=== PATIENT | female | born 1970 | race Caucasian/White ===

== ENCOUNTER 2023-04-30 17:25 | Emergency (ER) | payer OTHER, SELFPAY ==
--- NOTE | ~2023-04-30 | XR_ITS ---
EXAMINATION: XR CHEST CLINICAL INFORMATION: Chest pain COMPARISON: None available. TECHNIQUE: 2 views of the chest were obtained. FINDINGS: No significant abnormality is noted involving the heart, lungs, mediastinum, bony thorax or soft tissues. XR/XR chest 2V IMPRESSION: Unremarkable examination.
[2023-04-30 17:37] VITALS: BP 126/72; BP 132/85; PULSE 68; PULSE 73; RESP 17; TEMP 37; O2SAT 97; O2SAT 99; BMI 33.5
[2023-04-30 17:43] VITALS: PULSE 69
--- NOTE | 2023-04-30 18:00 | ECG_ITS ---
Test Reason : chest pain Blood Pressure : / mmHG Vent. Rate : 068 BPM Atrial Rate : 068 BPM P-R Int : 150 ms QRS Dur : 086 ms QT Int : 440 ms P-R-T Axes : 044 -20 003 degrees QTc Int : 467 ms Normal sinus rhythm Moderate voltage criteria for LVH, may be normal variant ( R in aVL , Humza product ) Possible Anterior infarct , age undetermined Abnormal ECG No previous ECGs available Referred By: Miguel Angel George Electronically Signed By:BELÉN PERRY MD
--- NOTE | 2023-04-30 18:20 | ED.CHESTPAIN ---
HPI - Chest Pain General Chief Complaint: Chest Pain Stated Complaint: chest pains, per ems Time Seen by Provider: 04/30/23 17:38 Source: patient Mode of arrival: ambulatory Limitations: no limitations History of Present Illness HPI narrative: 52-year-old female complains that is with chest pain. Chest pain started last night. Lasted 20 minutes. Described as pressure. Pressure was moderate in nature. It occurred while at rest lying in bed. She was able to fall asleep afterwards. The pain did not radiate. There is no associated shortness of breath, nausea vomiting. In the morning, patient woke up with severe fatigue and generalized weakness. She also complained of some moderate back pain. The pain in her back did not radiate. There is no numbness or tingling. It was not clearly worse with movement, heavy lifting, bending or position. All of her symptoms are generally getting better. She denies any history of cardiac problems. She does have thyroid dysfunction. She takes levothyroxine for history of papillary thyroid cancer. There have been no recent changes to the dose of her medication. Related Data Previous Rx's Medication Instructions Recorded potassium chloride 20 mEq oral 20 meq PO DAILY 7 days #7 ea 04/30/23 packet Allergies Allergy/AdvReac Type Severity Reaction Status Date / Time latex Allergy Rash Verified 04/30/23 17:43 Penicillins Allergy Palpitation Verified 04/30/23 17:43 s Review of Systems Review of Systems: CONSTITUTIONAL: Denies weight loss, fever and chills. HEENT: Denies changes in vision and hearing. RESPIRATORY: Denies SOB and cough. CV: Denies palpitations + CP. GI: Denies abdominal pain, nausea, vomiting and diarrhea. : Denies dysuria and urinary frequency. MSK: + myalgia and joint pain. SKIN: Denies rash and pruritus. NEUROLOGICAL: Denies headache and syncope. PSYCHIATRIC: Denies recent changes in mood. Denies anxiety and depression. All other ROS are negative unless in HPI [facility] Past Medical History Attestation statement: The following information was validated with the patient. (Hypothyroidism, thyroid cancer) [facility] Narrative: Thyroidectomy Social History Social History Alcohol intake: never Smoked in Last 30 Days: No Use of substances other than those prescribed or required for medical reasons: No Advance Directives: No Advance Directives Information Provided: No Physical Exam Vital Signs: Vital Signs: Last Vital Signs Temp 98.6 F 04/30/23 17:37 Pulse 68 04/30/23 17:37 Resp 17 04/30/23 17:37 BP 132/85 04/30/23 17:37 Pulse Ox 97 04/30/23 17:37 O2 Del Method Room Air 04/30/23 17:37 BMI result Body Mass Index 33.5 GEN: Well developed, no acute distress, alert, oriented HEENT: Normocephalic, atraumatic, normal external ears, nose appears normal, no oropharyngeal edema or exudates Eyes: Normal to appearance Neck: Supple, no lymphadenopathy Respiratory: Talks in complete sentences, no respiratory distress, clear to auscultation bilaterally Cardiovascular: Regular rate and rhythm, no murmurs rubs or gallops Abdomen: Soft, nontender, nondistended, no guarding, no rebound Back: No CVA tenderness Extremities: No clubbing cyanosis or edema Neurologic: No focal neurologic deficits, cranial nerves 2-12 intact, strength is 5/5 bilaterally Skin: No rash Course Reevaluation(s) Reevaluation #1: The workup is complete. This time, there is no evidence of myocardial infarction. She does have low potassium. She is being supplemented at this time prior to discharge. Will continue supplementation as an outpatient with follow-up labs in 1 week. TSH and free T4 as well. Overall she is feeling well. Pain is minimal at this time. Will recommend 1 day off of work, re-evaluation by her primary care doctor. Strict return instructions were also discussed. was present during this conversation. At this point, there is no evidence of acute coronary syndrome, perc score is 0 and minimal likelihood of acute pulmonary embolus that could be life-threatening, no evidence pneumothorax, widened mediastinum, apical cap. Generalized weakness might be partially explain by her hypokalemia. There is no significant anemia or hyponatremia. Time: 20:32 Medications Administered Discontinued Medications Generic Name Dose Route Start Last Admin Trade Name Freq PRN Reason Stop Dose Admin Potassium Chloride 40 meq 04/30/23 19:29 04/30/23 20:27 Potassium Chloride Packet 20 Meq Packet PO 04/30/23 19:30 40 meq ONCE ONE Administration Medical Decision Making Medical Decision Making MDM Narrative: 52-year-old female presents with chest pain. Symptoms started last night at rest. They have resolved. They lasted a total of 20 minutes. She has no cardiac history. She has no history of recent travel or surgeries. She has no history of PE or DVT denies any coronary history family history of sudden cardiac . Examination is benign. There is no evidence of lower extremity edema. Differential diagnosis could include atypical chest pain, anxiety, GERD, esophageal spasm, doubt pulmonary embolus, doubt dissection. Plan, chest x-ray, laboratory analysis, EKG. Patient has an atypical pain I doubt patient will need hospitalization assuming her troponin is negative especially given her chest pain having completed last night around midnight. Patient is also complaining of some thoracic back pain. Examination is benign. It is not radiating. Is not chest pain radiating to her back. She has equal pulses bilaterally. Again doubt dissection. Will order chest x-ray to make sure there is no widened mediastinum, apical cap or other concerning findings. Differential Diagnosis Differential Diagnoses: The differential diagnosis associated with the presentation includes (See above) Admission/Observation Consideration of admission/observation: Escalation of care including admission/observation considered Lab Data MDM Lab Attestation statement: I reviewed the patient's lab results. 04/30/23 18:35 04/30/23 18:35 Labs: Lab Results 04/30/23 04/30/23 04/30/23 Range/Units 18:35 18:35 18:35 WBC 8.1 (4.8-10.8) X10*3/uL RBC 4.73 (4.20-5.50) X10*6/uL Hgb 13.2 (12.0-16.0) g/dl Hct 39.9 (37.0-47.0) % MCV 84.4 (80.0-98.0) fL MCH 27.9 (27.0-33.0) pg MCHC 33.1 (31.0-35.0) g/dl RDW 15.0 (11.0-16.0) % Plt Count 407 H (160-400) X10*3/uL MPV 10.3 (9.4-12.3) fL Immature Gran % (Auto) 0.2 (0.0-0.4) % Neut % (Auto) 67.3 (45-73) % Lymph % (Auto) 23.3 (20-40) % [place] % (Auto) 7.6 (2-11) % Eos % (Auto) 1.2 (0-4) % Baso % (Auto) 0.4 (0-2) % Lymph # (Auto) 1.9 (1.2-4.9) X10*3/uL [place] # (Auto) 0.6 (0.1-1.2) X10*3/uL Eos # (Auto) 0.1 (0.0-0.4) X10*3/uL Baso # (Auto) 0.0 (0.0-0.2) X10*3/uL Abs Immat Gran (auto) 0.02 (0.00-0.03) X10*3/uL Absolute Neuts (auto) 5.5 (2.0-8.3) x10*3/uL Absolute Nucleated RBC 0.000 (0.0-0.012) X10*3/uL Nucleated RBC % (auto) 0.0 (0.0-0.2) /100WBC Sodium 139 (135-145) mmol/L Potassium 3.0 L (3.3-5.1) mmol/L Chloride 102 (96-108) mmol/L Carbon Dioxide 28 (22-29) mmol/L Anion Gap 12 (12-20) BUN 18 H (9-16) mg/dL Creatinine 0.74 (0.5-1.4) mg/dL Estim Creat Clear Calc 83.0 Estimated GFR > 60 Random Glucose 91 (60-115) mg/dL Calcium 10.3 H (8.4-10.2) mg/dL Troponin I High Sens < 2.7 (<3.5-17.0) ng/L TSH (0.32-4.0) uIU/mL Free T4 (0.71-1.85) ng/dL COVID-19 ([facility]) (Negative) COVID-19 Clin Com 04/30/23 04/30/23 Range/Units 18:35 18:35 WBC (4.8-10.8) X10*3/uL RBC (4.20-5.50) X10*6/uL Hgb (12.0-16.0) g/dl Hct (37.0-47.0) % MCV (80.0-98.0) fL MCH (27.0-33.0) pg MCHC (31.0-35.0) g/dl RDW (11.0-16.0) % Plt Count (160-400) X10*3/uL MPV (9.4-12.3) fL Immature Gran % (Auto) (0.0-0.4) % Neut % (Auto) (45-73) % Lymph % (Auto) (20-40) % [place] % (Auto) (2-11) % Eos % (Auto) (0-4) % Baso % (Auto) (0-2) % Lymph # (Auto) (1.2-4.9) X10*3/uL [place] # (Auto) (0.1-1.2) X10*3/uL Eos # (Auto) (0.0-0.4) X10*3/uL Baso # (Auto) (0.0-0.2) X10*3/uL Abs Immat Gran (auto) (0.00-0.03) X10*3/uL Absolute Neuts (auto) (2.0-8.3) x10*3/uL Absolute Nucleated RBC (0.0-0.012) X10*3/uL Nucleated RBC % (auto) (0.0-0.2) /100WBC Sodium (135-145) mmol/L Potassium (3.3-5.1) mmol/L Chloride (96-108) mmol/L Carbon Dioxide (22-29) mmol/L Anion Gap (12-20) BUN (9-16) mg/dL Creatinine (0.5-1.4) mg/dL Estim Creat Clear Calc Estimated GFR Random Glucose (60-115) mg/dL Calcium (8.4-10.2) mg/dL Troponin I High Sens (<3.5-17.0) ng/L TSH 0.18 L (0.32-4.0) uIU/mL Free T4 1.32 (0.71-1.85) ng/dL COVID-19 ([facility]) Negative (Negative) COVID-19 Clin Com See Note Independent Interpretation I performed an independent interpretation of an: EKG (Normal sinus rhythm heart rate 68, no acute ST elevations depressions, poor precordial progression likely normal variant.) and Plain X-Ray (Chest: No acute cardiopulmonary disease) Tests considered The following testing was considered but not selected: CT chest, not indicated at this time. Prescription Management I considered prescription management with: Pain Medication Discharge Plan Discharge Clinical Impression: Atypical chest pain, Generalized weakness, Back pain, thoracic, Acute hypokalemia Patient Disposition: Home, Self-Care Instructions: Chest Pain (ED), Potassium Content of Foods List (ED), Hypokalemia (ED), Weakness (ED), Thoracic Pain (ED), Back Pain (ED), Noncardiac Chest Pain (ED) Additional Instructions: I am recommending repeat potassium level check within 1 week. Also your TSH was slightly low injury free T4 was normal. Your primary care provider can discuss follow-up on these lab tests as well. Prescriptions: New potassium chloride 20 mEq packet 20 meq PO DAILY 7 Days Qty: 7 0RF Referrals: Physician,Unknown J [Primary Care Provider] - (PMD 1 week) Stand Alone Forms: Work/School Release
--- NOTE | 2023-04-30 18:47 | PC.NURSE ---
pt axox4, respirations even and unlabored, NSR on monitor 66BPM, skin wpd, reports cp has resolved. c/o upper left side back pain x today. iv established, labs drawn. call ruano within reach, denies questions/concerns at this time.
[2023-04-30 18:48] LABS: MANUAL DIFF FLAG NO
[2023-04-30 18:50] LABS: Basophils Percent Auto 0.4 % (0-2); Eosinophils Absolute Auto 0.1 X10*3/uL (0.0-0.4); Eosinophils Percent Auto 1.2 % (0-4); Hematocrit 39.9 % (37.0-47.0); Hemoglobin 13.2 g/dl (12.0-16.0); Imm Gran Abs Auto 0.02 X10*3/uL (0.00-0.03); Imm Gran Pct Auto 0.2 % (0.0-0.4); Lymphocytes Absolute Auto 1.9 X10*3/uL (1.2-4.9); Lymphocytes Percent Auto 23.3 % (20-40); Mean Corpuscular HGB Conc 33.1 g/dl (31.0-35.0); Mean Corpuscular Hemoglobin 27.9 pg (27.0-33.0); Mean Corpuscular Volume 84.4 fL (80.0-98.0); Mean Platelet Volume 10.3 fL (9.4-12.3); Monocytes Absolute Auto 0.6 X10*3/uL (0.1-1.2); Monocytes Percent Auto 7.6 % (2-11); Neutrophils Absolute Auto 5.5 x10*3/uL (2.0-8.3); Neutrophils Percent Auto 67.3 % (45-73); Platelet Count 407 X10*3/uL (160-400); Red Blood Count 4.73 X10*6/uL (4.20-5.50); White Blood Count 8.1 X10*3/uL (4.8-10.8)
[2023-04-30 19:03] LABS: COVID-19 Test Negative (Negative); IDNOW Serial# 6674DD1D
[2023-04-30 19:14] LABS: Anion Gap 12 (12-20); Blood Urea Nitrogen 18 mg/dL (9-16); Calcium 10.3 mg/dL (8.4-10.2); Carbon Dioxide 28 mmol/L (22-29); Chloride 102 mmol/L (96-108); Estimated Glomerular Filt Rate > 60; Glucose Random 91 mg/dL (60-115); Sodium 139 mmol/L (135-145)
[2023-04-30 19:24] LABS: Troponin-I High Sensitivity < 2.7 ng/L (<3.5-17.0)
[2023-04-30 19:37] LABS: TSH reflex Free T4 0.18 uIU/mL (0.32-4.0)
[2023-04-30 20:08] LABS: Free T4 (Free Thyroxine) 1.32 ng/dL (0.71-1.85)
[2023-04-30] MEDS: Potassium Chloride Packet 20 MEQ PACKET 40 MEQ PO (20:27)
--- NOTE | 2023-04-30 20:29 | PC.NURSE ---
Patient alert and oriented, MD at beside, plan for potassium supplementation po at home. Patient reports no pain.
[2023-04-30 20:32] VITALS: BP 136/63; PULSE 64; RESP 15; O2SAT 98
== END 2023-04-30 21:39 | disposition home or self-care (01) ==
PROVIDERS: Emergency Provider Emergency Medicine
DX: R07.89 Other chest pain (principal); R53.1 Weakness; M54.6 Pain in thoracic spine; E87.6 Hypokalemia; Z20.822 Contact with and (suspected) exposure to COVID-19; C73 Malignant neoplasm of thyroid gland; Z79.899 Other long term (current) drug therapy
CPT/HCPCS: 36415; 71046; 80048; 84439; 84443; 84484; 85025; 87635; 93005; 99284; 99285

== ENCOUNTER → 2023-04-30 18:00 | Outpatient (BNV) | payer OTHER, SELFPAY | PROVIDERS: Emergency Provider Emergency Medicine; Visit Provider Internal Medicine Cardiovascular Disease | DX: R94.31 Abnormal electrocardiogram [ECG] [EKG] (principal) | CPT/HCPCS: 93010 ==

== ENCOUNTER 2024-02-27 22:23 | Emergency (ER) | payer OTHER, SELFPAY ==
--- NOTE | ~2024-02-27 | XR_ITS ---
EXAMINATION: XR CHEST CLINICAL INFORMATION: Pain COMPARISON: 04/30/2023 TECHNIQUE: Frontal view of the chest was obtained. FINDINGS: Lung volumes are symmetric. No focal consolidation is seen. There is mild prominence of the central vasculature. No evidence of pneumothorax or significant pleural effusion. Cardiac silhouette appears borderline enlarged. No acute osseous findings are seen. XR/XR chest 1V IMPRESSION: No focal consolidation. Mild prominence of the central vasculature may reflect congestion.
--- NOTE | 2024-02-27 22:27 | ECG_ITS ---
Test Reason : CP Blood Pressure : / mmHG Vent. Rate : 074 BPM Atrial Rate : 074 BPM P-R Int : 142 ms QRS Dur : 082 ms QT Int : 410 ms P-R-T Axes : 033 -14 009 degrees QTc Int : 455 ms Normal sinus rhythm Minimal voltage criteria for LVH, may be normal variant ( R in aVL ) Borderline ECG When compared with ECG of 30-APR-2023 18:12, No significant change was found Referred By: Generic ED Physician Electronically Signed By:Chaitanya Arredondo
[2024-02-27 22:34] VITALS: BP 167/68; PULSE 66; RESP 20; TEMP 37; O2SAT 97; BMI 32.8
[2024-02-27 22:58] LABS: MANUAL DIFF FLAG NO
[2024-02-27 22:59] LABS: Basophils Percent Auto 0.5 % (0-2); Eosinophils Absolute Auto 0.2 X10*3/uL (0.0-0.4); Eosinophils Percent Auto 2.4 % (0-4); Hematocrit 33.4 % (37.0-47.0); Hemoglobin 11.5 g/dl (12.0-16.0); Imm Gran Abs Auto 0.02 X10*3/uL (0.00-0.03); Imm Gran Pct Auto 0.3 % (0.0-0.4); Lymphocytes Absolute Auto 1.9 X10*3/uL (1.2-4.9); Lymphocytes Percent Auto 25.5 % (20-40); Mean Corpuscular HGB Conc 34.4 g/dl (31.0-35.0); Mean Corpuscular Hemoglobin 28.3 pg (27.0-33.0); Mean Corpuscular Volume 82.3 fL (80.0-98.0); Mean Platelet Volume 10.8 fL (9.4-12.3); Monocytes Absolute Auto 0.5 X10*3/uL (0.1-1.2); Monocytes Percent Auto 7.2 % (2-11); Neutrophils Absolute Auto 4.7 x10*3/uL (2.0-8.3); Neutrophils Percent Auto 64.1 % (45-73); Platelet Count 329 X10*3/uL (160-400); Red Blood Count 4.06 X10*6/uL (4.20-5.50); Red Cell Distribution Width 15.8 % (11.0-16.0); White Blood Count 7.4 X10*3/uL (4.8-10.8)
[2024-02-27 23:11] LABS: Anion Gap 13 (12-20); Blood Urea Nitrogen 11 mg/dL (9-16); Calcium 8.7 mg/dL (8.4-10.2); Carbon Dioxide 22 mmol/L (22-29); Chloride 110 mmol/L (96-108); Creatinine Clr Calc Pharmacy 83.3; Estimated Glomerular Filt Rate > 60; Glucose Random 112 mg/dL (60-115); Potassium 3.3 mmol/L (3.3-5.1); Sodium 142 mmol/L (135-145)
--- NOTE | 2024-02-27 23:17 | ED.CHESTPAIN ---
HPI - Chest Pain General Chief Complaint: Chest Pain Stated Complaint: chest pain/sob Time Seen by Provider: 02/27/24 23:15 Source: patient Mode of arrival: ambulatory Limitations: no limitations History of Present Illness HPI narrative: 53 yo female with PMH of PVCs, thyroidectomy, HTN, thyroid cancer, HLD, GERD, on HRT here with c/o watching a movie at 6pm then noting she started to have palpitations with L sided chest pain and felt short of breath. She has had this before. No recent travel or URI. MD complaint: chest pain Onset (ago): hour(s) ( 6) Timing of current episode: constant Prior episodes: No Onset: during rest Pain location: substernal Pain radiation: none Severity: mild Quality: tightness Relieving factors: nothing Exacerbating factors: nothing Associated symptoms: dyspnea and palpitations Treatment prior to arrival: none Related Data Previous Rx's ?Medication ?Instructions ?Recorded potassium chloride 20 mEq oral 20 meq PO DAILY 7 days #7 ea 04/30/23 packet furosemide 20 mg tablet (Lasix) 20 mg PO DAILY #3 tabs 02/28/24 potassium chloride 20 mEq oral 20 meq PO DAILY 5 days #30 ea 02/28/24 packet Allergies Allergy/AdvReac Type Severity Reaction Status Date / Time latex Allergy Rash Verified 02/27/24 22:36 Penicillins Allergy Palpitation Verified 02/27/24 22:36 s [facility] Past Medical History Attestation statement: The following information was validated with the patient. Medical History PVC (premature ventricular contraction) HTN (hypertension) GERD (gastroesophageal reflux disease) Hyperlipidemia Social History Social History (Updated 02/28/24 @ 01:03 by Windy Alcaraz DO) Alcohol intake: never Patient Tobacco Use Status: Never used Tobacco Smoked in Last 30 Days: No Advance Directives: No Advance Directives Information Provided: No Physical Exam Vital Signs: Vital Signs: Last Vital Signs Temp 98.8 F 02/27/24 23:33 Pulse 69 02/27/24 23:33 Resp 18 02/27/24 23:33 BP 176/82 H 02/27/24 23:33 Pulse Ox 99 02/27/24 23:33 O2 Del Method Room Air 02/27/24 23:33 BMI result Body Mass Index 32.8 Appearance: Alert. Oriented X3. No acute distress. Eyes: Pupils equal, round and reactive to light. ENT: Pharynx normal. Neck: Normal inspection. Neck supple. CVS: Normal heart rate and rhythm. Pulses normal. Respiratory: No respiratory distress. Breath sounds normal. Abdomen: Soft and nontender. Skin: Skin warm and dry. Normal skin color. Normal skin turgor. Extremities: No lower extremity edema. No calf ttp Neuro: Oriented X 3. No motor deficit. No sensory deficit. Medications Administered Discontinued Medications Generic Name Dose Route Start Last Admin Trade Name Freq PRN Reason Stop Dose Admin Potassium Chloride 40 meq 02/27/24 23:37 02/27/24 23:42 Potassium Chloride Packet 20 Meq Packet PO 02/27/24 23:38 40 meq ONCE ONE Administration Medical Decision Making Medical Decision Making [facility] Narrative: 53 yo female with PMH of PVCs, thyroidectomy, HTN, thyroid cancer, HLD, GERD, on HRT here with c/o feeling pain and palpitations at 6pm at rest - it lasted 30 minutes. She notes her BP felt high. At this time 5 hr trop and EKG nonischemic. Given her risk factors will add on ddimer, BNP and CXR. Will recheck BP. Distal pulses are intact at this time doubt dissection. Low susp for ACS started at rest atypical in nature Differential Diagnosis Differential Diagnoses: The differential diagnosis associated with the presentation includes atypical chest pain, palpitations, low prob VTE Admission/Observation Consideration of admission/observation: Escalation of care including admission/observation considered possible congestion on CXR BNP slightly bumped will do low dose lasix and K x 3 days. work up negative stable for DC Lab Data [facility] Lab Attestation statement: I reviewed the patient's lab results. 02/27/24 22:52 02/27/24 22:52 Labs: Lab Results 02/27/24 02/27/24 02/27/24 Range/Units 22:52 22:53 23:48 WBC 7.4 (4.8-10.8) X10*3/uL RBC 4.06 L (4.20-5.50) X10*6/uL Hgb 11.5 L (12.0-16.0) g/dl Hct 33.4 L (37.0-47.0) % MCV 82.3 (80.0-98.0) fL MCH 28.3 (27.0-33.0) pg MCHC 34.4 (31.0-35.0) g/dl RDW 15.8 (11.0-16.0) % Plt Count 329 (160-400) X10*3/uL MPV 10.8 (9.4-12.3) fL Immature Gran % (Auto) 0.3 (0.0-0.4) % Neut % (Auto) 64.1 (45-73) % Lymph % (Auto) 25.5 (20-40) % [place] % (Auto) 7.2 (2-11) % Eos % (Auto) 2.4 (0-4) % Baso % (Auto) 0.5 (0-2) % Lymph # (Auto) 1.9 (1.2-4.9) X10*3/uL [place] # (Auto) 0.5 (0.1-1.2) X10*3/uL Eos # (Auto) 0.2 (0.0-0.4) X10*3/uL Baso # (Auto) 0.0 (0.0-0.2) X10*3/uL Abs Immat Gran (auto) 0.02 (0.00-0.03) X10*3/uL Absolute Neuts (auto) 4.7 (2.0-8.3) x10*3/uL Absolute Nucleated RBC 0.000 (0.0-0.012) X10*3/uL Nucleated RBC % (auto) 0.0 (0.0-0.2) /100WBC D-Dimer High Sensitivty < 150 NG/ML Sodium 142 (135-145) mmol/L Potassium 3.3 (3.3-5.1) mmol/L Chloride 110 H (96-108) mmol/L Carbon Dioxide 22 (22-29) mmol/L Anion Gap 13 (12-20) BUN 11 (9-16) mg/dL Creatinine 0.72 (0.5-1.4) mg/dL Estim Creat Clear Calc 83.3 Estimated GFR > 60 Random Glucose 112 (60-115) mg/dL Calcium 8.7 D (8.4-10.2) mg/dL Magnesium 2.0 (1.6-2.6) mg/dL Troponin I High Sens < 2.7 (<3.5-17.0) ng/L B-Natriuretic Peptide 123 H (<100) pg/mL TSH 1.69 (0.32-4.0) uIU/mL Independent Interpretation I performed an independent interpretation of an: EKG and Plain X-Ray (normal ) Interpretation: Rate: 74 Rhythm: NSR [place]: left Normal P waves. Normal MALISSA. Normal QRS complex. ST T wave : no VINNIE, inverted t wave III qTC: 455 prior studies: no acute ischemia The study has been interpreted contemporaneously by me. . Radiology Impression Discussion of test interpretation with radiology: I have reviewed the radiologist's reading. Independent Historian Clinical information obtained from an independent historian. History obtained from or confirmed by: Spouse External Record Review External record reviewed: Inpatient record Discharge Plan Discharge Clinical Impression: Atypical chest pain, Heart palpitations Patient Disposition: Home, Self-Care Instructions: Chest Pain (ED), Heart Palpitations (ED) Additional Instructions: return for worsening symptoms - increased pain, difficulty breathing, fainting or any other concerns. monitor your blood pressure and call your doctor this morning negative tests for heart attack and blood clot slight congestion and fluid in lungs minimal Prescriptions: New furosemide [Lasix] 20 mg tablet 20 mg PO DAILY Qty: 3 0RF potassium chloride 20 mEq packet 20 meq PO DAILY 5 Days Qty: 30 0RF No Action potassium chloride 20 mEq packet 20 meq PO DAILY 7 Days Qty: 7 0RF Stand Alone Forms: Work/School Release Print Language: Burmese
[2024-02-27 23:21] LABS: Troponin-I High Sensitivity < 2.7 ng/L (<3.5-17.0)
--- OUTSIDE RECORDS SUMMARY | 2024-02-27 23:29 | XMS_ITS | Continuity of Care Document ---
Author Organization [facility] Address [address] [place] [address]- Care Team Providers Care Commercial Ocean Clammer Name Role Phone Ijoema Lim MD Primary Care Physician [place] [facility] [place]/12[place]22 - 04/11/22 [facility] [address] [place], [place] [address] Allergies, Adverse Reactions, Alerts Substance Reaction Severity Status penicillin ITCHY Active Latex RASH, ÁLVAREZ AND ITCHES Activ e Immunizations Given and Recorded Vaccine Date Status Refusal Reason SARS-CoV-2 (COVID-19) mRNA-1273 vaccine 09/01/21 R ecorded SARS-CoV-2 (COVID-19) mRNA-1273 vaccine 1 11/24/20 Recorded SARS-CoV-2 (COVID-19) mRNA-1273 vaccine 10/27/20 R ecorded Influenza Virus Vaccine (oldterm) 2 07/21/20 Recor ded Influenza Virus Vaccine (oldterm) 08/27/19 Recorde d influenza virus vaccine, inactivated 09/02/19 Joshua rded influenza virus vaccine, inactivated 07/25/18 Joshua rded influenza virus vaccine, inactivated 12/27/17 Give n pneumococcal 23-valent vaccine 02/17/19 Given tetanus/diphtheria/pertussis, acel(Tdap) 12/27/17 Given 1Result Comment: Done at [employer] 2Result Comment: Done at work Medications Albuterol (Eqv-ProAir HFA) 90 mcg/inh inhalation aerosol 2 puffs, Inhalation, Every 6 hours, PRN NEEDED FOR WHEEZING/SHORTNESS OF BREATH, for 90 days, # 3 each, 1 Refills, Physician Stop 04/22/22 14:40:00 EDT, 10/24/21 14:40:00 EST, [facility], 2 puffs Inhalation Every 6 hours,x90 days... Start Date: 10/24/21 Stop Date: 04/22/22 Status: Ordered aspirin 81 mg oral delayed release tablet 81 mg, 1, tablet, By Mouth, Daily, Refills 0, Maintenance, 12/11/21 12:26:00 EST, Partial fill uponpatient request if the prescription is for a schedule II opioid drug. Start Date: 12/11/21 Status: Ordered chlorthalidone 25 mg oral tablet 25 mg, 1, tablet, By Mouth, Daily, # 90 tablet, Refills 3, Tot. Refills 3, Maintenance, 10/24/21 14:40:00 EST, Route to Pharmacy Electronically, [facility], 152.4, cm, 07/12/21 14:27:00 EDT, Height, 75.9, kg, 05/12/21 16:11:00 EDT,... Start Date: 10/24/21 Stop Date: 10/19/22 Status: Ordered Estrace 1 mg oral tablet 1 mg, 1, tablet, By Mouth, Daily, Refills 0, Maintenance, 12/11/21 12:26:00 EST, Partial fill upon patient request if the prescription is for a schedule II opioid drug. Start Date: 12/11/21 Status: Ordered famotidine 40 mg oral tablet 1 tablet = 40 mg, By Mouth, Daily at bedtime, # 90 tablet, 3 Refills, Maintenance, 01/11/22 15:35:00 EDT, Tablet, [facility]/pharmacy #[id number], Partial fill upon patient request if the prescription is for a schedule II opioid drug., 152.4, cm, 01/11/22 15:23:00... Start Date: 01/11/22 Status: Ordered levothyroxine 125 mcg (0.125 mg) oral tablet 1 tablet = 125 mcg, By Mouth, Daily, # 90 tablet, 2 Refills, Hard Stop 10/27/22 22:00:00 EST, 11/01/21 22:00:00 EST, Tablet, [facility], Partial fill upon patient request if the prescription is for a schedule II opioid drug., 152.4,... Start Date: 11/01/21 Stop Date: 10/27/22 Status: Ordered levothyroxine 125 mcg (0.125 mg) oral tablet 1 tablet = 125 mcg, By Mouth, Daily, # 90 tablet, 2 Refills, Maintenance, 10/27/22 22:00:00 EST, Tablet, [facility]/pharmacy #[id number], Partial fill upon patient request if the prescription is for a schedule IIopioid drug., 152.4, cm, 03/30/22 13:46:00 EDT, Hei... Start Date: 10/27/22 Status: Ordered losartan 50 mg oral tablet 50 mg, 1, tablet, By Mouth, Daily, # 90 tablet, Refills 3, Tot. Refills 3, Maintenance, 10/24/21 14:39:00 EST, Route to Pharmacy Electronically, [facility], 100 mg tab on backorder, 152.4, cm, 07/12/21 14:27:00 EDT, Height, 75.9, kg... Start Date: 10/24/21 Stop Date: 10/19/22 Status: Ordered Vitamin D3 1000 intl units oral capsule 1 capsule = 1,000 International_Units, By Mouth, Daily, # 90 capsule, 3 Refills, Maintenance, 07/12/21 15:00:00 EDT, Capsule, [facility]/pharmacy #[id number], 152.4, cm, 07/12/21 14:27:00 EDT, Height, 75.9, kg, 05/12/21 16:11:00 EDT, Dry Weight Start Date: 07/12/21 Stop Date: 07/07/22 Status: Ordered Problem List Condition Effective Dates Status Health Status Inform ant Asthma(Confirmed) Active Chronic back pain(Confirmed) Active GERD (gastroesophageal reflu x disease)(Confirmed) Active Hypertension(Confirmed) Active Hypothyroidism(Confirmed) Active Encounter for IUD removal(Confirmed) Active Obese class I(Confirmed) Active Papillary thyroid carcinoma - s/p total thyroidectomy 11/12/2018(Confirmed) Active PVCs (premature ventricular contractions)(Confirmed) Active Social History Social History Type Response Smoking Status Never smoker; [place] o user in household: No entered on: 10/01/17 Sex
--- OUTSIDE RECORDS SUMMARY | 2024-02-27 23:29 | XMS_ITS | Continuity of Care Document ---
Author Organization [facility] Address [address] [place] [address]- Care Team Providers Care Hot Mill Observer Name Role Phone Raphael WILDER, Ijeoma Toth Primary Care Physician Encounter [facility] Date(s): 06/01/20 - 07/01/20 [facility] [address] [place] [address]- [facility] Allergies, Adverse Reactions, Alerts Substance Reaction Severity Status penicillin ITCHY Active Latex RASH, ÁLVAREZ AND ITCHES Activ e Immunizations Given and Recorded Vaccine Date Status Refusal Reason Influenza Virus Vaccine (oldterm) 08/27/19 Recorde d pneumococcal 23-valent vaccine 02/17/19 Given influenza virus vaccine, inactivated 12/27/17 Give n tetanus/diphtheria/pertussis, acel(Tdap) 12/27/17 Given Medications albuterol CFC free 90 mcg/inh inhalation aerosol 2, puffs, Inhalation, Every 6 hours, PRN, # 8.5 Gm, Refills 0, Tot. Refills 0, Maintenance, 02/12/20 13:54:00 EDT, Inhaler, Route to Pharmacy Electronically, [id number], [facility]/pharmacy #[id number], 152, cm, 01/18/20 9:51:00 EDT, Heig... Start Date: 02/12/20 Status: Ordered aspirin 81 mg oral delayed release tablet 81 mg, 1, tablet, By Mouth, Daily, # 30 tablet, Refills 5, Tot. Refills 5, Maintenance, 02/15/20 15:17:00 EDT, Route to Pharmacy Electronically, [facility]/pharmacy #[id number], 152, cm, 01/18/20 9:51:00 EDT, Height, 67.27, kg, 01/26/19 8:44:00 EDT, Dry Weight Start Date: 02/15/20 Status: Ordered chlorthalidone 25 mg oral tablet 25 mg, 1, tablet, By Mouth, Daily, # 30 tablet, Refills 5, Tot. Refills 5, Maintenance, 02/15/20 15:17:00 EDT, Route to Pharmacy Electronically, [facility]/pharmacy #[id number], 152, cm, 01/18/20 9:51:00 EDT, Height, 67.27, kg, 01/26/19 8:44:00 EDT, Dry Weight Start Date: 02/15/20 Status: Ordered ferrous sulfate 325 mg oral tablet 1 tablet = 325 mg, By Mouth, Daily, Please take Saturday, Saturday, Saturday, # 90 tablet, 3 Refills, Maintenance, 04/06/19 11:47:50 EDT, Tablet Start Date: 04/06/19 Status: Ordered levothyroxine 0.137 mg oral tablet 1 tablet = 137 mcg, By Mouth, Daily, labs needed, # 90 tablet, 0 Refills, Maintenance, 05/25/20 9:12:00 EDT, [facility]/pharmacy #[id number], labs needed, 152, cm, 03/16/20 15:37:00 EDT, Height, 67.27, kg, 01/26/19 8:44:00 EDT, Dry Weight Start Date: 05/25/20 Status: Ordered losartan 50 mg oral tablet 100 mg, 2, tablet, By Mouth, Daily, # 180 tablet, Refills 3, Tot. Refills 3, Maintenance, 01/21/20 9:57:00 EDT, Route to Pharmacy Electronically, [facility]/pharmacy #[id number], 100 mg tab on backorder, 152, cm,01/18/20 9:51:00 EDT, Height, 67.27, kg, 01/26/19 8... Start Date: 01/21/20 Stop Date: 01/15/21 Status: Ordered NIFEdipine 90 mg oral tablet, extended release 90 mg, 1, tablet, By Mouth, Daily, # 30 tablet, Refills 5, Tot. Refills 5, Maintenance, 02/15/20 15:17:00 EDT, Route to Pharmacy Electronically, [facility]/pharmacy #[id number], 152, cm, 01/18/20 9:51:00 EDT, Height, 67.27, kg, 01/26/19 8:44:00 EDT, Dry Weight Start Date: 02/15/20 Stop Date: 08/13/20 Status: Ordered omeprazole 20 mg oral enteric coated capsule 1 capsule = 20 mg, By Mouth, Daily, # 90 capsule, 3 Refills, Maintenance, 05/26/20 15:26:00 EDT, ECCapsule, [facility]/pharmacy #[id number], 152, cm, 03/16/20 15:37:00 EDT, Height, 67.27, kg, 01/26/19 8:44:00 EDT, Dry Weight Start Date: 05/26/20 Status: Ordered pravastatin 40 mg oral tablet 1 tablet = 40 mg, By Mouth, Daily, # 30 tablet, 5 Refills, Maintenance, 02/15/20 15:18:00 EDT, Tablet, [facility]/pharmacy #[id number], 152, cm, 01/18/20 9:51:00 EDT, Height, 67.27, kg, 01/26/19 8:44:00 EDT, Dry Weight Start Date: 02/15/20 Status: Ordered Vitamin D3 1000 intl units oral capsule 1 capsule = 1,000 International_Units, By Mouth, Daily, # 90 capsule, 3 Refills, Maintenance, 05/25/20 10:43:00 EDT, Capsule, [facility]/pharmacy #[id number], 152, cm, 03/16/20 15:37:00 EDT, Height, 67.27, kg, 01/26/19 8:44:00 EDT, Dry Weight Start Date: 05/25/20 Stop Date: 05/20/21 Status: Ordered Problem List Condition Effective Dates Status Health Status Inform ant Abnormal uterine bleeding (AUB)(Confirmed) Active Asthma(Confirmed) Active Chronic back pain(Confirmed) Active GERD (gastroesophageal reflu x disease)(Confirmed) Active Hypertension(Confirmed) Active Hypothyroidism(Confirmed) Active Encounter for IUD removal(Confirmed) Active Papillary thyroid carcinoma - s/p total thyroidectomy 11/12/2018(Confirmed) Active PVCs (premature ventricular contractions)(Confirmed) Active Social History Social History Type Response Smoking Status Never smoker; Tobacc o user in household: No entered on: 10/01/17 Sex
--- OUTSIDE RECORDS SUMMARY | 2024-02-27 23:29 | XMS_ITS | Continuity of Care Document ---
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 Role Phone Ijeoma Lim MD Primary Care Physician [phone] Encounter [facility] Date(s): 06/01/22 - 07/01/22 [facility] [address] [place], [place] [address] Allergies, Adverse Reactions, Alerts Substance Reaction Severity [...] acel(Tdap) 12/27/17 Given 1Result Comment: Done at [employer] 2Result Comment: Done at work Medications aspirin 81 mg oral delayed release tablet [...] Date: 10/24/21 Stop Date: 10/19/22 Status: Ordered cyclobenzaprine 10 mg oral tablet 10 mg, 1, tablet, By Mouth, 3 times a day, # 10 tablet, Refills 1, Tot. Refills 1, Acute 07/05/22 17:07:00 EDT, 06/28/22 17:06:00 EDT, Route to Pharmacy Electronically, [facility]/pharmacy #[id number], Partial fill upon patient request if the prescription is for a... Start Date: 06/28/22 Stop Date: 07/05/22 Status: Ordered Estrace 1 mg oral tablet [...] 3 Refills, Maintenance, 01/11/22 15:35:00 EDT, Tablet, [id number], Partial fill upon patient request if the prescription is for a schedule II opioid drug., 152.4, cm, 01/11/22 15:23:00... Start Date: 01/11/22 Status: Ordered levothyroxine 0.125 mg oral tablet 0 Refills, Maintenance, 05/09/22 16:28:00 EDT, Partial fill upon patient request if the prescription is for a schedule II opioid drug. Start Date: 05/09/22 Status: Ordered losartan 50 mg oral tablet 50 mg, 1, tablet, By Mouth, Daily, # 90 tablet, Refills 3, Tot. Refills 3, Maintenance, 04/26/22 15:42:00 EDT, Route to Pharmacy Electronically, [facility]/pharmacy #[id number], 100 mg tab on backorder, 152.4, cm, 03/30/22 13:46:00 EDT, Height, 73.5, kg, 12/12/21... Start Date: 04/26/22 Stop Date: 04/21/23 Status: Ordered rosuvastatin 20 mg oral tablet 1 tablet = 20 mg, By Mouth, Daily, # 90 tablet, 0 Refills, Maintenance, 04/27/22 17:16:00 EDT, [id number], familial hyperlipidemia. pravastatin not effective., 152.4, cm, 03/30/22 13:46:00 EDT, Height, 73.5, kg, 12/12/21 9:43:00 EST, Dry Weight Start Date: 04/27/22 Stop Date: 07/26/22 Status: Ordered Vitamin D3 1000 intl units oral capsule 1 capsule = 1,000 International_Units, By Mouth, Daily, # 90 capsule, 3 Refills, Maintenance, 07/12/21 15:00:00 EDT, Capsule, [id number], 152.4, cm, 07/12/21 14:27:00 EDT, Height, [...] carcinoma - s/p total thyroidectomy 11/12/2018(Confirmed) Active Health care maintenance(Confirmed) Active PVCs (premature ventricular contractions)(Confirmed) Active Social History Social History Type Response Smoking Status Never smoker; Tobacc o user in household: No entered on: 10/01/17 Sex Care Team Personnel Name: Ijeoma Lim MD Address: [address] [place] [address] Adult & Pediatric [address]
--- OUTSIDE RECORDS SUMMARY | 2024-02-27 23:29 | XMS_ITS | Continuity of Care Document ---
Author Organization [facility] Address [address] [place] [address]- Care Team Providers Care Social Work Lecturer Name Role Phone Ijeoma Lim MD Primary Care Physician [place] [facility] 05/09/23 - 06/08/23 [facility] [address] [place] [id number] Allergies, Adverse Reactions, Alerts Substance Reaction [...] acel(Tdap) 12/27/17 Given 1Result Comment: Done at [employer] 2Result Comment: Done at work Medications chlorthalidone 25 mg oral tablet 25 mg, 1, tablet, By Mouth, Daily, # 90 tablet, Refills 3, Tot. Refills 3, Maintenance, 08/13/22 12:20:00 EDT, Route to Pharmacy Electronically, [facility]/pharmacy #[id number], 152.4, cm, 08/10/22 15:55:00 EDT, Height, 75.6, kg, 05/14/22 7:15:00 EDT, Dry Weight Start Date: 08/13/22 Stop Date: 08/08/23 Status: Ordered Estrace 1 mg oral tablet [...] 3 Refills, Maintenance, 01/11/22 15:35:00 EDT, Tablet, [facility]/pharmacy #[id number], Partial fill upon patient request if the prescription is for a schedule II opioid drug., 152.4, cm, 01/11/22 15:23:00... Start Date: 01/11/22 Status: Ordered FLUoxetine 10 mg oral capsule 10 mg, 1, capsule, By Mouth, Daily, # 90 capsule, Refills 1, Tot. Refills 1, Maintenance, 03/06/23 9:30:00 EDT, Route to Pharmacy Electronically, [facility]/pharmacy #[id number], Partial fill upon patient requestif the prescription is for a schedule II opioid eva... Start Date: 03/06/23 Stop Date: 09/02/23 Status: Ordered levothyroxine 150 mcg (0.15 mg) oral tablet See Instructions, 1 tablet By Mouth 6 days weekly . as directed with plenty of water as a single daily dose before breakfast avoid antacids, calcium, or iron for at least 4 hrs before or 4 hrs after,# 30 each, 11 Refills, Maintenance, 05/09/23 1:... Start Date: 05/09/23 Status: Ordered losartan 50 mg oral tablet 50 mg, 1, tablet, By Mouth, Daily, # 90 tablet, Refills 3, Tot. Refills 3, Maintenance, 05/06/23 10:17:00 EDT, Route to Pharmacy Electronically, [facility]/pharmacy #[id number], 100 mg tab on backorder, 152.4, cm, 05/06/23 9:42:00 EDT, Height, 75.6, kg, 05/14/22 7... Start Date: 05/06/23 Stop Date: 04/30/24 Status: Ordered montelukast 10 mg oral tablet 10 mg, 1, tablet, By Mouth, Daily, # 90 tablet, Refills 3, Tot. Refills 3, Maintenance, 05/06/23 10:17:00 EDT, Route to Pharmacy Electronically, [facility]/pharmacy #[id number], Partial fill upon patient request if the prescription is for a schedule II opioid drug... Start Date: 05/06/23 Stop Date: 04/30/24 Status: Ordered potassium chloride 20 mEq oral tablet, extended release 1 tablet = 20 mEq, By Mouth, Daily, # 30 tablet, 1 Refills, Maintenance, 05/11/23 22:39:00 EDT, ER Tablet, [facility]/pharmacy #[id number], Partial fill upon patient request if the prescription is for a schedule II opioid drug., 152.4, cm, 05/06/23 9:42:00 EDT, He... Start Date: 05/11/23 Stop Date: 07/10/23 Status: Ordered rosuvastatin 20 mg oral tablet 1 tablet, By Mouth, Daily, # 90 tablet, 3 Refills, Maintenance, 01/09/23 9:26:00 EDT, [id number], 152.4, cm, 01/09/23 8:53:00 EDT, Height, 75.6, kg, 05/14/22 7:15:00 EDT, Dry Weight Start Date: 01/09/23 Status: Ordered Vitamin D3 1000 intl units oral capsule 1 capsule = 1,000 International_Units, By Mouth, Daily, # 90 capsule, 3 Refills, Maintenance, 01/09/23 9:26:00 EDT, Capsule, [facility]/pharmacy #[id number], 152.4, cm, 01/09/23 8:53:00 EDT, Height, 75.6, kg, 05/14/22 7:15:00 EDT, Dry Weight Start Date: 01/09/23 Stop Date: 01/04/24 Status: Ordered Problem List Condition Confirmation Course Effective Dates Status H ealth Status Informant Asthma Confirmed Active Chronic back pain Confirmed Active GERD (gastroesophageal reflux disease) Confirmed Active Hypertension Confirmed Active Hypothyroidism Confirmed Active Encounter for IUD removal Confirmed Active Obese class I Confirmed Active Papillary thyroid carcinoma - s/p total thyroidectomy 11/12/2018 Confirmed Active Health care maintenance Confirmed Active PVCs (premature ventricular contractions) Confirmed Active Social History Social History Type Response Smoking Status Never smoker; Tobacc o user in household: No entered on: 10/01/17 Sex Patient Care team information Care Team Personnel Name: Raphael WILDER, Ijeoma Toth Position: S Physician - Primary Care Member Role: PCP Address: Address: [address] [place] [address] Adult [place] [address]- Care Team Related Persons Name: TAZ BATES Address: home [address] [place] [address]
--- OUTSIDE RECORDS SUMMARY | 2024-02-27 23:29 | XMS_ITS | Continuity of Care Document ---
Author Organization [facility] Address [address] [place] [address]- Care Team Providers Care Manager Cancer Name Role Phone Ijeoma Lim MD Primary Care Physician Encounter [facility] [place] Date(s): 03/05/21 - 04/04/21 [facility] [address] [place], [place] [address] Allergies, Adverse Reactions, Alerts Substance Reaction Severity Status penicillin ITCHY Active Latex RASH, ÁLVAREZ AND ITCHES Activ e Immunizations Given and Recorded Vaccine Date Status Refusal Reason SARS-CoV-2 (COVID-19) mRNA-1273 vaccine 1 11/24/20 Recorded [...] Shiners 2Result Comment: Done at work Medications albuterol CFC free 90 mcg/inh inhalation aerosol 2, puffs, Inhalation, Every 6 hours, PRN, # 8.5 Gm, Refills 0, Tot. Refills 0, Maintenance, 02/12/20 13:54:00 EDT, Inhaler, Route to Pharmacy Electronically, [id number], [id number], 152, cm, 01/18/20 9:51:00 EDT, Ruddy Start Date: 02/12/20 Status: Ordered Teodora 0.1 mg/24 hours twice weekly transdermal film, extended release See Instructions, 0.1 mg estradiol patch transdermal, reapply every 72 hours, # 2 patch, 0 Refills,Maintenance, 01/28/21 17:24:00 EDT, [facility]/pharmacy #[id number], Partial fill upon patient request if the prescription is for a schedule II opioid drug., 152.4,... Start Date: 01/28/21 Status: Ordered chlorthalidone 25 mg oral tablet 25 mg, 1, tablet, By Mouth, Daily, # 90 tablet, Refills 3, Tot. Refills 3, Maintenance, 07/07/20 14:00:00 EDT, Route to Pharmacy Electronically, [facility]/pharmacy #[id number], 152, cm, 03/16/20 15:37:00 EDT, Height, 67.27, kg, 01/26/19 8:44:00 EDT, Dry Weight Start Date: 07/07/20 Stop Date: 07/02/21 Status: Ordered ferrous sulfate 325 mg oral tablet 1 tablet = 325 mg, By Mouth, Daily, Please take Saturday, Saturday, Saturday, # 90 tablet, 3 Refills, Maintenance, 04/06/19 11:47:50 EDT, Tablet Start Date: 04/06/19 Status: Ordered levothyroxine 0.137 mg oral tablet 1 tablet = 137 mcg, By Mouth, Daily, # 90 tablet, 1 Refills, Maintenance, 12/20/20 13:28:00 EST, [facility]/pharmacy #[id number], labs needed, 152, cm, 09/14/20 10:51:00 EST, Height, 67.27, kg, 01/26/19 8:44:00 EDT, Dry Weight Start Date: 12/20/20 Status: Ordered losartan 50 mg oral tablet 50 mg, 1, tablet, By Mouth, Daily, # 90 tablet, Refills 1, Tot. Refills 1, Maintenance, 01/26/21 14:32:00 EDT, Route to Pharmacy Electronically, [facility]/pharmacy #[id number], 100 mg tab on backorder, 152.4, cm, 01/20/21 12:01:00 EDT, Height, 73.64, kg, 01/20/21... Start Date: 01/26/21 Stop Date: 07/25/21 Status: Ordered omeprazole 20 mg oral enteric coated capsule 1 capsule = 20 mg, By Mouth, Daily, # 90 capsule, 3 Refills, Maintenance, 05/26/20 15:26:00 EDT, ECCapsule, [id number], 152, cm, 03/16/20 15:37:00 EDT, Height, 67.27, kg, 01/26/19 8:44:00 EDT, Dry Weight Start Date: 05/26/20 Status: Ordered pravastatin 40 mg oral tablet 1 tablet = 40 mg, By Mouth, Daily, # 30 tablet, 5 Refills, Maintenance, 07/26/20 10:27:00 EDT, Tablet, [id number], 152, cm, 07/26/20 10:00:00 EDT, Height, 67.27, kg, 01/26/19 8:44:00 EDT, DryWeight Start Date: 07/26/20 Status: Ordered Vitamin D3 1000 intl units oral capsule 1 capsule = 1,000 International_Units, By Mouth, Daily, # 90 capsule, 3 Refills, Maintenance, 05/25/20 10:43:00 EDT, Capsule, [id number], 152, cm, 03/16/20 15:37:00 EDT, Height, [...]
--- OUTSIDE RECORDS SUMMARY | 2024-02-27 23:29 | XMS_ITS | Continuity of Care Document ---
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 Start Date: 12/11/21 Status: Ordered Carafate 1 gm oral tablet 1 Gm, 1, tablet, By Mouth, 2 times a day, # 180 tablet, Refills 0, Tot. Refills 0, Maintenance, 09/24/22 16:52:00 EST, [id number] Partial fill upon patient request if the prescription is for a schedule II opi... Start Date: 09/24/22 Status: Ordered chlorthalidone 25 mg oral tablet 25 mg, 1, tablet, By Mouth, Daily, # 90 tablet, Refills 3, Tot. Refills 3, Maintenance, 08/13/22 12:20:00 EDT, Route to Pharmacy Electronically, [facility]/pharmacy #[id number], 152.4, cm, 08/10/22 15:55:00 EDT, Height, 75.6, kg, 05/14/22 7:15:00 EDT, Dry Weight Start Date: 08/13/22 Stop Date: 08/08/23 Status: Ordered cyclobenzaprine 10 mg oral tablet 1, tablet, By Mouth, 3 times a day, # 10 tablet, Refills 1, Maintenance, 08/27/22 7:59:00 EST, Route to Pharmacy Electronically, [facility] STORE [id number], 152.4, cm, 08/10/22 15:55:00 EDT, Height, 75.6, kg, 05/14/22 7:15:00 EDT, Dry Weight Start Date: 08/27/22 Status: Ordered Estrace 1 mg oral tablet [...] 3 Refills, Maintenance, 01/11/22 15:35:00 EDT, Tablet, [facility]/pharmacy #[id number], Partial fill upon patient request if the prescription is for a schedule II opioid drug., 152.4, cm, 01/11/22 15:23:00... Start Date: 01/11/22 Status: Ordered FLUoxetine 10 mg oral capsule 10 mg, 1, capsule, By Mouth, Daily, # 30 capsule, Refills 1, Tot. Refills 1, Maintenance, 01/09/23 9:29:00 EDT, Route to Pharmacy Electronically, [facility]/pharmacy #[id number], Partial fill upon patient requestif the prescription is for a schedule II opioid eva... Start Date: 01/09/23 Stop Date: 03/10/23 Status: Ordered levothyroxine 150 mcg (0.15 mg) oral tablet See Instructions, 1 tablet By Mouth 6 days weekly and 0.5 tabs on the 7th day., # 30 each, 11 Refills, Maintenance, 11/01/22 13:39:00 EST, [id number], Partial fill upon patient request if theprescription is for a schedule II opioid drug., 152... Start Date: 11/01/22 Status: Ordered losartan 50 mg oral tablet 50 mg, 1, tablet, By Mouth, Daily, # 90 tablet, Refills 3, Tot. Refills 3, Maintenance, 04/26/22 15:42:00 EDT, Route to Pharmacy Electronically, [facility]/pharmacy #[id number], 100 mg tab on backorder, 152.4, cm, 03/30/22 13:46:00 EDT, Height, 73.5, kg, 12/12/21... Start Date: 04/26/22 Stop Date: 04/21/23 Status: Ordered rosuvastatin 20 mg oral tablet 1 tablet, By Mouth, Daily, # 90 tablet, 3 Refills, Maintenance, 01/09/23 9:26:00 EDT, [facility]/pharmacy #[id number], 152.4, cm, 01/09/23 8:53:00 EDT, Height, 75.6, kg, 05/14/22 7:15:00 EDT, Dry Weight Start Date: 01/09/23 Status: Ordered Vitamin D3 1000 intl units oral capsule 1 capsule = 1,000 International_Units, By Mouth, Daily, # 90 capsule, 3 Refills, Maintenance, 01/09/23 9:26:00 EDT, Capsule, [facility]/pharmacy #[id number], 152.4, cm, 01/09/23 8:53:00 EDT, Height, [...] Care team information Care Team Personnel Name: Michelle LIN, Bailee Position: [facility] AM[facility] Nurse Member Role: Primary Care Nurse Name: Ijeoma Lim MD Position: [facility] Primary Care Physician Member Role: PCP Address: Address: [address] [place] [address] Adult [place] [address]- Care Team Related Persons Name: TAZ BATES Address: home [address] [place] [id number]
--- OUTSIDE RECORDS SUMMARY | 2024-02-27 23:29 | XMS_ITS | Continuity of Care Document ---
Author Organization [facility] ter Address [address] [place] [address]- Care Team Providers Care Regulatory Specialist Name Role Phone Ijeoma Lim MD Primary Care Physician [place] [facility] [place] Date(s): 04/25/23 - 06/16/[address] [address] Attending Physician: Jaky Mac MD Admitting Physician: Jaky Mac MD Referring Physician: Jaky Mac MD Allergies, Adverse Reactions, Alerts Substance Reaction Severity [...] Shiners 2Result Comment: Done at work Medications chlorthalidone 25 mg oral tablet 25 mg, 1, tablet, By Mouth, Daily, # 90 tablet, Refills 3, Tot. Refills 3, Maintenance, 08/13/22 12:20:00 EDT, Route to Pharmacy Electronically, [facility]/pharmacy #[id number], 152.4, cm, 08/10/22 15:55:00 EDT, [...] 15:35:00 EDT, Tablet, [facility]/pharmacy #[id number], Partial fill upon patient request if the prescription is for a schedule II opioid drug., 152.4, cm, 01/11/22 15:23:00... Start Date: 01/11/22 Status: Ordered FLUoxetine 10 mg oral capsule 10 mg, 1, capsule, By Mouth, Daily, # 90 capsule, Refills 1, Tot. Refills 1, Maintenance, 03/06/23 9:30:00 EDT, Route to Pharmacy Electronically, [facility]/pharmacy #[id number], Partial fill upon patient requestif [...] 05/06/23 10:17:00 EDT, Route to Pharmacy Electronically, [facility]/pharmacy #[id number], 100 mg tab on backorder, 152.4, cm, 05/06/23 9:42:00 EDT, Height, 75.6, kg, 05/14/22 7... Start Date: 05/06/23 Stop Date: 04/30/24 Status: Ordered montelukast 10 mg oral tablet 10 mg, 1, tablet, By Mouth, Daily, # 90 tablet, Refills 3, Tot. Refills 3, Maintenance, 05/06/23 10:17:00 EDT, Route to Pharmacy Electronically, [facility]/pharmacy #[id number], Partial fill upon patient request if the prescription is for a schedule II opioid drug... Start Date: 05/06/23 Stop Date: 04/30/24 Status: Ordered potassium chloride 20 mEq oral tablet, extended release 1 tablet = 20 mEq, By Mouth, Daily, # 30 tablet, 1 Refills, Maintenance, 05/11/23 22:39:00 EDT, ER Tablet, [id number], Partial fill upon patient [...] 3 Refills, Maintenance, 01/09/23 9:26:00 EDT, Capsule, [id number], 152.4, cm, 01/09/23 8:53:00 EDT, [...] Primary Care Member Role: PCP Address: Address: [address] [place] [address] Adult [place] [address]- Care Team Related Persons Name: TAZ BATES Address: home [address] [place] [address]
--- OUTSIDE RECORDS SUMMARY | 2024-02-27 23:29 | XMS_ITS | Continuity of Care Document ---
Author Organization [facility] Address [address] [place] [address]- Care Team Providers Care Tutoring Clinician Name Role Phone Ijeoma Lim MD Primary Care Physician [phone] [place] [facility] [place]s): 07/12/21 - 07/19/21 [facility] [address] [place], [place] [address] Attending Physician: Ijeoma Lim MD Allergies, Adverse Reactions, Alerts Substance Reaction [...] 6 hours, PRN, # 8.5 Gm, Refills 1, Tot. Refills 1, Maintenance, 07/12/21 15:00:00 EDT, Inhaler, Route to Pharmacy Electronically, [id number], [facility]/pharmacy #[id number], 152.4, cm, 07/12/21 14:27:00 EDT, H... Start Date: 07/12/21 Status: Ordered Teodora 0.1 mg/24 hours twice weekly transdermal film, extended release See Instructions, 0.1 mg estradiol patch transdermal, reapply every 72 hours, # 2 patch, 0 Refills,Maintenance, 01/28/21 17:24:00 EDT, [facility]/pharmacy #[id number], Partial fill upon patient request if the prescription is for a schedule II opioid drug., 152.4,... Start Date: 01/28/21 Status: Ordered chlorthalidone 25 mg oral tablet 25 mg, 1, tablet, By Mouth, Daily, # 90 tablet, Refills 3, Tot. Refills 3, Maintenance, 07/12/21 15:00:00 EDT, Route to Pharmacy Electronically, [facility]/pharmacy #[id number], 152.4, cm, 07/12/21 14:27:00 EDT, Height, 75.9, kg, 05/12/21 16:11:00 EDT, Dry Weight Start Date: 07/12/21 Stop Date: 07/07/22 Status: Ordered levothyroxine 125 mcg (0.125 mg) oral tablet 1 tablet = 125 mcg, By Mouth, Daily, # 30 tablet, 11 Refills, Maintenance, 06/05/21 8:04:00 EDT, Tablet, [facility]/pharmacy #[id number], Partial fill upon patient request if the prescription is for a schedule IIopioid drug., 152.4, cm, 06/05/21 7:52:00 EDT, [place]... Start Date: 06/05/21 Stop Date: 05/31/22 Status: Ordered losartan 50 mg oral tablet 50 mg, 1, tablet, By Mouth, Daily, # 90 tablet, Refills 3, Tot. Refills 3, Maintenance, 07/12/21 15:00:00 EDT, Route to Pharmacy Electronically, [facility]/pharmacy #[id number], 100 mg tab on backorder, 152.4, cm, 07/12/21 14:27:00 EDT, Height, 75.9, kg, 05/12/21... Start Date: 07/12/21 Stop Date: 07/07/22 Status: Ordered omeprazole 20 mg oral enteric coated capsule 1 capsule = 20 mg, By Mouth, Daily, # 90 capsule, 3 Refills, Maintenance, 07/12/21 15:00:00 EDT, ECCapsule, [facility]/pharmacy #[id number], 152.4, cm, 07/12/21 14:27:00 EDT, Height, 75.9, kg, 05/12/21 16:11:00 EDT, Dry Weight Start Date: 07/12/21 Status: Ordered pravastatin 40 mg oral tablet 1 tablet = 40 mg, By Mouth, Daily, # 30 tablet, 5 Refills, Maintenance, 07/26/20 10:27:00 EDT, Tablet, [facility]/pharmacy #[id number], 152, cm, 07/26/20 10:00:00 EDT, Height, 67.27, kg, 01/26/19 8:44:00 EDT, DryWeight Start Date: 07/26/20 Status: Ordered simethicone 80 mg oral tablet, chewable 80 mg, Chew, 5 times a day, PRN, For Gaseous Distention/Discomfort, # 90 tablet, Refills 0, Tot. Refills 0, Maintenance, Other, 05/12/21 16:35:00 EDT, Route to Pharmacy Electronically, [facility]/pharmacy #[id number], Partial fill upon patient request if the presc... Start Date: 05/12/21 Status: Ordered Vitamin D3 1000 intl units oral capsule 1 capsule = 1,000 International_Units, By Mouth, Daily, # 90 capsule, 3 Refills, Maintenance, 07/12/21 15:00:00 EDT, Capsule, [facility]/pharmacy #[id number], 152.4, cm, 07/12/21 14:27:00 EDT, Height, [...] 11/12/2018(Confirmed) Active PVCs (premature ventricular contractions)(Confirmed) Active Procedures Procedure Date Related Diagnosis Body Site Status Supracervical hysterectomy w ith removal of both tubes and ovaries 01/27/21 Comple greg Colonoscopy + EGD 11/26/19 Complet ed Vital Signs Most recent to oldest [Reference Range]: 1 Height 152.40 cm (07/12/21 2:27 PM) Weight 75.6 kg (07/12/21 2:27 PM) Oxygen Saturation [94-100 %] 99 % (07/12/21 2:27 PM) Pulse Rate [55-90 bpm] 85 bpm (07/12/21 2:27 PM) Body Mass Index [18.5-24.99] 32.55 *>HHI* (07/12/21 2:27 PM) Blood Pressure [90-138/55-84 mm Hg] 148/ 82mm Hg *H* (07/12/21 2:27 PM) Temperature [96.8-100.4 DegF] 98.1 DegF (07/12/21 2:27 PM) Blood pressure sites Arm, left (07/12/21 2:27 PM) Temperature Route Temporal (07/12/21 2:27 PM) Weight Obtained Via Standing scale (07/12/21 2:27 PM) Social History Social History Type Response Smoking Status Never smoker; Tobacc o user in household: No entered on: 10/01/17 Sex
--- OUTSIDE RECORDS SUMMARY | 2024-02-27 23:29 | XMS_ITS | Continuity of Care Document ---
Author Organization [facility] Address [address] [place] [address] [address] [place] [address]- Care Team Providers Care Liability Analyst Name Role Phone Ijeoma Lim MD Primary Care Physician Encounter [facility] Date(s): 05/18/22 - 06/17/[address] [place], [place] [address] Attending Physician: Admtr, Ho8 Admitting Physician: Admtr, Ar8 Referring Physician: Admtr, Ar8 Allergies, Adverse Reactions, Alerts Substance Reaction Severity [...] Shiners 2Result Comment: Done at work Medications aspirin [...] 3 Refills, Maintenance, 01/11/22 15:35:00 EDT, Tablet, [facility]/pharmacy #[id number], Partial fill upon patient request if [...] 04/26/22 15:42:00 EDT, Route to Pharmacy Electronically, [facility]/pharmacy #[id number], 100 mg tab on backorder, 152.4, [...] on: 10/01/17 Sex Care Team Personnel Name: Raphael WILDER, Ijeoma Toth Address: [address] [place] [address] Adult & Pediatric [address]
--- OUTSIDE RECORDS SUMMARY | 2024-02-27 23:29 | XMS_ITS | Continuity of Care Document ---
Author Organization [facility] Address [address] [place] [address] [address] [place] [address]- Care Team Providers Care Warehouse Record Clerk Name Role Phone Ijeoma Lim MD Primary Care Physician [place] [facility] [place]04/[place] - 06/17/[address] [place] [address]- Attending Physician: Pritesh Montes MD Referring Physician: Ijeoma Lim MD Allergies, Adverse Reactions, [...] acel(Tdap) 12/27/17 Given 1Result Comment: Done at [employer] 2Result Comment: Done at work Medications aspirin [...] 3 Refills, Maintenance, 01/11/22 15:35:00 EDT, Tablet, [facility]/pharmacy #[id number], Partial fill upon patient request [...] 04/26/22 15:42:00 EDT, Route to Pharmacy Electronically, [facility]/pharmacy #[id number], 100 mg tab on backorder, [...] Personnel Name: Raphael WILDER, Ijeoma Toth Address: [address] [place] [address] Adult & Pediatric [address]
--- OUTSIDE RECORDS SUMMARY | 2024-02-27 23:29 | XMS_ITS | Continuity of Care Document ---
Author Organization [facility] Address [address] [place] [id number]- Care Team Providers Care Surgical Services Asst Name Role Phone Ijeoma Lim MD Primary Care Physician [phone] Encounter [facility] [place] Date(s): 10/09/23 - 11/08/23 [facility] [address] [place] [address] Allergies, Adverse Reactions, Alerts Substance Reaction Severity [...] acel(Tdap) 12/27/17 Given 1Result Comment: Done at [email or web address] 2Result Comment: Done at work Medications barium sulfate 2% oral suspension See Instructions, dispense 2 bottles 1st bottle 6 hrs before & 2nd bottle [address], # 2each, 0 Refills, Maintenance, 09/13/23 9:28:00 EST, [facility]/pharmacy #[id number], Partial fill upon patient request if the prescription is for a schedule II opioid... Start Date: 09/13/23 Status: Ordered chlorthalidone 25 mg oral tablet 1, tablet, By Mouth, Daily, # 90 tablet, Refills 1, Maintenance, 08/20/23 0:15:00 EDT, Route to Pharmacy Electronically, [id number], 152, cm, 08/01/23 10:56:00 EDT, Height, 76.8, kg, 05/16/23 10:20:00 EDT, Dry Weight Start Date: 08/20/23 Status: Ordered docusate sodium 100 mg oral capsule 100 mg, 1, capsule, By Mouth, 2 times a day, # 60 capsule, Refills 1, Tot. Refills 1, Maintenance, 09/13/23 9:07:00 EST, Route to Pharmacy Electronically, [facility]/pharmacy #[id number], Partial fill upon patient request if the prescription is for a schedule II o... Start Date: 09/13/23 Stop Date: 11/12/23 Status: Ordered Estrace 1 mg oral tablet 1 mg, 1, tablet, By Mouth, Daily, Refills 0, Maintenance, 12/11/21 12:26:00 EST, Partial fill upon patient request if the prescription is for a schedule II opioid drug. Start Date: 12/11/21 Status: Ordered FLUoxetine 10 mg oral capsule 1, capsule, By Mouth, Daily, # 90 capsule, Refills 1, Maintenance, 08/24/23 9:01:00 EDT, Route to Pharmacy Electronically, [id number], 152, cm, 08/01/23 10:56:00 EDT, Height, 76.8, kg, 05/16/23 10:20:00 EDT, Dry Weight Start Date: 08/24/23 Status: Ordered fluticasone 50 mcg/inh nasal spray 1 sprays, Nares, Both, 2 times a day, # 16 Gm, 0 Refills, Maintenance, 08/01/23 11:21:00 EDT, [place], [facility]/pharmacy #[id number], Partial fill upon patient request if the prescription is for a schedule II opioid drug., 1 sprays Nares, Both 2 times a day, 152,... Start Date: 08/01/23 Status: Ordered levothyroxine 0.137 mg oral tablet 1 tablet = 137 mcg, By Mouth, Daily, # 60 tablet, 6 Refills, Maintenance, 09/16/23 19:32:00 EST, Tablet, [facility]/pharmacy #[id number], Partial fill upon patient request if the prescription is for a schedule IIopioid drug., 152, cm, 09/13/23 8:42:00 EST, Height... Start Date: 09/16/23 Stop Date: 11/09/24 Status: Ordered losartan 50 mg oral tablet 50 mg, 1, tablet, By Mouth, Daily, # 90 tablet, Refills 3, Tot. Refills 3, Maintenance, 05/06/23 10:17:00 EDT, Route to Pharmacy Electronically, [facility]/pharmacy #[id number], 100 mg tab on backorder, 152.4, cm, 05/06/23 9:42:00 EDT, Height, 75.6, kg, 05/14/22 7... Start Date: 05/06/23 Stop Date: 04/30/24 Status: Ordered montelukast 10 mg oral tablet 10 mg, 1, tablet, By Mouth, Daily, # 90 tablet, Refills 3, Tot. Refills 3, Maintenance, 05/06/23 10:17:00 EDT, Route to Pharmacy Electronically, [facility]/pharmacy #[id number], Partial fill upon patient request if the prescription is for a schedule II opioid drug... Start Date: 05/06/23 Stop Date: 04/30/24 Status: Ordered omeprazole 40 mg oral enteric coated capsule 1 capsule = 40 mg, By Mouth, Daily, # 90 capsule, 3 Refills, Maintenance, 10/09/23 16:07:00 EST, ECCapsule, [facility]/pharmacy #[id number], Partial fill upon patient request if the prescription is for a schedule II opioid drug., 152, cm, 10/09/23 15:44:00 EST, H... Start Date: 10/09/23 Stop Date: 10/03/24 Status: Ordered rosuvastatin 20 mg oral tablet 1 tablet, By Mouth, Daily, # 90 tablet, 3 Refills, Maintenance, 01/09/23 9:26:00 EDT, [id number], 152.4, cm, 01/09/23 8:53:00 EDT, Height, 75.6, kg, 05/14/22 7:15:00 EDT, Dry Weight Start Date: 01/09/23 Status: Ordered Suprep Bowel Prep Kit oral liquid 177 mL, By Mouth, Once, Take one 6 oz bottle the evening before, and the second 6 oz bottle the morning of colonoscopy. Each 6 oz bottle should be mixed with 10 oz water, and after drinking this 16 oz, drink 32 oz more water over the next hour., # 354... Start Date: 10/09/23 Status: Ordered Vitamin D3 1000 intl units [...] Active GERD (gastroesophageal reflux disease) Confirmed Active Hyperlipidemia Confirmed Active Hypertension Confirmed Active Hypothyroidism Confirmed [...] Care team information Care Team Personnel Name: Ijeoma Lim MD Position: S Physician - Primary Care Member Role: PCP Address: Address: [address] [place] [address] Adult [place] [address]- Care Team Related Persons Name: TAZ BAETS Address: [address] [place] [address]
--- OUTSIDE RECORDS SUMMARY | 2024-02-27 23:29 | XMS_ITS | Continuity of Care Document ---
Author Organization [facility] Address [address] [place] [address]- Care Team Providers Care Campaign Associate Name Role Phone Raphael WILDER, Ijeoma Toth Primary Care Physician [phone] Encounter [facility] Date(s): 12/20/20 - 01/19/21 [facility] [address] [place], [place] [address] Allergies, Adverse Reactions, Alerts Substance Reaction Severity Status penicillin ITCHY Active Latex RASH, ÁLVAREZ AND ITCHES Activ e Immunizations Given and Recorded Vaccine Date Status Refusal Reason Influenza Virus Vaccine (oldterm) 1 07/21/20 Recor ded Influenza Virus Vaccine (oldterm) 08/27/19 Recorde d pneumococcal 23-valent vaccine 02/17/19 Given influenza virus vaccine, inactivated 12/27/17 Give n tetanus/diphtheria/pertussis, acel(Tdap) 12/27/17 Given 1Result Comment: Done at work Medications albuterol CFC free 90 mcg/inh inhalation aerosol 2, puffs, Inhalation, Every 6 hours, PRN, # 8.5 Gm, Refills 0, Tot. Refills 0, Maintenance, 02/12/20 13:54:00 EDT, Inhaler, Route to Pharmacy Electronically, [id number], [facility]/pharmacy #[id number], 152, cm, 01/18/20 9:51:00 EDT, Heig... Start Date: 02/12/20 Status: Ordered chlorthalidone 25 mg oral tablet 25 mg, 1, tablet, By Mouth, Daily, # 90 tablet, Refills 3, Tot. Refills 3, Maintenance, 07/07/20 14:00:00 EDT, Route to Pharmacy Electronically, [facility]/pharmacy #[id number], 152, cm, 03/16/20 15:37:00 [...] tablet, 1 Refills, Maintenance, 12/20/20 13:28:00 EST, [facility]/pharmacy #[id number], labs needed, 152, cm, 09/14/20 10:51:00 EST, Height, 67.27, kg, 01/26/19 8:44:00 EDT, Dry Weight Start Date: 12/20/20 Status: Ordered losartan 50 mg oral tablet 50 mg, 1, tablet, By Mouth, Daily, # 90 tablet, Refills 3, Tot. Refills 3, Maintenance, 01/21/20 9:57:00 EDT, [id number] mg tab on backorder, 152, cm, 01/18/20 9:51:00 EDT, Height, 67.27, kg, 01/26/19 8:4... Start Date: 01/21/20 Stop Date: 01/15/21 Status: Ordered omeprazole 20 mg oral enteric coated capsule 1 capsule = 20 mg, By Mouth, Daily, # 90 capsule, 3 Refills, Maintenance, 05/26/20 15:26:00 EDT, ECCapsule, [facility]/pharmacy #[id number], 152, cm, 03/16/20 15:37:00 [...]
--- OUTSIDE RECORDS SUMMARY | 2024-02-27 23:29 | XMS_ITS | Continuity of Care Document ---
Author Organization [facility] Address [address] [place] [address]- Care Team Providers Care Ebd Teacher Name Role Phone Raphael WILDER, Ijeoma Toth Primary Care Physician Encounter [facility] Date(s): 08/10/22 - 09/09/22 [facility] [address] [place], [place] [address] Allergies, Adverse Reactions, Alerts Substance [...] acel(Tdap) 12/27/17 Given 1Result Comment: Done at [employer] 2Result Comment: Done at work Medications aspirin [...] 08/13/22 12:20:00 EDT, Route to Pharmacy Electronically, [facility]/pharmacy #[id number], 152.4, cm, 08/10/22 15:55:00 EDT, Height, 75.6, kg, 05/14/22 7:15:00 EDT, Dry Weight Start Date: 08/13/22 Stop Date: 08/08/23 Status: Ordered cyclobenzaprine 10 mg oral tablet 1, tablet, By Mouth, 3 times a day, # 10 tablet, Refills 1, Maintenance, 08/27/22 7:59:00 EST, Route to Pharmacy Electronically, [id number], 152.4, cm, 08/10/22 15:55:00 EDT, Height, 75.6, [...] 3 Refills, Maintenance, 01/11/22 15:35:00 EDT, Tablet, [facility]/pharmacy #[id number], Partial fill upon patient request if the prescription is for a schedule II opioid drug., 152.4, cm, 01/11/22 15:23:00... Start Date: 01/11/22 Status: Ordered levothyroxine 0.137 mg oral tablet See Instructions, 1 tablet By Mouth 6 days per week and 1/2 pill on day 7, # 90 each, 3 Refills, Maintenance, 07/20/22 8:57:00 EDT, Tablet, [facility]/pharmacy #[id number], Partial fill upon patient request if the prescription is for a schedule II opioid drug., 15... Start Date: 07/20/22 Status: Ordered losartan 50 mg oral tablet 50 mg, 1, tablet, By Mouth, Daily, # 90 tablet, Refills 3, Tot. Refills 3, Maintenance, 04/26/22 15:42:00 EDT, Route to Pharmacy Electronically, [facility]/pharmacy #[id number], 100 mg tab on backorder, 152.4, cm, 03/30/22 13:46:00 EDT, Height, 73.5, kg, 12/12/21... Start Date: 04/26/22 Stop Date: 04/21/23 Status: Ordered rosuvastatin 20 mg oral tablet 1 tablet, By Mouth, Daily, # 90 tablet, 1 Refills, Maintenance, 07/18/22 17:23:00 EDT, [facility]/pharmacy#[id number], 152.4, cm, 06/28/22 16:41:00 EDT, Height, 75.6, kg, 05/14/22 7:15:00 EDT, Dry Weight Start Date: 07/18/22 Status: Ordered Vitamin D3 1000 intl units oral capsule 1 capsule = 1,000 International_Units, By Mouth, Daily, # 90 capsule, 1 Refills, Maintenance, 07/17/22 19:46:00 EDT, Capsule, [facility]/pharmacy #[id number], 152.4, cm, 06/28/22 16:41:00 EDT, Height, 75.6, kg, 05/14/22 7:15:00 EDT, Dry Weight Start Date: 07/17/22 Stop Date: 01/13/23 Status: Ordered Problem List Condition Confirmation Course [...] Care team information Care Team Personnel Name: Bailee Martinez RN Position: [facility] AMB Nurse Member Role: Primary Care Nurse Name: Ijeoma Lim MD Position: [facility] Primary Care Physician Member Role: PCP Address: Address: [address] [place] [address] Adult & Pediatric [address] Care Team Related Persons Name: TAZ BATES Address: [address] [place] [address]
--- OUTSIDE RECORDS SUMMARY | 2024-02-27 23:29 | XMS_ITS | Continuity of Care Document ---
Author Organization [facility] Address [address] [place] [address]- Care Team Providers Care Pharmacovigilance Scientist Name Role Phone Ijeoma Lim MD Primary Care Physician [phone] Encounter [facility] [place](s[place] 05/12/21 - 05/19/21 [facility] [address] [place], [place] [address] Attending Physician: Ijeoma Lim MD Allergies, Adverse [...] 13:54:00 EDT, Inhaler, Route to Pharmacy Electronically, [id number], [id number], 152, cm, 01/18/20 9:51:00 EDT, [place] Start Date: 02/12/20 Status: Ordered Teodora 0.1 mg/24 hours twice weekly transdermal film, extended release See Instructions, 0.1 mg estradiol patch transdermal, reapply every 72 hours, # 2 patch, 0 Refills,Maintenance, 01/28/21 17:24:00 EDT, [facility]/pharmacy #[id number], Partial fill upon patient request if the prescription is for a schedule II opioid drug., 152.4,... Start Date: 01/28/21 Status: Ordered chlorthalidone 25 mg oral tablet 25 mg, 1, tablet, By Mouth, Daily, # 90 tablet, Refills 3, Tot. Refills 3, Maintenance, 07/07/20 14:00:00 EDT, Route to Pharmacy Electronically, [facility]/pharmacy #[id number], 152, cm, 03/16/20 15:37:00 EDT, [...] tablet, 1 Refills, Maintenance, 12/20/20 13:28:00 EST, [facility]/pharmacy #[id number], labs needed, 152, cm, 09/14/20 10:51:00 EST, Height, 67.27, kg, 01/26/19 8:44:00 EDT, Dry Weight Start Date: 12/20/20 Status: Ordered losartan 50 mg oral tablet 50 mg, 1, tablet, By Mouth, Daily, # 90 tablet, Refills 1, Tot. Refills 1, Maintenance, 01/26/21 14:32:00 EDT, Route to Pharmacy Electronically, [facility]/pharmacy #[id number], 100 mg tab on backorder, 152.4, cm, 01/20/21 12:01:00 EDT, Height, 73.64, kg, 01/20/21... Start Date: 01/26/21 Stop Date: 07/25/21 Status: Ordered meclizine 12.5 mg oral tablet 1 tablet = 12.5 mg, By Mouth, 3 times a day, PRN for dizziness, # 30 tablet, 0 Refills, Acute 05/26/21 16:38:00 EDT, 05/12/21 16:37:00 EDT, Tablet, [facility]/pharmacy #[id number], Partial fill upon patient request if the prescription is for a schedule II opioid d... Start Date: 05/12/21 Stop Date: 05/26/21 Status: Ordered omeprazole 20 mg oral enteric coated capsule 1 capsule = 20 mg, By Mouth, Daily, # 90 capsule, 3 Refills, Maintenance, 05/26/20 15:26:00 EDT, ECCapsule, [facility]/pharmacy #[id number], 152, cm, 03/16/20 15:37:00 EDT, Height, 67.27, kg, 01/26/19 8:44:00 EDT, Dry Weight Start Date: 05/26/20 Status: Ordered pravastatin 40 mg oral tablet 1 tablet = 40 mg, By Mouth, Daily, # 30 tablet, 5 Refills, Maintenance, 07/26/20 10:27:00 EDT, Tablet, [facility]/pharmacy #[id number], 152, cm, 07/26/20 10:00:00 EDT, Height, 67.27, kg, 01/26/19 8:44:00 EDT, DryWeight Start Date: 07/26/20 Status: Ordered simethicone 80 mg oral tablet, chewable 80 mg, Chew, 5 times a day, PRN, For Gaseous Distention/Discomfort, # 90 tablet, Refills 0, Tot. Refills 0, Maintenance, Other, 05/12/21 16:35:00 EDT, Route to Pharmacy Electronically, [facility]/pharmacy #[id number], Partial fill upon patient request if the presc... Start Date: 05/12/21 Status: Ordered VITAMIN D3 1,000 UNIT SOFTGEL VITAMIN D3 1,000 UNIT SOFTGEL, 1, capsule, By Mouth, Daily, # 90 capsule, 1 Refills, Maintenance, 05/16/21 7:13:00 EDT, 152.4, cm, 05/12/21 16:11:00 EDT, Height, 75.9, kg, 05/12/21 16:11:00 EDT, Dry Weight Start Date: 05/16/21 Status: Ordered Vitamin D3 1000 intl units [...] 11/12/2018(Confirmed) Active PVCs (premature ventricular contractions)(Confirmed) Active Vital Signs Most recent to oldest [Reference Range]: 1 Height 152.40 cm (05/12/21 4:11 PM) Weight 75.9 kg (05/12/21 4:11 PM) Oxygen Saturation [94-100 %] 96 % (05/12/21 4:11 PM) Pulse Rate [55-90 bpm] 77 bpm (05/12/21 4:11 PM) Body Mass Index [18.5-24.99] 32.68 *>HHI* (05/12/21 4:11 PM) Blood Pressure [90-138/55-84 mm Hg] 150/ 88mm Hg *H* (05/12/21 4:11 PM) Temperature [96.8-100.4 DegF] 98.2 DegF (05/12/21 4:11 PM) Mode of Delivery (Oxygen) Room air (05/12/21 4:11 PM) Blood pressure sites Arm, left (05/12/21 4:11 PM) Temperature Route Temporal (05/12/21 4:11 PM) Dry Weight 75.9 kg (05/12/21 4:11 PM) Weight Obtained Via Standing scale (05/12/21 4:11 PM) Social History Social History Type Response Smoking Status Never smoker; Tobacc o user in household: No entered on: 10/01/17 Sex
--- OUTSIDE RECORDS SUMMARY | 2024-02-27 23:29 | XMS_ITS | Continuity of Care Document ---
Author Organization [facility] Address [address] [place] [address]- Care Team Providers Care Director Custom Name Role Phone Ijeoma Lim MD Primary Care Physician Encounter [facility] [place] Date(s): 01/06/22 - 02/05/22 [facility] [address] [place], [place] [address] Allergies, Adverse Reactions, Alerts Substance Reaction [...] 14:40:00 EST, Route to Pharmacy Electronically, [facility], 152.4, cm, 07/12/21 14:27:00 EDT, [...] Maintenance, 01/11/22 15:35:00 EDT, Tablet, [facility]/pharmacy #[id number], Partial fill upon patient request if the prescription is for a schedule II opioid drug., 152.4, cm, 01/11/22 15:23:00... Start Date: 01/11/22 Status: Ordered levothyroxine 125 mcg (0.125 mg) oral tablet 1 tablet = 125 mcg, By Mouth, Daily, # 90 tablet, 2 Refills, Maintenance, 11/01/21 22:00:00 EST, Tablet, [facility], Partial fill upon patient request if the prescription is for a schedule II opioid drug., 152.4, cm, 07/12/21 14:27:... Start Date: 11/01/21 Stop Date: 10/27/22 Status: Ordered losartan 50 mg oral tablet 50 mg, 1, tablet, By Mouth, Daily, # 90 tablet, Refills 3, Tot. Refills 3, Maintenance, 10/24/21 14:39:00 EST, Route to Pharmacy Electronically, [facility], 100 mg tab on backorder, 152.4, cm, 07/12/21 14:27:00 EDT, Height, 75.9, kg... Start Date: 10/24/21 Stop Date: 10/19/22 Status: Ordered omeprazole 20 mg oral enteric coated capsule 1 capsule = 20 mg, By Mouth, Daily, # 90 capsule, 3 Refills, Maintenance, 10/24/21 14:41:00 EST, ECCapsule, [facility], 152.4, cm, 07/12/21 14:27:00 EDT, Height, 75.9, kg, 05/12/21 16:11:00 EDT, Dry Weight Start Date: 10/24/21 Status: Ordered oxyCODONE 5 mg oral tablet 5 mg, 1, tablet, By Mouth, Every 6 hours, PRN, take with food; may cause constipation. Do not drivewhile taking this medication., Refills 0, Tot. Refills 0, Maintenance, as needed for pain, 12/12/2209:07:00 EST, Partial fill upon patient request if... Start Date: 12/12/21 Status: Ordered pravastatin 40 mg oral tablet 1 tablet = 40 mg, By Mouth, Daily, # 30 tablet, 5 Refills, Maintenance, 07/26/20 10:27:00 EDT, Tablet, [id number], 152, cm, 07/26/20 10:00:00 EDT, Height, 67.27, kg, 01/26/19 8:44:00 EDT, DryWeight Start Date: 07/26/20 Status: Ordered Splint See Instructions, # 1 each, Maintenance, Carpal tunnel splint for right hand dx- CTS duration -99 use as needed, 11/15/21 10:00:00 EST, Supply Start Date: 11/15/21 Status: Ordered Vitamin D3 1000 intl units [...]
--- OUTSIDE RECORDS SUMMARY | 2024-02-27 23:29 | XMS_ITS | Continuity of Care Document ---
Author Organization [facility] Address [address] [place] [address]- Care Team Providers Care Gambreler Helper Name Role Phone Ijeoma Lim MD Primary Care Physician [place] [facility] [place] 11/06/22 - 03/06/23 [facility] [address] [place] [address]- Attending Physician: Gerard Valdez MD Admitting Physician: Gerard Valdez MD Referring Physician: Ijeoma Lim MD Allergies, [...] acel(Tdap) 12/27/17 Given 1Result Comment: Done at [employer] 2Result Comment: Done at work Medications [...] 09/24/22 16:52:00 EST, [id number] Partial fill upon patient request if the prescription is for a schedule II opi... Start Date: 09/24/22 Status: Ordered chlorthalidone 25 mg oral tablet 25 mg, 1, tablet, By Mouth, Daily, # 90 tablet, Refills 3, Tot. Refills 3, Maintenance, 08/13/22 12:20:00 EDT, Route to Pharmacy Electronically, [facility]/pharmacy #[id number], 152.4, cm, 08/10/22 15:55:00 EDT, Height, 75.6, kg, 05/14/22 7:15:00 EDT, Dry Weight Start Date: 08/13/22 Stop Date: 08/08/23 Status: Ordered cyclobenzaprine 10 mg oral tablet 1, tablet, By Mouth, 3 times a day, # 10 tablet, Refills 1, Maintenance, 08/27/22 7:59:00 EST, Route to Pharmacy Electronically, [id number], 152.4, cm, 08/10/22 15:55:00 EDT, Height, 75.6, [...] 3 Refills, Maintenance, 01/11/22 15:35:00 EDT, Tablet, [facility]/pharmacy #[id number], Partial fill upon patient request if the prescription is for a schedule II opioid drug., 152.4, cm, 01/11/22 15:23:00... Start Date: 01/11/22 Status: Ordered FLUoxetine 10 mg oral capsule 10 mg, 1, capsule, By Mouth, Daily, # 90 capsule, Refills 1, Tot. Refills 1, Maintenance, 03/06/23 9:30:00 EDT, Route to [facility] Electronically, [id number], Partial fill upon patient requestif the [...] 04/26/22 15:42:00 EDT, Route to Pharmacy Electronically, [id number], 100 mg tab on backorder, 152.4, cm, 03/30/22 13:46:00 EDT, Height, 73.5, kg, 12/12/21... Start Date: 04/26/22 Stop Date: 04/21/23 Status: Ordered montelukast 10 mg oral tablet 10 mg, 1, tablet, By Mouth, Daily, # 30 tablet, Refills 1, Tot. Refills 1, Maintenance, 03/06/23 9:29:00 EDT, Route to Pharmacy Electronically, [facility]/pharmacy #[id number], Partial fill upon patient request if the prescription is for a schedule II opioid drug.... Start Date: 03/06/23 Stop Date: 05/05/23 Status: Ordered predniSONE 10 mg oral tablet See Instructions, 4 tab x2 days, 3 tab x 2 days, 2 tab x 2 days, 1tab x 2 days, # 20 tablet, 0 Refills, Acute 03/15/23 9:29:00 EDT, 03/06/23 9:28:00 EDT, [id number], Partial fill upon patientrequest if the prescription is for a schedule II op... Start Date: 03/06/23 Stop Date: 03/15/23 Status: Ordered rosuvastatin 20 mg oral tablet [...] Team Personnel Name: Bailee Martinez RN Position: [facility] Nurse Member Role: Primary Care Nurse Name: Ijeoma Lim MD Position: [facility] Primary Care Physician Member Role: PCP Address: Address: [address] [place] [address] Adult [place] [address]- Care Team Related Persons Name: TAZ BATES Address: home [address] [place] [address]
--- OUTSIDE RECORDS SUMMARY | 2024-02-27 23:29 | XMS_ITS | Continuity of Care Document ---
Author Organization [facility] Address [address] [place] [address]- Care Team Providers Care Plasterer Rough Name Role Phone Raphael WILDER, Ijeoma Toth Primary Care Physician Encounter [facility] Date(s): 10/03/23 - 11/02/23 [facility] [address] [place], [place] [address] Allergies, Adverse Reactions, Alerts Substance Reaction [...] acel(Tdap) 12/27/17 Given 1Result Comment: Done at [employer] 2Result Comment: Done at work Medications barium sulfate 2% oral suspension See Instructions, dispense 2 bottles 1st bottle 6 hrs before & 2nd bottle [address], # 2each, 0 Refills, Maintenance, 09/13/23 9:28:00 EST, [facility]/pharmacy #[id number], Partial fill upon patient request if the prescription is for a schedule II opioid... Start Date: 09/13/23 Status: Ordered chlorthalidone 25 mg oral tablet 1, tablet, By Mouth, Daily, # 90 tablet, Refills 1, Maintenance, 08/20/23 0:15:00 EDT, Route to [facility]acy Electronically, [facility], 152, cm, 08/01/23 10:56:00 EDT, Height, 76.8, kg, 05/16/23 10:20:00 EDT, Dry Weight Start Date: 08/20/23 Status: Ordered docusate sodium 100 mg oral capsule 100 mg, 1, capsule, By Mouth, 2 times a day, # 60 capsule, Refills 1, Tot. Refills 1, Maintenance, 09/13/23 9:07:00 EST, Route to Pharmacy Electronically, [facility]/pharmacy #[id number], Partial fill upon patient request [...] 08/24/23 9:01:00 EDT, Route to [facility]acy Electronically, [id number], 152, cm, 08/01/23 10:56:00 EDT, Height, 76.8, kg, 05/16/23 10:20:00 EDT, Dry Weight Start Date: 08/24/23 Status: Ordered fluticasone 50 mcg/inh nasal spray 1 sprays, Nares, Both, 2 times a day, # 16 Gm, 0 Refills, Maintenance, 08/01/23 11:21:00 EDT, [place], [facility]/pharmacy #[id number], Partial fill upon patient request if the prescription is for a schedule II opioid drug., 1 sprays Nares, Both 2 times a day, 152,... Start Date: 08/01/23 Status: Ordered levothyroxine 0.137 mg oral tablet 1 tablet = 137 mcg, By Mouth, Daily, # 60 tablet, 6 Refills, Maintenance, 09/16/23 19:32:00 EST, Tablet, [id number], Partial fill upon patient request if the prescription is for a schedule IIopioid drug., 152, cm, 09/13/23 8:42:00 EST, Height... Start Date: 09/16/23 Stop Date: 11/09/24 Status: Ordered losartan 50 mg oral tablet 50 mg, 1, tablet, By Mouth, Daily, # 90 tablet, Refills 3, Tot. Refills 3, Maintenance, 05/06/23 10:17:00 EDT, Route to [facility]ically, [id number], 100 mg tab on backorder, 152.4, cm, 05/06/23 9:42:00 EDT, Height, 75.6, kg, 05/14/22 7... Start Date: 05/06/23 Stop Date: 04/30/24 Status: Ordered montelukast 10 mg oral tablet 10 mg, 1, tablet, By Mouth, Daily, # 90 tablet, Refills 3, Tot. Refills 3, Maintenance, 05/06/23 10:17:00 EDT, Route to Pharmacy Electronically, [facility]/pharmacy #[id number], Partial fill upon patient request if the prescription is for a schedule II opioid drug... Start Date: 05/06/23 Stop Date: 04/30/24 Status: Ordered omeprazole 40 mg oral enteric coated capsule 1 capsule = 40 mg, By Mouth, Daily, # 90 capsule, 3 Refills, Maintenance, 10/09/23 16:07:00 EST, ECCapsule, [facility]/pharmacy #[id number], Partial fill upon patient request [...] Care Member Role: PCP Address: Address: [address] [place] [address] Adult & [place] [address]- Care Team Related Persons Name: TAZ BATES Address: home [address] [place] [address]
--- OUTSIDE RECORDS SUMMARY | 2024-02-27 23:29 | XMS_ITS | Continuity of Care Document ---
Author Organization [facility] Address [address] [place] [address]- Care Team Providers Care Desk Editor Name Role Phone Ijeoma Lim MD Primary Care Physician Encounter [facility] [place] Date(s): 07/12/22 - 08/11/22 [facility] [address] [place], [place] [address] [[email or web address]] Allergies, Adverse Reactions, Alerts Substance Reaction Severity [...] acel(Tdap) 12/27/17 Given 1Result Comment: Done at [employer] 2Result Comment: Done at work Medications aspirin [...] 3 Refills, Maintenance, 01/11/22 15:35:00 EDT, Tablet, [facility]/pharmacy #[id number], Partial fill upon patient request if the prescription is for a schedule II opioid drug., 152.4, cm, 01/11/22 15:23:00... Start Date: 01/11/22 Status: Ordered levothyroxine 0.137 mg oral tablet See Instructions, 1 tablet By Mouth 6 days per week and 1/2 pill on day 7, # 90 each, 3 Refills, Maintenance, 07/20/22 8:57:00 EDT, Tablet, [facility]/pharmacy #[id number], Partial fill upon patient request if the prescription is for a schedule II opioid drug., 15... Start Date: 07/20/22 Status: Ordered losartan 50 mg oral tablet 50 mg, 1, tablet, By Mouth, Daily, # 90 tablet, Refills 3, Tot. Refills 3, Maintenance, 04/26/22 15:42:00 EDT, Route to Pharmacy Electronically, [facility]/pharmacy #[id number], 100 mg tab on backorder, 152.4, cm, 03/30/22 13:46:00 EDT, Height, 73.5, kg, 12/12/21... Start Date: 04/26/22 Stop Date: 04/21/23 Status: Ordered predniSONE 20 mg oral tablet 2 tablet = 40 mg, By Mouth, Daily, for 5 days, to finish after current steroid coruse of 60 mg, # 10 tablet, 0 Refills, Acute 08/15/22 16:15:00 EDT, 08/10/22 16:15:00 EDT, [id number], Partialfill upon patient request if the prescription is fo... Start Date: 08/10/22 Stop Date: 08/15/22 Status: Ordered rosuvastatin 20 mg oral tablet 1 tablet, By Mouth, Daily, # 90 tablet, 1 Refills, Maintenance, 07/18/22 17:23:00 EDT, [id number], 152.4, cm, 06/28/22 16:41:00 EDT, Height, 75.6, kg, 05/14/22 7:15:00 EDT, Dry Weight Start Date: 07/18/22 Status: Ordered Vitamin D3 1000 intl units oral capsule 1 capsule = 1,000 International_Units, By Mouth, Daily, # 90 capsule, 1 Refills, Maintenance, 07/17/22 19:46:00 EDT, Capsule, [id number], 152.4, cm, 06/28/22 16:41:00 EDT, Height, [...] on: 10/01/17 Sex Patient Care team information Personnel Name: Ijeoma Lim MD Address: Address: [address] [place] [address] Adult & Pediatric [place], [place] [address] [[email or web address]]
--- OUTSIDE RECORDS SUMMARY | 2024-02-27 23:29 | XMS_ITS | Continuity of Care Document ---
Author Organization [facility] Address [address] [place] [address]- Care Team Providers Care Waiver Analyst Name Role Phone Ijeoma Lim MD Primary Care Physician [place] [facility] [place] 06/20/22 - 07/20/22 [facility] [address] [place], [place] [address] Allergies, Adverse Reactions, Alerts Substance Reaction [...] acel(Tdap) 12/27/17 Given 1Result Comment: Done at [employer] 2Result Comment: Done at work Medications aspirin [...] 3 Refills, Maintenance, 01/11/22 15:35:00 EDT, Tablet, [facility]/pharmacy #[id number], Partial fill upon patient request if the prescription is for a schedule II opioid drug., 152.4, cm, 01/11/22 15:23:00... Start Date: 01/11/22 Status: Ordered levothyroxine 0.137 mg oral tablet See Instructions, 1 tablet By Mouth 6 days per week and 1/2 pill on day 7, # 90 each, 3 Refills, Maintenance, 07/20/22 8:57:00 EDT, Tablet, [facility]/pharmacy #[id number], Partial fill upon patient request if the prescription is for a schedule II opioid drug., 15... Start Date: 07/20/22 Status: Ordered losartan 50 mg oral tablet 50 mg, 1, tablet, By Mouth, Daily, # 90 tablet, Refills 3, Tot. Refills 3, Maintenance, 04/26/22 15:42:00 EDT, Route to Pharmacy Electronically, [facility]/pharmacy #[id number], 100 mg tab on [...] Personnel Name: Ijeoma Lim MD Address: Address: [address] [place] [address] Adult & Pediatric [address]
--- OUTSIDE RECORDS SUMMARY | 2024-02-27 23:29 | XMS_ITS | Continuity of Care Document ---
Author Organization [facility] Address [address] [place] [address]- Care Team Providers Care Outside Barrel Lathe Operator Name Role Phone Ijeoma Lim MD Primary Care Physician [phone] Encounter [facility] [place] Date(s): 08/17/20 - 10/26/20 [facility] [address] [place] [address]- Attending Physician: Jose Vincent MD Referring Physician: Ijeoma Lim MD Allergies, [...] 13:54:00 EDT, Inhaler, Route to Pharmacy Electronically, [id number], [facility]/pharmacy #[id number], 152, cm, 01/18/20 9:51:00 EDT, [place]... Start Date: 02/12/20 Status: Ordered Aspirin Enteric Coated 81 mg oral delayed release tablet 1 tablet, By Mouth, Daily, # 90 tablet, 3 Refills, Maintenance, 08/19/20 9:23:00 EDT, [facility], 152, cm, 07/26/20 10:00:00 EDT, Height, 67.27, kg, 01/26/19 8:44:00 EDT, Dry Weight Start Date: 08/19/20 Status: Ordered chlorthalidone 25 mg oral tablet 25 mg, 1, tablet, By Mouth, Daily, # 90 tablet, Refills 3, Tot. Refills 3, Maintenance, 07/07/20 14:00:00 EDT, Route to Pharmacy Electronically, [facility]/pharmacy #[id number], 152, cm, 03/16/20 15:37:00 EDT, Height, [...] tablet, 0 Refills, Maintenance, 05/25/20 9:12:00 EDT, [facility]/pharmacy #[id number], labs needed, 152, cm, 03/16/20 15:37:00 EDT, Height, 67.27, kg, 01/26/19 8:44:00 EDT, Dry Weight Start Date: 05/25/20 Status: Ordered losartan 50 mg oral tablet 50 mg, 1, tablet, By Mouth, Daily, # 90 tablet, Refills 3, Tot. Refills 3, Maintenance, 01/21/20 9:57:00 EDT, Route to Pharmacy Electronically, [facility]/pharmacy #[id number], 100 mg tab on backorder, 152, [...] Date: 05/25/20 Stop Date: 05/20/21 Status: Ordered Zithromax 250 mg oral tablet 1 pack/packet, By Mouth, Once, # 6 tablet, 0 Refills, Soft Stop, 09/14/20 11:29:00 EST, Tablet, [id number], Partial fill upon patient request, 152, cm, 09/14/20 10:51:00 EST, Height, 67.27, kg, 01/26/19 8:44:00 EDT, Dry Weight Start Date: 09/14/20 Status: Ordered Problem List Condition Effective Dates [...]
--- OUTSIDE RECORDS SUMMARY | 2024-02-27 23:29 | XMS_ITS | Continuity of Care Document ---
Author Organization [facility] Address [address] [place] [address]- Care Team Providers Care Superintendent Operating Name Role Phone Raphael WILDER, Ijeoma Toth Primary Care Physician Encounter [facility] [place] Date(s): 06/05/21 - 07/05/21 [facility] [address] [place] [id number] Attending Physician: Gloria Prescott Admitting Physician: Gloria Prescott Referring Physician: Gloria Prescott Referring Physician: Monse Valentin Allergies, Adverse Reactions, Alerts Substance Reaction Severity [...] 13:54:00 EDT, Inhaler, Route to Pharmacy Electronically, [id number], [facility]/pharmacy #[id number], 152, cm, 01/18/20 9:51:00 EDT, [place]... Start Date: 02/12/20 Status: Ordered Teodora 0.1 mg/24 hours twice weekly transdermal film, extended release See Instructions, 0.1 mg estradiol patch transdermal, reapply every 72 hours, # 2 patch, 0 Refills,Maintenance, 01/28/21 17:24:00 EDT, [facility]/pharmacy #[id number], Partial fill upon patient request if the prescription is for a schedule II opioid drug., 152.4,... Start Date: 01/28/21 Status: Ordered chlorthalidone 25 mg oral tablet 25 mg, 1, tablet, By Mouth, Daily, # 90 tablet, Refills 3, Tot. Refills 3, Maintenance, 07/07/20 14:00:00 EDT, Route to Pharmacy Electronically, [facility]/pharmacy #[id number], 152, cm, 03/16/20 15:37:00 EDT, Height, 67.27, kg, 01/26/19 8:44:00 EDT, Dry Weight Start Date: 07/07/20 Stop Date: 07/02/21 Status: Ordered ferrous sulfate 325 mg oral tablet 1 tablet = 325 mg, By Mouth, Daily, Please take Saturday, Saturday, Saturday, # 90 tablet, 3 Refills, Maintenance, 04/06/19 11:47:50 EDT, Tablet Start Date: 04/06/19 Status: Ordered levothyroxine 125 mcg (0.125 mg) oral tablet 1 tablet = 125 mcg, By Mouth, Daily, # 30 tablet, 11 Refills, Maintenance, 06/05/21 8:04:00 EDT, Tablet, [facility]/pharmacy #[id number], Partial fill upon patient request if the prescription is for a schedule IIopioid drug., 152.4, cm, 06/05/21 7:52:00 EDT, [place]... Start Date: 06/05/21 Stop Date: 05/31/22 Status: Ordered losartan 50 mg oral tablet 50 mg, 1, tablet, By Mouth, Daily, # 90 tablet, Refills 1, Tot. Refills 1, Maintenance, 01/26/21 14:32:00 EDT, Route to Pharmacy Electronically, [facility]/pharmacy #[id number], 100 mg tab on backorder, 152.4, cm, 01/20/21 12:01:00 EDT, Height, 73.64, kg, 01/20/21... Start Date: 01/26/21 Stop Date: 07/25/21 Status: Ordered omeprazole 20 mg oral enteric coated capsule 1 capsule = 20 mg, By Mouth, Daily, # 90 capsule, 3 Refills, Maintenance, 05/26/20 15:26:00 EDT, ECCapsule, [facility]/pharmacy #[id number], 152, cm, 03/16/20 15:37:00 EDT, Height, 67.27, kg, 01/26/19 8:44:00 EDT, Dry Weight Start Date: 05/26/20 Status: Ordered pravastatin 40 mg oral tablet 1 tablet = 40 mg, By Mouth, Daily, # 30 tablet, 5 Refills, Maintenance, 07/26/20 10:27:00 EDT, Tablet, [facility]/pharmacy #[id number], 152, cm, 07/26/20 10:00:00 EDT, Height, 67.27, kg, 01/26/19 8:44:00 EDT, DryWeight Start Date: 07/26/20 Status: Ordered simethicone 80 mg oral tablet, chewable 80 mg, Chew, 5 times a day, PRN, For Gaseous Distention/Discomfort, # 90 tablet, Refills 0, Tot. Refills 0, Maintenance, Other, 05/12/21 16:35:00 EDT, Route to Pharmacy Electronically, [facility]/pharmacy #[id number], Partial fill upon patient request if [...]
--- OUTSIDE RECORDS SUMMARY | 2024-02-27 23:29 | XMS_ITS | Continuity of Care Document ---
Author Organization [facility] Address [address] [place] [address]- Care Team Providers Care Net Web Application Developer Name Role Phone Ijeoma Lim MD Primary Care Physician [place] [facility] [place](s): 09/16/23 - 10/16/23 [facility] [address] [place] [id number] Allergies, Adverse Reactions, Alerts Substance Reaction [...] acel(Tdap) 12/27/17 Given 1Result Comment: Done at [employer] 2Result Comment: Done at work Medications barium sulfate 2% oral suspension See Instructions, dispense 2 bottles 1st bottle 6 hrs before & 2nd bottle [address], # 2each, 0 Refills, Maintenance, 09/13/23 9:28:00 EST, [facility]/pharmacy #[id number], Partial fill upon patient request if the prescription is for a schedule II opioid... Start Date: 09/13/23 Status: Ordered chlorthalidone 25 mg oral tablet 1, tablet, By Mouth, Daily, # 90 tablet, Refills 1, Maintenance, 08/20/23 0:15:00 EDT, Route to Pharmacy Electronically, [facility], 152, cm, 08/01/23 10:56:00 EDT, Height, 76.8, kg, 05/16/23 10:20:00 EDT, Dry Weight Start Date: 08/20/23 Status: Ordered docusate sodium 100 mg oral capsule 100 mg, 1, capsule, By Mouth, 2 times a day, # 60 capsule, Refills 1, Tot. Refills 1, Maintenance, 09/13/23 9:07:00 EST, Route to Pharmacy Electronically, [facility]/pharmacy #[id number], Partial fill upon patient request if [...] EDT, Route to Pharmacy Electronically, [facility], 152, cm, 08/01/23 10:56:00 EDT, Height, 76.8, kg, 05/16/23 10:20:00 EDT, Dry Weight Start Date: 08/24/23 Status: Ordered fluticasone 50 mcg/inh nasal spray 1 sprays, Nares, Both, 2 times a day, # 16 Gm, 0 Refills, Maintenance, 08/01/23 11:21:00 EDT, [place], [facility]/pharmacy #[id number], Partial fill upon patient request if the prescription is for a schedule II opioid drug., 1 sprays Nares, Both 2 times a day, 152,... Start Date: 08/01/23 Status: Ordered levothyroxine 0.137 mg oral tablet 1 tablet = 137 mcg, By Mouth, Daily, # 60 tablet, 6 Refills, Maintenance, 09/16/23 19:32:00 EST, Tablet, [facility]/pharmacy #[id number], Partial fill upon patient request if the prescription is for a schedule IIopioid drug., 152, cm, 09/13/23 8:42:00 EST, Height... Start Date: 09/16/23 Stop Date: 11/09/24 Status: Ordered losartan 50 mg oral tablet 50 mg, 1, tablet, By Mouth, Daily, # 90 tablet, Refills 3, Tot. Refills 3, Maintenance, 05/06/23 10:17:00 EDT, Route to Pharmacy Electronically, [facility]/pharmacy #[id number], 100 mg tab on backorder, 152.4, cm, 05/06/23 9:42:00 EDT, Height, 75.6, kg, 05/14/22 7... Start Date: 05/06/23 Stop Date: 04/30/24 Status: Ordered montelukast 10 mg oral tablet 10 mg, 1, tablet, By Mouth, Daily, # 90 tablet, Refills 3, Tot. Refills 3, Maintenance, 05/06/23 10:17:00 EDT, Route to Pharmacy Electronically, [facility]/pharmacy #[id number], Partial fill upon patient request if the prescription is for a schedule II opioid drug... Start Date: 05/06/23 Stop Date: 04/30/24 Status: Ordered omeprazole 40 mg oral enteric coated capsule 1 capsule = 40 mg, By Mouth, Daily, # 90 capsule, 3 Refills, Maintenance, 10/09/23 16:07:00 EST, ECCapsule, [facility]/pharmacy #[id number], Partial fill upon patient request if the prescription is for a schedule II opioid drug., 152, cm, 10/09/23 15:44:00 EST, H... Start Date: 10/09/23 Stop Date: 10/03/24 Status: Ordered rosuvastatin 20 mg oral tablet 1 tablet, By Mouth, Daily, # 90 tablet, 3 Refills, Maintenance, 01/09/23 9:26:00 EDT, [facility]/pharmacy #[id number], 152.4, cm, 01/09/23 8:53:00 EDT, Height, [...] Primary Care Member Role: PCP Address: Address: [address] [place] [address] Adult & [place] [address]- Care Team Related Persons Name: TAZ BATES Address: home [address] [place] [address]
--- OUTSIDE RECORDS SUMMARY | 2024-02-27 23:29 | XMS_ITS | Continuity of Care Document ---
Author Organization [facility] Address [address] [place] [address]- Care Team Providers Care Grainer Machine Name Role Phone Ijeoma Lim MD Primary Care Physician [phone] Encounter [facility] Date(s): 06/05/22 - 06/12/22 [facility] [address] [place], [place] [address] Encounter Diagnosis Obesity(Discharge Diagnosis) - 06/06/22 GERD (gastroesophageal reflux disease)(Discharge Diagnosis) - 06/06/22 Hypertension(Discharge Diagnosis) - 06/06/22 Papillary thyroid carcinoma - s/p total thyroidectomy 11/12/2018(Discharge Diagnosis) - 06/06/22 Hypothyroidism(Discharge Diagnosis) - 06/06/22 Attending Physician: Ijeoma Lim MD Allergies, Adverse [...] 3 Refills, Maintenance, 01/11/22 15:35:00 EDT, Tablet, [facility]/pharmacy #[id number], Partial fill upon patient [...] 04/26/22 15:42:00 EDT, Route to Pharmacy Electronically, [facility]/pharmacy #[id number], 100 mg tab on [...] 11/12/2018(Confirmed) Active PVCs (premature ventricular contractions)(Confirmed) Active Diagnosis Diagnosis Type Effective Dates Health Status Clinical Service Informant Obesity Discharge Diagnosis 06/06/22 GERD (gastroesophageal reflux disease) Discharge Diagnosis 06/06/22 Hypertension Discharge Diagnosis 06/06/22 Papillary thyroid carcinoma - s/p total thyroidectomy 11/12/2018 Discharge Diagnosis 06/06/22 Hypothyroidism Discharge Diagnosis 06/06/22 Social History Social History Type Response Smoking Status Never smoker; Tobacc o user in household: No entered on: 10/01/17 Sex
--- OUTSIDE RECORDS SUMMARY | 2024-02-27 23:29 | XMS_ITS | Continuity of Care Document ---
Author Organization [facility] Address [address] [place] [address]- Care Team Providers Care Er Physician Name Role Phone Raphael WILDER, Ijeoma Toth Primary Care Physician [phone] Encounter [facility] Date(s): 08/08/22 - 09/07/22 [facility] [address] [place], [place] [address] Allergies, Adverse Reactions, Alerts Substance Reaction [...] Recorde d influenza virus vaccine, inactivated 09/02/19 Josuha rded influenza virus vaccine, inactivated 07/25/18 Joshua rded influenza virus vaccine, inactivated 12/27/17 Give n pneumococcal 23-valent vaccine 02/17/19 Given tetanus/diphtheria/pertussis, acel(Tdap) 12/27/17 Given 1Result Comment: Done at [facility] 2Result Comment: Done at work Medications aspirin [...] 08/13/22 12:20:00 EDT, Route to Pharmacy Electronically, [facility]/pharmacy #[id number], 152.4, cm, 08/10/22 15:55:00 EDT, Height, 75.6, kg, 05/14/22 7:15:00 EDT, Dry Weight Start Date: 08/13/22 Stop Date: 08/08/23 Status: Ordered cyclobenzaprine 10 mg oral tablet 1, tablet, By Mouth, 3 times a day, # 10 tablet, Refills 1, Maintenance, 08/27/22 7:59:00 EST, Route to Pharmacy Electronically, [facility] STORE [id number], 152.4, cm, 08/10/22 15:55:00 EDT, Height, 75.6, [...] 3 Refills, Maintenance, 01/11/22 15:35:00 EDT, Tablet, [facility]/pharmacy #[id number], Partial fill upon patient request if the prescription is for a schedule II opioid drug., 152.4, cm, 01/11/22 15:23:00... Start Date: 01/11/22 Status: Ordered levothyroxine 0.137 mg oral tablet See Instructions, 1 tablet By Mouth 6 days per week and 1/2 pill on day 7, # 90 each, 3 Refills, Maintenance, 07/20/22 8:57:00 EDT, Tablet, [facility]/pharmacy #[id number], Partial fill upon patient request if the prescription is for a schedule II opioid drug., 15... Start Date: 07/20/22 Status: Ordered losartan 50 mg oral tablet 50 mg, 1, tablet, By Mouth, Daily, # 90 tablet, Refills 3, Tot. Refills 3, Maintenance, 04/26/22 15:42:00 EDT, Route to Pharmacy Electronically, [facility]/pharmacy #[id number], 100 mg tab on backorder, 152.4, cm, 03/30/22 13:46:00 EDT, Height, 73.5, kg, 12/12/21... Start Date: 04/26/22 Stop Date: 04/21/23 Status: Ordered rosuvastatin 20 mg oral tablet 1 tablet, By Mouth, Daily, # 90 tablet, 1 Refills, Maintenance, 07/18/22 17:23:00 EDT, [facility]/pharmacy#[id number], 152.4, cm, 06/28/22 16:41:00 EDT, Height, 75.6, kg, 05/14/22 7:15:00 EDT, Dry Weight Start Date: 07/18/22 Status: Ordered Vitamin D3 1000 intl units oral capsule 1 capsule = 1,000 International_Units, By Mouth, Daily, # 90 capsule, 1 Refills, Maintenance, 07/17/22 19:46:00 EDT, Capsule, [facility]/pharmacy #[id number], 152.4, cm, 06/28/22 16:41:00 EDT, Height, [...] Team Personnel Name: Bailee Martinez RN Position: [facility] AMB Nurse Member Role: Primary Care Nurse Name: Ijeoma Lim MD Position: [facility] Primary Care Physician Member Role: PCP Address: Address: [address] [place] [address] Adult & Pediatric [address] Care Team Related Persons Name: TAZ BATES Address: home [address] [place] [address]
--- OUTSIDE RECORDS SUMMARY | 2024-02-27 23:29 | XMS_ITS | Continuity of Care Document ---
Author Organization [facility] Address [address] [place] [address]- Care Team Providers Care Research Consultant Name Role Phone Raphael WILDER, Ijeoma Toth Primary Care Physician Encounter [facility] Date(s): 11/07/21 - 12/07/21 [facility] [address] [place], [place] [address] Allergies, Adverse Reactions, Alerts Substance [...] Date: 10/24/21 Stop Date: 04/22/22 Status: Ordered Teodora 0.1 mg/24 hours twice weekly transdermal film, extended release See Instructions, 0.1 mg estradiol patch transdermal, reapply every 72 hours, # 2 patch, 0 Refills,Maintenance, 01/28/21 17:24:00 EDT, [facility]/pharmacy #[id number], Partial fill upon patient request if [...] Date: 10/24/21 Stop Date: 10/19/22 Status: Ordered levothyroxine 125 mcg (0.125 mg) [...] Dry Weight Start Date: 10/24/21 Status: Ordered pravastatin 40 mg oral tablet 1 tablet = 40 mg, By Mouth, Daily, # 30 tablet, 5 Refills, Maintenance, 07/26/20 10:27:00 EDT, Tablet, [facility]/pharmacy #[id number], 152, cm, 07/26/20 10:00:00 EDT, Height, 67.27, kg, 01/26/19 8:44:00 EDT, DryWeight Start Date: 07/26/20 Status: Ordered simethicone 80 mg oral tablet, chewable 80 mg, Chew, 5 times a day, PRN, For Gaseous Distention/Discomfort, # 90 tablet, Refills 0, Tot. Refills 0, Maintenance, Other, 05/12/21 16:35:00 EDT, Route to Pharmacy Electronically, [facility]/pharmacy #[id number], Partial fill upon patient request if the presc... Start Date: 05/12/21 Status: Ordered Splint See Instructions, # 1 [...]
--- OUTSIDE RECORDS SUMMARY | 2024-02-27 23:29 | XMS_ITS | Continuity of Care Document ---
Author Organization [facility] Address [address] [place] [address]- Care Team Providers Care Barrel Centerer Name Role Phone Raphael WILDER, Ijeoma Toth Primary Care Physician Encounter [facility] Date(s): 03/13/23 - 04/12/23 [facility] [address] [place] [id number] Allergies, Adverse Reactions, Alerts Substance Reaction Severity [...] acel(Tdap) 12/27/17 Given 1Result Comment: Done at [facility] 2Result Comment: Done at work Medications aspirin [...] 09/24/22 16:52:00 EST, Route to Pharmacy Electronically, [facility]/pharmacy #[id number], Partial fill upon patient request if the prescription is for a schedule II opi... Start Date: 09/24/22 Status: Ordered chlorthalidone 25 mg oral tablet 25 mg, 1, tablet, By Mouth, Daily, # 90 tablet, Refills 3, Tot. Refills 3, Maintenance, 08/13/22 12:20:00 EDT, Route to Pharmacy Electronically, [facility]/pharmacy #[id number], 152.4, cm, 08/10/22 15:55:00 EDT, [...] 3 Refills, Maintenance, 01/11/22 15:35:00 EDT, Tablet, [facility]/pharmacy #[id number], Partial fill upon patient request if the prescription is for a schedule II opioid drug., 152.4, cm, 01/11/22 15:23:00... Start Date: 01/11/22 Status: Ordered FLUoxetine 10 mg oral capsule 10 mg, 1, capsule, By Mouth, Daily, # 90 capsule, Refills 1, Tot. Refills 1, Maintenance, 03/06/23 9:30:00 EDT, Route to Pharmacy Electronically, [facility]/pharmacy #[id number], Partial fill upon patient requestif the prescription is for a schedule II opioid eva... Start Date: 03/06/23 Stop Date: 09/02/23 Status: Ordered levothyroxine 150 mcg (0.15 mg) oral tablet See Instructions, 1 tablet By Mouth 6 days weekly and 0.5 tabs on the 7th day., # 30 each, 11 Refills, Maintenance, 11/01/22 13:39:00 EST, [facility]/pharmacy #[id number], Partial fill upon patient request if theprescription is for a schedule II opioid drug., 152... Start Date: 11/01/22 Status: Ordered losartan 50 mg oral tablet 50 mg, 1, tablet, By Mouth, Daily, # 90 tablet, Refills 3, Tot. Refills 3, Maintenance, 04/26/22 15:42:00 EDT, Route to Pharmacy Electronically, [facility]/pharmacy #[id number], 100 mg tab on backorder, 152.4, cm, 03/30/22 13:46:00 EDT, Height, 73.5, kg, 12/12/21... Start Date: 04/26/22 Stop Date: 04/21/23 Status: Ordered montelukast 10 mg oral tablet 10 mg, 1, tablet, By Mouth, Daily, # 30 tablet, Refills 1, Tot. Refills 1, Maintenance, 03/06/23 9:29:00 EDT, Route to Pharmacy Electronically, [facility]/pharmacy #[id number], Partial fill upon patient request if the prescription is for a schedule II opioid drug.... Start Date: 03/06/23 Stop Date: 05/05/23 Status: Ordered rosuvastatin 20 mg oral tablet 1 tablet, By Mouth, Daily, # 90 tablet, 3 Refills, Maintenance, 01/09/23 9:26:00 EDT, [facility]/pharmacy #[id number], 152.4, cm, 01/09/23 8:53:00 EDT, Height, 75.6, kg, 05/14/22 7:15:00 EDT, Dry Weight Start Date: 01/09/23 Status: Ordered Vitamin D3 1000 intl units oral capsule 1 capsule = 1,000 International_Units, By Mouth, Daily, # 90 capsule, 3 Refills, Maintenance, 01/09/23 9:26:00 EDT, Capsule, [facility]/pharmacy #[id number], 152.4, cm, 01/09/23 8:53:00 EDT, [...] Team Personnel Name: Michelle LIN, Bailee Position: [facility] AMB Nurse Member Role: Primary Care Nurse Name: Raphael WILDER, Ijeoma Toth Position: [facility] Physician - Primary Care Member Role: PCP Address: Address: [address] [place] [address] Adult [place] [address]- Care Team Related Persons Name: JANA TAZ Address: [address] [place] [address]
--- OUTSIDE RECORDS SUMMARY | 2024-02-27 23:29 | XMS_ITS | Continuity of Care Document ---
Author Organization [facility] ter Address [address] [place] [id number]- Care Team Providers Care Armature Winder Repairer Name Role Phone Ijeoma Lim MD Primary Care Physician Encounter [facility] Date(s): 05/16/23 - 05/16/[address] [address] Discharge Disposition: A-D/C Home Attending Physician: Santos Zapata MD Admitting Physician: Santos Zapata MD Referring Physician: Santos Zapata MD Allergies, Adverse Reactions, Alerts Substance Reaction [...] Shiners 2Result Comment: Done at work Medications acetaminophen 325 mg oral tablet 650 mg, 2, tablet, By Mouth, Every 6 hours, PRN, # 100 tablet, Refills 0, Tot. Refills 0, Acute 05/25/23 16:48:00 EDT, as needed for pain, 05/08/23 16:48:00 EDT, Route to Pharmacy Electronically, [facility]/pharmacy #[id number], Partial fill upon patient request i... Start Date: 05/08/23 Stop Date: 05/25/23 Status: Ordered chlorthalidone 25 mg oral tablet 25 mg, 1, tablet, By Mouth, Daily, # 90 tablet, Refills 3, Tot. Refills 3, Maintenance, 08/13/22 12:20:00 EDT, Route to Pharmacy Electronically, [facility]/pharmacy #[id number], 152.4, cm, 08/10/22 15:55:00 EDT, Height, [...] 3 Refills, Maintenance, 01/11/22 15:35:00 EDT, Tablet, [facility]/pharmacy #[id number], Partial fill upon patient request if the prescription is for a schedule II opioid drug., 152.4, cm, 01/11/22 15:23:00... Start Date: 01/11/22 Status: Ordered FLUoxetine 10 mg oral capsule 10 mg, 1, capsule, By Mouth, Daily, # 90 capsule, Refills 1, Tot. Refills 1, Maintenance, 03/06/23 9:30:00 EDT, Route to Pharmacy Electronically, [facility]/pharmacy #[id number], Partial fill upon patient requestif the prescription is for a schedule II opioid eva... Start Date: 03/06/23 Stop Date: 09/02/23 Status: Ordered ibuprofen 600 mg oral tablet 600 mg, 1, tablet, By Mouth, Every 6 hours, for 14 days, alternate every 6 hrs with tylenol, # 50 tablet, Refills 0, Tot. Refills 0, Acute 05/22/23 16:48:00 EDT, 05/08/23 16:48:00 EDT, Route to Pharmacy Electronically, [facility]/pharmacy #[id number], Partial fill... Start Date: 05/08/23 Stop Date: 05/22/23 Status: Ordered levothyroxine 150 mcg (0.15 mg) [...] 05/06/23 10:17:00 EDT, Route to Pharmacy Electronically, [facility]/pharmacy #[id number], 100 mg tab on backorder, 152.4, cm, 05/06/23 9:42:00 EDT, Height, 75.6, kg, 05/14/22 7... Start Date: 05/06/23 Stop Date: 04/30/24 Status: Ordered montelukast 10 mg oral tablet 10 mg, 1, tablet, By Mouth, Daily, # 90 tablet, Refills 3, Tot. Refills 3, Maintenance, 05/06/23 10:17:00 EDT, Route to Pharmacy Electronically, [facility]/pharmacy #[id number], Partial fill upon patient request if the prescription is for a schedule II opioid drug... Start Date: 05/06/23 Stop Date: 04/30/24 Status: Ordered oxyCODONE 5 mg oral tablet 5 mg, 1, tablet, By Mouth, Every 6 hours, PRN, # 8 tablet, Refills 0, Tot. Refills 0, Acute 05/17/23 11:45:00 EDT, for pain, 05/16/23 11:45:00 EDT, Route to Pharmacy Electronically, [facility]/pharmacy #[id number], Partial fill upon patient request if the prescrip... Start Date: 05/16/23 Stop Date: 05/17/23 Status: Ordered potassium chloride 20 mEq oral [...] Active PVCs (premature ventricular contractions) Confirmed Active Vital Signs Most recent to oldest [Reference Range]: 1 2 3 Height 152 cm (05/16/23 10:20 AM) 152 cm (05/13/23 12:02 PM) Weight 76.8 kg (05/16/23 10:20 AM) 77 kg (05/13/23 12:02 PM) Oxygen Saturation [94-100 %] 96 % (05/16/23 12:30 PM) 100 % (05/16/23 12:15 PM) 99 % (05/16/23 12:00 PM) Pulse Rate [55-90 bpm] 67 bpm (05/16/23 10:20 AM) Body Mass Index [18.5-24.99 kg/m2] 33.24 kg/m2 *>HHI* (05/16/23 10:20 AM) 33.33 kg/m2 *>HHI* (05/13/23 12:02 PM) Blood Pressure [90-138/55-84 mm Hg] 122/73mm Hg (05/16/23 12:30 PM) 119/67mm Hg (05/16/23 12:15 PM) 106/68mm Hg (05/16/23 12:00 PM) Respiratory Rate [16-30 br/min] 10 br/min *L* (05/16/23 12:30 PM) 14 br/min *L* (05/16/23 12:15 PM) 17 br/min (05/16/23 12:00 PM) Temperature [96.8-100.4 DegF] 98 DegF (05/16/23 12:30 PM) 98.4 DegF (05/16/23 11:45 AM) 97.4 DegF (05/16/23 10:20 AM) Liters per Minute 5 L/min (05/16/23 12:00 PM) 5 L/min (05/16/23 11:45 AM) Mode of Delivery (Oxygen) Room air (05/16/23 12:30 PM) Room air (05/16/23 12:15 PM) Simple face mask (05/16/23 12:00 PM) Temperature Route Temporal (05/16/23 12:30 PM) Temporal (05/16/23 11:45 AM) Temporal (05/16/23 10:20 AM) Dry Weight 76.8 kg (05/16/23 10:20 AM) 77 kg (05/13/23 12:02 PM) Weight Obtained Via Standing scale (05/16/23 10:20 AM) Patient/family stated (05/13/23 12:02 PM) Dry Weight Obtained Via Standing scale (05/16/23 10:20 AM) Patient/family stated (05/13/23 12:02 PM) Social History Social History Type Response Smoking Status Never smoker; Tobacc o user in household: No entered on: 10/01/17 Sex Note * Veronica Melton RN: PERFORM Event Display: Patient Education/Instruction Authored Date: [id number] Surgery Adult Discharge Instructions [address] [id number] Name: ANTONI DRUMMOND : 1970?? Visit: 05/16/2023 09:43?? Current Date: 05/16/2023 12:15 ?? Account: [id number]?? Surgery Discharge Instructions We would like to thank you for allowing us to assist you with your healthcare needs. The following includes patient education materials and information regarding your injury/illness. Our entire staffstrives to provide an excellent experience for our patients and their families. PLEASE ENSURE YOU FOLLOW-UP PER THE INSTRUCTIONS BELOW! ?? YOUR OPINION IS IMPORTANT TO US! Please complete the survey you may receive by mail or email. Your feedback will be used to make improvements to the healthcare experiences of our patients and their families. Surveys are administered by [employer] ?? If further treatment with your primary care physician or another doctor is recommended, it is important for you to keep the appointment. Call your primary care physician or return to the Emergency Department immediately if your condition worsens, fails to improve, or new symptoms develop. If you need to find a doctor, you can call [facility] [employer] for a referral at [phone] or toll free at [phone] or log in to [email or web address].. ?? You can view and manage your care through the patient portal or by using a health care ce of your choosing. [employer] is a website that allows you to securely view your medical information including your hospital discharge summary, office visit summaries, medications and follow-up visits. You can also request appointments, renew medications, and request access to your medical information using a health care ce of your choosing, or just ask a question. You are entitled to know the individuals who participated in your treatment. This information is available within your medical record and will be provided upon your request. You can enroll at [email or web address] or register d uring your next office visit. You have been discharged from [facility], Patient Care Unit: [facility]??. If you have any questions regarding these instructions after you leave, please call us and we will be happy to assist you. [facility] Your Care Team Attending Physician Benny WILDER, Santos Miranda?? Discharging Providers Audrey REYES, Mya Zheng Reason for Admission [employer] CS DS Primary Care Provider Raphael WILDER, Ijeoma Toth? Advance Directive Health Care Proxy on File Yes - Health Care Proxy What to do next Instructions From Your Doctor ?? Orders?? Unit Discharge Criteria Met, ??05/16/23 11:47:00 EDT?? Prescriptions??, ??05/16/23 11:47:00 EDT?? Instructions from your Care Team keep your left hand elevated on?? pillows apply ??ice pack 20 min om 40 min off hourly for 2 days during your waking hours remove the dressing in 3 days, wash incision with soap and water and dry ??do not apply bandaids, leave it open to the air Scheduled Follow-Up Appointments Saturday 2:45 PM EDT ?? Where: [facility] [address] [address]- Status: Pending 2022 11:20 AM EDT ?? Where: [facility] Plastic Surgery [address] [place] [address]- Status: Pending You Need to Schedule the Following Appointments Follow Up with??Santos Zapata Where: [address] [place] [address] [place] [address]- Business (1) Follow Up with??Ijeoma Lim When:??In 0 days Discharge Medications ANTONI DRUMMOND :1970 Visit Date:05/16/2023 Medications: Please continue your medications until treatment is completed or stopped by your provider. You may resume your daily prescription medications. Discuss any questions related to medications with your provider. What How Much When Instructions Next Dose New Oxycodone (oxyCODONE 5 mg oral tablet) 1 tab(s) Oral Every 6 hours as needed for for pain Pickup at [facility]/pharmacy #[id number] Unchanged Acetaminophen (acetaminophen 325 mg oral tablet) 2 tab(s) Oral Every 6 hours as needed for as needed for pain Pickup at [facility]/pharmacy #[id number] Unchanged Chlorthalidone (chlorthalidone 25 mg oral tablet) 1 tab(s) Oral Daily Duration: 90 Days Unchanged Cholecalciferol (Vitamin D3 1000 intl units oral capsule) 1 capsule Oral Daily Duration: 90 Days Unchanged Estradiol (Estrace 1 mg oral tablet) 1 tab(s) Oral Daily Unchanged Famotidine (famotidine 40 mg oral tablet) 1 tab(s) Oral Daily at Bedtime Unchanged Fluoxetine (FLUoxetine 10 mg oral capsule) 1 capsule Oral Daily Duration: 90 Days Unchanged Ibuprofen (ibuprofen 600 mg oral tablet) 1 tab(s) Oral Every 6 hours Duration: 14 Days alternate every 6 hrs with tylenol ?? Pickup at [facility]/pharmacy #[id number] Unchanged Levothyroxine (levothyroxine 150 mcg (0.15 mg) oral tablet) See instructions 1 tablet By Mouth 6 days weekly . as directed with plenty of water as a single daily dose before breakfast avoid antacids, calcium, or iron for at least 4 hrs before or 4 hrs after ?? Unchanged Losartan (losartan 50 mg oral tablet) 1 tab(s) Oral Daily Duration: 90 Days Unchanged Montelukast (montelukast 10 mg oral tablet) 1 tab(s) Oral Daily Duration: 90 Days Unchanged Potassium Chloride (potassium chloride 20 mEq oral tablet, extended release) 1 tab(s) Oral Daily Duration: 30 Days Unchanged Rosuvastatin (rosuvastatin 20 mg oral tablet) 1 tab(s) Oral Daily Pharmacy Information [facility]/pharmacy #[id number]: [id number] [place] [phone] Allergies (NKA means No Known Allergies) Latex??(RASH, ÁLVAREZ AND ITCHES) penicillin??(ITCHY) Education Materials Below is the list of Educational Leaflet Providered with your Discharge Instructions. Surgery Medical Daystay Surgical Overnight Discharge Instructions?? Valuables and Belongings I fully understand and agree that [facility] accepts no responsibility for all my personal property including clothing, toilet articles, radios, jewelry, dentures, hearing aids, rings, money, or any other property that is in my possession or is brought to me after admission. I understand certain valuables may be placed in a hospital safe for a short period of time. I understand that the hospital is not liable for loss or damage due to accident, fire, or other natural occurrence while said property is in the safe. I accept full responsibility for any personal property that I keep with me, and will not hold the hospital responsible in case of loss or disappearance. I acknowledge that i have been encouraged to send valuables and belongings home. ?? Review of Valuable and Belonging List: With patient Date for Pt to Sign Valuables/Belongings: 05/16/23 10:20:00 ?? Valuables & Belongings ?? Clothes Electronic devices Jewelry Monetary Items Personal devices Miscellaneous Medications (Valuables) Valuables at Bedside Shoes, Undergarments Cell phone ?? Other: backpack with 18 castillo ? Valuables Sent Home ? Valuables Sent to Security ? Other Discharge Information ? Pulmonary Rehab Status?? Pulmonary Rehab Discharge Status?? Respiratory Rate: 17 br/min ? Common Emergency Awareness Tips IS IT A STROKE? Act FAST and Check for these signs: FACE Does the face look uneven? ARM Does one arm drift down? SPEECH Does their speech sound strange? TIME Call at any sign of stroke ?? Heart Attack Signs Chest discomfort: Most heart attacks involve discomfort in the center of the chest and lasts more than a few minutes, or goes away and comes back. It can feel like uncomfortable pressure, squeezing, fullness or pain. Discomfort in upper body: Symptoms can include pain or discomfort in one or both arms, back, neck, jaw or stomach. Shortness of breath: With or without discomfort. Other signs: Breaking out in a cold sweat, nausea, or lightheaded. Remember, MINUTES DO MATTER. If you experience any of these heart attack warning signs, call to get immediate medical attention! ?? Smoking can increase your chances of developing chronic health problems and can cause harmful effects to other family members in your house. If you smoke, you are strongly encouraged to quit. Please call [employer] [facility] at [phone] or [phone]) or log in to [email or web address] for referrals to smoking cessation programs. ?? The National Suicide Prevention Hotline is available 13/05 if you or someone you know needs to find a reason to keep living. By calling 4-075-693-qcgq (5716) you'll be connected to a skilled, trained counselor at a crisis center in your area. SURGERY DISCHARGE INSTRUCTIONS SIGNATURE PAGE ANTONI DRUMMOND Location:[facility] Registration Date and Time:05/16/2023 09:43 EDT Primary Care Physician: Raphael WILDER, Ijeoma Toth, Attending Physician: Benny WILDER, Santos Miranda, ANTONI DANG, have received the above patient education materials/instructions and have verbalized understanding. If ambulance or transport services are being used I further acknowledge being given a choice of service. ?? If you need to contact me, please call me at this number: . Patient/Subsorter Name: Patient/Subsorter Signature: Relationship to Patient: Witness Name/Signature: Date: * Veronica Melton RN: PERFORM, SIGN, VERIFY Event Display: Patient Education Handout Authored Date: Veronica Short RN: PERFORM Event Display: Patient Education Leaflets Authored Date: Surgery Medical Daystay Surgical Overnight Discharge Instructions ?? 295 Medical Daystay/Surgical Overnight Discharge Instructions ? Since your coordination and judgment may be altered by medication and/or anesthesia, a responsible adult must drive you home from the hospital. ? If you have received medication for pain or sedation while under our care, you should not drive, operate machinery, drink alcohol, or sign any legal documents for 24 hours.?? You should have someone with you at home tonight. ? Remain at home the day of discharge.?? You may be up and about unless otherwise instructed by your physician. ? You may resume your daily prescription medication schedule.?? Any depressant medication should be avoided for 24 hours unless otherwise instructed by your surgeon or anesthesiologist. ? Call your physician for a follow-up appointment.? If you experience unusual or severe pain not relied by your pain medication, excessive bleedingor drainage, persistent nausea and vomiting, excessive swelling or redness, foul odor from incisionsite or fever over 100.6F, you need to call your physician. ? A follow-up phone call by a nurse will be made the day after your procedure.?? If you have stayed with us over night, you will not be receiving a follow-up phone call. ? Nausea and vomiting are a common side effect of prescription pain medication.?? We recommend that pills are not taken on an empty stomach.?? While taking any prescription pain medication you should not drive or drink alcohol. ? Patient Care team information Care Team Personnel Name: Michelle LIN, Bailee Position: [facility] AMB Nurse Member Role: Primary Care Nurse Name: Raphael WILDER, Ijeoma Toth Position: [facility] Physician - Primary Care Member Role: PCP Address: Address: [facility] [place] [address]- Care Team Related Persons Name: TAZ BATES Address: [address] [place] [address]
--- OUTSIDE RECORDS SUMMARY | 2024-02-27 23:29 | XMS_ITS | Continuity of Care Document ---
Author Organization [facility] ter Address [address] [place] [address]- Care Team Providers Care Park Recreation Manager Name Role Phone Ijeoma Lim MD Primary Care Physician Encounter [facility] [place] Date(s): 09/17/23 - 10/23/[address] [address]- Attending Physician: Cait Werner NP Admitting Physician: Alphonso REYES, Cait Ramirez Referring Physician: Cait Werner NP Allergies, Adverse Reactions, Alerts Substance Reaction Severity [...] Shiners 2Result Comment: Done at work Medications barium sulfate 2% oral suspension See Instructions, dispense 2 bottles 1st bottle 6 hrs before & 2nd bottle [address], # 2each, 0 Refills, Maintenance, 09/13/23 9:28:00 EST, [id number], Partial fill upon patient request if the prescription is for a schedule II opioid... Start Date: 09/13/23 Status: Ordered chlorthalidone 25 mg oral tablet 1, tablet, By Mouth, Daily, # 90 tablet, Refills 1, Maintenance, 08/20/23 0:15:00 EDT, Route to Pharmacy Electronically, [id number], 152, cm, 08/01/23 10:56:00 EDT, Height, 76.8, kg, 05/16/23 10:20:00 EDT, Dry Weight Start Date: 08/20/23 Status: Ordered docusate sodium 100 mg oral capsule 100 mg, 1, capsule, By Mouth, 2 times a day, # 60 capsule, Refills 1, Tot. Refills 1, Maintenance, 09/13/23 9:07:00 EST, Route to Pharmacy Electronically, [facility]/pharmacy #[id number], Partial fill upon patient [...] EDT, Route to Pharmacy Electronically, [id number], 152, cm, 08/01/23 10:56:00 EDT, Height, 76.8, kg, 05/16/23 10:20:00 EDT, Dry Weight Start Date: 08/24/23 Status: Ordered fluticasone 50 mcg/inh nasal spray 1 sprays, Nares, Both, 2 times a day, # 16 Gm, 0 Refills, Maintenance, 08/01/23 11:21:00 EDT, [place], [facility]/pharmacy #[id number], Partial fill upon patient request if the prescription is for a schedule II opioid drug., 1 sprays Nares, Both 2 times a day, 152,... Start Date: 08/01/23 Status: Ordered levothyroxine 0.137 mg oral tablet 1 tablet = 137 mcg, By Mouth, Daily, # 60 tablet, 6 Refills, Maintenance, 09/16/23 19:32:00 EST, Tablet, [facility]/pharmacy #[id number], Partial fill upon patient request if the prescription is for a schedule IIopioid drug., 152, cm, 09/13/23 8:42:00 EST, Height... Start Date: 09/16/23 Stop Date: 11/09/24 Status: Ordered losartan 50 mg oral tablet 50 mg, 1, tablet, By Mouth, Daily, # 90 tablet, Refills 3, Tot. Refills 3, Maintenance, 05/06/23 10:17:00 EDT, Route to Pharmacy Electronically, [facility]/pharmacy #[id number], 100 mg tab on backorder, 152.4, cm, 05/06/23 9:42:00 EDT, Height, 75.6, kg, 05/14/22 7... Start Date: 05/06/23 Stop Date: 04/30/24 Status: Ordered montelukast 10 mg oral tablet 10 mg, 1, tablet, By Mouth, Daily, # 90 tablet, Refills 3, Tot. Refills 3, Maintenance, 05/06/23 10:17:00 EDT, Route to Pharmacy Electronically, [facility]/pharmacy #[id number], Partial fill upon patient request if the prescription is for a schedule II opioid drug... Start Date: 05/06/23 Stop Date: 04/30/24 Status: Ordered omeprazole 40 mg oral enteric coated capsule 1 capsule = 40 mg, By Mouth, Daily, # 90 capsule, 3 Refills, Maintenance, 10/09/23 16:07:00 EST, ECCapsule, [facility]/pharmacy #[id number], Partial fill upon patient [...] 3 Refills, Maintenance, 01/09/23 9:26:00 EDT, Capsule, [facility]/pharmacy #[id number], 152.4, cm, 01/09/23 8:53:00 EDT, [...] Personnel Name: Raphael WILDER, Ijeoma Toth Position: [facility] Physician - Primary Care Member Role: PCP Address: Address: [address] [place] [address] Adult & [place] [address]- Care Team Related Persons Name: TAZ BATES Address: [address] [place] [address]
--- OUTSIDE RECORDS SUMMARY | 2024-02-27 23:29 | XMS_ITS | Continuity of Care Document ---
Author Organization [facility] Address [address] [place] [address]- Care Team Providers Care Manager Of Loss Prevention Operations Name Role Phone Raphael WILDER, Ijeoma Toth Primary Care Physician [phone] Encounter [facility] Date(s): 10/25/22 - 11/24/22 [facility] [address] [place], [place] [address] Allergies, Adverse Reactions, Alerts Substance Reaction [...] acel(Tdap) 12/27/17 Given 1Result Comment: Done at [employer] 2Result Comment: Done at work Medications aspirin [...] 09/24/22 16:52:00 EST, [id number] Partial fill upon patient request if the prescription is for a schedule II opi... Start Date: 09/24/22 Status: Ordered chlorthalidone 25 mg oral tablet 25 mg, 1, tablet, By Mouth, Daily, # 90 tablet, Refills 3, Tot. Refills 3, Maintenance, 08/13/22 12:20:00 EDT, Route to Pharmacy Electronically, [facility]/pharmacy #[id number], 152.4, cm, 08/10/22 15:55:00 EDT, Height, 75.6, kg, 05/14/22 7:15:00 EDT, Dry Weight Start Date: 08/13/22 Stop Date: 08/08/23 Status: Ordered cyclobenzaprine 10 mg oral tablet 1, tablet, By Mouth, 3 times a day, # 10 tablet, Refills 1, Maintenance, 08/27/22 7:59:00 EST, Route to Pharmacy Electronically, [id number], 152.4, cm, 08/10/22 15:55:00 EDT, Height, 75.6, [...] 3 Refills, Maintenance, 01/11/22 15:35:00 EDT, Tablet, [facility]/pharmacy #[id number], Partial fill upon patient request if the prescription is for a schedule II opioid drug., 152.4, cm, 01/11/22 15:23:00... Start Date: 01/11/22 Status: Ordered levothyroxine 150 mcg (0.15 mg) oral tablet 1 tablet = 150 mcg, By Mouth, Daily, # 30 tablet, 11 Refills, Maintenance, 11/01/22 13:39:00 EST, [facility]/pharmacy #[id number], Partial fill upon patient request if the prescription is for a schedule II opioiddrug., 152.4, cm, 08/10/22 15:55:00 EDT, Height, 75... Start Date: 11/01/22 Status: Ordered losartan 50 mg oral tablet 50 mg, 1, tablet, By Mouth, Daily, # 90 tablet, Refills 3, Tot. Refills 3, Maintenance, 04/26/22 15:42:00 EDT, Route to Pharmacy Electronically, [facility]/pharmacy #[id number], 100 mg tab on [...] 1 Refills, Maintenance, 07/17/22 19:46:00 EDT, Capsule, [facility]/pharmacy #[id number], 152.4, cm, 06/28/22 16:41:00 EDT, [...] Team Personnel Name: Michelle LIN, Bailee Position: [facility] Nurse Member Role: Primary Care Nurse Name: Raphael WILDER, Ijeoma Toth Position: [facility] Primary Care Physician Member Role: PCP Address: Address: [address] [place] [address] Adult & [place] [address]- [place] Care Team Related Persons Name: TAZ BATES Address: [address] [place] [address]
--- OUTSIDE RECORDS SUMMARY | 2024-02-27 23:29 | XMS_ITS | Continuity of Care Document ---
Author Organization [facility] Address [address] [place] [address]- Care Team Providers Care Director Advertising Name Role Phone Ijeoma Lim MD Primary Care Physician [phone] Encounter [facility] Date(s): 05/11/23 - 06/10/23 [facility] [address] [place], [place] [address] Allergies, Adverse Reactions, Alerts Substance Reaction [...] acel(Tdap) 12/27/17 Given 1Result Comment: Done at [employer] 2Result Comment: Done at work Medications chlorthalidone 25 mg oral tablet 25 mg, 1, tablet, By Mouth, Daily, # 90 tablet, Refills 3, Tot. Refills 3, Maintenance, 08/13/22 12:20:00 EDT, Route to Pharmacy Electronically, [facility]/pharmacy #[id number], 152.4, cm, 08/10/22 15:55:00 EDT, [...] 05/06/23 10:17:00 EDT, Route to Pharmacy Electronically, [facility]/pharmacy #[id number], 100 mg tab on backorder, 152.4, cm, 05/06/23 9:42:00 EDT, Height, 75.6, kg, 05/14/22 7... Start Date: 05/06/23 Stop Date: 04/30/24 Status: Ordered montelukast 10 mg oral tablet 10 mg, 1, tablet, By Mouth, Daily, # 90 tablet, Refills 3, Tot. Refills 3, Maintenance, 05/06/23 10:17:00 EDT, Route to Pharmacy Electronically, [facility]/pharmacy #[id number], Partial fill upon patient request if the prescription is for a schedule II opioid drug... Start Date: 05/06/23 Stop Date: 04/30/24 Status: Ordered potassium chloride 20 mEq oral tablet, extended release 1 tablet = 20 mEq, By Mouth, Daily, # 30 tablet, 1 Refills, Maintenance, 05/11/23 22:39:00 EDT, ER Tablet, [facility]/pharmacy #[id number], Partial [...] 3 Refills, Maintenance, 01/09/23 9:26:00 EDT, Capsule, [facility]/pharmacy #[id number], 152.4, cm, 01/09/23 8:53:00 EDT, [...] Care team information Care Team Personnel Name: Rapheal WILDER, Ijeoma Toth Position: S Physician - Primary Care Member Role: PCP Address: Address: [address] [place] [address] Adult [place] [address]- Care Team Related Persons Name: TAZ BATES Address: home [address] [place] [address]
--- OUTSIDE RECORDS SUMMARY | 2024-02-27 23:29 | XMS_ITS | Continuity of Care Document ---
Author Organization [facility] Address [address] [place] [address]- Care Team Providers Care Foil Spinner Name Role Phone Raphael WILDER, Ijeoma Toth Primary Care Physician [facility]counter [facility] Date(s): 11/15/21 - 11/22/21 [facility] [address] [place], [place] [address] Attending Physician: Ijeoma Lim MD Allergies, [...] 2 patch, 0 Refills,Maintenance, 01/28/21 17:24:00 EDT, [facility]/pharmacy #[id number], Partial fill upon patient request [...] 05/12/21 16:35:00 EDT, Route to Pharmacy [facility]ically, [id number], Partial fill upon patient request if [...] oldest [Reference Range]: 1 Height 152.40 cm (11/15/21 9:29 AM) Weight 74.2 kg (11/15/21 9:29 AM) Oxygen Saturation [94-100 %] 100 % (11/15/21 9:29 AM) Pulse Rate [55-90 bpm] 67 bpm (11/15/21 9:29 AM) Body Mass Index [18.5-24.99] 31.95 *>HHI* (11/15/21 9:29 AM) Blood Pressure [90-138/55-84 mm Hg] 136/ 70mm Hg (11/15/21 9:29 AM) Temperature [96.8-100.4 DegF] 98.1 DegF (11/15/21 9:29 AM) Mode of Delivery (Oxygen) Room air (11/15/21 9:29 AM) Blood pressure sites Arm, left (11/15/21 9:29 AM) Temperature Route Temporal (11/15/21 9:29 AM) Weight Obtained Via Standing scale (11/15/21 9:29 AM) Social History Social History Type Response Smoking Status Never smoker; Tobacc o user in household: No entered on: 10/01/17 Sex
--- OUTSIDE RECORDS SUMMARY | 2024-02-27 23:29 | XMS_ITS | Continuity of Care Document ---
Author Organization [facility] Address [address] [place] [address]- Care Team Providers Care Raspberry Checker Name Role Phone Ijeoma Lim MD Primary Care Physician [phone] Encounter [facility] Date(s): 03/08/22 - 04/07/22 [facility] [address] [place], [place] [address] Allergies, Adverse Reactions, Alerts Substance Reaction Severity [...] 14:40:00 EST, Route to Pharmacy Electronically, [facility], 152.4, cm, 07/12/21 14:27:00 EDT, [...] Maintenance, 01/11/22 15:35:00 EDT, Tablet, [facility]/pharmacy #[id number], Partial fill upon patient [...]
--- OUTSIDE RECORDS SUMMARY | 2024-02-27 23:30 | XMS_ITS | Continuity of Care Document ---
Author Organization [facility] Address [address] [place] [address]- Care Team Providers Care Solaris Administrator Name Role Phone Ijeoma Lim MD Primary Care Physician Encounter [facility] Date(s): 05/07/23 - 06/06/23 [facility] [address] [place] [address] [[email or web address]] Allergies, Adverse Reactions, [...] acel(Tdap) 12/27/17 Given 1Result Comment: Done at [employer] 2Result Comment: Done at work Medications chlorthalidone 25 mg oral tablet 25 mg, 1, tablet, By Mouth, Daily, # 90 tablet, Refills 3, Tot. Refills 3, Maintenance, 08/13/22 12:20:00 EDT, Route to Pharmacy Electronically, [facility]/pharmacy #[id number], 152.4, cm, 08/10/22 [...] 3 Refills, Maintenance, 01/11/22 15:35:00 EDT, Tablet, [facility]/pharmacy #[id number], Partial fill upon patient request if the prescription is for a schedule II opioid drug., 152.4, cm, 01/11/22 15:23:00... Start Date: 01/11/22 Status: Ordered FLUoxetine 10 mg oral capsule 10 mg, 1, capsule, By Mouth, Daily, # 90 capsule, Refills 1, Tot. Refills 1, Maintenance, 03/06/23 9:30:00 EDT, Route to Pharmacy Electronically, [facility]/pharmacy #[id number], Partial fill upon [...] 05/06/23 10:17:00 EDT, Route to Pharmacy Electronically, [facility]/pharmacy #[id number], 100 mg tab on backorder, 152.4, cm, 05/06/23 9:42:00 EDT, Height, 75.6, kg, 05/14/22 7... Start Date: 05/06/23 Stop Date: 04/30/24 Status: Ordered montelukast 10 mg oral tablet 10 mg, 1, tablet, By Mouth, Daily, # 90 tablet, Refills 3, Tot. Refills 3, Maintenance, 05/06/23 10:17:00 EDT, Route to Pharmacy Electronically, [facility]/pharmacy #[id number], Partial fill upon patient request if the prescription is for a schedule II opioid drug... Start Date: 05/06/23 Stop Date: 04/30/24 Status: Ordered potassium chloride 20 mEq oral tablet, extended release 1 tablet = 20 mEq, By Mouth, Daily, # 30 tablet, 1 Refills, Maintenance, 05/11/23 22:39:00 EDT, ER Tablet, [facility]/pharmacy #[id number], Partial fill upon patient request if the prescription is for a schedule II opioid drug., 152.4, cm, 05/06/23 9:42:00 EDT, He... Start Date: 05/11/23 Stop Date: 07/10/23 Status: Ordered rosuvastatin 20 mg oral tablet 1 tablet, By Mouth, Daily, # 90 tablet, 3 Refills, Maintenance, 01/09/23 9:26:00 EDT, [facility]/pharmacy #[id number], 152.4, cm, 01/09/23 8:53:00 EDT, Height, 75.6, kg, 05/14/22 7:15:00 EDT, Dry Weight Start Date: 01/09/23 Status: Ordered Vitamin D3 1000 intl units oral capsule 1 capsule = 1,000 International_Units, By Mouth, Daily, # 90 capsule, 3 Refills, Maintenance, 01/09/23 9:26:00 EDT, Capsule, [facility]/pharmacy #[id number], 152.4, cm, 01/09/23 [...] Team Personnel Name: Michelle LIN, Bailee Position: [facility] AMB Nurse Member Role: Primary Care Nurse Name: Raphael WILDER, Ijeoma Toth Position: [facility] Physician - Primary Care Member Role: PCP Address: Address: [address] [place] [address] Adult & [place] [address]- Care Team Related Persons Name: BATES TAZ Address: [address] [place] [address]
--- OUTSIDE RECORDS SUMMARY | 2024-02-27 23:30 | XMS_ITS | Continuity of Care Document ---
Author Organization [facility] Address [address] [place] [address]- Care Team Providers Care Nurse Informaticist Name Role Phone Raphael WILDER, Ijeoma Toth Primary Care Physician [phone] Encounter [facility] Date(s): 07/26/21 - 08/25/21 [facility] [address] [place] [id number] Allergies, Adverse Reactions, Alerts Substance [...] 15:00:00 EDT, Inhaler, Route to Pharmacy Electronically, [id number], [facility]/pharmacy #[id number], 152.4, cm, 07/12/21 14:27:00 EDT, H... Start Date: 07/12/21 Status: Ordered Teodora 0.1 mg/24 hours twice weekly transdermal film, extended release See Instructions, 0.1 mg estradiol patch transdermal, reapply every 72 hours, # 2 patch, 0 Refills,Maintenance, 01/28/21 17:24:00 EDT, [facility]/pharmacy #[id number], Partial fill upon patient request if the prescription is for a schedule II opioid drug., 152.4,... Start Date: 01/28/21 Status: Ordered chlorthalidone 25 mg oral tablet 25 mg, 1, tablet, By Mouth, Daily, # 90 tablet, Refills 3, Tot. Refills 3, Maintenance, 07/12/21 15:00:00 EDT, Route to Pharmacy Electronically, [facility]/pharmacy #[id number], 152.4, cm, 07/12/21 14:27:00 EDT, Height, 75.9, kg, 05/12/21 16:11:00 EDT, Dry Weight Start Date: 07/12/21 Stop Date: 07/07/22 Status: Ordered levothyroxine 125 mcg (0.125 mg) oral tablet 1 tablet = 125 mcg, By Mouth, Daily, # 30 tablet, 11 Refills, Maintenance, 06/05/21 8:04:00 EDT, Tablet, [facility]/pharmacy #[id number], Partial fill upon patient request if the prescription is for a schedule IIopioid drug., 152.4, cm, 06/05/21 7:52:00 EDT, Heig... Start Date: 06/05/21 Stop Date: 05/31/22 Status: Ordered losartan 50 mg oral tablet 50 mg, 1, tablet, By Mouth, Daily, # 90 tablet, Refills 3, Tot. Refills 3, Maintenance, 07/12/21 15:00:00 EDT, Route to Pharmacy Electronically, [facility]/pharmacy #[id number], 100 mg tab on backorder, 152.4, cm, 07/12/21 14:27:00 EDT, Height, 75.9, kg, 05/12/21... Start Date: 07/12/21 Stop Date: 07/07/22 Status: Ordered omeprazole 20 mg oral enteric coated capsule 1 capsule = 20 mg, By Mouth, Daily, # 90 capsule, 3 Refills, Maintenance, 07/12/21 15:00:00 EDT, ECCapsule, [facility]/pharmacy #[id number], 152.4, cm, 07/12/21 14:27:00 EDT, Height, 75.9, kg, 05/12/21 16:11:00 EDT, Dry Weight Start Date: 07/12/21 Status: Ordered pravastatin 40 mg oral tablet 1 tablet = 40 mg, By Mouth, Daily, # 30 tablet, 5 Refills, Maintenance, 07/26/20 10:27:00 EDT, Tablet, [facility]/pharmacy #[id number], 152, cm, 07/26/20 10:00:00 EDT, Height, 67.27, kg, 01/26/19 8:44:00 EDT, DryWeight Start Date: 07/26/20 Status: Ordered simethicone 80 mg oral tablet, chewable 80 mg, Chew, 5 times a day, PRN, For Gaseous Distention/Discomfort, # 90 tablet, Refills 0, Tot. Refills 0, Maintenance, Other, 05/12/21 16:35:00 EDT, Route to Pharmacy Electronically, [facility]/pharmacy #[id number], Partial fill upon patient request if the presc... Start Date: 05/12/21 Status: Ordered Vitamin D3 1000 intl units oral capsule 1 capsule = 1,000 International_Units, By Mouth, Daily, # 90 capsule, 3 Refills, Maintenance, 07/12/21 15:00:00 EDT, Capsule, [facility]/pharmacy #[id number], 152.4, cm, 07/12/21 14:27:00 EDT, [...]
--- OUTSIDE RECORDS SUMMARY | 2024-02-27 23:30 | XMS_ITS | Continuity of Care Document ---
Author Organization [facility] Address [address] [place] [address]- Care Team Providers Care Religious Ritual Slaughterer Name Role Phone Ijeoma Lim MD Primary Care Physician Encounter [facility] Date(s): 05/06/23 - 05/13/23 [facility] [address] [place], [place] [address] Attending Physician: Ijeoma Lim MD Allergies, [...] 05/08/23 16:48:00 EDT, Route to [facility]acy [facility]ically, [id number], Partial fill upon patient request i... Start Date: 05/08/23 Stop Date: 05/25/23 Status: Ordered chlorthalidone 25 mg oral tablet 25 mg, 1, tablet, By Mouth, Daily, # 90 tablet, Refills 3, Tot. Refills 3, Maintenance, 08/13/22 12:20:00 EDT, Route to Pharmacy Electronically, [facility]/pharmacy #[id number], 152.4, cm, 08/10/22 15:55:00 EDT, Height, [...] 3 Refills, Maintenance, 01/11/22 15:35:00 EDT, Tablet, [facility]/pharmacy #[id number], Partial fill upon patient request if the prescription is for a schedule II opioid drug., 152.4, cm, 01/11/22 15:23:00... Start Date: 01/11/22 Status: Ordered FLUoxetine 10 mg oral capsule 10 mg, 1, capsule, By Mouth, Daily, # 90 capsule, Refills 1, Tot. Refills 1, Maintenance, 03/06/23 9:30:00 EDT, Route to Pharmacy Electronically, [facility]/pharmacy #[id number], Partial fill upon patient requestif the [...] 05/08/23 16:48:00 EDT, Route to Pharmacy Electronically, [facility]/pharmacy #[id number], Partial fill... Start Date: 05/08/23 Stop [...] 10:17:00 EDT, Route to Pharmacy Electronically, [facility]/pharmacy #[id number], 100 mg tab on backorder, 152.4, cm, 05/06/23 9:42:00 EDT, Height, 75.6, kg, 05/14/22 7... Start Date: 05/06/23 Stop Date: 04/30/24 Status: Ordered montelukast 10 mg oral tablet 10 mg, 1, tablet, By Mouth, Daily, # 90 tablet, Refills 3, Tot. Refills 3, Maintenance, 05/06/23 10:17:00 EDT, Route to Pharmacy Electronically, [facility]/pharmacy #[id number], Partial fill upon patient request if the prescription is for a schedule II opioid drug... Start Date: 05/06/23 Stop Date: 04/30/24 Status: Ordered potassium chloride 20 mEq oral tablet, extended release 1 tablet = 20 mEq, By Mouth, Daily, # 30 tablet, 1 Refills, Maintenance, 05/11/23 22:39:00 EDT, ER Tablet, [facility]/pharmacy #[id number], Partial fill upon patient request if the prescription is for a schedule II opioid drug., 152.4, cm, 05/06/23 9:42:00 EDT, He... Start Date: 05/11/23 Stop Date: 07/10/23 Status: Ordered rosuvastatin 20 mg oral tablet 1 tablet, By Mouth, Daily, # 90 tablet, 3 Refills, Maintenance, 01/09/23 9:26:00 EDT, [facility]/pharmacy #[id number], 152.4, cm, 01/09/23 8:53:00 EDT, Height, [...] recent to oldest [Reference Range]: 1 Height 152.4 cm (05/06/23 9:42 AM) Weight 77.3 kg (05/06/23 9:42 AM) Oxygen Saturation [94-100 %] 99 % (05/06/23 9:42 AM) Pulse Rate [55-90 bpm] 63 bpm (05/06/23 9:42 AM) Body Mass Index [18.5-24.99 kg/m2] 33.28 kg/m2 *>HHI* (05/06/23 9:42 AM) Blood Pressure [90-138/55-84 mm Hg] 114/ 75mm Hg (05/06/23 9:42 AM) Mode of Delivery (Oxygen) Room air (05/06/23 9:42 AM) Blood pressure sites Arm, left (05/06/23 9:42 AM) Social History Social History Type Response Smoking Status Never smoker; Tobacc o user in household: No entered on: 10/01/17 Sex Note * Amanda Duran: PERFORM, SIGN, VERIFY Event Display: Patient Education/Instruction Authored Date: [id number] [facility] *[facility] Adult [facility] Clinical Summary Name ANTONI DRUMMOND Age 52 Years 1970 PCP Ijeoma Lim MD PCP Visit Date 05/06/2023 09:30:00 Patient Instructions potassium rich diet check potassium level today and again in 3-4 wekes, to make sure it is normal. Additional Instructions: Scheduled Appointments?? Future Appointments ?[facility] ?[address],??[place],??[address] ?Phone:??[phone]?Fax:??-- ?Appt. Date:??05/16/2023?11:15 AM ?Scheduled Provider:??[facility] ?[facility] ?[address],??[place],??[address] ?Phone:??[phone]?Fax:??-- ?Appt. Date:??05/17/2023?2:45 PM ?Scheduled Provider:??[facility] US Rm 4 ?[facility] ?Phone:??--?Fax:??-- ?Appt. Date:??05/30/2023?11:20 AM ?Scheduled Provider:??[facility] Nurse Follow-Up Instructions ?? Diagnosis Hypokalemia; Essential (primary) hypertension; Reaction to severe stress, unspecified Medications: Please continue your medications until treatment is completed or stopped by your provider. Discuss any questions related to medications with your provider. Medications to Continue Taking That Have Changed [id number], [address] [place] [id number], [phone] - Montelukast (montelukast 10 mg oral tablet) 1 tab(s) Oral Daily for 90 Days. Refills: 3. Next Dose: Medications to Continue with No Changes [id number], [address] [place] [id number], [phone] Losartan (losartan 50 mg oral tablet) 1 tab(s) Oral Daily for 90 Days. Refills: 3. Next Dose: These medications were not printed or sent to your pharmacy Aspirin (aspirin 81 mg oral delayed release tablet) 1 tab(s) Oral Daily. Next Dose: Chlorthalidone (chlorthalidone 25 mg oral tablet) 1 tab(s) Oral Daily for 90 Days. Refills: 3. Next Dose: Cholecalciferol (Vitamin D3 1000 intl units oral capsule) 1 capsule Oral Daily for 90 Days. Refills: 3. Next Dose: Estradiol (Estrace 1 mg oral tablet) 1 tab(s) Oral Daily. Next Dose: Famotidine (famotidine 40 mg oral tablet) 1 tab(s) Oral Daily at Bedtime. Refills: 3. Next Dose: Fluoxetine (FLUoxetine 10 mg oral capsule) 1 capsule Oral Daily for 90 Days. Refills: 1. Next Dose: Levothyroxine (levothyroxine 150 mcg (0.15 mg) oral tablet) 1 tablet By Mouth 6 days weekly and 0.5tabs on the 7th day.. Refills: 11. Next Dose: Rosuvastatin (rosuvastatin 20 mg oral tablet) 1 tab(s) Oral Daily. Refills: 3. Next Dose: Sucralfate (Carafate 1 gm oral tablet) 1 tab(s) Oral twice a day. Refills: 0. Next Dose: Allergy Info:?? Latex; penicillin Medications Given This Visit Future Orders ?No future orders Vital Signs Height 152.4 cm Weight 77.3 kg BMI 33.28 kg/m2 Blood Pressure 114 mm Hg/75 mm Hg Temperature Pulse Rate 63 bpm Respiratory Rate 02 Sat Mode of Delivery 99 %/Room air You can now view a summary of your hospital visit from the comfort of your home through a free online portal called [employer]. [employer] is a website that allows you to securely view your medical information including discharge summary, medications and follow-up visits. ??You can alsosend a secure electronic message to your doctor???s office to request appointments, renew medications or just ask a question. You can enroll at [email or web address] or register during your next office visit. Disclaimer:?? The information provided is of a general nature and is intended to be used in conjunction with the recommendations and advice of your health care practitioner. ??Every effort has been made to ensure that the information provided is accurate and complete at the time it is provided to you however, as your needs change, or, as new ??information becomes available, different or additional instructions may be required. If you have questions, please consult with your primary care provider or pharmacist, as appropriate. ??This information is not intended to serve as substitution for assessment and evaluation by a qualified health care provider. If you do not have a primary care provider, you may find a [facility] provider by calling [facility] [employer] at [phone]. For information about the plan of care including goals and instructions for your diagnosis, please see the patient education orders section of this document. Patient Education Materials?? The content of this educational material or handout may have been modified, supplemented, or adapted from its original content and format to support your individualized medical care. Patient Care team information Care Team Personnel Name: Michelle LIN, Bailee Position: [facility] AMB Nurse Member Role: Primary Care Nurse Name: Raphael WILDER, Ijeoma Toth Position: [facility] Physician - Primary Care Member Role: PCP Address: Address: [address] [place] [address] Adult & [place] [address]- Care Team Related Persons Name: TAZ BATES Address: home [address] [place] [address]
--- OUTSIDE RECORDS SUMMARY | 2024-02-27 23:30 | XMS_ITS | Continuity of Care Document ---
Author Organization [facility] Address [address] [place] [address]- Care Team Providers Care Classer Name Role Phone Ijeoma Lim MD Primary Care Physician Encounter [facility] Date(s): 10/01/22 - 10/31/22 [facility] [address] [place], [place] [address] Allergies, Adverse Reactions, Alerts Substance Reaction [...] acel(Tdap) 12/27/17 Given 1Result Comment: Done at [employer] 2Result Comment: Done at work Medications aspirin [...] 09/24/22 16:52:00 EST, [id number] Partial fill upon patient request if the prescription is for a schedule II opi... Start Date: 09/24/22 Status: Ordered chlorthalidone 25 mg oral tablet 25 mg, 1, tablet, By Mouth, Daily, # 90 tablet, Refills 3, Tot. Refills 3, Maintenance, 08/13/22 12:20:00 EDT, Route to Pharmacy Electronically, [facility]/pharmacy #[id number], 152.4, cm, 08/10/22 15:55:00 EDT, Height, 75.6, kg, 05/14/22 7:15:00 EDT, Dry Weight Start Date: 08/13/22 Stop Date: 08/08/23 Status: Ordered cyclobenzaprine 10 mg oral tablet 1, tablet, By Mouth, 3 times a day, # 10 tablet, Refills 1, Maintenance, 08/27/22 7:59:00 EST, Route to Pharmacy Electronically, [id number], 152.4, cm, 08/10/22 15:55:00 EDT, Height, 75.6, [...] Refills, Maintenance, 01/11/22 15:35:00 EDT, Tablet, [facility]/pharmacy #[id number], Partial fill upon patient request if the prescription is for a schedule II opioid drug., 152.4, cm, 01/11/22 15:23:00... Start Date: 01/11/22 Status: Ordered levothyroxine 0.137 mg oral tablet See Instructions, 1 tablet By Mouth 6 days per week and 1/2 pill on day 7, # 90 each, 3 Refills, Maintenance, 07/20/22 8:57:00 EDT, Tablet, [facility]/pharmacy #[id number], Partial fill upon patient request if the prescription is for a schedule II opioid drug., 15... Start Date: 07/20/22 Status: Ordered losartan 50 mg oral tablet 50 mg, 1, tablet, By Mouth, Daily, # 90 tablet, Refills 3, Tot. Refills 3, Maintenance, 04/26/22 15:42:00 EDT, Route to Pharmacy Electronically, [facility]/pharmacy #[id number], 100 mg tab on backorder, 152.4, cm, 03/30/22 13:46:00 EDT, Height, 73.5, kg, 12/12/21... Start Date: 04/26/22 Stop Date: 04/21/23 Status: Ordered rosuvastatin 20 mg oral tablet 1 tablet, By Mouth, Daily, # 90 tablet, 1 Refills, Maintenance, 07/18/22 17:23:00 EDT, [facility]/pharmacy#0693, 152.4, cm, 06/28/22 16:41:00 EDT, Height, 75.6, kg, 05/14/22 7:15:00 EDT, Dry Weight Start Date: 07/18/22 Status: Ordered Vitamin D3 1000 intl units oral capsule 1 capsule = 1,000 International_Units, By Mouth, Daily, # 90 capsule, 1 Refills, Maintenance, 07/17/22 19:46:00 EDT, Capsule, [facility]/pharmacy #[id number], 152.4, cm, 06/28/22 16:41:00 EDT, Height, [...] team information Care Team Personnel Name: Michelle RN, Bailee Position: [facility] AMB Nurse Member Role: Primary Care Nurse Name: Raphael WILDER, Ijeoma Toth Position: [facility] Primary Care Physician Member Role: PCP Address: Address: [address] [place] [address] Adult & [place] [address]- Care Team Related Persons Name: TAZ BATES Address: home [address] [place] [address]
--- OUTSIDE RECORDS SUMMARY | 2024-02-27 23:30 | XMS_ITS | Continuity of Care Document ---
Author Organization [facility] Kira isidoro Address [address] [place] [address] ve [address] [place] [address]- Care Team Providers Care Substitute School Nurse Name Role Phone Ijeoma Lim MD Primary Care Physician Encounter [facility] Date(s): 01/08/22 - 02/07/22 [facility] [address] [place], [place] [address] Allergies, Adverse [...] 3 Refills, Maintenance, 01/11/22 15:35:00 EDT, Tablet, [facility]/pharmacy #[id number], Partial fill upon [...]
--- OUTSIDE RECORDS SUMMARY | 2024-02-27 23:30 | XMS_ITS | Continuity of Care Document ---
Author Organization [facility] Address [address] [place] [address]- Care Team Providers Care Systems Accountant Name Role Phone Raphael WILDER, Ijeoma Toth Primary Care Physician [facility] Date(s): 08/[facility]/22 - 09/05/22 [facility] [address] [place], [place] [address] Allergies, Adverse Reactions, Alerts Substance [...] acel(Tdap) 12/27/17 Given 1Result Comment: Done at [employer] 2Result Comment: Done at work Medications aspirin [...] EDT, Route to Pharmacy Electronically, [facility]/pharmacy #[id number], 152.4, cm, 08/10/22 15:55:00 EDT, Height, 75.6, kg, 05/14/22 7:15:00 EDT, Dry Weight Start Date: 08/13/22 Stop Date: 08/08/23 Status: Ordered cyclobenzaprine 10 mg oral tablet 1, tablet, By Mouth, 3 times a day, # 10 tablet, Refills 1, Maintenance, 08/27/22 7:59:00 EST, Route to Pharmacy Electronically, [facility] STORE [id number], 152.4, cm, 08/10/22 15:55:00 EDT, Height, 75.6, [...] 3 Refills, Maintenance, 07/20/22 8:57:00 EDT, Tablet, [facility]/pharmacy #[id number], Partial fill upon patient request if the prescription is for a schedule II opioid drug., 15... Start Date: 07/20/22 Status: Ordered losartan 50 mg oral tablet 50 mg, 1, tablet, By Mouth, Daily, # 90 tablet, Refills 3, Tot. Refills 3, Maintenance, 04/26/22 15:42:00 EDT, Route to Pharmacy Electronically, [facility]/pharmacy #[id number], 100 mg tab on backorder, 152.4, cm, 03/30/22 13:46:00 EDT, Height, 73.5, kg, 12/12/21... Start Date: 04/26/22 Stop Date: 04/21/23 Status: Ordered rosuvastatin 20 mg oral tablet 1 tablet, By Mouth, Daily, # 90 tablet, 1 Refills, Maintenance, 07/18/22 17:23:00 EDT, [facility]/pharmacy#[id number], 152.4, cm, 06/28/22 16:41:00 EDT, Height, 75.6, kg, 05/14/22 7:15:00 EDT, Dry Weight Start Date: 07/18/22 Status: Ordered Vitamin D3 1000 intl units oral capsule 1 capsule = 1,000 International_Units, By Mouth, Daily, # 90 capsule, 1 Refills, Maintenance, 07/17/22 19:46:00 EDT, Capsule, [facility]/pharmacy #[id number], 152.4, cm, 06/28/22 16:41:00 EDT, Height, [...] Team Personnel Name: Michelle LIN, Bailee Position: [facility] Nurse Member Role: Primary Care Nurse Name: Ijeoma Lim MD Position: [facility] Primary Care Physician Member Role: PCP Address: Address: [address] [place] [address] Adult & Pediatric [address] Care Team Related Persons Name: TAZ BATES Address: home [address] [place] [address]
--- OUTSIDE RECORDS SUMMARY | 2024-02-27 23:30 | XMS_ITS | Continuity of Care Document ---
Author Organization [facility] Address [address] [place] [address]- Care Team Providers Care Mail Deliverer Name Role Phone Ijeoma Lim MD Primary Care Physician [phone] Encounter [facility] [place] Date(s): 12/26/20 - 01/25/21 [facility] [address] [place], [place] [address] Allergies, Adverse Reactions, Alerts Substance [...] 13:54:00 EDT, Inhaler, Route to Pharmacy Electronically, [id number], [id number], 152, cm, 01/18/20 9:51:00 EDT, [place]... Start Date: 02/12/20 Status: Ordered chlorthalidone 25 mg oral tablet 25 mg, 1, tablet, By Mouth, Daily, # 90 tablet, Refills 3, Tot. Refills 3, Maintenance, 07/07/20 14:00:00 EDT, Route to Pharmacy Electronically, [id number], 152, cm, 03/16/20 15:37:00 EDT, [...] tablet, 1 Refills, Maintenance, 12/20/20 13:28:00 EST, [id number], labs needed, 152, cm, 09/14/20 10:51:00 EST, Height, 67.27, kg, 01/26/19 8:44:00 EDT, Dry Weight Start Date: 12/20/20 Status: Ordered losartan 50 mg oral tablet 50 mg, 1, tablet, By Mouth, Daily, # 90 tablet, Refills 3, Tot. Refills 3, Maintenance, 01/21/20 9:57:00 EDT, Route to Pharmacy Electronically, [facility]/pharmacy #[id number], 100 mg tab on backorder, 152, [...]
--- OUTSIDE RECORDS SUMMARY | 2024-02-27 23:30 | XMS_ITS | Continuity of Care Document ---
Author Organization [facility] Address [address] [place] [address]- Care Team Providers Care Rail Operator Name Role Phone Raphael WILDER, Ijeoma Toth Primary Care Physician [phone] Encounter [facility] Date(s): 03/04/23 - 04/03/23 [facility] [address] [place], [place] [address] Allergies, Adverse Reactions, Alerts Substance [...] acel(Tdap) 12/27/17 Given 1Result Comment: Done at [employer] 2Result Comment: Done at work Medications aspirin [...] 09/24/22 16:52:00 EST, Route to Pharmacy Electronically, [facility]/pharmacy #[id number], Partial fill upon patient request if the prescription is for a schedule II opi... Start Date: 09/24/22 Status: Ordered chlorthalidone 25 mg oral tablet 25 mg, 1, tablet, By Mouth, Daily, # 90 tablet, Refills 3, Tot. Refills 3, Maintenance, 08/13/22 12:20:00 EDT, Route to Pharmacy Electronically, [facility]/pharmacy #[id number], 152.4, cm, 08/10/22 15:55:00 EDT, Height, 75.6, kg, 05/14/22 7:15:00 EDT, Dry Weight Start Date: 08/13/22 Stop Date: 08/08/23 Status: Ordered doxycycline hyclate 100 mg oral capsule 1 capsule = 100 mg, By Mouth, Every 12 hours, for 10 days, may take with food to minimize abdominaldiscomfort, # 20 capsule, 0 Refills, Acute 04/04/23 15:40:00 EDT, 03/25/23 15:40:00 EDT, Capsule, [facility]/pharmacy #[id number], Partial fill upon patient request... Start Date: 03/25/23 Stop Date: 04/04/23 Status: Ordered Estrace 1 mg oral tablet [...] 3 Refills, Maintenance, 01/11/22 15:35:00 EDT, Tablet, [facility]/pharmacy #[id number], Partial fill upon patient request if the prescription is for a schedule II opioid drug., 152.4, cm, 01/11/22 15:23:00... Start Date: 01/11/22 Status: Ordered FLUoxetine 10 mg oral capsule 10 mg, 1, capsule, By Mouth, Daily, # 90 capsule, Refills 1, Tot. Refills 1, Maintenance, 03/06/23 9:30:00 EDT, Route to Pharmacy Electronically, [facility]/pharmacy #[id number], Partial fill upon patient requestif the [...] 04/26/22 15:42:00 EDT, Route to Pharmacy Electronically, [facility]/pharmacy #[id number], 100 mg tab on backorder, 152.4, cm, 03/30/22 13:46:00 EDT, Height, 73.5, kg, 12/12/21... Start Date: 04/26/22 Stop Date: 04/21/23 Status: Ordered montelukast 10 mg oral tablet 10 mg, 1, tablet, By Mouth, Daily, # 30 tablet, Refills 1, Tot. Refills 1, Maintenance, 03/06/23 9:29:00 EDT, Route to Pharmacy Electronically, [facility]/pharmacy #[id number], Partial fill upon patient request if [...] Team Personnel Name: Bailee Martinez RN Position: [facility] AM[facility] Nurse Member Role: Primary Care Nurse Name: Ijeoma Lim MD Position: [facility] Physician - Primary Care Member Role: PCP Address: Address: [address] [place] [address] Adult [place] [address]- Care Team Related Persons Name: TAZ BATES Address: home [address] [place] [address]
--- OUTSIDE RECORDS SUMMARY | 2024-02-27 23:30 | XMS_ITS | Continuity of Care Document ---
Author Organization [facility] Address [address] [place] [address]- Care Team Providers Care Site Damage Prevention Technician Name Role Phone Ijeoma Lim MD Primary Care Physician Encounter [facility] [place] Date(s): 09/16/23 - 10/16/23 [facility] [address] [place], [place] [address] Allergies, Adverse Reactions, Alerts Substance Reaction [...] acel(Tdap) 12/27/17 Given 1Result Comment: Done at [employer] 2Result Comment: Done at work Medications barium sulfate 2% oral suspension See Instructions, dispense 2 bottles 1st bottle 6 hrs before & 2nd bottle [address], # 2each, 0 Refills, Maintenance, 09/13/23 9:28:00 EST, [id number], Partial fill upon patient request if the prescription is for a schedule II opioid... Start Date: 09/13/23 Status: Ordered chlorthalidone 25 mg oral tablet 1, tablet, By Mouth, Daily, # 90 tablet, Refills 1, Maintenance, 08/20/23 0:15:00 EDT, Route to [facility]ically, [id number], 152, cm, 08/01/23 10:56:00 EDT, Height, 76.8, kg, 05/16/23 10:20:00 EDT, Dry Weight Start Date: 08/20/23 Status: Ordered docusate sodium 100 mg oral capsule 100 mg, 1, capsule, By Mouth, 2 times a day, # 60 capsule, Refills 1, Tot. Refills 1, Maintenance, 09/13/23 9:07:00 EST, Route to Pharmacy Electronically, [facility]/pharmacy #[id number], Partial fill upon patient [...] EDT, Route to [facility]acy Electronically, [facility], 152, cm, 08/01/23 10:56:00 EDT, Height, 76.8, kg, 05/16/23 10:20:00 EDT, Dry Weight Start Date: 08/24/23 Status: Ordered fluticasone 50 mcg/inh nasal spray 1 sprays, Nares, Both, 2 times a day, # 16 Gm, 0 Refills, Maintenance, 08/01/23 11:21:00 EDT, Aguirre, [facility]/pharmacy #[id number], Partial fill upon patient request if the prescription is for a schedule II opioid drug., 1 sprays Nares, Both 2 times a day, 152,... Start Date: 08/01/23 Status: Ordered levothyroxine 0.137 mg oral tablet 1 tablet = 137 mcg, By Mouth, Daily, # 60 tablet, 6 Refills, Maintenance, 09/16/23 19:32:00 EST, Tablet, [facility]/pharmacy #[id number], Partial fill upon patient request if the prescription is for a schedule IIopioid drug., 152, cm, 09/13/23 8:42:00 EST, Height... Start Date: 09/16/23 Stop Date: 11/09/24 Status: Ordered losartan 50 mg oral tablet 50 mg, 1, tablet, By Mouth, Daily, # 90 tablet, Refills 3, Tot. Refills 3, Maintenance, 05/06/23 10:17:00 EDT, Route to Pharmacy Electronically, [facility]/pharmacy #[id number], 100 mg tab on backorder, 152.4, cm, 05/06/23 9:42:00 EDT, Height, 75.6, kg, 05/14/22 7... Start Date: 05/06/23 Stop Date: 04/30/24 Status: Ordered montelukast 10 mg oral tablet 10 mg, 1, tablet, By Mouth, Daily, # 90 tablet, Refills 3, Tot. Refills 3, Maintenance, 05/06/23 10:17:00 EDT, Route to Pharmacy Electronically, [facility]/pharmacy #[id number], Partial fill upon patient request if the prescription is for a schedule II opioid drug... Start Date: 05/06/23 Stop Date: 04/30/24 Status: Ordered omeprazole 40 mg oral enteric coated capsule 1 capsule = 40 mg, By Mouth, Daily, # 90 capsule, 3 Refills, Maintenance, 10/09/23 16:07:00 EST, ECCapsule, [facility]/pharmacy #[id number], Partial fill upon patient request if the prescription is for a schedule II opioid drug., 152, cm, 10/09/23 15:44:00 EST, H... Start Date: 10/09/23 Stop Date: 10/03/24 Status: Ordered rosuvastatin 20 mg oral tablet 1 tablet, By Mouth, Daily, # 90 tablet, 3 Refills, Maintenance, 01/09/23 9:26:00 EDT, [facility]/pharmacy #[id number], 152.4, cm, 01/09/23 8:53:00 [...] Primary Care Member Role: PCP Address: Address: [address] [place] [address] Adult & [place] [address]- Care Team Related Persons Name: TAZ BATES Address: home [address] [place] [address]
--- OUTSIDE RECORDS SUMMARY | 2024-02-27 23:30 | XMS_ITS | Continuity of Care Document ---
Author Organization [facility] Address [address] [place] [address] [address] [place] [address]- Care Team Providers Care Glass Inspector Name Role Phone Ijeoma Lim MD Primary Care Physician [facility] Date(s): 05/07/22 - 06/24/22 [facility] [address] [place], [place] [address] Attending Physician: Santos Zapata MD Allergies, Adverse Reactions, [...] acel(Tdap) 12/27/17 Given 1Result Comment: Done at [employer] 2Result Comment: Done at work Medications aspirin [...] 3 Refills, Maintenance, 01/11/22 15:35:00 EDT, Tablet, [facility]/pharmacy #[id number], Partial fill upon patient [...] 04/26/22 15:42:00 EDT, Route to Pharmacy Electronically, [facility]/pharmacy #[id number], 100 mg tab on [...] Personnel Name: Raphael WILDER, Ijeoma Toth Address: [address] [place] [address] Adult & Pediatric [address]
--- OUTSIDE RECORDS SUMMARY | 2024-02-27 23:30 | XMS_ITS | Continuity of Care Document ---
Author Organization [facility] Address [address] [place] [address]- Care Team Providers Care Supervisor Slitting And Shipping Name Role Phone Ijeoma Lim MD Primary Care Physician [facility] Date(s): 08/24/23 - 09/23/23 [facility] [address] [place], [place] [address] Allergies, Adverse Reactions, Alerts Substance [...] acel(Tdap) 12/27/17 Given 1Result Comment: Done at [employer] 2Result Comment: Done at work Medications barium sulfate 2% oral suspension See Instructions, dispense 2 bottles 1st bottle 6 hrs before & 2nd bottle [address], # 2each, 0 Refills, Maintenance, 09/13/23 9:28:00 EST, [facility]/pharmacy #[id number], Partial fill upon patient request if the prescription is for a schedule II opioid... Start Date: 09/13/23 Status: Ordered chlorthalidone 25 mg oral tablet 1, tablet, By Mouth, Daily, # 90 tablet, Refills 1, Maintenance, 08/20/23 0:15:00 EDT, Route to Pharmacy Electronically, [facility] STORE [id number], 152, cm, 08/01/23 10:56:00 EDT, Height, 76.8, kg, 05/16/23 10:20:00 EDT, Dry Weight Start Date: 08/20/23 Status: Ordered docusate sodium 100 mg oral capsule 100 mg, 1, capsule, By Mouth, 2 times a day, # 60 capsule, Refills 1, Tot. Refills 1, Maintenance, 09/13/23 9:07:00 EST, Route to Pharmacy Electronically, [facility]/pharmacy #[id number], Partial fill upon patient request if [...] 3 Refills, Maintenance, 01/11/22 15:35:00 EDT, Tablet, [facility]/pharmacy #[id number], Partial fill upon patient request if the prescription is for a schedule II opioid drug., 152.4, cm, 01/11/22 15:23:00... Start Date: 01/11/22 Status: Ordered FLUoxetine 10 mg oral capsule 1, capsule, By Mouth, Daily, # 90 capsule, Refills 1, Maintenance, 08/24/23 9:01:00 EDT, Route to [facility]acy [facility]ically, [facility], 152, cm, 08/01/23 10:56:00 EDT, Height, 76.8, kg, 05/16/23 10:20:00 EDT, Dry Weight Start Date: 08/24/23 Status: Ordered fluticasone 50 mcg/inh nasal spray 1 sprays, Nares, Both, 2 times a day, # 16 Gm, 0 Refills, Maintenance, 08/01/23 11:21:00 EDT, Mccune, [facility]/pharmacy #[id number], Partial fill upon patient request if the prescription is for a schedule II opioid drug., 1 sprays Nares, Both 2 times a day, 152,... Start Date: 08/01/23 Status: Ordered levothyroxine 0.137 mg oral tablet 1 tablet = 137 mcg, By Mouth, Daily, # 60 tablet, 6 Refills, Maintenance, 09/16/23 19:32:00 EST, Tablet, [facility]/pharmacy #[id number], Partial fill upon patient request if the prescription is for a schedule IIopioid drug., 152, cm, 09/13/23 8:42:00 EST, Height... Start Date: 09/16/23 Stop Date: 11/09/24 Status: Ordered losartan 50 mg oral tablet 50 mg, 1, tablet, By Mouth, Daily, # 90 tablet, Refills 3, Tot. Refills 3, Maintenance, 05/06/23 10:17:00 EDT, Route to Pharmacy Electronically, [facility]/pharmacy #[id number], 100 mg tab on backorder, 152.4, cm, 05/06/23 9:42:00 EDT, Height, 75.6, kg, 05/14/22 7... Start Date: 05/06/23 Stop Date: 04/30/24 Status: Ordered montelukast 10 mg oral tablet 10 mg, 1, tablet, By Mouth, Daily, # 90 tablet, Refills 3, Tot. Refills 3, Maintenance, 05/06/23 10:17:00 EDT, Route to Pharmacy Electronically, [facility]/pharmacy #[id number], Partial fill upon patient request if the prescription is for a schedule II opioid drug... Start Date: 05/06/23 Stop Date: 04/30/24 Status: Ordered rosuvastatin 20 mg oral tablet [...] Personnel Name: Raphael WILDER, Ijeoma Toth [facility] Physician - Primary Care Member Role: PCP Address: Address: [address] [place] [address] Adult & [place] [address]- Care Team Related Persons Name: TAZ BATES Address: home [address] [place] [address]
--- OUTSIDE RECORDS SUMMARY | 2024-02-27 23:30 | XMS_ITS | Continuity of Care Document ---
Author Organization [facility] Address [address] [place] [address]- Care Team Providers Care Hotel Clerk Name Role Phone Ijeoma Lim MD Primary Care Physician [place] [facility] Date(s): 06/18/23 - 07/18/23 [facility] [address] [place] [address] Allergies, Adverse Reactions, Alerts Substance [...] acel(Tdap) 12/27/17 Given 1Result Comment: Done at [employer] 2Result Comment: Done at work Medications chlorthalidone 25 mg oral tablet 25 mg, 1, tablet, By Mouth, Daily, # 90 tablet, Refills 3, Tot. Refills 3, Maintenance, 08/13/22 12:20:00 EDT, Route to Pharmacy Electronically, [facility]/pharmacy #[id number], 152.4, cm, 08/10/22 15:55:00 EDT, Height, [...] tablet See Instructions, 1 tablet By Mouth 5 days weekly and half tablet 0.5 tablet on the 6th day. as directed with plenty of water as a single daily dose before breakfast avoid antacids, calcium, or iron for at least 4 hrs before or 4 hrs after, # 30... Start Date: 06/18/23 Status: Ordered losartan 50 mg oral tablet 50 mg, 1, tablet, By Mouth, Daily, # 90 tablet, Refills 3, Tot. Refills 3, Maintenance, 05/06/23 10:17:00 EDT, Route to Pharmacy Electronically, [facility]/pharmacy #[id number], 100 mg tab on backorder, 152.4, cm, 05/06/23 9:42:00 EDT, Height, 75.6, kg, 05/14/22 7... Start Date: 05/06/23 Stop Date: 04/30/24 Status: Ordered montelukast 10 mg oral tablet 10 mg, 1, tablet, By Mouth, Daily, # 90 tablet, Refills 3, Tot. Refills 3, Maintenance, 05/06/23 10:17:00 EDT, Route to Pharmacy Electronically, [facility]/pharmacy #[id number], Partial fill upon patient request if the prescription is for a schedule II opioid drug... Start Date: 05/06/23 Stop Date: 04/30/24 Status: Ordered potassium chloride 20 mEq oral tablet, extended release 1 tablet = 20 mEq, By Mouth, Daily, # 30 tablet, 1 Refills, Maintenance, 05/11/23 22:39:00 EDT, ER Tablet, [facility]/pharmacy #[id number], Partial fill upon patient request if [...] 3 Refills, Maintenance, 01/09/23 9:26:00 EDT, Capsule, [facility]/pharmacy #[id number], 152.4, cm, 01/09/23 8:53:00 EDT, Height, [...] Personnel Name: Raphael WILDER, Ijeoma Toth Position: [facility] Physician - Primary Care Member Role: PCP Address: Address: [address] [place] [address] Adult [place] [address]- Care Team Related Persons Name: TAZ BATES Address: home [address] [place] [address]
--- OUTSIDE RECORDS SUMMARY | 2024-02-27 23:30 | XMS_ITS | Continuity of Care Document ---
Author Organization [facility] Address [address] [place] [address]- Care Team Providers Care Software Installer Name Role Phone Raphael WILDER, Ijeoma Toth Primary Care Physician [facility] Date(s): 11/20/22 - 12/20/22 [facility] [address] [place], [place] [address] Allergies, Adverse Reactions, Alerts Substance [...] acel(Tdap) 12/27/17 Given 1Result Comment: Done at [employer] 2Result Comment: Done at work Medications aspirin [...] 09/24/22 16:52:00 EST, [id number] Partial fill upon patient request if the prescription is for a schedule II opi... Start Date: 09/24/22 Status: Ordered chlorthalidone 25 mg oral tablet 25 mg, 1, tablet, By Mouth, Daily, # 90 tablet, Refills 3, Tot. Refills 3, Maintenance, 08/13/22 12:20:00 EDT, Route to Pharmacy Electronically, [facility]/pharmacy #[id number], 152.4, cm, 08/10/22 15:55:00 EDT, Height, 75.6, kg, 05/14/22 7:15:00 EDT, Dry Weight Start Date: 08/13/22 Stop Date: 08/08/23 Status: Ordered cyclobenzaprine 10 mg oral tablet 1, tablet, By Mouth, 3 times a day, # 10 tablet, Refills 1, Maintenance, 08/27/22 7:59:00 EST, Route to Pharmacy Electronically, [facility] STORE 66786, 152.4, cm, 08/10/22 15:55:00 EDT, Height, 75.6, [...] 3 Refills, Maintenance, 01/11/22 15:35:00 EDT, Tablet, [facility]/pharmacy #[id number], Partial fill upon patient request if the prescription is for a schedule II opioid drug., 152.4, cm, 01/11/22 15:23:00... Start Date: 01/11/22 Status: Ordered levothyroxine 150 mcg (0.15 mg) oral tablet 1 tablet = 150 mcg, By Mouth, Daily, # 30 tablet, 11 Refills, Maintenance, 11/01/22 13:39:00 EST, [facility]/pharmacy #[id number], Partial fill upon patient request if the prescription is for a schedule II opioiddrug., 152.4, cm, 08/10/22 15:55:00 EDT, Height, 75... Start Date: 11/01/22 Status: Ordered losartan 50 mg oral tablet 50 mg, 1, tablet, By Mouth, Daily, # 90 tablet, Refills 3, Tot. Refills 3, Maintenance, 04/26/22 15:42:00 EDT, Route to Pharmacy Electronically, [facility]/pharmacy #[id number], 100 mg tab on [...] 1 Refills, Maintenance, 07/17/22 19:46:00 EDT, Capsule, [facility]/pharmacy #[id number], 152.4, cm, 06/28/22 16:41:00 EDT, [...] Team Personnel Name: Michelle LIN, Bailee Position: [facility] Nurse Member Role: Primary Care Nurse Name: Raphael WILDER, Ijeoma Toth Position: [facility] Primary Care Physician Member Role: PCP Address: Address: [address] [place] [address] Adult [place] [address]- Care Team Related Persons Name: TAZ BATES Address: [address] [place] [address]
--- OUTSIDE RECORDS SUMMARY | 2024-02-27 23:30 | XMS_ITS | Continuity of Care Document ---
Author Organization [facility] Address [address] [place] [address]- Care Team Providers Care Supervisor Propellant Charge Loading Name Role Phone Raphael WILDER, Ijeoma Toth Primary Care Physician [facility] Date[facility]s): 10/09/22 - 11/08/22 [facility] [address] [place], [place] [address] Allergies, Adverse Reactions, [...] acel(Tdap) 12/27/17 Given 1Result Comment: Done at [employer] 2Result Comment: Done at work Medications aspirin [...] 09/24/22 16:52:00 EST, [id number], [facility] fill upon patient request [...] EST, Route to Pharmacy Electronically, [facility] STORE [address], 152.4, cm, 08/10/22 15:55:00 EDT, Height, 75.6, [...] tablet, 11 Refills, Maintenance, 11/01/22 13:39:00 EST, [facility]/pharmacy #[id number], [...] Maintenance, 07/17/22 19:46:00 EDT, Capsule, [facility]/pharmacy #[id number], 152.4, cm, 06/28/22 16:41:00 EDT, Height, [...] Team Personnel Name: Michelle LIN, Bailee Position: [facility] Nurse Member Role: Primary Care Nurse Name: Raphael WILDER, Ijeoma Toth Position: [facility] Primary Care Physician Member Role: PCP Address: Address: [address] [place] [address] Adult [place] [address]- Care Team Related Persons Name: TAZ BATES Address: home [address] [place] [address]
--- OUTSIDE RECORDS SUMMARY | 2024-02-27 23:30 | XMS_ITS | Continuity of Care Document ---
Author Organization [facility] Address [address] [place] [address]- Care Team Providers Care Quartz Orientator Name Role Phone Ijeoma Lim MD Primary Care Physician [place] [facility] [place]s): 03/19/23 - 04/18/23 [facility] [address] [place] [id number] Allergies, Adverse Reactions, Alerts Substance Reaction Severity [...] acel(Tdap) 12/27/17 Given 1Result Comment: Done at [employer] 2Result Comment: Done at work Medications aspirin [...] 09/24/22 16:52:00 EST, [facility], [facility] [...] each, 11 Refills, Maintenance, 11/01/22 13:39:00 EST, [facility]/pharmacy #[id number], Partial fill upon patient request if theprescription is for a schedule II opioid drug., 152... Start Date: 11/01/22 Status: Ordered losartan 50 mg oral tablet 50 mg, 1, tablet, By Mouth, Daily, # 90 tablet, Refills 3, Tot. Refills 3, Maintenance, 04/26/22 15:42:00 EDT, Route to Pharmacy Electronically, [facility]/pharmacy #[id number], 100 mg tab on backorder, 152.4, cm, 03/30/22 13:46:00 EDT, Height, 73.5, kg, 12/12/21... Start Date: 04/26/22 Stop Date: 04/21/23 Status: Ordered montelukast 10 mg oral tablet 10 mg, 1, tablet, By Mouth, Daily, # 30 tablet, Refills 1, Tot. Refills 1, Maintenance, 03/06/23 9:29:00 EDT, Route to Pharmacy Electronically, [facility]/pharmacy #[id number], Partial fill upon patient request if the prescription is for a schedule II opioid drug.... Start Date: 03/06/23 Stop Date: 05/05/23 Status: Ordered rosuvastatin 20 mg oral tablet 1 tablet, By Mouth, Daily, # 90 tablet, 3 Refills, Maintenance, 01/09/23 9:26:00 EDT, [facility]/pharmacy #[id number], 152.4, cm, [...] Team Personnel Name: Bailee Martinez RN Position: [facility] Nurse Member Role: Primary Care Nurse Name: Raphael WILDER, Ijeoma Toth Position: [facility] Physician - Primary Care Member Role: PCP Address: Address: [address] [place] [address] Adult & [place] [address]- Care Team Related Persons Name: TAZ BATES Address: home [address] [place] [address]
--- OUTSIDE RECORDS SUMMARY | 2024-02-27 23:30 | XMS_ITS | Continuity of Care Document ---
Author Organization [facility] Diabetes Address [address] [place] [address]- Care Team Providers Care Bat Person Name Role Phone Raphael WILDER, Ijeoma Toth Primary Care Physician [phone] Encounter [facility] Date(s): 11/01/22 - 12/01/22 [facility] Diabetes [address] [place] [id number] Allergies, Adverse Reactions, Alerts Substance [...] acel(Tdap) 12/27/17 Given 1Result Comment: Done at [employer] 2Result Comment: Done at work Medications aspirin [...] 09/24/22 16:52:00 EST, [id number] Partial fill upon patient request if the prescription is for a schedule II opi... Start Date: 09/24/22 Status: Ordered chlorthalidone 25 mg oral tablet 25 mg, 1, tablet, By Mouth, Daily, # 90 tablet, Refills 3, Tot. Refills 3, Maintenance, 08/13/22 12:20:00 EDT, Route to Pharmacy Electronically, [facility]/pharmacy #[id number], 152.4, cm, 08/10/22 15:55:00 EDT, Height, 75.6, kg, 05/14/22 7:15:00 EDT, Dry Weight Start Date: 08/13/22 Stop Date: 08/08/23 Status: Ordered cyclobenzaprine 10 mg oral tablet 1, tablet, By Mouth, 3 times a day, # 10 tablet, Refills 1, Maintenance, 08/27/22 7:59:00 EST, Route to Pharmacy Electronically, [facility]ORE [id number], 152.4, cm, 08/10/22 15:55:00 EDT, Height, 75.6, [...] 3 Refills, Maintenance, 01/11/22 15:35:00 EDT, Tablet, [facility]/pharmacy #[id number], Partial fill upon patient request if the prescription is for a schedule II opioid drug., 152.4, cm, 01/11/22 15:23:00... Start Date: 01/11/22 Status: Ordered levothyroxine 150 mcg (0.15 mg) oral tablet 1 tablet = 150 mcg, By Mouth, Daily, # 30 tablet, 11 Refills, Maintenance, 11/01/22 13:39:00 EST, [facility]/pharmacy #[id number], Partial fill upon patient request if the prescription is for a schedule II opioiddrug., 152.4, cm, 08/10/22 15:55:00 EDT, Height, 75... Start Date: 11/01/22 Status: Ordered losartan 50 mg oral tablet 50 mg, 1, tablet, By Mouth, Daily, # 90 tablet, Refills 3, Tot. Refills 3, Maintenance, 04/26/22 15:42:00 EDT, Route to Pharmacy Electronically, [facility]/pharmacy #[id number], 100 mg tab on backorder, 152.4, cm, 03/30/22 13:46:00 EDT, Height, 73.5, kg, 12/12/21... Start Date: 04/26/22 Stop Date: 04/21/23 Status: Ordered rosuvastatin 20 mg oral tablet 1 tablet, By Mouth, Daily, # 90 tablet, 1 Refills, Maintenance, 07/18/22 17:23:00 EDT, [facility]/pharmacy#[id number], 152.4, cm, 06/28/22 16:41:00 EDT, Height, 75.6, kg, 05/14/22 7:15:00 EDT, Dry Weight Start Date: 07/18/22 Status: Ordered Vitamin D3 1000 intl units oral capsule 1 capsule = 1,000 International_Units, By Mouth, Daily, # 90 capsule, 1 Refills, Maintenance, 07/17/22 19:46:00 EDT, Capsule, [facility]/pharmacy #[id number], 152.4, cm, 06/28/22 16:41:00 EDT, Height, [...] Team Personnel Name: Michelle LIN, Bailee Position: [facility] Nurse Member Role: Primary Care Nurse Name: Raphael WILDER, Ijeoma Toth Position: [facility] Primary Care Physician Member Role: PCP Address: Address: [address] [place] [address] Adult & [place] [address]- Care Team Related Persons Name: TAZ BATES Address: home [address] [place] [address]
--- OUTSIDE RECORDS SUMMARY | 2024-02-27 23:30 | XMS_ITS | Continuity of Care Document ---
Author Organization [facility] Address [address] [place] [address]- Care Team Providers Care Cooling Pan Tender Name Role Phone Raphael WILDER, Ijeoma Toth Primary Care Physician [phone] Encounter [facility] [place] Date(s): 11/08/23 - 12/08/[address] [address]- Attending Physician: Gloria Prescott Admitting Physician: AdmtrGloria Referring Physician: Admtr, Ar8 Allergies, Adverse Reactions, [...] EDT, Route to Pharmacy Electronically, [id number], 152, cm, 08/01/23 10:56:00 EDT, Height, 76.8, kg, 05/16/23 10:20:00 EDT, Dry Weight Start Date: 08/20/23 Status: Ordered docusate sodium 100 mg oral capsule 100 mg, 1, capsule, By Mouth, 2 times a day, # 60 capsule, Refills 1, Tot. Refills 1, Maintenance, 09/13/23 9:07:00 EST, Route to [facility]acy Electronically, [id number], Partial [...] EDT, Route to Pharmacy Electronically, [facility], 152, cm, 08/01/23 10:56:00 EDT, Height, 76.8, kg, 05/16/23 10:20:00 EDT, Dry Weight Start Date: 08/24/23 Status: Ordered fluticasone 50 mcg/inh nasal spray 1 sprays, Nares, Both, 2 times a day, # 16 Gm, 0 Refills, Maintenance, 08/01/23 11:21:00 EDT, [place], [id number], Partial fill upon patient request if the prescription is for a schedule II opioid drug., 1 sprays Nares, Both 2 times a day, 152,... Start Date: 08/01/23 Status: Ordered levothyroxine 0.137 mg oral tablet 1 tablet = 137 mcg, By Mouth, Daily, # 60 tablet, 6 Refills, Maintenance, 09/16/23 19:32:00 EST, Tablet, [facility]/pharmacy #[id number], Partial fill upon patient request if the prescription is for a schedule IIopioid drug., 152, cm, 09/13/23 8:42:00 EST, Height... Start Date: 09/16/23 Stop Date: 11/09/24 Status: Ordered losartan 50 mg oral tablet 50 mg, 1, tablet, By Mouth, Daily, # 90 tablet, Refills 3, Tot. Refills 3, Maintenance, 05/06/23 10:17:00 EDT, Route to Pharmacy Electronically, [facility]/pharmacy #[id number], 100 mg tab on backorder, 152.4, cm, 05/06/23 9:42:00 EDT, Height, 75.6, kg, 05/14/22 7... Start Date: 05/06/23 Stop Date: 04/30/24 Status: Ordered montelukast 10 mg oral tablet 10 mg, 1, tablet, By Mouth, Daily, # 90 tablet, Refills 3, Tot. Refills 3, Maintenance, 05/06/23 10:17:00 EDT, Route to Pharmacy Electronically, [facility]/pharmacy #[id number], Partial fill upon patient request if the prescription is for a schedule II opioid drug... Start Date: 05/06/23 Stop Date: 04/30/24 Status: Ordered omeprazole 40 mg oral enteric coated capsule 1 capsule = 40 mg, By Mouth, Daily, # 90 capsule, 3 Refills, Maintenance, 10/09/23 16:07:00 EST, ECCapsule, [facility]/pharmacy #[id number], Partial fill upon patient request [...] Personnel Name: Raphael WILDER, Ijeoma Toth Position: [facility] Physician - Primary Care Member Role: PCP Address: Address: [address] [place] [address] Adult & [place] [address]- Care Team Related Persons Name: TAZ BATES Address: home [address] [place] [address]
--- OUTSIDE RECORDS SUMMARY | 2024-02-27 23:31 | XMS_ITS | Continuity of Care Document ---
Author Organization [facility] Address [address] [place] [address]- Care Team Providers Care Him Tech Name Role Phone Ijeoma Lim MD Primary Care Physician Encounter [facility] [place] Date(s): 07/31/23 - 08/07/23 [facility] [address] [place], [place] [address] Encounter Diagnosis Bilateral knee pain(Discharge Diagnosis) - 08/02/23 Attending Physician: Ijeoma Lim MD Allergies, Adverse [...] 08/13/22 12:20:00 EDT, Route to [facility]acy [facility]ically, [id number], 152.4, cm, 08/10/22 15:55:00 EDT, Height, 75.6, kg, 05/14/22 7:15:00 EDT, Dry Weight Start Date: 08/13/22 Stop Date: 08/08/23 Status: Ordered diclofenac sodium 75 mg oral delayed release tablet 1 tablet = 75 mg, By Mouth, 2 times a day, # 28 tablet, 0 Refills, Maintenance, 07/31/23 9:53:00 EDT, [facility]/pharmacy #[id number], Partial fill upon patient request if the prescription is for a schedule II opioid drug., 152, cm, 07/31/23 9:14:00 EDT, Height, 7... Start Date: 07/31/23 Stop Date: 08/14/23 Status: Ordered Estrace 1 mg oral tablet [...] Date: 03/06/23 Stop Date: 09/02/23 Status: Ordered fluticasone 50 mcg/inh nasal spray 1 sprays, Nares, Both, 2 times a day, # 16 Gm, 0 Refills, Maintenance, 08/01/23 11:21:00 EDT, [place], [facility]/pharmacy #[id number], Partial fill upon patient request if the prescription is for a schedule II opioid drug., 1 sprays Nares, Both 2 times a day, 152,... Start Date: 08/01/23 Status: Ordered levothyroxine 150 mcg (0.15 mg) [...] 05/06/23 10:17:00 EDT, Route to Pharmacy Electronically, [facility]/pharmacy #[id number], 100 mg tab on backorder, 152.4, cm, 05/06/23 9:42:00 EDT, Height, 75.6, kg, 05/14/22 7... Start Date: 05/06/23 Stop Date: 04/30/24 Status: Ordered montelukast 10 mg oral tablet 10 mg, 1, tablet, By Mouth, Daily, # 90 tablet, Refills 3, Tot. Refills 3, Maintenance, 05/06/23 10:17:00 EDT, Route to Pharmacy Electronically, [facility]/pharmacy #[id number], Partial fill [...] Dry Weight Start Date: 01/09/23 Status: Ordered Sudafed 12-Hour 120 mg oral tablet, extended release 1 tablet = 120 mg, By Mouth, Every 12 hours, PRN as needed for cold symptoms, for 7 days, # 20 tablet, 0 Refills, Acute 08/08/23 11:21:00 EDT, 08/01/23 11:21:00 EDT, ER Tablet, [id number], Partial fill upon patient request if the prescription... Start Date: 08/01/23 Stop Date: 08/08/23 Status: Ordered Vitamin D3 1000 intl units oral capsule 1 capsule = 1,000 International_Units, By Mouth, Daily, # 90 capsule, 3 Refills, Maintenance, 01/09/23 9:26:00 EDT, Capsule, [facility]/pharmacy #[id number], 152.4, cm, 01/09/23 [...] Active PVCs (premature ventricular contractions) Confirmed Active Diagnosis Diagnosis Type Effective Dates Health Status Cl inical Service Informant Bilateral knee pain Discharge Diagnosis 08/02/23 Vital Signs Most recent to oldest [Reference Range]: 1 Height 152 cm (07/31/23 9:14 AM) Weight 79 kg (07/31/23 9:14 AM) Oxygen Saturation [94-100 %] 98 % (07/31/23 9:14 AM) Pulse Rate [55-90 bpm] 67 bpm (07/31/23 9:14 AM) Body Mass Index [18.5-24.99 kg/m2] 34.19 kg/m2 *>HHI* (07/31/23 9:14 AM) Blood Pressure [90-138/55-84 mm Hg] 127/ 78mm Hg (07/31/23 9:14 AM) Blood pressure sites Arm, left (07/31/23 9:14 AM) Weight Obtained Via Standing scale (07/31/23 9:14 AM) Social History Social History Type Response Smoking Status Never smoker; Tobacc o user in household: No entered on: 10/01/17 Sex Note * Michelle Steward: PERFORM, SIGN, VERIFY Event Display: Patient Education/Instruction Authored Date: [id number] [facility] Clinical Summary Name ANTONI DRUMMOND Age 52 Years 1970 PCP Raphael WILDER, Ijeoma Toth PCP Visit Date 07/31/2023 09:06:00 Patient Instructions use diclofenac for 2 weeks- morning and evening with food do xray of both knees at [address] we will refer depending on results of xray. Additional Instructions: Scheduled Appointments?? Future Appointments ?[facility] ?[address]??[place],??[place],??[address] ?Phone:??[phone]?Fax:??-- ?Appt. Date:??08/02/2023?7:30 AM ?Scheduled Provider:??[facility] US Rm 5 ?*[facility] ?[address]??[place],??[place],??[address] ?Phone:??--?Fax:??-- ?Appt. Date:??09/09/2023?9:10 AM ?Scheduled Provider:??Raphael WILDER , Ijeoma Toth ?*[facility] ?Phone:??--?Fax:??-- ?Appt. Date:??10/09/2023?2:40 PM ?Scheduled Provider:??[facility] ?*[facility] ?[address]??[place],??[place],??[address] ?Phone:??--?Fax:??-- ?Appt. Date:??10/09/2023?3:45 PM ?Scheduled Provider:??Gerard Valdez MD Follow-Up Instructions ?? Diagnosis Medications: Please continue your medications until treatment is completed or stopped by your provider. Discuss any questions related to medications with your provider. New Medications [id number], [address] [place] [phone], [phone] Diclofenac (diclofenac sodium 75 mg oral delayed release tablet) 1 tab(s) Oral twice a day for 14 Days. Refills: 0. Next Dose: Medications to Continue with No Changes These medications were not printed or sent to your pharmacy Chlorthalidone (chlorthalidone 25 mg oral tablet) 1 [...] mg) oral tablet) 1 tablet By Mouth 5 days weekly and half tablet 0.5 tablet on the 6th day. as directed with plenty of water as a single daily dose before breakfast avoid antacids, calcium, or iron for at least 4 hrs before or 4 hrs after. Refills: 11. Next Dose: Losartan (losartan 50 mg oral tablet) 1 tab(s) Oral Daily for 90 Days. Refills: 3. Next Dose: Montelukast (montelukast 10 mg oral tablet) 1 tab(s) Oral Daily for 90 Days. Refills: 3. Next Dose: Potassium Chloride (potassium chloride 20 mEq oral tablet, extended release) 1 tab(s) Oral Daily for 30 Days. Refills: 1. Next Dose: Rosuvastatin (rosuvastatin 20 mg oral tablet) 1 tab(s) Oral Daily. Refills: 3. Next Dose: Allergy Info:?? Latex; penicillin Medications Given This Visit Future Orders ?Knee 3 Views Right? Order Date:07/31/23?- Complete on or after?07/31/23 ?Knees Bilat Standing? Order Date:07/31/23?- Complete on or after?07/31/23 Vital Signs Height 152 cm Weight 79 kg BMI 34.19 kg/m2 Blood Pressure 127 mm Hg/78 mm Hg Temperature Pulse Rate 67 bpm Respiratory Rate 02 Sat Mode of Delivery 98 %/ You can now view a summary of your hospital visit from the comfort of your home through a free online portal called [employer]. [employer] is a website that allows you to securely view your medical information including discharge summary, medications and follow-up visits. ??You can alsosend a secure electronic message to your doctor???s office to request appointments, renew medications or just ask a question. You can enroll at [email or web address] or register during your next office visit. [...] primary care provider, you may find a [facility] provider by calling [facility] [employer] at [phone]. [facility], in keeping with [facility] guidance, no longer requires face masks for staff, patientsor visitors in most situations. Similar to time spent indoors at other locations, there is the chance that you were exposed to respiratory viruses during your time with us (such as flu or COVID-19).? If you develop symptoms concerning for a viral respiratory infection, please seek testing (and treatment if indicated) from your medical provider or home test kit. For information about the plan of care [...] Personnel Name: Raphael WILDER, Ijeoma Toth Position: [facility] Physician - Primary Care Member Role: PCP Address: Address: [address] [place] [address] Adult & [place] [address]- Care Team Related Persons Name: TAZ BATES Address: [address] [address]
--- OUTSIDE RECORDS SUMMARY | 2024-02-27 23:31 | XMS_ITS | Continuity of Care Document ---
Author Organization [facility] Address [address] [place] [address]- Care Team Providers Care Business Risk Analyst Name Role Phone Ijeoma Lim MD Primary Care Physician [phone] Encounter [facility] [place] Date(s): 06/18/23 - 07/18/23 [facility] Diabetes [address] [place] [address] Allergies, Adverse Reactions, Alerts Substance [...] acel(Tdap) 12/27/17 Given 1Result Comment: Done at [employer] 2Result Comment: Done at work Medications chlorthalidone 25 mg oral tablet 25 mg, 1, tablet, By Mouth, Daily, # 90 tablet, Refills 3, Tot. Refills 3, Maintenance, 08/13/22 12:20:00 EDT, Route to Pharmacy Electronically, [facility]/pharmacy #[id number], 152.4, cm, 08/10/22 15:55:00 [...] 05/06/23 10:17:00 EDT, Route to Pharmacy Electronically, [facility]/pharmacy #[id number], 100 mg tab on backorder, 152.4, cm, 05/06/23 9:42:00 EDT, Height, 75.6, kg, 05/14/22 7... Start Date: 05/06/23 Stop Date: 04/30/24 Status: Ordered montelukast 10 mg oral tablet 10 mg, 1, tablet, By Mouth, Daily, # 90 tablet, Refills 3, Tot. Refills 3, Maintenance, 05/06/23 10:17:00 EDT, Route to Pharmacy Electronically, [facility]/pharmacy #[id number], Partial fill upon patient request if the prescription is for a schedule II opioid drug... Start Date: 05/06/23 Stop Date: 04/30/24 Status: Ordered potassium chloride 20 mEq oral tablet, extended release 1 tablet = 20 mEq, By Mouth, Daily, # 30 tablet, 1 Refills, Maintenance, 05/11/23 22:39:00 EDT, ER Tablet, [facility]/pharmacy #[id number], Partial fill upon patient [...] 3 Refills, Maintenance, 01/09/23 9:26:00 EDT, Capsule, [facility]/pharmacy #[id number], 152.4, cm, 01/09/23 8:53:00 [...] Primary Care Member Role: PCP Address: Address: [address] [place] [address] Adult & [place] [address]- Care Team Related Persons Name: TAZ BATES Address: home [address] [place] [address]
--- OUTSIDE RECORDS SUMMARY | 2024-02-27 23:31 | XMS_ITS | Continuity of Care Document ---
Author Organization [facility] Address [address] [place] [address]- Care Team Providers Care Certified Peer Specialist Name Role Phone Raphael WILDER, Ijeoma Toth Primary Care Physician [phone] Encounter [facility] Date(s): 04/26/22 - 05/26/22 [facility] [address] [place], [place] [address] Allergies, Adverse Reactions, Alerts Substance [...] acel(Tdap) 12/27/17 Given 1Result Comment: Done at [employer] 2Result Comment: Done at work Medications aspirin 81 mg oral delayed release tablet 81 mg, 1, tablet, By Mouth, Daily, Refills 0, Maintenance, 12/11/21 12:26:00 EST, Partial fill uponpatient request if the prescription is for a schedule II opioid drug. Start Date: 12/11/21 Status: Ordered Bactrim DS 800 mg-160 mg oral tablet 1 tablet, By Mouth, 2 times a day, for 7 days, # 14 tablet, 0 Refills, Acute 06/01/22 12:35:00 EDT,05/25/22 12:35:00 EDT, Tablet, [facility]/pharmacy #[id number], Partial fill upon patient request if the prescription is for a schedule II opioid drug., 1 tablet By... Start Date: 05/25/22 Stop Date: 06/01/22 Status: Ordered chlorthalidone 25 mg oral tablet [...] 3 Refills, Maintenance, 01/11/22 15:35:00 EDT, Tablet, [facility]/pharmacy #[id number], Partial fill upon patient [...] 04/26/22 15:42:00 EDT, Route to Pharmacy Electronically, [facility]/pharmacy #[id number], 100 mg tab on backorder, 152.4, cm, 03/30/22 13:46:00 EDT, Height, 73.5, kg, 12/12/21... Start Date: 04/26/22 Stop Date: 04/21/23 Status: Ordered rosuvastatin 20 mg oral tablet 1 tablet = 20 mg, By Mouth, Daily, # 90 tablet, 0 Refills, Maintenance, 04/27/22 17:16:00 EDT, [facility]/pharmacy #[id number], familial hyperlipidemia. pravastatin not effective., 152.4, cm, 03/30/22 13:46:00 EDT, Height, 73.5, kg, 12/12/21 9:43:00 EST, Dry Weight Start Date: 04/27/22 Stop Date: 07/26/22 Status: Ordered Vitamin D3 1000 intl units oral capsule 1 capsule = 1,000 International_Units, By Mouth, Daily, # 90 capsule, 3 Refills, Maintenance, 07/12/21 15:00:00 EDT, Capsule, [facility]/pharmacy #[id number], 152.4, cm, 07/12/21 14:27:00 EDT, [...]
--- OUTSIDE RECORDS SUMMARY | 2024-02-27 23:31 | XMS_ITS | Continuity of Care Document ---
Author Organization [facility] Address [address] [place] [address]- Care Team Providers Care Orthopedic Specialist Name Role Phone Ijeoma Lim MD Primary Care Physician [phone] Encounter [facility] Date(s): 12/31/23 - 01/30/24 [facility] [address] [place], [place] [address] Allergies, Adverse Reactions, Alerts [...] acel(Tdap) 12/27/17 Given 1Result Comment: Done at [employer] 2Result Comment: Done at work Medications barium sulfate 2% oral suspension See Instructions, dispense 2 bottles 1st bottle 6 hrs before & 2nd bottle [address], # 2each, 0 Refills, Maintenance, 09/13/23 9:28:00 EST, [facility]/pharmacy #[id number], Partial fill upon patient request if the prescription is for a schedule II opioid... Start Date: 09/13/23 Status: Ordered chlorthalidone 25 mg oral tablet 1, tablet, By Mouth, Daily, # 90 tablet, Refills 1, Maintenance, 08/20/23 0:15:00 EDT, Route to [facility]acy Electronically, [facility], 152, cm, 08/01/23 10:56:00 EDT, Height, 76.8, kg, 05/16/23 10:20:00 EDT, Dry Weight Start Date: 08/20/23 Status: Ordered docusate sodium 100 mg oral capsule 100 mg, 1, capsule, By Mouth, 2 times a day, # 60 capsule, Refills 1, Tot. Refills 1, Maintenance, 09/13/23 9:07:00 EST, Route to Pharmacy Electronically, [facility]/pharmacy #[id number], Partial fill upon patient [...] EDT, Route to Pharmacy Electronically, [facility], 152, cm, 08/01/23 10:56:00 EDT, Height, 76.8, kg, 05/16/23 10:20:00 EDT, Dry Weight Start Date: 08/24/23 Status: Ordered fluticasone 50 mcg/inh nasal spray 1 sprays, Nares, Both, 2 times a day, # 16 Gm, 0 Refills, Maintenance, 08/01/23 11:21:00 EDT, [place], [facility]/pharmacy #[id number], Partial fill upon patient request if the prescription is for a schedule II opioid drug., 1 sprays Nares, Both 2 times a day, 152,... Start Date: 08/01/23 Status: Ordered levothyroxine 0.137 mg oral tablet 1 tablet = 137 mcg, By Mouth, Daily, # 60 tablet, 6 Refills, Maintenance, 09/16/23 19:32:00 EST, Tablet, [facility]/pharmacy #[id number], Partial fill upon patient request if the prescription is for a schedule IIopioid drug., 152, cm, 09/13/23 8:42:00 EST, Height... Start Date: 09/16/23 Stop Date: 11/09/24 Status: Ordered losartan 50 mg oral tablet 50 mg, 1, tablet, By Mouth, Daily, # 90 tablet, Refills 3, Tot. Refills 3, Maintenance, 05/06/23 10:17:00 EDT, Route to Pharmacy Electronically, [facility]/pharmacy #[id number], 100 mg tab on backorder, 152.4, cm, 05/06/23 9:42:00 EDT, Height, 75.6, kg, 05/14/22 7... Start Date: 05/06/23 Stop Date: 04/30/24 Status: Ordered montelukast 10 mg oral tablet 10 mg, 1, tablet, By Mouth, Daily, # 90 tablet, Refills 3, Tot. Refills 3, Maintenance, 05/06/23 10:17:00 EDT, Route to Pharmacy Electronically, [facility]/pharmacy #[id number], Partial fill upon patient request if the prescription is for a schedule II opioid drug... Start Date: 05/06/23 Stop Date: 04/30/24 Status: Ordered omeprazole 40 mg oral enteric coated capsule 1 capsule = 40 mg, By Mouth, Daily, # 90 capsule, 3 Refills, Maintenance, 10/09/23 16:07:00 EST, ECCapsule, [facility]/pharmacy #[id number], Partial fill upon patient request if the prescription is for a schedule II opioid drug., 152, cm, 10/09/23 15:44:00 EST, H... Start Date: 10/09/23 Stop Date: 10/03/24 Status: Ordered rosuvastatin 20 mg oral tablet 1 tablet, By Mouth, Daily, # 90 tablet, 1 Refills, Maintenance, 01/07/24 3:02:00 EDT, [facility]/pharmacy #[id number], 152, cm, 10/09/23 15:44:00 EST, Height, 76.8, kg, 05/16/23 10:20:00 EDT, Dry Weight Start Date: 01/07/24 Status: Ordered Suprep Bowel Prep Kit oral [...] # 354... Start Date: 10/09/23 Status: Ordered VITAMIN D3 1,000 UNIT SOFTGEL VITAMIN D3 1,000 UNIT SOFTGEL, 1, capsule, By Mouth, Daily, # 90 capsule, 3 Refills, Maintenance, 01/08/24 21:31:00 EDT, 152, cm, 10/09/23 15:44:00 EST, Height, 76.8, kg, 05/16/23 10:20:00 EDT, Dry Weight Start Date: 01/08/24 Status: Ordered Vitamin D3 1000 intl units [...] Primary Care Member Role: PCP Address: Address: [address] [place] [address] Adult [place] [address]- Care Team Related Persons Name: JOEL BATESIX Address: home [address] [place] [address]
--- OUTSIDE RECORDS SUMMARY | 2024-02-27 23:31 | XMS_ITS | Continuity of Care Document ---
Author Organization [facility] Address [address] [place] [address] [address] [place] [address]- Care Team Providers Care Dragsaw Operator Name Role Phone Ijeoma Lim MD Primary Care Physician Encounter [facility] Date(s): 01/16/23 - 01/23/23 [facility] [address] [place], [place] [address] Attending Physician: Santos Zapata MD Allergies, [...] acel(Tdap) 12/27/17 Given 1Result Comment: Done at [employer] 2Result Comment: Done at work Medications aspirin [...] 09/24/22 16:52:00 EST, Route to Pharmacy Electronically, [facility]/pharmacy #[id number], Partial fill upon patient request if the prescription is for a schedule II opi... Start Date: 09/24/22 Status: Ordered chlorthalidone 25 mg oral tablet 25 mg, 1, tablet, By Mouth, Daily, # 90 tablet, Refills 3, Tot. Refills 3, Maintenance, 08/13/22 12:20:00 EDT, Route to Pharmacy Electronically, [facility]/pharmacy #[id number], 152.4, cm, 08/10/22 15:55:00 EDT, Height, 75.6, kg, 05/14/22 7:15:00 EDT, Dry Weight Start Date: 08/13/22 Stop Date: 08/08/23 Status: Ordered cyclobenzaprine 10 mg oral tablet 1, tablet, By Mouth, 3 times a day, # 10 tablet, Refills 1, Maintenance, 08/27/22 7:59:00 EST, Route to Pharmacy Electronically, [facility], 152.4, cm, 08/10/22 15:55:00 EDT, Height, 75.6, [...] Refills, Maintenance, 01/11/22 15:35:00 EDT, Tablet, [facility]/pharmacy #[id number], Partial fill upon patient request if the prescription is for a schedule II opioid drug., 152.4, cm, 01/11/22 15:23:00... Start Date: 01/11/22 Status: Ordered FLUoxetine 10 mg oral capsule 10 mg, 1, capsule, By Mouth, Daily, # 30 capsule, Refills 1, Tot. Refills 1, Maintenance, 01/09/23 9:29:00 EDT, Route to Pharmacy Electronically, [facility]/pharmacy #[id number], Partial fill upon patient requestif [...] 04/26/22 15:42:00 EDT, Route to Pharmacy Electronically, [facility]/pharmacy #[id number], 100 mg tab on backorder, [...] oldest [Reference Range]: 1 Height 152.4 cm (01/16/23 9:14 AM) Weight 75 kg (01/16/23 9:14 AM) Body Mass Index [18.5-24.99 kg/m2] 32.29 kg/m2 *>HHI* (01/16/23 9:14 AM) Social History Social History Type Response Smoking Status Never smoker; Tobacc o user in household: No entered on: 10/01/17 Sex Patient Care team information Care Team Personnel Name: Bailee Martinez RN Position: [facility] AMB Nurse Member Role: Primary Care Nurse Name: Ijeoma Lim MD Position: [facility] Primary Care Physician Member Role: PCP Address: Address: [address] [place] [address] Adult & [place] [address]- Care Team Related Persons Name: TAZ BATES Address: home [address] [place] [address]
--- OUTSIDE RECORDS SUMMARY | 2024-02-27 23:31 | XMS_ITS | Continuity of Care Document ---
Author Organization [facility] Address [address] [place] [address]- Care Team Providers Care Patient Registrar Name Role Phone Raphael WILDER, Ijeoma Toth Primary Care Physician Encounter [facility] Date(s): 07/18/21 - 11/30/21 [facility] [address] [place], [place] [address] Attending Physician: Ijeoma [...] 2 patch, 0 Refills,Maintenance, 01/28/21 17:24:00 EDT, [facility]/pharmacy #[id number], Partial fill upon patient request if [...]
--- OUTSIDE RECORDS SUMMARY | 2024-02-27 23:31 | XMS_ITS | Continuity of Care Document ---
Author Organization [facility] Address [address] [place] [address]- Care Team Providers Care Car Sander Name Role Phone Ijeoma Lim MD Primary Care Physician [phone] Encounter [facility] Date(s): 04/16/23 - 05/16/23 [facility] [address] [place] [id number] Allergies, Adverse Reactions, Alerts Substance Reaction Severity [...] 05/08/23 16:48:00 EDT, Route to Pharmacy Electronically, [facility]/pharmacy #[id number], Partial fill upon patient request i... Start Date: 05/08/23 Stop Date: 05/25/23 Status: Ordered chlorthalidone 25 mg oral tablet 25 mg, 1, tablet, By Mouth, Daily, # 90 tablet, Refills 3, Tot. Refills 3, Maintenance, 08/13/22 12:20:00 EDT, Route to Pharmacy Electronically, [facility]/pharmacy #[id number], 152.4, cm, 08/10/22 15:55:00 EDT, [...] 3 Refills, Maintenance, 01/11/22 15:35:00 EDT, Tablet, [facility]/pharmacy #[id number], Partial fill upon patient request if the prescription is for a schedule II opioid drug., 152.4, cm, 01/11/22 15:23:00... Start Date: 01/11/22 Status: Ordered FLUoxetine 10 mg oral capsule 10 mg, 1, capsule, By Mouth, Daily, # 90 capsule, Refills 1, Tot. Refills 1, Maintenance, 03/06/23 9:30:00 EDT, Route to Pharmacy Electronically, [facility]/pharmacy #[id number], Partial fill upon patient requestif [...] 05/08/23 16:48:00 EDT, Route to Pharmacy Electronically, [facility]/pharmacy #[id number], Partial fill... Start Date: 05/08/23 Stop [...] 05/06/23 10:17:00 EDT, Route to Pharmacy Electronically, [facility]/pharmacy #[id number], 100 mg tab on backorder, 152.4, cm, 05/06/23 9:42:00 EDT, Height, 75.6, kg, 05/14/22 7... Start Date: 05/06/23 Stop Date: 04/30/24 Status: Ordered montelukast 10 mg oral tablet 10 mg, 1, tablet, By Mouth, Daily, # 90 tablet, Refills 3, Tot. Refills 3, Maintenance, 05/06/23 10:17:00 EDT, Route to Pharmacy Electronically, [facility]/pharmacy #[id number], Partial fill upon patient request if the prescription is for a schedule II opioid drug... Start Date: 05/06/23 Stop Date: 04/30/24 Status: Ordered oxyCODONE 5 mg oral tablet 5 mg, 1, tablet, By Mouth, Every 6 hours, PRN, # 8 tablet, Refills 0, Tot. Refills 0, Acute 05/17/23 11:45:00 EDT, for pain, 05/16/23 11:45:00 EDT, [facility], [id number], [...] Team Personnel Name: Michelle LIN, Bailee Position: [facility] AMB Nurse Member Role: Primary Care Nurse Name: Raphael WILDER, Ijeoma Toth Position: [facility] Physician - Primary Care Member Role: PCP Address: Address: [address] [place] [address] Adult [place] [address]- Care Team Related Persons Name: TAZ BATES Address: home [address] [place] [address]
--- OUTSIDE RECORDS SUMMARY | 2024-02-27 23:31 | XMS_ITS | Continuity of Care Document ---
Author Organization [facility] Address [address] [place] [address]- Care Team Providers Care Joggle Press Operator Name Role Phone Ijeoma Lim MD Primary Care Physician [phone] Encounter [facility] Date(s): 05/02/22 - 06/01/22 [facility] [address] [place] [id number] Allergies, Adverse Reactions, Alerts Substance Reaction [...] acel(Tdap) 12/27/17 Given 1Result Comment: Done at [employer] 2Result Comment: Done at work Medications aspirin [...] 3 Refills, Maintenance, 01/11/22 15:35:00 EDT, Tablet, [facility]/pharmacy #[id number], Partial fill upon patient [...] 04/26/22 15:42:00 EDT, Route to Pharmacy Electronically, [facility]/pharmacy #[id number], 100 mg tab on backorder, 152.4, cm, 03/30/22 13:46:00 EDT, Height, 73.5, kg, 12/12/21... Start Date: 04/26/22 Stop Date: 04/21/23 Status: Ordered rosuvastatin 20 mg oral tablet 1 tablet = 20 mg, By Mouth, Daily, # 90 tablet, 0 Refills, Maintenance, 04/27/22 17:16:00 EDT, [facility]/pharmacy #[id number], familial hyperlipidemia. pravastatin not [...]
--- OUTSIDE RECORDS SUMMARY | 2024-02-27 23:31 | XMS_ITS | Continuity of Care Document ---
Author Organization [facility] Address [address] [place] [address] [address] [place] [address]- Care Team Providers Care Radial Drill Press Set Up Operator Name Role Phone Ijeoma Lim MD Primary Care Physician [phone] Encounter [facility] Date(s): 06/26/23 - 07/03/23 [facility] [address] [place], [place] [address] Attending Physician: Santos Zapata MD Allergies, Adverse [...] acel(Tdap) 12/27/17 Given 1Result Comment: Done at [employer] 2Result Comment: Done at work Medications chlorthalidone [...] 3 Refills, Maintenance, 01/11/22 15:35:00 EDT, Tablet, [facility]/pharmacy #[id number], Partial fill upon patient request if the prescription is for a schedule II opioid drug., 152.4, cm, 01/11/22 15:23:00... Start Date: 01/11/22 Status: Ordered FLUoxetine 10 mg oral capsule 10 mg, 1, capsule, By Mouth, Daily, # 90 capsule, Refills 1, Tot. Refills 1, Maintenance, 03/06/23 9:30:00 EDT, Route to Pharmacy Electronically, [facility]/pharmacy #[id number], Partial fill upon patient requestif the [...] oldest [Reference Range]: 1 Height 152 cm (06/26/23 3:10 PM) Weight 76.8 kg (06/26/23 3:10 PM) Body Mass Index [18.5-24.99 kg/m2] 33.24 kg/m2 *>HHI* (06/26/23 3:10 PM) Social History Social History Type Response Smoking Status Never smoker; Tobacc o user in household: No entered on: 10/01/17 Sex Patient Care team information Care Team Personnel Name: Raphael WILDER, Ijeoma Toth Position: S Physician - Primary Care Member Role: PCP Address: Address: [address] [place] [address] Adult & [place] [address]- Care Team Related Persons Name: TAZ BATES Address: home [address] [place] [address]
--- OUTSIDE RECORDS SUMMARY | 2024-02-27 23:31 | XMS_ITS | Continuity of Care Document ---
Author Organization [facility] Address [address] [place] [address]- Care Team Providers Care Assembler Clip On Sunglasses Name Role Phone Ijeoma Lim MD Primary Care Physician Encounter [facility] Date(s): 01/29/22 - 02/28/22 [facility] [address] [place], [place] [address] Allergies, Adverse Reactions, Alerts [...] 14:40:00 EST, Route to Pharmacy Electronically, [facility], 152.4, cm, 07/12/21 14:27:00 EDT, [...] 3 Refills, Maintenance, 01/11/22 15:35:00 EDT, Tablet, [facility]/pharmacy #[id number], Partial fill upon [...] 5 Refills, Maintenance, 07/26/20 10:27:00 EDT, Tablet, [facility]/pharmacy #[id number], 152, cm, 07/26/20 10:00:00 EDT, [...]
--- OUTSIDE RECORDS SUMMARY | 2024-02-27 23:31 | XMS_ITS | Continuity of Care Document ---
Author Organization [facility] Address [address] [place] [address]- Care Team Providers Care Rn Allergy Name Role Phone Ijeoma Lim MD Primary Care Physician [phone] Encounter [facility] Date(s): 03/03/21 - 04/02/21 [facility] [address] [place], [place] [address] Attending Physician: Admtr, Ar8 Admitting Physician: Admtr, Ar8 Referring Physician: Admtr, [...] 13:54:00 EDT, Inhaler, Route to Pharmacy Electronically, [id number], [facility]/pharmacy #[id number], 152, cm, 01/18/20 9:51:00 EDT, [place]... Start Date: 02/12/20 Status: Ordered Teodora 0.1 mg/24 hours twice weekly transdermal film, extended release See Instructions, 0.1 mg estradiol patch transdermal, reapply every 72 hours, # 2 patch, 0 Refills,Maintenance, 01/28/21 17:24:00 EDT, [id number] Partial fill upon patient request if the prescription is for a schedule II opioid drug., 152.4,... Start Date: 01/28/21 Status: Ordered chlorthalidone 25 mg oral tablet 25 mg, 1, tablet, By Mouth, Daily, # 90 tablet, Refills 3, Tot. Refills 3, Maintenance, 07/07/20 14:00:00 EDT, [facility]ically, [id number], 152, cm, 03/16/20 15:37:00 EDT, Height, [...] tablet, 1 Refills, Maintenance, 12/20/20 13:28:00 EST, [facility]/pharmacy #[id number], labs needed, 152, cm, 09/14/20 10:51:00 EST, Height, 67.27, kg, 01/26/19 8:44:00 EDT, Dry Weight Start Date: 12/20/20 Status: Ordered losartan 50 mg oral tablet 50 mg, 1, tablet, By Mouth, Daily, # 90 tablet, Refills 1, Tot. Refills 1, Maintenance, 01/26/21 14:32:00 EDT, [facility] Electronically, [id number], 100 mg tab on backorder, 152.4, cm, 01/20/21 12:01:00 EDT, Height, 73.64, kg, 01/20/21... Start Date: 01/26/21 Stop Date: 07/25/21 Status: Ordered omeprazole 20 mg oral enteric coated capsule 1 capsule = 20 mg, By Mouth, Daily, # 90 capsule, 3 Refills, Maintenance, 05/26/20 15:26:00 EDT, ECCapsule, [facility]/pharmacy #[id number], 152, cm, 03/16/20 15:37:00 EDT, Height, [...] 3 Refills, Maintenance, 05/25/20 10:43:00 EDT, Capsule, [facility]/pharmacy #[id number], 152, cm, 03/16/20 15:37:00 EDT, Height, [...]
--- OUTSIDE RECORDS SUMMARY | 2024-02-27 23:31 | XMS_ITS | Continuity of Care Document ---
Author Organization [facility] Address [address] [place] [address]- Care Team Providers Care Lamp Cleaner Street Light Name Role Phone Raphael WILDER, Ijeoma Toth Primary Care Physician Encounter [facility] Date(s): 08/30/20 - 09/29/[address] [address]- Allergies, Adverse Reactions, Alerts Substance Reaction Severity [...] 13:54:00 EDT, Inhaler, Route to Pharmacy Electronically, [id number], [facility]/pharmacy #[id number], 152, cm, 01/18/20 9:51:00 EDT, [place]... Start Date: 02/12/20 Status: Ordered Aspirin Enteric Coated 81 mg oral delayed release tablet 1 tablet, By Mouth, Daily, # 90 tablet, 3 Refills, Maintenance, 08/19/20 9:23:00 EDT, [facility], 152, cm, 07/26/20 10:00:00 EDT, Height, 67.27, kg, 01/26/19 8:44:00 EDT, Dry Weight Start Date: 08/19/20 Status: Ordered chlorthalidone 25 mg oral tablet 25 mg, 1, tablet, By Mouth, Daily, # 90 tablet, Refills 3, Tot. Refills 3, Maintenance, 07/07/20 14:00:00 EDT, Route to Pharmacy Electronically, [facility]/pharmacy #[id number], 152, cm, 03/16/20 [...] tablet, 0 Refills, Maintenance, 05/25/20 9:12:00 EDT, [facility]/pharmacy #[id number], labs needed, 152, cm, 03/16/20 15:37:00 EDT, Height, 67.27, kg, 01/26/19 8:44:00 EDT, Dry Weight Start Date: 05/25/20 Status: Ordered losartan 50 mg oral tablet 50 mg, 1, tablet, By Mouth, Daily, # 90 tablet, Refills 3, Tot. Refills 3, Maintenance, 01/21/20 9:57:00 EDT, Route to Pharmacy Electronically, [facility]/pharmacy #[id number], 100 mg tab [...]
--- OUTSIDE RECORDS SUMMARY | 2024-02-27 23:31 | XMS_ITS | Continuity of Care Document ---
Author Organization [facility] Address [address] [place] [address] ve [address] [place] [address]- Care Team Providers Care Direct Care Provider Name Role Phone Ijeoma Lim MD Primary Care Physician Encounter [facility] Date(s): 12/25/21 - 01/24/22 [facility] [address] [place], [place] [address] Attending Physician: AdmtrGloria Admitting Physician: AdmtrGloria Referring Physician: Admtr, Ar8 [...] 14:40:00 EST, Route to Pharmacy Electronically, [facility], 152.4, cm, 07/12/21 14:27:00 EDT, [...] 3 Refills, Maintenance, 01/11/22 15:35:00 EDT, Tablet, [facility]/pharmacy #[id number], Partial fill upon patient request if the [...] 5 Refills, Maintenance, 07/26/20 10:27:00 EDT, Tablet, [facility]/pharmacy #[id number], 152, cm, 07/26/20 10:00:00 EDT, [...]
--- OUTSIDE RECORDS SUMMARY | 2024-02-27 23:31 | XMS_ITS | Continuity of Care Document ---
Author Organization [facility] Address [address] [place] [address]- Care Team Providers Care Civil Process Server Name Role Phone Ijeoma Lim MD Primary Care Physician Encounter [facility] Date(s): 08/21/23 - 09/20/23 [facility] [address] [place], [place] [address] Allergies, Adverse Reactions, Alerts [...] acel(Tdap) 12/27/17 Given 1Result Comment: Done at [email or web address] 2Result Comment: Done at work Medications barium sulfate 2% oral suspension See Instructions, dispense 2 bottles 1st bottle 6 hrs before & 2nd bottle [address], # 2each, 0 Refills, Maintenance, 09/13/23 9:28:00 EST, [facility]/pharmacy #[id number], Partial fill upon patient request if the prescription is for a schedule II opioid... Start Date: 09/13/23 Status: Ordered chlorthalidone 25 mg oral tablet 1, tablet, By Mouth, Daily, # 90 tablet, Refills 1, Maintenance, 08/20/23 0:15:00 EDT, Route to Pharmacy Electronically, [facility], 152, cm, 08/01/23 10:56:00 EDT, Height, 76.8, kg, 05/16/23 10:20:00 EDT, Dry Weight Start Date: 08/20/23 Status: Ordered docusate sodium 100 mg oral capsule 100 mg, 1, capsule, By Mouth, 2 times a day, # 60 capsule, Refills 1, Tot. Refills 1, Maintenance, 09/13/23 9:07:00 EST, Route to Pharmacy Electronically, [facility]/pharmacy #[id number], Partial fill upon patient request [...] 3 Refills, Maintenance, 01/11/22 15:35:00 EDT, Tablet, [facility]/pharmacy #[id number], Partial fill upon patient request if the prescription is for a schedule II opioid drug., 152.4, cm, 01/11/22 15:23:00... Start Date: 01/11/22 Status: Ordered FLUoxetine 10 mg oral capsule 1, capsule, By Mouth, Daily, # 90 capsule, Refills 1, Maintenance, 08/24/23 9:01:00 EDT, Route to Pharmacy Electronically, [facility], 152, cm, 08/01/23 10:56:00 EDT, Height, 76.8, kg, 05/16/23 10:20:00 EDT, Dry Weight Start Date: 08/24/23 Status: Ordered fluticasone 50 mcg/inh nasal spray 1 sprays, Nares, Both, 2 times a day, # 16 Gm, 0 Refills, Maintenance, 08/01/23 11:21:00 EDT, [place], [facility]/pharmacy #[id number], Partial fill upon patient request if the prescription is for a schedule II opioid drug., 1 sprays Nares, Both 2 times a day, 152,... Start Date: 08/01/23 Status: Ordered levothyroxine 0.137 mg oral tablet 1 tablet = 137 mcg, By Mouth, Daily, # 60 tablet, 6 Refills, Maintenance, 09/16/23 19:32:00 EST, Tablet, [facility]/pharmacy #[id number], Partial fill upon patient request if the prescription is for a schedule IIopioid drug., 152, cm, 09/13/23 8:42:00 EST, Height... Start Date: 09/16/23 Stop Date: 11/09/24 Status: Ordered losartan 50 mg oral tablet 50 mg, 1, tablet, By Mouth, Daily, # 90 tablet, Refills 3, Tot. Refills 3, Maintenance, 05/06/23 10:17:00 EDT, Route to Pharmacy Electronically, [facility]/pharmacy #[id number], 100 mg tab on backorder, 152.4, cm, 05/06/23 9:42:00 EDT, Height, 75.6, kg, 05/14/22 7... Start Date: 05/06/23 Stop Date: 04/30/24 Status: Ordered montelukast 10 mg oral tablet 10 mg, 1, tablet, By Mouth, Daily, # 90 tablet, Refills 3, Tot. Refills 3, Maintenance, 05/06/23 10:17:00 EDT, Route to Pharmacy Electronically, [facility]/pharmacy #[id number], Partial fill upon patient request [...] Personnel Name: Raphael WILDER, Ijeoma Toth Position: [facility] Physician - Primary Care Member Role: PCP Address: Address: [address] [place] [address] Adult & [place] [address]- Care Team Related Persons Name: TAZ BATES Address: home [address] [place] [address]
--- OUTSIDE RECORDS SUMMARY | 2024-02-27 23:31 | XMS_ITS | Continuity of Care Document ---
Author Organization [facility] Address [address] [place] [address]- Care Team Providers Care Lead Painter Name Role Phone Ijeoma Lim MD Primary Care Physician [phone] Encounter [facility] Date(s): 12/12/20 - 01/11/21 [facility] [address] [place], [place] [address] Attending Physician: Gloria Prescott Admitting Physician: AdmtrGloria Referring Physician: Admtr, ArChristi Allergies, Adverse Reactions, Alerts Substance Reaction Severity [...] 13:54:00 EDT, Inhaler, Route to Pharmacy Electronically, [id number], [facility]/pharmacy #[id number], 152, cm, 01/18/20 9:51:00 EDT, [place]... Start Date: 02/12/20 Status: Ordered chlorthalidone 25 mg oral tablet 25 mg, 1, tablet, By Mouth, Daily, # 90 tablet, Refills 3, Tot. Refills 3, Maintenance, 07/07/20 14:00:00 EDT, Route to Pharmacy Electronically, [facility]/pharmacy #[id number], 152, cm, 03/16/20 15:37:00 EDT, Height, [...] tablet, 1 Refills, Maintenance, 12/20/20 13:28:00 EST, [facility]/pharmacy #[id number], labs needed, 152, cm, 09/14/20 10:51:00 EST, Height, 67.27, kg, 01/26/19 8:44:00 EDT, Dry Weight Start Date: 12/20/20 Status: Ordered losartan 50 mg oral tablet 50 mg, 1, tablet, By Mouth, Daily, # 90 tablet, Refills 3, Tot. Refills 3, Maintenance, 01/21/20 9:57:00 EDT, Route to Pharmacy Electronically, [facility]/pharmacy #[id number], 100 mg tab on backorder, 152, cm, 01/18/20 9:51:00 EDT, Height, 67.27, kg, 01/26/19 8:4... Start Date: 01/21/20 Stop Date: 01/15/21 Status: Ordered omeprazole 20 mg oral enteric coated capsule 1 capsule = 20 mg, By Mouth, Daily, # 90 capsule, 3 Refills, Maintenance, 05/26/20 15:26:00 EDT, ECCapsule, [facility]/pharmacy #[id number], 152, cm, 03/16/20 15:37:00 EDT, Height, [...]
--- OUTSIDE RECORDS SUMMARY | 2024-02-27 23:31 | XMS_ITS | Continuity of Care Document ---
Author Organization [facility] Address [address] [place] [address]- Care Team Providers Care Burnisher And Bumper Name Role Phone Raphael WILDER, Ijemoa Toth Primary Care Physician [facility]counter [facility] Date(s): 11/16/22 - 12/16/22 [facility] [address] [place], [place] [address] Allergies, Adverse Reactions, Alerts Substance [...] acel(Tdap) 12/27/17 Given 1Result Comment: Done at [employer] 2Result Comment: Done at work Medications aspirin [...] 09/24/22 16:52:00 EST, [id number] Partial fill upon patient request if the prescription is for a schedule II opi... Start Date: 09/24/22 Status: Ordered chlorthalidone 25 mg oral tablet 25 mg, 1, tablet, By Mouth, Daily, # 90 tablet, Refills 3, Tot. Refills 3, Maintenance, 08/13/22 12:20:00 EDT, Route to Pharmacy Electronically, [facility]/pharmacy #[id number], 152.4, cm, 08/10/22 15:55:00 EDT, Height, 75.6, kg, 05/14/22 7:15:00 EDT, Dry Weight Start Date: 08/13/22 Stop Date: 08/08/23 Status: Ordered cyclobenzaprine 10 mg oral tablet 1, tablet, By Mouth, 3 times a day, # 10 tablet, Refills 1, Maintenance, 08/27/22 7:59:00 EST, Route to Pharmacy Electronically, [facility] STORE [id number], 152.4, cm, 08/10/22 15:55:00 EDT, Height, 75.6, [...] 3 Refills, Maintenance, 01/11/22 15:35:00 EDT, Tablet, [facility]/pharmacy #[id number], Partial fill upon patient request if the prescription is for a schedule II opioid drug., 152.4, cm, 01/11/22 15:23:00... Start Date: 01/11/22 Status: Ordered levothyroxine 150 mcg (0.15 mg) oral tablet 1 tablet = 150 mcg, By Mouth, Daily, # 30 tablet, 11 Refills, Maintenance, 11/01/22 13:39:00 EST, [facility]/pharmacy #[id number], Partial fill upon patient request if the prescription is for a schedule II opioiddrug., 152.4, cm, 08/10/22 15:55:00 EDT, Height, 75... Start Date: 11/01/22 Status: Ordered losartan 50 mg oral tablet 50 mg, 1, tablet, By Mouth, Daily, # 90 tablet, Refills 3, Tot. Refills 3, Maintenance, 04/26/22 15:42:00 EDT, Route to Pharmacy Electronically, [facility]/pharmacy #[id number], 100 mg tab on [...] 1 Refills, Maintenance, 07/17/22 19:46:00 EDT, Capsule, [facility]/pharmacy #[id number], 152.4, cm, 06/28/22 16:41:00 [...] Team Personnel Name: Michelle LIN, Bailee Position: [facility] Nurse Member Role: Primary Care Nurse Name: Raphael WILDER, Ijeoma Toth Position: [facility] Primary Care Physician Member Role: PCP Address: Address: [address] [place] [address] Adult [place] [address]- [place] Care Team Related Persons Name: TAZ BATES Address: [address] [place] [address]
--- OUTSIDE RECORDS SUMMARY | 2024-02-27 23:31 | XMS_ITS | Continuity of Care Document ---
Author Organization [facility] Address [address] [place] [address]- Care Team Providers Care Sanitary Plumber Name Role Phone Ijeoma Lim MD Primary Care Physician Encounter [facility] Date(s): 06/04/22 - 07/04/22 [facility] [address] [place] [address]- [place] Allergies, Adverse Reactions, Alerts Substance Reaction [...] acel(Tdap) 12/27/17 Given 1Result Comment: Done at [employer] 2Result Comment: Done at work Medications aspirin [...] 06/28/22 17:06:00 EDT, Route to Pharmacy Electronically, [facility]/pharmacy [...] 04/26/22 15:42:00 EDT, Route to Pharmacy Electronically, [facility]/pharmacy [...] Personnel Name: Raphael WILDER, Ijeoma Toth Address: [address] [place] [address] Adult & Pediatric [address]
--- OUTSIDE RECORDS SUMMARY | 2024-02-27 23:31 | XMS_ITS | Continuity of Care Document ---
Author Organization [facility] Address [address] [place] [address]- Care Team Providers Care Child Life Assistant Name Role Phone Ijeoma Lim MD Primary Care Physician Encounter [facility] Date(s): 07/25/23 - 12/18/[address] [address]- Attending Physician: Pritesh Sierra OD Admitting Physician: Pritesh Sierra OD Referring Physician: Ijeoma Lim MD Allergies, Adverse [...] EDT, Route to Pharmacy Electronically, [facility], 152, cm, 08/01/23 10:56:00 EDT, Height, 76.8, [...] EDT, Route to Pharmacy Electronically, [facility], 152, cm, 08/01/23 10:56:00 EDT, Height, 76.8, kg, 05/16/23 10:20:00 EDT, Dry Weight Start Date: 08/24/23 Status: Ordered fluticasone 50 mcg/inh nasal spray 1 sprays, Nares, Both, 2 times a day, # 16 Gm, 0 Refills, Maintenance, 08/01/23 11:21:00 EDT, [place], [id number], Partial fill upon patient request if the prescription is for a schedule II opioid drug., 1 sprays Nares, Both 2 times a day, 152,... Start Date: 08/01/23 Status: Ordered levothyroxine 0.137 mg oral tablet 1 tablet = 137 mcg, By Mouth, Daily, # 60 tablet, 6 Refills, Maintenance, 09/16/23 19:32:00 EST, Tablet, [facility]/pharmacy #[id number], Partial fill upon patient request if [...] 05/06/23 10:17:00 EDT, Route to Pharmacy Electronically, [facility]/pharmacy #[id number], Partial fill upon patient request if the prescription is for a schedule II opioid drug... Start Date: 05/06/23 Stop Date: 04/30/24 Status: Ordered omeprazole 40 mg oral enteric coated capsule 1 capsule = 40 mg, By Mouth, Daily, # 90 capsule, 3 Refills, Maintenance, 10/09/23 16:07:00 EST, ECCapsule, [id number], Partial fill upon patient request [...] Primary Care Member Role: PCP Address: Address: [address] [place] [address] Adult & [place] [address]- Care Team Related Persons Name: TAZ BATES Address: [address] [place] [address]
--- OUTSIDE RECORDS SUMMARY | 2024-02-27 23:31 | XMS_ITS | Continuity of Care Document ---
Author Organization [facility] Address [address] [place] [address]- Care Team Providers Care Composite Assembler Name Role Phone Raphael WILDER, Ijeoma Toth Primary Care Physician [phone] Encounter [facility] Date(s): 07/26/23 - 08/25/23 [facility] [address] [place], [place] [address] Allergies, Adverse Reactions, Alerts Substance Reaction [...] acel(Tdap) 12/27/17 Given 1Result Comment: Done at [employer] 2Result Comment: Done at work Medications chlorthalidone 25 mg oral tablet 1, tablet, By Mouth, Daily, # 90 tablet, Refills 1, Maintenance, 08/20/23 0:15:00 EDT, Route to Pharmacy Electronically, [facility] ST[facility] [id number], 152, cm, 08/01/23 10:56:00 EDT, Height, 76.8, kg, 05/16/23 10:20:00 EDT, Dry Weight Start Date: 08/20/23 Status: Ordered diclofenac sodium 75 mg oral delayed release tablet 1 tablet = 75 mg, By Mouth, 2 times a day, # 28 tablet, 0 Refills, Maintenance, 07/31/23 9:53:00 EDT, [facility]/pharmacy #[id number], Partial fill upon [...] 3 Refills, Maintenance, 01/11/22 15:35:00 EDT, Tablet, [facility]/pharmacy #[id number], Partial fill upon patient request if the prescription is for a schedule II opioid drug., 152.4, cm, 01/11/22 15:23:00... Start Date: 01/11/22 Status: Ordered FLUoxetine 10 mg oral capsule 1, capsule, By Mouth, Daily, # 90 capsule, Refills 1, Maintenance, 08/24/23 9:01:00 EDT, Route to Pharmacy Electronically, [facility] ST[facility] 19024, 152, cm, 08/01/23 10:56:00 EDT, Height, 76.8, kg, 05/16/23 10:20:00 EDT, Dry Weight Start Date: 08/24/23 Status: Ordered fluticasone 50 mcg/inh nasal spray 1 sprays, Nares, Both, 2 times a day, # 16 Gm, 0 Refills, Maintenance, 08/01/23 11:21:00 EDT, [place], [facility]/pharmacy #[id number], Partial fill upon [...] 05/06/23 10:17:00 EDT, Route to Pharmacy Electronically, [facility]/pharmacy #[id number], 100 mg tab on backorder, 152.4, cm, 05/06/23 9:42:00 EDT, Height, 75.6, kg, 05/14/22 7... Start Date: 05/06/23 Stop Date: 04/30/24 Status: Ordered montelukast 10 mg oral tablet 10 mg, 1, tablet, By Mouth, Daily, # 90 tablet, Refills 3, Tot. Refills 3, Maintenance, 05/06/23 10:17:00 EDT, Route to Pharmacy Electronically, [facility]/pharmacy #[id number], Partial fill upon [...] Personnel Name: Raphael WILDER, Ijeoma Toth Position: [facility] Physician - Primary Care Member Role: PCP Address: Address: [address] [place] [address] Adult [place] [address]- Care Team Related Persons Name: TAZ BATES Address: home [address] [place] [address]
--- OUTSIDE RECORDS SUMMARY | 2024-02-27 23:31 | XMS_ITS | Continuity of Care Document ---
Author Organization [facility] Address [address] [place] [address]- Care Team Providers Care Fishing Tool Operator Name Role Phone Raphael WILDER, Ijeoma Toth Primary Care Physician Encounter [facility] Date(s): 02/13/23 - 03/16/23 [facility] [address] [place], [place] [address] Attending Physician: Manolo WILDER, Bella De Leon Allergies, Adverse Reactions, Alerts Substance Reaction Severity [...] acel(Tdap) 12/27/17 Given 1Result Comment: Done at [employer] 2Result Comment: Done at work Medications aspirin [...] 16:52:00 EST, Route to Pharmacy Electronically, [facility]/pharmacy #[id number], Partial fill upon patient request if the prescription is for a schedule II opi... Start Date: 09/24/22 Status: Ordered chlorthalidone 25 mg oral tablet 25 mg, 1, tablet, By Mouth, Daily, # 90 tablet, Refills 3, Tot. Refills 3, Maintenance, 08/13/22 12:20:00 EDT, Route to Pharmacy Electronically, [facility]/pharmacy #[id number], 152.4, cm, 08/10/22 15:55:00 EDT, Height, 75.6, kg, 05/14/22 7:15:00 EDT, Dry Weight Start Date: 08/13/22 Stop Date: 08/08/23 Status: Ordered cyclobenzaprine 10 mg oral tablet 1, tablet, By Mouth, 3 times a day, # 10 tablet, Refills 1, Maintenance, 08/27/22 7:59:00 EST, Route to Pharmacy Electronically, [facility] ST[facility] 38972, 152.4, cm, 08/10/22 15:55:00 EDT, Height, 75.6, [...] 3 Refills, Maintenance, 01/11/22 15:35:00 EDT, Tablet, [facility]/pharmacy #0693, Partial fill upon patient request if the prescription is for a schedule II opioid drug., 152.4, cm, 01/11/22 15:23:00... Start Date: 01/11/22 Status: Ordered FLUoxetine 10 mg oral capsule 10 mg, 1, capsule, By Mouth, Daily, # 90 capsule, Refills 1, Tot. Refills 1, Maintenance, 03/06/23 9:30:00 EDT, Route to Pharmacy Electronically, [facility]/pharmacy #[id number], Partial fill upon patient requestif the [...] 04/26/22 15:42:00 EDT, Route to Pharmacy Electronically, [facility]/pharmacy #0693, 100 mg tab on backorder, 152.4, cm, 03/30/22 13:46:00 EDT, Height, 73.5, kg, 12/12/21... Start Date: 04/26/22 Stop Date: 04/21/23 Status: Ordered montelukast 10 mg oral tablet 10 mg, 1, tablet, By Mouth, Daily, # 30 tablet, Refills 1, Tot. Refills 1, Maintenance, 03/06/23 9:29:00 EDT, Route to Pharmacy Electronically, [facility]/pharmacy #[id number], Partial fill upon patient request if [...] Team Personnel Name: Michelle LIN, Bailee Position: [facility] Nurse Member Role: Primary Care Nurse Name: Raphael WILDER, Ijeoma Toth Position: [facility] Physician - Primary Care Member Role: PCP Address: Address: [address] [place] [address] Adult & [place] [address]- Care Team Related Persons Name: TAZ BATES Address: [address] [place] [address]
--- OUTSIDE RECORDS SUMMARY | 2024-02-27 23:31 | XMS_ITS | Continuity of Care Document ---
Author Organization [facility] Address [address] [place] [address]- Care Team Providers Care Malt Liquors Sales Representative Name Role Phone Raphael WILDER, Ijeoma Toth Primary Care Physician [place] [facility] [place] 03/06/23 - 03/13/23 [facility] [address] [place], [place] [address] Encounter Diagnosis Asthma exacerbation(Discharge Diagnosis) - 03/06/23 Allergic rhinitis(Discharge Diagnosis) - 03/06/23 Hypertension(Discharge Diagnosis) - 03/06/23 Symptomatic menopausal or female climacteric states(Discharge Diagnosis) - 03/06/23 Obese class I(Discharge Diagnosis) - 03/06/23 Attending Physician: Ijeoma Lim MD Allergies, Adverse [...] acel(Tdap) 12/27/17 Given 1Result Comment: Done at [facility] 2Result Comment: Done at work Medications aspirin [...] 09/24/22 16:52:00 EST, Route to Pharmacy Electronically, [facility]/pharmacy #[id number], Partial fill upon patient request if the prescription is for a schedule II opi... Start Date: 09/24/22 Status: Ordered chlorthalidone 25 mg oral tablet 25 mg, 1, tablet, By Mouth, Daily, # 90 tablet, Refills 3, Tot. Refills 3, Maintenance, 08/13/22 12:20:00 EDT, Route to Pharmacy Electronically, [facility]/pharmacy #[id number], 152.4, cm, 08/10/22 15:55:00 EDT, Height, 75.6, kg, 05/14/22 7:15:00 EDT, Dry Weight Start Date: 08/13/22 Stop Date: 08/08/23 Status: Ordered cyclobenzaprine 10 mg oral tablet 1, tablet, By Mouth, 3 times a day, # 10 tablet, Refills 1, Maintenance, 08/27/22 7:59:00 EST, Route to Pharmacy Electronically, [facility] STORE 88454, 152.4, cm, 08/10/22 15:55:00 EDT, Height, 75.6, [...] 03/06/23 9:30:00 EDT, Route to Pharmacy Electronically, [facility]/pharmacy #[id number], Partial fill upon patient requestif the prescription is for a schedule II opioid eva... Start Date: 03/06/23 Stop Date: 09/02/23 Status: Ordered levothyroxine 150 mcg (0.15 mg) oral tablet See Instructions, 1 tablet By Mouth 6 days weekly and 0.5 tabs on the 7th day., # 30 each, 11 Refills, Maintenance, 11/01/22 13:39:00 EST, [facility]/pharmacy #[id number], Partial fill upon patient [...] 03/06/23 9:29:00 EDT, Route to Pharmacy Electronically, [facility]/pharmacy [...] Effective Dates Health Status Clinical Service Informant Asthma exacerbation Discharge Diagnosis 03/06/23 Allergic rhinitis Discharge Diagnosis 03/06/23 Hypertension Discharge Diagnosis 03/06/23 Symptomatic menopausal or female climacteric states Discharge Diagnosis 03/06/23 Obese class I Discharge Diagnosis 03/06/23 Vital Signs Most recent to oldest [Reference Range]: 1 Height 152.4 cm (03/06/23 8:55 AM) Weight 76.4 kg (03/06/23 8:55 AM) Oxygen Saturation [94-100 %] 97 % (03/06/23 8:55 AM) Pulse Rate [55-90 bpm] 90 bpm (03/06/23 8:55 AM) Body Mass Index [18.5-24.99 kg/m2] 32.89 kg/m2 *>HHI* (03/06/23 8:55 AM) Blood Pressure [90-138/55-84 mm Hg] 128/ 76mm Hg (03/06/23 8:55 AM) Mode of Delivery (Oxygen) Room air (03/06/23 8:55 AM) Blood pressure sites Arm, left (03/06/23 8:55 AM) Social History Social History Type Response Smoking Status Never smoker; Tobacc o user in household: No entered on: 10/01/17 Sex Note * Amanda Duran: PERFORM, SIGN, VERIFY Event Display: Patient Education/Instruction Authored Date: [id number] [facility] Clinical Summary Name ANTONI DRUMMOND Age 52 Years 1970 PCP Raphael WILDER, Ijeoma Toth PCP Visit Date 03/06/2023 08:47:00 Patient Instructions start prednisone taper for 8 days use albuterol with claritin + flonase twice daily we will?? add montelukast for asthma + allergies dsicuss with about surgery continue fluoxetine see dougie in march. we can plan for medications for weight loss Additional Instructions: Scheduled Appointments?? Future Appointments ?[facility] ?Phone:??--?Fax:??-- ?Appt. Date:??03/07/2023?3:15 PM ?Scheduled Provider:??Benny WILDER, Santos Miranda ?*[facility] ?Phone:??--?Fax:??-- ?Appt. Date:??03/21/2023?10:20 AM ?Scheduled Provider:??Plastic Surg BSA Nurse ?*[facility] ?[address] ?[place],??[place],??[address] ?Phone:??--?Fax:??-- ?Appt. Date:??03/29/2023?8:00 AM ?Scheduled Provider:??Alphonso REYES, Tracey ?*[facility] ?[address]??[place],??[place],??[address] ?Phone:??--?Fax:??-- ?Appt. Date:??05/06/2023?9:30 AM ?Scheduled Provider:??Raphael WILDER , Ijeoma Toth Follow-Up Instructions ?? Diagnosis Essential (primary) hypertension; Unspecified asthma with (acute) exacerbation; Allergic rhinitis, unspecified; Adjustment disorder with anxiety; Body mass index [BMI] 30.0-30.9, adult; Menopausal and female climacteric states; Moderate persistent asthma with (acute) exacerbation Medications: Please continue your medications until treatment is completed or stopped by your provider. Discuss any questions related to medications with your provider. New Medications [id number], [address] [place] [id number], [phone] Montelukast (montelukast 10 mg oral tablet) 1 tab(s) Oral Daily for 30 Days. Refills: 1. Next Dose: PredniSONE (predniSONE 10 mg oral tablet) 4 tab x2 days, 3 tab x 2 days, 2 tab x 2 days, 1tab x 2 days. Refills: 0. Next Dose: Medications to Continue Taking That Have Changed [facility]/pharmacy #[id number], [address] [place] [id number], [phone] - Fluoxetine (FLUoxetine 10 mg oral capsule) 1 capsule Oral Daily for 90 Days. Refills: 1. Next Dose: Medications to Continue with No [...] for 90 Days. Refills: 3. Next Dose: Cyclobenzaprine (cyclobenzaprine 10 mg oral tablet) 1 tab(s) Oral 3 times a day. Refills: 1. Next Dose: Estradiol (Estrace 1 mg oral tablet) 1 tab(s) Oral Daily. Next Dose: Famotidine (famotidine 40 mg oral tablet) 1 tab(s) Oral Daily at Bedtime. Refills: 3. Next Dose: Levothyroxine (levothyroxine 150 mcg (0.15 mg) oral tablet) 1 tablet By Mouth 6 days weekly and 0.5tabs on the 7th day.. Refills: 11. Next Dose: Losartan (losartan 50 mg oral tablet) 1 tab(s) Oral Daily for 90 Days. Refills: 3. Next Dose: Rosuvastatin (rosuvastatin 20 mg oral tablet) 1 tab(s) Oral Daily. Refills: 3. Next Dose: Sucralfate (Carafate 1 gm oral tablet) 1 tab(s) Oral twice a day. Refills: 0. Next Dose: Allergy Info:?? Latex; penicillin Medications Given This Visit Future Orders ?No future orders Vital Signs Height 152.4 cm Weight 76.4 kg BMI 32.89 kg/m2 Blood Pressure 128 mm Hg/76 mm Hg Temperature Pulse Rate 90 bpm Respiratory Rate 02 Sat Mode of Delivery 97 %/Room air You can now view a summary of your hospital visit from the comfort of your home through a free online portal called [facility]. [facility] is a website that allows you to securely view your medical information including discharge summary, medications and follow-up visits. ??You can alsosend a secure electronic message to your doctor???s office to request appointments, renew medications or just ask a question. You can enroll at [email or web address] or register during your next office visit. [...] primary care provider, you may find a [facility] provider by calling [facility] [employer] Link at [phone]. For information about the plan of care [...] Team Personnel Name: Michelle LIN, Bailee Position: [facility] Nurse Member Role: Primary Care Nurse Name: Raphael WILDER, Ijeoma Toth Position: [facility] Physician - Primary Care Member Role: PCP Address: Address: [address] [place] [address] Adult & [place] [address]- Care Team Related Persons Name: TAZ BATES Address: [address] [address]
--- OUTSIDE RECORDS SUMMARY | 2024-02-27 23:31 | XMS_ITS | Continuity of Care Document ---
Author Organization [facility] Address [address] [place] [address]- Care Team Providers Care Fleet Driver Name Role Phone Ijemoa Lim MD Primary Care Physician Encounter [facility] Date(s): 04/18/22 - 05/18/22 [facility] [address] [place], [place] [address] Allergies, Adverse Reactions, Alerts Substance [...] acel(Tdap) 12/27/17 Given 1Result Comment: Done at [employer] 2Result Comment: Done at work Medications [...] Refills, Maintenance, 01/11/22 15:35:00 EDT, Tablet, [facility]/pharmacy #[id number], Partial fill upon patient request [...] 15:42:00 EDT, Route to Pharmacy Electronically, [facility]/pharmacy #[id number], 100 mg tab on backorder, 152.4, cm, 03/30/22 13:46:00 EDT, Height, 73.5, kg, 12/12/21... Start Date: 04/26/22 Stop Date: 04/21/23 Status: Ordered oxyCODONE 5 mg oral tablet 5 mg, 1, tablet, By Mouth, Every 6 hours, PRN, # 5 tablet, Refills 0, Tot. Refills 0, Acute 05/19/22 7:40:00 EDT, as needed for pain, 05/14/22 7:39:00 EDT, Route to Pharmacy Electronically, [facility]/pharmacy #[id number], Partial fill upon patient request, 152.4,... Start Date: 05/14/22 Stop Date: 05/19/22 Status: Ordered rosuvastatin 20 mg oral tablet 1 tablet = 20 mg, By Mouth, Daily, # 90 tablet, 0 Refills, Maintenance, 04/27/22 17:16:00 EDT, [facility]/pharmacy #[id number], familial hyperlipidemia. pravastatin not effective., 152.4, cm, 03/30/22 13:46:00 EDT, Height, 73.5, kg, 12/12/21 9:43:00 EST, Dry Weight Start Date: 04/27/22 Stop Date: 07/26/22 Status: Ordered Vitamin D3 1000 intl units oral capsule 1 capsule = 1,000 [employer], By Mouth, Daily, # 90 capsule, 3 Refills, Maintenance, 07/12/21 15:00:00 EDT, Capsule, [facility]/pharmacy #[id number], 152.4, cm, 07/12/21 14:27:00 [...]
--- OUTSIDE RECORDS SUMMARY | 2024-02-27 23:31 | XMS_ITS | Continuity of Care Document ---
Author Organization [facility] Address [address] [place] [address]- Care Team Providers Care Transportation Lead Name Role Phone Ijeoma Lim MD Primary Care Physician [phone] [place] [facility] [place] 01/09/21 [facility] [address] [place], [place] [address] Allergies, Adverse Reactions, Alerts Substance Reaction Severity [...] 13:54:00 EDT, Inhaler, Route to Pharmacy Electronically, [id number], [id number], 152, cm, 01/18/20 9:51:00 EDT, [...] tablet, 1 Refills, Maintenance, 12/20/20 13:28:00 EST, [facility]/pharmacy #[id number], labs needed, 152, cm, 09/14/20 10:51:00 EST, Height, 67.27, kg, 01/26/19 8:44:00 EDT, Dry Weight Start Date: 12/20/20 Status: Ordered losartan 50 mg oral tablet 50 mg, 1, tablet, By Mouth, Daily, # 90 tablet, Refills 3, Tot. Refills 3, Maintenance, 01/21/20 9:57:00 EDT, Route to Pharmacy Electronically, [facility]/pharmacy #[id number], 100 mg tab on backorder, 152, cm, 01/18/20 9:51:00 EDT, Height, 67.27, kg, 01/26/19 8:4... Start Date: 01/21/20 Stop Date: 01/15/21 Status: Ordered omeprazole 20 mg oral enteric coated capsule 1 capsule = 20 mg, By Mouth, Daily, # 90 capsule, 3 Refills, Maintenance, 05/26/20 15:26:00 EDT, ECCapsule, [facility]/pharmacy #[id number], 152, cm, 03/16/20 15:37:00 EDT, Height, 67.27, kg, 01/26/19 8:44:00 EDT, Dry Weight Start Date: 05/26/20 Status: Ordered pravastatin 40 mg oral tablet 1 tablet = 40 mg, By Mouth, Daily, # 30 tablet, 5 Refills, Maintenance, 07/26/20 10:27:00 EDT, Tablet, [facility]/pharmacy #[id number], 152, cm, 10/06/20 10:00:00 EDT, Height, 67.27, kg, 01/26/19 8:44:00 [...]
--- OUTSIDE RECORDS SUMMARY | 2024-02-27 23:31 | XMS_ITS | Continuity of Care Document ---
Author Organization [facility] Address [address] [place] [address]- Care Team Providers Care Business Services Officer Name Role Phone Ijeoma Lim MD Primary Care Physician [phone] [place] [facility] [place]23 [place] 10/16/23 [facility] [address] [place] [address] Allergies, Adverse Reactions, Alerts Substance Reaction [...] acel(Tdap) 12/27/17 Given 1Result Comment: Done at [employer] 2Result Comment: Done at work Medications barium sulfate 2% oral suspension See Instructions, dispense 2 bottles 1st bottle 6 hrs before & 2nd bottle [address], # 2each, 0 Refills, Maintenance, 09/13/23 9:28:00 EST, [facility]/pharmacy #[id number], Partial fill upon patient request if the prescription is for a schedule II opioid... Start Date: 09/13/23 Status: Ordered chlorthalidone 25 mg oral tablet 1, tablet, By Mouth, Daily, # 90 tablet, Refills 1, Maintenance, 08/20/23 0:15:00 EDT, Route to [facility]ically, [facility], 152, cm, 08/01/23 10:56:00 EDT, Height, 76.8, kg, 05/16/23 10:20:00 EDT, Dry Weight Start Date: 08/20/23 Status: Ordered docusate sodium 100 mg oral capsule 100 mg, 1, capsule, By Mouth, 2 times a day, # 60 capsule, Refills 1, Tot. Refills 1, Maintenance, 09/13/23 9:07:00 EST, Route to Pharmacy Electronically, [facility]/pharmacy #[id number], Partial fill upon patient request [...] EDT, Route to [facility] Electronically, [facility], 152, cm, 08/01/23 10:56:00 EDT, Height, 76.8, kg, 05/16/23 10:20:00 EDT, Dry Weight Start Date: 08/24/23 Status: Ordered fluticasone 50 mcg/inh nasal spray 1 sprays, Nares, Both, 2 times a day, # 16 Gm, 0 Refills, Maintenance, 08/01/23 11:21:00 EDT, [place], [facility]/pharmacy #[id number], Partial fill upon patient request if the prescription is for a schedule II opioid drug., 1 sprays Nares, Both 2 times a day, 152,... Start Date: 08/01/23 Status: Ordered levothyroxine 0.137 mg oral tablet 1 tablet = 137 mcg, By Mouth, Daily, # 60 tablet, 6 Refills, Maintenance, 09/16/23 19:32:00 EST, Tablet, [facility]/pharmacy #[id number], Partial fill upon patient request if the prescription is for a schedule IIopioid drug., 152, cm, 09/13/23 8:42:00 EST, Height... Start Date: 09/16/23 Stop Date: 11/09/24 Status: Ordered losartan 50 mg oral tablet 50 mg, 1, tablet, By Mouth, Daily, # 90 tablet, Refills 3, Tot. Refills 3, Maintenance, 05/06/23 10:17:00 EDT, Route to Pharmacy Electronically, [facility]/pharmacy #[id number], 100 mg tab on backorder, 152.4, cm, 05/06/23 9:42:00 EDT, Height, 75.6, kg, 05/14/22 7... Start Date: 05/06/23 Stop Date: 04/30/24 Status: Ordered montelukast 10 mg oral tablet 10 mg, 1, tablet, By Mouth, Daily, # 90 tablet, Refills 3, Tot. Refills 3, Maintenance, 05/06/23 10:17:00 EDT, Route to Pharmacy Electronically, [facility]/pharmacy #[id number], Partial fill upon patient request if the prescription is for a schedule II opioid drug... Start Date: 05/06/23 Stop Date: 04/30/24 Status: Ordered omeprazole 40 mg oral enteric coated capsule 1 capsule = 40 mg, By Mouth, Daily, # 90 capsule, 3 Refills, Maintenance, 10/09/23 16:07:00 EST, ECCapsule, [facility]/pharmacy #[id number], Partial fill upon patient request if the prescription is for a schedule II opioid drug., 152, cm, 10/09/23 15:44:00 EST, H... Start Date: 10/09/23 Stop Date: 10/03/24 Status: Ordered rosuvastatin 20 mg oral tablet 1 tablet, By Mouth, Daily, # 90 tablet, 3 Refills, Maintenance, 01/09/23 9:26:00 EDT, [facility]/pharmacy #[id number], 152.4, cm, 01/09/23 8:53:00 EDT, [...] Care Member Role: PCP Address: Address: [address] [place] [address] Adult [place] [address]- Care Team Related Persons Name: TAZ BATES Address: home [address] [place] [address]
--- OUTSIDE RECORDS SUMMARY | 2024-02-27 23:31 | XMS_ITS | Continuity of Care Document ---
Author Organization [facility] Address [address] [place] [address]- Care Team Providers Care Windows Infrastructure Engineer Name Role Phone Raphael WILDER, Ijeoma Toth Primary Care Physician [facility] Date(s): 07/22/23 - 08/21/23 [facility] [address] [place], [place] [address] Allergies, Adverse Reactions, Alerts [...] acel(Tdap) 12/27/17 Given 1Result Comment: Done at [employer] 2Result Comment: Done at work Medications chlorthalidone 25 mg oral tablet 1, tablet, By Mouth, Daily, # 90 tablet, Refills 1, Maintenance, 08/20/23 0:15:00 EDT, Route to Pharmacy Electronically, [id number], 152, cm, 08/01/23 10:56:00 EDT, Height, 76.8, kg, 05/16/23 10:20:00 EDT, Dry Weight Start Date: 08/20/23 Status: Ordered diclofenac sodium 75 mg oral delayed release tablet 1 tablet = 75 mg, By Mouth, 2 times a day, # 28 tablet, 0 Refills, Maintenance, 07/31/23 9:53:00 EDT, [facility]/pharmacy #[id number], Partial fill [...] 03/06/23 9:30:00 EDT, Route to Pharmacy Electronically, [facility]/pharmacy #[id number], Partial fill upon patient requestif the prescription is for a schedule II opioid eva... Start Date: 03/06/23 Stop Date: 09/02/23 Status: Ordered fluticasone 50 mcg/inh nasal spray 1 sprays, Nares, Both, 2 times a day, # 16 Gm, 0 Refills, Maintenance, 08/01/23 11:21:00 EDT, [place], [facility]/pharmacy #[id number], Partial fill [...] 05/06/23 10:17:00 EDT, Route to Pharmacy Electronically, [facility]/pharmacy #[id number], 100 mg tab on backorder, 152.4, cm, 05/06/23 9:42:00 EDT, Height, 75.6, kg, 05/14/22 7... Start Date: 05/06/23 Stop Date: 04/30/24 Status: Ordered montelukast 10 mg oral tablet 10 mg, 1, tablet, By Mouth, Daily, # 90 tablet, Refills 3, Tot. Refills 3, Maintenance, 05/06/23 10:17:00 EDT, Route to Pharmacy Electronically, [facility]/pharmacy #[id number], Partial fill [...] Care Member Role: PCP Address: Address: [address] [place] [address] Adult & [place] [address]- Care Team Related Persons Name: TAZ BATES Address: [address] [place] [address]
--- OUTSIDE RECORDS SUMMARY | 2024-02-27 23:31 | XMS_ITS | Continuity of Care Document ---
Author Organization [facility] Address [address] [place] [address]- Care Team Providers Care Anti Air Warfare Operations Officer Name Role Phone Raphael WILDER, Ijeoma Toth Primary Care Physician [phone] Encounter [facility] Date(s): 08/05/23 - 09/04/23 [facility] [address] [place] [address] Allergies, Adverse Reactions, Alerts Substance Reaction Severity [...] acel(Tdap) 12/27/17 Given 1Result Comment: Done at [employer] 2Result Comment: Done at work Medications chlorthalidone 25 mg oral tablet 1, tablet, By Mouth, Daily, # 90 tablet, Refills 1, Maintenance, 08/20/23 0:15:00 EDT, Route to Pharmacy Electronically, [facility], 152, cm, 08/01/23 10:56:00 EDT, Height, 76.8, kg, 05/16/23 10:20:00 EDT, Dry Weight Start Date: 08/20/23 Status: Ordered diclofenac sodium 75 mg oral delayed release tablet 1 tablet = 75 mg, By Mouth, 2 times a day, # 28 tablet, 0 Refills, Maintenance, 07/31/23 9:53:00 EDT, [facility]/pharmacy #[id number], Partial fill upon patient request [...] Refills, Maintenance, 01/11/22 15:35:00 EDT, Tablet, [facility]/pharmacy #[id number], Partial fill upon patient request if the prescription is for a schedule II opioid drug., 152.4, cm, 01/11/22 15:23:00... Start Date: 01/11/22 Status: Ordered FLUoxetine 10 mg oral capsule 1, capsule, By Mouth, Daily, # 90 capsule, Refills 1, Maintenance, 08/24/23 9:01:00 EDT, Route to Pharmacy Electronically, [facility] 316[facility], 152, cm, 08/01/23 10:56:00 EDT, Height, 76.8, kg, 05/16/23 10:20:00 EDT, Dry Weight Start Date: 08/24/23 Status: Ordered fluticasone 50 mcg/inh nasal spray 1 sprays, Nares, Both, 2 times a day, # 16 Gm, 0 Refills, Maintenance, 08/01/23 11:21:00 EDT, [place], [facility]/pharmacy #[id number], Partial fill upon patient request [...] 10:17:00 EDT, Route to Pharmacy Electronically, [facility]/pharmacy #[id number], 100 mg tab on backorder, 152.4, cm, 05/06/23 9:42:00 EDT, Height, 75.6, kg, 05/14/22 7... Start Date: 05/06/23 Stop Date: 04/30/24 Status: Ordered montelukast 10 mg oral tablet 10 mg, 1, tablet, By Mouth, Daily, # 90 tablet, Refills 3, Tot. Refills 3, Maintenance, 05/06/23 10:17:00 EDT, Route to Pharmacy Electronically, [facility]/pharmacy #[id number], Partial fill upon patient request [...] Primary Care Member Role: PCP Address: Address: [address] [place] [address] Adult & [place] [address]- Care Team Related Persons Name: TAZ BATES Address: home [address] [place] [address]
--- OUTSIDE RECORDS SUMMARY | 2024-02-27 23:31 | XMS_ITS | Continuity of Care Document ---
Author Organization [facility] Address [address] [place] [address]- Care Team Providers Care Peoplesoft Business Analyst Name Role Phone Ijeoma Lim MD Primary Care Physician En[place] [facility] [place] [id number] Date(s): 11/26/19 - 12/03/19 [facility] [address] [place] [address]- [facility] Attending Physician: Ijeoma Lim MD Allergies, Adverse Reactions, Alerts Substance Reaction Severity Status penicillin ITCHY Active Latex RASH, ÁLVAREZ AND ITCHES Activ e Immunizations Given and Recorded Vaccine Date Status Refusal Reason Influenza Virus Vaccine (oldterm) 08/27/19 Recorde d pneumococcal 23-valent vaccine 02/17/19 Given influenza virus vaccine, inactivated 12/27/17 Give n tetanus/diphtheria/pertussis, acel(Tdap) 12/27/17 Given Medications aspirin 81 mg oral delayed release tablet 81 mg, 1, tablet, By Mouth, Daily, # 30 tablet, Refills 11, Tot. Refills 11, Maintenance, 02/17/19 17:50:07 EDT, Route to Pharmacy Electronically, [id number], [id number] Start Date: 02/17/19 Status: Ordered chlorthalidone 25 mg oral tablet 25 mg, 1, tablet, By Mouth, Daily, # 30 tablet, Refills 11, Tot. Refills 11, Maintenance, 02/17/19 17:50:09 EDT, Route to Pharmacy Electronically, [id number], [id number] Start Date: 02/17/19 Status: Ordered ferrous sulfate 325 mg oral tablet 1 tablet = 325 mg, By Mouth, Daily, Please take Saturday, Saturday, Saturday, # 90 tablet, 3 Refills, Maintenance, 04/06/19 11:47:50 EDT, Tablet Start Date: 04/06/19 Status: Ordered levothyroxine 175 mcg (0.175 mg) oral tablet See Instructions, 1 tablet By Mouth , nothing on Sundays, # 30 tablet, 11 Refills, Maintenance, 03/30/19 16:44:08 EDT, Tablet Start Date: 03/30/19 Status: Ordered losartan 100 mg oral tablet 1 tablet = 100 mg, By Mouth, Daily, # 30 tablet, 11 Refills, Maintenance, 02/17/19 17:50:08 EDT, Tablet Start Date: 02/17/19 Status: Ordered NIFEdipine 90 mg oral tablet, extended release 90 mg, 1, tablet, By Mouth, Daily, # 30 tablet, Refills 11, Tot. Refills 11, Maintenance, 02/17/19 17:50:07 EDT, Route to Pharmacy Electronically, [id number], [facility]/pharmacy #[id number] Start Date: 02/17/19 Stop Date: 02/12/20 Status: Ordered omeprazole 20 mg oral delayed release tablet 1 tablet = 20 mg, By Mouth, Daily, # 60 tablet, 11 Refills, Maintenance, 08/03/19 16:23:53 EDT, EC Tablet, [facility]/pharmacy #[id number], May subsitute capsule as needed by insurance Start Date: 08/03/19 Status: Ordered pravastatin 40 mg oral tablet 1 tablet = 40 mg, By Mouth, Daily, # 30 tablet, 11 Refills, Maintenance, 02/17/19 17:50:08 EDT, Tablet Start Date: 02/17/19 Status: Ordered Ventolin 90 mcg Inhaler 2, puffs, Inhalation, Every 4 hours, PRN, Refills 0, Maintenance, 11/05/18 8:25:30 EST, Inhaler Start Date: 11/05/18 Status: Ordered Vitamin D3 1000 intl units oral capsule 1 capsule = 1,000 International_Units, By Mouth, Daily, # 75 capsule, 6 Refills, Maintenance, 04/06/19 11:48:49 EDT, Capsule Start Date: 04/06/19 Status: Ordered Problem List Condition Effective Dates Status Health Status Inform ant Abnormal uterine bleeding (AUB)(Confirmed) Active Asthma(Confirmed) Active Chronic back pain(Confirmed) Active GERD (gastroesophageal reflu x disease)(Confirmed) Active Hypertension(Confirmed) Active Hypothyroidism(Confirmed) Active Encounter for IUD removal(Confirmed) Active Papillary thyroid carcinoma - s/p total thyroidectomy 11/12/2018(Confirmed) Active PVCs (premature ventricular contractions)(Confirmed) Active Procedures Procedure Date Related Diagnosis Body Site Status delivery 1996 ed Vital Signs Most recent to oldest [Reference Range]: 1 Height 152 cm (11/26/19 1:43 PM) Weight 73.1 kg (11/26/19 1:43 PM) Oxygen Saturation [94-100 %] 98 % (11/26/19 1:43 PM) Pulse Rate [55-90 bpm] 83 bpm (11/26/19 1:43 PM) Body Mass Index [18.5-24.99] 31.64 *>HHI* (11/26/19 1:43 PM) Blood Pressure [90-138/55-84 mm Hg] 120/ 74mm Hg (11/26/19 1:43 PM) Mode of Delivery (Oxygen) Room air (11/26/19 1:43 PM) Blood pressure sites Arm, left (11/26/19 1:43 PM) Social History Social History Type Response Smoking Status Never smoker; Tobacc o user in household: No entered on: 10/01/17 Sex
--- OUTSIDE RECORDS SUMMARY | 2024-02-27 23:31 | XMS_ITS | Continuity of Care Document ---
Author Organization [facility] Address [address] [place] [address]- Care Team Providers Care Marketing Production Manager Name Role Phone Raphael WILDER, Ijeoma Toth Primary Care Physician [phone] Encounter [facility] Date(s): 07/10/22 - 08/09/22 [facility] [address] [place], [place] [address] Allergies, Adverse Reactions, Alerts Substance [...] acel(Tdap) 12/27/17 Given 1Result Comment: Done at [employer] 2Result Comment: Done at work Medications aspirin [...] 3 Refills, Maintenance, 01/11/22 15:35:00 EDT, Tablet, [facility]/pharmacy #[id number], Partial fill upon patient request if the prescription is for a schedule II opioid drug., 152.4, cm, 01/11/22 15:23:00... Start Date: 01/11/22 Status: Ordered levothyroxine 0.137 mg oral tablet See Instructions, 1 tablet By Mouth 6 days per week and 1/2 pill on day 7, # 90 each, 3 Refills, Maintenance, 07/20/22 8:57:00 EDT, Tablet, [facility]/pharmacy #[id number], Partial fill upon patient request if the prescription is for a schedule II opioid drug., 15... Start Date: 07/20/22 Status: Ordered losartan 50 mg oral tablet 50 mg, 1, tablet, By Mouth, Daily, # 90 tablet, Refills 3, Tot. Refills 3, Maintenance, 04/26/22 15:42:00 EDT, Route to Pharmacy Electronically, [facility]/pharmacy #[id number], 100 mg tab on backorder, [...] Sex Patient Care team information Personnel Name: Raphael WILDER, Ijeoma Toth Address: Address: [address] [place] [address] Adult & Pediatric [address]
--- OUTSIDE RECORDS SUMMARY | 2024-02-27 23:31 | XMS_ITS | Continuity of Care Document ---
Author Organization [facility] Address [address] [place] [address]- Care Team Providers Care Senior Pricing Analyst Name Role Phone Raphael WILDER, Ijeoma Toth Primary Care Physician [facility] Date(s): 05/04/20 - 06/03/20 [facility] [address] [place] [address]- [facility] Allergies, Adverse Reactions, Alerts Substance Reaction Severity [...] 13:54:00 EDT, Inhaler, Route to Pharmacy Electronically, [id number], [facility]/pharmacy #[id number], 152, cm, 01/18/20 9:51:00 EDT, [place]... Start Date: 02/12/20 Status: Ordered aspirin 81 mg oral delayed release tablet 81 mg, 1, tablet, By Mouth, Daily, # 30 tablet, Refills 5, Tot. Refills 5, Maintenance, 02/15/20 15:17:00 EDT, [facility] to [facility], [id number], 152, cm, 01/18/20 9:51:00 EDT, Height, 67.27, kg, 01/26/19 8:44:00 EDT, Dry Weight Start Date: 02/15/20 Status: Ordered chlorthalidone 25 mg oral tablet 25 mg, 1, tablet, By Mouth, Daily, # 30 tablet, Refills 5, Tot. Refills 5, Maintenance, 02/15/20 15:17:00 EDT, Route to Pharmacy Electronically, [facility]/pharmacy #[id number], 152, cm, 01/18/20 9:51:00 EDT, [...] tablet, 0 Refills, Maintenance, 05/25/20 9:12:00 EDT, [facility]/pharmacy #[id number], labs needed, 152, cm, 03/16/20 15:37:00 EDT, Height, 67.27, kg, 01/26/19 8:44:00 EDT, Dry Weight Start Date: 05/25/20 Status: Ordered losartan 50 mg oral tablet 100 mg, 2, tablet, By Mouth, Daily, # 180 tablet, Refills 3, Tot. Refills 3, Maintenance, 01/21/20 9:57:00 EDT, Route to Pharmacy Electronically, [facility]/pharmacy #[id number], 100 mg tab on backorder, 152, cm,01/18/20 9:51:00 EDT, Height, 67.27, kg, 01/26/19 8... Start Date: 01/21/20 Stop Date: 01/15/21 Status: Ordered NIFEdipine 90 mg oral tablet, extended release 90 mg, 1, tablet, By Mouth, Daily, # 30 tablet, Refills 5, Tot. Refills 5, Maintenance, 02/15/20 15:17:00 EDT, Route to Pharmacy Electronically, [facility]/pharmacy #[id number], 152, cm, 01/18/20 9:51:00 EDT, [...] 5 Refills, Maintenance, 02/15/20 15:18:00 EDT, Tablet, [id number], 152, cm, 01/18/20 9:51:00 EDT, Height, 67.27, kg, 01/26/19 8:44:00 EDT, Dry Weight Start Date: 02/15/20 Status: Ordered Vitamin D3 1000 intl units oral capsule 1 capsule = 1,000 International_Units, By Mouth, Daily, # 90 capsule, 3 Refills, Maintenance, 05/25/20 10:43:00 EDT, Capsule, [facility]/pharmacy #[id number], 152, cm, 03/16/20 15:37:00 EDT, [...]
--- OUTSIDE RECORDS SUMMARY | 2024-02-27 23:31 | XMS_ITS | Continuity of Care Document ---
Author Organization [facility] Address [address] [place] [address]- Care Team Providers Care Cloth Edge Singer Name Role Phone Raphael WILDER, Ijeoma Toth Primary Care Physician Encounter [facility] Date(s): 11/13/23 - 12/13/[address] [address]- Allergies, Adverse Reactions, Alerts Substance Reaction Severity [...] acel(Tdap) 12/27/17 Given 1Result Comment: Done at [employer] 2Result Comment: Done at work Medications barium sulfate 2% oral suspension See Instructions, dispense 2 bottles 1st bottle 6 hrs before & 2nd bottle [address], # 2each, 0 Refills, Maintenance, 09/13/23 9:28:00 EST, [facility]/pharmacy #[id number], Partial fill upon patient request if the prescription is for a schedule II opioid... Start Date: 09/13/23 Status: Ordered chlorthalidone 25 mg oral tablet 1, tablet, By Mouth, Daily, # 90 tablet, Refills 1, Maintenance, 08/20/23 0:15:00 EDT, Route to [facility] Electronically, [facility], 152, cm, 08/01/23 10:56:00 EDT, Height, 76.8, kg, 05/16/23 10:20:00 EDT, Dry Weight Start Date: 08/20/23 Status: Ordered docusate sodium 100 mg oral capsule 100 mg, 1, capsule, By Mouth, 2 times a day, # 60 capsule, Refills 1, Tot. Refills 1, Maintenance, 09/13/23 9:07:00 EST, Route to Pharmacy Electronically, [facility]/pharmacy [...] EDT, Route to Pharmacy Electronically, [facility], 152, cm, 08/01/23 10:56:00 EDT, Height, 76.8, kg, 05/16/23 10:20:00 EDT, Dry Weight Start Date: 08/24/23 Status: Ordered fluticasone 50 mcg/inh nasal spray 1 sprays, Nares, Both, 2 times a day, # 16 Gm, 0 Refills, Maintenance, 08/01/23 11:21:00 EDT, [place], [facility]/pharmacy #[id number], Partial fill upon patient [...] Care Member Role: PCP Address: Address: [address] [place] [address] Adult [place] [address]- Care Team Related Persons Name: TAZ BATES Address: home [address] [place] [address]
--- OUTSIDE RECORDS SUMMARY | 2024-02-27 23:31 | XMS_ITS | Continuity of Care Document ---
Author Organization [facility] Address [address] [place] [address]- Care Team Providers Care Application Architect Manager Name Role Phone Ijeoma Lim MD Primary Care Physician [place] [facility] [place] 02/27/22 [facility] [address] [place], [place] [address] Allergies, Adverse Reactions, Alerts Substance Reaction [...] 14:40:00 EST, Route to Pharmacy Electronically, [facility], 152.4, cm, 07/12/21 14:27:00 EDT, [...] 5 Refills, Maintenance, 07/26/20 10:27:00 EDT, Tablet, [facility]/pharmacy #[id number], 152, cm, 07/26/20 10:00:00 EDT, [...]
--- OUTSIDE RECORDS SUMMARY | 2024-02-27 23:31 | XMS_ITS | Continuity of Care Document ---
Author Organization [facility] Address [address] [place] [address] [address] [place] [address]- Care Team Providers Care Raftsman Name Role Phone Ijeoma Lim MD Primary Care Physician [facility] Date[facility]s): 06/26/23 - 07/26/23 [facility] [address] [place], [place] [address] Attending Physician: Admtr, Gloria Admitting Physician: AdmtrGloria Referring Physician: Admtr, [id number] [...] 08/13/22 12:20:00 EDT, Route to Pharmacy Electronically, [facility]/pharmacy #[id number], 152.4, cm, 08/10/22 15:55:00 [...] 3 Refills, Maintenance, 01/11/22 15:35:00 EDT, Tablet, [facility]/pharmacy #[id number], Partial fill upon patient request if the prescription is for a schedule II opioid drug., 152.4, cm, 01/11/22 15:23:00... Start Date: 01/11/22 Status: Ordered FLUoxetine 10 mg oral capsule 10 mg, 1, capsule, By Mouth, Daily, # 90 capsule, Refills 1, Tot. Refills 1, Maintenance, 03/06/23 9:30:00 EDT, Route to Pharmacy Electronically, [facility]/pharmacy #[id number], Partial fill upon [...] 05/06/23 10:17:00 EDT, Route to Pharmacy Electronically, [facility]/pharmacy #[id number], 100 mg tab on backorder, 152.4, cm, 05/06/23 9:42:00 EDT, Height, 75.6, kg, 05/14/22 7... Start Date: 05/06/23 Stop Date: 04/30/24 Status: Ordered montelukast 10 mg oral tablet 10 mg, 1, tablet, By Mouth, Daily, # 90 tablet, Refills 3, Tot. Refills 3, Maintenance, 05/06/23 10:17:00 EDT, Route to Pharmacy Electronically, [facility]/pharmacy #[id number], Partial fill upon patient request if the prescription is for a schedule II opioid drug... Start Date: 05/06/23 Stop Date: 04/30/24 Status: Ordered potassium chloride 20 mEq oral tablet, extended release 1 tablet = 20 mEq, By Mouth, Daily, # 30 tablet, 1 Refills, Maintenance, 05/11/23 22:39:00 EDT, ER Tablet, [facility]/pharmacy #[id number], Partial fill upon [...] 3 Refills, Maintenance, 01/09/23 9:26:00 EDT, Capsule, [facility]/pharmacy #[id number], 152.4, cm, 01/09/23 [...] Primary Care Member Role: PCP Address: Address: [address] [place] [address] Adult [place] [address]- Care Team Related Persons Name: TAZ BATES Address: home [address] [place] [address]
--- OUTSIDE RECORDS SUMMARY | 2024-02-27 23:31 | XMS_ITS | Continuity of Care Document ---
Author Organization [facility] Address [address] [place] [address]- Care Team Providers Care Manager Mortgage Name Role Phone Raphael WILDER, Ijeoma Toth Primary Care Physician [phone] [facility]counter [facility] Date(s): 03/05/23 - 04/04/23 [facility] [address] [place], [place] [address] Allergies, Adverse Reactions, Alerts Substance Reaction Severity [...] acel(Tdap) 12/27/17 Given 1Result Comment: Done at [employer] 2Result Comment: Done at work Medications aspirin [...] 09/24/22 16:52:00 EST, Route to Pharmacy Electronically, [facility]/pharmacy #[id number], Partial fill upon patient request if the prescription is for a schedule II opi... Start Date: 09/24/22 Status: Ordered chlorthalidone 25 mg oral tablet 25 mg, 1, tablet, By Mouth, Daily, # 90 tablet, Refills 3, Tot. Refills 3, Maintenance, 08/13/22 12:20:00 EDT, Route to Pharmacy Electronically, [facility]/pharmacy #[id number], 152.4, cm, 08/10/22 [...] Refills, Maintenance, 01/11/22 15:35:00 EDT, Tablet, [facility]/pharmacy #[id number], Partial fill upon patient request if the prescription is for a schedule II opioid drug., 152.4, cm, 01/11/22 15:23:00... Start Date: 01/11/22 Status: Ordered FLUoxetine 10 mg oral capsule 10 mg, 1, capsule, By Mouth, Daily, # 90 capsule, Refills 1, Tot. Refills 1, Maintenance, 03/06/23 9:30:00 EDT, [facility] each, 11 Refills, Maintenance, 11/01/22 13:39:00 EST, [facility]/pharmacy #[id number], Partial fill upon patient request if theprescription is for a schedule II opioid drug., 152... Start Date: 11/01/22 Status: Ordered losartan 50 mg oral tablet 50 mg, 1, tablet, By Mouth, Daily, # 90 tablet, Refills 3, Tot. Refills 3, Maintenance, 04/26/22 15:42:00 EDT, Route to Pharmacy Electronically, [facility]/pharmacy #[id number], 100 mg tab on backorder, 152.4, cm, 03/30/22 13:46:00 EDT, Height, 73.5, kg, 12/12/21... Start Date: 04/26/22 Stop Date: 04/21/23 Status: Ordered montelukast 10 mg oral tablet 10 mg, 1, tablet, By Mouth, Daily, # 30 tablet, Refills 1, Tot. Refills 1, Maintenance, 03/06/23 9:29:00 EDT, Route to Pharmacy Electronically, [facility]/pharmacy #[id number], Partial fill upon patient request if the prescription is for a schedule II opioid drug.... Start Date: 03/06/23 Stop Date: 05/05/23 Status: Ordered rosuvastatin 20 mg oral tablet 1 tablet, By Mouth, Daily, # 90 tablet, 3 Refills, Maintenance, 01/09/23 9:26:00 EDT, [facility]/pharmacy #[id number], 152.4, [...] Team Personnel Name: Michelle LIN, Bailee Position: [facility] AMB Nurse Member Role: Primary Care Nurse Name: Raphael WILDER, Ijeoma Toth Position: [facility] Physician - Primary Care Member Role: PCP Address: Address: [address] [place] [address] Adult & [place] [address]- Care Team Related Persons Name: JANA TAZ Address: home [address] [place] [address]
--- OUTSIDE RECORDS SUMMARY | 2024-02-27 23:31 | XMS_ITS | Continuity of Care Document ---
Author Organization [facility] Address [address] [place] [address]- Care Team Providers Care Take Away Attendant Name Role Phone Raphael WILDER, Ijeoma Toth Primary Care Physician Encounter [facility] Date(s): 09/14/20 - 10/14/20 [facility] [address] [place], [place] [address] Attending Physician: Gloria [place] Admitting Physician: Gloria [place] Referring Physician: AdmtrGloria Allergies, Adverse Reactions, Alerts Substance Reaction Severity [...] 13:54:00 EDT, Inhaler, Route to Pharmacy Electronically, [id number], [facility]/pharmacy #[id number], 152, cm, 01/18/20 9:51:00 EDT, [place]... Start Date: 02/12/20 Status: Ordered Aspirin Enteric Coated 81 mg oral delayed release tablet 1 tablet, By Mouth, Daily, # 90 tablet, 3 Refills, Maintenance, 08/19/20 9:23:00 EDT, [facility] STORE [id number], 152, cm, 07/26/20 10:00:00 EDT, Height, 67.27, kg, 01/26/19 8:44:00 EDT, Dry Weight Start Date: 08/19/20 Status: Ordered chlorthalidone 25 mg oral tablet 25 mg, 1, tablet, By Mouth, Daily, # 90 tablet, Refills 3, Tot. Refills 3, Maintenance, 07/07/20 14:00:00 EDT, Route to Pharmacy Electronically, [facility]/pharmacy #[id number], 152, cm, 03/16/20 15:37:00 EDT, [...] tablet, 0 Refills, Maintenance, 05/25/20 9:12:00 EDT, [facility]/pharmacy #[id number], labs needed, 152, cm, 03/16/20 15:37:00 EDT, Height, 67.27, kg, 01/26/19 8:44:00 EDT, Dry Weight Start Date: 05/25/20 Status: Ordered losartan 50 mg oral tablet 50 mg, 1, tablet, By Mouth, Daily, # 90 tablet, Refills 3, Tot. Refills 3, Maintenance, 01/21/20 9:57:00 EDT, Route to Pharmacy Electronically, [facility]/pharmacy #[id number], 100 mg tab on backorder, [...]
--- OUTSIDE RECORDS SUMMARY | 2024-02-27 23:31 | XMS_ITS | Continuity of Care Document ---
Author Organization [facility] Address [address] [place] [address]- Care Team Providers Care Credit Rating Inspector Name Role Phone Raphael WILDER, Ijeoma Toth Primary Care Physician [phone] [facility] Date(s): 07/26/21 - 08/25/21 [facility] [address] [place], [place] [address] Allergies, Adverse Reactions, Alerts Substance [...] 15:00:00 EDT, Inhaler, Route to Pharmacy Electronically, [id number], [facility]/pharmacy #[id number], 152.4, cm, 07/12/21 14:27:00 EDT, H... Start Date: 07/12/21 Status: Ordered Teodora 0.1 mg/24 hours twice weekly transdermal film, extended release See Instructions, 0.1 mg estradiol patch transdermal, reapply every 72 hours, # 2 patch, 0 Refills,Maintenance, 01/28/21 17:24:00 EDT, [facility]/pharmacy #[id number], Partial fill upon patient request if the prescription is for a schedule II opioid drug., 152.4,... Start Date: 01/28/21 Status: Ordered chlorthalidone 25 mg oral tablet 25 mg, 1, tablet, By Mouth, Daily, # 90 tablet, Refills 3, Tot. Refills 3, Maintenance, 07/12/21 15:00:00 EDT, Route to Pharmacy Electronically, [facility]/pharmacy #[id number], 152.4, cm, 07/12/21 14:27:00 EDT, Height, 75.9, kg, 05/12/21 16:11:00 EDT, Dry Weight Start Date: 07/12/21 Stop Date: 07/07/22 Status: Ordered levothyroxine 125 mcg (0.125 mg) oral tablet 1 tablet = 125 mcg, By Mouth, Daily, # 30 tablet, 11 Refills, Maintenance, 06/05/21 8:04:00 EDT, Tablet, [facility]/pharmacy #[id number], Partial fill upon patient request if the prescription is for a schedule IIopioid drug., 152.4, cm, 06/05/21 7:52:00 EDT, [place]... Start Date: 06/05/21 Stop Date: 05/31/22 Status: Ordered losartan 50 mg oral tablet 50 mg, 1, tablet, By Mouth, Daily, # 90 tablet, Refills 3, Tot. Refills 3, Maintenance, 07/12/21 15:00:00 EDT, Route to Pharmacy Electronically, [facility]/pharmacy #[id number], 100 mg tab on backorder, 152.4, cm, 07/12/21 14:27:00 EDT, Height, 75.9, kg, 05/12/21... Start Date: 07/12/21 Stop Date: 07/07/22 Status: Ordered omeprazole 20 mg oral enteric coated capsule 1 capsule = 20 mg, By Mouth, Daily, # 90 capsule, 3 Refills, Maintenance, 07/12/21 15:00:00 EDT, ECCapsule, [facility]/pharmacy #[id number], 152.4, cm, 07/12/21 14:27:00 EDT, Height, 75.9, kg, 05/12/21 16:11:00 EDT, Dry Weight Start Date: 07/12/21 Status: Ordered pravastatin 40 mg oral tablet 1 tablet = 40 mg, By Mouth, Daily, # 30 tablet, 5 Refills, Maintenance, 07/26/20 10:27:00 EDT, Tablet, [facility]/pharmacy #[id number], 152, cm, 07/26/20 10:00:00 EDT, Height, 67.27, kg, 01/26/19 8:44:00 EDT, DryWeight Start Date: 07/26/20 Status: Ordered simethicone 80 mg oral tablet, chewable 80 mg, Chew, 5 times a day, PRN, For Gaseous Distention/Discomfort, # 90 tablet, Refills 0, Tot. Refills 0, Maintenance, Other, 05/12/21 16:35:00 EDT, Route to Pharmacy Electronically, [facility]/pharmacy #[id number], Partial fill upon patient request if the presc... Start Date: 05/12/21 Status: Ordered Vitamin D3 1000 intl units oral capsule 1 capsule = 1,000 International_Units, By Mouth, Daily, # 90 capsule, 3 Refills, Maintenance, 07/12/21 15:00:00 EDT, Capsule, [facility]/pharmacy #[id number], 152.4, cm, 07/12/21 14:27:00 [...]
--- OUTSIDE RECORDS SUMMARY | 2024-02-27 23:31 | XMS_ITS | Continuity of Care Document ---
Author Organization [facility] Address [address] [place] [address]- Care Team Providers Care Travel Physical Therapist Name Role Phone Raphael WILDER, Ijeoma Toth Primary Care Physician [facility] Date(s): 05/09/20 - 06/08/20 [facility] [address] [place] [address]- [facility] Allergies, Adverse Reactions, Alerts Substance [...] 13:54:00 EDT, Inhaler, Route to Pharmacy Electronically, [id number], [facility]/pharmacy #[id number], 152, cm, 01/18/20 9:51:00 EDT, [...] 02/15/20 15:17:00 EDT, Route to Pharmacy Electronically, [facility]/pharmacy #[id number], 152, cm, 01/18/20 9:51:00 EDT, [...] tablet, 0 Refills, Maintenance, 05/25/20 9:12:00 EDT, [facility]/pharmacy #[id number], labs needed, 152, cm, 03/16/20 15:37:00 EDT, Height, 67.27, kg, 01/26/19 8:44:00 EDT, Dry Weight Start Date: 05/25/20 Status: Ordered losartan 50 mg oral tablet 100 mg, 2, tablet, By Mouth, Daily, # 180 tablet, Refills 3, Tot. Refills 3, Maintenance, 01/21/20 9:57:00 EDT, Route to Pharmacy Electronically, [facility]/pharmacy #[id number], 100 mg tab on backorder, 152, cm,01/18/20 9:51:00 EDT, Height, 67.27, kg, 01/26/19 8... Start Date: 01/21/20 Stop Date: 01/15/21 Status: Ordered NIFEdipine 90 mg oral tablet, extended release 90 mg, 1, tablet, By Mouth, Daily, # 30 tablet, Refills 5, Tot. Refills 5, Maintenance, 02/15/20 15:17:00 EDT, Route to Pharmacy Electronically, [facility]/pharmacy #[id number], 152, cm, 01/18/20 9:51:00 EDT, [...] 3 Refills, Maintenance, 05/25/20 10:43:00 EDT, Capsule, [facility]/pharmacy #[id number], 152, cm, 03/16/20 15:37:00 EDT, [...]
--- OUTSIDE RECORDS SUMMARY | 2024-02-27 23:31 | XMS_ITS | Continuity of Care Document ---
Author Organization [facility] Address [address] [place] [address]- Care Team Providers Care Personal Lines Appraiser Name Role Phone Ijeoma Lim MD Primary Care Physician Encounter [facility] Date(s): 08/08/23 - 09/07/23 [facility] [address] [place] [id number] Allergies, Adverse Reactions, Alerts Substance [...] acel(Tdap) 12/27/17 Given 1Result Comment: Done at [employer] 2Result Comment: Done at work Medications chlorthalidone 25 mg oral tablet 1, tablet, By Mouth, Daily, # 90 tablet, Refills 1, Maintenance, 08/20/23 0:15:00 EDT, Route to Pharmacy Electronically, [facility] STORE [id number], 152, cm, 08/01/23 10:56:00 EDT, Height, 76.8, kg, 05/16/23 10:20:00 EDT, Dry Weight Start Date: 08/20/23 Status: Ordered diclofenac sodium 75 mg oral delayed release tablet 1 tablet = 75 mg, By Mouth, 2 times a day, # 28 tablet, 0 Refills, Maintenance, 07/31/23 9:53:00 EDT, [facility]/pharmacy #[id number], Partial fill upon [...] Refills, Maintenance, 01/11/22 15:35:00 EDT, Tablet, [facility]/pharmacy #[id number], Partial fill upon patient request if the prescription is for a schedule II opioid drug., 152.4, cm, 01/11/22 15:23:00... Start Date: 01/11/22 Status: Ordered FLUoxetine 10 mg oral capsule 1, capsule, By Mouth, Daily, # 90 capsule, Refills 1, Maintenance, 08/24/23 9:01:00 EDT, Route to Pharmacy Electronically, [facility] STORE 74524, 152, cm, 08/01/23 10:56:00 EDT, Height, 76.8, kg, 05/16/23 10:20:00 EDT, Dry Weight Start Date: 08/24/23 Status: Ordered fluticasone 50 mcg/inh nasal spray 1 sprays, Nares, Both, 2 times a day, # 16 Gm, 0 Refills, Maintenance, 08/01/23 11:21:00 EDT, [place], [facility]/pharmacy #[id number], Partial fill upon [...] 10:17:00 EDT, Route to Pharmacy Electronically, [facility]/pharmacy #[id number], 100 mg tab on backorder, 152.4, cm, 05/06/23 9:42:00 EDT, Height, 75.6, kg, 05/14/22 7... Start Date: 05/06/23 Stop Date: 04/30/24 Status: Ordered montelukast 10 mg oral tablet 10 mg, 1, tablet, By Mouth, Daily, # 90 tablet, Refills 3, Tot. Refills 3, Maintenance, 05/06/23 10:17:00 EDT, Route to Pharmacy Electronically, [facility]/pharmacy #[id number], Partial fill upon patient request if the prescription is for a schedule II opioid drug... Start Date: 05/06/23 Stop Date: 04/30/24 Status: Ordered potassium chloride 20 mEq oral tablet, extended release 1 tablet = 20 mEq, By Mouth, Daily, # 30 tablet, 1 Refills, Maintenance, 05/11/23 22:39:00 EDT, ER Tablet, [facility]/pharmacy #[id number], Partial fill upon patient request if the prescription is for a schedule II opioid drug., 152.4, cm, 05/06/23 9:42:00 EDT, He... Start Date: 05/11/23 Stop Date: 07/10/23 Status: Ordered rosuvastatin 20 mg oral tablet 1 tablet, By Mouth, Daily, # 90 tablet, 3 Refills, Maintenance, 01/09/23 9:26:00 EDT, [facility]/pharmacy #[id number], 152.4, cm, 01/09/23 [...] Primary Care Member Role: PCP Address: Address: [address] [place] [address] Adult & [place] [address]- Care Team Related Persons Name: TAZ BATES Address: [address] [place] [address]
--- OUTSIDE RECORDS SUMMARY | 2024-02-27 23:32 | XMS_ITS | Continuity of Care Document ---
Author Organization [facility] Address [address] [place] [address]- Care Team Providers Care Sample Sawyer Name Role Phone Ijeoma Lim MD Primary Care Physician Encounter [facility] Date(s): 06/18/23 - 07/18/23 [facility] [address] [place] [id number] Allergies, Adverse Reactions, Alerts Substance [...] acel(Tdap) 12/27/17 Given 1Result Comment: Done at [employer] 2Result Comment: Done at work Medications chlorthalidone 25 mg oral tablet 25 mg, 1, tablet, By Mouth, Daily, # 90 tablet, Refills 3, Tot. Refills 3, Maintenance, 08/13/22 12:20:00 EDT, Route to Pharmacy Electronically, [facility]/pharmacy #[id number], 152.4, cm, 08/10/22 15:55:00 [...] 05/06/23 10:17:00 EDT, Route to Pharmacy Electronically, [facility]/pharmacy #[id number], 100 mg tab on backorder, 152.4, cm, 05/06/23 9:42:00 EDT, Height, 75.6, kg, 05/14/22 7... Start Date: 05/06/23 Stop Date: 04/30/24 Status: Ordered montelukast 10 mg oral tablet 10 mg, 1, tablet, By Mouth, Daily, # 90 tablet, Refills 3, Tot. Refills 3, Maintenance, 05/06/23 10:17:00 EDT, Route to Pharmacy Electronically, [facility]/pharmacy #[id number], Partial fill upon patient request if the prescription is for a schedule II opioid drug... Start Date: 05/06/23 Stop Date: 04/30/24 Status: Ordered potassium chloride 20 mEq oral tablet, extended release 1 tablet = 20 mEq, By Mouth, Daily, # 30 tablet, 1 Refills, Maintenance, 05/11/23 22:39:00 EDT, ER Tablet, [facility]/pharmacy #[id number], Partial fill upon patient [...] 3 Refills, Maintenance, 01/09/23 9:26:00 EDT, Capsule, [facility]/pharmacy #[id number], 152.4, cm, 01/09/23 8:53:00 [...] Personnel Name: Raphael WILDER, Ijeoma Toth Position: [facility] Physician - Primary Care Member Role: PCP Address: Address: [address] [place] [address] Adult & [place] [address]- Care Team Related Persons Name: TAZ BATES Address: [address] [place] [address]
--- OUTSIDE RECORDS SUMMARY | 2024-02-27 23:32 | XMS_ITS | Continuity of Care Document ---
Author Organization [facility] Address [address] [place] [address]- Care Team Providers Care Metallurgical Specialist Name Role Phone Ijeoma Lim MD Primary Care Physician Encounter [facility] Date(s): 01/07/24 - 02/06/24 [facility] [address] [place], [place] [address] Allergies, Adverse Reactions, Alerts Substance Reaction [...] acel(Tdap) 12/27/17 Given 1Result Comment: Done at [employer] 2Result Comment: Done at work Medications chlorthalidone 25 mg oral tablet 1, tablet, By Mouth, Daily, # 90 tablet, Refills 1, Maintenance, 08/20/23 0:15:00 EDT, Route to Pharmacy Electronically, [facility] STORE 60789, 152, cm, 08/01/23 10:56:00 EDT, Height, 76.8, kg, 05/16/23 10:20:00 EDT, Dry Weight Start Date: 08/20/23 Status: Ordered diclofenac 1% topical gel 1 application, Topically, 4 times a day, # 100 Gm, 0 Refills, Maintenance, 02/03/24 14:39:00 EDT, Gel, [facility]/pharmacy #[id number], Partial fill upon patient request if the prescription is for a schedule II opioid drug., 152, cm, 02/03/24 14:10:00 EDT, Height,... Start Date: 02/03/24 Status: Ordered docusate sodium 100 mg oral [...] 08/24/23 9:01:00 EDT, Route to Pharmacy Electronically, [facility] STORE [id number], 152, cm, 08/01/23 10:56:00 EDT, Height, 76.8, kg, 05/16/23 10:20:00 EDT, Dry Weight Start Date: 08/24/23 Status: Ordered fluticasone 50 mcg/inh nasal spray 1 sprays, Nares, Both, 2 times a day, # 16 Gm, 0 Refills, Maintenance, 08/01/23 11:21:00 EDT, [place], [facility]/pharmacy #[id number], Partial fill [...] tablet, 1 Refills, Maintenance, 01/07/24 3:02:00 EDT, [facility]/pharmacy #[id number], 152, cm, 10/09/23 15:44:00 EST, Height, [...] Primary Care Member Role: PCP Address: Address: [address] [place] [address] Adult [place] [address]- Care Team Related Persons Name: TAZ BATES Address: [address] [place] [address]
--- OUTSIDE RECORDS SUMMARY | 2024-02-27 23:32 | XMS_ITS | Continuity of Care Document ---
Author Organization [facility] Address [address] [place] [address]- Care Team Providers Care Wellness Coordinator Name Role Phone Raphael WILDER, Ijeoma Toth Primary Care Physician [phone] [facility]counter [facility] Date(s): 01/08/23 - 02/07/23 [facility] [address] [place] [id number] Allergies, Adverse [...] acel(Tdap) 12/27/17 Given 1Result Comment: Done at [employer] 2Result Comment: Done at work Medications aspirin [...] EST, [id number] Partial fill upon patient request if the prescription is for a schedule II opi... Start Date: 09/24/22 Status: Ordered chlorthalidone 25 mg oral tablet 25 mg, 1, tablet, By Mouth, Daily, # 90 tablet, Refills 3, Tot. Refills 3, Maintenance, 08/13/22 12:20:00 EDT, Route to Pharmacy Electronically, [facility]/pharmacy #[id number], 152.4, cm, 08/10/22 15:55:00 EDT, Height, 75.6, kg, 05/14/22 7:15:00 EDT, Dry Weight Start Date: 08/13/22 Stop Date: 08/08/23 Status: Ordered cyclobenzaprine 10 mg oral tablet 1, tablet, By Mouth, 3 times a day, # 10 tablet, Refills 1, Maintenance, 08/27/22 7:59:00 EST, Route to Pharmacy Electronically, [facility] STORE [id number], 152.4, cm, 08/10/22 15:55:00 EDT, Height, 75.6, [...] 01/09/23 9:29:00 EDT, Route to Pharmacy Electronically, [facility]/pharmacy #[id number], Partial fill upon patient requestif [...] 04/26/22 15:42:00 EDT, Route to Pharmacy Electronically, [facility]/pharmacy #[id number], 100 mg tab on backorder, 152.4, cm, 03/30/22 13:46:00 EDT, Height, 73.5, kg, 12/12/21... Start Date: 04/26/22 Stop Date: 04/21/23 Status: Ordered rosuvastatin 20 mg oral tablet 1 tablet, By Mouth, Daily, # 90 tablet, 3 Refills, Maintenance, 01/09/23 9:26:00 EDT, [facility]/pharmacy #[id number], 152.4, cm, 01/09/23 8:53:00 EDT, Height, 75.6, kg, 05/14/22 7:15:00 EDT, Dry Weight Start Date: 01/09/23 Status: Ordered Vitamin D3 1000 intl units oral capsule 1 capsule = 1,000 International_Units, By Mouth, Daily, # 90 capsule, 3 Refills, Maintenance, 01/09/23 9:26:00 EDT, Capsule, [facility]/pharmacy #[id number], 152.4, cm, 01/09/23 8:53:00 [...] information Care Team Personnel Name: Michelle LIN, aBilee Position: [facility] AMB Nurse Member Role: Primary Care Nurse Name: Ijeoma Lim MD Position: [facility] Primary Care Physician Member Role: PCP Address: Address: [address] [place] [address] Adult & [place] [address]- Care Team Related Persons Name: BATES TAZ Address: home [address] [place] [address]
--- OUTSIDE RECORDS SUMMARY | 2024-02-27 23:32 | XMS_ITS | Continuity of Care Document ---
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 Medications chlorthalidone 25 mg oral tablet 1, tablet, By Mouth, Daily, # 90 tablet, Refills 1, Maintenance, 08/20/23 0:15:00 EDT, Route to Pharmacy Electronically, [facility] STORE 86007, 152, cm, 08/01/23 10:56:00 EDT, Height, 76.8, kg, 05/16/23 10:20:00 EDT, Dry Weight Start Date: 08/20/23 Status: Ordered diclofenac sodium 75 mg oral delayed release tablet 1 tablet = 75 mg, By Mouth, 2 times a day, # 28 tablet, 0 Refills, Maintenance, 07/31/23 9:53:00 EDT, [facility]/pharmacy #[id number], Partial fill upon patient [...] 3 Refills, Maintenance, 01/11/22 15:35:00 EDT, Tablet, [facility]/pharmacy #[id number], Partial fill upon patient request if the prescription is for a schedule II opioid drug., 152.4, cm, 01/11/22 15:23:00... Start Date: 01/11/22 Status: Ordered FLUoxetine 10 mg oral capsule 1, capsule, By Mouth, Daily, # 90 capsule, Refills 1, Maintenance, 08/24/23 9:01:00 EDT, Route to Pharmacy Electronically, [facility] STORE [id number], 152, cm, 08/01/23 10:56:00 EDT, Height, 76.8, kg, 05/16/23 10:20:00 EDT, Dry Weight Start Date: 08/24/23 Status: Ordered fluticasone 50 mcg/inh nasal spray 1 sprays, Nares, Both, 2 times a day, # 16 Gm, 0 Refills, Maintenance, 08/01/23 11:21:00 EDT, [place], [facility]/pharmacy #[id number], Partial fill upon patient [...] 05/06/23 10:17:00 EDT, Route to Pharmacy Electronically, [facility]/pharmacy #[id number], 100 mg tab on backorder, 152.4, cm, 05/06/23 9:42:00 EDT, Height, 75.6, kg, 05/14/22 7... Start Date: 05/06/23 Stop Date: 04/30/24 Status: Ordered montelukast 10 mg oral tablet 10 mg, 1, tablet, By Mouth, Daily, # 90 tablet, Refills 3, Tot. Refills 3, Maintenance, 05/06/23 10:17:00 EDT, Route to Pharmacy Electronically, [facility]/pharmacy #[id number], Partial fill upon patient [...] Care Member Role: PCP Address: Address: [address] [place] [address] Adult [place] [address]- Care Team Related Persons Name: TAZ BATES Address: home [address] [place] [address]
--- OUTSIDE RECORDS SUMMARY | 2024-02-27 23:32 | XMS_ITS | Continuity of Care Document ---
Author Organization [facility] Address [address] [place] [address]- Care Team Providers Care Owner Operator Name Role Phone Raphael WILDER, Ijeoma Toth Primary Care Physician [facility] Date(s): 07/26/21 - 08/25/21 [facility] [address] [place], [place] [address] Allergies, Adverse Reactions, Alerts [...] 15:00:00 EDT, Inhaler, Route to Pharmacy Electronically, [id number], [facility]/pharmacy #[id number], 152.4, cm, 07/12/21 14:27:00 EDT, H... Start Date: 07/12/21 Status: Ordered Teodora 0.1 mg/24 hours twice weekly transdermal film, extended release See Instructions, 0.1 mg estradiol patch transdermal, reapply every 72 hours, # 2 patch, 0 Refills,Maintenance, 01/28/21 17:24:00 EDT, [facility]/pharmacy #[id number], Partial fill upon patient request if the prescription is for a schedule II opioid drug., 152.4,... Start Date: 01/28/21 Status: Ordered chlorthalidone 25 mg oral tablet 25 mg, 1, tablet, By Mouth, Daily, # 90 tablet, Refills 3, Tot. Refills 3, Maintenance, 07/12/21 15:00:00 EDT, Route to Pharmacy Electronically, [facility]/pharmacy #[id number], 152.4, cm, 07/12/21 14:27:00 EDT, Height, 75.9, kg, 05/12/21 16:11:00 EDT, Dry Weight Start Date: 07/12/21 Stop Date: 07/07/22 Status: Ordered levothyroxine 125 mcg (0.125 mg) oral tablet 1 tablet = 125 mcg, By Mouth, Daily, # 30 tablet, 11 Refills, Maintenance, 06/05/21 8:04:00 EDT, Tablet, [facility]/pharmacy #[id number], Partial fill upon patient request if the prescription is for a schedule IIopioid drug., 152.4, cm, 06/05/21 7:52:00 EDT, [place]... Start Date: 06/05/21 Stop Date: 05/31/22 Status: Ordered losartan 50 mg oral tablet 50 mg, 1, tablet, By Mouth, Daily, # 90 tablet, Refills 3, Tot. Refills 3, Maintenance, 07/12/21 15:00:00 EDT, Route to Pharmacy Electronically, [facility]/pharmacy #[id number], 100 mg tab on backorder, 152.4, cm, 07/12/21 14:27:00 EDT, Height, 75.9, kg, 05/12/21... Start Date: 07/12/21 Stop Date: 07/07/22 Status: Ordered omeprazole 20 mg oral enteric coated capsule 1 capsule = 20 mg, By Mouth, Daily, # 90 capsule, 3 Refills, Maintenance, 07/12/21 15:00:00 EDT, ECCapsule, [facility]/pharmacy #[id number], 152.4, cm, 07/12/21 14:27:00 EDT, Height, 75.9, kg, 05/12/21 16:11:00 EDT, Dry Weight Start Date: 07/12/21 Status: Ordered pravastatin 40 mg oral tablet 1 tablet = 40 mg, By Mouth, Daily, # 30 tablet, 5 Refills, Maintenance, 07/26/20 10:27:00 EDT, Tablet, [facility]/pharmacy #[id number], 152, cm, 07/26/20 10:00:00 EDT, Height, 67.27, kg, 01/26/19 8:44:00 EDT, DryWeight Start Date: 07/26/20 Status: Ordered simethicone 80 mg oral tablet, chewable 80 mg, Chew, 5 times a day, PRN, For Gaseous Distention/Discomfort, # 90 tablet, Refills 0, Tot. Refills 0, Maintenance, Other, 05/12/21 16:35:00 EDT, Route to Pharmacy Electronically, [facility]/pharmacy #[id number], Partial fill upon patient request if the presc... Start Date: 05/12/21 Status: Ordered Vitamin D3 1000 intl units oral capsule 1 capsule = 1,000 International_Units, By Mouth, Daily, # 90 capsule, 3 Refills, Maintenance, 07/12/21 15:00:00 EDT, Capsule, [facility]/pharmacy #[id number], 152.4, cm, 07/12/21 14:27:00 EDT, [...]
--- OUTSIDE RECORDS SUMMARY | 2024-02-27 23:32 | XMS_ITS | Continuity of Care Document ---
Author Organization [facility][1] [facility] Address [address] [place] [address]- Care Team Providers Care Molded Goods Embossing Press Operator Name Role Phone Ijeoma Lim MD Primary Care Physician [phone] Encounter [facility] Date(s): 09/13/23 - 10/13/23 [facility][1] Adult [facility] [address] [place], [place] [address] Attending Physician: Gloria Prescott Admitting Physician: AdmtrGloria [...] 0 Refills, Maintenance, 09/13/23 9:28:00 EST, [id number], Partial fill upon patient request if the prescription is for a schedule II opioid... Start Date: 09/13/23 Status: Ordered chlorthalidone 25 mg oral tablet 1, tablet, By Mouth, Daily, # 90 tablet, Refills 1, Maintenance, 08/20/23 0:15:00 EDT, Route to Pharmacy Electronically, [facility], 152, cm, 08/01/23 10:56:00 EDT, Height, 76.8, kg, 05/16/23 10:20:00 EDT, Dry Weight Start Date: 08/20/23 Status: Ordered docusate sodium 100 mg oral capsule 100 mg, 1, capsule, By Mouth, 2 times a day, # 60 capsule, Refills 1, Tot. Refills 1, Maintenance, 09/13/23 9:07:00 EST, Route to Pharmacy Electronically, [facility]/pharmacy #[id number], Partial fill upon patient [...] 08/24/23 9:01:00 EDT, Route to Pharmacy Electronically, [facility] STORE 05092, 152, cm, 08/01/23 10:56:00 EDT, Height, 76.8, kg, 05/16/23 10:20:00 EDT, Dry Weight Start Date: 08/24/23 Status: Ordered fluticasone 50 mcg/inh nasal spray 1 sprays, Nares, Both, 2 times a day, # 16 Gm, 0 Refills, Maintenance, 08/01/23 11:21:00 EDT, [place], [facility]/pharmacy #[id number], Partial fill upon patient request if the prescription is for a schedule II opioid drug., 1 sprays Nares, Both 2 times a day, 152,... Start Date: 08/01/23 Status: Ordered levothyroxine 0.137 mg oral tablet 1 tablet = 137 mcg, By Mouth, Daily, # 60 tablet, 6 Refills, Maintenance, 09/16/23 19:32:00 EST, Tablet, [facility]/pharmacy #[id number], Partial fill upon patient request if the prescription is for a schedule IIopioid drug., 152, cm, 09/13/23 8:42:00 EST, Height... Start Date: 09/16/23 Stop Date: 11/09/24 Status: Ordered losartan 50 mg oral tablet 50 mg, 1, tablet, By Mouth, Daily, # 90 tablet, Refills 3, Tot. Refills 3, Maintenance, 05/06/23 10:17:00 EDT, Route to Pharmacy Electronically, [facility]/pharmacy #[id number], 100 mg tab on backorder, 152.4, cm, 05/06/23 9:42:00 EDT, Height, 75.6, kg, 05/14/22 7... Start Date: 05/06/23 Stop Date: 04/30/24 Status: Ordered montelukast 10 mg oral tablet 10 mg, 1, tablet, By Mouth, Daily, # 90 tablet, Refills 3, Tot. Refills 3, Maintenance, 05/06/23 10:17:00 EDT, Route to Pharmacy Electronically, [facility]/pharmacy #[id number], Partial fill upon patient request if the prescription is for a schedule II opioid drug... Start Date: 05/06/23 Stop Date: 04/30/24 Status: Ordered omeprazole 40 mg oral enteric coated capsule 1 capsule = 40 mg, By Mouth, Daily, # 90 capsule, 3 Refills, Maintenance, 10/09/23 16:07:00 EST, ECCapsule, [facility]/pharmacy #[id number], Partial fill upon patient [...] 3 Refills, Maintenance, 01/09/23 9:26:00 EDT, Capsule, [facility]/pharmacy #[id number], 152.4, cm, 01/09/23 8:53:00 EDT, Height, [...] in household: No entered on: 10/01/17 Sex Laboratory * Event Display: PRINCIPAL ADMINISTRATIVE CLERK Pap Test, Non- Authored Date: Radiology * Event Display: Ultrasound Pelvis, Non- Authored Date: Patient Care team information Care Team Personnel Name: Raphael WILDER, Ijeoma Toth Position: [facility] Physician - Primary Care Member Role: PCP Address: Address: [address] [place] [address] Adult & [place] [address]- Care Team Related Persons Name: TAZ BATES Address: home [address] [place] [id number]
--- OUTSIDE RECORDS SUMMARY | 2024-02-27 23:32 | XMS_ITS | Continuity of Care Document ---
Author Organization [facility] Address [address] [place] [address]- Care Team Providers Care Family Life Counselor Name Role Phone Raphael WILDER, Ijeoma Toth Primary Care Physician [facility] Date(s): 07/20/22 - 08/19/22 [facility] [address] [place] [id number] Allergies, Adverse Reactions, Alerts Substance Reaction [...] acel(Tdap) 12/27/17 Given 1Result Comment: Done at [employer] 2Result Comment: Done at work Medications aspirin [...] 08/13/22 12:20:00 EDT, Route to Pharmacy Electronically, [facility]/pharmacy #[id number], 152.4, cm, 08/10/22 15:55:00 [...] 01/11/22 15:35:00 EDT, Tablet, [facility]/pharmacy #[id number], Partial fill upon patient request if the prescription is for a schedule II opioid drug., 152.4, cm, 01/11/22 15:23:00... Start Date: 01/11/22 Status: Ordered levothyroxine 0.137 mg oral tablet See Instructions, 1 tablet By Mouth 6 days per week and 1/2 pill on day 7, # 90 each, 3 Refills, Maintenance, 07/20/22 8:57:00 EDT, Tablet, [facility]/pharmacy #[id number], Partial [...] Name: Raphael WILDER, Ijeoma Toth Address: Address: [address] [place] [address] Adult & Pediatric [address]
--- OUTSIDE RECORDS SUMMARY | 2024-02-27 23:32 | XMS_ITS | Continuity of Care Document ---
Author Organization [facility] Address [address] [place] [address]- Care Team Providers Care Human Capital Consultant Name Role Phone Raphael WILDER, Ijeoma Toth Primary Care Physician [facility] Date[facility]s): 07/23/23 - 08/22/23 [facility] [address] [place], [place] [address] Allergies, Adverse Reactions, Alerts [...] acel(Tdap) 12/27/17 Given 1Result Comment: Done at [employer] 2Result Comment: Done at work Medications chlorthalidone 25 mg oral tablet 1, tablet, By Mouth, Daily, # 90 tablet, Refills 1, Maintenance, 08/20/23 0:15:00 EDT, Route to Pharmacy Electronically, [facility] STORE 78070, 152, cm, 08/01/23 10:56:00 EDT, Height, 76.8, kg, 05/16/23 10:20:00 EDT, Dry Weight Start Date: 08/20/23 Status: Ordered diclofenac sodium 75 mg oral delayed release tablet 1 tablet = 75 mg, By Mouth, 2 times a day, # 28 tablet, 0 Refills, Maintenance, 07/31/23 9:53:00 EDT, [facility]/pharmacy #[id number], Partial fill upon patient [...] 3 Refills, Maintenance, 01/11/22 15:35:00 EDT, Tablet, [facility]/pharmacy #[id number], Partial fill upon patient request if the prescription is for a schedule II opioid drug., 152.4, cm, 01/11/22 15:23:00... Start Date: 01/11/22 Status: Ordered FLUoxetine 10 mg oral capsule 10 mg, 1, capsule, By Mouth, Daily, # 90 capsule, Refills 1, Tot. Refills 1, Maintenance, 03/06/23 9:30:00 EDT, Route to Pharmacy Electronically, [facility]/pharmacy #[id number], Partial fill upon patient requestif the prescription is for a schedule II opioid eva... Start Date: 03/06/23 Stop Date: 09/02/23 Status: Ordered fluticasone 50 mcg/inh nasal spray 1 sprays, Nares, Both, 2 times a day, # 16 Gm, 0 Refills, Maintenance, 08/01/23 11:21:00 EDT, [place], [facility]/pharmacy #[id number], Partial fill upon patient [...] 05/06/23 10:17:00 EDT, Route to Pharmacy Electronically, [facility]/pharmacy #[id number], 100 mg tab on backorder, 152.4, cm, 05/06/23 9:42:00 EDT, Height, 75.6, kg, 05/14/22 7... Start Date: 05/06/23 Stop Date: 04/30/24 Status: Ordered montelukast 10 mg oral tablet 10 mg, 1, tablet, By Mouth, Daily, # 90 tablet, Refills 3, Tot. Refills 3, Maintenance, 05/06/23 10:17:00 EDT, Route to Pharmacy Electronically, [facility]/pharmacy #[id number], Partial fill upon patient [...] Primary Care Member Role: PCP Address: Address: [address] [place] [address] Adult & [place] [address]- Care Team Related Persons Name: TAZ BATES Address: home [address] [place] [address]
--- OUTSIDE RECORDS SUMMARY | 2024-02-27 23:32 | XMS_ITS | Continuity of Care Document ---
Author Organization [facility] Address [address] [place] [address]- Care Team Providers Care Supply Chain Procurement Manager Name Role Phone Dariana Evans MD Primary Care Physician Encounter [facility] [id number] Date(s): 10/20/19 - 10/30/[address] [address]- [facility] Attending Physician: Gloria Prescott Admitting Physician: AdmGloria fernandez Referring Physician: AdmtrGloria Allergies, Adverse Reactions, Alerts Substance Reaction Severity Status penicillin ITCHY Active Latex RASH, ÁLVAREZ AND ITCHES Activ e Immunizations Given and Recorded Vaccine Date Status Refusal Reason pneumococcal 23-valent vaccine 02/17/19 Given influenza virus vaccine, inactivated 12/27/17 Give n tetanus/diphtheria/pertussis, acel(Tdap) 12/27/17 Given Medications aspirin 81 mg oral delayed release tablet 81 mg, 1, tablet, By Mouth, Daily, # 30 tablet, Refills 11, Tot. Refills 11, Maintenance, 02/17/19 17:50:07 EDT, Route to Pharmacy Electronically, [id number], [id number] Start Date: 02/17/19 Status: Ordered chlorthalidone 25 mg oral tablet 25 mg, 1, tablet, By Mouth, Daily, # 30 tablet, Refills 11, Tot. Refills 11, Maintenance, 02/17/19 17:50:09 EDT, Route to Pharmacy Electronically, [id number], [id number] Start Date: 02/17/19 Status: Ordered Citracal Tablet 1 TAB, By Mouth, Daily, Refills 0, Maintenance, 11/05/18 8:20:12 EST Start Date: 11/05/18 Status: Ordered ferrous sulfate 325 mg oral [...] 02/17/19 17:50:07 EDT, Route to Pharmacy Electronically, [id number], [facility]/pharmacy #[id number] Start Date: 02/17/19 Stop Date: 02/12/20 Status: Ordered omeprazole 20 mg oral delayed release tablet 2 tablet = 40 mg, By Mouth, Daily, # 60 tablet, 11 Refills, Maintenance, 08/03/19 16:23:53 EDT, EC Tablet, May subsitute capsule as needed by insurance Start Date: 08/03/19 Status: Ordered pravastatin 40 mg oral tablet 1 tablet = 40 mg, By Mouth, Daily, # 30 tablet, 11 Refills, Maintenance, 02/17/19 17:50:08 EDT, Tablet Start Date: 02/17/19 Status: Ordered Thyrogen = 0.9 mg, Intramuscular, Once, application, 0 Refills, Maintenance, 01/27/19 8:45:59 EDT Start Date: 01/27/19 Status: Ordered Ventolin 90 mcg Inhaler 2, [...]
--- OUTSIDE RECORDS SUMMARY | 2024-02-27 23:32 | XMS_ITS | Continuity of Care Document ---
Author Organization [facility] Address [address] [place] [address]- Care Team Providers Care Apparel Pattern Maker Name Role Phone Ijeoma Lim MD Primary Care Physician [facility] 08/01/23 - 08/31/23 [facility] [address] [place], [place] [address] Attending Physician: AdmGloria fernandez Admitting Physician: AdmtrGloria Referring Physician: Admtr, Ar8 [...] 08/20/23 0:15:00 EDT, Route to Pharmacy Electronically, [email or web address] STORE 77059, 152, cm, 08/01/23 10:56:00 EDT, Height, 76.8, kg, 05/16/23 10:20:00 EDT, Dry Weight Start Date: 08/20/23 Status: Ordered diclofenac sodium 75 mg oral delayed release tablet 1 tablet = 75 mg, By Mouth, 2 times a day, # 28 tablet, 0 Refills, Maintenance, 07/31/23 9:53:00 EDT, [facility]/pharmacy #[id number], Partial fill upon [...] 3 Refills, Maintenance, 01/11/22 15:35:00 EDT, Tablet, [facility]/pharmacy #[id number], Partial fill upon patient request if the prescription is for a schedule II opioid drug., 152.4, cm, 01/11/22 15:23:00... Start Date: 01/11/22 Status: Ordered FLUoxetine 10 mg oral capsule 1, capsule, By Mouth, Daily, # 90 capsule, Refills 1, Maintenance, 08/24/23 9:01:00 EDT, Route to Pharmacy Electronically, [email or web address] STORE 29641, 152, cm, 08/01/23 10:56:00 EDT, Height, 76.8, kg, 05/16/23 10:20:00 EDT, Dry Weight Start Date: 08/24/23 Status: Ordered fluticasone 50 mcg/inh nasal spray 1 sprays, Nares, Both, 2 times a day, # 16 Gm, 0 Refills, Maintenance, 08/01/23 11:21:00 EDT, [place], [facility]/pharmacy #[id number], Partial fill upon [...] 05/06/23 10:17:00 EDT, Route to Pharmacy Electronically, [facility]/pharmacy #[id number], 100 mg tab on backorder, 152.4, cm, 05/06/23 9:42:00 EDT, Height, 75.6, kg, 05/14/22 7... Start Date: 05/06/23 Stop Date: 04/30/24 Status: Ordered montelukast 10 mg oral tablet 10 mg, 1, tablet, By Mouth, Daily, # 90 tablet, Refills 3, Tot. Refills 3, Maintenance, 05/06/23 10:17:00 EDT, Route to Pharmacy Electronically, [facility]/pharmacy #[id number], Partial fill upon [...] Primary Care Member Role: PCP Address: Address: [address] [place] [address] Adult & [place] [address]- Care Team Related Persons Name: JANA TAZ Address: home [address] [place] [address]
--- OUTSIDE RECORDS SUMMARY | 2024-02-27 23:32 | XMS_ITS | Continuity of Care Document ---
Author Organization [facility] Address [address] [place] [address] [address] [place] [address]- Care Team Providers Care Pharmacy Service Associate Name Role Phone Raphael WILDER, Ijeoma Toth Primary Care Physician [facility] Date[facility]s): 12/13/21 - 01/12/[address] [place] [address]- Allergies, Adverse Reactions, Alerts Substance Reaction Severity [...] Refills, Maintenance, 07/26/20 10:27:00 EDT, Tablet, [facility]/pharmacy #[id number], 152, cm, 07/26/20 10:00:00 EDT, Height, [...]
--- OUTSIDE RECORDS SUMMARY | 2024-02-27 23:32 | XMS_ITS | Continuity of Care Document ---
Author Organization [facility] Address [address] [place] [address]- Care Team Providers Care Blunger Loader Name Role Phone Raphael WILDER, Ijeoma Toth Primary Care Physician Encounter 01/21/23 - 03/14/23 [facility] [address], [address] [place] [address]- Attending Physician: Ijeoma Lim MD Admitting Physician: Ijeoma Lim MD Referring Physician: Ijeoma Lim MD Allergies, [...] 09/24/22 16:52:00 EST, Route to Pharmacy Electronically, [facility]/pharmacy #[id number], Partial fill upon patient request if the prescription is for a schedule II opi... Start Date: 09/24/22 Status: Ordered chlorthalidone 25 mg oral tablet 25 mg, 1, tablet, By Mouth, Daily, # 90 tablet, Refills 3, Tot. Refills 3, Maintenance, 08/13/22 12:20:00 EDT, Route to Pharmacy Electronically, [facility]/pharmacy #[id number], 152.4, cm, 08/10/22 15:55:00 EDT, Height, 75.6, kg, 05/14/22 7:15:00 EDT, Dry Weight Start Date: 08/13/22 Stop Date: 08/08/23 Status: Ordered cyclobenzaprine 10 mg oral tablet 1, tablet, By Mouth, 3 times a day, # 10 tablet, Refills 1, Maintenance, 08/27/22 7:59:00 EST, Route to Pharmacy Electronically, [facility] STORE 86876, 152.4, cm, 08/10/22 15:55:00 EDT, Height, 75.6, [...] 3 Refills, Maintenance, 01/11/22 15:35:00 EDT, Tablet, [facility]/pharmacy #[id number], Partial fill upon patient request if the prescription is for a schedule II opioid drug., 152.4, cm, 01/11/22 15:23:00... Start Date: 01/11/22 Status: Ordered FLUoxetine 10 mg oral capsule 10 mg, 1, capsule, By Mouth, Daily, # 90 capsule, Refills 1, Tot. Refills 1, Maintenance, 03/06/23 9:30:00 EDT, Route to Pharmacy Electronically, [facility]/pharmacy #[id number], Partial fill upon patient requestif [...] 03/06/23 9:29:00 EDT, Route to Pharmacy Electronically, [id number], [...] Name: Bailee Martinez RN Position: [facility] Nurse Member Role: Primary Care Nurse Name: Raphael WILDER, Ijeoma Toth Position: [facility] Physician - Primary Care Member Role: PCP Address: Address: [address] [place] [address] Adult & [place] [address]- Care Team Related Persons Name: TAZ BATES Address: home [address] [place] [address]
--- OUTSIDE RECORDS SUMMARY | 2024-02-27 23:32 | XMS_ITS | Continuity of Care Document ---
Author Organization [facility] Address [address] [place] [address]- Care Team Providers Care Field Naturalist Name Role Phone Raphael WILDER, Ijeoma Toth Primary Care Physician [facility]): 07/09[facility]22 - 08/08/22 [facility] [address] [place], [place] [address] Allergies, Adverse Reactions, Alerts Substance Reaction [...] acel(Tdap) 12/27/17 Given 1Result Comment: Done at [employer] 2Result Comment: Done at work Medications aspirin [...] 3 Refills, Maintenance, 01/11/22 15:35:00 EDT, Tablet, [facility]/pharmacy #[id number], Partial fill upon patient request if the prescription is for a schedule II opioid drug., 152.4, cm, 01/11/22 15:23:00... Start Date: 01/11/22 Status: Ordered levothyroxine 0.137 mg oral tablet See Instructions, 1 tablet By Mouth 6 days per week and 1/2 pill on day 7, # 90 each, 3 Refills, Maintenance, 07/20/22 8:57:00 EDT, Tablet, [facility]/pharmacy #[id number], Partial fill upon patient request if the prescription is for a schedule II opioid drug., 15... Start Date: 07/20/22 Status: Ordered losartan 50 mg oral tablet 50 mg, 1, tablet, By Mouth, Daily, # 90 tablet, Refills 3, Tot. Refills 3, Maintenance, 04/26/22 15:42:00 EDT, Route to Pharmacy Electronically, [facility]/pharmacy #[id number], 100 mg tab on backorder, [...] Name: Raphael WILDER, Ijeoma Toth Address: Address: [address] [place] [address] Adult & Pediatric [address]
--- OUTSIDE RECORDS SUMMARY | 2024-02-27 23:32 | XMS_ITS | Continuity of Care Document ---
Author Organization [facility] ter Address [address] [place] [address]- Care Team Providers Care Poly Area Supervisor Name Role Phone Ijeoma Lim MD Primary Care Physician Encounter [facility] Date(s): 06/28/23 - 08/03/[address] [address]- Attending Physician: Cait Werner NP Admitting Physician: [...] 12:20:00 EDT, Route to Pharmacy Electronically, [facility]/pharmacy #[id number], 152.4, cm, 08/10/22 15:55:00 EDT, Height, 75.6, kg, 05/14/22 7:15:00 EDT, Dry Weight Start Date: 08/13/22 Stop Date: 08/08/23 Status: Ordered diclofenac sodium 75 mg oral delayed release tablet 1 tablet = 75 mg, By Mouth, 2 times a day, # 28 tablet, 0 Refills, Maintenance, 07/31/23 9:53:00 EDT, [id number], Partial fill upon patient request [...] Refills, Maintenance, 01/11/22 15:35:00 EDT, Tablet, [facility]/pharmacy #[id number], Partial fill upon patient request if [...] Gm, 0 Refills, Maintenance, 08/01/23 11:21:00 EDT, [place], [facility]/pharmacy #[id number], Partial fill upon patient request if [...] 10:17:00 EDT, Route to Pharmacy Electronically, [facility]/pharmacy #[id number], 100 mg tab on backorder, 152.4, cm, 05/06/23 9:42:00 EDT, Height, 75.6, kg, 05/14/22 7... Start Date: 05/06/23 Stop Date: 04/30/24 Status: Ordered montelukast 10 mg oral tablet 10 mg, 1, tablet, By Mouth, Daily, # 90 tablet, Refills 3, Tot. Refills 3, Maintenance, 05/06/23 10:17:00 EDT, Route to Pharmacy Electronically, [facility]/pharmacy #[id number], Partial fill upon patient request if the prescription is for a schedule II opioid drug... Start Date: 05/06/23 Stop Date: 04/30/24 Status: Ordered potassium chloride 20 mEq oral tablet, extended release 1 tablet = 20 mEq, By Mouth, Daily, # 30 tablet, 1 Refills, Maintenance, 05/11/23 22:39:00 EDT, ER Tablet, [facility]/pharmacy #[id number], Partial fill upon patient request if [...] Primary Care Member Role: PCP Address: Address: [address] [place] [address] Adult & [place] [address]- Care Team Related Persons Name: TAZ BATES Address: home [address] [place] [address]
--- OUTSIDE RECORDS SUMMARY | 2024-02-27 23:32 | XMS_ITS | Continuity of Care Document ---
Author Organization [facility] Address [address] [place] [address]- Care Team Providers Care Dish Room Worker Name Role Phone Raphael WILDER, Ijeoma Toth Primary Care Physician [facility]counter [facility] Date(s): 07/23/21 - 08/22/21 [facility] [address] [place], [place] [address] Allergies, Adverse Reactions, Alerts Substance [...] 15:00:00 EDT, Inhaler, Route to Pharmacy Electronically, [id number], [facility]/pharmacy #[id number], 152.4, cm, 07/12/21 14:27:00 EDT, H... Start Date: 07/12/21 Status: Ordered Teodora 0.1 mg/24 hours twice weekly transdermal film, extended release See Instructions, 0.1 mg estradiol patch transdermal, reapply every 72 hours, # 2 patch, 0 Refills,Maintenance, 01/28/21 17:24:00 EDT, [facility]/pharmacy #[id number], Partial fill upon patient request if the prescription is for a schedule II opioid drug., 152.4,... Start Date: 01/28/21 Status: Ordered chlorthalidone 25 mg oral tablet 25 mg, 1, tablet, By Mouth, Daily, # 90 tablet, Refills 3, Tot. Refills 3, Maintenance, 07/12/21 15:00:00 EDT, Route to Pharmacy Electronically, [facility]/pharmacy #[id number], 152.4, cm, 07/12/21 14:27:00 EDT, Height, 75.9, kg, 05/12/21 16:11:00 EDT, Dry Weight Start Date: 07/12/21 Stop Date: 07/07/22 Status: Ordered levothyroxine 125 mcg (0.125 mg) oral tablet 1 tablet = 125 mcg, By Mouth, Daily, # 30 tablet, 11 Refills, Maintenance, 06/05/21 8:04:00 EDT, Tablet, [facility]/pharmacy #[id number], Partial fill upon patient request if the prescription is for a schedule IIopioid drug., 152.4, cm, 06/05/21 7:52:00 EDT, [place]... Start Date: 06/05/21 Stop Date: 05/31/22 Status: Ordered losartan 50 mg oral tablet 50 mg, 1, tablet, By Mouth, Daily, # 90 tablet, Refills 3, Tot. Refills 3, Maintenance, 07/12/21 15:00:00 EDT, Route to Pharmacy Electronically, [facility]/pharmacy #[id number], 100 mg tab on backorder, 152.4, cm, 07/12/21 14:27:00 EDT, Height, 75.9, kg, 05/12/21... Start Date: 07/12/21 Stop Date: 07/07/22 Status: Ordered omeprazole 20 mg oral enteric coated capsule 1 capsule = 20 mg, By Mouth, Daily, # 90 capsule, 3 Refills, Maintenance, 07/12/21 15:00:00 EDT, ECCapsule, [facility]/pharmacy #[id number], 152.4, cm, 07/12/21 14:27:00 EDT, Height, 75.9, kg, 05/12/21 16:11:00 EDT, Dry Weight Start Date: 07/12/21 Status: Ordered pravastatin 40 mg oral tablet 1 tablet = 40 mg, By Mouth, Daily, # 30 tablet, 5 Refills, Maintenance, 07/26/20 10:27:00 EDT, Tablet, [facility]/pharmacy #[id number], 152, cm, 07/26/20 10:00:00 EDT, Height, 67.27, kg, 01/26/19 8:44:00 EDT, DryWeight Start Date: 07/26/20 Status: Ordered simethicone 80 mg oral tablet, chewable 80 mg, Chew, 5 times a day, PRN, For Gaseous Distention/Discomfort, # 90 tablet, Refills 0, Tot. Refills 0, Maintenance, Other, 05/12/21 16:35:00 EDT, Route to Pharmacy Electronically, [facility]/pharmacy #[id number], Partial fill upon patient request if the presc... Start Date: 05/12/21 Status: Ordered Vitamin D3 1000 intl units oral capsule 1 capsule = 1,000 International_Units, By Mouth, Daily, # 90 capsule, 3 Refills, Maintenance, 07/12/21 15:00:00 EDT, Capsule, [facility]/pharmacy #[id number], 152.4, cm, 07/12/21 14:27:00 EDT, [...]
--- OUTSIDE RECORDS SUMMARY | 2024-02-27 23:32 | XMS_ITS | Continuity of Care Document ---
Author Organization [facility] Kira isidoro Address [address] [place] [address] [address] [place] [address]- Care Team Providers Care Conservation Assistant Name Role Phone Ijeoma Lim MD Primary Care Physician [facility]counter [facility] Date(s): 01/09/22 - 02/08/22 [facility] [address] [place], [place] [address] Allergies, Adverse Reactions, [...] 3 Refills, Maintenance, 01/11/22 15:35:00 EDT, Tablet, [facility]/pharmacy #[id number], Partial fill [...]
--- OUTSIDE RECORDS SUMMARY | 2024-02-27 23:32 | XMS_ITS | Continuity of Care Document ---
Author Organization [facility] Address [address] [place] [address]- Care Team Providers Care Foreign Banknote Teller Name Role Phone Ijeoma Lim MD Primary Care Physician Encounter [facility] Date(s): 04/16/23 - 05/16/23 [facility] [address] [place] [address] Allergies, Adverse Reactions, Alerts Substance [...] 05/08/23 16:48:00 EDT, Route to Pharmacy Electronically, [facility]/pharmacy #[id number], Partial fill upon patient request i... Start Date: 05/08/23 Stop Date: 05/25/23 Status: Ordered chlorthalidone 25 mg oral tablet 25 mg, 1, tablet, By Mouth, Daily, # 90 tablet, Refills 3, Tot. Refills 3, Maintenance, 08/13/22 12:20:00 EDT, Route to Pharmacy Electronically, [facility]/pharmacy #[id number], 152.4, cm, 08/10/22 15:55:00 EDT, Height, [...] Maintenance, 01/11/22 15:35:00 EDT, Tablet, [facility]/pharmacy #[id number], Partial fill upon patient request if the prescription is for a schedule II opioid drug., 152.4, cm, 01/11/22 15:23:00... Start Date: 01/11/22 Status: Ordered FLUoxetine 10 mg oral capsule 10 mg, 1, capsule, By Mouth, Daily, # 90 capsule, Refills 1, Tot. Refills 1, Maintenance, 03/06/23 9:30:00 EDT, Route to Pharmacy Electronically, [facility]/pharmacy #[id number], Partial fill upon patient requestif the [...] 05/08/23 16:48:00 EDT, Route to Pharmacy Electronically, [facility]/pharmacy #[id number], Partial fill... Start Date: 05/08/23 Stop [...] EDT, Route to Pharmacy Electronically, [facility]/pharmacy #[id number], 100 mg tab on backorder, 152.4, cm, 05/06/23 9:42:00 EDT, Height, 75.6, kg, 05/14/22 7... Start Date: 05/06/23 Stop Date: 04/30/24 Status: Ordered montelukast 10 mg oral tablet 10 mg, 1, tablet, By Mouth, Daily, # 90 tablet, Refills 3, Tot. Refills 3, Maintenance, 05/06/23 10:17:00 EDT, Route to Pharmacy Electronically, [facility]/pharmacy #[id number], Partial fill upon patient request if [...] Team Personnel Name: Michelle LIN, Bailee Position: [facility] AMB Nurse Member Role: Primary Care Nurse Name: Raphael WILDER, Ijeoma Toth Position: [facility] Physician - Primary Care Member Role: PCP Address: Address: [address] [place] [address] Adult & [place] [address]- Care Team Related Persons Name: TAZ BATES Address: home [address] [place] [address]
--- OUTSIDE RECORDS SUMMARY | 2024-02-27 23:32 | XMS_ITS | Continuity of Care Document ---
Author Organization [facility] Address [address] [place] [address]- Care Team Providers Care Application Project Leader Name Role Phone Ijeoma Lim MD Primary Care Physician Encounter [facility] Date(s): 06/22/22 - 07/22/22 [facility] [address] [place], [place] [address] Allergies, Adverse [...] acel(Tdap) 12/27/17 Given 1Result Comment: Done at [employer] 2Result Comment: Done at work Medications [...] 3 Refills, Maintenance, 07/20/22 8:57:00 EDT, Tablet, [facility]/pharmacy #[id number], [...] Name: Raphael WILDER, Ijeoma Toth Address: Address: [address] [place] [address] Adult & Pediatric [address]
--- OUTSIDE RECORDS SUMMARY | 2024-02-27 23:32 | XMS_ITS | Continuity of Care Document ---
Author Organization [facility] Address [address] [place] [address]- Care Team Providers Care Shop Firer/Fireman Name Role Phone Ijeoma Lim MD Primary Care Physician [facility]counter [facility] Date(s): 09/24/23 - 10/24/[address] [address] Allergies, Adverse [...] acel(Tdap) 12/27/17 Given 1Result Comment: Done at [employer] 2Result Comment: Done at work Medications barium sulfate 2% oral suspension See Instructions, dispense 2 bottles 1st bottle 6 hrs before & 2nd bottle [address], # 2each, 0 Refills, Maintenance, 09/13/23 9:28:00 EST, [facility]/pharmacy #[id number], Partial fill upon patient request if the prescription is for a schedule II opioid... Start Date: 09/13/23 Status: Ordered chlorthalidone 25 mg oral tablet 1, tablet, By Mouth, Daily, # 90 tablet, Refills 1, Maintenance, 08/20/23 0:15:00 EDT, Route to Pharmacy Electronically, [facility], 152, cm, 08/01/23 10:56:00 EDT, Height, 76.8, kg, 05/16/23 10:20:00 EDT, Dry Weight Start Date: 08/20/23 Status: Ordered docusate sodium 100 mg oral capsule 100 mg, 1, capsule, By Mouth, 2 times a day, # 60 capsule, Refills 1, Tot. Refills 1, Maintenance, 09/13/23 9:07:00 EST, Route to Pharmacy Electronically, [facility]/pharmacy #[id number], Partial fill upon patient request [...] EDT, Route to Pharmacy Electronically, [facility], 152, cm, 08/01/23 10:56:00 EDT, Height, 76.8, kg, 05/16/23 10:20:00 EDT, Dry Weight Start Date: 08/24/23 Status: Ordered fluticasone 50 mcg/inh nasal spray 1 sprays, Nares, Both, 2 times a day, # 16 Gm, 0 Refills, Maintenance, 08/01/23 11:21:00 EDT, [place], [facility]/pharmacy #[id number], Partial fill upon patient request if the prescription is for a schedule II opioid drug., 1 sprays Nares, Both 2 times a day, 152,... Start Date: 08/01/23 Status: Ordered levothyroxine 0.137 mg oral tablet 1 tablet = 137 mcg, By Mouth, Daily, # 60 tablet, 6 Refills, Maintenance, 09/16/23 19:32:00 EST, Tablet, [facility]/pharmacy #[id number], Partial fill upon patient request if the prescription is for a schedule IIopioid drug., 152, cm, 09/13/23 8:42:00 EST, Height... Start Date: 09/16/23 Stop Date: 11/09/24 Status: Ordered losartan 50 mg oral tablet 50 mg, 1, tablet, By Mouth, Daily, # 90 tablet, Refills 3, Tot. Refills 3, Maintenance, 05/06/23 10:17:00 EDT, Route to Pharmacy Electronically, [facility]/pharmacy #[id number], 100 mg tab on backorder, 152.4, cm, 05/06/23 9:42:00 EDT, Height, 75.6, kg, 05/14/22 7... Start Date: 05/06/23 Stop Date: 04/30/24 Status: Ordered montelukast 10 mg oral tablet 10 mg, 1, tablet, By Mouth, Daily, # 90 tablet, Refills 3, Tot. Refills 3, Maintenance, 05/06/23 10:17:00 EDT, Route to Pharmacy Electronically, [facility]/pharmacy #[id number], Partial fill upon patient request if the prescription is for a schedule II opioid drug... Start Date: 05/06/23 Stop Date: 04/30/24 Status: Ordered omeprazole 40 mg oral enteric coated capsule 1 capsule = 40 mg, By Mouth, Daily, # 90 capsule, 3 Refills, Maintenance, 10/09/23 16:07:00 EST, ECCapsule, [facility]/pharmacy #[id number], Partial fill upon patient request [...] Care Member Role: PCP Address: Address: [address] [place] [address] Adult & [place] [address]- Care Team Related Persons Name: TAZ BATES Address: home [address] [place] [address]
--- OUTSIDE RECORDS SUMMARY | 2024-02-27 23:32 | XMS_ITS | Continuity of Care Document ---
Author Organization [facility] Address [address] [place] [address]- Care Team Providers Care Coal Hiker Name Role Phone Raphael WILDER, Ijeoma Toth Primary Care Physician [phone] [facility] Date[facility]s): 09/13/20 - 10/13/20 [facility] [address] [place], [place] [address] Allergies, Adverse Reactions, Alerts Substance Reaction [...] 13:54:00 EDT, Inhaler, Route to Pharmacy Electronically, [id number], [facility]/pharmacy #[id number], 152, cm, 01/18/20 9:51:00 EDT, [place]... Start Date: 02/12/20 Status: Ordered Aspirin Enteric Coated 81 mg oral delayed release tablet 1 tablet, By Mouth, Daily, # 90 tablet, 3 Refills, Maintenance, 08/19/20 9:23:00 EDT, [facility], 152, cm, 07/26/20 10:00:00 EDT, Height, 67.27, kg, 01/26/19 8:44:00 EDT, Dry Weight Start Date: 08/19/20 Status: Ordered chlorthalidone 25 mg oral tablet 25 mg, 1, tablet, By Mouth, Daily, # 90 tablet, Refills 3, Tot. Refills 3, Maintenance, 07/07/20 14:00:00 EDT, Route to Pharmacy Electronically, [facility]/pharmacy #[id number], 152, cm, 03/16/20 15:37:00 EDT, [...] tablet, 0 Refills, Maintenance, 05/25/20 9:12:00 EDT, [facility]/pharmacy #[id number], labs needed, 152, cm, 03/16/20 15:37:00 EDT, Height, 67.27, kg, 01/26/19 8:44:00 EDT, Dry Weight Start Date: 05/25/20 Status: Ordered losartan 50 mg oral tablet 50 mg, 1, tablet, By Mouth, Daily, # 90 tablet, Refills 3, Tot. Refills 3, Maintenance, 01/21/20 9:57:00 EDT, Route to Pharmacy Electronically, [facility]/pharmacy #[id number], 100 mg tab on backorder, [...]
--- OUTSIDE RECORDS SUMMARY | 2024-02-27 23:32 | XMS_ITS | Continuity of Care Document ---
Author Organization [facility] Address [address] [place] [address]- Care Team Providers Care Pharmaceutical Laboratory Technician Name Role Phone Ijeoma Lim MD Primary Care Physician [phone] Encounter [facility] Date(s): 11/13/23 - 02/01/[address] [address]- Attending Physician: Not on Staff, Attending MD Referring Physician: Ijeoma Lim MD Allergies, [...] acel(Tdap) 12/27/17 Given [facility] 2[facility] Comment: Done at work Medications barium [...] EDT, Route to Pharmacy Electronically, [facility], 152, cm, 08/01/23 10:56:00 EDT, Height, 76.8, kg, 05/16/23 10:20:00 EDT, Dry Weight Start Date: 08/20/23 Status: Ordered docusate sodium 100 mg oral capsule 100 mg, 1, capsule, By Mouth, 2 times a day, # 60 capsule, Refills 1, Tot. Refills 1, Maintenance, 09/13/23 9:07:00 EST, Route to Pharmacy Electronically, [facility]/pharmacy #[id number], Partial fill upon patient request if [...] EDT, Route to Pharmacy Electronically, [facility], 152, cm, 08/01/23 10:56:00 EDT, Height, 76.8, kg, 05/16/23 10:20:00 EDT, Dry Weight Start Date: 08/24/23 Status: Ordered fluticasone 50 mcg/inh nasal spray 1 sprays, Nares, Both, 2 times a day, # 16 Gm, 0 Refills, Maintenance, 08/01/23 11:21:00 EDT, [place], [facility]/pharmacy #[id number], Partial fill upon patient request if the prescription is for a schedule II opioid drug., 1 sprays Nares, Both 2 times a day, 152,... Start Date: 08/01/23 Status: Ordered levothyroxine 0.137 mg oral tablet 1 tablet = 137 mcg, By Mouth, Daily, # 60 tablet, 6 Refills, Maintenance, 09/16/23 19:32:00 EST, Tablet, [facility]/pharmacy #[id number], Partial fill upon patient request if the prescription is for a schedule IIopioid drug., 152, cm, 09/13/23 8:42:00 EST, Height... Start Date: 09/16/23 Stop Date: 11/09/24 Status: Ordered losartan 50 mg oral tablet 50 mg, 1, tablet, By Mouth, Daily, # 90 tablet, Refills 3, Tot. Refills 3, Maintenance, 05/06/23 10:17:00 EDT, Route to Pharmacy Electronically, [facility]/pharmacy #[id number], 100 mg tab on backorder, 152.4, cm, 05/06/23 9:42:00 EDT, Height, 75.6, kg, 05/14/22 7... Start Date: 05/06/23 Stop Date: 04/30/24 Status: Ordered montelukast 10 mg oral tablet 10 mg, 1, tablet, By Mouth, Daily, # 90 tablet, Refills 3, Tot. Refills 3, Maintenance, 05/06/23 10:17:00 EDT, Route to Pharmacy Electronically, [facility]/pharmacy #[id number], Partial fill upon patient request if the prescription is for a schedule II opioid drug... Start Date: 05/06/23 Stop Date: 04/30/24 Status: Ordered omeprazole 40 mg oral enteric coated capsule 1 capsule = 40 mg, By Mouth, Daily, # 90 capsule, 3 Refills, Maintenance, 10/09/23 16:07:00 EST, ECCapsule, [facility]/pharmacy #[id number], Partial fill upon patient request if [...] Primary Care Member Role: PCP Address: Address: [address] [place] [address] Adult & [place] [address]- Care Team Related Persons Name: TAZ BATES Address: home [address] [place] [address]
--- OUTSIDE RECORDS SUMMARY | 2024-02-27 23:32 | XMS_ITS | Continuity of Care Document ---
Author Organization [facility] Address [address] [place] [address]- Care Team Providers Care Programmer Engineering And Scientific Name Role Phone Raphael WILDER, Ijeoma Toth Primary Care Physician [facility] Date(s): 04/05/21 - 05/05/21 [facility] [address] [place] [id number] Allergies, Adverse Reactions, Alerts Substance [...] 13:54:00 EDT, Inhaler, Route to Pharmacy Electronically, [id number], [id number], 152, cm, 01/18/20 9:51:00 EDT, [place]... Start Date: 02/12/20 Status: Ordered Teodora 0.1 mg/24 hours twice weekly transdermal film, extended release See Instructions, 0.1 mg estradiol patch transdermal, reapply every 72 hours, # 2 patch, 0 Refills,Maintenance, 01/28/21 17:24:00 EDT, [facility]/pharmacy #[id number], Partial fill upon patient request if the prescription is for a schedule II opioid drug., 152.4,... Start Date: 01/28/21 Status: Ordered chlorthalidone 25 mg oral tablet 25 mg, 1, tablet, By Mouth, Daily, # 90 tablet, Refills 3, Tot. Refills 3, Maintenance, 07/07/20 14:00:00 EDT, Route to Pharmacy Electronically, [facility]/pharmacy #[id number], 152, cm, 03/16/20 15:37:00 [...] tablet, 1 Refills, Maintenance, 12/20/20 13:28:00 EST, [facility]/pharmacy #[id number], labs needed, 152, cm, 09/14/20 10:51:00 EST, Height, 67.27, kg, 01/26/19 8:44:00 EDT, Dry Weight Start Date: 12/20/20 Status: Ordered losartan 50 mg oral tablet 50 mg, 1, tablet, By Mouth, Daily, # 90 tablet, Refills 1, Tot. Refills 1, Maintenance, 01/26/21 14:32:00 EDT, Route to Pharmacy Electronically, [facility]/pharmacy #[id number], 100 mg tab on [...]
--- OUTSIDE RECORDS SUMMARY | 2024-02-27 23:32 | XMS_ITS | Continuity of Care Document ---
Author Organization [facility] Address [address] [place] [address]- Care Team Providers Care Laydown Machine Operator Name Role Phone Ijeoma Lim MD Primary Care Physician Encounter [facility] Date(s): 09/05/23 - 12/08/[address] [address]- Attending Physician: Garima Zuluaga MD Admitting Physician: Garima Zuluaga MD Referring Physician: Ijeoma Lim MD Allergies, [...] EDT, Route to [facility]acy Electronically, [facility], 152, cm, 08/01/23 10:56:00 EDT, Height, 76.8, [...] EDT, Route to Pharmacy Electronically, [facility], 152, cm, 08/01/23 10:56:00 EDT, Height, 76.8, kg, 05/16/23 10:20:00 EDT, Dry Weight Start Date: 08/24/23 Status: Ordered fluticasone 50 mcg/inh nasal spray 1 sprays, Nares, Both, 2 times a day, # 16 Gm, 0 Refills, Maintenance, 08/01/23 11:21:00 EDT, [id number], Partial fill upon patient request if the prescription is for a schedule II opioid drug., 1 sprays Nares, Both 2 times a day, 152,... Start Date: 08/01/23 Status: Ordered levothyroxine 0.137 mg oral tablet 1 tablet = 137 mcg, By Mouth, Daily, # 60 tablet, 6 Refills, Maintenance, 09/16/23 19:32:00 EST, Tablet, [facility]/pharmacy #[id number], Partial fill upon [...] Refills, Maintenance, 10/09/23 16:07:00 EST, ECCapsule, [facility]/pharmacy #[id number], Partial fill upon patient [...] Personnel Name: Raphael WILDER, Ijeoma Toth Position: [facility] Physician - Primary Care Member Role: PCP Address: Address: [address] [place] [address] Adult [place] [address]- Care Team Related Persons Name: TAZ BATES Address: home [address] [place] [address]
--- OUTSIDE RECORDS SUMMARY | 2024-02-27 23:32 | XMS_ITS | Continuity of Care Document ---
Author Organization [facility] ter Address [address] [place] [address]- Care Team Providers Care Mgmt Analyst Name Role Phone Ijeoma Lim MD Primary Care Physician [phone] [facility]counter [facility] Date(s): 01/29/23 - 04/04/[address] [address] Attending Physician: Santos Zapata MD Admitting Physician: Santos Zapata MD Allergies, Adverse Reactions, [...] acel(Tdap) 12/27/17 Given 1Result Comment: Done at [employer] 2Result Comment: Done at work Medications aspirin [...] 16:52:00 EST, Route to Pharmacy Electronically, [facility]/pharmacy #[id number], Partial fill upon patient request if the prescription is for a schedule II opi... Start Date: 09/24/22 Status: Ordered chlorthalidone 25 mg oral tablet 25 mg, 1, tablet, By Mouth, Daily, # 90 tablet, Refills 3, Tot. Refills 3, Maintenance, 08/13/22 12:20:00 EDT, Route to Pharmacy Electronically, [facility]/pharmacy #[id number], 152.4, cm, 08/10/22 15:55:00 EDT, [...] Refills, Maintenance, 01/11/22 15:35:00 EDT, Tablet, [facility]/pharmacy #[id number], Partial fill upon patient request if the prescription is for a schedule II opioid drug., 152.4, cm, 01/11/22 15:23:00... Start Date: 01/11/22 Status: Ordered FLUoxetine 10 mg oral capsule 10 mg, 1, capsule, By Mouth, Daily, # 90 capsule, Refills 1, Tot. Refills 1, Maintenance, 03/06/23 9:30:00 EDT, Route to Pharmacy Electronically, [facility]/pharmacy #[id number], Partial fill upon patient requestif the prescription is for a schedule II opioid eva... Start Date: 03/06/23 Stop Date: 09/02/23 Status: Ordered levothyroxine 150 mcg (0.15 mg) oral tablet See Instructions, 1 tablet By Mouth 6 days weekly and 0.5 tabs on the 7th day., # 30 each, 11 Refills, Maintenance, 11/01/22 13:39:00 EST, [facility]/pharmacy #[id number], Partial fill upon patient request if theprescription is for a schedule II opioid drug., 152... Start Date: 11/01/22 Status: Ordered losartan 50 mg oral tablet 50 mg, 1, tablet, By Mouth, Daily, # 90 tablet, Refills 3, Tot. Refills 3, Maintenance, 04/26/22 15:42:00 EDT, Route to Pharmacy Electronically, [facility]/pharmacy #[id number], 100 mg tab on backorder, 152.4, cm, 03/30/22 13:46:00 EDT, Height, 73.5, kg, 12/12/21... Start Date: 04/26/22 Stop Date: 04/21/23 Status: Ordered montelukast 10 mg oral tablet 10 mg, 1, tablet, By Mouth, Daily, # 30 tablet, Refills 1, Tot. Refills 1, Maintenance, 03/06/23 9:29:00 EDT, Route to Pharmacy Electronically, [facility]/pharmacy #[id number], Partial fill upon patient request if the prescription is for a schedule II opioid drug.... Start Date: 03/06/23 Stop Date: 05/05/23 Status: Ordered rosuvastatin 20 mg oral tablet 1 tablet, By Mouth, Daily, # 90 tablet, 3 Refills, Maintenance, 01/09/23 9:26:00 EDT, [facility]/pharmacy #[id number], 152.4, cm, 01/09/23 8:53:00 EDT, Height, 75.6, kg, 05/14/22 7:15:00 EDT, Dry Weight Start Date: 01/09/23 Status: Ordered Vitamin D3 1000 intl units oral capsule 1 capsule = 1,000 International_Units, By Mouth, Daily, # 90 capsule, 3 Refills, Maintenance, 01/09/23 9:26:00 EDT, Capsule, [facility]/pharmacy #[id number], 152.4, cm, 01/09/23 8:53:00 EDT, [...] Team Personnel Name: Michelle LIN, Bailee Position: [facility] AMB Nurse Member Role: Primary Care Nurse Name: Raphael WILDER, Ijeoma Toth Position: [facility] Physician - Primary Care Member Role: PCP Address: Address: [address] [place] [address] Adult [place] [address]- Care Team Related Persons Name: TAZ BATES Address: home [address] [place] [id number]
--- OUTSIDE RECORDS SUMMARY | 2024-02-27 23:32 | XMS_ITS | Continuity of Care Document ---
Author Organization [facility] Address [address] [place] [address] [address] [place] [address]- Care Team Providers Care Installation Helper Name Role Phone Ijeoma Lim MD Primary Care Physician [phone] Encounter [facility] Date(s): 05/07/22 - 05/14/22 [facility] [address] [place], [place] [address] Attending Physician: Santos Zapata MD [...] acel(Tdap) 12/27/17 Given 1Result Comment: Done at [facility] 2Result Comment: Done at work Medications aspirin [...] 3 Refills, Maintenance, 01/11/22 15:35:00 EDT, Tablet, [facility]/pharmacy #[id number], [...] 04/26/22 15:42:00 EDT, [facility] 05/14/22 7:39:00 EDT, Route to Pharmacy Electronically, [facility]/pharmacy #[id number], Partial fill upon patient request, 152.4,... Start Date: 05/14/22 Stop Date: 05/19/22 Status: Ordered rosuvastatin 20 mg oral tablet 1 tablet = 20 mg, By Mouth, Daily, # 90 tablet, 0 Refills, Maintenance, 04/27/22 17:16:00 EDT, [facility]/pharmacy #[id number], familial hyperlipidemia. pravastatin not effective., 152.4, cm, 03/30/22 13:46:00 EDT, Height, 73.5, kg, 12/12/21 9:43:00 EST, Dry Weight Start Date: 04/27/22 Stop Date: 07/26/22 Status: Ordered Vitamin D3 1000 intl units oral capsule 1 capsule = 1,000 International_Units, By Mouth, Daily, # 90 capsule, 3 Refills, Maintenance, 07/12/21 15:00:00 EDT, Capsule, [facility]/pharmacy #[id number], 152.4, cm, 07/12/21 14:27:00 EDT, [...]
--- OUTSIDE RECORDS SUMMARY | 2024-02-27 23:32 | XMS_ITS | Continuity of Care Document ---
Author Organization [facility] Address [address] [place] [address]- Care Team Providers Care Cleaning Machine Operator Name Role Phone Ijeoma Lim MD Primary Care Physician [phone] Encounter [facility] Date(s): 03/03/21 - 03/10/21 [facility] [address] [place], [place] [address] Attending Physician: Ijeoma Lim MD Allergies, Adverse [...] 13:54:00 EDT, Inhaler, Route to Pharmacy Electronically, [id number], [facility]/pharmacy #[id number], 152, cm, 01/18/20 9:51:00 EDT, Heig... Start Date: 02/12/20 Status: Ordered Teodora 0.1 mg/24 hours twice weekly transdermal film, extended release See Instructions, 0.1 mg estradiol patch transdermal, reapply every 72 hours, # 2 patch, 0 Refills,Maintenance, 01/28/21 17:24:00 EDT, [facility]/pharmacy #[id number], Partial fill upon patient request if the prescription is for a schedule II opioid drug., 152.4,... Start Date: 01/28/21 Status: Ordered chlorthalidone 25 mg oral tablet 25 mg, 1, tablet, By Mouth, Daily, # 90 tablet, Refills 3, Tot. Refills 3, Maintenance, 07/07/20 14:00:00 EDT, Route to Pharmacy Electronically, [facility]/pharmacy #[id number], 152, cm, 03/16/20 15:37:00 EDT, Height, [...] tablet, 1 Refills, Maintenance, 12/20/20 13:28:00 EST, [facility]/pharmacy #[id number], labs needed, 152, cm, 09/14/20 10:51:00 EST, Height, 67.27, kg, 01/26/19 8:44:00 EDT, Dry Weight Start Date: 12/20/20 Status: Ordered losartan 50 mg oral tablet 50 mg, 1, tablet, By Mouth, Daily, # 90 tablet, Refills 1, Tot. Refills 1, Maintenance, 01/26/21 14:32:00 EDT, Route to Pharmacy Electronically, [facility]/pharmacy #[id number], 100 mg tab on backorder, 152.4, [...] oldest [Reference Range]: 1 Height 152.40 cm (03/03/21 9:01 AM) Weight 75.5 kg (03/03/21 9:01 AM) Oxygen Saturation [94-100 %] 99 % (03/03/21 9:01 AM) Pulse Rate [55-90 bpm] 77 bpm (03/03/21 9:01 AM) Body Mass Index [18.5-24.99] 32.51 *>HHI* (03/03/21 9:01 AM) Blood Pressure [90-138/55-84 mm Hg] 104/ 62mm Hg (03/03/21 9:01 AM) Temperature [96.8-100.4 DegF] 98.3 DegF (03/03/21 9:01 AM) Mode of Delivery (Oxygen) Room air (03/03/21 9:01 AM) Blood pressure sites Arm, left (03/03/21 9:01 AM) Temperature Route Temporal (03/03/21 9:01 AM) Weight Obtained Via Standing scale (03/03/21 9:01 AM) Social History Social History Type Response Smoking Status Never smoker; Tobacc o user in household: No entered on: 10/01/17 Sex
--- OUTSIDE RECORDS SUMMARY | 2024-02-27 23:32 | XMS_ITS | Continuity of Care Document ---
Author Organization [facility] Address [address] [place] [address]- Care Team Providers Care Assault Amphibious Vehicle Crewman Name Role Phone Raphael WILDER, Ijeoma Toth Primary Care Physician [phone] Encounter [facility] Date(s): 07/25/22 - 08/24/22 [facility] [address] [place] [address] Allergies, Adverse Reactions, Alerts Substance Reaction [...] acel(Tdap) 12/27/17 Given 1Result Comment: Done at [employer] 2Result Comment: Done at work Medications aspirin [...] 08/13/22 12:20:00 EDT, Route to Pharmacy Electronically, [facility]/pharmacy #[id number], 152.4, cm, 08/10/22 15:55:00 [...] 3 Refills, Maintenance, 01/11/22 15:35:00 EDT, Tablet, [facility]/pharmacy #[id number], Partial fill upon patient request if the prescription is for a schedule II opioid drug., 152.4, cm, 01/11/22 15:23:00... Start Date: 01/11/22 Status: Ordered levothyroxine 0.137 mg oral tablet See Instructions, 1 tablet By Mouth 6 days per week and 1/2 pill on day 7, # 90 each, 3 Refills, Maintenance, 07/20/22 8:57:00 EDT, Tablet, [facility]/pharmacy #[id number], Partial fill upon patient request if the prescription is for a schedule II opioid drug., 15... Start Date: 07/20/22 Status: Ordered losartan 50 mg oral tablet 50 mg, 1, tablet, By Mouth, Daily, # 90 tablet, Refills 3, Tot. Refills 3, Maintenance, 04/26/22 15:42:00 EDT, Route to Pharmacy Electronically, [facility]/pharmacy #[id number], 100 mg tab on [...] Name: Raphael WILDER, Ijeoma Toth Address: Address: [address] [place] [address] Adult & Pediatric [address]
--- OUTSIDE RECORDS SUMMARY | 2024-02-27 23:32 | XMS_ITS | Continuity of Care Document ---
Author Organization [facility] Address [address] [place] [address]- Care Team Providers Care Robot Programmer Name Role Phone Raphael WILDER, Ijeoma Toth Primary Care Physician Encounter 02/08/23 - 02/15/23 [facility] [address], [address] [place] [address]- Attending Physician: Iejoma Lim MD Admitting Physician: Ijeoma Lim MD [...] acel(Tdap) 12/27/17 Given 1Result Comment: Done at [facility] 2Result Comment: Done at work Medications aspirin [...] to Pharmacy Electronically, [id number], 152.4, cm, 08/10/22 15:55:00 EDT, Height, 75.6, [...] each, 11 Refills, Maintenance, 11/01/22 13:39:00 EST, [facility]/pharmacy #[id number], Partial fill upon [...] tablet, 3 Refills, Maintenance, 01/09/23 9:26:00 EDT, [facility]/pharmacy #[id number], 152.4, cm, 01/09/23 8:53:00 EDT, Height, 75.6, kg, 05/14/22 7:15:00 EDT, Dry Weight Start Date: 01/09/23 Status: Ordered Vitamin D3 1000 intl units oral capsule 1 capsule = 1,000 International_Units, By Mouth, Daily, # 90 capsule, 3 Refills, Maintenance, 01/09/23 9:26:00 EDT, Capsule, [facility]/pharmacy #[id number], 152.4, cm, 01/09/23 8:53:00 EDT, [...] Active PVCs (premature ventricular contractions) Confirmed Active Results Radiology Reports * Exam Date Time Procedure Performing Provider Status 02/08/23 10:02 AM MM Digital Mammo Unilat Right Leia Garcia; Auth (Verified) Notes: (MM Digital Mammo Unilat Right) Reason For Exam: clip placement RESULT: MM Digital Mammo Unilat Right PROCEDURE: MM Digital Mammo Unilat Right CLINICAL INDICATION: 52 years old Female status post ultrasound-guided RIGHT breast cyst aspiration, to confirm resolution of the lesion mammographically also. COMPARISON: Digital RIGHT mammograms 2017 through January 21, 2023. TECHNIQUE: Full field digital CC 3D tomosynthesis images of the RIGHT breast were acquired. Computer -aided detection (CAD) was utilized in the interpretation of this study. DENSITY: The breast tissue is heterogeneously dense, which may obscure masses. FINDINGS: The previously noted well-circumscribed mass centrally in the RIGHT breast has resolved. IMPRESSION: 1. Resolution of central RIGHT breast cyst confirmed mammographically. Return to screening. RECOMMENDATION: Annual mammographic screening BI-RADS 1 - Negative. Lay letter mailed to patient. WSN: [id number] Ordering Physician: Ijeoma Lim Dictated By: Roberto Gee MD Dictated Date/Time: 02/08/23 10:21 am Reviewed By: Roberto Gee MD Signed By: Roberto Gee MD Signed Date/Time: 02/08/23 10:21 am Transcribed By: PHILLIP Partition Assembly Machine Operator Date/Time: 02/08/23 10:20 am Birads: * Exam Date Time Procedure Performing Provider Status 02/08/23 9:57 AM US Punch/Aspiration Breast Cyst Right So Bose; Magaly Notes: (US Punch/Aspiration Breast Cyst Right) Reason For Exam: RT BREAST MASS X ONE AREA RESULT: US Punch/Aspiration Breast Cyst Right PROCEDURE: Ultrasound guided aspiration of RIGHT breast cyst. INDICATION: Ultrasound of the RIGHT breast performed on January 21, 2023 showed a hypoechoic area at 1o'clock 6 cm from the nipple measuring up to 0.6 cm, for which ultrasound-guided core biopsy was recommended. TECHNIQUE: The procedure was explained to the patient who signed informed consent. Ultrasound was used to localize the mass. The skin was cleansed and buffered 1% lidocaine was injected. Because of the well-circumscribed appearance and homogeneous internal echogenicity aspiration was performed before core biopsy to determine the lesion was a complicated cyst. Under ultrasound guidance, an 18-gauge spinal needle was used to enter the lesion which resolved completely. FINDINGS: Nonbloody fluid was aspirated and the lesion collapsed and disappeared by ultrasound. A RIGHT mammogram will be performed to ensure that the mammographic lesion also resolved. The patient tolerated the procedure well with no complications. IMPRESSION: 1. Ultrasound localization of a complicated cyst in the RIGHT breast 1 o'clock prior to aspiration. 2. The cystic mass was completely aspirated with ultrasound guidance. There was no evidence of residual solid lesion. 2. Subsequent RIGHT digital mammogram showed resolution of the lesion also mammographically confirming the mammographic and ultrasonographic lesions were the same. RECOMMENDATION: Annual mammographic screening WSN: [id number] Ordering Physician: Ijeoma Lim Dictated By: Roberto Gee MD Dictated Date/Time: 02/08/23 10:18 a Reviewed By: Roberto Gee MD Signed By: Roberto Gee MD Signed Date/Time: 02/08/23 10:18 am Transcribed By: PHILLIP Transcribed Date/Time: 02/08/23 10:11 am Social History Social History Type Response Smoking Status Never smoker; Tobacc o user in household: No entered on: 10/01/17 Sex US Guidance for aspiration of cyst of Breast - right * BHSPowerscribe , CIS S: TRANSCRIBE Roberto Gee MD: VERIFY Event Display: Result: Authored Date: [id number] PROCEDURE: Ultrasound guided aspiration of RIGHT breast cyst. INDICATION: Ultrasound of the RIGHT breast performed on January 21, 2023 showed a hypoechoic area at 1o'clock 6 cm from the nipple measuring up to 0.6 cm, for which ultrasound-guided core biopsy was recommended. TECHNIQUE: The procedure was explained to the patient who signed informed consent. Ultrasound was used to localize the mass. The skin was cleansed and buffered 1% lidocaine was injected. Because of the well-circumscribed appearance and homogeneous internal echogenicity aspiration was performed before core biopsy to determine the lesion was a complicated cyst. Under ultrasound guidance, an 18-gauge spinal needle was used to enter the lesion which resolved completely. FINDINGS: Nonbloody fluid was aspirated and the lesion collapsed and disappeared by ultrasound. A RIGHT mammogram will be performed to ensure that the mammographic lesion also resolved. The patient tolerated the procedure well with no complications. IMPRESSION: 1. Ultrasound localization of a complicated cyst in the RIGHT breast 1 o'clock prior to aspiration. 2. The cystic mass was completely aspirated with ultrasound guidance. There was no evidence of residual solid lesion. 2. Subsequent RIGHT digital mammogram showed resolution of the lesion also mammographically confirming the mammographic and ultrasonographic lesions were the same. RECOMMENDATION: Annual mammographic screening WSN: [id number] Ordering Physician: Ijeoma Lim Dictated By: Roberto Gee MD Dictated Date/Time: 02/08/23 10:18 a Reviewed By: Roberto Gee MD Signed By: Roberto Gee MD Signed Date/Time: 02/08/23 10:18 am Transcribed By: PHILLIP Transcribed Date/Time: 02/08/23 10:11 am MG Breast - right Views * BHSPadam , PATRICIA S: TRANSCRIBE Roberto Gee MD: VERIFY Event Display: Result: Authored Date: [id number] PROCEDURE: MM Digital Mammo Unilat Right CLINICAL INDICATION: 52 years old Female status post ultrasound-guided RIGHT breast cyst aspiration, to confirm resolution of the lesion mammographically also. COMPARISON: Digital RIGHT mammograms 2017 through January 21, 2023. TECHNIQUE: Full field digital CC 3D tomosynthesis images of the RIGHT breast were acquired. Computer -aided detection (CAD) was utilized in the interpretation of this study. DENSITY: The breast tissue is heterogeneously dense, which may obscure masses. FINDINGS: The previously noted well-circumscribed mass centrally in the RIGHT breast has resolved. IMPRESSION: 1. Resolution of central RIGHT breast cyst confirmed mammographically. Return to screening. RECOMMENDATION: Annual mammographic screening BI-RADS 1 - Negative. Lay letter mailed to patient. WSN: [id number] Ordering Physician: Ijeoma Lim Dictated By: Roberto Gee MD Dictated Date/Time: 02/08/23 10:21 am Reviewed By: Roberto Gee MD Signed By: Roberto Gee MD Signed Date/Time: 02/08/23 10:21 am Transcribed By: PHILLIP Partition Assembly Machine Operator Date/Time: 02/08/23 10:20 am Birads: Patient Care team information Care Team Personnel Name: Michelle LIN, Bailee Position: [facility] Nurse Member Role: Primary Care Nurse Name: Ijeoma Lim MD Position: [facility] Primary Care Physician Member Role: PCP Address: Address: [address] [place] [address] Adult & [place] [address]- Care Team Related Persons Name: TAZ BATES Address: home [address] [place] [address]
--- OUTSIDE RECORDS SUMMARY | 2024-02-27 23:32 | XMS_ITS | Continuity of Care Document ---
Author Organization [facility] Address [address] [place] [address]- Care Team Providers Care Senior Storage Administrator Name Role Phone Raphael WILDER, Ijeoma Toth Primary Care Physician [facility] Date[facility]s): 07/23/21 - 08/22/21 [facility] [address] [place], [place] [address] Allergies, Adverse Reactions, Alerts Substance Reaction Severity [...] 15:00:00 EDT, Inhaler, Route to Pharmacy Electronically, [id number], [facility]/pharmacy #[id number], 152.4, cm, 07/12/21 14:27:00 EDT, H... Start Date: 07/12/21 Status: Ordered Teodora 0.1 mg/24 hours twice weekly transdermal film, extended release See Instructions, 0.1 mg estradiol patch transdermal, reapply every 72 hours, # 2 patch, 0 Refills,Maintenance, 01/28/21 17:24:00 EDT, [facility]/pharmacy #[id number], Partial fill upon patient request if the prescription is for a schedule II opioid drug., 152.4,... Start Date: 01/28/21 Status: Ordered chlorthalidone 25 mg oral tablet 25 mg, 1, tablet, By Mouth, Daily, # 90 tablet, Refills 3, Tot. Refills 3, Maintenance, 07/12/21 15:00:00 EDT, Route to Pharmacy Electronically, [facility]/pharmacy #[id number], 152.4, cm, 07/12/21 14:27:00 EDT, Height, 75.9, kg, 05/12/21 16:11:00 EDT, Dry Weight Start Date: 07/12/21 Stop Date: 07/07/22 Status: Ordered levothyroxine 125 mcg (0.125 mg) oral tablet 1 tablet = 125 mcg, By Mouth, Daily, # 30 tablet, 11 Refills, Maintenance, 06/05/21 8:04:00 EDT, Tablet, [facility]/pharmacy #[id number], Partial fill upon patient request if the prescription is for a schedule IIopioid drug., 152.4, cm, 06/05/21 7:52:00 EDT, Heig... Start Date: 06/05/21 Stop Date: 05/31/22 Status: Ordered losartan 50 mg oral tablet 50 mg, 1, tablet, By Mouth, Daily, # 90 tablet, Refills 3, Tot. Refills 3, Maintenance, 07/12/21 15:00:00 EDT, Route to Pharmacy Electronically, [facility]/pharmacy #[id number], 100 mg tab on backorder, 152.4, cm, 07/12/21 14:27:00 EDT, Height, 75.9, kg, 05/12/21... Start Date: 07/12/21 Stop Date: 07/07/22 Status: Ordered omeprazole 20 mg oral enteric coated capsule 1 capsule = 20 mg, By Mouth, Daily, # 90 capsule, 3 Refills, Maintenance, 07/12/21 15:00:00 EDT, ECCapsule, [facility]/pharmacy #[id number], 152.4, cm, 07/12/21 14:27:00 EDT, Height, 75.9, kg, 05/12/21 16:11:00 EDT, Dry Weight Start Date: 07/12/21 Status: Ordered pravastatin 40 mg oral tablet 1 tablet = 40 mg, By Mouth, Daily, # 30 tablet, 5 Refills, Maintenance, 07/26/20 10:27:00 EDT, Tablet, [facility]/pharmacy #[id number], 152, cm, 07/26/20 10:00:00 EDT, Height, 67.27, kg, 01/26/19 8:44:00 EDT, DryWeight Start Date: 07/26/20 Status: Ordered simethicone 80 mg oral tablet, chewable 80 mg, Chew, 5 times a day, PRN, For Gaseous Distention/Discomfort, # 90 tablet, Refills 0, Tot. Refills 0, Maintenance, Other, 05/12/21 16:35:00 EDT, Route to Pharmacy Electronically, [facility]/pharmacy #[id number], Partial fill upon patient request if the presc... Start Date: 05/12/21 Status: Ordered Vitamin D3 1000 intl units oral capsule 1 capsule = 1,000 International_Units, By Mouth, Daily, # 90 capsule, 3 Refills, Maintenance, 07/12/21 15:00:00 EDT, Capsule, [facility]/pharmacy #[id number], 152.4, cm, 07/12/21 14:27:00 EDT, [...]
--- OUTSIDE RECORDS SUMMARY | 2024-02-27 23:32 | XMS_ITS | Continuity of Care Document ---
Author Organization [facility] Address [address] [place] [address]- Care Team Providers Care Fine Hairer Name Role Phone Ijeoma Lim MD Primary Care Physician [phone] Encounter [facility] Date(s): 09/02/23 - 10/02/23 [facility] [address] [place], [place] [address] Allergies, Adverse Reactions, Alerts Substance [...] acel(Tdap) 12/27/17 Given 1Result Comment: Done at [employer] 2Result Comment: Done at work Medications barium sulfate 2% oral suspension See Instructions, dispense 2 bottles 1st bottle 6 hrs before & 2nd bottle [address], # 2each, 0 Refills, Maintenance, 09/13/23 9:28:00 EST, [facility]/pharmacy #[id number], Partial fill upon patient request if the prescription is for a schedule II opioid... Start Date: 09/13/23 Status: Ordered chlorthalidone 25 mg oral tablet 1, tablet, By Mouth, Daily, # 90 tablet, Refills 1, Maintenance, 08/20/23 0:15:00 EDT, Route to Pharmacy Electronically, [facility] STORE [id number], 152, cm, 08/01/23 10:56:00 EDT, Height, 76.8, kg, 05/16/23 10:20:00 EDT, Dry Weight Start Date: 08/20/23 Status: Ordered docusate sodium 100 mg oral capsule 100 mg, 1, capsule, By Mouth, 2 times a day, # 60 capsule, Refills 1, Tot. Refills 1, Maintenance, 09/13/23 9:07:00 EST, Route to Pharmacy Electronically, [facility]/pharmacy #[id number], Partial fill upon patient [...] 01/11/22 15:35:00 EDT, Tablet, [facility]/pharmacy #[id number], Partial fill upon patient request if the prescription is for a schedule II opioid drug., 152.4, cm, 01/11/22 15:23:00... Start Date: 01/11/22 Status: Ordered FLUoxetine 10 mg oral capsule 1, capsule, By Mouth, Daily, # 90 capsule, Refills 1, Maintenance, 08/24/23 9:01:00 EDT, Route to Pharmacy Electronically, [id number], 152, cm, 08/01/23 10:56:00 EDT, Height, 76.8, kg, 05/16/23 10:20:00 EDT, Dry Weight Start Date: 08/24/23 Status: Ordered fluticasone 50 mcg/inh nasal spray 1 sprays, Nares, Both, 2 times a day, # 16 Gm, 0 Refills, Maintenance, 08/01/23 11:21:00 EDT, [place], [facility]/pharmacy #[id number], Partial fill upon patient request if the prescription is for a schedule II opioid drug., 1 sprays Nares, Both 2 times a day, 152,... Start Date: 08/01/23 Status: Ordered levothyroxine 0.137 mg oral tablet 1 tablet = 137 mcg, By Mouth, Daily, # 60 tablet, 6 Refills, Maintenance, 09/16/23 19:32:00 EST, Tablet, [facility]/pharmacy #[id number], Partial fill upon patient request if the prescription is for a schedule IIopioid drug., 152, cm, 09/13/23 8:42:00 EST, Height... Start Date: 09/16/23 Stop Date: 11/09/24 Status: Ordered losartan 50 mg oral tablet 50 mg, 1, tablet, By Mouth, Daily, # 90 tablet, Refills 3, Tot. Refills 3, Maintenance, 05/06/23 10:17:00 EDT, Route to Pharmacy Electronically, [facility]/pharmacy #[id number], 100 mg tab on backorder, 152.4, cm, 05/06/23 9:42:00 EDT, Height, 75.6, kg, 05/14/22 7... Start Date: 05/06/23 Stop Date: 04/30/24 Status: Ordered montelukast 10 mg oral tablet 10 mg, 1, tablet, By Mouth, Daily, # 90 tablet, Refills 3, Tot. Refills 3, Maintenance, 05/06/23 10:17:00 EDT, Route to Pharmacy Electronically, [facility]/pharmacy #[id number], Partial fill upon patient [...] Personnel Name: Raphael WILDER, Ijeoma Toth Position: [facility] Physician - Primary Care Member Role: PCP Address: Address: [address] [place] [address] Adult [place] [address]- Care Team Related Persons Name: TAZ BATES Address: [address] [place] [address]
--- OUTSIDE RECORDS SUMMARY | 2024-02-27 23:32 | XMS_ITS | Continuity of Care Document ---
Author Organization [facility] Address [address] [place] [address]- Care Team Providers Care Director Of Music Therapy Name Role Phone Ijeoma Lim MD Primary Care Physician Encounter [facility] Date(s): 11/02/22 - 11/09/22 [facility] [address] [place] [address]- Attending Physician: Ijeoma Lim MD Allergies, Adverse [...] acel(Tdap) 12/27/17 Given 1Result Comment: Done at [employer] 2Result Comment: Done at work Medications aspirin [...] 09/24/22 16:52:00 EST, Route to Pharmacy Electronically, [facility] [...] 08/27/22 7:59:00 EST, Route to Pharmacy Electronically, [facility] STORE [id number], 152.4, cm, 08/10/22 15:55:00 EDT, Height, 75.6, [...] tablet, 11 Refills, Maintenance, 11/01/22 13:39:00 EST, [facility]/pharmacy #[id number], Partial fill upon patient request if the prescription is for a schedule II opioiddrug., 152.4, cm, 08/10/22 15:55:00 EDT, Height, 75... Start Date: 11/01/22 Status: Ordered losartan 50 mg oral tablet 50 mg, 1, tablet, By Mouth, Daily, # 90 tablet, Refills 3, Tot. Refills 3, Maintenance, 04/26/22 15:42:00 EDT, [facility], [facility] 1 Refills, Maintenance, 07/17/22 19:46:00 EDT, Capsule, [facility]/pharmacy #[id number], 152.4, cm, 06/28/22 16:41:00 [...] recent to oldest [Reference Range]: 1 2 Height 152.4 cm (11/02/22 9:01 AM) 152.4 cm (11/02/22 8:57 AM) Weight 78.3 kg (11/02/22 8:57 AM) Oxygen Saturation [94-100 %] 98 % (11/02/22 8:57 AM) Pulse Rate [55-90 bpm] 73 bpm (11/02/22 8:57 AM) Body Mass Index [18.5-24.99 kg/m2] 33.71 kg/m2 *>HHI* (11/02/22 8:57 AM) Blood Pressure [90-138/55-84 mm Hg] 134/ 72mm Hg (11/02/22 9:01 AM) 150/82mm Hg *H* (11/02/22 8:57 AM) Mode of Delivery (Oxygen) Room air (11/02/22 8:57 AM) Blood pressure sites Arm, left (11/02/22 9:01 AM) Arm, left (11/02/22 8:57 AM) Weight Obtained Via Standing scale (11/02/22 8:57 AM) Social History Social History Type Response Smoking Status Never smoker; Tobacc o user in household: No entered on: 10/01/17 Sex Note * Domenica Young: PERFORM, SIGN, VERIFY Event Display: Patient Education/Instruction Authored Date: [id number] [facility] *[facility] Clinical Summary Name ANTONI DRUMMOND Age 51 Years 1970 PCP Raphael WILDER, Ijeoma Toth PCP [facility] [phone] Visit Date 11/02/2022 08:50:00 Patient Instructions do fasting blood work take medications as prescribe we will refer to sleep medicine next visit --> bring in med bottles, and we will do?? memory test dsicuss with therapist about using a medication for depression 1. BUPROPION ( wellbutrin ) for mood, energy and reducing craving 2. FLUOXETINE ( prozac). -for dperssion contact . Additional Instructions: Scheduled Appointments?? Future Appointments ?*[facility] ?[address]??[place],??[place],??[address] ?Phone:??--?Fax:??-- ?Appt. Date:??01/09/2023?8:50 AM ?Scheduled Provider:??Raphael WILDER , Ijeoma Toth Follow-Up Instructions ?? Diagnosis Other lipoprotein metabolism disorders; Hypothyroidism, unspecified; Body mass index [BMI] 30.0-30.9, adult; Unspecified mood [affective] disorder; Essential (primary) hypertension; Snoring; Other amnesia Medications: Please continue your medications until treatment is completed or stopped by your provider. Discuss any questions related to medications with your provider. Medications to Continue with No Changes These [...] for 90 Days. Refills: 1. Next Dose: Cyclobenzaprine (cyclobenzaprine 10 mg oral tablet) 1 tab(s) Oral 3 times a day. Refills: 1. Next Dose: Estradiol (Estrace 1 mg oral tablet) 1 tab(s) Oral Daily. Next Dose: Famotidine (famotidine 40 mg oral tablet) 1 tab(s) Oral Daily at Bedtime. Refills: 3. Next Dose: Levothyroxine (levothyroxine 150 mcg (0.15 mg) oral tablet) 1 tab(s) Oral Daily. Refills: 11. Next Dose: Losartan (losartan 50 mg oral tablet) 1 tab(s) Oral Daily for 90 Days. Refills: 3. Next Dose: Rosuvastatin (rosuvastatin 20 mg oral tablet) 1 tab(s) Oral Daily. Refills: 1. Next Dose: Sucralfate (Carafate 1 gm oral tablet) 1 tab(s) Oral twice a day. Refills: 0. Next Dose: Allergy Info:?? Latex; penicillin Medications Given This Visit Future Orders ?Vitamin B12 Level? Order Date:11/02/22?- Complete on or after?11/02/22 ?CBC w/ Differential? Order Date:11/02/22?- Complete on or after?11/02/22 ?Basic Metabolic Panel? Order Date:11/02/22?- Complete on or after?11/02/22 ?Hepatic Function Panel? Order Date:11/02/22?- Complete on or after?11/02/22 ?Folate Level? Order Date:11/02/22?- Complete on or after?11/02/22 ?Ferritin? Order Date:11/02/22?- Complete on or after?11/02/22 ?Hemoglobin A1C (Monitoring)? Order Date:11/02/22?- Complete on or after?11/02/22 ?Lipid Panel? Order Date:11/02/22?- Complete on or after?11/02/22 ?Iron + Iron Binding Capacity? Order Date:11/02/22?- Complete on or after?11/02/22 Vital Signs Height 152.4 cm Weight 78.3 kg BMI 33.71 kg/m2 Blood Pressure 134 mm Hg/72 mm Hg Temperature Pulse Rate 73 bpm Respiratory Rate 02 Sat Mode of Delivery 98 %/Room air You can now view a summary of your hospital visit from the comfort of your home through a free online portal called [employer]. [employer] is a website that allows you to securely view your medical information including discharge summary, medications and follow-up visits. ??You can alsosend a secure electronic message to your doctor???s office to request appointments, renew medications or just ask a question. You can enroll at [email or web address] or register during your next office visit. [...] primary care provider, you may find a [facility] provider by calling [facility] at [phone]. For information about the plan of care [...] Nurse Name: Raphael WILDER, Ijeoma Toth Position: [facility] Primary Care Physician Member Role: PCP Address: Address: [address] [place] [address] Adult & [place] [address]- Care Team Related Persons Name: TAZ BATES Address: home [address] [place] [address]
--- OUTSIDE RECORDS SUMMARY | 2024-02-27 23:32 | XMS_ITS | Continuity of Care Document ---
Author Organization [facility] Address [address] [place] [address]- Care Team Providers Care Weight And Test Bar Clerk Name Role Phone Ijeoma Lim MD Primary Care Physician [place] [facility] [place]): [place]13[place]23 [place] 09/20/23 [facility] [address] [place], [place] [address] Diagnosis LLQ pain(Discharge Diagnosis) - 09/13/23 Blood in stool(Discharge Diagnosis) - 09/13/23 Proctalgia(Discharge Diagnosis) - 09/13/23 Hypokalemia(Discharge Diagnosis) - 09/13/23 Attending Physician: Ijeoma Lim MD Allergies, Adverse [...] EDT, Route to [facility] Electronically, [id number], 152, cm, 08/01/23 10:56:00 EDT, Height, 76.8, [...] EDT, Route to [facility]acy Electronically, [id number], 152, cm, 08/01/23 10:56:00 EDT, Height, 76.8, kg, 05/16/23 10:20:00 EDT, Dry Weight Start Date: 08/24/23 Status: Ordered fluticasone 50 mcg/inh nasal spray 1 sprays, Nares, Both, 2 times a day, # 16 Gm, 0 Refills, Maintenance, 08/01/23 11:21:00 EDT, [place], [id number], Partial fill upon patient request [...] Dates Health Status Cl inical Service Informant LLQ pain Discharge Diagnosis 09/13/23 Blood in stool Discharge Diagnosis 09/13/23 Proctalgia Discharge Diagnosis 09/13/23 Hypokalemia Discharge Diagnosis 09/13/23 Vital Signs Most recent to oldest [Reference Range]: 1 Height 152 cm (09/13/23 8:42 AM) Weight 79.7 kg (09/13/23 8:42 AM) Oxygen Saturation [94-100 %] 98 % (09/13/23 8:42 AM) Pulse Rate [55-90 bpm] 71 bpm (09/13/23 8:42 AM) Body Mass Index [18.5-24.99 kg/m2] 34.5 kg/m2 *>HHI* (09/13/23 8:42 AM) Blood Pressure [90-138/55-84 mm Hg] 126/ 80mm Hg (09/13/23 8:42 AM) Mode of Delivery (Oxygen) Room air (09/13/23 8:42 AM) Blood pressure sites Arm, right (09/13/23 8:42 AM) Weight Obtained Via Standing scale (09/13/23 8:42 AM) Social History Social History Type Response Smoking Status Never smoker; Tobacc o user in household: No entered on: 10/01/17 Sex Note * Ijeoma Lim MD: PERFORM, SIGN, VERIFY Event Display: Patient Education/Instruction Authored Date: [id number] [facility] *No Edge Adult Ped Clinical Summary Name ANTONI DRUMMOND Age 52 Years 1970 PCP [id number] Visit Date 09/13/2023 08:30:00 Patient Instructions do blood work today?? we will book CT abdomen pelvis use stool softener 100 mg twice daily?? nitroglycerin ointment liquid diet, -then advance to loq??residue?? use stool softener Additional Instructions: Scheduled Appointments?? Future Appointments [address]??[place],??[place],??[address] ?Phone:??[phone]?Fax:??-- ?Appt. Date:??09/23/2023?3:00 PM ?Scheduled Provider:??[address] ?*[facility] ?Phone:??--?Fax:??-- ?Appt. Date:??10/09/2023?2:40 PM ?Scheduled Provider:??[facility] ?*[facility] ?[address]??[place],??[place],??[address] ?Phone:??--?Fax:??-- ?Appt. Date:??10/09/2023?3:45 PM ?Scheduled Provider:??José Miguel WILDER , Gerard ?*[facility] ?[address] ?[facility] ?[place],??[place],??[address] ?Phone:??--?Fax:??-- ?Appt. Date:??11/08/2023?11:00 AM ?Scheduled Provider:??Alphonso REYES, Cait Warner Follow-Up Instructions ?? Diagnosis Left lower quadrant pain; Other specified diseases of anus and rectum; Melena; Hypokalemia Medications: Please continue your medications until treatment is completed or stopped by your provider. Discuss any questions related to medications with your provider. New [facility]ations [id number], [address] [place] [id number], [phone] Barium Sulfate (barium sulfate 2% oral suspension) dispense 2 bottles 1st bottle 6 hrs before & 2nd bottle [address] Refills: 0. Next Dose: Docusate (docusate sodium 100 mg oral capsule) 1 capsule Oral twice a day for 30 Days. Refills: 1. Next Dose: Nitroglycerin (nitroglycerin 0.4% rectal ointment) 1 ce Per rectum every 12 hours for 7 Days. washhands immediately after application. Refills: 0. Next Dose: Medications to Continue with No Changes These medications were not printed or sent to your pharmacy Chlorthalidone (chlorthalidone 25 mg oral tablet) 1 tab(s) Oral Daily. Refills: 1. Next Dose: Cholecalciferol (Vitamin D3 1000 intl units oral capsule) 1 capsule Oral Daily for 90 Days. Refills: 3. Next Dose: Estradiol (Estrace 1 mg oral tablet) 1 tab(s) Oral Daily. Next Dose: Famotidine (famotidine 40 mg oral tablet) 1 tab(s) Oral Daily at Bedtime. Refills: 3. Next Dose: Fluoxetine (FLUoxetine 10 mg oral capsule) 1 capsule Oral Daily. Refills: 1. Next Dose: Fluticasone Nasal (fluticasone 50 mcg/inh nasal spray) 1 spray(s) Nares, Both twice a day. Refills:0. Next Dose: Levothyroxine (levothyroxine 150 mcg (0.15 [...] penicillin Medications Given This Visit Future Orders ?CT Abd/Pelvis W/ IV + Oral Contrast? Order Date:09/23/23?- Complete on or after?09/23/23 Vital Signs Height 152 cm Weight 79.7 kg BMI 34.5 kg/m2 Blood Pressure 126 mm Hg/80 mm Hg Temperature Pulse Rate 71 bpm Respiratory Rate 02 Sat Mode of Delivery 98 %/Room air You can now view a summary of your hospital visit from the comfort of your home through a free online portal called CareShare. CareShare is a website that allows you to securely view your medical information including discharge summary, medications and follow-up visits. ??You can alsosend a secure electronic message to your doctor???s office to request appointments, renew medications or just ask a question. You can enroll at [email or web address] or register during your next office visit. [...] primary care provider, you may find a [facility] provider by calling [facility] [employer] at [phone]. [facility], in keeping with [facility] guidance, no longer requires face masks for [...] format to support your individualized medical care. Discharge Instructions for Diverticulitis You have been diagnosed with diverticulitis. This is a condition??in which??small pouches form in your colon (large intestine) and become inflamed or infected. Follow the guidelines below for home care. As you recover ??? Eat a low-fiber diet. Your health care provider may??advise a liquid diet.??This gives your bowel a chance to rest so that it can recover. ??? Foods to include: flake cereal, mashed potatoes, pancakes, waffles, pasta, white bread, rice, applesauce, bananas, eggs, meat, fish, poultry, tofu, cooked vegetables ??? Take your medicines??as directed. Do not stop taking the medicines, even if you feel better. ??? Monitor your temperature and report any rising temperature to your health care provider. ??? Take antibiotics exactly as directed. Do not miss any. ??? Drink 6 to 8 glasses of water every day, unless directed otherwise. ??? Use a heating pad or hot water bottle to reduce abdominal cramping or pain. Preventing diverticulitis in the future ??? Eat a high-fiber diet. Fiber adds bulk to the stool so that it passes through the large intestine more easily. ??? Keep drinking 6 to 8 glasses of water every day, unless directed otherwise. ??? Begin an exercise program. Ask your health care provider how to get started. You can benefit from simple activities such as walking or gardening. ??? Treat diarrhea with a bland diet. Start with liquids only,??then slowly add fiber over time. ??? Watch for changes in your bowel movements (constipation to diarrhea). ??? Get plenty of rest and sleep. Follow-up care Make a follow-up appointment as directed by our staff. When to call your health care provider Call your health care provider immediately if you have any of the following: ??? Fever??above 100??F (37.7??C) ??? Chills ??? Severe cramps in??the abdomen, most commonly the lower left side ??? Tenderness in??the abdomen, most commonly the lower left side ??? Nausea and vomiting ??? Bleeding from your rectum ?? [id number] [employer]. [address] [place] [address]. All rights reserved. This information is not intended as a substitute for professional medical care. Always follow your healthcare professional's instructions. Diverticulosis Diverticulosis??means that small pouches have formed in the wall of??your??large intestine (colon).Most often, this problem causes no symptoms and is common as people age. But the pouches in the colon are at risk of becoming infected. When this happens, the condition is called diverticulitis. Although most people with diverticulosis never develop diverticulitis, it is still not uncommon. Rectal b leeding can also occur and in less common situations, a type of colon inflammation called colitis. While most people do not??have symptoms, some people with diverticulosis may??have: ??? Abdominal cramps and pain ??? Bloating ??? Constipation ??? Change in bowel habits Causes The exact cause of diverticulosis (and diverticulitis) has not been proved, but??a few things are associated with the condition: ??? Low-fiber diet ??? Constipation ??? Lack of exercise Your healthcare provider will talk with you about how to manage your condition. Diet changes may chay that are needed to help control diverticulosis and prevent progression to diverticulitis. If you develop diverticulitis, you will likely need??other treatments. Home care You may be told to take fiber supplements daily. Fiber adds bulk to the stool so that it passes through the colon more easily. Stool softeners may be recommended. You may also be given medications for pain relief. Be sure to take all medications as directed. In the past, people were told to avoid corn, nuts, and seeds. This is no longer necessary. Follow these guidelines when caring for yourself at home: ??? Eat unprocessed foods that are high in fiber. Whole grains, fruits, and vegetables are good choices. ??? Drink 6 to 8 glasses of water every day unless your healthcare provider has you limit how much??fluid you should have. ??? Watch for changes in your bowel movements. Tell your provider if you notice any changes. ??? Begin an exercise program. Ask your provider how to get started. Generally, walking is the best. ??? Get plenty of rest and sleep. Follow-up care Follow up with your healthcare provider, or??as advised. Regular visits may be needed to check on your health. Sometimes special procedures such as colonoscopy, are needed after an episode of diverticulitis or blooding. Be sure to keep all your appointments. If a stool sample was taken, or cultures were done, you should be told if they are positive, or if your treatment needs to be changed. You can call as directed for the results. If X-rays were done,??a radiologist will look at them. You will be told if there is a change in your treatment. If antibiotics were prescribed, be sure to finish them all. When to seek medical advice Call your healthcare provider right away??if any of these occur: ??? Fever of 100.4??F (38??C) or higher, or as directed by your healthcare provider ??? Severe cramps in the lower left side of the abdomen or pain that is getting??worse ??? Tenderness in the lower left side of the abdomen or worsening pain throughout the abdomen ??? Diarrhea or constipation that doesn't get better within 24 hours ??? Nausea and vomiting ??? Bleeding from the rectum Call 911 Call emergency services if any of the following occur: ??? Trouble breathing ??? Confusion ??? Very drowsy or trouble awakening ??? Fainting or loss of consciousness ??? Rapid heart rate ??? Chest pain ?? [phone] [employer]. [address] [place] [address], [place] [address]. All rights reserved. This information is not intended as a substitute for professional medical care. Always follow your healthcare professional's instructions. * Gwen Carpenter: PERFORM, SIGN, VERIFY Event Display: Patient Education/Instruction Authored Date: [id number] [facility] Adult Ped Clinical Summary Name ANTONI DRUMMOND Age 52 Years 1970 PCP Raphael WILDER, Ijeoma Toth PCP Visit Date 09/13/2023 08:30:00 Patient Instructions do blood work today?? we will book CT abdomen pelvis use stool softener 100 mg twice daily?? nitroglycerin ointment Additional Instructions: Scheduled Appointments?? Future Appointments ?[address],??[place],??[address] ?Phone:??[phone]?Fax:??-- ?Appt. Date:??09/23/2023?3:00 PM ?Scheduled Provider:??[address] ?*[facility] ?Phone:??--?Fax:??-- ?Appt. Date:??10/09/2023?2:40 PM ?Scheduled Provider:??[facility] ?*[facility] ?[address],??[place],??[address] ?Phone:??--?Fax:??-- ?Appt. Date:??10/09/2023?3:45 PM ?Scheduled Provider:??José Miguel WILDER , Gerard ?*[facility] ?[address] [facility] ?[place],??[place],??[address] ?Phone:??--?Fax:??-- ?Appt. Date:??11/08/2023?11:00 AM ?Scheduled Provider:??Cait Werner NP Follow-Up Instructions ?? Diagnosis Left lower quadrant pain; Other specified diseases of anus and rectum; Melena; Hypokalemia Medications: Please continue your medications until treatment is completed or stopped by your provider. Discuss any questions related to medications with your provider. New Medications [id number], [address] [place] [id number], [phone] Docusate (docusate sodium 100 mg oral capsule) 1 capsule Oral twice a day for 30 Days. Refills: 1. Next Dose: Nitroglycerin (nitroglycerin 0.4% rectal ointment) 1 ce Per rectum every 12 hours for 7 Days. washhands immediately after application. Refills: 0. Next Dose: Medications to Continue with No Changes These medications were not printed or sent to your pharmacy Chlorthalidone (chlorthalidone 25 mg oral tablet) 1 tab(s) Oral Daily. Refills: 1. Next Dose: Cholecalciferol (Vitamin D3 1000 intl units oral capsule) 1 capsule Oral Daily for 90 Days. Refills: 3. Next Dose: Estradiol (Estrace 1 mg oral tablet) 1 tab(s) Oral Daily. Next Dose: Famotidine (famotidine 40 mg oral tablet) 1 tab(s) Oral Daily at Bedtime. Refills: 3. Next Dose: Fluoxetine (FLUoxetine 10 mg oral capsule) 1 capsule Oral Daily. Refills: 1. Next Dose: Fluticasone Nasal (fluticasone 50 mcg/inh nasal spray) 1 spray(s) Nares, Both twice a day. Refills:0. Next Dose: Levothyroxine (levothyroxine 150 mcg (0.15 [...] penicillin Medications Given This Visit Future Orders ?CT Abd/Pelvis W/ IV + Oral Contrast? Order Date:09/23/23?- Complete on or after?09/23/23 Vital Signs Height 152 cm Weight 79.7 kg BMI 34.5 kg/m2 Blood Pressure 126 mm Hg/80 mm Hg Temperature Pulse Rate 71 bpm Respiratory Rate 02 Sat Mode of Delivery 98 %/Room air You can now view a summary of your hospital visit from the comfort of your home through a free online portal called CareShare. CareShare is a website that allows you to securely view your medical information including discharge summary, medications and follow-up visits. ??You can alsosend a secure electronic message to your doctor???s office to request appointments, renew medications or just ask a question. You can enroll at [email or web address] or register during your next office visit. [...] primary care provider, you may find a [facility] provider by calling [facility] [employer] at [phone]. [facility], in keeping with [facility] guidance, no longer requires face masks for [...] format to support your individualized medical care. Discharge Instructions for Diverticulitis You have been diagnosed with diverticulitis. This is a condition??in which??small pouches form in your colon (large intestine) and become inflamed or infected. Follow the guidelines below for home care. As you recover ??? Eat a low-fiber diet. Your health care provider may??advise a liquid diet.??This gives your bowel a chance to rest so that it can recover. ??? Foods to include: flake cereal, mashed potatoes, pancakes, waffles, pasta, white bread, rice, applesauce, bananas, eggs, meat, fish, poultry, tofu, cooked vegetables ??? Take your medicines??as directed. Do not stop taking the medicines, even if you feel better. ??? Monitor your temperature and report any rising temperature to your health care provider. ??? Take antibiotics exactly as directed. Do not miss any. ??? Drink 6 to 8 glasses of water every day, unless directed otherwise. ??? Use a heating pad or hot water bottle to reduce abdominal cramping or pain. Preventing diverticulitis in the future ??? Eat a high-fiber diet. Fiber adds bulk to the stool so that it passes through the large intestine more easily. ??? Keep drinking 6 to 8 glasses of water every day, unless directed otherwise. ??? Begin an exercise program. Ask your health care provider how to get started. You can benefit from simple activities such as walking or gardening. ??? Treat diarrhea with a bland diet. Start with liquids only,??then slowly add fiber over time. ??? Watch for changes in your bowel movements (constipation to diarrhea). ??? Get plenty of rest and sleep. Follow-up care Make a follow-up appointment as directed by our staff. When to call your health care provider Call your health care provider immediately if you have any of the following: ??? Fever??above 100??F (37.7??C) ??? Chills ??? Severe cramps in??the abdomen, most commonly the lower left side ??? Tenderness in??the abdomen, most commonly the lower left side ??? Nausea and vomiting ??? Bleeding from your rectum ?? [id number] [employer]. [address] [place] [address]. All rights reserved. This information is not intended as a substitute for professional medical care. Always follow your healthcare professional's instructions. Diverticulosis Diverticulosis??means that small pouches have formed in the wall of??your??large intestine (colon).Most often, this problem causes no symptoms and is common as people age. But the pouches in the colon are at risk of becoming infected. When this happens, the condition is called diverticulitis. Although most people with diverticulosis never develop diverticulitis, it is still not uncommon. Rectal b leeding can also occur and in less common situations, a type of colon inflammation called colitis. While most people do not??have symptoms, some people with diverticulosis may??have: ??? Abdominal cramps and pain ??? Bloating ??? Constipation ??? Change in bowel habits Causes The exact cause of diverticulosis (and diverticulitis) has not been proved, but??a few things are associated with the condition: ??? Low-fiber diet ??? Constipation ??? Lack of exercise Your healthcare provider will talk with you about how to manage your condition. Diet changes may chay that are needed to help control diverticulosis and prevent progression to diverticulitis. If you develop diverticulitis, you will likely need??other treatments. Home care You may be told to take fiber supplements daily. Fiber adds bulk to the stool so that it passes through the colon more easily. Stool softeners may be recommended. You may also be given medications for pain relief. Be sure to take all medications as directed. In the past, people were told to avoid corn, nuts, and seeds. This is no longer necessary. Follow these guidelines when caring for yourself at home: ??? Eat unprocessed foods that are high in fiber. Whole grains, fruits, and vegetables are good choices. ??? Drink 6 to 8 glasses of water every day unless your healthcare provider has you limit how much??fluid you should have. ??? Watch for changes in your bowel movements. Tell your provider if you notice any changes. ??? Begin an exercise program. Ask your provider how to get started. Generally, walking is the best. ??? Get plenty of rest and sleep. Follow-up care Follow up with your healthcare provider, or??as advised. Regular visits may be needed to check on your health. Sometimes special procedures such as colonoscopy, are needed after an episode of diverticulitis or blooding. Be sure to keep all your appointments. If a stool sample was taken, or cultures were done, you should be told if they are positive, or if your treatment needs to be changed. You can call as directed for the results. If X-rays were done,??a radiologist will look at them. You will be told if there is a change in your treatment. If antibiotics were prescribed, be sure to finish them all. When to seek medical advice Call your healthcare provider right away??if any of these occur: ??? Fever of 100.4??F (38??C) or higher, or as directed by your healthcare provider ??? Severe cramps in the lower left side of the abdomen or pain that is getting??worse ??? Tenderness in the lower left side of the abdomen or worsening pain throughout the abdomen ??? Diarrhea or constipation that doesn't get better within 24 hours ??? Nausea and vomiting ??? Bleeding from the rectum Call 911 Call emergency services if any of the following occur: ??? Trouble breathing ??? Confusion ??? Very drowsy or trouble awakening ??? Fainting or loss of consciousness ??? Rapid heart rate ??? Chest pain ?? [phone] [employer]. [address] [place] [address], [place] [address]. All rights reserved. This information is not intended as a substitute for professional medical care. Always follow your healthcare professional's instructions. Patient Care team information Care Team Personnel Name: Raphael WILDER, Ijeoma Toth Position: [facility] Physician - Primary Care Member Role: PCP Address: Address: [address] [place] [address] Adult & [place] [address]- Care Team Related Persons Name: TAZ BATES Address: [address] [address]
--- OUTSIDE RECORDS SUMMARY | 2024-02-27 23:32 | XMS_ITS | Continuity of Care Document ---
Author Organization [facility] Address [address] [place] [address]- Care Team Providers Care Digital Analyst Name Role Phone Ijeoma Lim MD Primary Care Physician Encounter [facility] [place] Date(s): 04/18/22 - 05/18/22 [facility] [address] [place], [place] [address] Allergies, Adverse Reactions, Alerts Substance [...] acel(Tdap) 12/27/17 Given 1Result Comment: Done at [employer] 2Result Comment: Done at work Medications aspirin [...] 3 Refills, Maintenance, 01/11/22 15:35:00 EDT, Tablet, [facility]/pharmacy #[id number], Partial fill upon patient request [...] 04/26/22 15:42:00 EDT, Route to Pharmacy Electronically, [facility]/pharmacy #[id number], 100 mg tab on backorder, 152.4, cm, 03/30/22 13:46:00 EDT, Height, 73.5, kg, 12/12/21... Start Date: 04/26/22 Stop Date: 04/21/23 Status: Ordered oxyCODONE 5 mg oral tablet 5 mg, 1, tablet, By Mouth, Every 6 hours, PRN, # 5 tablet, Refills 0, Tot. Refills 0, Acute 05/19/22 7:40:00 EDT, as needed for pain, 05/14/22 7:39:00 EDT, Route to Pharmacy Electronically, [facility]/pharmacy #[id number], Partial fill upon patient request, 152.4,... Start Date: 05/14/22 Stop Date: 05/19/22 Status: Ordered rosuvastatin 20 mg oral tablet 1 tablet = 20 mg, By Mouth, Daily, # 90 tablet, 0 Refills, Maintenance, 04/27/22 17:16:00 EDT, [facility]/pharmacy #[id number], familial hyperlipidemia. pravastatin not effective., 152.4, cm, 03/30/22 13:46:00 EDT, Height, 73.5, kg, 12/12/21 9:43:00 EST, Dry Weight Start Date: 04/27/22 Stop Date: 07/26/22 Status: Ordered Vitamin D3 1000 intl units oral capsule 1 capsule = 1,000 International_Units, By Mouth, Daily, # 90 capsule, 3 Refills, Maintenance, 07/12/21 15:00:00 EDT, Capsule, [facility]/pharmacy #[id number], 152.4, cm, 07/12/21 14:27:00 EDT, [...]
--- OUTSIDE RECORDS SUMMARY | 2024-02-27 23:32 | XMS_ITS | Continuity of Care Document ---
Author Organization [facility] Address [address] [place] [address]- Care Team Providers Care Legal Director Name Role Phone Ijeoma Lim MD Primary Care Physician [phone] Encounter [facility] Date(s): 06/13/23 - 07/13/23 [facility] [address] [place] [address] Allergies, Adverse Reactions, Alerts Substance Reaction [...] acel(Tdap) 12/27/17 Given 1Result Comment: Done at [employer] 2Result Comment: Done at work Medications chlorthalidone [...] 05/06/23 10:17:00 EDT, Route to Pharmacy Electronically, [facility]/pharmacy #[id number], 100 mg tab on backorder, 152.4, cm, 05/06/23 9:42:00 EDT, Height, 75.6, kg, 05/14/22 7... Start Date: 05/06/23 Stop Date: 04/30/24 Status: Ordered montelukast 10 mg oral tablet 10 mg, 1, tablet, By Mouth, Daily, # 90 tablet, Refills 3, Tot. Refills 3, Maintenance, 05/06/23 10:17:00 EDT, Route to Pharmacy Electronically, [facility]/pharmacy #[id number], Partial fill upon patient request if the prescription is for a schedule II opioid drug... Start Date: 05/06/23 Stop Date: 04/30/24 Status: Ordered potassium chloride 20 mEq oral tablet, extended release 1 tablet = 20 mEq, By Mouth, Daily, # 30 tablet, 1 Refills, Maintenance, 05/11/23 22:39:00 EDT, ER Tablet, [facility]/pharmacy #[id number], Partial [...] Personnel Name: Raphael WILDER, Ijeoma Toth Position: [facility] Physician - Primary Care Member Role: PCP Address: Address: [address] [place] [address] Adult [place] [address]- Care Team Related Persons Name: TAZ BATES Address: home [address] [place] [address]
[2024-02-27 23:33] VITALS: BP 176/82; PULSE 69; RESP 18; TEMP 37.1; O2SAT 99
--- OUTSIDE RECORDS SUMMARY | 2024-02-27 23:33 | XMS_ITS | Continuity of Care Document ---
Author Organization [facility] Address [address] [place] [address]- Care Team Providers Care [place]ing Supervisor Name Role Phone Raphael WILDER, Ijeoma Toth Primary Care Physician Encounter [facility] Date(s): 01/08/23 - 02/07/23 [facility] [address] [place] [id number] Allergies, Adverse Reactions, Alerts [...] acel(Tdap) 12/27/17 Given 1Result Comment: Done at [employer] 2Result Comment: Done at work Medications aspirin [...] 09/24/22 16:52:00 EST, [id number] Partial fill upon patient request [...] 08/27/22 7:59:00 EST, Route to Pharmacy Electronically, [facility] STORE [id number], 152.4, cm, 08/10/22 15:55:00 EDT, Height, 75.6, [...] 01/09/23 9:29:00 EDT, [facility], [facility] [...] 3 Refills, Maintenance, 01/09/23 9:26:00 EDT, [facility]/pharmacy #[id number], 152.4, cm, [...] Team Personnel Name: Michelle LIN, Bailee Position: [facility] AM[facility] Nurse Member Role: Primary Care Nurse Name: Ijeoma Lim MD Position: [facility] Primary Care Physician Member Role: PCP Address: Address: [address] [place] [address] Adult & [place] [address]- Care Team Related Persons Name: BATES TAZ Address: home [address] [place] [address]
--- OUTSIDE RECORDS SUMMARY | 2024-02-27 23:33 | XMS_ITS | Continuity of Care Document ---
Author Organization [facility] ter Address [address] [place] [address]- Care Team Providers Care Textile Machinery Sales Representative Name Role Phone Ijeoma Lim MD Primary Care Physician Encounter [facility] Date(s): 07/13/21 - 10/29/[address] [address] Attending Physician: Ijeoma Lim MD Admitting Physician: [...] 2 patch, 0 Refills,Maintenance, 01/28/21 17:24:00 EDT, [facility]/pharmacy #[id number], Partial fill upon patient [...] 11 Refills, Maintenance, 06/05/21 8:04:00 EDT, Tablet, [facility]/pharmacy #[id number], Partial fill upon patient [...]
--- OUTSIDE RECORDS SUMMARY | 2024-02-27 23:33 | XMS_ITS | Continuity of Care Document ---
Author Organization [facility] Address [address] [place] [address]- Care Team Providers Care Wood And Hardware Outfitter Name Role Phone Ijeoma Lim MD Primary Care Physician [phone] Encounter [facility] Date(s): 01/02/24 - 02/01/24 [facility] [address] [place], [place] [address] Allergies, Adverse [...] acel(Tdap) 12/27/17 Given 1Result Comment: Done at [employer] 2Result Comment: Done at work Medications barium sulfate 2% oral suspension See Instructions, dispense 2 bottles 1st bottle 6 hrs before & 2nd bottle [address], # 2each, 0 Refills, Maintenance, 09/13/23 9:28:00 EST, [facility]/pharmacy #[id number], Partial fill upon patient request if the prescription is for a schedule II opioid... Start Date: 09/13/23 Status: Ordered chlorthalidone 25 mg oral tablet 1, tablet, By Mouth, Daily, # 90 tablet, Refills 1, Maintenance, 08/20/23 0:15:00 EDT, Route to Pharmacy Electronically, [facility], 152, cm, 08/01/23 10:56:00 EDT, Height, 76.8, kg, 05/16/23 10:20:00 EDT, Dry Weight Start Date: 08/20/23 Status: Ordered docusate sodium 100 mg oral capsule 100 mg, 1, capsule, By Mouth, 2 times a day, # 60 capsule, Refills 1, Tot. Refills 1, Maintenance, 09/13/23 9:07:00 EST, Route to Pharmacy Electronically, [facility]/pharmacy #[id number], Partial fill [...] EDT, Route to Pharmacy Electronically, [facility], 152, cm, 08/01/23 10:56:00 EDT, Height, 76.8, kg, 05/16/23 10:20:00 EDT, Dry Weight Start Date: 08/24/23 Status: Ordered fluticasone 50 mcg/inh nasal spray 1 sprays, Nares, Both, 2 times a day, # 16 Gm, 0 Refills, Maintenance, 08/01/23 11:21:00 EDT, [place], [facility]/pharmacy #[id number], Partial fill upon patient request if the prescription is for a schedule II opioid drug., 1 sprays Nares, Both 2 times a day, 152,... Start Date: 08/01/23 Status: Ordered levothyroxine 0.137 mg oral tablet 1 tablet = 137 mcg, By Mouth, Daily, # 60 tablet, 6 Refills, Maintenance, 09/16/23 19:32:00 EST, Tablet, [facility]/pharmacy #[id number], Partial fill upon patient request if the prescription is for a schedule IIopioid drug., 152, cm, 09/13/23 8:42:00 EST, Height... Start Date: 09/16/23 Stop Date: 11/09/24 Status: Ordered losartan 50 mg oral tablet 50 mg, 1, tablet, By Mouth, Daily, # 90 tablet, Refills 3, Tot. Refills 3, Maintenance, 05/06/23 10:17:00 EDT, Route to Pharmacy Electronically, [facility]/pharmacy #[id number], 100 mg tab on backorder, 152.4, cm, 05/06/23 9:42:00 EDT, Height, 75.6, kg, 05/14/22 7... Start Date: 05/06/23 Stop Date: 04/30/24 Status: Ordered montelukast 10 mg oral tablet 10 mg, 1, tablet, By Mouth, Daily, # 90 tablet, Refills 3, Tot. Refills 3, Maintenance, 05/06/23 10:17:00 EDT, Route to Pharmacy Electronically, [facility]/pharmacy #[id number], Partial fill upon patient request if the prescription is for a schedule II opioid drug... Start Date: 05/06/23 Stop Date: 04/30/24 Status: Ordered omeprazole 40 mg oral enteric coated capsule 1 capsule = 40 mg, By Mouth, Daily, # 90 capsule, 3 Refills, Maintenance, 10/09/23 16:07:00 EST, ECCapsule, [facility]/pharmacy #[id number], Partial fill upon patient request if the prescription is for a schedule II opioid drug., 152, cm, 10/09/23 15:44:00 EST, H... Start Date: 10/09/23 Stop Date: 10/03/24 Status: Ordered rosuvastatin 20 mg oral tablet 1 tablet, By Mouth, Daily, # 90 tablet, 1 Refills, Maintenance, 01/07/24 3:02:00 EDT, [facility]/pharmacy #[id number], 152, cm, 10/09/23 15:44:00 [...] Primary Care Member Role: PCP Address: Address: [address] [place] [address] Adult & [place] [address]- Care Team Related Persons Name: TAZ BATES Address: home [address] [place] [address]
--- OUTSIDE RECORDS SUMMARY | 2024-02-27 23:33 | XMS_ITS | Continuity of Care Document ---
Author Organization [facility] Address [address] [place] [address]- Care Team Providers Care Technical Applications Scientist Name Role Phone Raphael WILDER, Ijeoma Toth Primary Care Physician [facility]counter [facility] Date(s): 03/04/23 - 04/03/23 [facility] [address] [place], [place] [address] Allergies, Adverse Reactions, Alerts [...] acel(Tdap) 12/27/17 Given 1Result Comment: Done at [employer] 2Result Comment: Done at work Medications aspirin [...] 16:52:00 EST, Route to Pharmacy Electronically, [id number], Partial fill upon patient request if the prescription is for a schedule II opi... Start Date: 09/24/22 Status: Ordered chlorthalidone 25 mg oral tablet 25 mg, 1, tablet, By Mouth, Daily, # 90 tablet, Refills 3, Tot. Refills 3, Maintenance, 08/13/22 12:20:00 EDT, Route to Pharmacy Electronically, [facility]/pharmacy #[id number], 152.4, cm, 08/10/22 15:55:00 [...] 15:40:00 EDT, 03/25/23 15:40:00 EDT, Capsule, [facility]/pharmacy #[id number], Partial fill upon patient request... Start [...] 9:30:00 EDT, Route to Pharmacy Electronically, [facility]/pharmacy [...] 9:29:00 EDT, Route to Pharmacy Electronically, [facility]/pharmacy [...] Team Personnel Name: Bailee Martinez RN Position: [facility] AMB Nurse Member Role: Primary Care Nurse Name: Ijeoma Lim MD Position: [facility] Physician - Primary Care Member Role: PCP Address: Address: [address] [place] [address] Adult & [place] [address]- Care Team Related Persons Name: TAZ BATES Address: home [address] [place] [address]
--- OUTSIDE RECORDS SUMMARY | 2024-02-27 23:33 | XMS_ITS | Continuity of Care Document ---
Author Organization [facility] Address [address] [place] [address]- Care Team Providers Care Hr Specialist Name Role Phone Raphael WILDER, Ijeoma Toth Primary Care Physician [facility]counter [facility] Date(s): 08/06/22 - 09/05/22 [facility] [address] [place], [place] [address] Allergies, Adverse Reactions, Alerts [...] acel(Tdap) 12/27/17 Given 1Result Comment: Done at [employer] 2Result Comment: Done at work Medications aspirin [...] 08/27/22 7:59:00 EST, Route to Pharmacy Electronically, [facility] ST[facility] 29439, 152.4, cm, 08/10/22 15:55:00 EDT, Height, 75.6, [...] 3 Refills, Maintenance, 07/20/22 8:57:00 EDT, Tablet, [facility]/pharmacy #[id number], Partial fill upon patient request if the prescription is for a schedule II opioid drug., 15... Start Date: 07/20/22 Status: Ordered losartan 50 mg oral tablet 50 mg, 1, tablet, By Mouth, Daily, # 90 tablet, Refills 3, Tot. Refills 3, Maintenance, 04/26/22 15:42:00 EDT, Route to Pharmacy Electronically, [facility]/pharmacy #[id number], 100 mg tab on backorder, 152.4, cm, 03/30/22 13:46:00 EDT, Height, 73.5, kg, 12/12/21... Start Date: 04/26/22 Stop Date: 04/21/23 Status: Ordered rosuvastatin 20 mg oral tablet 1 tablet, By Mouth, Daily, # 90 tablet, 1 Refills, Maintenance, 07/18/22 17:23:00 EDT, [facility]/pharmacy#[id number], 152.4, cm, 06/28/22 16:41:00 EDT, Height, 75.6, kg, 05/14/22 7:15:00 EDT, Dry Weight Start Date: 07/18/22 Status: Ordered Vitamin D3 1000 intl units oral capsule 1 capsule = 1,000 International_Units, By Mouth, Daily, # 90 capsule, 1 Refills, Maintenance, 07/17/22 19:46:00 EDT, Capsule, [facility]/pharmacy #[id number], 152.4, cm, 06/28/22 16:41:00 EDT, [...] Team Personnel Name: Michelle LIN, Bailee Position: [facility] AMB Nurse Member Role: Primary Care Nurse Name: Ijeoma Lim MD Position: [facility] Primary Care Physician Member Role: PCP Address: Address: [address] [place] [address] Adult & Pediatric [address] Care Team Related Persons Name: TAZ BATES Address: home [address] [place] [address]
--- OUTSIDE RECORDS SUMMARY | 2024-02-27 23:33 | XMS_ITS | Continuity of Care Document ---
Author Organization [facility] Address [address] [place] [address]- Care Team Providers Care Room Service Manager Name Role Phone Raphael WILDER, Ijeoma Toth Primary Care Physician Encounter [facility] [place] Date(s): 05/12/21 - 06/11/21 [facility] [address] [place], [place] [address] Attending Physician: Gloria Prescott Admitting [...] 13:54:00 EDT, Inhaler, Route to Pharmacy Electronically, [id number], [facility]/pharmacy #[id number], 152, cm, 01/18/20 9:51:00 EDT, [place]... Start Date: 02/12/20 Status: Ordered Teodora 0.1 mg/24 hours twice weekly transdermal film, extended release See Instructions, 0.1 mg estradiol patch transdermal, reapply every 72 hours, # 2 patch, 0 Refills,Maintenance, 01/28/21 17:24:00 EDT, [facility]/pharmacy #[id number], Partial fill upon patient request if the prescription is for a schedule II opioid drug., 152.4,... Start Date: 01/28/21 Status: Ordered chlorthalidone 25 mg oral tablet 25 mg, 1, tablet, By Mouth, Daily, # 90 tablet, Refills 3, Tot. Refills 3, Maintenance, 07/07/20 14:00:00 EDT, Route to Pharmacy Electronically, [facility]/pharmacy #[id number], 152, cm, 03/16/20 15:37:00 EDT, [...] 06/05/21 8:04:00 EDT, Tablet, [facility]/pharmacy #[id number], Partial fill upon patient request if the prescription is for a schedule IIopioid drug., 152.4, cm, 06/05/21 7:52:00 EDT, [place]... Start Date: 06/05/21 Stop Date: 05/31/22 Status: Ordered losartan 50 mg oral tablet 50 mg, 1, tablet, By Mouth, Daily, # 90 tablet, Refills 1, Tot. Refills 1, Maintenance, 01/26/21 14:32:00 EDT, Route to Pharmacy Electronically, [facility]/pharmacy #[id number], 100 mg tab on backorder, 152.4, cm, 01/20/21 12:01:00 EDT, Height, 73.64, kg, 01/20/21... Start Date: 01/26/21 Stop Date: 07/25/21 Status: Ordered omeprazole 20 mg oral enteric coated capsule 1 capsule = 20 mg, By Mouth, Daily, # 90 capsule, 3 Refills, Maintenance, 05/26/20 15:26:00 EDT, ECCapsule, [facility]/pharmacy #[id number], 152, cm, 03/16/20 15:37:00 EDT, Height, 67.27, kg, 01/26/19 8:44:00 EDT, Dry Weight Start Date: 05/26/20 Status: Ordered pravastatin 40 mg oral tablet 1 tablet = 40 mg, By Mouth, Daily, # 30 tablet, 5 Refills, Maintenance, 07/26/20 10:27:00 EDT, Tablet, [facility]/pharmacy #[id number], 152, cm, 07/26/20 10:00:00 EDT, Height, 67.27, kg, 01/26/19 8:44:00 EDT, DryWeight Start Date: 07/26/20 Status: Ordered simethicone 80 mg oral tablet, chewable 80 mg, Chew, 5 times a day, PRN, For Gaseous Distention/Discomfort, # 90 tablet, Refills 0, Tot. Refills 0, Maintenance, Other, 05/12/21 16:35:00 EDT, Route to Pharmacy Electronically, [facility]/pharmacy #[id number], Partial fill upon patient request [...]
--- OUTSIDE RECORDS SUMMARY | 2024-02-27 23:33 | XMS_ITS | Continuity of Care Document ---
Author Organization [facility] Address [address] [place] [address]- Care Team Providers Care Central Service Tech Name Role Phone Ijeoma Lim MD Primary Care Physician Encounter [facility] Date(s): 03/07/20 - 03/14/20 [facility] [address] [place] [address]- [facility] Attending Physician: Jose Antonio WILDER, Ibitoro Referring Physician: Ijeoma Lim MD Allergies, Adverse [...] 13:54:00 EDT, Inhaler, Route to Pharmacy Electronically, [id number], [facility]/pharmacy #[id number], 152, cm, 01/18/20 9:51:00 EDT, [place]... Start Date: 02/12/20 Status: Ordered aspirin 81 mg oral delayed release tablet 81 mg, 1, tablet, By Mouth, Daily, # 30 tablet, Refills 5, Tot. Refills 5, Maintenance, 02/15/20 15:17:00 EDT, Route to Pharmacy Electronically, [facility]/pharmacy #[id number], 152, cm, 01/18/20 9:51:00 EDT, Height, 67.27, kg, 01/26/19 8:44:00 EDT, Dry Weight Start Date: 02/15/20 Status: Ordered chlorthalidone 25 mg oral tablet 25 mg, 1, tablet, By Mouth, Daily, # 30 tablet, Refills 5, Tot. Refills 5, Maintenance, 02/15/20 15:17:00 EDT, Route to Pharmacy Electronically, [facility]/pharmacy #[id number], 152, cm, 01/18/20 9:51:00 EDT, [...] = 137 mcg, By Mouth, Daily, # 30 tablet, 3 Refills, Maintenance, 03/03/20 13:39:00 EDT, [facility]/pharmacy #[id number], 152, cm, 02/22/20 12:49:00 EDT, Height, 67.27, kg, 01/26/19 8:44:00 EDT, Dry Weight Start Date: 03/03/20 Status: Ordered losartan 50 mg oral tablet 100 mg, 2, tablet, By Mouth, Daily, # 180 tablet, Refills 3, Tot. Refills 3, Maintenance, 01/21/20 9:57:00 EDT, [id number] 100 mg tab on backorder, 152, cm,01/18/20 9:51:00 EDT, Height, 67.27, kg, 01/26/19 8... Start Date: 01/21/20 Stop Date: 01/15/21 Status: Ordered NIFEdipine 90 mg oral tablet, extended release 90 mg, 1, tablet, By Mouth, Daily, # 30 tablet, Refills 5, Tot. Refills 5, Maintenance, 02/15/20 15:17:00 EDT, Route to Pharmacy Electronically, [facility]/pharmacy #[id number], 152, cm, 01/18/20 9:51:00 EDT, Height, 67.27, kg, 01/26/19 8:44:00 EDT, Dry Weight Start Date: 02/15/20 Stop Date: 08/13/20 Status: Ordered omeprazole 20 mg oral delayed release tablet 1 tablet = 20 mg, By Mouth, Daily, # 60 tablet, 11 Refills, Maintenance, 08/03/19 16:23:53 EDT, EC Tablet, [facility]/pharmacy #[id number], May subsitute capsule as needed by insurance Start Date: 08/03/19 Status: Ordered pravastatin 40 mg oral tablet 1 tablet = 40 mg, By Mouth, Daily, # 30 tablet, 5 Refills, Maintenance, 02/15/20 15:18:00 EDT, Tablet, [facility]/pharmacy #[id number], 152, cm, 01/18/20 9:51:00 EDT, [...]
--- OUTSIDE RECORDS SUMMARY | 2024-02-27 23:33 | XMS_ITS | Continuity of Care Document ---
Author Organization [facility] Address [address] [place] [address]- Care Team Providers Care Pipe Fitter Supervisor Maintenance Name Role Phone Ijeoma Lim MD Primary Care Physician [phone] Encounter [facility] Date(s): 03/30/22 - 04/06/22 [facility] [address] [place], [place] [address] Attending Physician: Ijeoma Lim MD [...] 1 Refills, Physician Stop 04/22/22 14:40:00 EDT, 01/04/22 14:40:00 EST, [facility], 2 puffs [...] Maintenance, 01/11/22 15:35:00 EDT, Tablet, [facility]/pharmacy #[id number], Partial fill upon patient request [...] Procedure Date Related Diagnosis Body Site Status Right carpal tunnel release. 12/12/21 Completed Vital Signs Most recent to oldest [Reference Range]: 1 Height 152.40 cm (03/30/22 1:46 PM) Weight 74.5 kg (03/30/22 1:46 PM) Oxygen Saturation [94-100 %] 96 % (03/30/22 1:46 PM) Pulse Rate [55-90 bpm] 77 bpm (03/30/22 1:46 PM) Body Mass Index [18.5-24.99] 32.08 *>HHI* (03/30/22 1:46 PM) Blood Pressure [90-138/55-84 mm Hg] 120/ 66mm Hg (03/30/22 1:46 PM) Mode of Delivery (Oxygen) Room air (03/30/22 1:46 PM) Blood pressure sites Arm, left (03/30/22 1:46 PM) Weight Obtained Via Standing scale (03/30/22 1:46 PM) Social History Social History Type Response Smoking Status Never smoker; Tobacc o user in household: No entered on: 10/01/17 Sex
--- OUTSIDE RECORDS SUMMARY | 2024-02-27 23:33 | XMS_ITS | Continuity of Care Document ---
Author Organization [facility] Address [address] [place] [address] [address] [place] [address]- Care Team Providers Care Power House Engineer Name Role Phone Ijeoma Lim MD Primary Care Physician [phone] Encounter [facility] Date(s): 03/23/22 - 04/22/22 [facility] [address] [place], [place] [address] Allergies, Adverse Reactions, [...] acel(Tdap) 12/27/17 Given 1Result Comment: Done at [employer] 2Result Comment: Done at work Medications aspirin [...] 22:00:00 EST, 11/01/21 22:00:00 EST, Tablet, [facility], Partial fill upon patient request if the prescription is for a schedule II opioid drug., 152.4,... Start Date: 11/01/21 Stop Date: 10/27/22 Status: Ordered levothyroxine 125 mcg (0.125 mg) oral tablet 1 tablet = 125 mcg, By Mouth, Daily, # 90 tablet, 2 Refills, Maintenance, 10/27/22 22:00:00 EST, Tablet, [id number], Partial fill upon [...]
--- OUTSIDE RECORDS SUMMARY | 2024-02-27 23:33 | XMS_ITS | Continuity of Care Document ---
Author Organization [facility] Address [address] [place] [address]- Care Team Providers Care Financial Services Officer Name Role Phone Ijeoma Lim MD Primary Care Physician En[place] [facility] Date(s): 01/02/24 - 02/01/[address] [address]- Attending Physician: Admtr, Ho8 Admitting Physician: Admtr, [...] EDT, Route to Pharmacy Electronically, [facility], 152, cm, 08/01/23 10:56:00 EDT, Height, 76.8, kg, 05/16/23 10:20:00 EDT, Dry Weight Start Date: 08/20/23 Status: Ordered docusate sodium 100 mg oral capsule 100 mg, 1, capsule, By Mouth, 2 times a day, # 60 capsule, Refills 1, Tot. Refills 1, Maintenance, 09/13/23 9:07:00 EST, Route to Pharmacy Electronically, [facility]/pharmacy #[id number], Partial fill upon patient request [...] EDT, Route to Pharmacy Electronically, [facility], 152, cm, 08/01/23 10:56:00 EDT, Height, 76.8, kg, 05/16/23 10:20:00 EDT, Dry Weight Start Date: 08/24/23 Status: Ordered fluticasone 50 mcg/inh nasal spray 1 sprays, Nares, Both, 2 times a day, # 16 Gm, 0 Refills, Maintenance, 08/01/23 11:21:00 EDT, [place], [facility]/pharmacy #[id number], Partial fill upon patient request if the prescription is for a schedule II opioid drug., 1 sprays Nares, Both 2 times a day, 152,... Start Date: 08/01/23 Status: Ordered levothyroxine 0.137 mg oral tablet 1 tablet = 137 mcg, By Mouth, Daily, # 60 tablet, 6 Refills, Maintenance, 09/16/23 19:32:00 EST, Tablet, [facility]/pharmacy #[id number], Partial fill upon patient request if the prescription is for a schedule IIopioid drug., 152, cm, 09/13/23 8:42:00 EST, Height... Start Date: 09/16/23 Stop Date: 11/09/24 Status: Ordered losartan 50 mg oral tablet 50 mg, 1, tablet, By Mouth, Daily, # 90 tablet, Refills 3, Tot. Refills 3, Maintenance, 05/06/23 10:17:00 EDT, Route to Pharmacy Electronically, [facility]/pharmacy #[id number], 100 mg tab on backorder, 152.4, cm, 05/06/23 9:42:00 EDT, Height, 75.6, kg, 05/14/22 7... Start Date: 05/06/23 Stop Date: 04/30/24 Status: Ordered montelukast 10 mg oral tablet 10 mg, 1, tablet, By Mouth, Daily, # 90 tablet, Refills 3, Tot. Refills 3, Maintenance, 05/06/23 10:17:00 EDT, Route to Pharmacy Electronically, [facility]/pharmacy #[id number], Partial fill upon patient request if the prescription is for a schedule II opioid drug... Start Date: 05/06/23 Stop Date: 04/30/24 Status: Ordered omeprazole 40 mg oral enteric coated capsule 1 capsule = 40 mg, By Mouth, Daily, # 90 capsule, 3 Refills, Maintenance, 10/09/23 16:07:00 EST, ECCapsule, [facility]/pharmacy #[id number], Partial fill upon patient request [...] in household: No entered on: 10/01/17 Sex EKG study * Event Display: EKG Authored Date: Patient Care team information Care Team Personnel Name: Raphael WILDER, Ijeoma Toth Position: S Physician - Primary Care Member Role: PCP Address: Address: [address] [place] [address] Adult & [place] [address]- [place] Care Team Related Persons Name: BATES TAZ Address: home [address] [place] [address]
--- OUTSIDE RECORDS SUMMARY | 2024-02-27 23:33 | XMS_ITS | Continuity of Care Document ---
Author Organization [facility] Address [address] [place] [address]- Care Team Providers Care Side Guider Name Role Phone Ijeoma Lim MD Primary Care Physician [place] [facility] [place]20 [facility] [address] [place] [address]- [facility] Attending Physician: Ijeoma Lim MD Allergies, Adverse [...] 13:54:00 EDT, Inhaler, Route to Pharmacy Electronically, [id number], [facility]/pharmacy #[id number], 152, cm, 01/18/20 9:51:00 EDT, [place]... Start Date: 02/12/20 Status: Ordered aspirin 81 mg oral delayed release tablet 81 mg, 1, tablet, By Mouth, Daily, # 30 tablet, Refills 5, Tot. Refills 5, Maintenance, 02/15/20 15:17:00 EDT, Route to Pharmacy Electronically, [facility]/pharmacy #[id number], 152, cm, 01/18/20 9:51:00 EDT, Height, 67.27, kg, 01/26/19 8:44:00 EDT, Dry Weight Start Date: 02/15/20 Status: Ordered chlorthalidone 25 mg oral tablet 25 mg, 1, tablet, By Mouth, Daily, # 90 tablet, Refills 3, Tot. Refills 3, Maintenance, 07/07/20 14:00:00 EDT, Route to Pharmacy Electronically, [facility]/pharmacy #[id number], 152, cm, 03/16/20 15:37:00 EDT, Height, [...] tablet, 0 Refills, Maintenance, 05/25/20 9:12:00 EDT, [facility]/pharmacy #[id number], labs needed, 152, cm, 03/16/20 15:37:00 EDT, Height, 67.27, kg, 01/26/19 8:44:00 EDT, Dry Weight Start Date: 05/25/20 Status: Ordered losartan 50 mg oral tablet 50 mg, 1, tablet, By Mouth, Daily, # 90 tablet, Refills 3, Tot. Refills 3, Maintenance, 01/21/20 9:57:00 EDT, [id number] 100 mg tab on backorder, 152, [...] 3 Refills, Maintenance, 05/25/20 10:43:00 EDT, Capsule, [facility]/pharmacy #[id number], 152, cm, 03/16/20 15:37:00 EDT, Height, [...] oldest [Reference Range]: 1 Height 152 cm (07/26/20 10:00 AM) Weight 75.3 kg (07/26/20 10:00 AM) Oxygen Saturation [94-100 %] 98 % (07/26/20 10:00 AM) Pulse Rate [55-90 bpm] 76 bpm (07/26/20 10:00 AM) Body Mass Index [18.5-24.99] 32.59 *>HHI* (07/26/20 10:00 AM) Blood Pressure [90-138/55-84 mm Hg] 126/ 70mm Hg (07/26/20 10:00 AM) Temperature [96.8-100.4 DegF] 98.2 DegF (07/26/20 10:00 AM) Mode of Delivery (Oxygen) Room air (07/26/20 10:00 AM) Blood pressure sites Arm, left (07/26/20 10:00 AM) Temperature Route Temporal (07/26/20 10:00 AM) Weight Obtained Via Standing scale (07/26/20 10:00 AM) Social History Social History Type Response Smoking Status Never smoker; Tobacc o user in household: No entered on: 10/01/17 Sex
--- OUTSIDE RECORDS SUMMARY | 2024-02-27 23:33 | XMS_ITS | Continuity of Care Document ---
Author Organization [facility] Address [address] [place] [address]- Care Team Providers Care Skiver Machine Name Role Phone Ijeoma Lim MD Primary Care Physician [place] [facility] [place] - 10/05/[address] [address]- Attending Physician: Garima Zuluaga MD Admitting Physician: [...] 0 Refills, Maintenance, 09/13/23 9:28:00 EST, [id number], Partial fill upon patient request if the prescription is for a schedule II opioid... Start Date: 09/13/23 Status: Ordered chlorthalidone 25 mg oral tablet 1, tablet, By Mouth, Daily, # 90 tablet, Refills 1, Maintenance, 08/20/23 0:15:00 EDT, Route to Pharmacy Electronically, [facility], 152, cm, 08/01/23 10:56:00 EDT, Height, 76.8, kg, 05/16/23 10:20:00 EDT, Dry Weight Start Date: 08/20/23 Status: Ordered docusate sodium 100 mg oral capsule 100 mg, 1, capsule, By Mouth, 2 times a day, # 60 capsule, Refills 1, Tot. Refills 1, Maintenance, 09/13/23 9:07:00 EST, Route to Pharmacy Electronically, [facility]/pharmacy [...] EDT, Route to Pharmacy Electronically, [facility], 152, cm, 08/01/23 10:56:00 EDT, Height, 76.8, kg, 05/16/23 10:20:00 EDT, Dry Weight Start Date: 08/24/23 Status: Ordered fluticasone 50 mcg/inh nasal spray 1 sprays, Nares, Both, 2 times a day, # 16 Gm, 0 Refills, Maintenance, 08/01/23 11:21:00 EDT, [place], [facility]/pharmacy #[id number], Partial fill upon patient request if the prescription is for a schedule II opioid drug., 1 sprays Nares, Both 2 times a day, 152,... Start Date: 08/01/23 Status: Ordered levothyroxine 0.137 mg oral tablet 1 tablet = 137 mcg, By Mouth, Daily, # 60 tablet, 6 Refills, Maintenance, 09/16/23 19:32:00 EST, Tablet, [facility]/pharmacy #[id number], Partial fill [...] tablet, 3 Refills, Maintenance, 01/09/23 9:26:00 EDT, [facility]/pharmacy #[id number], 152.4, cm, 01/09/23 [...] Primary Care Member Role: PCP Address: Address: [address] [place] [address] Adult [place] [address]- Care Team Related Persons Name: BATES TAZ Address: home [address] [place] [address]
--- OUTSIDE RECORDS SUMMARY | 2024-02-27 23:33 | XMS_ITS | Continuity of Care Document ---
Author Organization [facility] Address [address] [place] [address]- Care Team Providers Care Reverberatory Furnace Supervisor Name Role Phone Raphael WILDER, Ijeoma Toth Primary Care Physician [phone] Encounter [facility] Date(s): 09/03/20 - 10/03/20 [facility] [address] [place], [place] [address] Allergies, Adverse Reactions, Alerts [...] 13:54:00 EDT, Inhaler, Route to Pharmacy Electronically, [id number], [facility]/pharmacy #[id number], 152, cm, 01/18/20 9:51:00 EDT, [place]... Start Date: 02/12/20 Status: Ordered Aspirin Enteric Coated 81 mg oral delayed release tablet 1 tablet, By Mouth, Daily, # 90 tablet, 3 Refills, Maintenance, 08/19/20 9:23:00 EDT, [facility], 152, cm, 07/26/20 10:00:00 EDT, Height, 67.27, kg, 01/26/19 8:44:00 EDT, Dry Weight Start Date: 08/19/20 Status: Ordered chlorthalidone 25 mg oral tablet 25 mg, 1, tablet, By Mouth, Daily, # 90 tablet, Refills 3, Tot. Refills 3, Maintenance, 07/07/20 14:00:00 EDT, Route to Pharmacy Electronically, [facility]/pharmacy #[id number], 152, cm, 03/16/20 15:37:00 EDT, Height, [...] tablet, 0 Refills, Maintenance, 05/25/20 9:12:00 EDT, [facility]/pharmacy #[id number], labs needed, 152, cm, 03/16/20 15:37:00 EDT, Height, 67.27, kg, 01/26/19 8:44:00 EDT, Dry Weight Start Date: 05/25/20 Status: Ordered losartan 50 mg oral tablet 50 mg, 1, tablet, By Mouth, Daily, # 90 tablet, Refills 3, Tot. Refills 3, Maintenance, 01/21/20 9:57:00 EDT, Route to Pharmacy Electronically, [facility]/pharmacy #[id number], 100 mg tab on backorder, 152, [...]
--- OUTSIDE RECORDS SUMMARY | 2024-02-27 23:33 | XMS_ITS | Continuity of Care Document ---
Author Organization [facility] Address [address] [place] [address] ve [address] [place] [address]- Care Team Providers Care Dry Cell Sealer Name Role Phone Ijeoma Lim MD Primary Care Physician [phone] [place] [facility] [place] 11[place]21 - 11/27/21 [facility] [address] [place] [address]- Attending Physician: Santos Zapata MD Referring Physician: Ijeoma Lim MD Allergies, [...] patch, 0 Refills,Maintenance, 01/28/21 17:24:00 EDT, [facility]/pharmacy #[id number], Partial fill upon patient request if [...] oldest [Reference Range]: 1 Height 152.40 cm (11/20/21 9:21 AM) Weight 76 kg (11/20/21 9:21 AM) Body Mass Index [18.5-24.99] 32.72 *>HHI* (11/20/21 9:21 AM) Temperature [96.8-100.4 DegF] 97.2 DegF (11/20/21 9:21 AM) Social History Social History Type Response Smoking Status Never smoker; Tobacc o user in household: No entered on: 10/01/17 Sex
--- OUTSIDE RECORDS SUMMARY | 2024-02-27 23:33 | XMS_ITS | Continuity of Care Document ---
Author Organization [facility] Address [address] [place] [address]- Care Team Providers Care Poultry Field Service Technician Name Role Phone Raphael WILDER, Ijeoma Toth Primary Care Physician [phone] Encounter [facility] Date(s): 08/13/22 - 09/12/22 [facility] [address] [place], [place] [address] Allergies, Adverse Reactions, Alerts Substance [...] acel(Tdap) 12/27/17 Given 1Result Comment: Done at [employer] 2Result Comment: Done at work Medications [...] EDT, Route to Pharmacy Electronically, [facility]/pharmacy #[id number], 152.4, cm, 08/10/22 15:55:00 EDT, Height, 75.6, kg, 05/14/22 7:15:00 EDT, Dry Weight Start Date: 08/13/22 Stop Date: 08/08/23 Status: Ordered cyclobenzaprine 10 mg oral tablet 1, tablet, By Mouth, 3 times a day, # 10 tablet, Refills 1, Maintenance, 08/27/22 7:59:00 EST, Route to Pharmacy Electronically, [facility] STORE [id number], 152.4, cm, 08/10/22 15:55:00 EDT, Height, 75.6, [...] Maintenance, 01/11/22 15:35:00 EDT, Tablet, [facility]/pharmacy #[id number], Partial fill upon patient request if the prescription is for a schedule II opioid drug., 152.4, cm, 01/11/22 15:23:00... Start Date: 01/11/22 Status: Ordered levothyroxine 0.137 mg oral tablet See Instructions, 1 tablet By Mouth 6 days per week and 1/2 pill on day 7, # 90 each, 3 Refills, Maintenance, 07/20/22 8:57:00 EDT, Tablet, [facility]/pharmacy #[id number], Partial fill upon patient request if the prescription is for a schedule II opioid drug., 15... Start Date: 07/20/22 Status: Ordered losartan 50 mg oral tablet 50 mg, 1, tablet, By Mouth, Daily, # 90 tablet, Refills 3, Tot. Refills 3, Maintenance, 04/26/22 15:42:00 EDT, Route to Pharmacy Electronically, [facility]/pharmacy #[id number], 100 mg tab on backorder, 152.4, cm, 03/30/22 13:46:00 EDT, Height, 73.5, kg, 12/12/21... Start Date: 04/26/22 Stop Date: 04/21/23 Status: Ordered rosuvastatin 20 mg oral tablet 1 tablet, By Mouth, Daily, # 90 tablet, 1 Refills, Maintenance, 07/18/22 17:23:00 EDT, [facility]/pharmacy#[id number], 152.4, cm, 06/28/22 16:41:00 EDT, Height, 75.6, kg, 05/14/22 7:15:00 EDT, Dry Weight Start Date: 07/18/22 Status: Ordered Vitamin D3 1000 intl units oral capsule 1 capsule = 1,000 International_Units, By Mouth, Daily, # 90 capsule, 1 Refills, Maintenance, 07/17/22 19:46:00 EDT, Capsule, [facility]/pharmacy #[id number], 152.4, cm, 06/28/22 16:41:00 [...] Team Personnel Name: Michelle LIN, Bailee Position: [facility] Nurse Member Role: Primary Care Nurse Name: Ijeoma Lim MD Position: [facility] Primary Care Physician Member Role: PCP Address: Address: [address] [place] [address] Adult & Pediatric [address] Care Team Related Persons Name: TAZ BATES Address: home [address] [place] [address]
--- OUTSIDE RECORDS SUMMARY | 2024-02-27 23:33 | XMS_ITS | Continuity of Care Document ---
Author Organization [facility] Address [address] [place] [address] ve [address] [place] [address]- Care Team Providers Care Telemetry Registered Nurse Name Role Phone Ijeoma Lim MD Primary Care Physician [phone] Encounter [facility] Date(s): 12/06/21 - 01/05/22 [facility] [address] [place], [place] [address] Allergies, Adverse Reactions, [...] opioid drug. Start Date: 12/11/21 Status: Ordered levothyroxine 125 mcg (0.125 mg) [...]
--- OUTSIDE RECORDS SUMMARY | 2024-02-27 23:33 | XMS_ITS | Continuity of Care Document ---
Author Organization [facility] Address [address] [place] [address]- Care Team Providers Care Director Software Development Name Role Phone Ijeoma Lim MD Primary Care Physician [place] [facility] [place] 09/09/23 - 09/16/23 [facility] [address] [place], [place] [address] Encounter Diagnosis BRBPR (bright red blood per rectum)(Discharge Diagnosis) - 09/10/23 Hypertension(Discharge Diagnosis) - 09/10/23 Hypothyroidism(Discharge Diagnosis) - 09/10/23 Papillary thyroid carcinoma - s/p total thyroidectomy 11/12/2018(Discharge Diagnosis) - 09/10/23 Hyperlipidemia(Discharge Diagnosis) - 09/10/23 Attending Physician: Ijeoma Lim MD Allergies, Adverse [...] acel(Tdap) 12/27/17 Given 1Result Comment: Done at [facility] 2Result Comment: Done at work Medications barium [...] 08/20/23 0:15:00 EDT, Route to Pharmacy Electronically, [facility], 152, cm, 08/01/23 10:56:00 EDT, Height, 76.8, [...] 08/24/23 9:01:00 EDT, Route to Pharmacy Electronically, [facility] 6[facility], 152, cm, 08/01/23 10:56:00 EDT, Height, 76.8, kg, 05/16/23 10:20:00 EDT, Dry Weight Start Date: 08/24/23 Status: Ordered fluticasone 50 mcg/inh nasal spray 1 sprays, Nares, Both, 2 times a day, # 16 Gm, 0 Refills, Maintenance, 08/01/23 11:21:00 EDT, [place], [facility]/pharmacy #[id number], Partial fill upon patient request if the prescription is for a schedule II opioid drug., 1 sprays Nares, Both 2 times a day, 152,... Start Date: 08/01/23 Status: Ordered levothyroxine 0.137 mg oral tablet 1 tablet = 137 mcg, By Mouth, Daily, # 60 tablet, 6 Refills, Maintenance, 09/16/23 19:32:00 EST, Tablet, [facility]/pharmacy #[id number], Partial fill upon patient request if the prescription is for a schedule IIopioid drug., 152, cm, 09/13/23 8:42:00 EST, Height... Start Date: 09/16/23 Stop Date: 11/09/24 Status: Ordered losartan 50 mg oral tablet 50 mg, 1, tablet, By Mouth, Daily, # 90 tablet, Refills 3, Tot. Refills 3, Maintenance, 05/06/23 10:17:00 EDT, Route to Pharmacy Electronically, [facility]/pharmacy #[id number], 100 mg tab on backorder, 152.4, cm, 05/06/23 9:42:00 EDT, Height, 75.6, kg, 05/14/22 7... Start Date: 05/06/23 Stop Date: 04/30/24 Status: Ordered montelukast 10 mg oral tablet 10 mg, 1, tablet, By Mouth, Daily, # 90 tablet, Refills 3, Tot. Refills 3, Maintenance, 05/06/23 10:17:00 EDT, Route to Pharmacy Electronically, [facility]/pharmacy #[id number], Partial fill upon patient request if the prescription is for a schedule II opioid drug... Start Date: 05/06/23 Stop Date: 04/30/24 Status: Ordered nitroglycerin 0.4% rectal ointment 1 application, Rectally, Every 12 hours, for 7 days, wash hands immediately after application, # 30Gm, 0 Refills, Acute 09/20/23 9:07:00 EST, 09/13/23 9:07:00 EST, Ointment, [facility]/pharmacy #[id number], Partial fill upon patient request if the prescription is... Start Date: 09/13/23 Stop Date: 09/20/23 Status: Ordered rosuvastatin 20 mg oral tablet [...] 3 Refills, Maintenance, 01/09/23 9:26:00 EDT, Capsule, [facility]/pharmacy #[id number], 152.4, cm, 01/09/23 8:53:00 EDT, [...] Effective Dates Health Status Clinical Service Informant BRBPR (bright red blood per rectum) Discharge Diagnosis 09/10/23 Hypertension Discharge Diagnosis 09/10/23 Hypothyroidism Discharge Diagnosis 09/10/23 Papillary thyroid carcinoma - s/p total thyroidectomy 11/12/2018 Discharge Diagnosis 09/10/23 Hyperlipidemia Discharge Diagnosis 09/10/23 Vital Signs Most recent to oldest [Reference Range]: 1 Height 152 cm (09/09/23 9:06 AM) Social History Social History Type Response Smoking Status Never smoker; Tobacc o user in household: No entered on: 10/01/17 Sex Patient Care team information Care Team Personnel Name: Raphael WILDER, Ijeoma Toth Position: [facility] Physician - Primary Care Member Role: PCP Address: Address: [address] [place] [address] Adult & [place] [address]- Care Team Related Persons Name: TAZ BATES Address: home [address] [place] [address]
--- OUTSIDE RECORDS SUMMARY | 2024-02-27 23:33 | XMS_ITS | Continuity of Care Document ---
Author Organization [facility] Address [address] [place] [address]- Care Team Providers Care Pocket Flap Creasing Machine Operator Name Role Phone Ijeoma Lim MD Primary Care Physician [place] [facility] [place] Date(s): 10/09/23 - 11/08/23 [facility] [address] [place] [address]- Attending Physician: AdmGloria fernandez Admitting Physician: AdmtrGloria [...] acel(Tdap) 12/27/17 Given 1Result Comment: Done at [employer] 2Result Comment: Done at work Medications barium sulfate 2% oral suspension See Instructions, dispense 2 bottles 1st bottle 6 hrs before & 2nd bottle [address], # 2each, 0 Refills, Maintenance, 09/13/23 9:28:00 EST, [facility]/pharmacy #[id number], Partial fill upon patient request if the prescription is for a schedule II opioid... Start Date: 09/13/23 Status: Ordered chlorthalidone 25 mg oral tablet 1, tablet, By Mouth, Daily, # 90 tablet, Refills 1, Maintenance, 08/20/23 0:15:00 EDT, Route to Pharmacy Electronically, [facility], 152, cm, 08/01/23 10:56:00 EDT, Height, 76.8, kg, 05/16/23 10:20:00 EDT, Dry Weight Start Date: 08/20/23 Status: Ordered docusate sodium 100 mg oral capsule 100 mg, 1, capsule, By Mouth, 2 times a day, # 60 capsule, Refills 1, Tot. Refills 1, Maintenance, 09/13/23 9:07:00 EST, Route to Pharmacy Electronically, [facility]/pharmacy #[id number], Partial fill upon patient request [...] EDT, Route to Pharmacy Electronically, [facility], 152, cm, 08/01/23 10:56:00 EDT, Height, 76.8, kg, 05/16/23 10:20:00 EDT, Dry Weight Start Date: 08/24/23 Status: Ordered fluticasone 50 mcg/inh nasal spray 1 sprays, Nares, Both, 2 times a day, # 16 Gm, 0 Refills, Maintenance, 08/01/23 11:21:00 EDT, [place], [facility]/pharmacy #[id number], Partial fill upon patient request if the prescription is for a schedule II opioid drug., 1 sprays Nares, Both 2 times a day, 152,... Start Date: 08/01/23 Status: Ordered levothyroxine 0.137 mg oral tablet 1 tablet = 137 mcg, By Mouth, Daily, # 60 tablet, 6 Refills, Maintenance, 09/16/23 19:32:00 EST, Tablet, [facility]/pharmacy #[id number], Partial fill upon patient request if the prescription is for a schedule IIopioid drug., 152, cm, 09/13/23 8:42:00 EST, Height... Start Date: 09/16/23 Stop Date: 11/09/24 Status: Ordered losartan 50 mg oral tablet 50 mg, 1, tablet, By Mouth, Daily, # 90 tablet, Refills 3, Tot. Refills 3, Maintenance, 05/06/23 10:17:00 EDT, Route to Pharmacy Electronically, [facility]/pharmacy #[id number], 100 mg tab on backorder, 152.4, cm, 05/06/23 9:42:00 EDT, Height, 75.6, kg, 05/14/22 7... Start Date: 05/06/23 Stop Date: 04/30/24 Status: Ordered montelukast 10 mg oral tablet 10 mg, 1, tablet, By Mouth, Daily, # 90 tablet, Refills 3, Tot. Refills 3, Maintenance, 05/06/23 10:17:00 EDT, Route to Pharmacy Electronically, [facility]/pharmacy #[id number], Partial fill upon patient request if the prescription is for a schedule II opioid drug... Start Date: 05/06/23 Stop Date: 04/30/24 Status: Ordered omeprazole 40 mg oral enteric coated capsule 1 capsule = 40 mg, By Mouth, Daily, # 90 capsule, 3 Refills, Maintenance, 10/09/23 16:07:00 EST, ECCapsule, [facility]/pharmacy #[id number], Partial fill upon patient request [...] Primary Care Member Role: PCP Address: Address: [address] [place] [address] Adult & [place] [address]- Care Team Related Persons Name: TAZ BATES Address: home [address] [place] [address]
--- OUTSIDE RECORDS SUMMARY | 2024-02-27 23:33 | XMS_ITS | Continuity of Care Document ---
Author Organization [facility] Address [address] [place] [address]- Care Team Providers Care Sales Representative Raw Fibers Name Role Phone Raphael WILDER, Ijeoma Toth Primary Care Physician [facility]counter [facility] Date(s): 11/07/21 - 12/07/21 [facility] [address] [place], [place] [address] Allergies, Adverse Reactions, Alerts Substance [...] 2 patch, 0 Refills,Maintenance, 01/28/21 17:24:00 EDT, [facility]/pharmacy #[id number], Partial fill upon patient [...] 5 Refills, Maintenance, 07/26/20 10:27:00 EDT, Tablet, [facility]/pharmacy #[id number], 152, cm, 07/26/20 10:00:00 EDT, Height, 67.27, kg, 01/26/19 8:44:00 EDT, DryWeight Start Date: 07/26/20 Status: Ordered simethicone 80 mg oral tablet, chewable 80 mg, Chew, 5 times a day, PRN, For Gaseous Distention/Discomfort, # 90 tablet, Refills 0, Tot. Refills 0, Maintenance, Other, 05/12/21 16:35:00 EDT, Route to Pharmacy Electronically, [facility]/pharmacy #[id number], Partial fill upon patient [...]
--- OUTSIDE RECORDS SUMMARY | 2024-02-27 23:34 | XMS_ITS | Continuity of Care Document ---
Author Organization [facility] Address [address] [place] [address]- Care Team Providers Care Pea Viner Mechanic Name Role Phone Ijeoma Lim MD Primary Care Physician [phone] [place] [facility] [place]23[place]21 - 03/25/21 [facility] [address] [place], [place] [address] Allergies, Adverse Reactions, Alerts Substance [...] acel(Tdap) 12/27/17 Given 1Result Comment: Done at [employer] 2Result Comment: Done at work Medications albuterol CFC free 90 mcg/inh inhalation aerosol 2, puffs, Inhalation, Every 6 hours, PRN, # 8.5 Gm, Refills 0, Tot. Refills 0, Maintenance, 02/12/20 13:54:00 EDT, Inhaler, Route to Pharmacy Electronically, [id number], [id number], 152, cm, 01/18/20 9:51:00 EDT, [place]dy Start Date: 02/12/20 Status: Ordered Teodora 0.1 mg/24 hours twice weekly transdermal film, extended release See Instructions, 0.1 mg estradiol patch transdermal, reapply every 72 hours, # 2 patch, 0 Refills,Maintenance, 01/28/21 17:24:00 EDT, [facility]/pharmacy #[id number], Partial fill upon patient request if the prescription is for a schedule II opioid drug., 152.4,... Start Date: 01/28/21 Status: Ordered chlorthalidone 25 mg oral tablet 25 mg, 1, tablet, By Mouth, Daily, # 90 tablet, Refills 3, Tot. Refills 3, Maintenance, 07/07/20 14:00:00 EDT, Route to Pharmacy Electronically, [facility]/pharmacy #[id number], 152, cm, 03/16/20 15:37:00 [...] tablet, 1 Refills, Maintenance, 12/20/20 13:28:00 EST, [facility]/pharmacy #[id number], labs needed, 152, cm, 09/14/20 10:51:00 EST, Height, 67.27, kg, 01/26/19 8:44:00 EDT, Dry Weight Start Date: 12/20/20 Status: Ordered losartan 50 mg oral tablet 50 mg, 1, tablet, By Mouth, Daily, # 90 tablet, Refills 1, Tot. Refills 1, Maintenance, 01/26/21 14:32:00 EDT, Route to Pharmacy Electronically, [facility]/pharmacy #[id number], 100 mg tab on [...]
--- OUTSIDE RECORDS SUMMARY | 2024-02-27 23:34 | XMS_ITS | Continuity of Care Document ---
Author Organization [facility] Address [address] [place] [address]- Care Team Providers Care Sack Keeper Name Role Phone Raphael WILDER, Ijeoma Toth Primary Care Physician [phone] [facility]counter [facility] Date(s): 11/19/22 - 12/19/22 [facility] [address] [place], [place] [address] Allergies, Adverse Reactions, Alerts Substance [...] acel(Tdap) 12/27/17 Given 1Result Comment: Done at [employer] 2Result Comment: Done at work Medications aspirin [...] 09/24/22 16:52:00 EST, [id number] fill upon patient request if the prescription is for a schedule II opi... Start Date: 09/24/22 Status: Ordered chlorthalidone 25 mg oral tablet 25 mg, 1, tablet, By Mouth, Daily, # 90 tablet, Refills 3, Tot. Refills 3, Maintenance, 08/13/22 12:20:00 EDT, Route to Pharmacy Electronically, [facility]/pharmacy #[id number], 152.4, cm, 08/10/22 15:55:00 EDT, Height, 75.6, kg, 05/14/22 7:15:00 EDT, Dry Weight Start Date: 08/13/22 Stop Date: 08/08/23 Status: Ordered cyclobenzaprine 10 mg oral tablet 1, tablet, By Mouth, 3 times a day, # 10 tablet, Refills 1, Maintenance, 08/27/22 7:59:00 EST, Route to Pharmacy Electronically, [facility] STORE 113[facility], 152.4, cm, 08/10/22 15:55:00 EDT, Height, 75.6, [...] 3 Refills, Maintenance, 01/11/22 15:35:00 EDT, Tablet, [facility]/pharmacy #[id number], Partial fill upon patient request if the prescription is for a schedule II opioid drug., 152.4, cm, 01/11/22 15:23:00... Start Date: 01/11/22 Status: Ordered levothyroxine 150 mcg (0.15 mg) oral tablet 1 tablet = 150 mcg, By Mouth, Daily, # 30 tablet, 11 Refills, Maintenance, 11/01/22 13:39:00 EST, [facility]/pharmacy #[id number], Partial fill upon patient request if the prescription is for a schedule II opioiddrug., 152.4, cm, 08/10/22 15:55:00 EDT, Height, 75... Start Date: 11/01/22 Status: Ordered losartan 50 mg oral tablet 50 mg, 1, tablet, By Mouth, Daily, # 90 tablet, Refills 3, Tot. Refills 3, Maintenance, 04/26/22 15:42:00 EDT, Route to Pharmacy Electronically, [facility]/pharmacy #[id number], 100 mg tab on [...] 1 Refills, Maintenance, 07/17/22 19:46:00 EDT, Capsule, [facility]/pharmacy #[id number], 152.4, cm, 06/28/22 16:41:00 EDT, [...] Team Personnel Name: Michelle LIN, Bailee Position: [facility] Nurse Member Role: Primary Care Nurse Name: Raphael WILDER, Ijeoma Toth Position: [facility] Primary Care Physician Member Role: PCP Address: Address: [address] [place] [address] Adult & [place] [address]- Care Team Related Persons Name: TAZ BATES Address: home [address] [place] [address]
--- OUTSIDE RECORDS SUMMARY | 2024-02-27 23:34 | XMS_ITS | Continuity of Care Document ---
Author Organization [facility] Address [address] [place] [address]- Care Team Providers Care Etl Architect Name Role Phone Ijeoma Lim MD Primary Care Physician [phone] [place] [facility] [place] 11/23/20 - 03/23/21 [facility] [address] [place], [place] [address] Attending Physician: Ijeoma Lim MD Allergies, Adverse [...] 13:54:00 EDT, Inhaler, Route to Pharmacy Electronically, [id number], [id number], 152, cm, 01/18/20 9:51:00 EDT, [place]... Start Date: 02/12/20 Status: Ordered Teodora 0.1 mg/24 hours twice weekly transdermal film, extended release See Instructions, 0.1 mg estradiol patch transdermal, reapply every 72 hours, # 2 patch, 0 Refills,Maintenance, 01/28/21 17:24:00 EDT, [id number] Partial fill upon patient request if the prescription is for a schedule II opioid drug., 152.4,... Start Date: 01/28/21 Status: Ordered chlorthalidone 25 mg oral tablet 25 mg, 1, tablet, By Mouth, Daily, # 90 tablet, Refills 3, Tot. Refills 3, Maintenance, 07/07/20 14:00:00 EDT, Route to Pharmacy Electronically, [facility]/pharmacy #[id number], 152, cm, 03/16/20 15:37:00 EDT, Height, [...] tablet, 1 Refills, Maintenance, 12/20/20 13:28:00 EST, [facility]/pharmacy #[id number], labs needed, 152, cm, 09/14/20 10:51:00 EST, Height, 67.27, kg, 01/26/19 8:44:00 EDT, Dry Weight Start Date: 12/20/20 Status: Ordered losartan 50 mg oral tablet 50 mg, 1, tablet, By Mouth, Daily, # 90 tablet, Refills 1, Tot. Refills 1, Maintenance, 01/26/21 14:32:00 EDT, Route to Pharmacy Electronically, [facility]/pharmacy #[id number], 100 mg tab on backorder, 152.4, [...]
--- OUTSIDE RECORDS SUMMARY | 2024-02-27 23:34 | XMS_ITS | Continuity of Care Document ---
Author Organization [facility] Address [address] [place] [address]- Care Team Providers Care Storage Management Architect Name Role Phone Raphael WILDER, Ijeoma Toth Primary Care Physician [phone] [place] [facility] [place](s): 12/12/20 - 12/19/20 [facility] [address] [place], [place] [address] Encounter Diagnosis Menometrorrhagia(Discharge Diagnosis) - 12/12/20 Dizziness(Discharge Diagnosis) - 12/12/20 Attending Physician: Norris Calix MD Referring Physician: Ijeoma Lim MD Allergies, [...] 13:54:00 EDT, Inhaler, Route to Pharmacy Electronically, [id number], [id number], 152, cm, 01/18/20 9:51:00 EDT, Heig... Start Date: 02/12/20 Status: Ordered chlorthalidone 25 mg oral tablet 25 mg, 1, tablet, By Mouth, Daily, # 90 tablet, Refills 3, Tot. Refills 3, Maintenance, 07/07/20 14:00:00 EDT, Route to Pharmacy Electronically, [facility]/pharmacy #[id number], 152, cm, 03/16/20 15:37:00 [...] tablet, 0 Refills, Maintenance, 05/25/20 9:12:00 EDT, [facility]/pharmacy #[id number], labs needed, 152, cm, 03/16/20 15:37:00 EDT, Height, 67.27, kg, 01/26/19 8:44:00 EDT, Dry Weight Start Date: 05/25/20 Status: Ordered losartan 50 mg oral tablet 50 mg, 1, tablet, By Mouth, Daily, # 90 tablet, Refills 3, Tot. Refills 3, Maintenance, 01/21/20 9:57:00 EDT, Route to Pharmacy Electronically, [facility]/pharmacy #[id number], 100 mg tab on backorder, 152, cm, 01/18/20 9:51:00 EDT, Height, 67.27, kg, 01/26/19 8:4... Start Date: 01/21/20 Stop Date: 01/15/21 Status: Ordered omeprazole 20 mg oral enteric coated capsule 1 capsule = 20 mg, By Mouth, Daily, # 90 capsule, 3 Refills, Maintenance, 05/26/20 15:26:00 EDT, ECCapsule, [facility]/pharmacy #[id number], 152, cm, 03/16/20 15:37:00 [...] Effective Dates Health Status Clinical Service Informant Menometrorrhagia Discharge Diagnosis 12/12/20 Dizziness Discharge Diagnosis 12/12/20 Social History Social History Type Response Smoking Status Never smoker; Tobacc o user in household: No entered on: 10/01/17 Sex
--- OUTSIDE RECORDS SUMMARY | 2024-02-27 23:34 | XMS_ITS | Continuity of Care Document ---
Author Organization [facility] Address [address] [place] [address]- Care Team Providers Care Lpn Cma Name Role Phone Ijeoma Lim MD Primary Care Physician [phone] [place] [facility] [place] 12/09/21 [facility] [address] [place], [place] [address] Allergies, Adverse Reactions, Alerts Substance [...] 2 patch, 0 Refills,Maintenance, 01/28/21 17:24:00 EDT, [facility]/pharmacy #[id number], Partial fill upon patient request if [...] 14:39:00 EST, Route to Pharmacy Electronically, [facility], 100 mg tab on backorder, [...] 5 Refills, Maintenance, 07/26/20 10:27:00 EDT, Tablet, [facility]/pharmacy #[id number], 152, cm, 07/26/20 10:00:00 EDT, Height, 67.27, kg, 01/26/19 8:44:00 EDT, DryWeight Start Date: 07/26/20 Status: Ordered simethicone 80 mg oral tablet, chewable 80 mg, Chew, 5 times a day, PRN, For Gaseous Distention/Discomfort, # 90 tablet, Refills 0, Tot. Refills 0, Maintenance, Other, 05/12/21 16:35:00 EDT, Route to Pharmacy Electronically, [facility]/pharmacy #[id number], Partial fill upon patient request if [...]
--- OUTSIDE RECORDS SUMMARY | 2024-02-27 23:34 | XMS_ITS | Continuity of Care Document ---
Author Organization [facility] Address [address] [place] [address]- Care Team Providers Care Exhibit Display Representative Name Role Phone Ijeoma Lim MD Primary Care Physician Encounter [facility] [place] Date(s): 06/23/23 - 07/23/23 [facility] [address] [place], [place] [address] Allergies, Adverse Reactions, Alerts Substance [...] acel(Tdap) 12/27/17 Given 1Result Comment: Done at [employer] 2Result Comment: Done at work Medications chlorthalidone 25 mg oral tablet 25 mg, 1, tablet, By Mouth, Daily, # 90 tablet, Refills 3, Tot. Refills 3, Maintenance, 08/13/22 12:20:00 EDT, Route to Pharmacy Electronically, [facility]/pharmacy #[id number], 152.4, cm, 08/10/22 15:55:00 [...] 05/06/23 10:17:00 EDT, Route to Pharmacy Electronically, [facility]/pharmacy #[id number], 100 mg tab on backorder, 152.4, cm, 05/06/23 9:42:00 EDT, Height, 75.6, kg, 05/14/22 7... Start Date: 05/06/23 Stop Date: 04/30/24 Status: Ordered montelukast 10 mg oral tablet 10 mg, 1, tablet, By Mouth, Daily, # 90 tablet, Refills 3, Tot. Refills 3, Maintenance, 05/06/23 10:17:00 EDT, Route to Pharmacy Electronically, [facility]/pharmacy #[id number], Partial fill upon patient request if the prescription is for a schedule II opioid drug... Start Date: 05/06/23 Stop Date: 04/30/24 Status: Ordered potassium chloride 20 mEq oral tablet, extended release 1 tablet = 20 mEq, By Mouth, Daily, # 30 tablet, 1 Refills, Maintenance, 05/11/23 22:39:00 EDT, ER Tablet, [facility]/pharmacy #[id number], Partial fill upon patient [...] 3 Refills, Maintenance, 01/09/23 9:26:00 EDT, Capsule, [facility]/pharmacy #[id number], 152.4, cm, 01/09/23 8:53:00 EDT, [...] Personnel Name: Raphael WILDER, Ijeoma Toth Position: [facility] Physician - Primary Care Member Role: PCP Address: Address: [address] [place] [address] Adult [place] [address]- Care Team Related Persons Name: TAZ BATES Address: home [address] [place] [address]
--- OUTSIDE RECORDS SUMMARY | 2024-02-27 23:34 | XMS_ITS | Continuity of Care Document ---
Author Organization [facility] Address [address] [place] [address]- Care Team Providers Care Boat Engines Installer Name Role Phone Dariana Evans MD Primary Care Physician [place] [facility] [place]s): 10/07/19 - 11/15/19 [facility] [address] [place] [address] [facility] Attending Physician: Beverley Saul MD Admitting Physician: Beverley Saul MD Allergies, Adverse Reactions, Alerts Substance Reaction [...] 02/17/19 17:50:07 EDT, Route to Pharmacy Electronically, [id number], [id number] Start Date: 02/17/19 Status: Ordered chlorthalidone 25 mg oral tablet 25 mg, 1, tablet, By Mouth, Daily, # 30 tablet, Refills 11, Tot. Refills 11, Maintenance, 02/17/19 17:50:09 EDT, Route to Pharmacy Electronically, [id number], [facility]/pharmacy #[id number] Start Date: 02/17/19 Status: Ordered Citracal [...] 02/17/19 17:50:07 EDT, Route to Pharmacy Electronically, [id number], [facility]/pharmacy #[id number] Start Date: 02/17/19 Stop Date: 02/12/20 [...]
--- OUTSIDE RECORDS SUMMARY | 2024-02-27 23:34 | XMS_ITS | Continuity of Care Document ---
Author Organization [facility] Address [address] [place] [address]- Care Team Providers Care Manager Pe Name Role Phone Raphael WILDER, Ijeoma Toth Primary Care Physician [phone] Encounter [facility] Date(s): 10/19/20 - 11/18/20 [facility] [address] [place], [place] [address] Allergies, Adverse Reactions, Alerts Substance [...] 13:54:00 EDT, Inhaler, Route to Pharmacy Electronically, [id number], [facility]/pharmacy #[id number], 152, cm, 01/18/20 9:51:00 EDT, Heig... Start Date: 02/12/20 Status: Ordered Aspirin Enteric Coated 81 mg oral delayed release tablet 1 tablet, By Mouth, Daily, # 90 tablet, 3 Refills, Maintenance, 08/19/20 9:23:00 EDT, [facility], 152, cm, 07/26/20 10:00:00 EDT, Height, 67.27, kg, 01/26/19 8:44:00 EDT, Dry Weight Start Date: 08/19/20 Status: Ordered chlorthalidone 25 mg oral tablet 25 mg, 1, tablet, By Mouth, Daily, # 90 tablet, Refills 3, Tot. Refills 3, Maintenance, 07/07/20 14:00:00 EDT, Route to Pharmacy Electronically, [facility]/pharmacy #[id number], 152, cm, 03/16/20 15:37:00 EDT, [...] tablet, 0 Refills, Maintenance, 05/25/20 9:12:00 EDT, [facility]/pharmacy #0488, labs needed, 152, cm, 03/16/20 15:37:00 EDT, Height, 67.27, kg, 01/26/19 8:44:00 EDT, Dry Weight Start Date: 05/25/20 Status: Ordered losartan 50 mg oral tablet 50 mg, 1, tablet, By Mouth, Daily, # 90 tablet, Refills 3, Tot. Refills 3, Maintenance, 01/21/20 9:57:00 EDT, Route to Pharmacy Electronically, [facility]/pharmacy #[id number], 100 mg tab on backorder, [...]
--- OUTSIDE RECORDS SUMMARY | 2024-02-27 23:34 | XMS_ITS | Continuity of Care Document ---
Author Organization [facility] Address [address] [place] [address]- Care Team Providers Care Tobacco Feeder Catcher Name Role Phone Raphael WILDER, Ijeoma Toth Primary Care Physician [facility] Date(s): 11/01/21 - 12/01/21 [facility] [address] [place] [id number] Allergies, Adverse Reactions, Alerts Substance Reaction Severity [...] 2 patch, 0 Refills,Maintenance, 01/28/21 17:24:00 EDT, [facility]/pharmacy #[id number], Partial fill upon patient request if [...] 5 Refills, Maintenance, 07/26/20 10:27:00 EDT, Tablet, [facility]/pharmacy #[id number], 152, cm, 07/26/20 10:00:00 EDT, Height, [...]
--- OUTSIDE RECORDS SUMMARY | 2024-02-27 23:34 | XMS_ITS | Continuity of Care Document ---
Author Organization [facility] Address [address] [place] [address]- Care Team Providers Care Bindery Manager Name Role Phone Ijeoma Lim MD Primary Care Physician Encounter [facility] [place] Date(s): 08/08/23 - 09/07/23 [facility] [address] [place] [id number] Allergies, Adverse Reactions, Alerts [...] acel(Tdap) 12/27/17 Given 1Result Comment: Done at [employer] 2Result Comment: Done at work Medications chlorthalidone 25 mg oral tablet 1, tablet, By Mouth, Daily, # 90 tablet, Refills 1, Maintenance, 08/20/23 0:15:00 EDT, Route to Pharmacy Electronically, [facility], 152, cm, 08/01/23 10:56:00 EDT, Height, 76.8, kg, 05/16/23 10:20:00 EDT, Dry Weight Start Date: 08/20/23 Status: Ordered diclofenac sodium 75 mg oral delayed release tablet 1 tablet = 75 mg, By Mouth, 2 times a day, # 28 tablet, 0 Refills, Maintenance, 07/31/23 9:53:00 EDT, [facility]/pharmacy #[id number], Partial fill upon patient request [...] Refills, Maintenance, 01/11/22 15:35:00 EDT, Tablet, [facility]/pharmacy #[id number], Partial fill upon patient request if the prescription is for a schedule II opioid drug., 152.4, cm, 01/11/22 15:23:00... Start Date: 01/11/22 Status: Ordered FLUoxetine 10 mg oral capsule 1, capsule, By Mouth, Daily, # 90 capsule, Refills 1, Maintenance, 08/24/23 9:01:00 EDT, Route to Pharmacy Electronically, [facility] ST[facility] 18743, 152, cm, 08/01/23 10:56:00 EDT, Height, 76.8, kg, 05/16/23 10:20:00 EDT, Dry Weight Start Date: 08/24/23 Status: Ordered fluticasone 50 mcg/inh nasal spray 1 sprays, Nares, Both, 2 times a day, # 16 Gm, 0 Refills, Maintenance, 08/01/23 11:21:00 EDT, [place], [facility]/pharmacy #[id number], Partial fill upon patient request [...] 10:17:00 EDT, Route to Pharmacy Electronically, [facility]/pharmacy #[id number], 100 mg tab on backorder, 152.4, cm, 05/06/23 9:42:00 EDT, Height, 75.6, kg, 05/14/22 7... Start Date: 05/06/23 Stop Date: 04/30/24 Status: Ordered montelukast 10 mg oral tablet 10 mg, 1, tablet, By Mouth, Daily, # 90 tablet, Refills 3, Tot. Refills 3, Maintenance, 05/06/23 10:17:00 EDT, Route to Pharmacy Electronically, [facility]/pharmacy #[id number], Partial fill upon patient request if the prescription is for a schedule II opioid drug... Start Date: 05/06/23 Stop Date: 04/30/24 Status: Ordered potassium chloride 20 mEq oral tablet, extended release 1 tablet = 20 mEq, By Mouth, Daily, # 30 tablet, 1 Refills, Maintenance, 05/11/23 22:39:00 EDT, ER Tablet, [facility]/pharmacy #[id number], Partial fill upon patient request if the prescription is for a schedule II opioid drug., 152.4, cm, 05/06/23 9:42:00 EDT, He... Start Date: 05/11/23 Stop Date: 07/10/23 Status: Ordered rosuvastatin 20 mg oral tablet 1 tablet, By Mouth, Daily, # 90 tablet, 3 Refills, Maintenance, 01/09/23 9:26:00 EDT, [facility]/pharmacy #[id number], 152.4, cm, 01/09/23 8:53:00 EDT, [...] Care Member Role: PCP Address: Address: [address] [place] [address] Adult [place] [address]- Care Team Related Persons Name: TAZ BATES Address: [address] [place] [address]
--- OUTSIDE RECORDS SUMMARY | 2024-02-27 23:34 | XMS_ITS | Continuity of Care Document ---
Author Organization [facility] Address [address] [place] [address]- Care Team Providers Care It Architecture Consultant Name Role Phone Raphael WILDER, Ijeoma Toth Primary Care Physician [facility] Date(s): 01/16/23 - 02/15/23 [facility] [address] [place], [place] [address] Allergies, Adverse Reactions, Alerts [...] acel(Tdap) 12/27/17 Given 1Result Comment: Done at [place] 2Result Comment: Done at work Medications aspirin [...] 09/24/22 16:52:00 EST, [id number] fill upon patient request if the prescription is for a schedule II opi... Start Date: 09/24/22 Status: Ordered chlorthalidone 25 mg oral tablet 25 mg, 1, tablet, By Mouth, Daily, # 90 tablet, Refills 3, Tot. Refills 3, Maintenance, 08/13/22 12:20:00 EDT, Route to Pharmacy Electronically, [facility]/pharmacy #[id number], 152.4, cm, 08/10/22 15:55:00 EDT, Height, 75.6, kg, 05/14/22 7:15:00 EDT, Dry Weight Start Date: 08/13/22 Stop Date: 08/08/23 Status: Ordered cyclobenzaprine 10 mg oral tablet 1, tablet, By Mouth, 3 times a day, # 10 tablet, Refills 1, Maintenance, 08/27/22 7:59:00 EST, Route to Pharmacy Electronically, [facility] STORE 56390, 152.4, cm, 08/10/22 15:55:00 EDT, Height, 75.6, [...] 01/09/23 9:29:00 EDT, Route to Pharmacy Electronically, [facility]/pharmacy #[id number], Partial fill upon [...] tablet, 3 Refills, Maintenance, 01/09/23 9:26:00 EDT, [facility]/pharmacy #[id number], 152.4, cm, 01/09/23 8:53:00 EDT, Height, 75.6, kg, 05/14/22 7:15:00 EDT, Dry Weight Start Date: 01/09/23 Status: Ordered Vitamin D3 1000 intl units oral capsule 1 capsule = 1,000 International_Units, By Mouth, Daily, # 90 capsule, 3 Refills, Maintenance, 01/09/23 9:26:00 EDT, Capsule, [facility]/pharmacy #[id number], 152.4, cm, 01/09/23 8:53:00 [...] Care Nurse Name: Ijeoma Lim MD Position: [facility] Primary Care Physician Member Role: PCP Address: Address: [address] [place] [address] Adult & [place] [address]- Care Team Related Persons Name: TAZ BATES Address: home [address] [place] [address]
--- OUTSIDE RECORDS SUMMARY | 2024-02-27 23:34 | XMS_ITS | Continuity of Care Document ---
Author Organization [facility] Address [address] [place] [address]- Care Team Providers Care Garnett Feeder Name Role Phone Raphael WILDER, Ijeoma Toth Primary Care Physician [facility]counter [facility] Date(s): 02/13/23 - 03/15/23 [facility] [address] [place], [place] [address] Allergies, Adverse Reactions, Alerts Substance [...] acel(Tdap) 12/27/17 Given 1Result Comment: Done at [employer] 2Result Comment: Done at work Medications aspirin [...] 16:52:00 EST, [id number] fill upon patient request if the prescription is for a schedule II opi... Start Date: 09/24/22 Status: Ordered chlorthalidone 25 mg oral tablet 25 mg, 1, tablet, By Mouth, Daily, # 90 tablet, Refills 3, Tot. Refills 3, Maintenance, 08/13/22 12:20:00 EDT, Route to Pharmacy Electronically, [facility]/pharmacy #[id number], 152.4, cm, 08/10/22 15:55:00 EDT, Height, 75.6, kg, 05/14/22 7:15:00 EDT, Dry Weight Start Date: 08/13/22 Stop Date: 08/08/23 Status: Ordered cyclobenzaprine 10 mg oral tablet 1, tablet, By Mouth, 3 times a day, # 10 tablet, Refills 1, Maintenance, 08/27/22 7:59:00 EST, Route to Pharmacy Electronically, [facility] 146[facility], 152.4, cm, 08/10/22 15:55:00 EDT, Height, 75.6, [...] Refills, Maintenance, 01/11/22 15:35:00 EDT, Tablet, [facility]/pharmacy #[id number], Partial fill upon patient request if the prescription is for a schedule II opioid drug., 152.4, cm, 01/11/22 15:23:00... Start Date: 01/11/22 Status: Ordered FLUoxetine 10 mg oral capsule 10 mg, 1, capsule, By Mouth, Daily, # 90 capsule, Refills 1, Tot. Refills 1, Maintenance, 03/06/23 9:30:00 EDT, Route to Pharmacy Electronically, [facility]/pharmacy #[id number], Partial fill upon patient requestif the [...] 04/26/22 15:42:00 EDT, Route to Pharmacy Electronically, [facility]/pharmacy #[id number], 100 mg tab on backorder, 152.4, cm, 03/30/22 13:46:00 EDT, Height, 73.5, kg, 12/12/21... Start Date: 04/26/22 Stop Date: 04/21/23 Status: Ordered montelukast 10 mg oral tablet 10 mg, 1, tablet, By Mouth, Daily, # 30 tablet, Refills 1, Tot. Refills 1, Maintenance, 03/06/23 9:29:00 EDT, Route to Pharmacy Electronically, [facility]/pharmacy #[id number], Partial fill upon patient request if the prescription is for a schedule II opioid drug.... Start Date: 03/06/23 Stop Date: 05/05/23 Status: Ordered rosuvastatin 20 mg oral tablet 1 tablet, By Mouth, Daily, # 90 tablet, 3 Refills, Maintenance, 01/09/23 9:26:00 EDT, [facility]/pharmacy #[id number], 152.4, cm, 01/09/23 8:53:00 EDT, Height, [...] Team Personnel Name: Bailee Martinez RN Position: [facility] Nurse Member Role: Primary Care Nurse Name: Ijeoma Lim MD Position: [facility] Physician - Primary Care Member Role: PCP Address: Address: [address] [place] [address] Adult & [place] [address]- Care Team Related Persons Name: TAZ BATES Address: home [address] [place] [address]
--- OUTSIDE RECORDS SUMMARY | 2024-02-27 23:34 | XMS_ITS | Continuity of Care Document ---
Author Organization [facility] Address [address] [place] [address]- Care Team Providers Care Behavior Specialist Name Role Phone Raphael WILDER, Ijeoma Toth Primary Care Physician [place] [facility] [place]): 03/16/20 - 03/23/20 [facility] [address] [place] [address] Encounter Diagnosis Hypertension(Discharge Diagnosis) - 03/18/20 BPPV (benign paroxysmal positional vertigo)(Discharge Diagnosis) - 03/18/20 Dyslipidemia(Discharge Diagnosis) - 03/18/20 Attending Physician: Ijeoma Lim MD Allergies, Adverse [...] 13:54:00 EDT, Inhaler, Route to Pharmacy Electronically, [id number], [facility]/pharmacy #[id number], 152, cm, 01/18/20 9:51:00 EDT, Heig... Start Date: 02/12/20 Status: Ordered aspirin 81 mg oral delayed release tablet 81 mg, 1, tablet, By Mouth, Daily, # 30 tablet, Refills 5, Tot. Refills 5, Maintenance, 02/15/20 15:17:00 EDT, Route to Pharmacy Electronically, [facility]/pharmacy #[id number], 152, cm, 01/18/20 9:51:00 EDT, Height, 67.27, kg, 01/26/19 8:44:00 EDT, Dry Weight Start Date: 02/15/20 Status: Ordered chlorthalidone 25 mg oral tablet 25 mg, 1, tablet, By Mouth, Daily, # 30 tablet, Refills 5, Tot. Refills 5, Maintenance, 02/15/20 15:17:00 EDT, Route to Pharmacy Electronically, [facility]/pharmacy #[id number], 152, cm, 01/18/20 9:51:00 EDT, Height, [...] tablet, 3 Refills, Maintenance, 03/03/20 13:39:00 EDT, [facility]/pharmacy #[id number], 152, cm, 02/22/20 12:49:00 EDT, Height, 67.27, kg, 01/26/19 8:44:00 EDT, Dry Weight Start Date: 03/03/20 Status: Ordered losartan 50 mg oral tablet 100 mg, 2, tablet, By Mouth, Daily, # 180 tablet, Refills 3, Tot. Refills 3, Maintenance, 01/21/20 9:57:00 EDT, [id number] tab on [facility]order, 152, cm,01/18/20 9:51:00 EDT, Height, 67.27, kg, 01/26/19 8... Start Date: 01/21/20 Stop Date: 01/15/21 Status: Ordered NIFEdipine 90 mg oral tablet, extended release 90 mg, 1, tablet, By Mouth, Daily, # 30 tablet, Refills 5, Tot. Refills 5, Maintenance, 02/15/20 15:17:00 EDT, Route to Pharmacy Electronically, [facility]/pharmacy #[id number], 152, cm, 01/18/20 9:51:00 EDT, Height, 67.27, kg, 01/26/19 8:44:00 EDT, Dry Weight Start Date: 02/15/20 Stop Date: 08/13/20 Status: Ordered omeprazole 20 mg oral delayed release tablet 1 tablet = 20 mg, By Mouth, Daily, # 60 tablet, 11 Refills, Maintenance, 08/03/19 16:23:53 EDT, EC Tablet, [facility]/pharmacy #[id number], May subsitute capsule as needed by insurance Start Date: 08/03/19 Status: Ordered pravastatin 40 mg oral tablet 1 tablet = 40 mg, By Mouth, Daily, # 30 tablet, 5 Refills, Maintenance, 02/15/20 15:18:00 EDT, Tablet, [facility]/pharmacy #[id number], 152, cm, 01/18/20 9:51:00 EDT, Height, [...] Effective Dates Health Status Clinical Service Informant Hypertension Discharge Diagnosis 03/18/20 BPPV (benign paroxysmal positional vertigo) Discharge Diagnosis 03/18/20 Dyslipidemia Discharge Diagnosis 03/18/20 Vital Signs Most recent to oldest [Reference Range]: 1 Height 152 cm (03/16/20 3:37 PM) Weight 75.1 kg (03/16/20 3:37 PM) Oxygen Saturation [94-100 %] 97 % (03/16/20 3:37 PM) Pulse Rate [55-90 bpm] 80 bpm (03/16/20 3:37 PM) Body Mass Index [18.5-24.99] 32.51 *>HHI* (03/16/20 3:37 PM) Blood Pressure [90-138/55-84 mm Hg] 102/ 62mm Hg (03/16/20 3:37 PM) Blood pressure sites Arm, left (03/16/20 3:37 PM) Weight Obtained Via Standing scale (03/16/20 3:37 PM) Social History Social History Type Response Smoking Status Never smoker; Tobacc o user in household: No entered on: 10/01/17 Sex
--- OUTSIDE RECORDS SUMMARY | 2024-02-27 23:34 | XMS_ITS | Continuity of Care Document ---
Author Organization [facility] Address [address] [place] [address] [address] [place] [address]- Care Team Providers Care Pipe Fitter Welding Name Role Phone Ijeoma Lim MD Primary Care Physician [facility]counter [facility] Date(s): 05/25/22 - 06/24/22 [facility] [address] [place], [place] [address] Attending Physician: Admtr, Ho8 Admitting Physician: [...] 04/26/22 15:42:00 EDT, Route to Pharmacy Electronically, [facility]/pharmacy #[id number], 100 mg tab on backorder, [...] Personnel Name: Raphael WILDER, Ijeoma Toth Address: [address] [place] [address] Adult [facility] [address]
--- OUTSIDE RECORDS SUMMARY | 2024-02-27 23:34 | XMS_ITS | Continuity of Care Document ---
Author Organization [facility] Address [address] [place] [address]- Care Team Providers Care Continuous Improvement Coach Name Role Phone Ijeoma Lim MD Primary Care Physician [facility]counter [facility] Date(s): 04/09/22 - 05/09/22 [facility] [address] [place] [address] Allergies, Adverse Reactions, Alerts Substance Reaction Severity [...] acel(Tdap) 12/27/17 Given 1Result Comment: Done at [employer] 2Result Comment: Done at work Medications aspirin [...] 3 Refills, Maintenance, 01/11/22 15:35:00 EDT, Tablet, [facility]/pharmacy #[id number], Partial fill upon patient request if the prescription is for a schedule II opioid drug., 152.4, cm, 01/11/22 15:23:00... Start Date: 01/11/22 Status: Ordered levothyroxine 0.125 mg oral tablet 0 Refills, Maintenance, 05/09/22 16:28:00 EDT, Partial fill upon patient request if the prescription is for a schedule II opioid drug. Start Date: 05/09/22 Status: Ordered levothyroxine 0.137 mg oral tablet 1 tablet = 137 mcg, By Mouth, Daily, # 30 tablet, 5 Refills, Maintenance, 04/30/22 14:45:00 EDT, Tablet, [facility]/pharmacy #[id number], Please discontinue previous prescription for 125 mcg daily. Thanks, 152.4,cm, 04/30/22 7:49:00 EDT, Height, 73.5, kg, ... Start Date: 04/30/22 Stop Date: 10/27/22 Status: Ordered losartan 50 mg oral tablet 50 mg, 1, tablet, By Mouth, Daily, # 90 tablet, Refills 3, Tot. Refills 3, Maintenance, 04/26/22 15:42:00 EDT, Route to Pharmacy Electronically, [facility]/pharmacy #[id number], 100 mg tab on backorder, 152.4, cm, 03/30/22 13:46:00 EDT, Height, 73.5, kg, 12/12/21... Start Date: 04/26/22 Stop Date: 04/21/23 Status: Ordered rosuvastatin 20 mg oral tablet 1 tablet = 20 mg, By Mouth, Daily, # 90 tablet, 0 Refills, Maintenance, 04/27/22 17:16:00 EDT, [facility]/pharmacy #[id number], familial hyperlipidemia. pravastatin not effective., 152.4, cm, 03/30/22 13:46:00 EDT, Height, 73.5, kg, 12/12/21 9:43:00 EST, Dry Weight Start Date: 04/27/22 Stop Date: 07/26/22 Status: Ordered Vitamin D3 1000 intl units oral capsule 1 capsule = 1,000 International_Units, By Mouth, Daily, # 90 capsule, 3 Refills, Maintenance, 07/12/21 15:00:00 EDT, Capsule, [facility]/pharmacy #[id number], 152.4, cm, 07/12/21 14:27:00 EDT, [...]
--- OUTSIDE RECORDS SUMMARY | 2024-02-27 23:34 | XMS_ITS | Continuity of Care Document ---
Author Organization [facility] Address [address] [place] [address]- Care Team Providers Care Customer Security Clerk Name Role Phone Ijeoma Lim MD Primary Care Physician [facility]counter [facility] Date(s): 06/30/22 - 11/23/22 [facility] [address] [place], [place] [address] Attending Physician: Ijeoma Lim MD Allergies, Adverse [...] acel(Tdap) 12/27/17 Given 1Result Comment: Done at [employer] 2Result Comment: Done at work Medications aspirin [...] 09/24/22 16:52:00 EST, Route to Pharmacy Electronically, [facility]/pharmacy #[id number], Partial fill upon [...] to Pharmacy Electronically, [facility] [id number], 152.4, cm, 08/10/22 15:55:00 EDT, Height, 75.6, [...] tablet, 11 Refills, Maintenance, 11/01/22 13:39:00 EST, [facility]/pharmacy #[id number], Partial fill upon [...] Team Personnel Name: Michelle LIN, Bailee Position: [facility] Nurse Member Role: Primary Care Nurse Name: Raphael WILDER, Ijeoma Toth Position: [facility] Primary Care Physician Member Role: PCP Address: Address: [address] [place] [address] Adult [place] [address]- Care Team Related Persons Name: TAZ BATES Address: home [address] [place] [address]
--- OUTSIDE RECORDS SUMMARY | 2024-02-27 23:34 | XMS_ITS | Continuity of Care Document ---
Author Organization [facility] Address [address] [place] [address]- Care Team Providers Care Masonry Installer Name Role Phone Ijeoma Lim MD Primary Care Physician Encounter [facility] Date(s): 08/10/22 - 08/17/22 [facility] [address] [place], [place] [address] Attending Physician: Ijeoma Lim MD Allergies, [...] acel(Tdap) 12/27/17 Given 1Result Comment: Done at [employer] 2Result Comment: Done at work Medications aspirin [...] 08/13/22 12:20:00 EDT, Route to Pharmacy Electronically, [facility]/pharmacy #[id number], 152.4, cm, 08/10/22 15:55:00 EDT, [...] 3 Refills, Maintenance, 01/11/22 15:35:00 EDT, Tablet, [facility]/pharmacy #[id number], Partial fill upon patient request if the prescription is for a schedule II opioid drug., 152.4, cm, 01/11/22 15:23:00... Start Date: 01/11/22 Status: Ordered levothyroxine 0.137 mg oral tablet See Instructions, 1 tablet By Mouth 6 days per week and 1/2 pill on day 7, # 90 each, 3 Refills, Maintenance, 07/20/22 8:57:00 EDT, Tablet, [facility]/pharmacy #[id number], Partial fill upon patient request if the prescription is for a schedule II opioid drug., 15... Start Date: 07/20/22 Status: Ordered losartan 50 mg oral tablet 50 mg, 1, tablet, By Mouth, Daily, # 90 tablet, Refills 3, Tot. Refills 3, Maintenance, 04/26/22 15:42:00 EDT, Route to Pharmacy Electronically, [facility]/pharmacy #[id number], 100 mg tab on backorder, [...] oldest [Reference Range]: 1 Height 152.4 cm (08/10/22 3:55 PM) Weight 79.8 kg (08/10/22 3:55 PM) Oxygen Saturation [94-100 %] 99 % (08/10/22 3:55 PM) Pulse Rate [55-90 bpm] 72 bpm (08/10/22 3:55 PM) Body Mass Index [18.5-24.99 kg/m2] 34.36 kg/m2 *>HHI* (08/10/22 3:55 PM) Blood Pressure [90-138/55-84 mm Hg] 110/ 72mm Hg (08/10/22 3:55 PM) Mode of Delivery (Oxygen) Room air (08/10/22 3:55 PM) Blood pressure sites Arm, left (08/10/22 3:55 PM) Weight Obtained Via Standing scale (10/21/22 3:55 PM) Social History Social History Type Response Smoking Status Never smoker; Tobacc o user in household: No entered on: 10/01/17 Sex Patient Care team information Personnel Name: Raphael WILDER, Ijeoma Toth Address: Address: [address] [place] [address] Adult & Pediatric [place], [place] [address]
--- OUTSIDE RECORDS SUMMARY | 2024-02-27 23:34 | XMS_ITS | Continuity of Care Document ---
Author Organization [facility] Address [address] [place] [address] [address] [place] [address]- Care Team Providers Care Bottom Worker Name Role Phone Raphael WILDER, Ijeoma Toth Primary Care Physician [phone] Encounter [facility] [place] Date(s): 12/17/22 - 01/16/23 [facility] [address] [place] [address]- Allergies, Adverse Reactions, Alerts Substance Reaction Severity [...] acel(Tdap) 12/27/17 Given 1Result Comment: Done at [employer] 2Result Comment: Done at work Medications aspirin [...] 08/27/22 7:59:00 EST, Route to Pharmacy Electronically, [facility] STORE [id number], 152.4, cm, 08/10/22 15:55:00 EDT, Height, 75.6, [...] 01/09/23 9:29:00 EDT, Route to Pharmacy Electronically, [facility] [...] Team Personnel Name: Michelle LIN, Bailee Position: [facility] Nurse Member Role: Primary Care Nurse Name: Raphael WILDER, Ijeoma Toth Position: [facility] Primary Care Physician Member Role: PCP Address: Address: [address] [place] [address] Adult [place] [address]- Care Team Related Persons Name: BATES TAZ Address: home [address] [place] [address]
--- OUTSIDE RECORDS SUMMARY | 2024-02-27 23:34 | XMS_ITS | Continuity of Care Document ---
Author Organization [facility] Address [address] [place] [address]- Care Team Providers Care Sales Development Coordinator Name Role Phone Raphael WILDER, Ijeoma Toth Primary Care Physician [facility]counter [facility] Date(s): 01/06/23 - 02/05/23 [facility] [address] [place], [place] [address] Allergies, Adverse Reactions, Alerts Substance [...] acel(Tdap) 12/27/17 Given 1Result Comment: Done at [employer] 2Result Comment: Done at work Medications aspirin [...] 09/24/22 16:52:00 EST, [id number] Partial fill upon patient request if the prescription is for a schedule II opi... Start Date: 09/24/22 Status: Ordered chlorthalidone 25 mg oral tablet 25 mg, 1, tablet, By Mouth, Daily, # 90 tablet, Refills 3, Tot. Refills 3, Maintenance, 08/13/22 12:20:00 EDT, Route to Pharmacy Electronically, [facility]/pharmacy #[id number], 152.4, cm, 08/10/22 15:55:00 EDT, Height, 75.6, kg, 05/14/22 7:15:00 EDT, Dry Weight Start Date: 08/13/22 Stop Date: 08/08/23 Status: Ordered cyclobenzaprine 10 mg oral tablet 1, tablet, By Mouth, 3 times a day, # 10 tablet, Refills 1, Maintenance, 08/27/22 7:59:00 EST, Route to Pharmacy Electronically, [facility] 17578, 152.4, cm, 08/10/22 15:55:00 EDT, Height, 75.6, [...] 3 Refills, Maintenance, 01/11/22 15:35:00 EDT, Tablet, [facility]/pharmacy #[id number], Partial fill upon patient request if the prescription is for a schedule II opioid drug., 152.4, cm, 01/11/22 15:23:00... Start Date: 01/11/22 Status: Ordered FLUoxetine 10 mg oral capsule 10 mg, 1, capsule, By Mouth, Daily, # 30 capsule, Refills 1, Tot. Refills 1, Maintenance, 01/09/23 9:29:00 EDT, Route to Pharmacy Electronically, [facility]/pharmacy #[id number], Partial fill upon patient requestif the [...] 04/26/22 15:42:00 EDT, Route to Pharmacy Electronically, [facility]/pharmacy #[id number], 100 mg tab on backorder, 152.4, cm, 03/30/22 13:46:00 EDT, Height, 73.5, kg, 12/12/21... Start Date: 04/26/22 Stop Date: 04/21/23 Status: Ordered rosuvastatin 20 mg oral tablet 1 tablet, By Mouth, Daily, # 90 tablet, 3 Refills, Maintenance, 01/09/23 9:26:00 EDT, [facility]/pharmacy #[id number], 152.4, cm, 01/09/23 8:53:00 EDT, Height, 75.6, kg, 05/14/22 7:15:00 EDT, Dry Weight Start Date: 01/09/23 Status: Ordered Vitamin D3 1000 intl units oral capsule 1 capsule = 1,000 International_Units, By Mouth, Daily, # 90 capsule, 3 Refills, Maintenance, 01/09/23 9:26:00 EDT, Capsule, [facility]/pharmacy #[id number], 152.4, cm, 01/09/23 8:53:00 EDT, Height, [...] Team Personnel Name: Michelle LIN, Bailee Position: [facility] Nurse Member Role: Primary Care Nurse Name: Ijeoma Lim MD Position: [facility] Physician - Primary Care Member Role: PCP Address: Address: [address] [place] [address] Adult [place] [address]- Care Team Related Persons Name: TAZ BATES Address: home [address] [place] [address]
--- OUTSIDE RECORDS SUMMARY | 2024-02-27 23:34 | XMS_ITS | Continuity of Care Document ---
Author Organization [facility] Address [address] [place] [address]- Care Team Providers Care Paleology Professor Name Role Phone Ijeoma Lim MD Primary Care Physician [place] [facility] [place] 05/26/20 - 06/30/20 [place] [address]- [facility] Attending Physician: Ijeoma Lim MD Admitting Physician: [...] 13:54:00 EDT, Inhaler, Route to Pharmacy Electronically, [id number], [facility]/pharmacy #[id number], 152, cm, 01/18/20 9:51:00 EDT, [place]ig... Start Date: 02/12/20 Status: Ordered aspirin 81 mg oral delayed release tablet 81 mg, 1, tablet, By Mouth, Daily, # 30 tablet, Refills 5, Tot. Refills 5, Maintenance, 02/15/20 15:17:00 EDT, [id number], 152, cm, 01/18/20 9:51:00 EDT, Height, 67.27, kg, 01/26/19 8:44:00 EDT, Dry Weight Start Date: 02/15/20 Status: Ordered chlorthalidone 25 mg oral tablet 25 mg, 1, tablet, By Mouth, Daily, # 30 tablet, Refills 5, Tot. Refills 5, Maintenance, 02/15/20 15:17:00 EDT, Route to Pharmacy Electronically, [facility]/pharmacy #[id number], 152, cm, 01/18/20 9:51:00 EDT, Height, [...] tablet, 0 Refills, Maintenance, 05/25/20 9:12:00 EDT, [facility]/pharmacy #[id number], labs needed, 152, cm, 03/16/20 15:37:00 EDT, Height, 67.27, kg, 01/26/19 8:44:00 EDT, Dry Weight Start Date: 05/25/20 Status: Ordered losartan 50 mg oral tablet 100 mg, 2, tablet, By Mouth, Daily, # 180 tablet, Refills 3, Tot. Refills 3, Maintenance, 01/21/20 9:57:00 EDT, [id number] mg tab on backorder, 152, cm,01/18/20 9:51:00 EDT, Height, 67.27, kg, 01/26/19 8... Start Date: 01/21/20 Stop Date: 01/15/21 Status: Ordered NIFEdipine 90 mg oral tablet, extended release 90 mg, 1, tablet, By Mouth, Daily, # 30 tablet, Refills 5, Tot. Refills 5, Maintenance, 02/15/20 15:17:00 EDT, Route to Pharmacy Electronically, [facility]/pharmacy #[id number], 152, cm, 01/18/20 9:51:00 EDT, Height, 67.27, kg, 01/26/19 8:44:00 EDT, Dry Weight Start Date: 02/15/20 Stop Date: 08/13/20 Status: Ordered omeprazole 20 mg oral enteric coated capsule 1 capsule = 20 mg, By Mouth, Daily, # 90 capsule, 3 Refills, Maintenance, 05/26/20 15:26:00 EDT, ECCapsule, [facility]/pharmacy #[id number], 152, cm, 03/16/20 15:37:00 EDT, Height, 67.27, kg, 01/26/19 8:44:00 EDT, Dry Weight Start Date: 05/26/20 Status: Ordered pravastatin 40 mg oral tablet 1 tablet = 40 mg, By Mouth, Daily, # 30 tablet, 5 Refills, Maintenance, 02/15/20 15:18:00 EDT, Tablet, [facility]/pharmacy #[id number], 152, cm, 01/18/20 9:51:00 EDT, Height, 67.27, kg, 01/26/19 8:44:00 EDT, Dry Weight Start Date: 02/15/20 Status: Ordered Vitamin D3 1000 intl units oral capsule 1 capsule = 1,000 International_Units, By Mouth, Daily, # 90 capsule, 3 Refills, Maintenance, 05/25/20 10:43:00 EDT, Capsule, [facility]/pharmacy #[id number], 152, cm, 03/16/20 15:37:00 [...]
--- OUTSIDE RECORDS SUMMARY | 2024-02-27 23:34 | XMS_ITS | Continuity of Care Document ---
Author Organization [facility] Address [address] [place] [address]- Care Team Providers Care Shelter Case Manager Name Role Phone Ijeoma Lim MD Primary Care Physician [phone] Encounter [facility] Date(s): 09/22/23 - 10/22/23 [facility] [address] [place], [place] [address] Allergies, Adverse [...] acel(Tdap) 12/27/17 Given 1Result Comment: Done at [employer] 2Result Comment: Done at work Medications barium sulfate 2% oral suspension See Instructions, dispense 2 bottles 1st bottle 6 hrs before & 2nd bottle [address], # 2each, 0 Refills, Maintenance, 09/13/23 9:28:00 EST, [id number], Partial fill upon patient request if the prescription is for a schedule II opioid... Start Date: 09/13/23 Status: Ordered chlorthalidone 25 mg oral tablet 1, tablet, By Mouth, Daily, # 90 tablet, Refills 1, Maintenance, 08/20/23 0:15:00 EDT, Route to Pharmacy Electronically, [facility], 152, cm, 08/01/23 10:56:00 EDT, Height, 76.8, kg, 05/16/23 10:20:00 EDT, Dry Weight Start Date: 08/20/23 Status: Ordered docusate sodium 100 mg oral capsule 100 mg, 1, capsule, By Mouth, 2 times a day, # 60 capsule, Refills 1, Tot. Refills 1, Maintenance, 09/13/23 9:07:00 EST, [facility] Pharmacy Electronically, [facility], 152, cm, 08/01/23 10:56:00 EDT, Height, 76.8, kg, 05/16/23 10:20:00 EDT, Dry Weight Start Date: 08/24/23 Status: Ordered fluticasone 50 mcg/inh nasal spray 1 sprays, Nares, Both, 2 times a day, # 16 Gm, 0 Refills, Maintenance, 08/01/23 11:21:00 EDT, [place], [facility]/pharmacy #[id number], Partial fill [...] 3 Refills, Maintenance, 10/09/23 16:07:00 EST, ECCapsule, [facility]/pharmacy #[id number], Partial fill [...] Care Member Role: PCP Address: Address: [address] [place] [address] Adult & [place] [address]- Care Team Related Persons Name: TAZ BATES Address: home [address] [place] [address]
--- OUTSIDE RECORDS SUMMARY | 2024-02-27 23:34 | XMS_ITS | Continuity of Care Document ---
Author Organization [facility] Address [address] [place] [address]- Care Team Providers Care Gyroscope Repairer Name Role Phone Raphael WILDER, Ijeoma Toth Primary Care Physician [facility] Date[facility]s): 05/25/20 - 06/24/20 [facility] [address] [place] [address]- [facility] Allergies, Adverse Reactions, Alerts Substance Reaction Severity [...] 13:54:00 EDT, Inhaler, Route to Pharmacy Electronically, [id number], [facility]/pharmacy #[id number], 152, cm, 01/18/20 9:51:00 EDT, Heig... Start Date: 02/12/20 Status: Ordered aspirin 81 mg oral delayed release tablet 81 mg, 1, tablet, By Mouth, Daily, # 30 tablet, Refills 5, Tot. Refills 5, Maintenance, 02/15/20 15:17:00 EDT, Route to Pharmacy Electronically, [facility]/pharmacy #[id number], 152, cm, 01/18/20 9:51:00 EDT, Height, 67.27, kg, 01/26/19 8:44:00 EDT, Dry Weight Start Date: 02/15/20 Status: Ordered chlorthalidone 25 mg oral tablet 25 mg, 1, tablet, By Mouth, Daily, # 30 tablet, Refills 5, Tot. Refills 5, Maintenance, 02/15/20 15:17:00 EDT, [facility], [facility] [...] 5 Refills, Maintenance, 02/15/20 15:18:00 EDT, Tablet, [facility]/pharmacy #0488, 152, cm, 01/18/20 9:51:00 EDT, Height, 67.27, kg, 01/26/19 8:44:00 EDT, Dry Weight Start Date: 02/15/20 Status: Ordered Vitamin D3 1000 intl units oral capsule 1 capsule = 1,000 International_Units, By Mouth, Daily, # 90 capsule, 3 Refills, Maintenance, 05/25/20 10:43:00 EDT, Capsule, [facility]/pharmacy #[id number], 152, cm, [...]
--- OUTSIDE RECORDS SUMMARY | 2024-02-27 23:34 | XMS_ITS | Continuity of Care Document ---
Author Organization [facility] Address [address] [place] [address]- Care Team Providers Care Time Recorder Name Role Phone Dariana Evans MD Primary Care Physician Encounter [facility] Date(s): 11/06/19 - 11/13/[address] [address]- [facility] Attending Physician: Dariana Evans MD Allergies, Adverse Reactions, Alerts Substance Reaction [...] 02/17/19 17:50:07 EDT, Route to Pharmacy Electronically, [id number], [facility]/pharmacy #[id number] Start Date: 02/17/19 Status: Ordered chlorthalidone 25 mg oral tablet 25 mg, 1, tablet, By Mouth, Daily, # 30 tablet, Refills 11, Tot. Refills 11, Maintenance, 02/17/19 17:50:09 EDT, Route to Pharmacy Electronically, [id number], [id number] Start Date: 02/17/19 Status: Ordered [...] 02/17/19 17:50:07 EDT, Route to Pharmacy Electronically, [id number], [facility]/pharmacy #[id number] Start Date: 02/17/19 Stop Date: [...]
--- OUTSIDE RECORDS SUMMARY | 2024-02-27 23:34 | XMS_ITS | Continuity of Care Document ---
Author Organization [facility] Address [address] [place] [address]- Care Team Providers Care Commercial Field Inspector Name Role Phone Ijeoma Lim MD Primary Care Physician Encounter [facility] Date(s): 02/23/21 - 03/25/21 [facility] [address] [place], [place] [address] Allergies, Adverse Reactions, Alerts Substance [...] acel(Tdap) 12/27/17 Given 1Result Comment: Done at [employer] 2Result Comment: Done at work Medications albuterol CFC free 90 mcg/inh inhalation aerosol 2, puffs, Inhalation, Every 6 hours, PRN, # 8.5 Gm, Refills 0, Tot. Refills 0, Maintenance, 02/12/20 13:54:00 EDT, Inhaler, Route to Pharmacy Electronically, [id number], [id number], 152, cm, 01/18/20 9:51:00 EDT, Ruddy Start Date: 02/12/20 Status: Ordered Teodora 0.1 mg/24 hours twice weekly transdermal film, extended release See Instructions, 0.1 mg estradiol patch transdermal, reapply every 72 hours, # 2 patch, 0 Refills,Maintenance, 01/28/21 17:24:00 EDT, [facility]/pharmacy #[id number], Partial fill upon patient request [...] tablet, 1 Refills, Maintenance, 12/20/20 13:28:00 EST, [facility]/pharmacy #[id number], labs needed, 152, cm, 09/14/20 10:51:00 EST, Height, 67.27, kg, 01/26/19 8:44:00 EDT, Dry Weight Start Date: 12/20/20 Status: Ordered losartan 50 mg oral tablet 50 mg, 1, tablet, By Mouth, Daily, # 90 tablet, Refills 1, Tot. Refills 1, Maintenance, 01/26/21 14:32:00 EDT, Route to Pharmacy Electronically, [facility] [...]
--- OUTSIDE RECORDS SUMMARY | 2024-02-27 23:34 | XMS_ITS | Continuity of Care Document ---
Author Organization [facility] Address [address] [place] [address]- Care Team Providers Care Area Counselor Name Role Phone Ijeoma Lim MD Primary Care Physician Encounter [facility] Date(s): 06/28/22 - 07/05/22 [facility] [address] [place], [place] [address] Encounter Diagnosis Hypothyroidism(Discharge Diagnosis) - 06/28/22 Health care maintenance(Discharge Diagnosis) - 06/28/22 Attending Physician: Bella French MD, V Allergies, Adverse Reactions, Alerts Substance Reaction Severity [...] Refills, Maintenance, 01/11/22 15:35:00 EDT, Tablet, [facility]/pharmacy #[id number], Partial fill upon patient request [...] 15:42:00 EDT, Route to Pharmacy Electronically, [facility]/pharmacy #[id number], 100 mg tab on backorder, [...] maintenance(Confirmed) Active PVCs (premature ventricular contractions)(Confirmed) Active Diagnosis Diagnosis Type Effective Dates Health Status Clinical Service Informant Hypothyroidism Discharge Diagnosis 06/28/22 Health care maintenance Discharge Diagnosis 06/28/22 Vital Signs Most recent to oldest [Reference Range]: 1 Height 152.4 cm (06/28/22 4:41 PM) Weight 76.8 kg (06/28/22 4:41 PM) Oxygen Saturation [94-100 %] 98 % (06/28/22 4:41 PM) Pulse Rate [55-90 bpm] 72 bpm (06/28/22 4:41 PM) Body Mass Index [18.5-24.99] 33.07 *>HHI* (06/28/22 4:41 PM) Blood Pressure [90-138/55-84 mm Hg] 136/ 82mm Hg (06/28/22 4:41 PM) Respiratory Rate [16-30 br/min] 16 br/mi n (06/28/22 4:41 PM) Temperature [96.8-100.4 DegF] 98 DegF (06/28/22 4:41 PM) Mode of Delivery (Oxygen) Room air (06/28/22 4:41 PM) Blood pressure sites Arm, left (06/28/22 4:41 PM) Temperature Route Temporal (06/28/22 4:41 PM) Weight Obtained Via Standing scale (06/28/22 4:41 PM) Social History Social History Type Response Smoking Status Never smoker; Tobacc o user in household: No entered on: 10/01/17 Sex Care Team Personnel Name: Raphael WILDER, Ijeoma Toth Address: [address] [place] [address] Adult & Pediatric Med [place], [place] [address]
--- OUTSIDE RECORDS SUMMARY | 2024-02-27 23:34 | XMS_ITS | Continuity of Care Document ---
Author Organization [facility] Address [address] [place] [address]- Care Team Providers Care Yard Caller Name Role Phone Raphael WILDER, Ijeoma Toth Primary Care Physician [facility]counter [facility] Date(s): 05/31/23 - 06/30/23 [facility] [address] [place], [place] [address] Allergies, Adverse Reactions, Alerts [...] acel(Tdap) 12/27/17 Given 1Result Comment: Done at [employer] 2Result Comment: Done at work Medications chlorthalidone [...] 05/06/23 10:17:00 EDT, Route to Pharmacy Electronically, [facility]/pharmacy #[id number], 100 mg tab on backorder, 152.4, cm, 05/06/23 9:42:00 EDT, Height, 75.6, kg, 05/14/22 7... Start Date: 05/06/23 Stop Date: 04/30/24 Status: Ordered montelukast 10 mg oral tablet 10 mg, 1, tablet, By Mouth, Daily, # 90 tablet, Refills 3, Tot. Refills 3, Maintenance, 05/06/23 10:17:00 EDT, Route to Pharmacy Electronically, [facility]/pharmacy #[id number], Partial fill upon patient request if the prescription is for a schedule II opioid drug... Start Date: 05/06/23 Stop Date: 04/30/24 Status: Ordered potassium chloride 20 mEq oral tablet, extended release 1 tablet = 20 mEq, By Mouth, Daily, # 30 tablet, 1 Refills, Maintenance, 05/11/23 22:39:00 EDT, ER Tablet, [facility]/pharmacy #[id number], Partial fill upon [...] 3 Refills, Maintenance, 01/09/23 9:26:00 EDT, Capsule, [facility]/pharmacy #[id number], 152.4, cm, 01/09/23 8:53:00 EDT, Height, [...] Care Member Role: PCP Address: Address: [address] [place] [address] Adult & [place] [address]- Care Team Related Persons Name: TAZ BATES Address: home [address] [place] [id number]
--- OUTSIDE RECORDS SUMMARY | 2024-02-27 23:34 | XMS_ITS | Continuity of Care Document ---
Author Organization [facility] Address [address] [place] [address]- Care Team Providers Care Agency Sales Development Associate Name Role Phone Raphael WILDER, Ijeoma Toth Primary Care Physician Encounter [facility] Date(s): 11/01/22 - 12/01/22 [facility] [address] [place] [address] Allergies, Adverse Reactions, Alerts [...] acel(Tdap) 12/27/17 Given 1Result Comment: Done at [employer] 2Result Comment: Done at work Medications aspirin [...] 09/24/22 16:52:00 EST, [id number] Partial fill upon patient request if the prescription is for a schedule II opi... Start Date: 09/24/22 Status: Ordered chlorthalidone 25 mg oral tablet 25 mg, 1, tablet, By Mouth, Daily, # 90 tablet, Refills 3, Tot. Refills 3, Maintenance, 08/13/22 12:20:00 EDT, Route to Pharmacy Electronically, [facility]/pharmacy #[id number], 152.4, cm, 08/10/22 15:55:00 EDT, Height, 75.6, kg, 05/14/22 7:15:00 EDT, Dry Weight Start Date: 08/13/22 Stop Date: 08/08/23 Status: Ordered cyclobenzaprine 10 mg oral tablet 1, tablet, By Mouth, 3 times a day, # 10 tablet, Refills 1, Maintenance, 08/27/22 7:59:00 EST, Route to Pharmacy Electronically, [facility] STORE [id number], 152.4, cm, 08/10/22 15:55:00 EDT, Height, 75.6, [...] Refills, Maintenance, 01/11/22 15:35:00 EDT, Tablet, [facility]/pharmacy #[id number], Partial fill upon patient request if the prescription is for a schedule II opioid drug., 152.4, cm, 01/11/22 15:23:00... Start Date: 01/11/22 Status: Ordered levothyroxine 150 mcg (0.15 mg) oral tablet 1 tablet = 150 mcg, By Mouth, Daily, # 30 tablet, 11 Refills, Maintenance, 11/01/22 13:39:00 EST, [facility]/pharmacy #[id number], Partial fill upon patient request if the prescription is for a schedule II opioiddrug., 152.4, cm, 08/10/22 15:55:00 EDT, Height, 75... Start Date: 11/01/22 Status: Ordered losartan 50 mg oral tablet 50 mg, 1, tablet, By Mouth, Daily, # 90 tablet, Refills 3, Tot. Refills 3, Maintenance, 04/26/22 15:42:00 EDT, Route to Pharmacy Electronically, [facility]/pharmacy #[id number], 100 mg tab on backorder, 152.4, cm, 03/30/22 13:46:00 EDT, Height, 73.5, kg, 12/12/21... Start Date: 04/26/22 Stop Date: 04/21/23 Status: Ordered rosuvastatin 20 mg oral tablet 1 tablet, By Mouth, Daily, # 90 tablet, 1 Refills, Maintenance, 07/18/22 17:23:00 EDT, [facility]/pharmacy#[id number], 152.4, cm, 06/28/22 16:41:00 EDT, Height, 75.6, kg, 05/14/22 7:15:00 EDT, Dry Weight Start Date: 07/18/22 Status: Ordered Vitamin D3 1000 intl units oral capsule 1 capsule = 1,000 International_Units, By Mouth, Daily, # 90 capsule, 1 Refills, Maintenance, 07/17/22 19:46:00 EDT, Capsule, [facility]/pharmacy #[id number], 152.4, cm, 06/28/22 16:41:00 EDT, [...] Team Personnel Name: Michelle LIN, Bailee Position: [facility] Nurse Member Role: Primary Care Nurse Name: Raphale WILDER, Ijeoma Toth Position: [facility] Primary Care Physician Member Role: PCP Address: Address: [address] [place] [address] Adult [place] [address]- Care Team Related Persons Name: TAZ BATES Address: home [address] [place] [address]
--- OUTSIDE RECORDS SUMMARY | 2024-02-27 23:35 | XMS_ITS | Continuity of Care Document ---
Author Organization [facility] Address [address] [place] [address]- Care Team Providers Care Microbiological Analyst Name Role Phone Ijeoma Lmi MD Primary Care Physician Encounter [facility] Date(s): 12/08/19 - 04/06/20 [facility] [address] [place] [address] [facility] Attending Physician: Rigoberto Brady MD Admitting Physician: Rigoberto Brady MD Referring Physician: Dariana Evans MD Allergies, Adverse Reactions, [...] 13:54:00 EDT, Inhaler, Route to Pharmacy Electronically, [id number], [facility]/pharmacy #[id number], 152, cm, 01/18/20 9:51:00 EDT, Heig... Start Date: 02/12/20 Status: Ordered aspirin 81 mg oral delayed release tablet 81 mg, 1, tablet, By Mouth, Daily, # 30 tablet, Refills 5, Tot. Refills 5, Maintenance, 02/15/20 15:17:00 EDT, [id number] 152, cm, 01/18/20 9:51:00 EDT, Height, 67.27, kg, 01/26/19 8:44:00 EDT, Dry Weight Start Date: 02/15/20 Status: Ordered chlorthalidone 25 mg oral tablet 25 mg, 1, tablet, By Mouth, Daily, # 30 tablet, Refills 5, Tot. Refills 5, Maintenance, 02/15/20 15:17:00 EDT, Route to Pharmacy Electronically, [facility]/pharmacy #[id number], 152, cm, 01/18/20 9:51:00 [...] tablet, 3 Refills, Maintenance, 03/03/20 13:39:00 EDT, [id number], 152, cm, 02/22/20 12:49:00 EDT, Height, 67.27, kg, 01/26/19 8:44:00 EDT, Dry Weight Start Date: 03/03/20 Status: Ordered losartan 50 mg oral tablet 100 mg, 2, tablet, By Mouth, Daily, # 180 tablet, Refills 3, Tot. Refills 3, Maintenance, 01/21/20 9:57:00 EDT, [facility]ically[id number] mg tab on backorder, 152, cm,01/18/20 9:51:00 EDT, Height, 67.27, kg, 01/26/19 8... Start Date: 01/21/20 Stop Date: 01/15/21 Status: Ordered NIFEdipine 90 mg oral tablet, extended release 90 mg, 1, tablet, By Mouth, Daily, # 30 tablet, Refills 5, Tot. Refills 5, Maintenance, 02/15/20 15:17:00 EDT, Route to Pharmacy Electronically, [facility]/pharmacy #[id number], 152, cm, 01/18/20 9:51:00 EDT, Height, 67.27, kg, 01/26/19 8:44:00 EDT, Dry Weight Start Date: 02/15/20 Stop Date: 08/13/20 Status: Ordered omeprazole 20 mg oral delayed release tablet 1 tablet = 20 mg, By Mouth, Daily, # 60 tablet, 11 Refills, Maintenance, 08/03/19 16:23:53 EDT, EC Tablet, [facility]/pharmacy #[id number], May subsitute capsule as needed by insurance Start Date: 08/03/19 Status: Ordered pravastatin 40 mg oral tablet 1 tablet = 40 mg, By Mouth, Daily, # 30 tablet, 5 Refills, Maintenance, 02/15/20 15:18:00 EDT, Tablet, [facility]/pharmacy #[id number], 152, cm, 01/18/20 9:51:00 [...]
--- OUTSIDE RECORDS SUMMARY | 2024-02-27 23:35 | XMS_ITS | Continuity of Care Document ---
Author Organization [facility] Address [address] [place] [address]- Care Team Providers Care High School English Teacher Name Role Phone Raphael WILDER, Ijeoma Toth Primary Care Physician [facility]counter [facility] Date(s): 03/03/23 - 04/02/23 [facility] [address] [place], [place] [address] Allergies, Adverse Reactions, Alerts [...] acel(Tdap) 12/27/17 Given 1Result Comment: Done at [employer] 2Result Comment: Done at work Medications aspirin [...] 16:52:00 EST, Route to Pharmacy Electronically, [facility]/pharmacy #[id number], [...] 04/04/23 15:40:00 EDT, 03/25/23 15:40:00 EDT, Capsule, [facility]/pharmacy #[id number], Partial fill upon patient request... Start [...] 9:30:00 EDT, Route to Pharmacy Electronically, [facility]/pharmacy #[id number], Partial fill upon patient requestif the [...] 15:42:00 EDT, Route to Pharmacy Electronically, [facility]/pharmacy #[id number], 100 mg tab on backorder, 152.4, cm, 03/30/22 13:46:00 EDT, Height, 73.5, kg, 12/12/21... Start Date: 04/26/22 Stop Date: 04/21/23 Status: Ordered montelukast 10 mg oral tablet 10 mg, 1, tablet, By Mouth, Daily, # 30 tablet, Refills 1, Tot. Refills 1, Maintenance, 03/06/23 9:29:00 EDT, Route to Pharmacy Electronically, [facility]/pharmacy [...] Team Personnel Name: Bailee Martinez RN Position: [facility] Nurse Member Role: Primary Care Nurse Name: Ijeoma Lim MD Position: [facility] Physician - Primary Care Member Role: PCP Address: Address: [address] [place] [address] Adult & [place] [address]- Care Team Related Persons Name: TAZ BATES Address: home [address] [place] [address]
--- OUTSIDE RECORDS SUMMARY | 2024-02-27 23:35 | XMS_ITS | Continuity of Care Document ---
Author Organization [facility] Address [address] [place] [address]- Care Team Providers Care Straightener Gun Parts Name Role Phone Raphael WILDER, Ijeoma Toth Primary Care Physician [facility]counter [facility] Date(s): 11/15/22 - 12/15/22 [facility] [address] [place], [place] [address] Allergies, Adverse Reactions, Alerts Substance [...] acel(Tdap) 12/27/17 Given 1Result Comment: Done at [email or web address] 2Result Comment: Done at work Medications aspirin [...] 09/24/22 16:52:00 EST, [facility], [id number], Partial fill upon patient request if the prescription is for a schedule II opi... Start Date: 09/24/22 Status: Ordered chlorthalidone 25 mg oral tablet 25 mg, 1, tablet, By Mouth, Daily, # 90 tablet, Refills 3, Tot. Refills 3, Maintenance, 08/13/22 12:20:00 EDT, Route to Pharmacy Electronically, [facility]/pharmacy #[id number], 152.4, cm, 08/10/22 15:55:00 EDT, Height, 75.6, kg, 05/14/22 7:15:00 EDT, Dry Weight Start Date: 08/13/22 Stop Date: 08/08/23 Status: Ordered cyclobenzaprine 10 mg oral tablet 1, tablet, By Mouth, 3 times a day, # 10 tablet, Refills 1, Maintenance, 08/27/22 7:59:00 EST, Route to Pharmacy Electronically, [facility] STORE [id number], 152.4, cm, 08/10/22 15:55:00 EDT, Height, 75.6, [...] 3 Refills, Maintenance, 01/11/22 15:35:00 EDT, Tablet, [facility]/pharmacy #[id number], Partial fill upon patient request if the prescription is for a schedule II opioid drug., 152.4, cm, 01/11/22 15:23:00... Start Date: 01/11/22 Status: Ordered levothyroxine 150 mcg (0.15 mg) oral tablet 1 tablet = 150 mcg, By Mouth, Daily, # 30 tablet, 11 Refills, Maintenance, 11/01/22 13:39:00 EST, [facility]/pharmacy #[id number], Partial fill upon patient request if the prescription is for a schedule II opioiddrug., 152.4, cm, 08/10/22 15:55:00 EDT, Height, 75... Start Date: 11/01/22 Status: Ordered losartan 50 mg oral tablet 50 mg, 1, tablet, By Mouth, Daily, # 90 tablet, Refills 3, Tot. Refills 3, Maintenance, 04/26/22 15:42:00 EDT, Route to Pharmacy Electronically, [facility]/pharmacy #[id number], 100 mg tab on backorder, 152.4, [...] 1 Refills, Maintenance, 07/17/22 19:46:00 EDT, Capsule, [facility]/pharmacy #[id number], 152.4, cm, 06/28/22 16:41:00 EDT, Height, [...] Team Personnel Name: Michelle LIN, Bailee Position: [facility] Nurse Member Role: Primary Care Nurse Name: Raphael WILDER, Ijeoma Toth Position: [facility] Primary Care Physician Member Role: PCP Address: Address: [address] [place] [address] Adult [place] [address]- [place] Care Team Related Persons Name: TAZ BATES Address: home [address] [place] [address]
--- OUTSIDE RECORDS SUMMARY | 2024-02-27 23:35 | XMS_ITS | Continuity of Care Document ---
Author Organization [facility] Address [address] [place] [address]- Care Team Providers Care Middle School History Teacher Name Role Phone Ijeoma Lim MD Primary Care Physician Encounter [facility] Date(s): 06/27/23 - 07/27/23 [facility] [address] [place], [place] [address] Attending Physician: Gloria Prescott Admitting Physician: AdmGloria fernandez Referring Physician: Admtr, ArChristi Allergies, Adverse Reactions, [...] 12:20:00 EDT, Route to Pharmacy Electronically, [facility]/pharmacy #[id number], 152.4, cm, 08/10/22 15:55:00 [...] Refills, Maintenance, 01/11/22 15:35:00 EDT, Tablet, [facility]/pharmacy #[id number], Partial fill upon patient request if the prescription is for a schedule II opioid drug., 152.4, cm, 01/11/22 15:23:00... Start Date: 01/11/22 Status: Ordered FLUoxetine 10 mg oral capsule 10 mg, 1, capsule, By Mouth, Daily, # 90 capsule, Refills 1, Tot. Refills 1, Maintenance, 03/06/23 9:30:00 EDT, Route to Pharmacy Electronically, [facility]/pharmacy #[id number], Partial fill upon patient [...] 10:17:00 EDT, Route to Pharmacy Electronically, [facility]/pharmacy #[id number], 100 mg tab on backorder, 152.4, cm, 05/06/23 9:42:00 EDT, Height, 75.6, kg, 05/14/22 7... Start Date: 05/06/23 Stop Date: 04/30/24 Status: Ordered montelukast 10 mg oral tablet 10 mg, 1, tablet, By Mouth, Daily, # 90 tablet, Refills 3, Tot. Refills 3, Maintenance, 05/06/23 10:17:00 EDT, Route to Pharmacy Electronically, [facility]/pharmacy #[id number], Partial fill upon patient [...] on: 10/01/17 Sex Laboratory * Event Display: RELIEF DOCKING MASTER Pap Test, Non- Authored Date: Radiology * Event Display: Ultrasound Pelvis, Non- Authored Date: Patient Care team information Care Team Personnel Name: Raphael WILDER, Ijeoma Toth Position: [facility] Physician - Primary Care Member Role: PCP Address: Address: [address] [place] [address] Adult [place] [address]- Care Team Related Persons Name: TAZ BATES Address: home [address] [place] [address]
--- OUTSIDE RECORDS SUMMARY | 2024-02-27 23:35 | XMS_ITS | Continuity of Care Document ---
Author Organization [facility] [address] [place] [address]- Care Team Providers Care Cryptologic Supervisor Name Role Phone Ijeoma Lim MD Primary Care Physician [facility]counter [facility] Date(s): 05/25/22 - 06/24/22 [facility] [address] [place], [place] [address] Attending Physician: AdmGloria fernandez Admitting Physician: AdmtrGloria [...] Maintenance, 01/11/22 15:35:00 EDT, Tablet, [facility]/pharmacy #[id number], Partial fill upon patient request if [...] Route to Pharmacy Electronically, [facility]/pharmacy #[id number], 100 mg tab on backorder, 152.4, [...] Name: Raphael WILDER, Ijeoma Toth Address: [address] [place] [address] Adult & Pediatric [address]
--- OUTSIDE RECORDS SUMMARY | 2024-02-27 23:35 | XMS_ITS | Continuity of Care Document ---
Author Organization [facility] Address [address] [place] [address]- Care Team Providers Care Industrial Fabric Cutter Name Role Phone Raphael WILDER, Ijeoma Toth Primary Care Physician Encounter [facility] Date(s): 03/07/20 - 04/06/20 [facility] [address] [place] [address] [facility] Attending Physician: Gloria Prescott Admitting Physician: Gloria [...] 13:54:00 EDT, Inhaler, Route to Pharmacy Electronically, [id number], [facility]/pharmacy #[id number], 152, cm, 01/18/20 9:51:00 EDT, Heig... Start Date: 02/12/20 Status: Ordered aspirin 81 mg oral delayed release tablet 81 mg, 1, tablet, By Mouth, Daily, # 30 tablet, Refills 5, Tot. Refills 5, Maintenance, 02/15/20 15:17:00 EDT, Route to Pharmacy Electronically, [facility]/pharmacy #[id number], 152, cm, 01/18/20 9:51:00 EDT, Height, 67.27, kg, 01/26/19 8:44:00 EDT, Dry Weight Start Date: 02/15/20 Status: Ordered chlorthalidone 25 mg oral tablet 25 mg, 1, tablet, By Mouth, Daily, # 30 tablet, Refills 5, Tot. Refills 5, Maintenance, 02/15/20 15:17:00 EDT, Route to Pharmacy Electronically, [facility]/pharmacy #[id number], 152, cm, 01/18/20 9:51:00 EDT, [...] tablet, 3 Refills, Maintenance, 03/03/20 13:39:00 EDT, [facility]/pharmacy #[id number], 152, cm, 02/22/20 12:49:00 EDT, Height, 67.27, kg, 01/26/19 8:44:00 EDT, Dry Weight Start Date: 03/03/20 Status: Ordered losartan 50 mg oral tablet 100 mg, 2, tablet, By Mouth, Daily, # 180 tablet, Refills 3, Tot. Refills 3, Maintenance, 01/21/20 9:57:00 EDT, [id number] mg tab on backorder, 152, cm,01/18/20 9:51:00 EDT, Height, 67.27, kg, 01/26/19 8... Start Date: 01/21/20 Stop Date: 01/15/21 Status: Ordered NIFEdipine 90 mg oral tablet, extended release 90 mg, 1, tablet, By Mouth, Daily, # 30 tablet, Refills 5, Tot. Refills 5, Maintenance, 02/15/20 15:17:00 EDT, Route to Pharmacy Electronically, [facility]/pharmacy #[id number], 152, cm, 01/18/20 9:51:00 EDT, Height, 67.27, kg, 01/26/19 8:44:00 EDT, Dry Weight Start Date: 02/15/20 Stop Date: 08/13/20 Status: Ordered omeprazole 20 mg oral delayed release tablet 1 tablet = 20 mg, By Mouth, Daily, # 60 tablet, 11 Refills, Maintenance, 08/03/19 16:23:53 EDT, EC Tablet, [facility]/pharmacy #[id number], May subsitute capsule as needed by insurance Start Date: 08/03/19 Status: Ordered pravastatin 40 mg oral tablet 1 tablet = 40 mg, By Mouth, Daily, # 30 tablet, 5 Refills, Maintenance, 02/15/20 15:18:00 EDT, Tablet, [facility]/pharmacy #[id number], 152, cm, 01/18/20 9:51:00 EDT, [...]
--- OUTSIDE RECORDS SUMMARY | 2024-02-27 23:35 | XMS_ITS | Continuity of Care Document ---
Author Organization [facility] Address [address] [place] [address]- Care Team Providers Care Professor Of Journalism Name Role Phone Ijeoma Lim MD Primary Care Physician Encounter [facility] [place] Date(s): 02/04/23 - 03/06/23 [facility] [address] [place] [address]- Attending Physician: Gloria Prescott Admitting Physician: Gloria [...] acel(Tdap) 12/27/17 Given 1Result Comment: Done at [email or web address] 2Result Comment: Done at work Medications aspirin [...] 09/24/22 16:52:00 EST, [id number] Partial fill upon patient request if the prescription is for a schedule II opi... Start Date: 09/24/22 Status: Ordered chlorthalidone 25 mg oral tablet 25 mg, 1, tablet, By Mouth, Daily, # 90 tablet, Refills 3, Tot. Refills 3, Maintenance, 08/13/22 12:20:00 EDT, Route to Pharmacy Electronically, [facility]/pharmacy #[id number], 152.4, cm, 08/10/22 15:55:00 EDT, Height, 75.6, kg, 05/14/22 7:15:00 EDT, Dry Weight Start Date: 08/13/22 Stop Date: 08/08/23 Status: Ordered cyclobenzaprine 10 mg oral tablet 1, tablet, By Mouth, 3 times a day, # 10 tablet, Refills 1, Maintenance, 08/27/22 7:59:00 EST, Route to Pharmacy Electronically, [id number], 152.4, cm, 08/10/22 15:55:00 EDT, Height, 75.6, [...] 3 Refills, Maintenance, 01/11/22 15:35:00 EDT, Tablet, [facility]/pharmacy #[id number], Partial fill upon patient request [...] 04/26/22 15:42:00 EDT, Route to Pharmacy Electronically, [facility]/pharmacy #[id number], 100 mg tab on backorder, 152.4, cm, 03/30/22 13:46:00 EDT, Height, 73.5, kg, 12/12/21... Start Date: 04/26/22 Stop Date: 04/21/23 Status: Ordered montelukast 10 mg oral tablet 10 mg, 1, tablet, By Mouth, Daily, # 30 tablet, Refills 1, Tot. Refills 1, Maintenance, 03/06/23 9:29:00 EDT, Route to Pharmacy Electronically, [facility]/pharmacy #[id number], Partial fill upon patient request [...] Team Personnel Name: Bailee Martinez RN Position: [facility] AMB Nurse Member Role: Primary Care Nurse Name: Raphael WILDER, Ijeoma Toth Position: [facility] Primary Care Physician Member Role: PCP Address: Address: [address] [place] [address] Adult & [place] [address]- Care Team Related Persons Name: TAZ BATES Address: home [address] [place] [address]
--- OUTSIDE RECORDS SUMMARY | 2024-02-27 23:35 | XMS_ITS | Continuity of Care Document ---
Author Organization [facility] isidoro Address [address] [place] [address] [address] [place] [address]- Care Team Providers Care Cvir Tech Name Role Phone Raphael WILDER, Ijeoma Toth Primary Care Physician Encounter [facility] Date(s): 07/25/21 - 08/24/21 [facility] [address] [place], [place] [address] Allergies, Adverse Reactions, Alerts Substance [...] 15:00:00 EDT, Inhaler, Route to Pharmacy Electronically, [id number], [facility]/pharmacy #[id number], 152.4, cm, 07/12/21 14:27:00 EDT, H... Start Date: 07/12/21 Status: Ordered Teodora 0.1 mg/24 hours twice weekly transdermal film, extended release See Instructions, 0.1 mg estradiol patch transdermal, reapply every 72 hours, # 2 patch, 0 Refills,Maintenance, 01/28/21 17:24:00 EDT, [facility]/pharmacy #[id number], Partial fill upon patient request if the prescription is for a schedule II opioid drug., 152.4,... Start Date: 01/28/21 Status: Ordered chlorthalidone 25 mg oral tablet 25 mg, 1, tablet, By Mouth, Daily, # 90 tablet, Refills 3, Tot. Refills 3, Maintenance, 07/12/21 15:00:00 EDT, Route to Pharmacy Electronically, [facility]/pharmacy #[id number], 152.4, cm, 07/12/21 14:27:00 EDT, Height, 75.9, kg, 05/12/21 16:11:00 EDT, Dry Weight Start Date: 07/12/21 Stop Date: 07/07/22 Status: Ordered levothyroxine 125 mcg (0.125 mg) oral tablet 1 tablet = 125 mcg, By Mouth, Daily, # 30 tablet, 11 Refills, Maintenance, 06/05/21 8:04:00 EDT, Tablet, [facility]/pharmacy #[id number], Partial fill upon patient request if the prescription is for a schedule IIopioid drug., 152.4, cm, 06/05/21 7:52:00 EDT, Heig... Start Date: 06/05/21 Stop Date: 05/31/22 Status: Ordered losartan 50 mg oral tablet 50 mg, 1, tablet, By Mouth, Daily, # 90 tablet, Refills 3, Tot. Refills 3, Maintenance, 07/12/21 15:00:00 EDT, Route to Pharmacy Electronically, [facility]/pharmacy #[id number], 100 mg tab on backorder, 152.4, cm, 07/12/21 14:27:00 EDT, Height, 75.9, kg, 05/12/21... Start Date: 07/12/21 Stop Date: 07/07/22 Status: Ordered omeprazole 20 mg oral enteric coated capsule 1 capsule = 20 mg, By Mouth, Daily, # 90 capsule, 3 Refills, Maintenance, 07/12/21 15:00:00 EDT, ECCapsule, [facility]/pharmacy #[id number], 152.4, cm, 07/12/21 14:27:00 EDT, Height, 75.9, kg, 05/12/21 16:11:00 EDT, Dry Weight Start Date: 07/12/21 Status: Ordered pravastatin 40 mg oral tablet 1 tablet = 40 mg, By Mouth, Daily, # 30 tablet, 5 Refills, Maintenance, 07/26/20 10:27:00 EDT, Tablet, [facility]/pharmacy #[id number], 152, cm, 07/26/20 10:00:00 EDT, Height, 67.27, kg, 01/26/19 8:44:00 EDT, DryWeight Start Date: 07/26/20 Status: Ordered simethicone 80 mg oral tablet, chewable 80 mg, Chew, 5 times a day, PRN, For Gaseous Distention/Discomfort, # 90 tablet, Refills 0, Tot. Refills 0, Maintenance, Other, 05/12/21 16:35:00 EDT, Route to Pharmacy Electronically, [facility]/pharmacy #[id number], Partial fill upon patient request if the presc... Start Date: 05/12/21 Status: Ordered Vitamin D3 1000 intl units oral capsule 1 capsule = 1,000 International_Units, By Mouth, Daily, # 90 capsule, 3 Refills, Maintenance, 07/12/21 15:00:00 EDT, Capsule, [facility]/pharmacy #[id number], 152.4, cm, 07/12/21 14:27:00 [...]
--- OUTSIDE RECORDS SUMMARY | 2024-02-27 23:35 | XMS_ITS | Continuity of Care Document ---
Author Organization [facility] Address [address] [place] [address]- Care Team Providers Care Jailer Name Role Phone Raphael WILDER, Ijeoma Toth Primary Care Physician Encounter [facility] [place] Date(s): 09/26/20 - 10/26/20 [facility] [address] [place] [address]- Attending Physician: Gloria Prescott Admitting Physician: Gloria [...] 13:54:00 EDT, Inhaler, Route to Pharmacy Electronically, [id number], [facility]/pharmacy #[id number], 152, cm, 01/18/20 9:51:00 EDT, Heig... Start Date: 02/12/20 Status: Ordered Aspirin Enteric Coated 81 mg oral delayed release tablet 1 tablet, By Mouth, Daily, # 90 tablet, 3 Refills, Maintenance, 08/19/20 9:23:00 EDT, [id number], 152, cm, 07/26/20 10:00:00 EDT, Height, 67.27, kg, 01/26/19 8:44:00 EDT, Dry Weight Start Date: 08/19/20 Status: Ordered chlorthalidone 25 mg oral tablet 25 mg, 1, tablet, By Mouth, Daily, # 90 tablet, Refills 3, Tot. Refills 3, Maintenance, 07/07/20 14:00:00 EDT, Route to Pharmacy Electronically, [facility]/pharmacy #[id number], 152, cm, 03/16/20 [...] tablet, 0 Refills, Maintenance, 05/25/20 9:12:00 EDT, [facility]/pharmacy #[id number], labs needed, 152, cm, 03/16/20 15:37:00 EDT, Height, 67.27, kg, 01/26/19 8:44:00 EDT, Dry Weight Start Date: 05/25/20 Status: Ordered losartan 50 mg oral tablet 50 mg, 1, tablet, By Mouth, Daily, # 90 tablet, Refills 3, Tot. Refills 3, Maintenance, 01/21/20 9:57:00 EDT, Route to Pharmacy Electronically, [facility]/pharmacy #[id number], 100 mg tab [...]
--- OUTSIDE RECORDS SUMMARY | 2024-02-27 23:35 | XMS_ITS | Continuity of Care Document ---
Author Organization [facility] Address [address] [place] [address]- Care Team Providers Care Culvert Installer Name Role Phone Ijeoma Lim MD Primary Care Physician Encounter [facility] [place] Date(s): 06/25/23 - 07/27/23 [facility] [address] [place], [place] [address] Attending Physician: Norris Calix MD Allergies, Adverse Reactions, Alerts Substance Reaction [...] acel(Tdap) 12/27/17 Given 1Result Comment: Done at [employer] 2Result Comment: Done at work Medications chlorthalidone [...] 03/06/23 9:30:00 EDT, Route to Pharmacy Electronically, [facility]/pharmacy #[id number], Partial fill upon patient requestif the [...] Refills, Maintenance, 05/11/23 22:39:00 EDT, ER Tablet, [facility]/pharmacy #[id number], Partial [...] 3 Refills, Maintenance, 01/09/23 9:26:00 EDT, Capsule, [facility]/pharmacy #[id number], 152.4, cm, 01/09/23 8:53:00 EDT, Height, [...] Primary Care Member Role: PCP Address: Address: [address] [place] [address] Adult & [place] [address]- Care Team Related Persons Name: TAZ BATES Address: home [address] [place] [address]
--- OUTSIDE RECORDS SUMMARY | 2024-02-27 23:35 | XMS_ITS | Continuity of Care Document ---
Author Organization [facility] Address [address] [place] [address]- Care Team Providers Care Clinic Charge Nurse Name Role Phone Raphael WILDER, Ijeoma Toth Primary Care Physician Encounter [facility] Date(s): 05/04/21 - 06/03/21 [facility] [address] [place], [place] [address] Allergies, Adverse Reactions, [...] 13:54:00 EDT, Inhaler, Route to Pharmacy Electronically, [id number], [id number], 152, cm, 01/18/20 9:51:00 EDT, Heig... Start Date: 02/12/20 Status: Ordered Teodora 0.1 mg/24 hours twice weekly transdermal film, extended release See Instructions, 0.1 mg estradiol patch transdermal, reapply every 72 hours, # 2 patch, 0 Refills,Maintenance, 01/28/21 17:24:00 EDT, [id number] Partial fill upon patient request if the prescription is for a schedule II opioid drug., 152.4,... Start Date: 01/28/21 Status: Ordered chlorthalidone 25 mg oral tablet 25 mg, 1, tablet, By Mouth, Daily, # 90 tablet, Refills 3, Tot. Refills 3, Maintenance, 07/07/20 14:00:00 EDT, [facility] Pharm[facility] Electronically, [id number], 152, cm, 03/16/20 15:37:00 EDT, Height, [...] tablet, 1 Refills, Maintenance, 12/20/20 13:28:00 EST, [facility]/pharmacy #[id number], labs needed, 152, cm, 09/14/20 10:51:00 EST, Height, 67.27, kg, 01/26/19 8:44:00 EDT, Dry Weight Start Date: 12/20/20 Status: Ordered losartan 50 mg oral tablet 50 mg, 1, tablet, By Mouth, Daily, # 90 tablet, Refills 1, Tot. Refills 1, Maintenance, 01/26/21 14:32:00 EDT, [facility] to Pharm[facility] Electronically, [id number], 100 mg tab on backorder, 152.4, cm, 01/20/21 12:01:00 EDT, Height, 73.64, kg, 01/20/21... Start Date: 01/26/21 Stop Date: 07/25/21 Status: Ordered omeprazole 20 mg oral enteric coated capsule 1 capsule = 20 mg, By Mouth, Daily, # 90 capsule, 3 Refills, Maintenance, 05/26/20 15:26:00 EDT, ECCapsule, [facility]/pharmacy #[id number], 152, cm, 03/16/20 15:37:00 EDT, Height, 67.27, kg, 01/26/19 8:44:00 EDT, Dry Weight Start Date: 05/26/20 Status: Ordered pravastatin 40 mg oral tablet 1 tablet = 40 mg, By Mouth, Daily, # 30 tablet, 5 Refills, Maintenance, 07/26/20 10:27:00 EDT, Tablet, [facility]/pharmacy #[id number], 152, cm, 07/26/20 10:00:00 EDT, Height, 67.27, kg, 01/26/19 8:44:00 EDT, DryWeight Start Date: 07/26/20 Status: Ordered simethicone 80 mg oral tablet, chewable 80 mg, Chew, 5 times a day, PRN, For Gaseous Distention/Discomfort, # 90 tablet, Refills 0, Tot. Refills 0, Maintenance, Other, 05/12/21 16:35:00 EDT, Route to Pharmacy Electronically, [facility]/pharmacy #[id number], Partial fill upon patient [...]
--- OUTSIDE RECORDS SUMMARY | 2024-02-27 23:35 | XMS_ITS | Continuity of Care Document ---
Author Organization [facility] Address [address] [place] [address]- Care Team Providers Care Bindery Machine Feeder Offbearer Name Role Phone Ijeoma Lim MD Primary Care Physician Encounter [facility] Date(s): 01/26/22 - 02/25/22 [facility] [address] [place], [place] [address] Allergies, Adverse Reactions, Alerts [...] 14:40:00 EST, Route to Pharmacy Electronically, [email or web address], 152.4, cm, 07/12/21 14:27:00 EDT, [...] 5 Refills, Maintenance, 07/26/20 10:27:00 EDT, Tablet, [facility]/pharmacy #[id number], 152, cm, 07/26/20 10:00:00 EDT, Height, [...]
--- OUTSIDE RECORDS SUMMARY | 2024-02-27 23:35 | XMS_ITS | Continuity of Care Document ---
Author Organization [facility] Address [address] [place] [address]- Care Team Providers Care Chief Passenger Ship Steward/Stewardess Name Role Phone Ijeoma Lim MD Primary Care Physician Encounter [facility] Date(s): 12/12/20 - 01/11/21 [facility] [address] [place], [place] [address] Allergies, Adverse Reactions, [...] 13:54:00 EDT, Inhaler, Route to Pharmacy Electronically, [id number], [id number], 152, cm, 01/18/20 9:51:00 EDT, [...] tablet, 1 Refills, Maintenance, 12/20/20 13:28:00 EST, [facility]/pharmacy #[id number], labs needed, 152, cm, 09/14/20 10:51:00 EST, Height, 67.27, kg, 01/26/19 8:44:00 EDT, Dry Weight Start Date: 12/20/20 Status: Ordered losartan 50 mg oral tablet 50 mg, 1, tablet, By Mouth, Daily, # 90 tablet, Refills 3, Tot. Refills 3, Maintenance, 01/21/20 9:57:00 EDT, Route to Pharmacy Electronically, [facility]/pharmacy #[id number], 100 mg tab on backorder, 152, cm, 01/18/20 9:51:00 EDT, Height, 67.27, kg, 01/26/19 8:4... Start Date: 01/21/20 Stop Date: 01/15/21 Status: Ordered omeprazole 20 mg oral enteric coated capsule 1 capsule = 20 mg, By Mouth, Daily, # 90 capsule, 3 Refills, Maintenance, 05/26/20 15:26:00 EDT, ECCapsule, [facility]/pharmacy #[id number], 152, cm, 03/16/20 15:37:00 EDT, Height, 67.27, kg, 01/26/19 8:44:00 EDT, Dry Weight Start Date: 05/26/20 Status: Ordered pravastatin 40 mg oral tablet 1 tablet = 40 mg, By Mouth, Daily, # 30 tablet, 5 Refills, Maintenance, 07/26/20 10:27:00 EDT, Tablet, [facility]/pharmacy #[id number], 152, cm, 10/06/20 10:00:00 EDT, Height, [...]
--- OUTSIDE RECORDS SUMMARY | 2024-02-27 23:35 | XMS_ITS | Continuity of Care Document ---
Author Organization [facility] Address [address] [place] [address]- Care Team Providers Care Electronic Prepress Operator Name Role Phone Ijeoma Lim MD Primary Care Physician [phone] Encounter [facility] Date(s): 04/22/23 - 05/22/23 [facility] [address] [place] [address] Attending Physician: Gloria Prescott Admitting Physician: Gloria Prescott Referring Physician: Gloria Prescott Referring Physician: Monse Valentin Referring Physician: Monse Valentin Allergies, Adverse Reactions, [...] tablet, Refills 0, Tot. Refills 0, Acute 08/05/23 16:48:00 EDT, as needed for pain, 05/08/23 16:48:00 EDT, Route to Pharmacy Electronically, [facility]/pharmacy #[id number], Partial fill upon patient request i... Start Date: 05/08/23 Stop Date: 05/25/23 Status: Ordered chlorthalidone 25 mg oral tablet 25 mg, 1, tablet, By Mouth, Daily, # 90 tablet, Refills 3, Tot. Refills 3, Maintenance, 08/13/22 12:20:00 EDT, Route to Pharmacy Electronically, [facility]/pharmacy #[id number], 152.4, cm, 08/10/22 15:55:00 EDT, Height, [...] Maintenance, 01/11/22 15:35:00 EDT, Tablet, [facility]/pharmacy #[id number], Partial fill upon patient request if the prescription is for a schedule II opioid drug., 152.4, cm, 01/11/22 15:23:00... Start Date: 01/11/22 Status: Ordered FLUoxetine 10 mg oral capsule 10 mg, 1, capsule, By Mouth, Daily, # 90 capsule, Refills 1, Tot. Refills 1, Maintenance, 03/06/23 9:30:00 EDT, Route to Pharmacy Electronically, [facility]/pharmacy #[id number], Partial fill upon patient requestif the [...] Route to Pharmacy Electronically, [facility]/pharmacy #[id number], 100 mg tab on backorder, 152.4, cm, 05/06/23 9:42:00 EDT, Height, 75.6, kg, 05/14/22 7... Start Date: 05/06/23 Stop Date: 04/30/24 Status: Ordered montelukast 10 mg oral tablet 10 mg, 1, tablet, By Mouth, Daily, # 90 tablet, Refills 3, Tot. Refills 3, Maintenance, 05/06/23 10:17:00 EDT, Route to Pharmacy Electronically, [facility]/pharmacy #[id number], Partial fill upon patient request if the prescription is for a schedule II opioid drug... Start Date: 05/06/23 Stop Date: 04/30/24 Status: Ordered potassium chloride 20 mEq oral tablet, extended release 1 tablet = 20 mEq, By Mouth, Daily, # 30 tablet, 1 Refills, Maintenance, 05/11/23 22:39:00 EDT, ER Tablet, [facility]/pharmacy #[id number], Partial fill upon patient request if [...] household: No entered on: 10/01/17 Sex US Neck * Event Display: Ultrasound Neck Authored Date: * Event Display: Ultrasound Neck Authored Date: * Event Display: Ultrasound Neck Authored Date: Patient Care team information Care Team Personnel Name: Bailee Martinez RN Position: [facility] AM[facility] Nurse Member Role: Primary Care Nurse Name: Raphael WILDER, Ijeoma Toth Position: [facility] Physician - Primary Care Member Role: PCP Address: Address: [address] [place] [address] Adult & [place] [address]- [place] Care Team Related Persons Name: TAZ BATES Address: home [address] [place] [address]
--- OUTSIDE RECORDS SUMMARY | 2024-02-27 23:35 | XMS_ITS | Continuity of Care Document ---
Author Organization [facility] Address [address] [place] [address]- Care Team Providers Care Rosin Barrel Filler Name Role Phone Ijeoma Lim MD Primary Care Physician Encounter [facility] Date(s): 02/22/20 - 02/29/20 [facility] [address] [place] [address]- [facility] Encounter Diagnosis Dizziness(Discharge Diagnosis) - 02/22/20 Hypertension(Discharge Diagnosis) - 02/22/20 Attending Physician: Ijeoma Lim MD Allergies, Adverse [...] 13:54:00 EDT, Inhaler, Route to Pharmacy Electronically, [id number], [facility]/pharmacy #[id number], 152, cm, 01/18/20 9:51:00 EDT, Heig... Start Date: 02/12/20 Status: Ordered aspirin 81 mg oral delayed release tablet 81 mg, 1, tablet, By Mouth, Daily, # 30 tablet, Refills 5, Tot. Refills 5, Maintenance, 02/15/20 15:17:00 EDT, Route to Pharmacy Electronically, [facility]/pharmacy #[id number], 152, cm, 01/18/20 9:51:00 EDT, Height, 67.27, kg, 01/26/19 8:44:00 EDT, Dry Weight Start Date: 02/15/20 Status: Ordered chlorthalidone 25 mg oral tablet 25 mg, 1, tablet, By Mouth, Daily, # 30 tablet, Refills 5, Tot. Refills 5, Maintenance, 02/15/20 15:17:00 EDT, Route to Pharmacy Electronically, [facility]/pharmacy #[id number], 152, cm, 01/18/20 9:51:00 [...] Tablet Start Date: 03/30/19 Status: Ordered losartan 50 mg oral tablet 100 mg, 2, tablet, By Mouth, Daily, # 180 tablet, Refills 3, Tot. Refills 3, Maintenance, 01/21/20 9:57:00 EDT, [id number] mg tab on [facility]order, 152, cm,01/18/20 9:51:00 EDT, Height, 67.27, kg, 01/26/19 8... Start Date: 01/21/20 Stop Date: 01/15/21 Status: Ordered meclizine 25 mg oral tablet 1 tablet = 25 mg, By Mouth, 3 times a day, PRN for dizziness, for 14 days, # 42 tablet, 0 Refills, Acute 03/07/20 13:21:00 EDT, 02/22/20 13:21:00 EDT, Tablet, [facility]/pharmacy #[id number], 152, cm, 02/22/20 12:49:00 EDT, Height, 67.27, kg, 01/26/19 8:44:00 EDT,... Start Date: 02/22/20 Stop Date: 03/07/20 Status: Ordered NIFEdipine 90 mg oral tablet, extended release 90 mg, 1, tablet, By Mouth, Daily, # 30 tablet, Refills 5, Tot. Refills 5, Maintenance, 02/15/20 15:17:00 EDT, Route to Pharmacy Electronically, [facility]/pharmacy #[id number], 152, cm, 01/18/20 9:51:00 EDT, Height, 67.27, kg, 01/26/19 8:44:00 EDT, Dry Weight Start Date: 02/15/20 Stop Date: 08/13/20 Status: Ordered omeprazole 20 mg oral delayed release tablet 1 tablet = 20 mg, By Mouth, Daily, # 60 tablet, 11 Refills, Maintenance, 08/03/19 16:23:53 EDT, EC Tablet, [facility]/pharmacy #[id number], May subsitute capsule as needed by insurance Start Date: 08/03/19 Status: Ordered pravastatin 40 mg oral tablet 1 tablet = 40 mg, By Mouth, Daily, # 30 tablet, 5 Refills, Maintenance, 02/15/20 15:18:00 EDT, Tablet, [facility]/pharmacy #[id number], 152, cm, 01/18/20 9:51:00 [...] Dates Health Status Cl inical Service Informant Dizziness Discharge Diagnosis 02/22/20 Hypertension Discharge Diagnosis 02/22/20 Vital Signs Most recent to oldest [Reference Range]: 1 Height 152 cm (02/22/20 12:49 PM) Weight 73.3 kg (02/22/20 12:49 PM) Oxygen Saturation [94-100 %] 98 % (02/22/20 12:49 PM) Pulse Rate [55-90 bpm] 88 bpm (02/22/20 12:49 PM) Body Mass Index [18.5-24.99] 31.73 *>HHI* (02/22/20 12:49 PM) Blood Pressure [90-138/55-84 mm Hg] 120/ 78mm Hg (02/22/20 12:49 PM) Temperature [96.8-100.4 DegF] 99.1 DegF (02/22/20 12:49 PM) Mode of Delivery (Oxygen) Room air (02/22/20 12:49 PM) Blood pressure sites Arm, left (02/22/20 12:49 PM) Temperature Route Oral (02/22/20 12:49 PM) Weight Obtained Via Standing scale (02/22/20 12:49 PM) Social History Social History Type Response Smoking Status Never smoker; Tobacc o user in household: No entered on: 10/01/17 Sex
--- OUTSIDE RECORDS SUMMARY | 2024-02-27 23:35 | XMS_ITS | Continuity of Care Document ---
Author Organization [facility] Address [address] [place] [address]- Care Team Providers Care Greens Keeper Name Role Phone Ijeoma Lim MD Primary Care Physician Encounter [facility] Date(s): 12/11/20 - 01/10/21 [facility] [address] [place], [place] [address] Allergies, Adverse Reactions, Alerts Substance [...] 13:54:00 EDT, Inhaler, Route to Pharmacy Electronically, [id number], [id number], 152, cm, 01/18/20 9:51:00 EDT, [...] tablet, 1 Refills, Maintenance, 12/20/20 13:28:00 EST, [id number], labs needed, 152, cm, 09/14/20 10:51:00 EST, Height, 67.27, kg, 01/26/19 8:44:00 EDT, Dry Weight Start Date: 12/20/20 Status: Ordered losartan 50 mg oral tablet 50 mg, 1, tablet, By Mouth, Daily, # 90 tablet, Refills 3, Tot. Refills 3, Maintenance, 01/21/20 9:57:00 EDT, Route to Pharmacy Electronically, [facility]/pharm[facility] #[id number], 100 mg tab on backorder, 152, cm, 01/18/20 9:51:00 EDT, Height, 67.27, kg, 01/26/19 8:4... Start Date: 01/21/20 Stop Date: 01/15/21 Status: Ordered omeprazole 20 mg oral enteric coated capsule 1 capsule = 20 mg, By Mouth, Daily, # 90 capsule, 3 Refills, Maintenance, 05/26/20 15:26:00 EDT, ECCapsule, [facility]/pharmacy #[id number], 152, cm, 03/16/20 15:37:00 EDT, Height, 67.27, kg, 01/26/19 8:44:00 EDT, Dry Weight Start Date: 05/26/20 Status: Ordered pravastatin 40 mg oral tablet 1 tablet = 40 mg, By Mouth, Daily, # 30 tablet, 5 Refills, Maintenance, 07/26/20 10:27:00 EDT, Tablet, [facility] #[id number], 152, cm, 10/06/20 10:00:00 EDT, [...]
--- OUTSIDE RECORDS SUMMARY | 2024-02-27 23:35 | XMS_ITS | Continuity of Care Document ---
Author Organization [facility] [place] [address] [place] [address]- Care Team Providers Care Supervisor Pipe Joints Name Role Phone Ijeoma Lim MD Primary Care Physician Encounter 01/07/23 - 01/14/23 [facility] [address], [address] [place] [address]- Attending Physician: Ijeoma Lim MD Admitting Physician: [...] 09/24/22 16:52:00 EST, Route to Pharmacy Electronically, [facility]/pharmacy [...] to Pharmacy Electronically, [facility] STORE [id number], 152.4, cm, 08/10/22 15:55:00 EDT, Height, 75.6, [...] each, 11 Refills, Maintenance, 11/01/22 13:39:00 EST, [facility]/pharmacy #[id number], Partial fill upon [...] Exam Date Time Procedure Performing Provider Status 01/07/23 4:54 PM MM Digital Mammo Screening Derrick Cuello; Auth (Verified) Notes: (MM Digital Mammo Screening) Reason For Exam: Z12.31 SCREENING MAMMO FOR BREAST CA RESULT: MM Digital Mammo Screening PROCEDURE: MM Digital Mammo Screening INDICATION: Screening. No known palpable abnormalities. COMPARISON: Prior mammograms dating back to 08/12/2018. TECHNIQUE: Full-field digital CC and MLO 3D tomosynthesis images of both breasts were acquired. Computer-aided detection (CAD) was utilized in the interpretation of this study. DENSITY: The breast tissue is heterogeneously dense, which may obscure masses. FINDINGS: There is suggestion of a partially obscured mass in the right breast at the 12:00 axis about 6.4 cm from the nipple. Spot compression CC and MLO images are recommended for further assessment with ultrasound to follow. No suspicious findings are seen in the left breast. IMPRESSION: Additional imaging recommended. We will recall the patient. RECOMMENDATION: Diagnostic 3D tomosynthesis of the right breast with scheduled ultrasound BI-RADS: 0 (Incomplete - Need Additional Imaging Evaluation. Lay letter mailed to patient WSN: [id number] Ordering Physician: Ijeoma Lim Dictated By: Irlanda Perera MD Dictated Date/Time: 01/08/23 8:40 am Reviewed By: Irlanda Perera MD Signed By: Irlanda Perera MD Signed Date/Time: 01/08/23 8:40 am Transcribed By: [employer] Repairer Date/Time: 01/08/23 8:36 am Birads: Social History Social History Type Response Smoking Status Never smoker; Tobacc o user in household: No entered on: 10/01/17 Sex MG Breast Screening * [facility] , CIS S: TRANSCRIBE Irlanda Perera MD: VERIFY Event Display: Result: Authored Date: [id number] PROCEDURE: MM Digital Mammo Screening INDICATION: Screening. No known palpable abnormalities. COMPARISON: Prior mammograms dating back to 08/12/2018. TECHNIQUE: Full-field digital CC and MLO 3D tomosynthesis images of both breasts were acquired. Computer-aided detection (CAD) was utilized in the interpretation of this study. DENSITY: The breast tissue is heterogeneously dense, which may obscure masses. FINDINGS: There is suggestion of a partially obscured mass in the right breast at the 12:00 axis about 6.4 cm from the nipple. Spot compression CC and MLO images are recommended for further assessment with ultrasound to follow. No suspicious findings are seen in the left breast. IMPRESSION: Additional imaging recommended. We will recall the patient. RECOMMENDATION: Diagnostic 3D tomosynthesis of the right breast with scheduled ultrasound BI-RADS: 0 (Incomplete - Need Additional Imaging Evaluation. Lay letter mailed to patient WSN: [id number] Ordering Physician: Ijeoma Lim Dictated By: Irlanda Perera MD Dictated Date/Time: 01/08/23 8:40 am Reviewed By: Irlanda Perera MD Signed By: Irlanda Perera MD Signed Date/Time: 01/08/23 8:40 am Transcribed By: PHILLIP [employer] Repairer Date/Time: 01/08/23 8:36 am Birads: Patient Care team information Care Team Personnel Name: Bailee Martinez RN Position: [facility] AMB Nurse Member Role: Primary Care Nurse Name: Ijeoma Lim MD Position: [facility] Primary Care Physician Member Role: PCP Address: Address: [address] [place] [address] Adult [place] [address]- Care Team Related Persons Name: JANA TAZ Address: home [address] [place] [address]
--- OUTSIDE RECORDS SUMMARY | 2024-02-27 23:35 | XMS_ITS | Continuity of Care Document ---
Author Organization [facility] Address [address] [place] [address] [address] [place] [address]- Care Team Providers Care Passenger Rate Clerk Name Role Phone Ijeoma Lim MD Primary Care Physician [facility] Date(s): 05/25/22 - 06/01/22 [facility] [address] [place], [place] [address] Attending Physician: Santos Zapata MD [...] acel(Tdap) 12/27/17 Given 1Result Comment: Done at [employer] 2Result Comment: Done at work Medications aspirin [...] Maintenance, 01/11/22 15:35:00 EDT, Tablet, [facility]/pharmacy #[id number], Partial fill upon patient request [...] EDT, Route to Pharmacy Electronically, [facility]/pharmacy #[id number], 100 mg tab on backorder, [...] oldest [Reference Range]: 1 Height 152.4 cm (05/25/22 10:38 AM) Oxygen Saturation [94-100 %] 97 % (05/25/22 10:38 AM) Pulse Rate [55-90 bpm] 88 bpm (05/25/22 10:38 AM) Blood Pressure [90-138/55-84 mm Hg] 134/ 69mm Hg (05/25/22 10:38 AM) Blood pressure sites Arm, left (05/25/22 10:38 AM) Social History Social History Type Response Smoking Status Never smoker; Tobacc o user in household: No entered on: 10/01/17 Sex
--- OUTSIDE RECORDS SUMMARY | 2024-02-27 23:35 | XMS_ITS | Continuity of Care Document ---
Author Organization [facility] Address [address] [place] [address]- Care Team Providers Care Secretary To The Vice President Name Role Phone Ijeoma Lim MD Primary Care Physician Encounter [facility] Date(s): 01/27/21 - 01/28/[address] [address] Discharge Disposition: A-D/C Home Attending Physician: Melchor Sethi MD Admitting Physician: Melchor Sethi MD Referring Physician: Melchor Sethi MD Allergies, Adverse Reactions, Alerts Substance Reaction [...] Given 1Result Comment: Done at work Medications acetaminophen 325 mg oral tablet 975 mg, By Mouth, Every 6 hours, # 50 tablet, Refills 0, Tot. Refills 0, Maintenance, 01/28/21 16:29:00 EDT, Route to Pharmacy Electronically, [facility]/pharmacy #[id number], Partial fill upon patient request ifthe prescription is for a schedule II opioid drug.,... Start Date: 01/28/21 Status: Ordered albuterol CFC free 90 mcg/inh inhalation aerosol 2, puffs, Inhalation, Every 6 hours, PRN, # 8.5 Gm, Refills 0, Tot. Refills 0, Maintenance, 02/12/20 13:54:00 EDT, Inhaler, Route to Pharmacy Electronically, [id number], [facility]/pharmacy #[id number], 152, cm, 01/18/20 9:51:00 EDT, Heig... Start Date: 02/12/20 Status: Ordered Teodora 0.1 mg/24 hours twice weekly transdermal film, extended release See Instructions, 0.1 mg estradiol patch transdermal, reapply every 72 hours, # 2 patch, 0 Refills,Maintenance, 01/28/21 17:24:00 EDT, [facility]/pharmacy #[id number], Partial fill upon patient request if the prescription is for a schedule II opioid drug., 152.4,... Start Date: 01/28/21 Status: Ordered chlorthalidone 25 mg oral tablet 25 mg, 1, tablet, By Mouth, Daily, # 90 tablet, Refills 3, Tot. Refills 3, Maintenance, 07/07/20 14:00:00 EDT, Route to Pharmacy Electronically, [facility]/pharmacy #[id number], 152, cm, 03/16/20 15:37:00 EDT, Height, 67.27, kg, 01/26/19 8:44:00 EDT, Dry Weight Start Date: 07/07/20 Stop Date: 07/02/21 Status: Ordered docusate sodium 100 mg oral capsule 1 capsule = 100 mg, By Mouth, 2 times a day, # 60 capsule, 0 Refills, Maintenance, 01/28/21 16:29:00 EDT, Capsule, [facility]/pharmacy #[id number], Partial fill upon patient request if the prescription is for a schedule II opioid drug., 152.4, cm, 01/28/21 7:42:00... Start Date: 01/28/21 Status: Ordered ferrous sulfate 325 mg oral tablet 1 tablet = 325 mg, By Mouth, Daily, Please take Saturday, Saturday, Saturday, # 90 tablet, 3 Refills, Maintenance, 04/06/19 11:47:50 EDT, Tablet Start Date: 04/06/19 Status: Ordered ibuprofen 800 mg oral tablet 800 mg, 1, tablet, By Mouth, Every 6 hours, # 80 tablet, Refills 1, Tot. Refills 1, Maintenance, 01/28/21 16:30:00 EDT, Route to Pharmacy Electronically, [facility]/pharmacy #[id number], Partial fill upon patientrequest if the prescription is for a schedule II op... Start Date: 01/28/21 Status: Ordered levothyroxine 0.137 mg oral tablet 1 tablet = 137 mcg, By Mouth, Daily, # 90 tablet, 1 Refills, Maintenance, 12/20/20 13:28:00 EST, [facility]/pharmacy #[id number], labs needed, 152, cm, 09/14/20 10:51:00 EST, Height, 67.27, kg, 01/26/19 8:44:00 EDT, Dry Weight Start Date: 12/20/20 Status: Ordered losartan 50 mg oral tablet 50 mg, 1, tablet, By Mouth, Daily, # 90 tablet, Refills 1, Tot. Refills 1, Maintenance, 01/26/21 14:32:00 EDT, Route to Pharmacy Electronically, [facility]/pharmacy #[id number], 100 mg tab on backorder, 152.4, cm, 01/20/21 12:01:00 EDT, Height, 73.64, kg, 01/20/21... Start Date: 01/26/21 Stop Date: 07/25/21 Status: Ordered MiraLax oral powder for reconstitution = 17 Gm, By Mouth, Daily, dissolve in water before taking, # 255 Gm, 1 Refills, Maintenance, 01/28/21 16:30:00 EDT, REC Powder, [facility]/pharmacy #[id number], Partial fill upon patient request if the prescription is for a schedule II opioid drug., 17 Gm By Mouth... Start Date: 01/28/21 Status: Ordered omeprazole 20 mg oral enteric coated capsule 1 capsule = 20 mg, By Mouth, Daily, # 90 capsule, 3 Refills, Maintenance, 05/26/20 15:26:00 EDT, ECCapsule, [facility]/pharmacy #[id number], 152, cm, 03/16/20 15:37:00 EDT, Height, 67.27, kg, 01/26/19 8:44:00 EDT, Dry Weight Start Date: 05/26/20 Status: Ordered oxyCODONE 5 mg oral capsule 1 capsule = 5 mg, By Mouth, Every 6 hours, PRN for pain, # 10 capsule, 0 Refills, Maintenance, 01/28/21 16:29:00 EDT, Capsule, [facility]/pharmacy #[id number], Partial fill upon patient request if the prescription is for a schedule II opioid drug., 152.4, cm, 01/19... Start Date: 01/28/21 Status: Ordered pravastatin 40 mg oral tablet 1 tablet = 40 mg, By Mouth, Daily, # 30 tablet, 5 Refills, Maintenance, 07/26/20 10:27:00 EDT, Tablet, [facility]/pharmacy #[id number], 152, cm, 07/26/20 10:00:00 EDT, Height, 67.27, kg, 01/26/19 8:44:00 EDT, DryWeight Start Date: 07/26/20 Status: Ordered Senna 8.6 mg oral tablet 17.2 mg, 2, tablet, By Mouth, Daily at bedtime, PRN, # 100 tablet, Refills 0, Tot. Refills 0, Maintenance, for constipation, 01/28/21 16:30:00 EDT, Route to Pharmacy Electronically, [facility]/pharmacy #[id number] Tablet, Partial fill upon patient request if the p... Start Date: 01/28/21 Status: Ordered simethicone 80 mg oral tablet, chewable 80 mg, Chew, 5 times a day, PRN, For Gaseous Distention/Discomfort, # 90 tablet, Refills 0, Tot. Refills 0, Maintenance, Other, 01/28/21 16:29:00 EDT, Route to Pharmacy Electronically, [facility]acy [id number], Partial fill upon patient request if the presc... Start Date: 01/28/21 Status: Ordered Toradol Inj 15 mg, Injection, IV Push Slowly, 01/28/21 10:00:00 EDT, Stop date 01/28/21 10:00:00 EDT Start Date: 01/28/21 Stop Date: 01/28/21 Status: Completed Vitamin D3 1000 intl units oral capsule [...] oldest [Reference Range]: 1 2 3 Height 152.40 cm (01/28/21 4:41 PM) 152.40 cm (01/28/21 7:42 AM) 152.40 cm (01/28/21 3:40 AM) Weight 76 kg (01/27/21 6:51 AM) 73.64 kg (01/20/21 12:01 PM) Oxygen Saturation [94-100 %] 100 % (01/28/21 4:41 PM) 100 % (01/28/21 7:42 AM) 99 % (01/28/21 3:40 AM) Pulse Rate [55-90 bpm] 70 bpm (01/28/21 4:41 PM) 69 bpm (01/28/21 7:42 AM) 63 bpm (01/28/21 3:40 AM) Body Mass Index [18.5-24.99] 32.72 *>HHI* (01/27/21 6:51 AM) 31.71 *>HHI* (01/20/21 12:01 PM) Blood Pressure [90-138/55-84 mm Hg] 119/67mm Hg (01/28/21 4:41 PM) 129/68mm Hg (01/28/21 7:42 AM) 112/61mm Hg (01/28/21 3:40 AM) Respiratory Rate [16-30 br/min] 18 br/min (01/28/21 4:41 PM) 16 br/min (01/28/21 10:18 AM) 18 br/min (01/28/21 7:42 AM) Temperature [96.8-100.4 DegF] 98.9 DegF (01/28/21 4:41 PM) 98.0 DegF (01/28/21 7:42 AM) 99.2 DegF (01/28/21 3:40 AM) Liters per Minute 6 L/min (01/27/21 10:30 AM) 6 L/min (01/27/21 10:15 AM) 6 L/min (01/27/21 10:00 AM) Mode of Delivery (Oxygen) Room air (01/28/21 4:41 PM) Room air (01/28/21 7:42 AM) Room air (01/28/21 3:40 AM) Blood pressure sites Arm, right (01/28/21 4:41 PM) Arm, left (01/28/21 7:42 AM) Arm, left (01/28/21 3:40 AM) Temperature Route Oral (01/28/21 4:41 PM) Oral (01/28/21 7:42 AM) Oral (01/28/21 3:40 AM) Dry Weight 73.64 kg (01/20/21 12:01 PM) Weight Obtained Via Standing scale (01/27/21 6:51 AM) Patient/family stated (01/20/21 12:01 PM) Dry Weight Obtained Via Patient/family s tated (01/20/21 12:01 PM) Social History Social History Type Response Smoking Status Never smoker; Tobacc o user in household: No entered on: 10/01/17 Sex
--- OUTSIDE RECORDS SUMMARY | 2024-02-27 23:35 | XMS_ITS | Continuity of Care Document ---
Author Organization [facility] Address [address] [place] [address]- Care Team Providers Care Inclinometer Tester Name Role Phone Raphael WILDER, Ijeoma Toth Primary Care Physician [facility] Date[facility]): 06/01/20 - 07/01/20 [facility] [address] [place] [address]- [facility] Allergies, Adverse Reactions, [...] 13:54:00 EDT, Inhaler, Route to Pharmacy Electronically, [id number], [facility]/pharmacy #[id number], 152, cm, 01/18/20 [...] Refills, Maintenance, 05/26/20 15:26:00 EDT, ECCapsule, [facility]/pharmacy #[id number], 152, cm, 03/16/20 15:37:00 EDT, Height, 67.27, kg, 01/26/19 8:44:00 EDT, Dry Weight Start Date: 05/26/20 Status: Ordered pravastatin 40 mg oral tablet 1 tablet = 40 mg, By Mouth, Daily, # 30 tablet, 5 Refills, Maintenance, 02/15/20 15:18:00 EDT, Tablet, [facility]/pharmacy #[id number], 152, cm, 01/18/20 [...]
--- OUTSIDE RECORDS SUMMARY | 2024-02-27 23:35 | XMS_ITS | Continuity of Care Document ---
Author Organization [facility] Address [address] [place] [address]- Care Team Providers Care Radiographer Mammographer Name Role Phone Raphael WILDER, Ijeoma Toth Primary Care Physician [phone] [facility]counter [facility] Date(s): 10/31/22 - 11/30/22 [facility] [address] [place] [address] Allergies, Adverse Reactions, Alerts Substance [...] acel(Tdap) 12/27/17 Given 1Result Comment: Done at [employer] 2Result Comment: Done at work Medications aspirin [...] 16:52:00 EST, [id number] Partial fill upon patient request if the prescription is for a schedule II opi... Start Date: 09/24/22 Status: Ordered chlorthalidone 25 mg oral tablet 25 mg, 1, tablet, By Mouth, Daily, # 90 tablet, Refills 3, Tot. Refills 3, Maintenance, 08/13/22 12:20:00 EDT, Route to Pharmacy Electronically, [facility]/pharmacy #[id number], 152.4, cm, 08/10/22 15:55:00 EDT, Height, 75.6, kg, 05/14/22 7:15:00 EDT, Dry Weight Start Date: 08/13/22 Stop Date: 08/08/23 Status: Ordered cyclobenzaprine 10 mg oral tablet 1, tablet, By Mouth, 3 times a day, # 10 tablet, Refills 1, Maintenance, 08/27/22 7:59:00 EST, Route to Pharmacy Electronically, [facility] STORE 72549, 152.4, cm, 08/10/22 15:55:00 EDT, Height, 75.6, [...] 3 Refills, Maintenance, 01/11/22 15:35:00 EDT, Tablet, [facility]/pharmacy #[id number], Partial fill upon patient request if the prescription is for a schedule II opioid drug., 152.4, cm, 01/11/22 15:23:00... Start Date: 01/11/22 Status: Ordered levothyroxine 150 mcg (0.15 mg) oral tablet 1 tablet = 150 mcg, By Mouth, Daily, # 30 tablet, 11 Refills, Maintenance, 11/01/22 13:39:00 EST, [facility]/pharmacy #[id number], Partial fill upon patient request if the prescription is for a schedule II opioiddrug., 152.4, cm, 08/10/22 15:55:00 EDT, Height, 75... Start Date: 11/01/22 Status: Ordered losartan 50 mg oral tablet 50 mg, 1, tablet, By Mouth, Daily, # 90 tablet, Refills 3, Tot. Refills 3, Maintenance, 04/26/22 15:42:00 EDT, Route to Pharmacy Electronically, [facility]/pharmacy #[id number], 100 mg tab on backorder, 152.4, cm, 03/30/22 13:46:00 EDT, Height, 73.5, kg, 12/12/21... Start Date: 04/26/22 Stop Date: 04/21/23 Status: Ordered rosuvastatin 20 mg oral tablet 1 tablet, By Mouth, Daily, # 90 tablet, 1 Refills, Maintenance, 07/18/22 17:23:00 EDT, [facility]/pharmacy#[id number], 152.4, cm, 06/28/22 16:41:00 EDT, Height, 75.6, kg, 05/14/22 7:15:00 EDT, Dry Weight Start Date: 07/18/22 Status: Ordered Vitamin D3 1000 intl units oral capsule 1 capsule = 1,000 International_Units, By Mouth, Daily, # 90 capsule, 1 Refills, Maintenance, 07/17/22 19:46:00 EDT, Capsule, [facility]/pharmacy #[id number], 152.4, cm, 06/28/22 16:41:00 EDT, [...] Team Personnel Name: Michelle LIN, Bailee Position: [facility] Nurse Member Role: Primary Care Nurse Name: Raphael WILDER, Ijeoma Toth Position: [facility] Primary Care Physician Member Role: PCP Address: Address: [address] [place] [address] Adult [place] [address]- Care Team Related Persons Name: TAZ BATES Address: home [address] [place] [address]
--- OUTSIDE RECORDS SUMMARY | 2024-02-27 23:35 | XMS_ITS | Continuity of Care Document ---
Author Organization [facility] Address [address] [place] [address]- Care Team Providers Care Service Station Cashier Name Role Phone Ijeoma Lim MD Primary Care Physician [facility] Date[facility]s): 06/18/23 - 07/18/[address] [address] Allergies, Adverse Reactions, Alerts Substance [...] acel(Tdap) 12/27/17 Given 1Result Comment: Done at [employer] 2Result Comment: Done at work Medications chlorthalidone 25 mg oral tablet 25 mg, 1, tablet, By Mouth, Daily, # 90 tablet, Refills 3, Tot. Refills 3, Maintenance, 08/13/22 12:20:00 EDT, Route to Pharmacy Electronically, [facility]/pharmacy #[id number], 152.4, cm, 08/10/22 15:55:00 EDT, Height, [...] to Pharmacy Electronically, [facility]/pharmacy #[id number], Partial fill upon patient request if the prescription is for a schedule II opioid drug... Start Date: 05/06/23 Stop Date: 04/30/24 Status: Ordered potassium chloride 20 mEq oral tablet, extended release 1 tablet = 20 mEq, By Mouth, Daily, # 30 tablet, 1 Refills, Maintenance, 05/11/23 22:39:00 EDT, ER Tablet, [facility]/pharmacy #[id number], Partial fill [...] Maintenance, 01/09/23 9:26:00 EDT, Capsule, [facility]/pharmacy #[id number], 152.4, cm, 01/09/23 8:53:00 EDT, Height, [...] Team Personnel Name: Ijeoma Lim MD Position: [facility] Physician - Primary Care Member Role: PCP Address: Address: [address] [place] [address] Adult [place] [address]- Care Team Related Persons Name: TAZ BATES Address: home [address] [place] [address]
--- OUTSIDE RECORDS SUMMARY | 2024-02-27 23:35 | XMS_ITS | Continuity of Care Document ---
Author Organization [facility] Address [address] [place] [address]- Care Team Providers Care Machine Setter Supervisor Name Role Phone Ijeoma Lim MD Primary Care Physician [facility]s): 04/10/22 - 05/10/22 [facility] [address] [place] [address] Allergies, Adverse Reactions, Alerts [...] acel(Tdap) 12/27/17 Given 1Result Comment: Done at [employer] 2Result Comment: Done at work Medications aspirin [...] Maintenance, 01/11/22 15:35:00 EDT, Tablet, [facility]/pharmacy #[id number], Partial fill upon patient request [...] 5 Refills, Maintenance, 04/30/22 14:45:00 EDT, Tablet, [facility]/pharmacy #[id number], Please discontinue previous prescription for 125 mcg daily. Thanks, 152.4,cm, 04/30/22 7:49:00 EDT, Height, 73.5, kg, ... Start Date: 04/30/22 Stop Date: 10/27/22 Status: Ordered losartan 50 mg oral tablet 50 mg, 1, tablet, By Mouth, Daily, # 90 tablet, Refills 3, Tot. Refills 3, Maintenance, 04/26/22 15:42:00 EDT, Route to Pharmacy Electronically, [facility]/pharmacy #[id number], 100 mg tab on backorder, 152.4, cm, 03/30/22 13:46:00 EDT, Height, 73.5, kg, 12/12/21... Start Date: 04/26/22 Stop Date: 04/21/23 Status: Ordered rosuvastatin 20 mg oral tablet 1 tablet = 20 mg, By Mouth, Daily, # 90 tablet, 0 Refills, Maintenance, 04/27/22 17:16:00 EDT, [facility]/pharmacy #[id number], familial hyperlipidemia. pravastatin not effective., [...]
--- OUTSIDE RECORDS SUMMARY | 2024-02-27 23:35 | XMS_ITS | Continuity of Care Document ---
Author Organization [facility] Address [address] [place] [address]- Care Team Providers Care Orchid Hand Name Role Phone Raphael WILDER, Ijeoma Toth Primary Care Physician [facility]): 05/08/21 - 06/07/21 [facility] [address] [place], [place] [address] Allergies, Adverse Reactions, [...] 13:54:00 EDT, Inhaler, Route to Pharmacy Electronically, [id number], [id number], 152, cm, 01/18/20 9:51:00 EDT, Heig... Start Date: 02/12/20 Status: Ordered Teodora 0.1 mg/24 hours twice weekly transdermal film, extended release See Instructions, 0.1 mg estradiol patch transdermal, reapply every 72 hours, # 2 patch, 0 Refills,Maintenance, 01/28/21 17:24:00 EDT, [facility]/pharmacy #[id number], Partial fill upon patient request if the prescription is for a schedule II opioid drug., 152.4,... Start Date: 01/28/21 Status: Ordered chlorthalidone 25 mg oral tablet 25 mg, 1, tablet, By Mouth, Daily, # 90 tablet, Refills 3, Tot. Refills 3, Maintenance, 07/07/20 14:00:00 EDT, Route to Pharmacy Electronically, [facility]/pharmacy #[id number], 152, cm, 03/16/20 15:37:00 EDT, Height, [...] 11 Refills, Maintenance, 06/05/21 8:04:00 EDT, Tablet, [facility]/pharmacy #[id number], Partial fill upon patient request if the prescription is for a schedule IIopioid drug., 152.4, cm, 06/05/21 7:52:00 EDT, Heig... Start Date: 06/05/21 Stop Date: 05/31/22 Status: Ordered losartan 50 mg oral tablet 50 mg, 1, tablet, By Mouth, Daily, # 90 tablet, Refills 1, Tot. Refills 1, Maintenance, 01/26/21 14:32:00 EDT, Route to Pharmacy Electronically, [facility]/pharmacy #[id number], 100 mg tab on backorder, 152.4, cm, 01/20/21 12:01:00 EDT, Height, 73.64, kg, 01/20/21... Start Date: 01/26/21 Stop Date: 07/25/21 Status: Ordered omeprazole 20 mg oral enteric coated capsule 1 capsule = 20 mg, By Mouth, Daily, # 90 capsule, 3 Refills, Maintenance, 05/26/20 15:26:00 EDT, ECCapsule, [facility]/pharmacy #[id number], 152, cm, 03/16/20 15:37:00 EDT, Height, 67.27, kg, 01/26/19 8:44:00 EDT, Dry Weight Start Date: 05/26/20 Status: Ordered pravastatin 40 mg oral tablet 1 tablet = 40 mg, By Mouth, Daily, # 30 tablet, 5 Refills, Maintenance, 07/26/20 10:27:00 EDT, Tablet, [facility]/pharmacy #[id number], 152, cm, 07/26/20 10:00:00 EDT, Height, 67.27, kg, 01/26/19 8:44:00 EDT, DryWeight Start Date: 07/26/20 Status: Ordered simethicone 80 mg oral tablet, chewable 80 mg, Chew, 5 times a day, PRN, For Gaseous Distention/Discomfort, # 90 tablet, Refills 0, Tot. Refills 0, Maintenance, Other, 05/12/21 16:35:00 EDT, Route to Pharmacy Electronically, [facility]/pharmacy #[id number], Partial fill upon patient [...]
--- OUTSIDE RECORDS SUMMARY | 2024-02-27 23:35 | XMS_ITS | Continuity of Care Document ---
Author Organization [facility] Address [address] [place] [address]- Care Team Providers Care Asset Liability Analyst Name Role Phone Ijeoma Lim MD Primary Care Physician [facility] Date(s): 12/30/23 - 01/29/[address] [address] Allergies, Adverse Reactions, Alerts Substance Reaction [...] acel(Tdap) 12/27/17 Given 1Result Comment: Done at [employer] 2Result Comment: Done at work Medications barium sulfate 2% oral suspension See Instructions, dispense 2 bottles 1st bottle 6 hrs before & 2nd bottle [address], # 2each, 0 Refills, Maintenance, 09/13/23 9:28:00 EST, [facility]/pharmacy #[id number], Partial fill upon patient request if the prescription is for a schedule II opioid... Start Date: 09/13/23 Status: Ordered chlorthalidone 25 mg oral tablet 1, tablet, By Mouth, Daily, # 90 tablet, Refills 1, Maintenance, 08/20/23 0:15:00 EDT, Route to Pharmacy Electronically, [facility], 152, cm, 08/01/23 10:56:00 EDT, Height, 76.8, kg, 05/16/23 10:20:00 EDT, Dry Weight Start Date: 08/20/23 Status: Ordered docusate sodium 100 mg oral capsule 100 mg, 1, capsule, By Mouth, 2 times a day, # 60 capsule, Refills 1, Tot. Refills 1, Maintenance, 09/13/23 9:07:00 EST, Route to Pharmacy Electronically, [facility]/pharmacy #[id number], Partial fill upon patient [...] EDT, Route to Pharmacy Electronically, [facility], 152, cm, 08/01/23 10:56:00 EDT, Height, 76.8, kg, 05/16/23 10:20:00 EDT, Dry Weight Start Date: 08/24/23 Status: Ordered fluticasone 50 mcg/inh nasal spray 1 sprays, Nares, Both, 2 times a day, # 16 Gm, 0 Refills, Maintenance, 08/01/23 11:21:00 EDT, [place], [facility]/pharmacy #[id number], Partial fill upon patient request if the prescription is for a schedule II opioid drug., 1 sprays Nares, Both 2 times a day, 152,... Start Date: 08/01/23 Status: Ordered levothyroxine 0.137 mg oral tablet 1 tablet = 137 mcg, By Mouth, Daily, # 60 tablet, 6 Refills, Maintenance, 09/16/23 19:32:00 EST, Tablet, [facility]/pharmacy #[id number], Partial fill upon patient request if the prescription is for a schedule IIopioid drug., 152, cm, 09/13/23 8:42:00 EST, Height... Start Date: 09/16/23 Stop Date: 11/09/24 Status: Ordered losartan 50 mg oral tablet 50 mg, 1, tablet, By Mouth, Daily, # 90 tablet, Refills 3, Tot. Refills 3, Maintenance, 05/06/23 10:17:00 EDT, Route to Pharmacy Electronically, [facility]/pharmacy #[id number], 100 mg tab on backorder, 152.4, cm, 05/06/23 9:42:00 EDT, Height, 75.6, kg, 05/14/22 7... Start Date: 05/06/23 Stop Date: 04/30/24 Status: Ordered montelukast 10 mg oral tablet 10 mg, 1, tablet, By Mouth, Daily, # 90 tablet, Refills 3, Tot. Refills 3, Maintenance, 05/06/23 10:17:00 EDT, Route to Pharmacy Electronically, [facility]/pharmacy #[id number], Partial fill upon patient request if the prescription is for a schedule II opioid drug... Start Date: 05/06/23 Stop Date: 04/30/24 Status: Ordered omeprazole 40 mg oral enteric coated capsule 1 capsule = 40 mg, By Mouth, Daily, # 90 capsule, 3 Refills, Maintenance, 10/09/23 16:07:00 EST, ECCapsule, [facility]/pharmacy #[id number], Partial fill upon patient request if the prescription is for a schedule II opioid drug., 152, cm, 10/09/23 15:44:00 EST, H... Start Date: 10/09/23 Stop Date: 10/03/24 Status: Ordered rosuvastatin 20 mg oral tablet 1 tablet, By Mouth, Daily, # 90 tablet, 1 Refills, Maintenance, 01/07/24 3:02:00 EDT, [facility]/pharmacy #[id number], 152, cm, 10/09/23 15:44:00 [...] Team Personnel Name: Ijeoma Lim MD Position: [facility] Physician - Primary Care Member Role: PCP Address: Address: [address] [place] [address] Adult [place] [address]- Care Team Related Persons Name: TAZ BATES Address: home [address] [place] [address]
--- OUTSIDE RECORDS SUMMARY | 2024-02-27 23:35 | XMS_ITS | Continuity of Care Document ---
Author Organization [facility] Address [address] [place] [address]- Care Team Providers Care Field Scout Name Role Phone Ijeoma Lim MD Primary Care Physician Encounter [facility] Date(s): 05/08/23 - 06/07/23 [facility] [address] [place] [address] Allergies, Adverse Reactions, Alerts Substance [...] acel(Tdap) 12/27/17 Given 1Result Comment: Done at [employer] 2Result Comment: Done at work Medications chlorthalidone 25 mg oral tablet 25 mg, 1, tablet, By Mouth, Daily, # 90 tablet, Refills 3, Tot. Refills 3, Maintenance, 08/13/22 12:20:00 EDT, Route to Pharmacy Electronically, [facility]/pharmacy #[id number], 152.4, cm, 08/10/22 15:55:00 EDT, [...] 3 Refills, Maintenance, 01/11/22 15:35:00 EDT, Tablet, [facility]/pharmacy #[id number], Partial fill upon patient request if the prescription is for a schedule II opioid drug., 152.4, cm, 01/11/22 15:23:00... Start Date: 01/11/22 Status: Ordered FLUoxetine 10 mg oral capsule 10 mg, 1, capsule, By Mouth, Daily, # 90 capsule, Refills 1, Tot. Refills 1, Maintenance, 03/06/23 9:30:00 EDT, Route to Pharmacy Electronically, [facility]/pharmacy #[id number], Partial fill upon patient requestif [...] 05/06/23 10:17:00 EDT, Route to Pharmacy Electronically, [facility]/pharmacy #[id number], 100 mg tab on backorder, 152.4, cm, 05/06/23 9:42:00 EDT, Height, 75.6, kg, 05/14/22 7... Start Date: 05/06/23 Stop Date: 04/30/24 Status: Ordered montelukast 10 mg oral tablet 10 mg, 1, tablet, By Mouth, Daily, # 90 tablet, Refills 3, Tot. Refills 3, Maintenance, 05/06/23 10:17:00 EDT, Route to Pharmacy Electronically, [facility]/pharmacy #[id number], Partial fill upon patient request if the prescription is for a schedule II opioid drug... Start Date: 05/06/23 Stop Date: 04/30/24 Status: Ordered potassium chloride 20 mEq oral tablet, extended release 1 tablet = 20 mEq, By Mouth, Daily, # 30 tablet, 1 Refills, Maintenance, 05/11/23 22:39:00 EDT, ER Tablet, [facility]/pharmacy #[id number], Partial fill upon patient request [...] 3 Refills, Maintenance, 01/09/23 9:26:00 EDT, Capsule, [facility]/pharmacy #[id number], 152.4, cm, 01/09/23 8:53:00 EDT, [...] Primary Care Member Role: PCP Address: Address: [address] [place] [address] Adult & [place] [address]- Care Team Related Persons Name: TAZ BATES Address: home [address] [place] [address]
--- OUTSIDE RECORDS SUMMARY | 2024-02-27 23:35 | XMS_ITS | Continuity of Care Document ---
Author Organization [facility] Address [address] [place] [address]- Care Team Providers Care Varying Exceptionalities Teacher Name Role Phone Raphael WILDER, Ijeoma Toth Primary Care Physician [phone] Encounter [facility] Date(s): 10/04/22 - 11/03/22 [facility] [address] [place] [address]- Allergies, Adverse Reactions, Alerts Substance Reaction Severity [...] acel(Tdap) 12/27/17 Given 1Result Comment: Done at [employer] 2Result Comment: Done at work Medications aspirin [...] 16:52:00 EST, Route to Pharmacy Electronically, [facility]/pharmacy [...] 7:59:00 EST, Route to Pharmacy Electronically, [facility], 152.4, cm, 08/10/22 15:55:00 EDT, Height, 75.6, [...] 11 Refills, Maintenance, 11/01/22 13:39:00 EST, [facility]/pharmacy #[id number], Partial fill upon patient request if the prescription is for a schedule II opioiddrug., 152.4, cm, 08/10/22 15:55:00 EDT, Height, 75... Start Date: 11/01/22 Status: Ordered losartan 50 mg oral tablet 50 mg, 1, tablet, By Mouth, Daily, # 90 tablet, Refills 3, Tot. Refills 3, Maintenance, 04/26/22 15:42:00 EDT, [facility] Refills, Maintenance, 07/17/22 19:46:00 EDT, Capsule, [facility]/pharmacy #[id number], 152.4, cm, 06/28/22 16:41:00 EDT, Height, [...] Team Personnel Name: Michelle LIN, Bailee Position: [facility] Nurse Member Role: Primary Care Nurse Name: Ijeoma Lim MD Position: [facility] Primary Care Physician Member Role: PCP Address: Address: [address] [place] [address] Adult & [place] [address]- Care Team Related Persons Name: TAZ BATES Address: home [address] [place] [address]
--- OUTSIDE RECORDS SUMMARY | 2024-02-27 23:35 | XMS_ITS | Continuity of Care Document ---
Author Organization [facility] Address [address] [place] [address]- Care Team Providers Care Director Of Event Management Name Role Phone Raphael WILDER, Ijeoma Toth Primary Care Physician [facility] Date[facility]s): 07/18/22 - 08/17/22 [facility] [address] [place] [id number] Allergies, Adverse [...] acel(Tdap) 12/27/17 Given 1Result Comment: Done at [employer] 2Result Comment: Done at work Medications aspirin [...] 08/13/22 12:20:00 EDT, Route to Pharmacy Electronically, [facility]/pharmacy #[id number], 152.4, cm, 08/10/22 15:55:00 [...] Patient Care team information Personnel Name: Raphael IWLDER, Ijeoma Toth Address: Address: [address] [place] [address] Adult & Pediatric [address]
--- OUTSIDE RECORDS SUMMARY | 2024-02-27 23:35 | XMS_ITS | Continuity of Care Document ---
Author Organization [facility] Address [address] [place] [address]- Care Team Providers Care K 9 Handler/ Deputy Name Role Phone Raphael WILDER, Ijeoma Toth Primary Care Physician [facility] Date(s): 03/06/23 - 04/06/23 [facility] [address] [place], [place] [address] Attending Physician: Ijeoma Lim MD Allergies, [...] acel(Tdap) 12/27/17 Given 1Result Comment: Done at [employer] 2Result Comment: Done at work Medications aspirin [...] 09/24/22 16:52:00 EST, Route to Pharmacy Electronically, [facility]/pharmacy #[id number], Partial fill upon patient request [...] 3 Refills, Maintenance, 01/11/22 15:35:00 EDT, Tablet, [facility]/pharmacy #[id number], Partial fill upon patient request if the prescription is for a schedule II opioid drug., 152.4, cm, 01/11/22 15:23:00... Start Date: 01/11/22 Status: Ordered FLUoxetine 10 mg oral capsule 10 mg, 1, capsule, By Mouth, Daily, # 90 capsule, Refills 1, Tot. Refills 1, Maintenance, 03/06/23 9:30:00 EDT, Route to Pharmacy Electronically, [facility]/pharmacy #[id number], Partial fill upon patient requestif the [...] 03/06/23 9:29:00 EDT, Route to Pharmacy Electronically, [facility]/pharmacy #[id number], Partial fill upon patient request [...] Personnel Name: Michelle LIN, Bailee Position: [facility] Nurse Member Role: Primary Care Nurse Name: Raphael WILDER, Ijeoma Toth Position: [facility] Physician - Primary Care Member Role: PCP Address: Address: [address] [place] [address] Adult & [place] [address]- Care Team Related Persons Name: TAZ BATES Address: home [address] [place] [id number]
--- OUTSIDE RECORDS SUMMARY | 2024-02-27 23:36 | XMS_ITS | Continuity of Care Document ---
Author Organization [facility] Address [address] [place] [address]- Care Team Providers Care Color Repairer Name Role Phone Raphael WILDER, Ijeoma Toth Primary Care Physician [facility] Date(s): 03/04/23 - 04/03/23 [facility] [address] [place], [place] [address] Allergies, Adverse Reactions, Alerts [...] acel(Tdap) 12/27/17 Given 1Result Comment: Done at [employer] 2Result Comment: Done at work Medications aspirin [...] 09/24/22 16:52:00 EST, Route to Pharmacy Electronically, [facility]/pharmacy #[id number], Partial fill upon patient request if the prescription is for a schedule II opi... Start Date: 09/24/22 Status: Ordered chlorthalidone 25 mg oral tablet 25 mg, 1, tablet, By Mouth, Daily, # 90 tablet, Refills 3, Tot. Refills 3, Maintenance, 08/13/22 12:20:00 EDT, Route to Pharmacy Electronically, [facility]/pharmacy #[id number], 152.4, cm, 08/10/22 15:55:00 EDT, Height, 75.6, kg, 05/14/22 7:15:00 EDT, Dry Weight Start Date: 08/13/22 Stop Date: 08/08/23 Status: Ordered doxycycline hyclate 100 mg oral capsule 1 capsule = 100 mg, By Mouth, Every 12 hours, for 10 days, may take with food to minimize abdominaldiscomfort, # 20 capsule, 0 Refills, Acute 04/04/23 15:40:00 EDT, 03/25/23 15:40:00 EDT, Capsule, [facility]/pharmacy #[id number], Partial fill upon patient request... [...] Refills, Maintenance, 01/11/22 15:35:00 EDT, Tablet, [facility]/pharmacy #[id number], Partial fill upon patient request if the prescription is for a schedule II opioid drug., 152.4, cm, 01/11/22 15:23:00... Start Date: 01/11/22 Status: Ordered FLUoxetine 10 mg oral capsule 10 mg, 1, capsule, By Mouth, Daily, # 90 capsule, Refills 1, Tot. Refills 1, Maintenance, 03/06/23 9:30:00 EDT, Route to Pharmacy Electronically, [facility]/pharmacy #[id number], Partial fill upon patient requestif [...] 15:42:00 EDT, Route to Pharmacy Electronically, [facility]/pharmacy #[id number], 100 mg tab on backorder, 152.4, cm, 03/30/22 13:46:00 EDT, Height, 73.5, kg, 12/12/21... Start Date: 04/26/22 Stop Date: 04/21/23 Status: Ordered montelukast 10 mg oral tablet 10 mg, 1, tablet, By Mouth, Daily, # 30 tablet, Refills 1, Tot. Refills 1, Maintenance, 03/06/23 9:29:00 EDT, Route to Pharmacy Electronically, [facility]/pharmacy #[id number], Partial fill upon patient request [...] Team Personnel Name: Bailee Martinez RN Position: [facility] AM[facility] Nurse Member Role: Primary Care Nurse Name: Ijeoma Lim MD Position: [facility] Physician - Primary Care Member Role: PCP Address: Address: [address] [place] [address] Adult & [place] [address]- Care Team Related Persons Name: TAZ BATES Address: home [address] [place] [address]
--- OUTSIDE RECORDS SUMMARY | 2024-02-27 23:36 | XMS_ITS | Continuity of Care Document ---
Author Organization [facility] Address [address] [place] [address]- Care Team Providers Care Vamp Liner Name Role Phone Raphael WILDER, Ijeoma Toth Primary Care Physician [phone] [facility]counter [facility] Date(s): 09/12/20 - 10/12/20 [facility] [address] [place] [id number] Allergies, Adverse Reactions, Alerts Substance Reaction Severity [...] 13:54:00 EDT, Inhaler, Route to Pharmacy Electronically, [id number], [facility]/pharmacy #[id number], 152, cm, 01/18/20 9:51:00 EDT, [place]... Start Date: 02/12/20 Status: Ordered Aspirin Enteric Coated 81 mg oral delayed release tablet 1 tablet, By Mouth, Daily, # 90 tablet, 3 Refills, Maintenance, 08/19/20 9:23:00 EDT, [facility], 152, cm, 07/26/20 10:00:00 EDT, Height, 67.27, kg, 01/26/19 8:44:00 EDT, Dry Weight Start Date: 08/19/20 Status: Ordered chlorthalidone 25 mg oral tablet 25 mg, 1, tablet, By Mouth, Daily, # 90 tablet, Refills 3, Tot. Refills 3, Maintenance, 07/07/20 14:00:00 EDT, Route to Pharmacy Electronically, [facility]/pharmacy #[id number], 152, cm, 03/16/20 15:37:00 EDT, Height, [...] 0 Refills, Maintenance, 05/25/20 9:12:00 EDT, [facility]/pharmacy #[id number], labs needed, 152, cm, 03/16/20 15:37:00 EDT, Height, 67.27, kg, 01/26/19 8:44:00 EDT, Dry Weight Start Date: 05/25/20 Status: Ordered losartan 50 mg oral tablet 50 mg, 1, tablet, By Mouth, Daily, # 90 tablet, Refills 3, Tot. Refills 3, Maintenance, 01/21/20 9:57:00 EDT, Route to Pharmacy Electronically, [facility]/pharmacy #[id number], 100 mg tab on backorder, 152, [...]
--- OUTSIDE RECORDS SUMMARY | 2024-02-27 23:36 | XMS_ITS | Continuity of Care Document ---
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 Refills 3, Maintenance, 08/13/22 12:20:00 EDT, Route to Pharmacy Electronically, [facility]/pharmacy #[id number], 152.4, cm, 08/10/22 15:55:00 EDT, Height, [...] 03/06/23 9:30:00 EDT, Route to Pharmacy Electronically, [facility]/pharmacy #[id number], Partial fill upon patient requestif the [...] Refills, Maintenance, 05/11/23 22:39:00 EDT, ER Tablet, [facility]/pharmacy #[id number], Partial [...] Refills, Maintenance, 01/09/23 9:26:00 EDT, Capsule, [facility]/pharmacy #[id number], 152.4, cm, 01/09/23 8:53:00 EDT, Height, [...] Personnel Name: Raphael WILDER, Ijeoma Toth Position: [facility] Physician - Primary Care Member Role: PCP Address: Address: [address] [place] [address] Adult [place] [address]- Care Team Related Persons Name: TAZ BATES Address: home [address] [place] [address]
--- OUTSIDE RECORDS SUMMARY | 2024-02-27 23:36 | XMS_ITS | Continuity of Care Document ---
Author Organization [facility] Address [address] [place] [address]- Care Team Providers Care Metal Roaster Name Role Phone Raphael WILDER, Ijeoma Toth Primary Care Physician [facility] Date(s): 10/13/20 - 11/12/20 [facility] [address] [place] [id number] Allergies, Adverse Reactions, Alerts Substance [...] 13:54:00 EDT, Inhaler, Route to Pharmacy Electronically, [id number], [facility]/pharmacy #[id number], 152, cm, 01/18/20 9:51:00 EDT, Heig... Start Date: 02/12/20 Status: Ordered Aspirin Enteric Coated 81 mg oral delayed release tablet 1 tablet, By Mouth, Daily, # 90 tablet, 3 Refills, Maintenance, 08/19/20 9:23:00 EDT, [facility], 152, cm, 07/26/20 10:00:00 EDT, Height, 67.27, kg, 01/26/19 8:44:00 EDT, Dry Weight Start Date: 08/19/20 Status: Ordered chlorthalidone 25 mg oral tablet 25 mg, 1, tablet, By Mouth, Daily, # 90 tablet, Refills 3, Tot. Refills 3, Maintenance, 07/07/20 14:00:00 EDT, Route to Pharmacy Electronically, [facility]/pharmacy #[id number], 152, cm, 03/16/20 15:37:00 EDT, [...] tablet, 0 Refills, Maintenance, 05/25/20 9:12:00 EDT, [facility]/pharmacy #[id number], labs needed, 152, cm, 03/16/20 15:37:00 EDT, Height, 67.27, kg, 01/26/19 8:44:00 EDT, Dry Weight Start Date: 05/25/20 Status: Ordered losartan 50 mg oral tablet 50 mg, 1, tablet, By Mouth, Daily, # 90 tablet, Refills 3, Tot. Refills 3, Maintenance, 01/21/20 9:57:00 EDT, Route to Pharmacy Electronically, [facility] [...]
--- OUTSIDE RECORDS SUMMARY | 2024-02-27 23:36 | XMS_ITS | Continuity of Care Document ---
Author Organization [facility] Address [address] [place] [address]- Care Team Providers Care [employer] Caretaker Name Role Phone Ijeoma Lim MD Primary Care Physician [phone] [facility] [facility] Date(s): 06/06/22 - 07/06/22 [facility] [address] [place] [address]- [place] Allergies, Adverse Reactions, Alerts Substance Reaction [...] acel(Tdap) 12/27/17 Given 1Result Comment: Done at [employer] 2Result Comment: Done at work Medications aspirin [...] 3 Refills, Maintenance, 01/11/22 15:35:00 EDT, Tablet, [facility]/pharmacy #[id number], Partial fill [...] 04/26/22 15:42:00 EDT, Route to Pharmacy Electronically, [facility]/pharmacy #[id number], 100 mg tab on backorder, 152.4, cm, 03/30/22 13:46:00 EDT, Height, 73.5, kg, 12/12/21... Start Date: 04/26/22 Stop Date: 04/21/23 Status: Ordered rosuvastatin 20 mg oral tablet 1 tablet = 20 mg, By Mouth, Daily, # 90 tablet, 0 Refills, Maintenance, 04/27/22 17:16:00 EDT, [facility]/pharmacy #[id number], familial hyperlipidemia. pravastatin not effective., 152.4, [...] Team Personnel Name: Ijeoma Lim MD Address: [address] [place] [address] Adult & Pediatric [address]
--- OUTSIDE RECORDS SUMMARY | 2024-02-27 23:36 | XMS_ITS | Continuity of Care Document ---
Author Organization [facility] Address [address] [place] [address]- Care Team Providers Care Community Living Coach Name Role Phone Raphael WILDER, Ijeoma Toth Primary Care Physician [facility] Date(s): 05/01/21 - 05/31/21 [facility] [address] [place], [place] [address] Allergies, Adverse Reactions, Alerts Substance [...] 13:54:00 EDT, Inhaler, Route to Pharmacy Electronically, [id number], [id number], 152, cm, 03/30/20 9:51:00 EDT, Heig... Start Date: 02/12/20 Status: Ordered Teodora 0.1 mg/24 hours twice weekly transdermal film, extended release See Instructions, 0.1 mg estradiol patch transdermal, reapply every 72 hours, # 2 patch, 0 Refills,Maintenance, 01/28/21 17:24:00 EDT, [id number] Partial fill upon patient request if the prescription is for a schedule II opioid drug., 152.4,... Start Date: 01/28/21 Status: Ordered chlorthalidone 25 mg oral tablet 25 mg, 1, tablet, By Mouth, Daily, # 90 tablet, Refills 3, Tot. Refills 3, Maintenance, 07/07/20 14:00:00 EDT, Route to Pharmacy Electronically, [facility]/pharmacy #[id number], 152, cm, 03/16/20 15:37:00 [...] tablet, 1 Refills, Maintenance, 12/20/20 13:28:00 EST, [facility]/pharmacy #[id number], labs needed, 152, cm, 09/14/20 10:51:00 EST, Height, 67.27, kg, 01/26/19 8:44:00 EDT, Dry Weight Start Date: 12/20/20 Status: Ordered losartan 50 mg oral tablet 50 mg, 1, tablet, By Mouth, Daily, # 90 tablet, Refills 1, Tot. Refills 1, Maintenance, 01/26/21 14:32:00 EDT, Route to Pharmacy Electronically, [facility]/pharmacy #[id number], 100 mg tab on backorder, 152.4, cm, 01/20/21 12:01:00 EDT, Height, 73.64, kg, 01/20/21... Start Date: 01/26/21 Stop Date: 07/25/21 Status: Ordered omeprazole 20 mg oral enteric coated capsule 1 capsule = 20 mg, By Mouth, Daily, # 90 capsule, 3 Refills, Maintenance, 05/26/20 15:26:00 EDT, ECCapsule, [facility]/pharmacy #[id number], 152, cm, 03/16/20 15:37:00 EDT, Height, 67.27, kg, 01/26/19 8:44:00 EDT, Dry Weight Start Date: 05/26/20 Status: Ordered pravastatin 40 mg oral tablet 1 tablet = 40 mg, By Mouth, Daily, # 30 tablet, 5 Refills, Maintenance, 07/26/20 10:27:00 EDT, Tablet, [facility]/pharmacy #[id number], 152, cm, 07/26/20 10:00:00 [...] 3 Refills, Maintenance, 05/25/20 10:43:00 EDT, Capsule, [facility]/pharmacy #[id number], 152, cm, 03/16/20 15:37:00 [...]
--- OUTSIDE RECORDS SUMMARY | 2024-02-27 23:36 | XMS_ITS | Continuity of Care Document ---
Author Organization [facility] Address [address] [place] [address]- Care Team Providers Care Job Change Crew Member Name Role Phone Ijeoma Lim MD Primary Care Physician [place] [facility] [place] 02/03/24 - 02/10/24 [facility] [address] [place], [place] [address] Attending Physician: David Melgoza MD Allergies, Adverse Reactions, Alerts Substance Reaction [...] acel(Tdap) 12/27/17 Given 1Result Comment: Done at [employer] 2Result Comment: Done at work Medications chlorthalidone 25 mg oral tablet 1, tablet, By Mouth, Daily, # 90 tablet, Refills 1, Maintenance, 08/20/23 0:15:00 EDT, Route to Pharmacy Electronically, [id number], 152, cm, 08/01/23 10:56:00 EDT, Height, 76.8, kg, 05/16/23 10:20:00 EDT, Dry Weight Start Date: 08/20/23 Status: Ordered diclofenac 1% topical gel 1 application, Topically, 4 times a day, # 100 Gm, 0 Refills, Maintenance, 02/03/24 14:39:00 EDT, Gel, [facility]/pharmacy #[id number], Partial fill upon patient request if the prescription is for a schedule II opioid drug., 152, cm, 02/03/24 14:10:00 EDT, Height,... Start Date: 02/03/24 Status: Ordered docusate sodium 100 mg oral capsule 100 mg, 1, capsule, By Mouth, 2 times a day, # 60 capsule, Refills 1, Tot. Refills 1, Maintenance, 09/13/23 9:07:00 EST, Route to Pharmacy Electronically, [facility]/pharmacy #[id number], Partial fill upon patient request [...] 08/24/23 9:01:00 EDT, Route to Pharmacy Electronically, [id number], 152, cm, 08/01/23 10:56:00 EDT, Height, 76.8, kg, 05/16/23 10:20:00 EDT, Dry Weight Start Date: 08/24/23 Status: Ordered fluticasone 50 mcg/inh nasal spray 1 sprays, Nares, Both, 2 times a day, # 16 Gm, 0 Refills, Maintenance, 08/01/23 11:21:00 EDT, [place], [facility]/pharmacy #[id number], Partial fill upon patient request if the prescription is for a schedule II opioid drug., 1 sprays Nares, Both 2 times a day, 152,... Start Date: 08/01/23 Status: Ordered levothyroxine 0.137 mg oral tablet 1 tablet = 137 mcg, By Mouth, Daily, # 60 tablet, 6 Refills, Maintenance, 09/16/23 19:32:00 EST, Tablet, [facility]/pharmacy #[id number], Partial fill upon patient request if the prescription is for a schedule IIopioid drug., 152, cm, 09/13/23 8:42:00 EST, Height... Start Date: 09/16/23 Stop Date: 11/09/24 Status: Ordered losartan 50 mg oral tablet 50 mg, 1, tablet, By Mouth, Daily, # 90 tablet, Refills 3, Tot. Refills 3, Maintenance, 05/06/23 10:17:00 EDT, Route to Pharmacy Electronically, [facility]/pharmacy #[id number], 100 mg tab on backorder, 152.4, cm, 05/06/23 9:42:00 EDT, Height, 75.6, kg, 05/14/22 7... Start Date: 05/06/23 Stop Date: 04/30/24 Status: Ordered montelukast 10 mg oral tablet 10 mg, 1, tablet, By Mouth, Daily, # 90 tablet, Refills 3, Tot. Refills 3, Maintenance, 05/06/23 10:17:00 EDT, Route to Pharmacy Electronically, [facility]/pharmacy #[id number], Partial fill upon patient request if the prescription is for a schedule II opioid drug... Start Date: 05/06/23 Stop Date: 04/30/24 Status: Ordered omeprazole 40 mg oral enteric coated capsule 1 capsule = 40 mg, By Mouth, Daily, # 90 capsule, 3 Refills, Maintenance, 10/09/23 16:07:00 EST, ECCapsule, [facility]/pharmacy #[id number], Partial fill upon patient request if the prescription is for a schedule II opioid drug., 152, cm, 10/09/23 15:44:00 EST, H... Start Date: 10/09/23 Stop Date: 10/03/24 Status: Ordered rosuvastatin 20 mg oral tablet 1 tablet, By Mouth, Daily, # 90 tablet, 1 Refills, Maintenance, 01/07/24 3:02:00 EDT, [facility]/pharmacy #[id number], 152, cm, 10/09/23 15:44:00 EST, [...] oldest [Reference Range]: 1 Height 152 cm (02/03/24 2:10 PM) Weight 76.4 kg (02/03/24 2:10 PM) Oxygen Saturation [94-100 %] 84 % *L* (02/03/24 2:10 PM) Pulse Rate [55-90 bpm] 84 bpm (02/03/24 2:10 PM) Body Mass Index [18.5-24.99 kg/m2] 33.07 kg/m2 *>HHI* (02/03/24 2:10 PM) Blood Pressure [90-138/55-84 mm Hg] 129/ 81mm Hg (02/03/24 2:10 PM) Mode of Delivery (Oxygen) Room air (02/03/24 2:10 PM) Weight Obtained Via Standing scale (02/03/24 2:10 PM) Social History Social History Type Response Smoking Status Never smoker; Tobacc o user in household: No entered on: 10/01/17 Sex Patient Care team information Care Team Personnel Name: Raphael WILDER, Ijeoma Toth Position: [facility] Physician - Primary Care Member Role: PCP Address: Address: [address] [place] [address] Adult [place] [address]- Care Team Related Persons Name: TAZ BATES Address: home [address] [place] [address]
--- OUTSIDE RECORDS SUMMARY | 2024-02-27 23:36 | XMS_ITS | Continuity of Care Document ---
Author Organization [facility] Address [address] [place] [address]- Care Team Providers Care Certified Tumor Registrar Name Role Phone Ijeoma Lim MD Primary Care Physician Encounter [facility] [place] Date(s): 06/12/23 - 07/12/23 [facility] [address] [place] [address] Allergies, Adverse Reactions, Alerts Substance [...] acel(Tdap) 12/27/17 Given 1Result Comment: Done at [employer] 2Result Comment: Done at work Medications chlorthalidone [...] 05/06/23 10:17:00 EDT, Route to Pharmacy Electronically, [facility]/pharmacy #[id number], 100 mg tab on backorder, 152.4, cm, 05/06/23 9:42:00 EDT, Height, 75.6, kg, 05/14/22 7... Start Date: 05/06/23 Stop Date: 04/30/24 Status: Ordered montelukast 10 mg oral tablet 10 mg, 1, tablet, By Mouth, Daily, # 90 tablet, Refills 3, Tot. Refills 3, Maintenance, 05/06/23 10:17:00 EDT, Route to Pharmacy Electronically, [facility]/pharmacy #[id number], Partial fill upon patient request if the prescription is for a schedule II opioid drug... Start Date: 05/06/23 Stop Date: 04/30/24 Status: Ordered potassium chloride 20 mEq oral tablet, extended release 1 tablet = 20 mEq, By Mouth, Daily, # 30 tablet, 1 Refills, Maintenance, 05/11/23 22:39:00 EDT, ER Tablet, [facility]/pharmacy #[id number], Partial [...] 3 Refills, Maintenance, 01/09/23 9:26:00 EDT, Capsule, [facility]/pharmacy #[id number], 152.4, cm, 01/09/23 8:53:00 EDT, [...] Personnel Name: Raphael WILDER, Ijeoma Toth Position: [facility] Physician - Primary Care Member Role: PCP Address: Address: [address] [place] [address] Adult & [place] [address]- Care Team Related Persons Name: TAZ BATES Address: home [address] [place] [address]
--- OUTSIDE RECORDS SUMMARY | 2024-02-27 23:36 | XMS_ITS | Continuity of Care Document ---
Author Organization [facility] Address [address] [place] [address]- Care Team Providers Care Welding Machine Operator Electron Beam Name Role Phone Ijeoma Lim MD Primary Care Physician Encounter [facility] [place] Date(s): 05/31/20 - 06/30/20 [place] [address]- [facility] Attending Physician: AdmGloria fernandez Admitting Physician: AdmtrGloria [...] 13:54:00 EDT, Inhaler, Route to Pharmacy Electronically, [id number], [facility]/pharmacy #[id number], 152, cm, 01/18/20 9:51:00 EDT, [...] 02/15/20 15:17:00 EDT, Route to Pharmacy Electronically, [facility]/pharmacy #[id number], 152, cm, 01/18/20 9:51:00 EDT, [...] tablet, 0 Refills, Maintenance, 05/25/20 9:12:00 EDT, [facility]/pharmacy #[id number], labs needed, 152, cm, 03/16/20 15:37:00 EDT, Height, 67.27, kg, 01/26/19 8:44:00 EDT, Dry Weight Start Date: 05/25/20 Status: Ordered losartan 50 mg oral tablet 100 mg, 2, tablet, By Mouth, Daily, # 180 tablet, Refills 3, Tot. Refills 3, Maintenance, 01/21/20 9:57:00 EDT, [id number] mg tab on backorder, 152, cm,01/18/20 9:51:00 EDT, Height, 67.27, kg, 01/26/19 8... Start Date: 01/21/20 Stop Date: 01/15/21 Status: Ordered NIFEdipine 90 mg oral tablet, extended release 90 mg, 1, tablet, By Mouth, Daily, # 30 tablet, Refills 5, Tot. Refills 5, Maintenance, 02/15/20 15:17:00 EDT, Route to Pharmacy Electronically, [facility]/pharmacy #[id number], 152, cm, 01/18/20 9:51:00 EDT, [...] 5 Refills, Maintenance, 02/15/20 15:18:00 EDT, Tablet, [facility]/pharmacy #[id number], 152, cm, 01/18/20 9:51:00 EDT, Height, 67.27, kg, 01/26/19 8:44:00 EDT, Dry Weight Start Date: 02/15/20 Status: Ordered Vitamin D3 1000 intl units oral capsule 1 capsule = 1,000 International_Units, By Mouth, Daily, # 90 capsule, 3 Refills, Maintenance, 05/25/20 10:43:00 EDT, Capsule, [facility]/pharmacy #[id number], 152, cm, 03/16/20 15:37:00 EDT, [...]
--- OUTSIDE RECORDS SUMMARY | 2024-02-27 23:36 | XMS_ITS | Continuity of Care Document ---
Author Organization [facility] Address [address] [place] [address]- Care Team Providers Care Laundry Housekeeper Name Role Phone Ijeoma Lim MD Primary Care Physician [phone] [place] [facility] [place]/15/[place] - 03/22/20 [facility] [address] [place] [address]- [facility] Encounter Diagnosis Chest pain(Discharge Diagnosis) - 03/15/20 Hypertension(Discharge Diagnosis) - 03/15/20 Attending Physician: Ijeoma Lim MD Allergies, Adverse [...] 13:54:00 EDT, Inhaler, Route to Pharmacy Electronically, [id number], [facility]/pharmacy #[id number], 152, cm, 01/18/20 9:51:00 EDT, [place]... Start Date: 02/12/20 Status: Ordered aspirin 81 mg oral delayed release tablet 81 mg, 1, tablet, By Mouth, Daily, # 30 tablet, Refills 5, Tot. Refills 5, Maintenance, 02/15/20 15:17:00 EDT, Route to Pharmacy Electronically, [facility]/pharmacy #[id number], 152, cm, 01/18/20 9:51:00 EDT, Height, 67.27, kg, 01/26/19 8:44:00 EDT, Dry Weight Start Date: 02/15/20 Status: Ordered chlorthalidone 25 mg oral tablet 25 mg, 1, tablet, By Mouth, Daily, # 30 tablet, Refills 5, Tot. Refills 5, Maintenance, 02/15/20 15:17:00 EDT, Route to Pharmacy Electronically, [facility]/pharmacy #[id number], 152, cm, 01/18/20 9:51:00 [...] tablet, 3 Refills, Maintenance, 03/03/20 13:39:00 EDT, [facility]/pharmacy #[id number], 152, cm, 02/22/20 12:49:00 EDT, Height, 67.27, kg, 01/26/19 8:44:00 EDT, Dry Weight Start Date: 03/03/20 Status: Ordered losartan 50 mg oral tablet 100 mg, 2, tablet, By Mouth, Daily, # 180 tablet, Refills 3, Tot. Refills 3, Maintenance, 01/21/20 9:57:00 EDT, [id number] 100 mg tab on backorder, 152, cm,01/18/20 9:51:00 EDT, Height, 67.27, kg, 01/26/19 8... Start Date: 01/21/20 Stop Date: 01/15/21 Status: Ordered NIFEdipine 90 mg oral tablet, extended release 90 mg, 1, tablet, By Mouth, Daily, # 30 tablet, Refills 5, Tot. Refills 5, Maintenance, 02/15/20 15:17:00 EDT, Route to Pharmacy Electronically, [facility]/pharmacy #[id number], 152, cm, 01/18/20 9:51:00 EDT, Height, 67.27, kg, 01/26/19 8:44:00 EDT, Dry Weight Start Date: 02/15/20 Stop Date: 08/13/20 Status: Ordered omeprazole 20 mg oral delayed release tablet 1 tablet = 20 mg, By Mouth, Daily, # 60 tablet, 11 Refills, Maintenance, 08/03/19 16:23:53 EDT, EC Tablet, [facility]/pharmacy #[id number], May subsitute capsule as needed by insurance Start Date: 08/03/19 Status: Ordered pravastatin 40 mg oral tablet 1 tablet = 40 mg, By Mouth, Daily, # 30 tablet, 5 Refills, Maintenance, 02/15/20 15:18:00 EDT, Tablet, [facility]/pharmacy #[id number], 152, cm, 01/18/20 9:51:00 [...] Dates Health Status Cl inical Service Informant Chest pain Discharge Diagnosis 03/15/20 Hypertension Discharge Diagnosis 03/15/20 Vital Signs Most recent to oldest [Reference Range]: 1 Height 152 cm (03/15/20 11:10 AM) Social History Social History Type Response Smoking Status Never smoker; Tobacc o user in household: No entered on: 10/01/17 Sex
--- OUTSIDE RECORDS SUMMARY | 2024-02-27 23:36 | XMS_ITS | Continuity of Care Document ---
Author Organization [facility] Kira isidoro Address [address] [place] [address] [address] [place] [address]- Care Team Providers Care Driver Education Road Instructor Name Role Phone Ijeoma Lim MD Primary Care Physician Encounter [facility] Date(s): 01/09/22 - 02/08/22 [facility] [address] [place], [place] [address] Allergies, Adverse Reactions, Alerts Substance Reaction [...]
--- OUTSIDE RECORDS SUMMARY | 2024-02-27 23:36 | XMS_ITS | Continuity of Care Document ---
Author Organization [facility] Address [address] [place] [address] [address] [place] [address]- Care Team Providers Care Lute Packer Or Applier Name Role Phone Ijeoma Lim MD Primary Care Physician [phone] [place] [facility] [place]23 [place] 06/06/23 [facility] [address] [place], [place] [address] Attending Physician: Felicitas Forde Allergies, Adverse Reactions, Alerts Substance Reaction Severity [...] acel(Tdap) 12/27/17 Given 1Result Comment: Done at [employer] 2Result Comment: Done at work Medications chlorthalidone 25 mg oral tablet 25 mg, 1, tablet, By Mouth, Daily, # 90 tablet, Refills 3, Tot. Refills 3, Maintenance, 08/13/22 12:20:00 EDT, Route to Pharmacy Electronically, [facility]/pharmacy #[id number], 152.4, cm, 08/10/22 15:55:00 EDT, Height, 75.6, [...] oldest [Reference Range]: 1 Height 152 cm (05/30/23 4:08 PM) Weight 76.8 kg (05/30/23 4:08 PM) Body Mass Index [18.5-24.99 kg/m2] 33.24 kg/m2 *>HHI* (05/30/23 4:08 PM) Social History Social History Type Response Smoking Status Never smoker; Tobacc o user in household: No entered on: 10/01/17 Sex Patient Care team information Care Team Personnel Name: Michelle LIN, Bailee Position: [facility] Nurse Member Role: Primary Care Nurse Name: Ijeoma Lim MD Position: [facility] Physician - Primary Care Member Role: PCP Address: Address: [address] [place] [address] Adult & [place] [address]- Care Team Related Persons Name: TAZ BATES Address: home [address] [place] [address]
--- OUTSIDE RECORDS SUMMARY | 2024-02-27 23:36 | XMS_ITS | Continuity of Care Document ---
Author Organization [facility] Address [address] [place] [address]- Care Team Providers Care Desktop Support Associate Name Role Phone Ijeoma Lim MD Primary Care Physician Encounter [facility] [place] Date(s): 09/30/23 - 10/30/23 [facility] [address] [place], [place] [address] Allergies, Adverse Reactions, Alerts Substance Reaction [...] acel(Tdap) 12/27/17 Given 1Result Comment: Done at [employer] 2Result Comment: Done at work Medications barium sulfate 2% oral suspension See Instructions, dispense 2 bottles 1st bottle 6 hrs before & 2nd bottle [address], # 2each, 0 Refills, Maintenance, 09/13/23 9:28:00 EST, [id number], Partial fill upon patient request if the prescription is for a schedule II opioid... Start Date: 09/13/23 Status: Ordered chlorthalidone 25 mg oral tablet 1, tablet, By Mouth, Daily, # 90 tablet, Refills 1, Maintenance, 08/20/23 0:15:00 EDT, Route to Pharmacy Electronically, [id number], 152, cm, 08/01/23 10:56:00 EDT, Height, 76.8, kg, 05/16/23 10:20:00 EDT, Dry Weight Start Date: 08/20/23 Status: Ordered docusate sodium 100 mg oral capsule 100 mg, 1, capsule, By Mouth, 2 times a day, # 60 capsule, Refills 1, Tot. Refills 1, Maintenance, 09/13/23 9:07:00 EST, Route to Pharmacy Electronically, [facility]/pharmacy #[id number], Partial fill [...] EDT, Route to Pharmacy Electronically, [facility], 152, cm, 08/01/23 10:56:00 EDT, Height, 76.8, kg, 05/16/23 10:20:00 EDT, Dry Weight Start Date: 08/24/23 Status: Ordered fluticasone 50 mcg/inh nasal spray 1 sprays, Nares, Both, 2 times a day, # 16 Gm, 0 Refills, Maintenance, 08/01/23 11:21:00 EDT, [place], [facility]/pharmacy #[id number], Partial fill upon patient request if the prescription is for a schedule II opioid drug., 1 sprays Nares, Both 2 times a day, 152,... Start Date: 08/01/23 Status: Ordered levothyroxine 0.137 mg oral tablet 1 tablet = 137 mcg, By Mouth, Daily, # 60 tablet, 6 Refills, Maintenance, 09/16/23 19:32:00 EST, Tablet, [facility]/pharmacy #[id number], Partial fill upon patient request if the prescription is for a schedule IIopioid drug., 152, cm, 09/13/23 8:42:00 EST, Height... Start Date: 09/16/23 Stop Date: 11/09/24 Status: Ordered losartan 50 mg oral tablet 50 mg, 1, tablet, By Mouth, Daily, # 90 tablet, Refills 3, Tot. Refills 3, Maintenance, 05/06/23 10:17:00 EDT, Route to Pharmacy Electronically, [facility]/pharmacy #[id number], 100 mg tab on backorder, 152.4, cm, 05/06/23 9:42:00 EDT, Height, 75.6, kg, 05/14/22 7... Start Date: 05/06/23 Stop Date: 04/30/24 Status: Ordered montelukast 10 mg oral tablet 10 mg, 1, tablet, By Mouth, Daily, # 90 tablet, Refills 3, Tot. Refills 3, Maintenance, 05/06/23 10:17:00 EDT, Route to Pharmacy Electronically, [facility]/pharmacy #[id number], Partial fill upon patient request if the prescription is for a schedule II opioid drug... Start Date: 05/06/23 Stop Date: 04/30/24 Status: Ordered omeprazole 40 mg oral enteric coated capsule 1 capsule = 40 mg, By Mouth, Daily, # 90 capsule, 3 Refills, Maintenance, 10/09/23 16:07:00 EST, ECCapsule, [facility]/pharmacy #[id number], Partial fill upon patient request if the prescription is for a schedule II opioid drug., 152, cm, 10/09/23 15:44:00 EST, H... Start Date: 10/09/23 Stop Date: 10/03/24 Status: Ordered rosuvastatin 20 mg oral tablet 1 tablet, By Mouth, Daily, # 90 tablet, 3 Refills, Maintenance, 01/09/23 9:26:00 EDT, [facility]/pharmacy #[id number], 152.4, cm, 01/09/23 8:53:00 [...] Care Member Role: PCP Address: Address: [address] [place] [address] Adult & [place] [address]- Care Team Related Persons Name: TAZ BATES Address: home [address] [place] [address]
--- OUTSIDE RECORDS SUMMARY | 2024-02-27 23:36 | XMS_ITS | Continuity of Care Document ---
Author Organization [facility] Address [address] [place] [address]- Care Team Providers Care House Mother Name Role Phone Ijeoma Lim MD Primary Care Physician Encounter [facility] Date(s): 03/03/20 - 07/01/20 [facility] [address] [place] [address]- [facility] Attending Physician: Ijeoma Lim MD Allergies, [...] 13:54:00 EDT, Inhaler, Route to Pharmacy Electronically, [id number], [id number], 152, cm, 01/18/20 9:51:00 EDT, [...] 02/15/20 15:17:00 EDT, Route to Pharmacy Electronically, [facility]/pharmacy #[id number], 152, cm, 01/18/20 [...] tablet, 0 Refills, Maintenance, 05/25/20 9:12:00 EDT, [facility]/pharmacy #[id number], labs needed, 152, cm, 03/16/20 15:37:00 EDT, Height, 67.27, kg, 01/26/19 8:44:00 EDT, Dry Weight Start Date: 05/25/20 Status: Ordered losartan 50 mg oral tablet 100 mg, 2, tablet, By Mouth, Daily, # 180 tablet, Refills 3, Tot. Refills 3, Maintenance, 01/21/20 9:57:00 EDT, Route to Pharmacy Electronically, [facility]/pharmacy #[id number], 100 mg tab on backorder, 152, cm,01/18/20 9:51:00 EDT, Height, 67.27, kg, 01/26/19 8... Start Date: 01/21/20 Stop Date: 01/15/21 Status: Ordered NIFEdipine 90 mg oral tablet, extended release 90 mg, 1, tablet, By Mouth, Daily, # 30 tablet, Refills 5, Tot. Refills 5, Maintenance, 02/15/20 15:17:00 EDT, Route to Pharmacy Electronically, [facility]/pharmacy #[id number], 152, cm, 01/18/20 9:51:00 EDT, Height, 67.27, kg, 01/26/19 8:44:00 EDT, Dry Weight Start Date: 02/15/20 Stop Date: 08/13/20 Status: Ordered omeprazole 20 mg oral enteric coated capsule 1 capsule = 20 mg, By Mouth, Daily, # 90 capsule, 3 Refills, Maintenance, 05/26/20 15:26:00 EDT, ECCapsule, [facility]/pharmacy #[id number], 152, cm, 03/16/20 15:37:00 EDT, Height, 67.27, kg, 01/26/19 8:44:00 EDT, Dry Weight Start Date: 05/26/20 Status: Ordered pravastatin 40 mg oral tablet 1 tablet = 40 mg, By Mouth, Daily, # 30 tablet, 5 Refills, Maintenance, 02/15/20 15:18:00 EDT, Tablet, [facility]/pharmacy #[id number], 152, cm, 01/18/20 9:51:00 EDT, Height, 67.27, kg, 01/26/19 8:44:00 EDT, Dry Weight Start Date: 02/15/20 Status: Ordered Vitamin D3 1000 intl units oral capsule 1 capsule = 1,000 International_Units, By Mouth, Daily, # 90 capsule, 3 Refills, Maintenance, 05/25/20 10:43:00 EDT, Capsule, [facility]/pharmacy #[id number], 152, cm, 03/16/20 [...]
--- OUTSIDE RECORDS SUMMARY | 2024-02-27 23:36 | XMS_ITS | Continuity of Care Document ---
Author Organization [facility] Address [address] [place] [address]- Care Team Providers Care Lead Person Name Role Phone Ijeoma Lim MD Primary Care Physician Encounter [facility] [place] Date(s): 03/25/23 - 04/24/23 [facility] [address] [place], [place] [address] Attending Physician: Gloria Prescott Admitting [...] 09/24/22 16:52:00 EST, Route to Pharmacy Electronically, [facility]/pharmacy #[id number], Partial fill upon [...] 03/06/23 9:30:00 EDT, Route to Pharmacy Electronically, [facility]/pharmacy #[id number], Partial fill upon patient requestif the prescription is for a schedule II opioid eva... Start Date: 03/06/23 Stop Date: 09/02/23 Status: Ordered levothyroxine 150 mcg (0.15 mg) oral tablet See Instructions, 1 tablet By Mouth 6 days weekly and 0.5 tabs on the 7th day., # 30 each, 11 Refills, Maintenance, 11/01/22 13:39:00 EST, [facility] [...] 03/06/23 9:29:00 EDT, Route to Pharmacy Electronically, [facility]/pharmacy #[id number], Partial fill upon patient request if the prescription is for a schedule II opioid drug.... Start Date: 03/06/23 Stop Date: 05/05/23 Status: Ordered rosuvastatin 20 mg oral tablet 1 tablet, By Mouth, Daily, # 90 tablet, 3 Refills, Maintenance, 01/09/23 9:26:00 EDT, [facility]/pharmacy #[id number], 152.4, cm, 01/09/23 8:53:00 EDT, Height, 75.6, kg, 05/14/22 7:15:00 EDT, Dry Weight Start Date: 01/09/23 Status: Ordered Vitamin D3 1000 intl units oral capsule 1 capsule = 1,000 International_Units, By Mouth, Daily, # 90 capsule, 3 Refills, Maintenance, 01/09/23 9:26:00 EDT, Capsule, [facility]/pharmacy #[id number], 152.4, cm, 01/09/23 8:53:00 [...] on: 10/01/17 Sex Laboratory * 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
--- OUTSIDE RECORDS SUMMARY | 2024-02-27 23:36 | XMS_ITS | Continuity of Care Document ---
Author Organization [facility] Address [address] [place] [address]- Care Team Providers Care Sales Engagement Manager Name Role Phone Ijeoma Lim MD Primary Care Physician [place] [facility] [place] 09[place]16[place]23 - 10/16/23 [facility] [address] [place] [id number] Allergies, Adverse Reactions, Alerts Substance [...] acel(Tdap) 12/27/17 Given 1Result Comment: Done at [employer] 2Result Comment: Done at work Medications barium sulfate 2% oral suspension See Instructions, dispense 2 bottles 1st bottle 6 hrs before & 2nd bottle [address], # 2each, 0 Refills, Maintenance, 09/13/23 9:28:00 EST, [facility]/pharmacy #06, Partial fill upon patient request if the prescription is for a schedule II opioid... Start Date: 09/13/23 Status: Ordered chlorthalidone 25 mg oral tablet 1, tablet, By Mouth, Daily, # 90 tablet, Refills 1, Maintenance, 08/20/23 0:15:00 EDT, Route to [facility] Electronically, [id number], 152, cm, 08/01/23 10:56:00 EDT, Height, 76.8, kg, 05/16/23 10:20:00 EDT, Dry Weight Start Date: 08/20/23 Status: Ordered docusate sodium 100 mg oral capsule 100 mg, 1, capsule, By Mouth, 2 times a day, # 60 capsule, Refills 1, Tot. Refills 1, Maintenance, 09/13/23 9:07:00 EST, Route to Pharmacy Electronically, [facility]/pharmacy #[id number], Partial fill upon [...] EDT, Route to Pharmacy Electronically, [id number], 152, cm, 08/01/23 10:56:00 EDT, Height, 76.8, kg, 05/16/23 10:20:00 EDT, Dry Weight Start Date: 08/24/23 Status: Ordered fluticasone 50 mcg/inh nasal spray 1 sprays, Nares, Both, 2 times a day, # 16 Gm, 0 Refills, Maintenance, 08/01/23 11:21:00 EDT, [place], [facility]/pharmacy #[id number], Partial fill upon patient request if the prescription is for a schedule II opioid drug., 1 sprays Nares, Both 2 times a day, 152,... Start Date: 08/01/23 Status: Ordered levothyroxine 0.137 mg oral tablet 1 tablet = 137 mcg, By Mouth, Daily, # 60 tablet, 6 Refills, Maintenance, 09/16/23 19:32:00 EST, Tablet, [facility]/pharmacy #[id number], Partial fill upon patient request if the prescription is for a schedule IIopioid drug., 152, cm, 09/13/23 8:42:00 EST, Height... Start Date: 09/16/23 Stop Date: 11/09/24 Status: Ordered losartan 50 mg oral tablet 50 mg, 1, tablet, By Mouth, Daily, # 90 tablet, Refills 3, Tot. Refills 3, Maintenance, 05/06/23 10:17:00 EDT, Route to Pharmacy Electronically, [facility]/pharmacy #[id number], 100 mg tab on backorder, 152.4, cm, 05/06/23 9:42:00 EDT, Height, 75.6, kg, 05/14/22 7... Start Date: 05/06/23 Stop Date: 04/30/24 Status: Ordered montelukast 10 mg oral tablet 10 mg, 1, tablet, By Mouth, Daily, # 90 tablet, Refills 3, Tot. Refills 3, Maintenance, 05/06/23 10:17:00 EDT, Route to Pharmacy Electronically, [facility]/pharmacy #[id number], Partial fill upon patient request if the prescription is for a schedule II opioid drug... Start Date: 05/06/23 Stop Date: 04/30/24 Status: Ordered omeprazole 40 mg oral enteric coated capsule 1 capsule = 40 mg, By Mouth, Daily, # 90 capsule, 3 Refills, Maintenance, 10/09/23 16:07:00 EST, ECCapsule, [facility]/pharmacy #[id number], Partial fill upon patient request if the prescription is for a schedule II opioid drug., 152, cm, 10/09/23 15:44:00 EST, H... Start Date: 10/09/23 Stop Date: 10/03/24 Status: Ordered rosuvastatin 20 mg oral tablet 1 tablet, By Mouth, Daily, # 90 tablet, 3 Refills, Maintenance, 01/09/23 9:26:00 EDT, [facility]/pharmacy #[id number], 152.4, cm, 01/09/23 8:53:00 EDT, Height, [...] Primary Care Member Role: PCP Address: Address: [address] [place] [address] Adult & [place] [address]- Care Team Related Persons Name: TAZ BATES Address: home [address] [place] [address]
--- OUTSIDE RECORDS SUMMARY | 2024-02-27 23:36 | XMS_ITS | Continuity of Care Document ---
Author Organization [facility] Address [address] [place] [address]- Care Team Providers Care Corporate Aircraft Mechanic Name Role Phone Raphael WILDER, Ijeoma Toth Primary Care Physician Encounter [facility] Date(s): 01/18/20 - 01/28/20 [facility] [address] [place] [address]- [facility] Attending Physician: Gloria Prescott Admitting Physician: Gloria [...] Gm, Refills 0, Tot. Refills 0, Maintenance, 01/28/20 15:53:00 EDT, Inhaler, Route to Pharmacy Electronically, [id number], [facility]/pharmacy #[id number], 152, cm, 01/18/20 9:51:00 EDT, [place]... Start Date: 01/28/20 Status: Ordered aspirin 81 mg oral delayed release tablet 81 mg, 1, tablet, By Mouth, Daily, # 30 tablet, Refills 11, Tot. Refills 11, Maintenance, 02/17/19 17:50:07 EDT, Route to Pharmacy Electronically, [id number], [facility]/pharmacy #[id number] Start Date: 02/17/19 Status: Ordered chlorthalidone 25 mg oral tablet 25 mg, 1, tablet, By Mouth, Daily, # 30 tablet, Refills 11, Tot. Refills 11, Maintenance, 02/17/19 17:50:09 EDT, Route to Pharmacy Electronically, [id number], [facility]/pharmacy #[id number] Start Date: 02/17/19 Status: Ordered ferrous [...] 02/17/19 17:50:07 EDT, Route to Pharmacy Electronically, [id number], [facility]/pharmacy #[id number] Start Date: 02/17/19 Stop Date: 02/12/20 Status: Ordered omeprazole 20 mg oral delayed release tablet 1 tablet = 20 mg, By Mouth, Daily, # 60 tablet, 11 Refills, Maintenance, 08/03/19 16:23:53 EDT, EC Tablet, [facility]/pharmacy #[id number], May subsitute capsule as needed by insurance Start Date: 08/03/19 Status: Ordered pravastatin 40 mg oral tablet 1 tablet = 40 mg, By Mouth, Daily, # 30 tablet, 11 Refills, Maintenance, 02/17/19 17:50:08 EDT, Tablet Start Date: 02/17/19 Status: Ordered Vitamin D3 1000 intl units [...]
--- OUTSIDE RECORDS SUMMARY | 2024-02-27 23:36 | XMS_ITS | Continuity of Care Document ---
Author Organization [facility] Address [address] [place] [address]- Care Team Providers Care Slasher Operator Name Role Phone Raphael WILDER, Ijeoma Toth Primary Care Physician Encounter [facility] Date(s): 07/17/22 - 08/16/22 [facility] [address] [place], [place] [address] Allergies, Adverse Reactions, Alerts [...] acel(Tdap) 12/27/17 Given 1Result Comment: Done at [employer] 2Result Comment: Done at work Medications aspirin [...] 08/13/22 12:20:00 EDT, Route to Pharmacy Electronically, [facility]/pharmacy #[id number], 152.4, cm, 08/10/22 15:55:00 EDT, [...] 3 Refills, Maintenance, 01/11/22 15:35:00 EDT, Tablet, [facility]/pharmacy #[id number], Partial fill upon patient request if the prescription is for a schedule II opioid drug., 152.4, cm, 01/11/22 15:23:00... Start Date: 01/11/22 Status: Ordered levothyroxine 0.137 mg oral tablet See Instructions, 1 tablet By Mouth 6 days per week and 1/2 pill on day 7, # 90 each, 3 Refills, Maintenance, 07/20/22 8:57:00 EDT, Tablet, [facility]/pharmacy #[id number], Partial fill upon patient request if the prescription is for a schedule II opioid drug., 15... Start Date: 07/20/22 Status: Ordered losartan 50 mg oral tablet 50 mg, 1, tablet, By Mouth, Daily, # 90 tablet, Refills 3, Tot. Refills 3, Maintenance, 04/26/22 15:42:00 EDT, Route to Pharmacy Electronically, [facility] [...] Name: Raphael WILDER, Ijeoma Toth Address: Address: [address] [place] [address] Adult & Pediatric [address]
--- OUTSIDE RECORDS SUMMARY | 2024-02-27 23:36 | XMS_ITS | Continuity of Care Document ---
Author Organization [facility] Address [address] [place] [address]- Care Team Providers Care Liver Trimmer Name Role Phone Ijeoma Lim MD Primary Care Physician Encounter [facility] [place] Date(s): 08/01/23 - 08/08/23 [facility] [address] [place] [address]- Encounter Diagnosis Sinus congestion(Discharge Diagnosis) - 08/01/23 Eustachian tube dysfunction(Discharge Diagnosis) - 08/01/23 Attending Physician: Mariza Fritz MD Referring Physician: Ijeoma Lim MD Allergies, [...] 03/06/23 9:30:00 EDT, Route to Pharmacy Electronically, [facility]/pharmacy #[id number], Partial fill upon patient requestif the prescription is for a schedule II opioid eva... Start Date: 03/06/23 Stop Date: 09/02/23 Status: Ordered fluticasone 50 mcg/inh nasal spray 1 sprays, Nares, Both, 2 times a day, # 16 Gm, 0 Refills, Maintenance, 08/01/23 11:21:00 EDT, [place], [facility]/pharmacy #[id number], Partial fill upon [...] Effective Dates Health Status Clinical Service Informant Sinus congestion Discharge Diagnosis 08/01/23 Eustachian tube dysfunction Discharge Diagnosis 08/01/23 Vital Signs Most recent to oldest [Reference Range]: 1 Height 152 cm (08/01/23 10:56 AM) Oxygen Saturation [94-100 %] 96 % (08/01/23 10:56 AM) Pulse Rate [55-90 bpm] 65 bpm (08/01/23 10:56 AM) Blood Pressure [90-138/55-84 mm Hg] 141/ 85mm Hg *H* (08/01/23 10:56 AM) Respiratory Rate [16-30 br/min] 18 br/mi n (08/01/23 10:56 AM) Temperature [96.8-100.4 DegF] 96.9 DegF (08/01/23 10:56 AM) Mode of Delivery (Oxygen) Room air (08/01/23 10:56 AM) Blood pressure sites Arm, left (08/01/23 10:56 AM) Temperature Route Temporal (08/01/23 10:56 AM) Social History Social History Type Response Smoking Status Never smoker; Tobacc o user in household: No entered on: 10/01/17 Sex Note * Leia Callejas: PERFORM, SIGN, VERIFY Event Display: Patient Education/Instruction Authored Date: [id number] [facility] Clinical Summary Name ANTONI DRUMMOND Age 52 Years 1970 PCP Ijeoma Lim MD PCP Visit Date 08/01/2023 10:13:00 Additional Instructions: Scheduled Appointments?? Future Appointments ?[facility] ?[address],??[place],??[address] ?Phone:??[phone]?Fax:??-- ?Appt. Date:??08/02/2023?7:30 AM ?Scheduled Provider:??[facility] US Rm 5 ?*[facility] ?[address]??[place],??[place],??[address] ?Phone:??--?Fax:??-- ?Appt. Date:??09/09/2023?9:10 AM ?Scheduled Provider:??Ijeoma Lim MD ?*[facility] ?Phone:??--?Fax:??-- ?Appt. Date:??10/09/2023?2:40 PM ?Scheduled Provider:??[facility] ?*[facility] ?[address],??[place],??[address] ?Phone:??--?Fax:??-- ?Appt. Date:??10/09/2023?3:45 PM ?Scheduled Provider:??Gerard Valdez MD Follow-Up Instructions ?? Diagnosis Nasal congestion; Other specified disorders of Eustachian tube, unspecified ear Medications: Please continue your medications until treatment is completed or stopped by your provider. Discuss any questions related to medications with your provider. New Medications [id number], [id number] [place] [id number], [phone] Fluticasone Nasal (fluticasone 50 mcg/inh nasal spray) 1 spray(s) Nares, Both twice a day. Refills:0. Next Dose: Pseudoephedrine (Sudafed 12-Hour 120 mg oral tablet, extended release) 1 tab(s) Oral every 12 hoursas needed as needed for cold symptoms for 7 Days. Refills: 0. Next Dose: Medications to Continue with No Changes These medications were not printed or sent to your pharmacy Chlorthalidone (chlorthalidone 25 mg oral tablet) 1 tab(s) Oral Daily for 90 Days. Refills: 3. Next Dose: Cholecalciferol (Vitamin D3 1000 intl units oral capsule) 1 capsule Oral Daily for 90 Days. Refills: 3. Next Dose: Diclofenac (diclofenac sodium 75 mg oral delayed release tablet) 1 tab(s) Oral twice a day for 14 Days. Refills: 0. Next Dose: Estradiol (Estrace 1 mg oral [...] Orders ?No future orders Vital Signs Height 152 cm Weight BMI Blood Pressure 141 mm Hg/85 mm Hg Temperature 96.9 DegF Pulse Rate 65 bpm Respiratory Rate 18 br/min 02 Sat Mode of Delivery 96 %/Room air You can now view a summary of your hospital visit from the comfort of your home through a free online portal called [facility]. [facility] is a website that allows you to securely view your medical information including discharge summary, medications and follow-up visits. ??You can alsosend a secure electronic message to your doctor???s office to request appointments, renew medications or just ask a question. You can enroll at [email or web address] or register during your next office visit. [...] primary care provider, you may find a [facility] provider by calling [facility] Link at [phone]. [facility], in keeping with [facility] guidance, no longer requires face masks [...] Care Member Role: PCP Address: Address: [address] [place] [address] Adult & [place] [address]- Care Team Related Persons Name: TAZ BATES Address: [address] [address]
--- OUTSIDE RECORDS SUMMARY | 2024-02-27 23:36 | XMS_ITS | Continuity of Care Document ---
Author Organization [facility] Address [address] [place] [address]- Care Team Providers Care Wastewater Plant Civil Engineer Name Role Phone Ijeoma Lim MD Primary Care Physician [phone] [place] [facility] [place] 02/12/20 - 02/19/20 [facility] [address] [place] [address]- [facility] Encounter Diagnosis Hypertension(Discharge Diagnosis) - 02/14/20 Hypothyroidism(Discharge Diagnosis) - 02/14/20 Papillary thyroid carcinoma - s/p total thyroidectomy 11/12/2018(Discharge Diagnosis) - 02/14/20 Mandibular pain(Discharge Diagnosis) - 02/14/20 Attending Physician: Ijeoma Lim MD Allergies, Adverse [...] 13:54:00 EDT, Inhaler, Route to Pharmacy Electronically, [id number], [id number], 152, cm, 01/18/20 9:51:00 EDT, [place]... Start Date: 02/12/20 Status: Ordered aspirin 81 mg oral delayed release tablet 81 mg, 1, tablet, By Mouth, Daily, # 30 tablet, Refills 5, Tot. Refills 5, Maintenance, 02/15/20 15:17:00 EDT, [id number], 152, cm, 01/18/20 9:51:00 EDT, Height, 67.27, kg, 01/26/19 8:44:00 EDT, Dry Weight Start Date: 02/15/20 Status: Ordered chlorthalidone 25 mg oral tablet 25 mg, 1, tablet, By Mouth, Daily, # 30 tablet, Refills 5, Tot. Refills 5, Maintenance, 02/15/20 15:17:00 EDT, [id number], 152, cm, 01/18/20 9:51:00 EDT, Height, [...] Pharmacy Electronically, [facility]/pharmacy #[id number], 100 mg tab on backorder, 152, cm,01/18/20 9:51:00 EDT, Height, 67.27, kg, 01/26/19 8... Start Date: 01/21/20 Stop Date: 01/15/21 Status: Ordered NIFEdipine 90 mg oral tablet, extended release 90 mg, 1, tablet, By Mouth, Daily, # 30 tablet, Refills 5, Tot. Refills 5, Maintenance, 02/15/20 15:17:00 EDT, Route to Pharmacy Electronically, [facility]/pharmacy #[id number], 152, cm, 01/18/20 9:51:00 EDT, Height, 67.27, kg, 01/26/19 8:44:00 EDT, Dry Weight Start Date: 02/15/20 Stop Date: 08/13/20 Status: Ordered omeprazole 20 mg oral delayed release tablet 1 tablet = 20 mg, By Mouth, Daily, # 60 tablet, 11 Refills, Maintenance, 08/03/19 16:23:53 EDT, EC Tablet, [facility]/pharmacy #[id number], May subsitute capsule as needed by insurance Start Date: 08/03/19 Status: Ordered pravastatin 40 mg oral tablet 1 tablet = 40 mg, By Mouth, Daily, # 30 tablet, 5 Refills, Maintenance, 02/15/20 15:18:00 EDT, Tablet, [facility]/pharmacy #[id number], 152, cm, 01/18/20 9:51:00 EDT, [...] Status Clinical Service Informant Hypertension Discharge Diagnosis 02/14/20 Hypothyroidism Discharge Diagnosis 02/14/20 Papillary thyroid carcinoma - s/p total thyroidectomy 11/12/2018 Discharge Diagnosis 02/14/20 Mandibular pain Discharge Diagnosis 02/14/20 Social History Social History Type Response Smoking Status Never smoker; Tobacc o user in household: No entered on: 10/01/17 Sex
--- OUTSIDE RECORDS SUMMARY | 2024-02-27 23:36 | XMS_ITS | Continuity of Care Document ---
Author Organization [facility] Address [address] [place] [address]- Care Team Providers Care Case Manager Name Role Phone Ijeoma Lim MD Primary Care Physician [phone] Encounter [facility] Date(s): 04/30/22 - 05/30/22 [facility] [address] [place] [id number] Attending Physician: Gloria Prescott Admitting Physician: [...] Acute 06/01/22 12:35:00 EDT,05/25/22 12:35:00 EDT, Tablet, [facility]/pharmacy #[id number], Partial fill upon [...] 3 Refills, Maintenance, 01/11/22 15:35:00 EDT, Tablet, [facility]/pharmacy #[id number], Partial fill upon [...] 04/26/22 15:42:00 EDT, Route to Pharmacy Electronically, [facility]/pharmacy #[id number], 100 mg tab on backorder, 152.4, cm, 03/30/22 13:46:00 EDT, Height, 73.5, kg, 12/12/21... Start Date: 04/26/22 Stop Date: 04/21/23 Status: Ordered rosuvastatin 20 mg oral tablet 1 tablet = 20 mg, By Mouth, Daily, # 90 tablet, 0 Refills, Maintenance, 04/27/22 17:16:00 EDT, [facility]/pharmacy #[id number], familial hyperlipidemia. pravastatin not effective., 152.4, cm, 03/30/22 13:46:00 EDT, Height, 73.5, kg, 12/12/21 9:43:00 EST, Dry Weight Start Date: 04/27/22 Stop Date: 07/26/22 Status: Ordered Vitamin D3 1000 intl units oral capsule 1 capsule = 1,000 International_Units, By Mouth, Daily, # 90 capsule, 3 Refills, Maintenance, 07/12/21 15:00:00 EDT, Capsule, [facility]/pharmacy #[id number], 152.4, cm, 07/12/21 14:27:00 [...]
--- OUTSIDE RECORDS SUMMARY | 2024-02-27 23:36 | XMS_ITS | Continuity of Care Document ---
Author Organization [facility] Address [address] [place] [address]- Care Team Providers Care Food Science Technician Name Role Phone Ijeoma Lim MD Primary Care Physician Encounter [facility] Date(s): 06/22/22 - 07/22/22 [facility] [address] [place], [place] [address] Allergies, Adverse Reactions, Alerts Substance [...] acel(Tdap) 12/27/17 Given 1Result Comment: Done at [employer] 2Result Comment: Done at work Medications aspirin [...] 3 Refills, Maintenance, 01/11/22 15:35:00 EDT, Tablet, [facility]/pharmacy #0693, Partial fill upon patient request if the prescription is for a schedule II opioid drug., 152.4, cm, 01/11/22 15:23:00... Start Date: 01/11/22 Status: Ordered levothyroxine 0.137 mg oral tablet See Instructions, 1 tablet By Mouth 6 days per week and 1/2 pill on day 7, # 90 each, 3 Refills, Maintenance, 07/20/22 8:57:00 EDT, Tablet, [facility]/pharmacy #0693, Partial fill upon patient request if the prescription is for a schedule II opioid drug., 15... Start Date: 07/20/22 Status: Ordered losartan 50 mg oral tablet 50 mg, 1, tablet, By Mouth, Daily, # 90 tablet, Refills 3, Tot. Refills 3, Maintenance, 04/26/22 15:42:00 EDT, Route to Pharmacy Electronically, [facility]/pharmacy #[id number], 100 mg tab on backorder, 152.4, [...] Name: Raphael WILDER, Ijeoma Toth Address: Address: [address] [place] [address] Adult & Pediatric [address]
--- OUTSIDE RECORDS SUMMARY | 2024-02-27 23:36 | XMS_ITS | Continuity of Care Document ---
Author Organization [facility] Address [address] [place] [address]- Care Team Providers Care Security Checker Name Role Phone Raphael WILDER, Ijeoma Toth Primary Care Physician Encounter [facility] Date(s): 01/27/23 - 02/26/23 [facility] [address] [place], [place] [address] Allergies, [...] acel(Tdap) 12/27/17 Given 1Result Comment: Done at [employer] 2Result Comment: Done at work Medications aspirin [...] [id number] Partial fill upon patient request if the prescription is for a schedule II opi... Start Date: 09/24/22 Status: Ordered chlorthalidone 25 mg oral tablet 25 mg, 1, tablet, By Mouth, Daily, # 90 tablet, Refills 3, Tot. Refills 3, Maintenance, 08/13/22 12:20:00 EDT, Route to Pharmacy Electronically, [facility]/pharmacy #[id number], 152.4, cm, 08/10/22 15:55:00 EDT, Height, 75.6, kg, 05/14/22 7:15:00 EDT, Dry Weight Start Date: 08/13/22 Stop Date: 08/08/23 Status: Ordered cyclobenzaprine 10 mg oral tablet 1, tablet, By Mouth, 3 times a day, # 10 tablet, Refills 1, Maintenance, 08/27/22 7:59:00 EST, Route to Pharmacy Electronically, [facility]ORE [id number], 152.4, cm, 08/10/22 15:55:00 EDT, Height, 75.6, [...] Refills, Maintenance, 01/11/22 15:35:00 EDT, Tablet, [facility]/pharmacy #[id number], Partial fill upon patient request if the prescription is for a schedule II opioid drug., 152.4, cm, 01/11/22 15:23:00... Start Date: 01/11/22 Status: Ordered FLUoxetine 10 mg oral capsule 10 mg, 1, capsule, By Mouth, Daily, # 30 capsule, Refills 1, Tot. Refills 1, Maintenance, 01/09/23 9:29:00 EDT, Route to Pharmacy Electronically, [facility]/pharmacy #[id number], Partial fill upon patient [...] 15:42:00 EDT, Route to Pharmacy Electronically, [facility]/pharmacy #[id number], 100 mg tab on backorder, 152.4, cm, 03/30/22 13:46:00 EDT, Height, 73.5, kg, 12/12/21... Start Date: 04/26/22 Stop Date: 04/21/23 Status: Ordered rosuvastatin 20 mg oral tablet 1 tablet, By Mouth, Daily, # 90 tablet, 3 Refills, Maintenance, 01/09/23 9:26:00 EDT, [facility]/pharmacy #[id number], 152.4, cm, 01/09/23 8:53:00 EDT, Height, 75.6, kg, 05/14/22 7:15:00 EDT, Dry Weight Start Date: 01/09/23 Status: Ordered Vitamin D3 1000 intl units oral capsule 1 capsule = 1,000 International_Units, By Mouth, Daily, # 90 capsule, 3 Refills, Maintenance, 01/09/23 9:26:00 EDT, Capsule, [facility]/pharmacy #[id number], 152.4, cm, 01/09/23 8:53:00 [...] Team Personnel Name: Michelle LIN, Bailee Position: [facility] AMB Nurse Member Role: Primary Care Nurse Name: Ijeoma Lim MD Position: [facility] Primary Care Physician Member Role: PCP Address: Address: [address] [place] [address] Adult [place] [address]- Care Team Related Persons Name: TAZ BATES Address: home [address] [place] [id number]
--- OUTSIDE RECORDS SUMMARY | 2024-02-27 23:36 | XMS_ITS | Continuity of Care Document ---
Author Organization [facility] Address [address] [place] [address]- Care Team Providers Care Nutrition Services Associate Name Role Phone Ijeoma Lim MD Primary Care Physician [place] [facility] [place]23 - 10/02/[address] [address] Allergies, Adverse Reactions, Alerts Substance [...] acel(Tdap) 12/27/17 Given 1Result Comment: Done at [employer] 2Result Comment: Done at work Medications barium sulfate 2% oral suspension See Instructions, dispense 2 bottles 1st bottle 6 hrs before & 2nd bottle [address], # 2each, 0 Refills, Maintenance, 09/13/23 9:28:00 EST, [facility]/pharmacy #[id number], Partial fill upon patient request if the prescription is for a schedule II opioid... Start Date: 09/13/23 Status: Ordered chlorthalidone 25 mg oral tablet 1, tablet, By Mouth, Daily, # 90 tablet, Refills 1, Maintenance, 08/20/23 0:15:00 EDT, Route to Pharmacy Electronically, [facility] STORE [id number], 152, cm, 08/01/23 10:56:00 EDT, Height, 76.8, kg, 05/16/23 10:20:00 EDT, Dry Weight Start Date: 08/20/23 Status: Ordered docusate sodium 100 mg oral capsule 100 mg, 1, capsule, By Mouth, 2 times a day, # 60 capsule, Refills 1, Tot. Refills 1, Maintenance, 09/13/23 9:07:00 EST, Route to Pharmacy Electronically, [facility]/pharmacy #[id number], Partial fill [...] 08/24/23 9:01:00 EDT, Route to Pharmacy Electronically, [facility]ORE [id number], 152, cm, 08/01/23 10:56:00 EDT, Height, 76.8, kg, 05/16/23 10:20:00 EDT, Dry Weight Start Date: 08/24/23 Status: Ordered fluticasone 50 mcg/inh nasal spray 1 sprays, Nares, Both, 2 times a day, # 16 Gm, 0 Refills, Maintenance, 08/01/23 11:21:00 EDT, [place], [facility]/pharmacy #[id number], Partial fill upon patient request if the prescription is for a schedule II opioid drug., 1 sprays Nares, Both 2 times a day, 152,... Start Date: 08/01/23 Status: Ordered levothyroxine 0.137 mg oral tablet 1 tablet = 137 mcg, By Mouth, Daily, # 60 tablet, 6 Refills, Maintenance, 09/16/23 19:32:00 EST, Tablet, [facility]/pharmacy #[id number], Partial fill upon patient request if the prescription is for a schedule IIopioid drug., 152, cm, 09/13/23 8:42:00 EST, Height... Start Date: 09/16/23 Stop Date: 11/09/24 Status: Ordered losartan 50 mg oral tablet 50 mg, 1, tablet, By Mouth, Daily, # 90 tablet, Refills 3, Tot. Refills 3, Maintenance, 05/06/23 10:17:00 EDT, Route to Pharmacy Electronically, [facility]/pharmacy #[id number], 100 mg tab on backorder, 152.4, cm, 05/06/23 9:42:00 EDT, Height, 75.6, kg, 05/14/22 7... Start Date: 05/06/23 Stop Date: 04/30/24 Status: Ordered montelukast 10 mg oral tablet 10 mg, 1, tablet, By Mouth, Daily, # 90 tablet, Refills 3, Tot. Refills 3, Maintenance, 05/06/23 10:17:00 EDT, Route to Pharmacy Electronically, [facility]/pharmacy #[id number], Partial fill upon patient request if the prescription is for a schedule II opioid drug... Start Date: 05/06/23 Stop Date: 04/30/24 Status: Ordered rosuvastatin 20 mg oral tablet 1 tablet, By Mouth, Daily, # 90 tablet, 3 Refills, Maintenance, 01/09/23 9:26:00 EDT, [facility]/pharmacy #[id number], 152.4, cm, 01/09/23 [...] Personnel Name: Raphael WILDER, Ijeoma Toth Position: [facility] Physician - Primary Care Member Role: PCP Address: Address: [address] [place] [address] Adult [place] [address]- Care Team Related Persons Name: TAZ BATES Address: home [address] [place] [address]
--- OUTSIDE RECORDS SUMMARY | 2024-02-27 23:36 | XMS_ITS | Continuity of Care Document ---
Author Organization [facility] Address [address] [place] [address]- Care Team Providers Care Exhibition Organiser Name Role Phone Ijeoma Lim MD Primary Care Physician Encounter [facility] Date(s): 04/10/22 - 05/10/22 [facility] [address] [place] [address] Allergies, Adverse Reactions, Alerts Substance Reaction [...] acel(Tdap) 12/27/17 Given 1Result Comment: Done at [employer] 2Result Comment: Done at work Medications aspirin [...] 3 Refills, Maintenance, 01/11/22 15:35:00 EDT, Tablet, [facility]/pharmacy #[id number], Partial fill upon patient [...] 5 Refills, Maintenance, 04/30/22 14:45:00 EDT, Tablet, [facility]/pharmacy #[id number], Please discontinue previous prescription for 125 mcg daily. Thanks, 152.4,cm, 04/30/22 7:49:00 EDT, Height, 73.5, kg, ... Start Date: 04/30/22 Stop Date: 10/27/22 Status: Ordered losartan 50 mg oral tablet 50 mg, 1, tablet, By Mouth, Daily, # 90 tablet, Refills 3, Tot. Refills 3, Maintenance, 04/26/22 15:42:00 EDT, Route to Pharmacy Electronically, [facility]/pharmacy #[id number], 100 mg tab on backorder, 152.4, cm, 03/30/22 13:46:00 EDT, Height, 73.5, kg, 12/12/21... Start Date: 04/26/22 Stop Date: 04/21/23 Status: Ordered rosuvastatin 20 mg oral tablet 1 tablet = 20 mg, By Mouth, Daily, # 90 tablet, 0 Refills, Maintenance, 04/27/22 17:16:00 EDT, [facility]/pharmacy #[id number], familial hyperlipidemia. pravastatin not effective., 152.4, cm, 03/30/22 13:46:00 EDT, Height, 73.5, kg, 12/12/21 9:43:00 EST, Dry Weight Start Date: 04/27/22 Stop Date: 07/26/22 Status: Ordered Vitamin D3 1000 intl units oral capsule 1 capsule = 1,000 International_Units, By Mouth, Daily, # 90 capsule, 3 Refills, Maintenance, 07/12/21 15:00:00 EDT, Capsule, [facility]/pharmacy #[id number], 152.4, cm, 07/12/21 14:27:00 EDT, [...]
--- OUTSIDE RECORDS SUMMARY | 2024-02-27 23:36 | XMS_ITS | Continuity of Care Document ---
Author Organization [facility] Address [address] [place] [address] [address] [place] [address]- Care Team Providers Care Adjusto Writer Operator Name Role Phone Raphael WILDER, Ijeoma Toth Primary Care Physician [phone] Encounter [facility] Date(s): 12/25/21 - 01/01/[address] [place] [address]- Attending Physician: Santos Zapata MD Allergies, Adverse [...] oldest [Reference Range]: 1 Height 152.40 cm (12/25/21 2:14 PM) Social History Social History Type Response Smoking Status Never smoker; Tobacc o user in household: No entered on: 10/01/17 Sex
--- OUTSIDE RECORDS SUMMARY | 2024-02-27 23:36 | XMS_ITS | Continuity of Care Document ---
Author Organization [facility] Address [address] [place] [address]- Care Team Providers Care Sales Recruiting Coordinator Name Role Phone Raphael WILDER, Ijeoma Toth Primary Care Physician [phone] Encounter [facility] Date(s): 04/30/23 - 05/30/23 [facility] [address] [place], [place] [address] Allergies, Adverse Reactions, Alerts Substance [...] acel(Tdap) 12/27/17 Given 1Result Comment: Done at [employer] 2Result Comment: Done at work Medications chlorthalidone 25 mg oral tablet 25 mg, 1, tablet, By Mouth, Daily, # 90 tablet, Refills 3, Tot. Refills 3, Maintenance, 08/13/22 12:20:00 EDT, Route to Pharmacy Electronically, [facility]/pharmacy #[id number], 152.4, cm, 08/10/22 [...] 3 Refills, Maintenance, 01/11/22 15:35:00 EDT, Tablet, [facility]/pharmacy #[id number], Partial [...] Refills, Maintenance, 05/11/23 22:39:00 EDT, ER Tablet, [facility]/pharmacy #[id number], Partial [...] 3 Refills, Maintenance, 01/09/23 9:26:00 EDT, Capsule, [facility]/pharmacy #[id number], 152.4, cm, 01/09/23 [...] Care Member Role: PCP Address: Address: [address] [place] [address] Adult [place] [address]- Care Team Related Persons Name: TAZ BATES Address: home [address] [place] [address]
--- OUTSIDE RECORDS SUMMARY | 2024-02-27 23:36 | XMS_ITS | Continuity of Care Document ---
Author Organization [facility] Address [address] [place] [address]- Care Team Providers Care Economics Department Chair Name Role Phone Ijeoma Lim MD Primary Care Physician [id number] Date(s): 01/09/23 - 01/16/23 [facility] [address] [place] [address]- Attending Physician: Ijeoma Lim MD Allergies, Adverse [...] acel(Tdap) 12/27/17 Given 1Result Comment: Done at [employer] 2Result Comment: Done at work Medications aspirin [...] 16:52:00 EST, [id number], 152.4, cm, 08/10/22 15:55:00 EDT, Height, 75.6, [...] 01/09/23 9:29:00 EDT, [facility] 3 Refills, Maintenance, 01/09/23 9:26:00 EDT, [facility]/pharmacy #[id number], 152.4, cm, 01/09/23 8:53:00 EDT, Height, 75.6, kg, 05/14/22 7:15:00 EDT, Dry Weight Start Date: 01/09/23 Status: Ordered Vitamin D3 1000 intl units oral capsule 1 capsule = 1,000 International_Units, By Mouth, Daily, # 90 capsule, 3 Refills, Maintenance, 01/09/23 9:26:00 EDT, Capsule, [facility]/pharmacy #[id number], 152.4, cm, 01/09/23 8:53:00 EDT, Height, [...] oldest [Reference Range]: 1 Height 152.4 cm (01/09/23 8:53 AM) Weight 78.6 kg (01/09/23 8:53 AM) Oxygen Saturation [94-100 %] 99 % (01/09/23 8:53 AM) Pulse Rate [55-90 bpm] 73 bpm (01/09/23 8:53 AM) Body Mass Index [18.5-24.99 kg/m2] 33.84 kg/m2 *>HHI* (01/09/23 8:53 AM) Blood Pressure [90-138/55-84 mm Hg] 110/ 66mm Hg (01/09/23 8:53 AM) Mode of Delivery (Oxygen) Room air (01/09/23 8:53 AM) Blood pressure sites Arm, left (01/09/23 8:53 AM) Weight Obtained Via Standing scale (01/09/23 8:53 AM) Social History Social History Type Response Smoking Status Never smoker; Tobacc o user in household: No entered on: 10/01/17 Sex Note * Mirian Michelle: PERFORM, SIGN, VERIFY Event Display: Patient Education/Instruction Authored Date: [id number] [facility] Clinical Summary Name ANTONI DRUMMOND Age 52 Years 1970 PCP Raphael WILDER, Ijeoma Ttoh PCP Visit Date 01/09/2023 08:42:00 Patient Instructions start prozac 10 mg daily call if problems see continue current medications will check potassiuma dn thyroid in followup potassium rich diet. Additional Instructions: Scheduled Appointments?? Future Appointments ?*[facility] ?[address],??[place],??[address] ?Phone:??--?Fax:??-- ?Appt. Date:??01/16/2023?9:00 AM ?Scheduled Provider:??Benny WILDER, Santos Miranda ?*[facility] ?[address],??[place],??[address] ?Phone:??--?Fax:??-- ?Appt. Date:??02/04/2023?4:15 PM ?Scheduled Provider:??José Miguel WILDER , Gerard ?*[facility] ?[address],??[place],??[address] ?Phone:??--?Fax:??-- ?Appt. Date:??03/06/2023?8:50 AM ?Scheduled Provider:??Raphael WILDER , Ijeoma Toth ?*[facility] ?[address] ?[place],??[place],??[address] ?Phone:??--?Fax:??-- ?Appt. Date:??03/29/2023?8:00 AM ?Scheduled Provider:??Alphonso REYES, Cait Warner Follow-Up Instructions ?? Diagnosis Medications: Please continue your medications until treatment is completed or stopped by your provider. Discuss any questions related to medications with your provider. New Medications [id number], [address] [place] [id number], [phone] Fluoxetine (FLUoxetine 10 mg oral capsule) 1 capsule Oral Daily for 30 Days. Refills: 1. Next Dose: Medications to Continue with No Changes [id number], [address] [place] [id number], [phone] Cholecalciferol (Vitamin D3 1000 intl units oral capsule) 1 capsule Oral Daily for 90 Days. Refills: 3. Next Dose: Rosuvastatin (rosuvastatin 20 mg oral tablet) 1 tab(s) Oral Daily. Refills: 3. Next Dose: These medications were [...] for 90 Days. Refills: 3. Next Dose: Sucralfate (Carafate 1 gm oral tablet) 1 tab(s) Oral twice a day. Refills: 0. Next Dose: Allergy Info:?? Latex; penicillin Medications Given This Visit Future Orders ?No future orders Vital Signs Height 152.4 cm Weight 78.6 kg BMI 33.84 kg/m2 Blood Pressure 110 mm Hg/66 mm Hg Temperature Pulse Rate 73 bpm Respiratory Rate 02 Sat Mode of Delivery 99 %/Room air You can now view a summary of your hospital visit from the comfort of your home through a free online portal called [facility]. [facility] is a website that allows you to securely view your medical information including discharge summary, medications and follow-up visits. ??You can alsosend a secure electronic message to your doctor???s office to request appointments, renew medications or just ask a question. You can enroll at [email or web address] or register during your next office [...] primary care provider, you may find a [facility] provider by calling [facility] at [phone]. For information about the plan of care [...] Team Personnel Name: Bailee Martinez RN Position: [facility] AM[facility] Nurse Member Role: Primary Care Nurse Name: Ijeoma Lim MD Position: [facility] Primary Care Physician Member Role: PCP Address: Address: [address] [place] [address] Adult & Pediatric [place], [place] [address] Care Team Related Persons Name: TAZ BATES Address: [address] [address]
--- OUTSIDE RECORDS SUMMARY | 2024-02-27 23:36 | XMS_ITS | Continuity of Care Document ---
Author Organization [facility] Address [address] [place] [address]- Care Team Providers Care Sheep Sorter Name Role Phone Ijeoma Lim MD Primary Care Physician [phone] [place] [facility] [place] 12[place]04[place] - 01/03/22 [facility] [address] [place] [address] [place] Allergies, Adverse Reactions, Alerts Substance Reaction [...] 5 Refills, Maintenance, 07/26/20 10:27:00 EDT, Tablet, [facility] #[id number], 152, cm, 07/26/20 10:00:00 EDT, Height, [...]
[2024-02-27] MEDS: Potassium Chloride Packet 20 MEQ PACKET 40 MEQ PO (23:42)
[2024-02-28 00:11] LABS: B Type Natriuretic Peptide 123 pg/mL (<100)
[2024-02-28 00:14] LABS: D Dimer High Sensitivity < 150 NG/ML
[2024-02-28 00:15] LABS: TSH reflex Free T4 1.69 uIU/mL (0.32-4.0)
[2024-02-28] MEDS: Furosemide 20 MG/2 ML VIAL IVPUSH (01:21)
[2024-02-28 01:26] VITALS: BP 176/82; PULSE 69; RESP 18; TEMP 37.1; O2SAT 99
== END 2024-02-28 01:27 | disposition home or self-care (01) ==
PROVIDERS: Emergency Provider Emergency Medicine
DX: R07.89 Other chest pain (principal); R00.2 Palpitations; R06.02 Shortness of breath; I10 Essential (primary) hypertension; Z79.899 Other long term (current) drug therapy
CPT/HCPCS: 36415; 71045; 80048; 83735; 83880; 84443; 84484; 85025; 85379; 93005; 96374; 99284; J1940

== ENCOUNTER → 2024-02-27 22:27 | Outpatient (BNV) | payer OTHER, SELFPAY | PROVIDERS: Emergency Provider Emergency Medicine; Visit Provider Internal Medicine Cardiovascular Disease | DX: R07.9 Chest pain, unspecified (principal) | CPT/HCPCS: 93010 ==

== ENCOUNTER 2024-06-16 06:03 | Emergency (ER) | payer OTHER, SELFPAY ==
[2024-06-16 06:24] VITALS: BP 139/83; PULSE 76; RESP 13; TEMP 37.1; O2SAT 98; BMI 33.0
--- NOTE | 2024-06-16 06:28 | ECG_ITS ---
Test Reason : Palpitations Blood Pressure : / mmHG Vent. Rate : 073 BPM Atrial Rate : 073 BPM P-R Int : 148 ms QRS Dur : 086 ms QT Int : 436 ms P-R-T Axes : 048 -22 -07 degrees QTc Int : 480 ms Normal sinus rhythm Moderate voltage criteria for LVH, may be normal variant ( R in aVL , [place] product ) Borderline ECG When compared with ECG of 27-FEB-2024 22:29, No significant change was found Referred By: Generic ED Physician Electronically Signed By:SADIA MEHTA
[2024-06-16 06:49] LABS: Basophils Percent Auto 0.6 % (0-2); Eosinophils Absolute Auto 0.1 X10*3/uL (0.0-0.4); Eosinophils Percent Auto 0.8 % (0-4); Hematocrit 38.2 % (37.0-47.0); Hemoglobin 13.1 g/dl (12.0-16.0); Imm Gran Abs Auto 0.01 X10*3/uL (0.00-0.03); Imm Gran Pct Auto 0.2 % (0.0-0.4); Lymphocytes Absolute Auto 1.3 X10*3/uL (1.2-4.9); Lymphocytes Percent Auto 20.3 % (20-40); MANUAL DIFF FLAG NO; Mean Corpuscular HGB Conc 34.3 g/dl (31.0-35.0); Mean Corpuscular Hemoglobin 28.5 pg (27.0-33.0); Mean Corpuscular Volume 83.2 fL (80.0-98.0); Mean Platelet Volume 10.2 fL (9.4-12.3); Monocytes Absolute Auto 0.4 X10*3/uL (0.1-1.2); Monocytes Percent Auto 6.7 % (2-11); Neutrophils Absolute Auto 4.6 x10*3/uL (2.0-8.3); Neutrophils Percent Auto 71.4 % (45-73); Platelet Count 402 X10*3/uL (160-400); Red Blood Count 4.59 X10*6/uL (4.20-5.50); Red Cell Distribution Width 15.3 % (11.0-16.0); White Blood Count 6.4 X10*3/uL (4.8-10.8)
--- NOTE | 2024-06-16 07:01 | ED.GENADULT ---
HPI - General Adult General Chief complaint: Dizziness Stated complaint: allergic reaction to meds Time Seen by Provider: 06/16/24 06:38 Source: patient, RN notes reviewed and old records reviewed History of Present Illness ED Provider: Jenny Leblanc PA-C HPI narrative: 53-year-old female with a past medical history of HLD, HTN, GERD, PVCs, presenting to the ED complaining of palpitations, lightheadedness, presyncope, & full body burning s/p taking Mounjaro for the 1st time last night around 23:00. States fell asleep after administration then woke up with symptoms. 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 Denies any other new medications or exposures. Denies chest pain, shortness of breath, throat closing sensation, rash, headache Related Data Previous Rx's ?Medication ?Instructions ?Recorded potassium chloride 20 mEq oral 20 meq PO DAILY 7 days #7 ea 04/30/23 packet furosemide 20 mg tablet (Lasix) 20 mg PO DAILY #3 tabs 02/28/24 potassium chloride 20 mEq oral 20 meq PO DAILY 5 days #30 ea 02/28/24 packet Allergies Allergy/AdvReac Type Severity Reaction Status Date / Time latex Allergy Rash Verified 06/16/24 06:27 Penicillins Allergy Palpitation Verified 06/16/24 06:27 s Review of Systems Review of Systems: Constitutional: No Fever, No Chills ENT/Mouth: No Ear Pain, No Nasal Congestion, No Hoarseness, No sore throat, No Rhinorrhea, No Swallowing Difficulty Cardiovascular: No Chest Pain, No SOB, + palpitations Respiratory: No Cough, No Sputum, No Wheezing Gastrointestinal: No Nausea, No Vomiting, No Diarrhea, No Constipation, No Abdominal pain Genitourinary: No Dysuria, No Urinary Incontinence/retention, No Flank Pain Musculoskeletal: No joint pain, No Myalgias, No Joint Swelling Skin: + body burning, No Skin Lesions, No rash Neuro: No Weakness, No Numbness, No Paresthesias, + lightheadedness, +presyncope Yes all other systems are reviewed and are negative Constitutional: Constitutional: Reports as per [facility] Past Medical History Attestation statement: The following information was validated with the patient. Source: old records reviewed Medical History PVC (premature ventricular contraction) HTN (hypertension) GERD (gastroesophageal reflux disease) Hyperlipidemia Social History Social History Alcohol intake: never Patient Tobacco Use Status: Never used Tobacco Smoked in Last 30 Days: No Use of substances other than those prescribed or required for medical reasons: No Advance Directives: Yes Advance Directives Information Provided: Yes Advance Directives on File: No Do you have a plan to hurt others: No Plan Patient : No Physical Exam ED Vital Signs: Vital Signs - 24 hr 06/16/24 06:24 06/16/24 08:17 06/16/24 10:20 Temperature 98.7 F 97.5 F 97.9 F Pulse Rate 76 68 74 Respiratory Rate 13 16 12 Blood Pressure 139/83 127/67 137/76 Pulse Oximetry 98 97 98 Oxygen Delivery Method Room Air Room Air Room Air 06/16/24 11:47 Temperature 97.9 F Pulse Rate 74 Respiratory Rate 12 Blood Pressure 137/76 Pulse Oximetry 98 Oxygen Delivery Method Room Air BMI result Body Mass Index 33.0 Const General: cooperative, healthy appearing, no acute distress and anxious Orientation/consciousness: patient oriented x3 Limitations: no limitations HENMT Head: Yes normal to inspection and Yes atraumatic Ears: hearing grossly normal bilaterally General nose exam: Normal external nose present Face and sinus: Yes normal facial exam Throat: Yes posterior oropharynx normal, Yes tonsils normal, Yes uvula midline, No peritonsillar mass, No uvula laterally displaced and No uvular edema Eyes General: appearance normal, both eyes and all related structures EOM: EOMs intact bilaterally Neck Neck: Yes normal visual inspection and Yes no meningeal signs Resp Effort & Inspection: normal respiratory effort and no respiratory distress Auscultation: clear to auscultation bilaterally and no wheezes Cardio Rate: regular rate Heart sounds: S1 normal heart sound present and S2 normal heart sound present GI Inspection: Yes normal to inspection Palpation (GI): Soft to palpation, nontender, no guarding and not rigid General: Yes no CVA tenderness Back/Spine/Pelvis Back: no CVA tenderness Skin Rashes: no rashes Wounds: no wounds Neuro General: patient oriented x3, tone normal and no meningeal signs Cranial nerves: Yes CN's II-XII intact bilaterally Gait exam (Neuro): Normal gait present Extrem General: Yes normal to inspection Course Course Course Narrative: -no leukocytosis. Potassium 3.1 > p.o. repletion given -troponin negative -TSH elevated to 8.5, free T4 WNL >> this was discussed with patient, recommended close endocrinology follow-up -UA negative > Mounjaro is prescribed by patient's manager equipment. Recommended close follow-up, and call the office today. Recommended discontinuing medication until she is evaluated by her specialist. Results discussed with patient including worrisome signs and symptoms and strict return precautions, and when to return to the emergency department. They verbalized understanding and feel safe for discharge at this time. Medications Administered Discontinued Medications Generic Name Dose Route Start Last Admin Trade Name Freq PRN Reason Stop Dose Admin Diphenhydramine HCl 50 mg 06/16/24 06:55 06/16/24 07:13 Diphenhydramine Hcl 25 Mg Capsule PO 06/16/24 06:56 50 mg ONCE ONE Administration Potassium Chloride 60 meq 06/16/24 08:00 06/16/24 08:12 Potassium Chloride Packet 20 Meq Packet PO 06/16/24 08:01 60 meq ONCE ONE Administration Medical Decision Making Medical Decision Making MDM Narrative: 53-year-old female with a past medical history of HLD, HTN, GERD, PVCs, presenting to the ED complaining of palpitations, lightheadedness, presyncope, & full body burning s/p taking Mounjaro for the 1st time last night around 23:00. On exam vital signs stable, NAD, nontoxic appearing, mildly anxious, exam otherwise benign, no appreciable rash. Concern for adverse reaction to new medication vs anxiety. Lower suspicion for pancreatitis, ACS, PE, gallbladder disease/CARLA Plan: EKG, labs, p.o. Benadryl, re-evaluate Please refer to course for remaining clinical decision making, interpretation of labs/imaging results, and discussions with consultants and/or family members. Differential Diagnosis Differential Diagnoses: The differential diagnosis associated with the presentation includes As above Admission/Observation Consideration of admission/observation: Escalation of care including admission/observation considered Lab Data [facility] Lab Attestation statement: I reviewed the patient's lab results. 06/16/24 06:42 06/16/24 06:42 Labs: Lab Results 06/16/24 06/16/24 Range/Units 06:42 10:41 WBC 6.4 (4.8-10.8) X10*3/uL RBC 4.59 (4.20-5.50) X10*6/uL Hgb 13.1 (12.0-16.0) g/dl Hct 38.2 (37.0-47.0) % MCV 83.2 (80.0-98.0) fL MCH 28.5 (27.0-33.0) pg MCHC 34.3 (31.0-35.0) g/dl RDW 15.3 (11.0-16.0) % Plt Count 402 H (160-400) X10*3/uL MPV 10.2 (9.4-12.3) fL Immature Gran % (Auto) 0.2 (0.0-0.4) % Neut % (Auto) 71.4 (45-73) % Lymph % (Auto) 20.3 (20-40) % [place] % (Auto) 6.7 (2-11) % Eos % (Auto) 0.8 (0-4) % Baso % (Auto) 0.6 (0-2) % Lymph # (Auto) 1.3 (1.2-4.9) X10*3/uL [place] # (Auto) 0.4 (0.1-1.2) X10*3/uL Eos # (Auto) 0.1 (0.0-0.4) X10*3/uL Baso # (Auto) 0.0 (0.0-0.2) X10*3/uL Abs Immat Gran (auto) 0.01 (0.00-0.03) X10*3/uL Absolute Neuts (auto) 4.6 (2.0-8.3) x10*3/uL Absolute Nucleated RBC 0.000 (0.0-0.012) X10*3/uL Nucleated RBC % (auto) 0.0 (0.0-0.2) /100WBC Sodium 139 (135-145) mmol/L Potassium 3.1 L (3.3-5.1) mmol/L Chloride 103 (96-108) mmol/L Carbon Dioxide 26 (22-29) mmol/L Anion Gap 13 (12-20) BUN 16 (9-16) mg/dL Creatinine 0.89 (0.5-1.4) mg/dL Estim Creat Clear Calc 67.7 Estimated GFR > 60 Random Glucose 98 (60-115) mg/dL Calcium 9.5 D (8.4-10.2) mg/dL Magnesium 2.1 (1.6-2.6) mg/dL Total Bilirubin 0.3 (0.0-1.0) mg/dL AST 17 (5-31) U/L ALT 16 (0-31) U/L Alkaline Phosphatase 73 (39-117) U/L Troponin I High Sens < 2.7 (<3.5-17.0) ng/L Total Protein 7.1 (6.5-8.0) g/dL Albumin 3.7 (3.5-5.0) g/dL Lipase 13 (8-78) U/L TSH 8.50 H (0.32-4.0) uIU/mL Free T4 0.83 (0.71-1.85) ng/dL Urine Color Yellow Urine Appearance Cloudy Urine pH 8.5 (5.0-9.0) Ur Specific [place] 1.015 (1.005-1.025) Urine Protein Negative (Neg-Trace) mg/dL Urine Glucose (UA) Negative (Negative) mg/dL Urine Ketones Negative (Negative) mg/dL Urine Blood Negative (Negative) Urine Nitrite Negative (Negative) Ur Leukocyte Esterase Negative (Negative) Independent Interpretation I performed an independent interpretation of an: EKG (My interpretation EKG normal sinus rhythm rate of 73. Pr interval 148. QTC 480. No significant change when compared to prior. No STEMI) Radiology Impression Discussion of test interpretation with radiology: I have reviewed the radiologist's reading. Independent Historian Clinical information obtained from an independent historian. History obtained from or confirmed by: Spouse External Record Review External record reviewed: Inpatient record, Office record, Outpatient record, Prior outpatient labs, Prior outpatient radiology, Primary care record and Outside ED record Tests considered The following testing was considered but not selected: As above Prescription Management I considered prescription management with: Other Chronic Conditions Patient?s care impacted by: Other Discharge Plan Discharge Clinical Impression: Adverse reaction to drug Patient Disposition: Home, Self-Care Additional Instructions: Your blood work is reassuring. Your TSH, thyroid level was elevated however the free T4 was within normal limits. Please discuss with your manager equipment. Please discontinue your new medication until you follow-up with her manager equipment, as we are worried this was an adverse reaction to this medicine If you develop chest pain, shortness breath or weakness return to the emergency department Prescriptions: No Action potassium chloride 20 mEq packet 20 meq PO DAILY 7 Days Qty: 7 0RF furosemide [Lasix] 20 mg tablet 20 mg PO DAILY Qty: 3 0RF potassium chloride 20 mEq packet 20 meq PO DAILY 5 Days Qty: 30 0RF [place] [facility] [place] Group] Physician,Unknown J [Primary Care Provider] - Stand Alone Forms: Work/School Release Interventions: ED Discharge Assessment Last Done: 06/16/24 11:47 Discharge Date/Time: 06/16/24 12:00 Print Language: Martiniquais
[2024-06-16 07:03] LABS: Alanine Aminotransferase 16 U/L (0-31); Albumin Level 3.7 g/dL (3.5-5.0); Alkaline Phosphatase 73 U/L (39-117); Anion Gap 13 (12-20); Aspartate Amino Transferase 17 U/L (5-31); Bilirubin Total 0.3 mg/dL (0.0-1.0); Blood Urea Nitrogen 16 mg/dL (9-16); Calcium 9.5 mg/dL (8.4-10.2); Carbon Dioxide 26 mmol/L (22-29); Chloride 103 mmol/L (96-108); Creatinine Clr Calc Pharmacy 67.7; Estimated Glomerular Filt Rate > 60; Glucose Random 98 mg/dL (60-115); Potassium 3.1 mmol/L (3.3-5.1); Sodium 139 mmol/L (135-145); Total Protein 7.1 g/dL (6.5-8.0)
[2024-06-16] MEDS: diphenhydrAMINE HCL 25 MG CAPSULE 50 MG PO (07:13)
[2024-06-16 07:21] LABS: Troponin-I High Sensitivity < 2.7 ng/L (<3.5-17.0)
[2024-06-16 07:42] LABS: Magnesium 2.1 mg/dL (1.6-2.6)
[2024-06-16 07:53] LABS: Lipase 13 U/L (8-78)
[2024-06-16] MEDS: Potassium Chloride Packet 20 MEQ PACKET 60 MEQ PO (08:12)
[2024-06-16 08:17] VITALS: BP 127/67; PULSE 68; RESP 16; TEMP 36.4; O2SAT 97
--- NOTE | 2024-06-16 09:35 | PC.NURSE ---
initial interaction with patient arrives after waking up this morning and feeling dizziness and palpitations after starting a new weight loss medication last night, patient states she felt hot all over and pins and needles patient also states she felt like she was going to pass out. denies any chest pain, dizziness, nausea or vomiting. endorsing feeling better but exhausted at this time, NSR on the monitor with hr of 72. VSS at this time. patient resting on her side, callbell within reach. denies any abdominal pain or tenderness to palpation. call ruano placed within reach. awaiting results
[2024-06-16 10:20] VITALS: BP 137/76; PULSE 74; RESP 12; TEMP 36.6; O2SAT 98
[2024-06-16 10:47] LABS: Appearance Urine Cloudy; Color Urine Yellow; Glucose Urine UA Negative (Negative); Leukocyte Esterase Urine Negative (Negative); Nitrite Urine Negative (Negative); PH 8.5 (5.0-9.0); Specific Gravity - Urine 1.015 (1.005-1.025); Urine Blood Negative (Negative); Urine Ketones Negative (Negative); Urine Protein Negative (Neg-Trace)
[2024-06-16 11:33] LABS: Free T4 (Free Thyroxine) 0.83 ng/dL (0.71-1.85)
[2024-06-16 11:47] VITALS: BP 137/76; PULSE 74; RESP 12; TEMP 36.6; O2SAT 98
== END 2024-06-16 12:00 | disposition home or self-care (01) ==
PROVIDERS: Physician Assistant; Emergency Provider Emergency Medicine Emergency Medical Services
DX: R55 Syncope and collapse (principal); R42 Dizziness and giddiness; R00.2 Palpitations; I10 Essential (primary) hypertension; Z79.899 Other long term (current) drug therapy
CPT/HCPCS: 36415; 80053; 81003; 83690; 83735; 84439; 84443; 84484; 85025; 93005; 99283; 99284

== ENCOUNTER 2024-10-23 00:02 | Emergency (ER) | payer OTHER, SELFPAY ==
--- NOTE | ~2024-10-23 | CT_ITS ---
CLINICAL HISTORY: periumbillical pain CT abdomen and pelvis with contrast Comparison: None Findings: The lung bases are clear. The liver, gallbladder, spleen, pancreas, kidneys and adrenal glands are normal in appearance. Punctate nonobstructing stone in the superior pole of the right kidney. No bowel obstruction, pneumoperitoneum, or pneumatosis. Pelvic contents unremarkable. Normal appendix. Previous hysterectomy, however cervix remains. No acute fracture. IMPRESSION: No acute findings. This document has been electronically signed by: Jonnie Churchill MD on 10/23/2024 02:29:03
--- OUTSIDE RECORDS SUMMARY | 2024-10-23 00:05 | XMS_ITS | Data Portability ---
Author Organization PREETI See s, [address] Address [address] [place] [address] Care Team Providers Care Assistant Broker Name Role Phone [facility] Primary Care Provider Assessment No assessment recorded. Plan of Treatment Reminders Order Date Submit Date Provider Last Modified By Organization Details Last Modified Time Details Appointments None recorded. Lab SARS CoV 2 (COVID-19) Ag, QL, IA, upper respiratory specimen 2022 023 [email or web address] 5 _[facility], [address] [place] [address], [phone], 3 16:36:15 rapid flu (A+B) 2022 023 [email or web address] 5 _[facility], [address] [place] [address], [phone], 3 16:36:14 Referral emergency medicine referral 2022 023 [email or web address] [facility]), [address] [place], [address], 3 16:59:39 Procedures None recorded. Surgeries None recorded. Imaging electrocard iogram 2022 023 [email or web address] _[facility], [address] [place] [address], [phone], 3 16:59:38 Medication Orders Ciloxan 0.3 % eye drops 2023 024 [id number], [address] [facility] [place], [address], 13:06:28 Patient TargetsNo targets recorded. Patient Instructions Encounter Date Encounter Id Patient Instructions Last Modified By Organization Details Last Modified Time 04/30/2023 [id number] You have been advised to go to the Emergency Department for further evaluation. [facility] has been advised of your impending arrival. EMS transport has been arrange. [email or web address] Not available 04/30/2023 16:55:29 12/31/2023 [id number] [email or web address]: care instructions [email or web address] Not available 12/31/2023 13:06:26 Patient was evaluated by the Physician Outdoor Emergency Care Technician using AV technology. This type of exam does not replace a need for an in-person evaluation if symptoms worsen or do not improve after 24-48 hours. [email or web address] Not available 12/31/2023 13:01:04 Reason for Referral Emergency Medicine Referral for Chest pain chest pain last night. Abnormal ekg. Referring Physician: Princess Nelson, Urgent Care, Encounter Date: 04/30/2023 Results Created Date Observation Date Name Description Value Unit Range Abnormal Flag Note LastModifiedBy Organization Detail LastModifiedTime 04/30/2004/30/2023 rapid flu (A+B) Unknown Analyte Normal = Negati ve Not Available [facility] [address] [place] [address] [place], [address], 04/30/2023 14:56:33 04/30/20 23 04/30/2023 rapid flu (A+B) Unknown Analyte Normal = Negati ve Not Available [facility] [address] [place], [address], 04/30/2023 14:56:33 04/30/20 23 04/30/2023 rapid flu (A+B) Unknown Analyte negati ve Not Available [facility] [address] [place] [address] [place], [address], 04/30/2023 14:56:33 04/30/20 23 04/30/2023 rapid flu (A+B) Unknown Analyte negati ve Not Available [facility] [address], [place], [address], 04/30/2023 14:56:33 04/30/20 23 04/30/2023 SARS CoV 2 (COVI D-19) Ag, QL, IA, upper respi rator y speci men Unknown Analyte Normal = Negati ve Not Available [address] [place] [address], [place], [address], 04/30/2023 14:56:27 04/30/20 23 04/30/2023 SARS CoV 2 (COVI D-19) Ag, QL, IA, upper respi rator y speci men Unknown Analyte negati ve Not Available [address] [place] [address], [place], [address], 04/30/2023 14:56:27 04/30/20 23 04/30/2023 elect franko shawgr am No observ ation record ed. BINH [address] [place] [address], [place], [address], 04/30/2023 16:37:31 Result Notes None recorded. Problems Name Problem SNOMED Code Status Onset Date Resolution Date Notes Provider Name and Address Organization Details Recorded Time Thyroidecto my Active Amelia mcnair, PA - [facility] 3 14:50:35 Hypertensiv e disorder 36179163 Active Amelia mcnair, PA - [facility] 3 14:50:44 Bilateral conjunctivi tis 4464835265374 9103 Active 2023 PREETI WILL [address] [place], [address] , [place] - [facility] 4 13:04:12 Problem Notes None recorded. Procedures Surgical History Date Name Laterality Status Provider Name and Address Organization Details Recorded Time 12/31/19 24 Virtual Visit completed [facility] [place], [address], [place] - [facility] 12/31/2023 13:00:55 thyroidectomy completed Amelia Jeter PA - [facility] 04/30/2023 14:53:28 hysterectomy completed Amelialeonard Jeter PA - [facility] 04/30/2023 14:53:39 excision of cyst of breast completed Amelialeonard Jeter PA - [facility] 04/30/2023 14:54:15 Imaging Results Imaging Date Name Status LastModified by Organization Details LastModified Time 04/30/2023 electrocardiogram completed BINH [id number], [address], 04/30/2023 16:37:31 Procedure Notes None recorded. Medical Equipment None Reported. Allergies Allergen ID Allergen Name Allergen Category Reaction Reaction Severity Criticality Documentation Date Start Date Code Code System Note Provider Name and Address Organization Details Recorded Time 179591 Medicinal product containin g penicilli n and acting as antibacte rial agent (product) medicatio n Not available Not available Not available 04/30/2023 27824 05 SNOMED Amelia Jeter null, PA - [facility] 14:50:08 475482 latex environme nt,medica tion Not available Not available Not available 04/30/2023 65142 91 RxNorm Amelia mcnair, PA - [facility] 14:50:13 Medications Name Sig Start Date Stop Date Status Note LastModified by Organization Details LastModified Time d3-1000 25 mcg (1000 ut) caps 04/30 completed Not Available Not Available Not Available losartan 50 mg tablet TAKE 1 TABLET BY MOUTH EVERY DAY active Not Available Not Available No t Available cyclobenzap rine 10 mg tablet TAKE 1 TABLET BY MOUTH 3 TIMES A DAY 04/30 completed Not Available Not Available Not Available levothyroxi ne 137 mcg tablet TAKE 1 TABLET BY MOUTH EVERY DAY FOR 6 DAYS A WEEK, AND 1/2 OF A TAB ON SATURDAY active Not Available Not Available No t Available prednisone 10 mg tablet TAKE 4 TAB X2 DAYS, 3 TAB X 2 DAYS, 2 TAB X 2 DAYS, 1TAB X 2 DAYS 04/30 completed Not Available Not Available Not Available doxycycline hyclate 100 mg capsule TAKE 1 CAPSULE EVERY 12 HOURS FOR 10 DAYS,MAY TAKE WITH FOOD TO MINIMIZE ABDOMINAL DISCOMFOR TT 04/30 completed Not Available Not Available Not Available sucralfate 1 gram tablet TAKE 1 TABLET BY MOUTH TWICE A DAY 04/30 completed Not Available Not Available Not Available ondansetron HCl 4 mg tablet TAKE 1 TABLET BY MOUTH EVERY 8 HOURS X5 DAYS NEEDED FOR NAUSEA/VO MITING 04/30 completed Not Available Not Available Not Available famotidine 40 mg tablet TAKE 1 TABLET BY MOUTH EVERYDAY AT BEDTIME active Not Available Not Available No t Available prednisone 20 mg tablet TAKE 2 TABLETS BY MOUTH EVERY DAY FOR 5 DAYS 04/30 completed Not Available Not Available Not Available chlorthalid one 25 mg tablet TAKE 1 TABLET BY MOUTH EVERY DAY active Not Available Not Available No t Available Ciloxan 0.3 % eye drops Instill 1 drop every 6 hours by ophthalmi c route for 7 days. 2023 active Not Available Not Available Not Avai lable sulfamethox azole 800 mg-trimetho prim 160 mg tablet TAKE 1 TABLET BY MOUTH TWICE A DAY FOR 7 DAYS 04/30 completed Not Available Not Available Not Available doxycycline monohydrate 100 mg tablet TAKE 1 TABLET (ORAL) 2 TIMES PER DAY FOR 10 DAYS FOR INFECTION 04/30 completed Not Available Not Available Not Available estradiol 1 mg tablet TAKE 1 TABLET BY MOUTH EVERY DAY 04/30 completed Not Available Not Available Not Available levothyroxi ne 150 mcg tablet TAKE 1 TABLET BY MOUTH EVERY DAY 04/30 completed Not Available Not Available Not Available fluoxetine 10 mg capsule TAKE 1 CAPSULE BY MOUTH EVERY DAY 04/30 completed Not Available Not Available Not Available montelukast 10 mg tablet TAKE 1 TABLET BY MOUTH EVERY DAY 04/30 completed Not Available Not Available Not Available oxycodone 5 mg tablet TAKE 1 TABLET BY MOUTH EVERY 6 HOURS NEEDED FOR PAIN 04/30 completed Not Available Not Available Not Available Vitamin D3 25 mcg (1,000 unit) capsule TAKE 1 CAPSULE BY MOUTH EVERY DAY active Not Available Not Available No t Available rosuvastati n 20 mg tablet TAKE 1 TABLET BY MOUTH EVERY DAY active Not Available Not Available No t Available estradiol active Not Available Not Yuli ilable Not Available Vitals Date Recorded Body height Body mass index (BMI) Body weight Oxygen saturation Oxygen saturation in Arterial blood by Pulse oximetry Heart rate Respiratory rate Body temperature Systolic blood pressure Diastolic blood pressure Provider Name and Address Organization Details Last Updated DateTime 152.4 cm 32.8 kg/m2 33698.5 2 g 98 % 98 % 63 /min 16 /min 98.5 [degF] 128 mm[Hg] 83 mm[Hg] Amelia Jeter PA - [facility] 14:59:40 Date Recorded Body height Body mass index (BMI) Body weight Provider Name and Address Organization Details Last Updated DateTime 12/31/2023 152.4 cm 32.8 kg/m2 91561.52 g Ashley Baldwin PA [facility] 12/31/2023 12:52:56 Social History Question Answer Notes LastModified by Trenergiizat ion Details LastModified Time Tobacco Smoking Status Never Smoker Amelia mcnair, PA [facility] 04/30/2023 14:55:52 What Is Your Level Of Alcohol Consumption? None Information not available 04/30/2023 Have You Had Direct Contact, Or Contact During Intimacy, With Monkeypox Rash, Scabs, Or Body Fluids From A Person With Monkeypox? No Information not available 04/30/2023 What Was The Date Of Your Most Recent Tobacco Screening? 12/31/2023 [email or web address] Information not available 12/31/2023 Do You Use Any Illicit Or Recreational Drugs? No Information not available 04/30/2023 Have You Recently Traveled Abroad? No Information not available 04/30/2023 Sex: Unknown Functional Status None recorded. Mental Status None recorded. Family History Relationship Description Onset Age of this Age Resolved Age Notes LastModified by Organization Details LastModified Time Maternal Grandmother Diabetes mellitus nruszala Not available 2022 14:54:42 Maternal Aunt Diabetes mellitus nruszala Not available 2022 14:54:48 Maternal Aunt Malignant neoplastic disease nruszala Not available 2022 14:55:16 Mother Malignant neoplastic disease nruszala Not available 2022 14:55:13 Father Malignant neoplastic disease nruszala Not available 2022 14:55:18 Medical History No medical history recorded. Gynecological HistoryNo gynecological history recorded. Obstetrics History GPAL:G 0 P 0 0 0 0 Immunizations Vaccine Type Date Status Note Provider Nam e and Address Organization Details Recorded Time Influenza, split virus, quadrivalent, preservative 8 completed Ashley mcnair PA - [facility] 12/31/2023 12:49:50 Influenza, split virus, quadrivalent, preservative 9 completed Ashley mcnair PA - [facility] 12/31/2023 12:49:50 COVID-19, mRNA, LNP-S, PF, 100 mcg/0.5mL dose or 50 mcg/0.25mL dose completed Ashley mcnair PA - [facility] 12/31/2023 12:49:50 COVID-19, mRNA, LNP-S, PF, 100 mcg/0.5mL dose or 50 mcg/0.25mL dose completed Ashley mcnair PA - [facility] 12/31/2023 12:49:50 COVID-19, mRNA, LNP-S, PF, 100 mcg/0.5mL dose or 50 mcg/0.25mL dose completed Ashley mcnair PA - [facility] 12/31/2023 12:49:50 Past Encounters Encounter ID Performer Location Encounter Start Date Encounter Closed Date Diagnosis/Indication Diagnosis SNOMED-CT Code Diagnosis ICD10 Code [id number] [address] [address] 08/07/2022 09:22:28 08/07/2022 10:09:[id number] [address] 02/14/2022 16:47:54 02/14/2022 19:03:12 [id number] [address] [facility] [place] [address] 07/25/2022 12:13:48 07/25/2022 16:21:49 [id number] [address] [facility] [address] 10/29/2021 08:03:28 10/29/2021 08:52:19 [id number] Princess Nelson MD [address] [facility] [address] 04/30/2023 14:31:40 04/30/2023 16:59:38 Chest pain 17193545 R07.9 [id number] [facility]ETI WILL [address] [place] [address] 12/31/2023 12:44:20 12/31/2023 13:33:30 Bilateral conjunctivitis 4043497134 1522910 H10.9 Health Concerns Section Related Observation LastModified by Organization Detai ls LastModified Time None Recorded Concern Status LastModified by Organization Details LastModified Time None Recorded Advance Directives Directive None Recorded Payers Encounter Date Sequence Insurance Name Policy Number Policy Mahoney Covered Member ID Mahoney Member ID Guarantor Name 07/25/2022 1 [place] [facility] Leila Sanchez [id number] Leila Sanchez 08/07/2022 1 [place] [facility] Leila Sanchez [id number] Leila Sanchez 04/30/[address] [place] [address] [facility] (MEDICAID HMO) [id number] Leila Sanchez [id number] Leila Sanchez 12/31/2023 PROMPT PAY Daisy Sanchez Notes Date Note Type Note Provider Name and Address Organization Details Recorded Time 3 text/html FatigueReported bypatient.source of patient informationInformation obtained from patient; Patient arrived at Urgent Care ambulatory Quality:continuous Severity:moderate Duration:constant Timing:Constant since awakening this morning. Context:Episode of chest pain last night for one hour. Associated Symptoms:Profound weakness since awakening this morning with body aches.Notes:52 year old femal with hx HLD, HTN, hypothyroidism presenting for evaluation of profound weakness, fatigue and muscle aches with lightheadedness since awakening this morning. Last night around 12 midnight in bed she developed a 1 hour episode of chest tightness/pressure which resolved after she fell asleep. No radiation of the pain. No fever, chills, cough, sweats, palpitations, nausea, vomiting. She is a non-smoker. She has a family history of heart disease. One year ago she had a different kind of chest pain - sharp in nature that was diagnosed as costochondritis by her PCP. This pain was different. Princess Nelson MD [address] [facility] [place], [address], [place] - [facility] 04/30/2023 21:40:54 4 text/html Eye problemsReported bypatient.source of patient informationInformation obtained from patient; Patient arrived at Urgent Care ambulatory Location:right Eye Symptoms:no sensitivity to light;redness;itching Severity:mild Onset/Timindays Context:contact lens wearer; others with similar symptoms (-DENIES) Modifying Factors:Has had cornea scratch before and this doesn't feel like that at all.Notes:The patient does not have any pain or scratchy feeling in the eye. She states that the she wears contacts. She states that yesterday she woke up with red eye and she stated. Denies sore throat, ear pain, or runny nose. The patient states she has no sensitivity to light or FB sensation. She denies any discharge. She does report increased eyelid swelling today. No rash or vesicular region. No known exposures. Verified the Patient's Name and at the start of visit.Audio/Visual Technology was used and functioning properly.Patient (and Guardian) - verbally understands limitations of a medical exam using A/V Technology - understands alternative treatment would be to visit an on-site medical facility.The patient did confirm they are physically located in the state that I hold a valid medical license. PREETI WILL [address] [place], [address], [place] [facility] 12/31/2023 13:20:01 OBGyn Episode No OBEpisode recorded.
[2024-10-23 00:06] VITALS: BP 157/74; PULSE 78; RESP 18; TEMP 36.6; O2SAT 97; BMI 26.4
[2024-10-23 00:34] LABS: MANUAL DIFF FLAG NO
[2024-10-23 00:40] LABS: Basophils Percent Auto 0.5 % (0-2); Eosinophils Absolute Auto 0.4 X10*3/uL (0.0-0.4); Eosinophils Percent Auto 4.8 % (0-4); Hematocrit 40.6 % (37.0-47.0); Hemoglobin 13.6 g/dl (12.0-16.0); Imm Gran Abs Auto 0.02 X10*3/uL (0.00-0.03); Imm Gran Pct Auto 0.2 % (0.0-0.4); Lymphocytes Absolute Auto 2.2 X10*3/uL (1.2-4.9); Lymphocytes Percent Auto 26.1 % (20-40); Mean Corpuscular HGB Conc 33.5 g/dl (31.0-35.0); Mean Corpuscular Volume 83.5 fL (80.0-98.0); Mean Platelet Volume 11.4 fL (9.4-12.3); Monocytes Absolute Auto 0.5 X10*3/uL (0.1-1.2); Neutrophils Absolute Auto 5.2 x10*3/uL (2.0-8.3); Neutrophils Percent Auto 62.4 % (45-73); Platelet Count 323 X10*3/uL (160-400); Red Blood Count 4.86 X10*6/uL (4.20-5.50); Red Cell Distribution Width 14.8 % (11.0-16.0); White Blood Count 8.3 X10*3/uL (4.8-10.8)
[2024-10-23 00:55] LABS: Alanine Aminotransferase 12 U/L (0-31); Albumin Level 4.1 g/dL (3.5-5.0); Alkaline Phosphatase 68 U/L (39-117); Anion Gap 15 (12-20); Aspartate Amino Transferase 20 U/L (5-31); Bilirubin Total 0.4 mg/dL (0.0-1.0); Blood Urea Nitrogen 20 mg/dL (9-16); Calcium 9.1 mg/dL (8.4-10.2); Carbon Dioxide 25 mmol/L (22-29); Chloride 104 mmol/L (96-108); Creatinine Clr Calc Pharmacy 69.9; Estimated Glomerular Filt Rate > 60; Glucose Random 101 mg/dL (60-115); Potassium 2.8 mmol/L (3.3-5.1); Sodium 141 mmol/L (135-145); Total Protein 7.6 g/dL (6.5-8.0)
[2024-10-23 01:05] VITALS: BP 133/93; PULSE 78; RESP 25; O2SAT 100
[2024-10-23 01:12] LABS: Influenza A PCR NEGATIVE (Negative); Influenza B PCR NEGATIVE (Negative); Resp Syncy Virus RNA Qual PCR NEGATIVE (Negative); SARS COV2 PCR INHOUSE NEGATIVE (Negative)
--- NOTE | 2024-10-23 01:15 | ECG_ITS ---
Test Reason : abdominal pain Blood Pressure : / mmHG Vent. Rate : 075 BPM Atrial Rate : 075 BPM P-R Int : 144 ms QRS Dur : 082 ms QT Int : 426 ms P-R-T Axes : 053 -19 -07 degrees QTc Int : 475 ms Normal sinus rhythm Minimal voltage criteria for LVH, may be normal variant ( R in aVL ) Nonspecific ST abnormality Abnormal ECG When compared with ECG of 16-JUN-2024 06:58, No significant change was found Referred By: Generic ED Physician Electronically Signed By:BELÉN PERRY MD
--- NOTE | 2024-10-23 01:26 | ED_ITS ---
HPI - Nausea/Vomiting/Diarrhea General Chief complaint: Nausea/Vomiting/Diarrhea Stated complaint: n/v/d Time Seen by Provider: 10/23/24 01:20 Source: patient Mode of arrival: ambulatory Limitations: no limitations History of Present Illness ED Provider: Dr. Ann-Marie Brothers HPI Narrative: Patient comes to the emergency room complaining of 4 hours of periumbilical/epigastric pain. Patient states that she has been having nausea vomiting and diarrhea. Patient states that she has had issues in the past with vomiting and getting hypokalemic. Patient states that she has history of chronic constipation. Patient has never had any abdominal surgeries. Denies chest pain or shortness of breath, denies hematuria, dysuria or flank pain. Related Data Previous Rx's ?Medication ?Instructions ?Recorded potassium chloride 20 mEq oral 20 meq PO DAILY 7 days #7 ea 04/30/23 packet furosemide 20 mg tablet (Lasix) 20 mg PO DAILY #3 tabs 02/28/24 potassium chloride 20 mEq oral 20 meq PO DAILY 5 days #30 ea 02/28/24 packet Allergies Allergy/AdvReac Type Severity Reaction Status Date / Time latex Allergy Rash Verified 10/23/24 00:08 Penicillins Allergy Palpitation Verified 10/23/24 00:08 s Review of Systems 2 Review of Systems: Constitutional : No Weight loss, No Fever, No Chills, No Night Sweats, No Fatigue, No Malaise ENT/Mouth : No Hearing loss, No Ear Pain, No Nasal Congestion, No Sinus Pain, No Hoarseness, No sore throat, No Rhinorrhea, No Swallowing Difficulty Eyes: No Eye Pain, No Swelling, No Redness, No Foreign Body, No Discharge, No Vision Changes Cardiovascular : No Chest Pain, No SOB, No Dyspnea on Exertion, No Orthopnea, No Edema, No Palpitations Respiratory : No Cough, No Sputum, No Wheezing, No Smoke Exposure, No Dyspnea Gastrointestinal : Complaining of nausea and vomiting, complaining of periumbilical pain Genitourinary : no irregular bleeding, No Dysuria, No Urinary Frequency, No Hematuria, No Urinary Incontinence, No Urgency, No Flank Pain, No Urinary Flow Changes, No Hesitancy Musculoskeletal : No joint pain, No Myalgias, No Joint Swelling Skin : No Skin Lesions, No rash Neuro : No Weakness, No Numbness, No Paresthesias, No Loss of Consciousness, No Dizziness, No Headache Psych : No Anxiety/Panic, No Depression, No SI/HI/AH/VH, No Social Issues, Heme/Lymph: No Bruising, No Bleeding,No Lymphadenopathy Endocrine : No Polyuria, No Polydipsia, No Temperature Intolerance [facility] Past Medical History Medical History PVC (premature ventricular contraction) HTN (hypertension) GERD (gastroesophageal reflux disease) Hyperlipidemia Social History Social History Alcohol intake: never Patient Tobacco Use Status: Never used Tobacco Smoked in Last 30 Days: No Use of substances other than those prescribed or required for medical reasons: No Do you have a plan to hurt others: No Plan Patient : No Physical Exam 2 Vital Signs: Vital Signs: Last Vital Signs Temp 97.8 F 10/23/24 00:06 Pulse 78 10/23/24 01:05 Resp 18 10/23/24 01:44 BP 133/93 H 10/23/24 01:05 Pulse Ox 100 10/23/24 01:05 O2 Del Method Room Air 10/23/24 01:05 BMI result Body Mass Index 26.4 Const: Other: Appearance: Alert. Oriented X3. No acute distress. Eyes: Pupils equal, round and reactive to light. ENT: Pharynx normal. Neck: Normal inspection. Neck supple. No lymph nodes noted. No crepitus CVS: Normal heart rate and rhythm. Pulses normal. Normal S1 and S2 Respiratory: No respiratory distress. Breath sounds normal. No Wheezing. No rales Abdomen: Soft , mild tenderness to palpation in epigastric and periumbilical area. No rigidity. No distention. Skin: Skin warm and dry. Normal skin color. Normal skin turgor. Extremities: No lower extremity edema. No Lacerations. No Rash Neuro: Oriented X 3. No motor deficit. No sensory deficit. Moving all extremities. No slurred speech. CN 2 through 12 grossly intact Psych: calm, cooperative, normal affect Course Course Course Narrative: Patient receiving IV fluids, Zofran, morphine CT scan pending Medications Administered Generic Name Dose Route Start Last Admin Trade Name Freq PRN Reason Stop Dose Admin Sodium Chloride 1,000 mls @ 999 mls/hr 10/23/24 01:25 10/23/24 01:44 Ns IVCONT 10/23/24 02:25 999 mls/hr .Q1H1M ONE Administration Discontinued Medications Generic Name Dose Route Start Last Admin Trade Name Elena PRN Reason Stop Dose Admin Morphine Sulfate 4 mg 10/23/24 01:25 10/23/24 01:44 Morphine Sulfate 4 Mg/Ml Cartridge IVPUSH 10/23/24 01:26 4 mg ONCE ONE Administration Protocol Prochlorperazine Edisylate 10 mg 10/23/24 01:26 10/23/24 01:44 Prochlorperazine Edisylate 10 Mg/2 Ml Vial IVPUSH 10/23/24 01:27 10 mg ONCE ONE Administration Medical Decision Making Medical Decision Making [facility] Narrative: My interpretation of labs: Hematology within normal limits, white blood cell count normal, chemistry shows a potassium of 2.8. Patient receiving IV potassium, this time, patient to nauseous to tolerate p.o. potassium. Discussed with the patient that initially we will do IV potassium, then when she can tolerate p.o., we will switch to p.o. potassium. CT scan of the abdomen pending Sign-out given to my colleague Dr. Holden Differential Diagnosis Differential Diagnoses: The differential diagnosis associated with the presentation includes (Gastritis, pancreatitis, SBO, cholecystitis) Lab Data [facility] Lab Attestation statement: I reviewed the patient's lab results. 10/23/24 00:27 10/23/24 00:27 Labs: Lab Results 10/23/24 Range/Units 00:27 WBC 8.3 (4.8-10.8) X10*3/uL RBC 4.86 (4.20-5.50) X10*6/uL Hgb 13.6 (12.0-16.0) g/dl Hct 40.6 (37.0-47.0) % MCV 83.5 (80.0-98.0) fL MCH 28.0 (27.0-33.0) pg MCHC 33.5 (31.0-35.0) g/dl RDW 14.8 (11.0-16.0) % Plt Count 323 (160-400) X10*3/uL MPV 11.4 (9.4-12.3) fL Immature Gran % (Auto) 0.2 (0.0-0.4) % Neut % (Auto) 62.4 (45-73) % Lymph % (Auto) 26.1 (20-40) % Carson % (Auto) 6.0 (2-11) % Eos % (Auto) 4.8 H (0-4) % Baso % (Auto) 0.5 (0-2) % Lymph # (Auto) 2.2 (1.2-4.9) X10*3/uL Carson # (Auto) 0.5 (0.1-1.2) X10*3/uL Eos # (Auto) 0.4 (0.0-0.4) X10*3/uL Baso # (Auto) 0.0 (0.0-0.2) X10*3/uL Abs Immat Gran (auto) 0.02 (0.00-0.03) X10*3/uL Absolute Neuts (auto) 5.2 (2.0-8.3) x10*3/uL Absolute Nucleated RBC 0.000 (0.0-0.012) X10*3/uL Nucleated RBC % (auto) 0.0 (0.0-0.2) /100WBC Sodium 141 (135-145) mmol/L Potassium 2.8 L* (3.3-5.1) mmol/L Chloride 104 (96-108) mmol/L Carbon Dioxide 25 (22-29) mmol/L Anion Gap 15 (12-20) BUN 20 H (9-16) mg/dL Creatinine 0.77 (0.5-1.4) mg/dL Estim Creat Clear Calc 69.9 Estimated GFR > 60 Random Glucose 101 (60-115) mg/dL Calcium 9.1 (8.4-10.2) mg/dL Total Bilirubin 0.4 (0.0-1.0) mg/dL AST 20 (5-31) U/L ALT 12 (0-31) U/L Alkaline Phosphatase 68 (39-117) U/L Total Protein 7.6 (6.5-8.0) g/dL Albumin 4.1 (3.5-5.0) g/dL Lipase 31 (8-78) U/L Influenza Type A (PCR) NEGATIVE (Negative) Influenza Type B (PCR) NEGATIVE (Negative) RSV RNA Qual (PCR) NEGATIVE (Negative) SARS-CoV-2 RNA (RT-PCR) NEGATIVE (Negative) Critical Care Time Critical Care Time Critical Care Time: Yes Total Critical Care Time: 45 Attestation: I have personally provided critical care time. Time includes review of lab data, radiology results, discussion with consultants, and monitoring for potential decompensation. Intervention performed as documented. Discharge Plan Discharge Clinical Impression: Abdominal pain, Nausea & vomiting Patient Disposition: Still a Patient Prescriptions: No Action potassium chloride 20 mEq packet 20 meq PO DAILY 7 Days Qty: 7 0RF furosemide [Lasix] 20 mg tablet 20 mg PO DAILY Qty: 3 0RF potassium chloride 20 mEq packet 20 meq PO DAILY 5 Days Qty: 30 0RF Print Language: Greenlandic
[2024-10-23 01:44] VITALS: RESP 18
[2024-10-23] MEDS: Morphine Sulfate 4 MG/ML CARTRIDGE IVPUSH (01:44)
[2024-10-23] MEDS: 0.9 % Sodium Chloride 1,000 ML 999 ML IVCONT (01:44)
[2024-10-23] MEDS: Prochlorperazine Edisylate 10 MG/2 ML VIAL IVPUSH (01:44)
[2024-10-23 01:48] LABS: Lipase 31 U/L (8-78)
[2024-10-23] MEDS: iohexoL 350 MG/ML 100 ML INFUS..BTL 85 ML IV (01:55)
[2024-10-23] MEDS: Potassium Chloride/H20 10 MEQ/100 ML PIGGYBACK 100 MEQ IV (02:00)
[2024-10-23] MEDS: Potassium Chloride Packet 20 MEQ PACKET 60 MEQ PO (02:03)
[2024-10-23 03:14] VITALS: BP 149/84; PULSE 79; RESP 10; O2SAT 100
[2024-10-23 04:32] LABS: Magnesium 1.8 mg/dL (1.6-2.6)
[2024-10-23 04:48] LABS: Anion Gap 11 (12-20); Carbon Dioxide 29 mmol/L (22-29); Chloride 106 mmol/L (96-108); Potassium 3.2 mmol/L (3.3-5.1); Sodium 143 mmol/L (135-145)
[2024-10-23 05:57] VITALS: BP 147/89; PULSE 72; RESP 13; TEMP 36.9; O2SAT 98
[2024-10-23 06:04] VITALS: BP 147/89; PULSE 72; RESP 13; TEMP 36.9; O2SAT 98
== END 2024-10-23 06:08 | disposition home or self-care (01) ==
PROVIDERS: Emergency Medicine; Emergency Provider Internal Medicine
DX: R10.33 Periumbilical pain (principal); R10.13 Epigastric pain; R11.2 Nausea with vomiting, unspecified; E87.6 Hypokalemia; Z03.818 Encounter for observation for suspected exposure to other biological agents ruled out
CPT/HCPCS: 0241U; 74177; 80051; 80053; 83690; 83735; 85025; 93000; 96361; 96374; 96375; 99285; J0737; J2270; J3480; Q9967

== ENCOUNTER → 2024-10-23 01:25 | Outpatient (BNV) | payer OTHER, SELFPAY | PROVIDERS: Emergency Provider Internal Medicine; Visit Provider Radiology Diagnostic Radiology | DX: R10.33 Periumbilical pain (principal) | CPT/HCPCS: 74177 ==

== ENCOUNTER 2025-07-02 18:16 | Emergency (ER) | payer OTHER, SELFPAY ==
--- NOTE | ~2025-07-02 | XR_ITS ---
CLINICAL HISTORY: chest pain 2 view chest x-ray Comparison: CR/SR - XR CHEST 2 VIEWS - 02/28/2024 12:42 AM EDT Findings: The lungs are clear. Normal size heart. Prominent perihilar markings. No acute fracture. IMPRESSION: 1. Prominent perihilar markings may represent pulmonary vascular congestion. This document has been electronically signed by: Federica Jean-Baptiste MD on 07/02/2025 20:12:31
--- NOTE | 2025-07-02 18:19 | ECG_ITS ---
Test Reason : CP Blood Pressure : */* mmHG Vent. Rate : 72 BPM Atrial Rate : 72 BPM P-R Int : 156 ms QRS Dur : 86 ms QT Int : 412 ms P-R-T Axes : 44 -22 26 degrees QTcB Int : 451 ms Normal sinus rhythm Minimal voltage criteria for LVH, may be normal variant ( R in aVL ) Borderline ECG When compared with ECG of 23-Oct-2024 01:19, Nonspecific T wave abnormality has replaced inverted T waves in Inferior leads Referred By: Generic ED Physician Electronically Signed By: BELÉN PERRY MD
[2025-07-02 18:49] VITALS: BP 174/73; PULSE 71; RESP 18; TEMP 36.8; O2SAT 99; BMI 29.4
--- NOTE | 2025-07-02 18:49 | ED.GENADULT ---
HPI - General Adult General Chief complaint: Chest Pain Stated complaint: Chest pain Time Seen by Provider: 07/02/25 20:05 Source: patient Mode of arrival: ambulatory Limitations: no limitations History of Present Illness ED Provider: Magdy ÁLVAREZ HPI narrative: The patient is a 54-year-old female presenting to the ED reporting she was at rest today when she developed left sternal border chest pain gradually over proximally 15 minutes. Patient reports pain radiate into her back and was mildly increased with deep respiration, denies associated nausea, vomiting, diaphoresis, shortness of breath, dizziness, near-syncope, or syncope. The patient reports history of PVCs, denies history of PE or recent travel, denies any lower extremity complaints. The patient denies history of CAD or previous catheterizations. Patient denies any recent sick contacts or trauma. Related Data Previous Rx's ?Medication ?Instructions ?Recorded potassium chloride 20 mEq oral 20 meq PO DAILY 7 days #7 ea 04/30/23 packet furosemide 20 mg tablet (Lasix) 20 mg PO DAILY #3 tabs 02/28/24 potassium chloride 20 mEq oral 20 meq PO DAILY 5 days #30 ea 02/28/24 packet ondansetron 4 mg disintegrating 4 mg PO Q6-8H PRN nausea and 10/23/24 tablet vomiting #7 tabs potassium chloride 20 mEq 20 meq PO DAILY #30 tabs 10/23/24 tablet,extended release Allergies Allergy/AdvReac Type Severity Reaction Status Date / Time latex Allergy Rash Verified 07/02/25 18:51 Penicillins Allergy Palpitation Verified 07/02/25 18:51 s Review of Systems Review of Systems: Yes all other systems are reviewed and are negative [facility] Past Medical History Medical History PVC (premature ventricular contraction) HTN (hypertension) GERD (gastroesophageal reflux disease) Hyperlipidemia Social History Social History (System 01/21/25 @ 13:35 by Beckie Lara) Alcohol intake: never Patient Tobacco Use Status: Never used Tobacco Smoked in Last 30 Days: No Use of substances other than those prescribed or required for medical reasons: No Advance Directives: No Advance Directives Information Provided: No Patient : No Physical Exam ED Vital Signs: Vital Signs - 24 hr 07/02/25 18:49 07/02/25 20:00 Temperature 98.3 F 98.5 F Pulse Rate 71 67 Respiratory Rate 18 16 Blood Pressure 174/73 H 154/87 H Pulse Oximetry 99 100 Oxygen Delivery Method Room Air Room Air BMI result Body Mass Index 29.4 CONSTITUTIONAL: The patient appears non-toxic, well nourished and in no acute distress. Vital signs as documented. HEAD: Atraumatic, normocephalic. EYES: EOMs grossly intact, pupils equal, conjunctiva clear, no exudate. ENT: Nares patent, no discharge. Airway patent, no audible stridor, visible mucosa is pink and moist without noted lesions. NECK: Trachea is midline, no obvious masses or gross abnormalities. CHEST: Symmetric movement, normal appearance. Palpation of the left sternum partially reproduces the patient's pain. LUNGS: LS present and CTAB, no w/r/r. Non-labored work of breathing. CARDIAC: Regular Rhythm, S1/S2 appreciated, no murmurs, rubs or gallops. ABDOMEN: Abdomen soft and non-tender x4 quadrants, no palpable masses or organomegaly. : Deferred. EXTREMITIES: Normal tone, moves all extremities spontaneously without reported pain. No obvious acute injury or deformity noted. NEURO: Alert and oriented x3, CN II-XII appear grossly intact. Cerebellar Functioning grossly intact. No obvious sensory or motor deficits. Speech clear and appropriate. PSYCH: normal affect, appropriate eye contact, fluid speech, with appropriate response to questioning. No reported suicidality or homicidality. SKIN: Warm, dry, color appropriate, normal turgor. No rashes noted. Course Course Course Narrative: Rapid medical examination performed in triage by Dianna Duvall PA-C. Patient is a 54 year old assigned female at presenting to the emergency department with chest pain that goes into her back. Patient states she was waiting for her child at therapy when she began to have chest pain that radiated into her back. Detailed physical exam and review of systems are deferred to the primary care physician. EKG, labs, imaging, and swabs ordered. Patient placed back in the waiting room pending room availability and results. Medical Decision Making Medical Decision Making [facility] Narrative: 9:06 PM 07/02/2025 (Alisha ÁLVAREZ): The patient is a 54-year-old female presenting to the ED for evaluation of left sternal chest pain which began at rest earlier today, patient reports pain radiated to the back and was worse with deep respiration. Patient reports symptoms have since improved however pain is partially reproducible with palpation of the sternum. The patient in the ED is well-appearing, exam is otherwise benign, no tachycardia, tachypnea, hypoxia, or fever. The patient's laboratory evaluation shows no leukocytosis, anemia, significant CARLA, or electrolyte abnormality. EKG is nonischemic, initial troponin is negative, viral swabs are negative. Chest x-ray shows prominent perihilar markings but no focal consolidation. The patient is PERC negative except for age. We will obtain repeat troponin and a D-dimer at approximately 21:30 hours. Pending unremarkable repeat troponin and negative D-dimer the patient will be discharged with outpatient follow up. 9:57 PM 07/02/2025 (Alisha ÁLVAREZ): Patient's D-dimer and repeat troponin are both unremarkable. Patient will be treated with Tylenol, ibuprofen, lidocaine patch, and discharged to follow up with PCP. Admission/Observation Consideration of admission/observation: Escalation of care including admission/observation considered Lab Data MDM Lab Attestation statement: I reviewed the patient's lab results. 07/02/25 19:25 07/02/25 19:25 Labs: Lab Results 07/02/25 07/02/25 Range/Units 19:25 21:19 WBC 7.0 (4.8-10.8) X10*3/uL RBC 4.12 L (4.20-5.50) X10*6/uL Hgb 12.0 (12.0-16.0) g/dl Hct 35.8 L (37.0-47.0) % MCV 86.9 (80.0-98.0) fL MCH 29.1 (27.0-33.0) pg MCHC 33.5 (31.0-35.0) g/dl RDW 14.9 (11.0-16.0) % Plt Count 302 (160-400) X10*3/uL MPV 10.7 (9.4-12.3) fL Immature Gran % (Auto) 0.3 (0.0-0.4) % Neut % (Auto) 59.2 (45-73) % Lymph % (Auto) 30.1 (20-40) % [place] % (Auto) 8.4 (2-11) % Eos % (Auto) 1.4 (0-4) % Baso % (Auto) 0.6 (0-2) % Lymph # (Auto) 2.1 (1.2-4.9) X10*3/uL [place] # (Auto) 0.6 (0.1-1.2) X10*3/uL Eos # (Auto) 0.1 (0.0-0.4) X10*3/uL Baso # (Auto) 0.0 (0.0-0.2) X10*3/uL Abs Immat Gran (auto) 0.02 (0.00-0.03) X10*3/uL Absolute Neuts (auto) 4.2 (2.0-8.3) x10*3/uL Absolute Nucleated RBC 0.000 (0.0-0.012) X10*3/uL Nucleated RBC % (auto) 0.0 (0.0-0.2) /100WBC D-Dimer High Sensitivty < 150 NG/ML Sodium 146 H (135-145) mmol/L Potassium 3.8 (3.3-5.1) mmol/L Chloride 110 H (96-108) mmol/L Carbon Dioxide 29 (22-29) mmol/L Anion Gap 11 L (12-20) BUN 15 (9-16) mg/dL Creatinine 0.76 (0.5-1.4) mg/dL Estim Creat Clear Calc 73.7 Estimated GFR > 60 Random Glucose 96 (60-115) mg/dL Calcium 8.5 D (8.4-10.2) mg/dL Magnesium 2.0 (1.6-2.6) mg/dL Total Bilirubin 0.2 (0.0-1.0) mg/dL AST 13 (5-31) U/L ALT 14 (0-31) U/L Alkaline Phosphatase 62 (39-117) U/L Troponin I High Sens < 2.7 < 2.7 (<3.5-17.0) ng/L Total Protein 7.0 (6.5-8.0) g/dL Albumin 3.9 (3.5-5.0) g/dL COVID-19 (JESUS) Negative (Negative) COVID-19 Clin Com See Note Influenza Type A (MARY) Negative (Negative) Influenza Type B (MARY) Negative (Negative) Influenza A & B Note See Note Independent Interpretation I performed an independent interpretation of an: EKG (EKG shows sinus rhythm with a rate of 72, no evidence of acute ischemia, no ST elevation, no ectopy. QTC 451. Compared to previous on 10/23/2024 previously noted inverted T-waves have resolved.) Radiology Impression Discussion of test interpretation with radiology: I have reviewed the radiologist's reading. Radiologist Impression: CLINICAL HISTORY: chest pain 2 view chest x-ray Comparison: CR/SR - XR CHEST 2 VIEWS - 02/28/2024 12:42 AM EDT Findings: The lungs are clear. Normal size heart. Prominent perihilar markings. No acute fracture. IMPRESSION: 1. Prominent perihilar markings may represent pulmonary vascular congestion. This document has been electronically signed by: Federica Jean-Baptiste MD on 07/02/2025 20:12:31 External Record Review External record reviewed: Outpatient record and Prior outpatient labs Prescription Management I considered prescription management with: Pain Medication Discharge Plan Discharge Clinical Impression: Atypical chest pain Patient Disposition: Home, Self-Care Instructions: Noncardiac Chest Pain (ED) Additional Instructions: Thank you for choosing [facility]'s Emergency Department for your care today. Thankfully your laboratory evaluation, EKG, chest x-ray, and exam today are reassuring, there was no evidence of any acute cardiac, pulmonary, infectious, coagulopathic (blood clot), metabolic, or other dangerous cause for your symptoms. The exact cause of your symptoms is not entirely clear, however at this time there is no indication for admission to the hospital or continued ED observation, and it is safe to discharge you home. You may take alternating (staggered) doses of ibuprofen 600mg and Tylenol 1000mg every 4 hours as needed for any additional pain. Please stay well hydrated and get plenty of rest. We have treated you with a lidocaine patch, if you find this provides you significant relief additional patches can be purchased at any local pharmacy without a prescription. Please follow up with your primary care physician for re-evaluation, additional management of your symptoms, and continued preventative care. If you do not have a primary care physician, please call the [facility] at [phone] to establish a new primary care physician. While waiting to establish your new primary care physician, you can call our Walk[facility]in [facility] at [phone] for non-emergency needs. Please return to the emergency department if you develop a severe or sudden change in your symptoms, a fever over 100.4 that does not improve with Tylenol or Ibuprofen, recurrent vomiting, or any other new or worsening symptoms or concerns. Prescriptions: No Action potassium chloride 20 mEq packet 20 meq PO DAILY 7 Days Qty: 7 0RF furosemide [Lasix] 20 mg tablet 20 mg PO DAILY Qty: 3 0RF potassium chloride 20 mEq packet 20 meq PO DAILY 5 Days Qty: 30 0RF potassium chloride 20 mEq tablet extended release 20 meq PO DAILY Qty: 30 0RF ondansetron 4 mg tablet,disintegrating 4 mg PO Q6-8H PRN (Reason: nausea and vomiting) Qty: 7 0RF Referrals: Ijeoma Lim MD [Primary Care Provider, Internal Medicine] Clinical Impression: Atypical chest pain Print Language: Japanese
--- OUTSIDE RECORDS SUMMARY | 2025-07-02 19:27 | XMS_ITS | Encounter Summary ---
Author Organization [facility] Address [address] [place] [address] Phone Care Team Providers Care Balcony Worker Name Role Phone Ijeoma Lim MD Primary Care Provider [phone] Encounter Details Date Type Department Care Team (Late st Contact Info) Description 04/27/2025 Procedure Pass OR Admitting Dept - Virtual Department [address] [place] [address] Social History Tobacco Use Types Packs/Day Years Used Date Smoking Tobacco: Never Smokeless Tobacco: Never Alcohol Use Standard Drinks/Week Comments Never 0 (1 standard drink = 0.6 oz pur e alcohol) Education Answer Date Recorded Are you interested in more education? Not on rene e 10/02/2023 Are you concerned about learning? Not on file 10/02/2023 No 10/02/2023 No 10/02/2023 Digital Access Answer Date Recorded No 10/02/2023 No 10/02/2023 Reliable internet access at home? Not on file 10/02/2023 Device with a working camera? Not on file Intimate Partner Violence Answer Date R ecorded Are you denied basic needs s uch as food, clothing, or medical care? No 04/27/2025 In the past 12 months have y ou been in a relationship with a person who hurts, threatens, or tries to control you? No 04/27/2025 Are you denied basic needs s uch as food, clothing, or medical care? No 04/27/2025 In the past 12 months have y ou been in a relationship with a person who hurts, threatens, or tries to control you? No 04/27/2025 Comments No Sex and Gender Information Value Date Recorded Sex Assigned at Not on file Legal Sex Female 4:31 PM EST Gender Identity Not on file Sexual Orientation Not on file documented as of this encounter Plan of Treatment Upcoming Encounters Date Type Department Care Team (Late st Contact Info) Description 07/27/2025 8:30 AM EDT Office Visit [facility] [address] [place] [address] Amelia Heck PA-C [address] [address] [email or web address] documented as of this encounter Visit Diagnoses Not on filedocumented in this encounter Care Teams Balcony Worker Relationship Specialty Start Date End Date Ijeoma Lim MD [id number] [place] [address] PCP - General Internal Medicine 10/02/23 documented as of this encounter Additional Source Comments The information contained in this document represents components of the legal health record. It is not the complete legal health record.[facility]
--- OUTSIDE RECORDS SUMMARY | 2025-07-02 19:27 | XMS_ITS | Clinical Summary ---
Author Organization [facility] Address [address] [place] [id number] Phone Care Team Providers Care Liaison Inspection Laboratory Assistant Name Role Phone Ijeoma Lim MD Primary Care Provider [phone] Allergies Active Allergy Reactions Criticality Noted Date Comments Latex Itching,Other (See Comments) 11/30/2024 Other Reaction(s): RASH, ÁLVAREZ AND ITCHES Penicillin Itching,Palpitations ,Jed h Low 08/05/2012 Other Reaction(s): ITCHY Medications losartan (COZAAR) 100 MG tablet Take 100 mg by mouth daily. Active levothyroxine (SYNTHROID, LEVOTHROID) 137 MCG tablet Take 137 mcg by mouth every morning. Active estradioL (ESTRACE) 1 MG tablet Take 1 mg by mouth daily. Active omeprazole (PRILOSEC) 40 MG capsule Take 40 mg by mouth daily. Active rosuvastatin (CRESTOR) 20 MG tablet Take 20 mg by mouth daily. Active cholecalciferol (VITAMIN D3) 25 MCG (1,000 unit) tablet Take 1,000 Units by mouth daily. Active WEGOVY 0.5 mg/0.5 mL subcutaneous injection Inject 0.5 mg under the skin. 04/20/2025 Active albuterol (ACCUNEB) 1.25 mg/3 mL nebulizer solution Inhale 1.25 mg into the lungs as needed. 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 04/26/2025 Encounters Date Type Department Care Team Description 06/01/2025 1:00 PM EDT Office Visit [facility] [address] [place] [address] Amelia Heck PA-C Aftercare following surgery of the skin or subcutaneous tissue (Primary Dx) 05/28/2025 Telephone [facility] [address] [place] [address] Wen Obando CMA Post-op 05/17/2025 Telephone [facility] [address] [place] [address] Wen Obando CMA Post-op 05/10/2025 11:30 AM EDT Office Visit [facility] [address] [place] [address] Amelia Heck PA-C Aftercare following surgery of the skin or subcutaneous tissue (Primary Dx); Encounter for removal of sutures 05/03/2025 11:00 AM EDT Office Visit [facility] [address] [place] [address] Amelia Heck PA-C Aftercare following surgery of the skin or subcutaneous tissue (Primary Dx); Encounter for change or removal of drains 04/29/2025 Telephone [facility] [address] [place] [address] Deb Kwan MA 04/28/2025 Telephone [facility] [address] [place] [address] Deb Kwan MA 04/27/2025 7:30 AM EDT - 04/27/2025 11:20 AM EDT Surgery OR Admitting Dept - Virtual Department [address] [place] [phone] Dmitri Ortiz MD REDUCTION BREAST 04/27/2025 7:28 AM EDT Anesthesia Event OR Admitting Dept - Virtual Department [address] [place] [phone] Nevin Antonio MD Gerlach, María Turner MD 04/27/2025 6:10 AM EDT - 04/27/2025 2:41 PM EDT Hospital Encounter OR Admitting Dept - Virtual Department [address] [place] [phone] Dmitri Ortiz MD Discharge Disposition: Home or Self Care 04/27/2025 Procedure Pass OR Admitting Dept - Virtual Department [address] [place] [address] 04/26/2025 8:00 AM EDT Pre-Admission Testing Pre Procedure Evaluation [address] [place] [phone] Dmitri Ortiz MD 04/26/2025 Orders Only [facility] [address] [place] [address] Dmitri Ortiz MD 04/24/2025 Orders Only [facility] Health Info Management Virtual Department [address] [place] [address] Kamille Mckeon MD 04/12/2025 9:00 AM EDT Telemedicine - audio only [facility] [address] [place] [address] Amelia Heck PA-C Breast hypertrophy in female (Primary Dx) from Last 3 Months Family History Medical History Relation Comments Hypertension Father Thyroid cancer Father Lung cancer Mother Relation Status Comments Father Alive Mother Social History Tobacco Use Types Packs/Day Years Used Date Smoking Tobacco: Never Smokeless Tobacco: Never Tobacco Cessation:Counseling Given: Not Answered Alcohol Use Standard Drinks/Week Comments Never 0 [...] on file Sexual Orientation Not on file Last Filed Vital Signs Vital Sign Reading Time Taken Comments Blood Pressure 129/81 05/10/2025 11:46 AM EDT Pulse 74 05/10/2025 11:46 AM EDT Temperature 36 C (96.8 F) 04/27/2025 11:13 AM EDT Respiratory Rate 13 04/27/2025 12:00 PM EDT Oxygen Saturation 99% 04/27/2025 2:15 PM EDT Inhaled Oxygen Concentration - - Weight 64.7 kg (142 lb 9.6 oz) 05/10/2025 11:46 AM EDT Height 149.9 cm (4' 11 ) 04/27/2025 6:26 AM EDT Body Mass Index 28.8 04/27/2025 6:26 AM EDT Plan of Treatment Upcoming Encounters Date Type Department Care Team (Late st Contact Info) Description 07/27/2025 8:30 AM EDT Office Visit [facility] [address] [place] [address] Amelia Heck PA-C [address] [place] [address], [address] [place] [address] Health Maintenance Due Date Last Done Comments Adult Td,Tdap Booster 1970 CREATININE LEVEL 1970 LIPID PANEL 1971 POTASSIUM LEVEL 1971 TSH LEVEL 1971 DEPRESSION SCREENING 1983 HEPATITIS C SCREENING 12/21/1989 HIV ONE-TIME SCREENING (18-6 5 YEARS) 12/21/1989 PNEUMOCOCCAL VACCINES (50+ years) (1 of 2 - PCV) 12/21/1990 ZOSTER VACCINES (1 of 2) 12/21/1990 SCREENING FOR DIABETES 12/21/2006 MAMMOGRAM 2011 COLOGUARD 12/21/2016 COLONOSCOPY 12/21/2016 COLORECTAL CANCER SCREENING 12/21/2016 FIT TEST 12/21/2016 FOBT 12/21/2016 SIGMOIDOSCOPY 12/21/2016 VIRTUAL COLONOSCOPY 12/21/2016 INFLUENZA VACCINE (#1) 2025 , 09/02/2019, 07/25/2018 COVID-19 VACCINE (2024-2 6 season) 2025 09/01/2021, 11/24/2020, 10/27/2020 BLOOD PRESSURE 11/10/2025 05/10/2025 SMOKING STATUS SCREENING (On ce After 26 Yrs) Completed 05/10/2025 HEPATITIS A VACCINES Aged Out No long er eligible based on patient's age to complete this topic HIB VACCINES Aged Out No longer eligi ble based on patient's age to complete this topic MENINGOCOCCAL VACCINES (ACWY) Aged Out No longer eligible based on patient's age to complete this topic MENINGOCOCCAL VACCINES (B) Aged Out N o longer eligible based on patient's age to complete this topic Medical Devices Not on file Procedures Procedure Name Priority Date/Time Associated Diagnosis Comments AIRWAY PLACEMENT Routine 04/27/2025 7:41 AM EDT ND BREAST REDUCTION 04/27/2025 7 :33 AM EDT Breast hypertrophy ANATOMIC PATHOLOGY Routine 04/27/2025 12 :00 AM EDT from Last 3 Months Results * ANES ETT DOUBLE LUMEN - AIRWAY LDA (04/27/2025 7:41 AM EDT) Narrative Nevin Antonio MD - 04/27/2025 7:41 AM EDT Nevin Antonio MD 04/27/2025 7:53 AM Airway Placement Procedure Note: Patient was not difficult to intubate. Procedure performed by: anesthesiologist Anesthesiologist: Nevin Antonio MD Airway procedure initiated at:04/27/2025 7:41 AM and ended at. Personal Protective Equipment: Mask: surgical mask Eye Protection: eye shield Gloves: gloves Mask Ventilation: Quality: easy Airway Placement: Technique: direct laryngoscopy Rapid sequence induction: no Details: Blade type: Mac Blade size: 3 Direct view: grade 2 Number of attempts: 1 ETT type: cuffed ETT size: 7.0 ETT depth at teeth: 23 ETT cuff inflation volume: 4 Tube position confirmed by: EtCO2 and bilateral breath sounds Bite Block: soft and molar Bite Block placement time: 04/27/2025 7:41 AM Outcomes: Evidence of dental injury? no Complications observed? no us Nevin Antonio MD ND ANESTHESIA Final Result * Anatomic Pathology (04/27/2025 12:00 AM EDT) 04/27/2025 04/27/2025 11: 54 AM EDT Narrative SEE NARRATIVE - 04/28/2025 12:37 [place] [address] Wiper Blender: Gus Vann MD Surgical Pathology Report FINAL PATHOLOGIC DIAGNOSIS: A. LEFT BREAST TISSUE, EXCISION (326 g): Benign breast tissue and unremarkable skin. B. RIGHT BREAST TISSUE, EXCISION (287 g): Benign breast tissue with focal microcalcifications and unremarkable skin. Electronically Signed Out By Ml Weiner MD By his/her signature above, the pathologist listed as making the Final Diagnosis certifies that he/she has personally reviewed this case and confirmed or corrected the diagnosis. CLINICAL HISTORY Breast hypertrophy SPECIMENS SUBMITTED: A: LEFT BREAST TISSUE B: RIGHT BREAST TISSUE GROSS DESCRIPTION A. LEFT BREAST TISSUE: Formalin, several fragments of adipose tissue and skin weighing in aggregate 326 g and measuring in aggregate 15 x 10 x 3.5 cm. The skin is blancas and no obvious lesions are grossly seen. Cut sections through the tissue shows predominantly fatty parenchyma. No mass lesions are grossly seen school admissions representative sections cassettes A1 and A2. B. RIGHT BREAST TISSUE: Formalin several fragments of fibroadipose tissue and skin measuring in aggregate 10 x 10 x 3.5 cm and weighing in aggregate 287 g. The skin is blancas and no obvious lesions are grossly seen. Cut sections reveal predominantly fatty parenchyma with focal areas of fibrosis but no mass lesion is grossly seen. Cleaning Crew Member sections cassettes B1 and B2 KHT 04/27/2025 Grossing Staff: JB Patient Name: GALE SANCHEZA : 1970 (Age: 54) Sex: F Institution: [facility] Location: [facility] Date of Operation: 04/27/2025 Date of Reported: 04/28/2025 12:37 Results To: Dmitri Ortiz MD, BA Ijeoma Lim MD us Dmitri Ortiz MD PATHOLOGY ORDERABLES Final Resul t SEE NARRATIVE from Last 3 Months Insurance [place] [address] [facility] [place], [place] [id number] [place] [address] [place] [address] [facility] [place] [address] [facility] [place] [address] [facility] HMO Advance Directives For more information, please contact: [phone] (9AM - 5PM [facility], Saturday-Saturday) * Full Code (Latest Code Status on File) Date Activated Date Inactivated Comments 04/27/2025 6:26 AM Question Answer Comments Code Status Confirmed With: Other (specify below ) Code Discussion Comments: periop Care Teams Liaison Inspection Laboratory Assistant Relationship Specialty Start Date End Date Ijeoma Lim MD [id number] [place] [address] PCP - General Internal Medicine 10/02/23 Additional Source Comments The information contained in this document represents components of the legal health record. It is not the complete legal health record.[facility]
--- OUTSIDE RECORDS SUMMARY | 2025-07-02 19:27 | XMS_ITS | Clinical Summary ---
Author Organization [facility] Address [address] [place] [address] Care Team Providers Care Impact Hammer Operator Name Role Phone Ijeoma Lim MD Primary Care Provider [phone] Surgical History Surgery Date Site/Laterality Comments CARPAL TUNNEL RELEASE PROCEDURE: HISTORICAL CARPAL TUNNEL REL OTHER SURGICAL HISTORY PROCEDURE: HISTORICAL SUBTOTAL THYROIDECTOMY HYSTERECTOMY PROCEDURE: HISTORICAL HYSTERECTOMY OTHER SURGICAL HISTORY PROCEDURE: ADDED FINGER RECONSTRUCTION SURGERY Medical History Medical History Date Comments Hypertension DX:Hypertension Mood disorder (CMS/HCC V24) DX:M ood disorder ([facility]) Class 1 obesity DX:Class 1 obesi ty Snoring DX:Snoring Social History Tobacco Use Types Packs/Day Years Used Date Smoking Tobacco: Never Smokeless Tobacco: Never Alcohol Use Standard Drinks/Week Comments Never 0 (1 standard drink = 0.6 oz pur e alcohol) Comments Unknown Sex and Gender Information Value Date Recorded Sex Assigned at Not on file Legal Sex Female 4:55 AM EST Gender Identity Not on file Sexual Orientation Not on file Obstetrics History Last Filed Vital Signs Vital Sign Reading Time Taken Comments Blood Pressure 150/84 02/21/2023 4:11 PM EDT Pulse 80 02/21/2023 4:11 PM EDT Temperature - - Respiratory Rate - - Oxygen Saturation - - Inhaled Oxygen Concentration - - Weight 76.7 kg (169 lb) 09/19/2023 4:01 PM EST Height 149.9 cm (4' 11 ) 02/21/2023 4:11 PM EDT Body Mass Index 34.13 02/21/2023 4:11 PM EDT Plan of Treatment Health Maintenance Due Date Last Done Comments Breast Cancer Screening 1970 DTaP,Tdap,and Td Vaccines (1 - Tdap) 12/21/1990 Hepatitis B Vaccines (1 of 3 - 19+ 3-dose series) 12/21/1990 Cervical Cancer Screening: P ap Smear 12/21/1992 Pneumococcal Vaccine: 50+ Ye ars (1 of 1 - PCV) 12/21/2021 Zoster Vaccines (1 of 2) 12/21/2021 Colorectal Cancer Screening: Colonoscopy 09/23/2022 HIV Screening 09/23/2022 Hepatitis C Screening 09/23/2022 Social Influencers of Health Screening 09/23/2022 Depression Screening 10/21/2024 COVID-19 Vaccine (1 - 2023-2 5 season) 2025 Influenza Vaccine (#1) 2025 HIB Vaccines Aged Out No longer eligi ble based on patient's age to complete this topic HPV Vaccines Aged Out No longer eligi ble based on patient's age to complete this topic Hepatitis A Vaccines Aged Out No long er eligible based on patient's age to complete this topic IPV Vaccines Aged Out No longer eligi ble based on patient's age to complete this topic MMR Vaccines Aged Out No longer eligi ble based on patient's age to complete this topic Meningococcal ACWY Vaccine Aged Out N o longer eligible based on patient's age to complete this topic Meningococcal B Vaccine Aged Out No l onger eligible based on patient's age to complete this topic RSV Immunization Patients Un lonnie 20 months Aged Out No longer eligible b ased on patient's age to complete this topic Varicella Vaccines Aged Out No longer eligible based on patient's age to complete this topic Care Teams Impact Hammer Operator Relationship Specialty Start Date End Date Ijeoma Lim MD [address] [place] [id number] PCP - General Internal Medicine 06/12/21
[2025-07-02 19:30] LABS: MANUAL DIFF FLAG NO
[2025-07-02 19:35] LABS: Hematocrit 35.8 % (37.0-47.0); Hemoglobin 12.0 g/dl (12.0-16.0); Imm Gran Abs Auto 0.02 X10*3/uL (0.00-0.03); Imm Gran Pct Auto 0.3 % (0.0-0.4); Lymphocytes Absolute Auto 2.1 X10*3/uL (1.2-4.9); Mean Corpuscular HGB Conc 33.5 g/dl (31.0-35.0); Mean Corpuscular Hemoglobin 29.1 pg (27.0-33.0); Mean Corpuscular Volume 86.9 fL (80.0-98.0); NRBC Abs Auto 0.000 X10*3/uL (0.0-0.012); NRBC Pct Auto 0.0 /100WBC (0.0-0.2); Platelet Count 302 X10*3/uL (160-400); Red Blood Count 4.12 X10*6/uL (4.20-5.50); White Blood Count 7.0 X10*3/uL (4.8-10.8)
[2025-07-02 19:45] LABS: Alanine Aminotransferase 14 U/L (0-31); Albumin Level 3.9 g/dL (3.5-5.0); Alkaline Phosphatase 62 U/L (39-117); Anion Gap 11 (12-20); Aspartate Amino Transferase 13 U/L (5-31); Blood Urea Nitrogen 15 mg/dL (9-16); Calcium 8.5 mg/dL (8.4-10.2); Carbon Dioxide 29 mmol/L (22-29); Chloride 110 mmol/L (96-108); Creatinine Clr Calc Pharmacy 73.7; Estimated Glomerular Filt Rate > 60; Magnesium 2.0 mg/dL (1.6-2.6); Potassium 3.8 mmol/L (3.3-5.1); Sodium 146 mmol/L (135-145); Total Protein 7.0 g/dL (6.5-8.0)
[2025-07-02 19:55] LABS: Troponin-I High Sensitivity < 2.7 ng/L (<3.5-17.0)
[2025-07-02 20:00] VITALS: BP 154/87; PULSE 67; RESP 16; TEMP 36.9; O2SAT 100
[2025-07-02 20:00] LABS: COVID-19 Test Negative (Negative); IDNOW Serial# 152EDE1D; IDNOW Serial# 16C4AD1C
[2025-07-02 20:01] LABS: Influenza B2 Negative (Negative)
[2025-07-02 21:47] LABS: Troponin-I High Sensitivity < 2.7 ng/L (<3.5-17.0)
[2025-07-02 21:55] LABS: D Dimer High Sensitivity < 150 NG/ML
[2025-07-02 22:00] VITALS: BP 165/80; PULSE 68; RESP 14; O2SAT 98
[2025-07-02] MEDS: Lidocaine 4 % Patch ADH..PATCH 1 PATCH TRANSDERMA (22:07)
[2025-07-02 22:13] VITALS: BP 165/80; PULSE 68; RESP 14; TEMP 36.6; O2SAT 98
== END 2025-07-02 22:20 | disposition home or self-care (01) ==
PROVIDERS: Physician Assistant; Physician Assistant Medical; Emergency Provider Student in an Organized Health Care Education/Training Program; PCP Internal Medicine
DX: R07.89 Other chest pain (principal); M54.50 Low back pain, unspecified; R07.1 Chest pain on breathing; Z11.52 Encounter for screening for COVID-19; Z03.818 Encounter for observation for suspected exposure to other biological agents ruled out; Z79.899 Other long term (current) drug therapy
CPT/HCPCS: 36415; 71046; 80053; 83735; 84484; 85025; 85379; 87502; 87635; 93005; 99283; 99285

== ENCOUNTER → 2025-07-02 18:19 | Outpatient (BNV) | payer OTHER, SELFPAY | PROVIDERS: Emergency Provider Student in an Organized Health Care Education/Training Program; PCP Internal Medicine; Visit Provider Internal Medicine Cardiovascular Disease | DX: R07.89 Other chest pain (principal) | CPT/HCPCS: 93010 ==

== ENCOUNTER → 2025-07-02 18:50 | Outpatient (BNV) | payer OTHER, SELFPAY | PROVIDERS: Emergency Provider Student in an Organized Health Care Education/Training Program; PCP Internal Medicine; Visit Provider Student in an Organized Health Care Education/Training Program | DX: R07.89 Other chest pain (principal) | CPT/HCPCS: 71046 ==

== ENCOUNTER 2025-08-16 12:47 | Emergency (ER) | payer OTHER, SELFPAY ==
--- OUTSIDE RECORDS SUMMARY | 2025-08-13 23:59 | XMS_ITS | Continuity of Care Document ---
Author Organization [facility] Address [address] [place] [phone]- Care Team Providers Care Gas Stove Servicer Helper Name Role Phone Ijeoma Lim MD Primary Care Physician [id number] Date(s): 07/14/25 - 08/13/[address] [address]- Encounter Type: Triage Allergies, Adverse Reactions, Alerts Substance Criticality Severity Reaction Reaction Severity Status penicillin ITCHY Active Latex RASH, ÁLVAREZ AND ITCHES Active Immunizations Given and Recorded Vaccine Date Status Refusal Reason influenza virus vaccine, inactivated 1 10/26/24 Gi leonor influenza virus vaccine, inactivated 09/02/19 Joshua rded influenza virus vaccine, inactivated 07/25/18 Joshua rded influenza virus vaccine, inactivated 12/27/17 Give n SARS-CoV-2 (COVID-19) mRNA-1273 vaccine 09/01/21 R ecorded SARS-CoV-2 (COVID-19) mRNA-1273 vaccine 2 11/24/20 Recorded SARS-CoV-2 (COVID-19) mRNA-1273 vaccine 10/27/20 R ecorded Influenza Virus Vaccine (oldterm) 3 07/21/20 Recor ded Influenza Virus Vaccine (oldterm) 08/27/19 Recorde d pneumococcal 23-valent vaccine 02/17/19 Given tetanus/diphtheria/pertussis, acel(Tdap) 12/27/17 Given 1Result Comment: [facility] [id number] 2Result Comment: Done at [facility] 3Result Comment: Done at work Medications albuterol 0.042% inhalation solution 3 mL = 1.25 mg, Neb, 4 times a day, PRN Wheezing/Shortness of Breath, # 50 each, 0 Refills, Maintenance, 10/05/24 2:32:00 PM EST, Solution, [facility]/pharmacy #[id number], Partial fill upon patient request if the prescription is for a schedule II opioid drug., 153, cm, 07/14/24 9:26:00 EDT, Height, 73.3, kg, 07/14/24 9:26:00 EDT, Dry Weight Start Date: 10/05/24 Status: Ordered Medication Dispense Status: Completed Quantity: 50.0 Unit: each Total Allowed Fills: 1 Fills Dispensed: 0 Canasa 1000 mg rectal suppository 1 supp = 1,000 mg, Rectally, Daily at bedtime, # 90 supp, 3 Refills, Maintenance, 05/29/24 11:40:00 AM EDT, [facility]/pharmacy #[id number], Partial fill upon patient request if the prescription is for a schedule II opioid drug., 153, cm, 05/26/24 7:36:00 EDT, Height, 76.5, kg, 05/26/24 7:36:00 EDT, Dry Weight Start Date: 05/29/24 Stop Date: 05/24/25 Status: Ordered Medication Dispense Status: Completed Quantity: 90.0 Unit: supp Total Allowed Fills: 4 Fills Dispensed: 0 chlorthalidone 25 mg oral tablet 1, tablet, By Mouth, Daily, # 90 tablet, Refills 0, Tot. Refills 0, Maintenance, 10/26/24 10:32:00 AMEST, Route to Pharmacy Electronically, [facility]/pharmacy #[id number], 153, cm, 10/26/24 9:53:00 EST, Height, 64.3, kg, 10/26/24 9:53:00 EST, Dry Weight Start Date: 10/26/24 Status: Ordered Medication Dispense Status: Completed Quantity: 90.0 Unit: tablet Total Allowed Fills: 1 Fills Dispensed: 0 estradiol 1 mg oral tablet Refills 0, Maintenance, 10/26/24 10:25:00 AM EST, Partial fill upon patient request if the prescription is for a schedule II opioid drug. Start Date: 10/26/24 Status: Ordered Medication Dispense Status: Completed Total Allowed Fills: 1 Fills Dispensed: 0 levothyroxine 0.1 mg oral tablet See Instructions, 1 tablet By Mouth from saturday to saturday and two tablets on Saturday and saturday 9 tablets a week, # 36 tablet, 11 Refills, Maintenance, 04/18/25 11:55:00 AM EDT, Tablet, [facility] #[id number], Partial fill upon patient request if the prescription is for a schedule II opioid drug., 153,cm, 04/14/25 11:37:00 EDT, Height, 64.3, kg, 10/26/24 9:53:00 EST, Dry Weight Start Date: 04/18/25 Status: Ordered Medication Dispense Status: Completed Quantity: 36.0 Unit: tablet Total Allowed Fills: 12 Fills Dispensed: 0 losartan 50 mg oral tablet 1 tablet, By Mouth, Daily, # 90 tablet, 3 Refills, Maintenance, 10/26/24 10:32:00 AM EST, [facility]/pharmacy #[id number], 153, cm, 10/26/24 9:53:00 EST, Height, 64.3, kg, 10/26/24 9:53:00 EST, Dry Weight Start Date: 10/26/24 Status: Ordered Medication Dispense Status: Completed Quantity: 90.0 Unit: tablet Total Allowed Fills: 4 Fills Dispensed: 0 meclizine 25 mg oral tablet 1 tablet = 25 mg, By Mouth, 3 times a day, PRN for dizziness, # 60 tablet, 0 Refills, Maintenance, 07/14/24 10:16:00 AM EDT, Tablet, [id number], Partial fill upon patient request if the prescription is for a schedule II opioid drug., 153, cm, 07/14/24 9:26:00 EDT, Height, 73.3, kg, 07/14/24 9:26:00 EDT, Dry Weight Start Date: 07/14/24 Status: Ordered Medication Dispense Status: Completed Quantity: 60.0 Unit: tablet Total Allowed Fills: 1 Fills Dispensed: 0 omeprazole 40 mg oral enteric coated capsule 1 capsule = 40 mg, By Mouth, Daily, # 90 capsule, 3 Refills, Maintenance, 11/25/24 11:28:00 AM EST, EC Capsule, [id number], Partial fill upon patient request if the prescription is for a schedule II opioid drug., 153, cm, 10/26/24 9:53:00 EST, Height, 64.3, kg, 10/26/24 9:53:00 EST, Dry Weight Start Date: 11/25/24 Stop Date: 11/20/25 Status: Ordered Medication Dispense Status: Completed Quantity: 90.0 Unit: capsule Total Allowed Fills: 4 Fills Dispensed: 0 Pen needles 32x4mm Pen needles 32x4mm, See Instructions, # 12 each, Refills 11, Tot. Refills 11, Maintenance, Pen needles to be used Wegovu shot weekly 30 days supply, 04/14/25 11:04:00 AM EDT, Supply, 153, cm, 02/18/2514:42:00 EDT, Height, 64.3, kg, 10/26/24 9:53:00 EST, Dry Weight Start Date: 04/14/25 Status: Ordered Medication Dispense Status: Completed Quantity: 12.0 Unit: each Total Allowed Fills: 12 Fills Dispensed: 0 rosuvastatin 20 mg oral tablet 1 tablet, By Mouth, Daily, # 90 tablet, 3 Refills, Maintenance, 10/05/24 2:32:00 PM EST, [id number], 153, cm, 07/14/24 9:26:00 EDT, Height, 73.3, kg, 07/14/24 9:26:00 EDT, Dry Weight Start Date: 10/05/24 Status: Ordered Medication Dispense Status: Completed Quantity: 90.0 Unit: tablet Total Allowed Fills: 4 Fills Dispensed: 0 semaglutide 1 mg/0.5 mL (1 mg dose) subcutaneous solution = 1 mg, Subcutaneous Injection, Every week, in the abdomen, thigh, or upper arm, # 2 mL, 1 Refills,Maintenance, 07/21/25 9:21:00 AM EDT, Solution, [id number], Partial fill upon patient request if the prescription is for a schedule II opioid drug., 153, cm, 04/14/25 11:37:00 EDT, Height, 64.3, kg, 10/26/24 9:53:00 EST, Dry Weight Start Date: 07/21/25 Stop Date: 09/15/25 Status: Ordered Medication Dispense Status: Completed Quantity: 2.0 Unit: mL Total Allowed Fills: 2 Fills Dispensed: 0 Vitamin D3 1000 intl units oral capsule 1 capsule = 1,000 International_Units, By Mouth, Daily, # 90 capsule, 3 Refills, Maintenance, 04/29/24 2:55:00 PM EDT, Capsule, [facility]/pharmacy #[id number], 152, cm, 03/11/24 11:02:00 EDT, Height, 77.5, kg, 03/11/24 10:59:00 EDT, Dry Weight Start Date: 04/29/24 Stop Date: 04/24/25 Status: Ordered Medication Dispense Status: Completed Quantity: 90.0 Unit: capsule Total Allowed Fills: 4 Fills Dispensed: 0 Zepbound Pen 2.5 mg/0.5 mL subcutaneous solution = 2.5 mg, Subcutaneous Infusion, Every 7 days, # 2 mL, 3 Refills, Maintenance, 04/13/25 11:44:00 AM EDT, [facility], Partial fill upon patient request if the prescription is for a schedule II opioid drug., 153, cm, 02/18/25 14:42:00 EDT, Height, 64.3, kg, 10/26/24 9:53:00 EST, Dry Weight Start Date: 04/13/25 Status: Ordered Medication Dispense Status: Completed Quantity: 2.0 Unit: mL Total Allowed Fills: 4 Fills Dispensed: 0 Problem List Condition Confirmation Course Effective Dates Status H ealth Status Informant Asthma Confirmed Active BPPV (benign paroxysmal positional vertigo) Confirmed Active Chronic back pain Confirmed Active GERD (gastroesophageal reflux disease) Confirmed Active Hyperlipidemia Confirmed Active Hypertension Confirmed Active Hypothyroidism Confirmed Active Encounter for IUD removal Confirmed Active Papillary thyroid carcinoma - s/p total thyroidectomy 11/12/2018 Confirmed Active Health care maintenance Confirmed Active PVCs (premature ventricular contractions) Confirmed Active Social History Social History Type Response Smoking Status Never smoker; Tobacc o user in household: No entered on: 10/01/17 Sexual Orientation Self described orien tation: ; Straight or heterosexual Sex Sex Representation Female (finding) Patient Care team information Care Team Personnel Name: Michelle LIN, Bailee Position: S RN Member Role: Primary Care Nurse Name: Ijeoma Lim MD Position: [facility] Physician - Primary Care Member Role: PCP Address: [address] [place] [address] Adult & Pediatric [address] Telecom: Care Team Related Persons Name: TAZ BATES Insurance Providers Guarantor name: ANTONI DRUMMOND [place] Plan Information #: [address]: [facility] HMO Payer Identifier: TAWNY Member Number: [id number] Group Number: [id number] Subscriber Identifier: [id number] Relationship to Subscriber: self Coverage Type: Commercial Managed Care - HMO Coverage Verification Date: NA Telecom: NA Address: NA
--- NOTE | ~2025-08-16 | CT_ITS ---
CLINICAL HISTORY: RLQ pain, appy rule out CT abdomen and pelvis with contrast Comparison: CT/SR - CT ABDOMEN PELVIS W IV CON - 10/23/24 01:34 EST Findings: No consolidation or effusion. 3 mm nonobstructive calculus within the upper pole of the right kidney. Two tiny nonobstructive calculi within the left kidney, the larger measuring 3 mm in size. No ureteral calculus or hydronephrosis. Small kidney cysts are incidentally noted. Remaining abdominal organs are unremarkable. There are no calcified gallstones. No bowel obstruction, pneumoperitoneum, or pneumatosis. Prior partial hysterectomy. Poorly distended urinary bladder. Normal appendix. The bones are intact. IMPRESSION: 1. The appendix is normal. There is no evidence of appendicitis. 2. There are tiny nonobstructive calculi within the bilateral kidneys. This document has been electronically signed by: Chichi Collazo MD on 08/16/2025 19:05:40
--- NOTE | 2025-08-16 13:26 | ED.GENADULT ---
HPI - General Adult General Chief complaint: Abdominal Pain Stated complaint: Urinary Symptoms Time Seen by Provider: 08/16/25 16:08 Source: patient Mode of arrival: ambulatory Limitations: no limitations History of Present Illness ED Provider: Dr. Beal [facility] narrative: 54-year-old female presented hospital today for evaluation of sudden onset of right flank pain that started yesterday. Endorsing some nausea and dizziness with it. She does have history of hysterectomy, breast surgery in the past. Denies any fever. However patient stated that this pain is colicky in nature. Denies any hematuria or dysuria. Related Data Previous Rx's ?Medication ?Instructions ?Recorded potassium chloride 20 mEq oral 20 meq PO DAILY 7 days #7 ea 04/30/23 packet furosemide 20 mg tablet (Lasix) 20 mg PO DAILY #3 tabs 02/28/24 potassium chloride 20 mEq oral 20 meq PO DAILY 5 days #30 ea 02/28/24 packet ondansetron 4 mg disintegrating 4 mg PO Q6-8H PRN nausea and 10/23/24 tablet vomiting #7 tabs potassium chloride 20 mEq 20 meq PO DAILY #30 tabs 10/23/24 tablet,extended release cyclobenzaprine 5 mg tablet 5 mg PO TID PRN muscle spasm 4 08/16/25 days #14 tabs lidocaine 5 % topical patch 1 patch topical DAILY #15 ea 08/16/25 ondansetron 4 mg disintegrating 4 mg PO Q8H PRN nausea and 08/16/25 tablet vomiting #14 tabs Allergies Allergy/AdvReac Type Severity Reaction Status Date / Time latex Allergy Rash Verified 08/16/25 13:27 Penicillins Allergy Palpitation Verified 08/16/25 13:27 s Review of Systems Review of Systems: Review of system [facility] Past Medical History [facility] Narrative: None Medical History PVC (premature ventricular contraction) HTN (hypertension) GERD (gastroesophageal reflux disease) Hyperlipidemia Social History Social History (System 01/21/25 @ 13:35 by Beckie Lara) Alcohol intake: never Patient Tobacco Use Status: Never used Tobacco Advance Directives: No Advance Directives Information Provided: No Physical Exam ED Exam Exam: General: Pleasant, no distress, interacting appropriately Head: Normacephalic, atraumatic ENT: oral mucosa moist, neck supple, no tracheal deviation Cardiovascular: regular rate, regular rhythm, no murmurs, rubbing, gallops Respiratory: CTAB, no wheeze, rales, rhonchi Gastrointestinal: Soft, non distended, Grimes lower quadrant tenderness on palpation, no CVA tenderness on percussion Neurological: Awake and alert, no facial droop noted Skin: Warm and dry Psychiatric: Appropriate mood and thoughts Vital Signs: Vital Signs - 24 hr 08/16/25 13:27 Temperature 96.8 F Pulse Rate 66 Respiratory Rate 16 Blood Pressure 181/86 H Pulse Oximetry 99 Oxygen Delivery Method Room Air BMI result Body Mass Index 26.9 Course Course Course Narrative: Rapid medical examination performed in triage by Dianna Duvall PA-C. Patient is a 54 year old assigned female at presenting to the emergency department with right kidney pain, dizziness, and nausea. Detailed physical exam and review of systems are deferred to the chip unloader. Labs ordered. Patient placed back in the waiting room pending room availability and results. Medications Administered Discontinued Medications Generic Name Dose Route Start Last Admin Trade Name Freq PRN Reason Stop Dose Admin Sodium Chloride 1,000 mls @ 999 mls/hr 08/16/25 16:45 08/16/25 16:54 Ns IV 08/16/25 17:45 999 mls/hr .Q1H1M CRYSTAL Administration Iohexol 100 ml 08/16/25 17:15 08/16/25 17:16 Iohexol 350 Mg/Ml 100 Ml Infus..Btl IV 08/16/25 17:16 85 ml ONCE ONE Administration Ondansetron HCl 4 mg 08/16/25 16:45 08/16/25 16:54 Ondansetron Hcl 4 Mg/2 Ml Vial IVPUSH 08/16/25 16:46 4 mg ONCE ONE Administration Medical Decision Making Medical Decision Making [facility] Narrative: 54-year-old female presented hospital today for evaluation of right flank pain that started yesterday. We will plan to give patient a bolus IV fluid, IV Zofran. Patient does have right lower quadrant tenderness. We will plan to obtain CT abdomen and pelvis to rule out appendicitis. UA will be obtained as well. We will plan to rule out UTI versus pyelonephritis or signs of any kidney stone. Her pain is more so on the anterior right lower quadrant area than the right CVA area. Patient's lab work is unremarkable. UA did not show any signs of infection. Patient's CT imaging shows nonobstructing kidney stone no sign of hydronephrosis patient's has no other intra-abdominal pathology on CT imaging. We will plan to discharge patient with Flexeril, Zofran, lidocaine patch. I suspect this may be musculoskeletal in nature. Patient will be discharged home with close outpatient follow up. Differential Diagnosis Differential Diagnoses: The differential diagnosis associated with the presentation includes Nephrolithiasis, dehydration, gastritis, appendicitis, pyelonephritis Lab Data MDM Lab Attestation statement: I reviewed the patient's lab results. 08/16/25 14:18 08/16/25 14:18 Labs: Lab Results 08/16/25 08/16/25 Range/Units 14:18 16:56 WBC 7.0 (4.8-10.8) X10*3/uL RBC 4.37 (4.20-5.50) X10*6/uL Hgb 12.5 (12.0-16.0) g/dl Hct 38.4 (37.0-47.0) % MCV 87.9 (80.0-98.0) fL MCH 28.6 (27.0-33.0) pg MCHC 32.6 (31.0-35.0) g/dl RDW 14.4 (11.0-16.0) % Plt Count 323 (160-400) X10*3/uL MPV 10.6 (9.4-12.3) fL Immature Gran % (Auto) 0.3 (0.0-0.4) % Neut % (Auto) 68.3 (45-73) % Lymph % (Auto) 24.6 (20-40) % Bertie % (Auto) 5.3 (2-11) % Eos % (Auto) 0.9 (0-4) % Baso % (Auto) 0.6 (0-2) % Lymph # (Auto) 1.7 (1.2-4.9) X10*3/uL Bertie # (Auto) 0.4 (0.1-1.2) X10*3/uL Eos # (Auto) 0.1 (0.0-0.4) X10*3/uL Baso # (Auto) 0.0 (0.0-0.2) X10*3/uL Abs Immat Gran (auto) 0.02 (0.00-0.03) X10*3/uL Absolute Neuts (auto) 4.8 (2.0-8.3) x10*3/uL Absolute Nucleated RBC 0.000 (0.0-0.012) X10*3/uL Nucleated RBC % (auto) 0.0 (0.0-0.2) /100WBC Sodium 141 (135-145) mmol/L Potassium 3.7 (3.3-5.1) mmol/L Chloride 106 (96-108) mmol/L Carbon Dioxide 30 H (22-29) mmol/L Anion Gap 9 L (12-20) BUN 14 (9-16) mg/dL Creatinine 0.66 (0.5-1.4) mg/dL Estim Creat Clear Calc 81.4 Estimated GFR > 60 Random Glucose 125 H (60-115) mg/dL Calcium 8.8 (8.4-10.2) mg/dL Magnesium 2.1 (1.6-2.6) mg/dL Total Bilirubin 0.2 (0.0-1.0) mg/dL AST 23 (5-31) U/L ALT 15 (0-31) U/L Alkaline Phosphatase 73 (39-117) U/L Total Protein 7.5 (6.5-8.0) g/dL Albumin 4.1 (3.5-5.0) g/dL Beta HCG, Quant < 2 mIU/mL Urine Color Yellow Urine Appearance Turbid Urine pH 7.5 (5.0-9.0) Ur Specific [place] 1.020 (1.005-1.025) Urine Protein Negative (Neg-Trace) mg/dL Urine Glucose (UA) Negative (Negative) mg/dL Urine Ketones Negative (Negative) mg/dL Urine Blood Negative (Negative) Urine Nitrite Negative (Negative) Ur Leukocyte Esterase Negative (Negative) Independent Interpretation I performed an independent interpretation of an: CT Scan Radiology Impression Discussion of test interpretation with radiology: I have reviewed the radiologist's reading. Discharge Plan Discharge Clinical Impression: Abdominal pain Qualifiers: Abdominal location: unspecified location Qualified Code(s): R10.9 - Unspecified abdominal pain Patient Disposition: Home, Self-Care Instructions: Abdominal Pain (ED) Prescriptions: New cyclobenzaprine 5 mg tablet 5 mg PO TID PRN (Reason: muscle spasm) 4 Days Qty: 14 0RF lidocaine 5 % adhesive patch,medicated 1 patch topical DAILY Qty: 15 0RF Rx Instructions: leave on most painful area for up to 12 hrs ondansetron 4 mg tablet,disintegrating 4 mg PO Q8H PRN (Reason: nausea and vomiting) Qty: 14 0RF No Action potassium chloride 20 mEq packet 20 meq PO DAILY 7 Days Qty: 7 0RF furosemide [Lasix] 20 mg tablet 20 mg PO DAILY Qty: 3 0RF potassium chloride 20 mEq packet 20 meq PO DAILY 5 Days Qty: 30 0RF potassium chloride 20 mEq tablet extended release 20 meq PO DAILY Qty: 30 0RF ondansetron 4 mg tablet,disintegrating 4 mg PO Q6-8H PRN (Reason: nausea and vomiting) Qty: 7 0RF Print Language: Finnish
[2025-08-16 13:27] VITALS: BP 181/86; PULSE 66; RESP 16; TEMP 36; O2SAT 99; BMI 26.9
[2025-08-16 14:32] LABS: MANUAL DIFF FLAG NO
[2025-08-16 14:35] LABS: Hematocrit 38.4 % (37.0-47.0); Hemoglobin 12.5 g/dl (12.0-16.0); Imm Gran Abs Auto 0.02 X10*3/uL (0.00-0.03); Imm Gran Pct Auto 0.3 % (0.0-0.4); Lymphocytes Absolute Auto 1.7 X10*3/uL (1.2-4.9); Mean Corpuscular HGB Conc 32.6 g/dl (31.0-35.0); Mean Corpuscular Hemoglobin 28.6 pg (27.0-33.0); Mean Corpuscular Volume 87.9 fL (80.0-98.0); NRBC Abs Auto 0.000 X10*3/uL (0.0-0.012); NRBC Pct Auto 0.0 /100WBC (0.0-0.2); Platelet Count 323 X10*3/uL (160-400); Red Blood Count 4.37 X10*6/uL (4.20-5.50); White Blood Count 7.0 X10*3/uL (4.8-10.8)
[2025-08-16 14:52] LABS: Alanine Aminotransferase 15 U/L (0-31); Albumin Level 4.1 g/dL (3.5-5.0); Alkaline Phosphatase 73 U/L (39-117); Anion Gap 9 (12-20); Aspartate Amino Transferase 23 U/L (5-31); Blood Urea Nitrogen 14 mg/dL (9-16); Calcium 8.8 mg/dL (8.4-10.2); Carbon Dioxide 30 mmol/L (22-29); Chloride 106 mmol/L (96-108); Creatinine Clr Calc Pharmacy 81.4; Estimated Glomerular Filt Rate > 60; Magnesium 2.1 mg/dL (1.6-2.6); Potassium 3.7 mmol/L (3.3-5.1); Sodium 141 mmol/L (135-145); Total Protein 7.5 g/dL (6.5-8.0)
[2025-08-16 17:09] LABS: Appearance Urine Turbid; Glucose Urine UA Negative (Negative); PH 7.5 (5.0-9.0); Specific Gravity - Urine 1.020 (1.005-1.025)
[2025-08-16] MEDS: iohexoL 350 MG/ML 100 ML INFUS..BTL IV (17:16)
--- OUTSIDE RECORDS SUMMARY | 2025-08-16 19:13 | XMS_ITS | Clinical Summary ---
Author Organization [facility] Address [address] [place] [address] Phone Care Team Providers Care Transfer Specialist Name Role Phone Ijeoma Lim MD Primary Care Provider [phone] Allergies Active Allergy Reactions Criticality Noted Date [...] Description 06/01/2025 1:00 PM EDT Office Visit [facility] Plastic Surgery [address] [place] [address] Amelia Heck PA-C Aftercare following surgery of the skin or subcutaneous tissue (Primary Dx) 05/28/2025 Telephone [facility] Plastic Surgery [address] [place] [address] Wen Obando CMA Post-op 05/17/2025 Telephone [facility] Plastic Surgery [address] [place] [address] Wen Obando CMA Post-op from Last 3 Months Family History Medical [...] Care Team (Late st Contact Info) Description 08/17/2025 10:00 AM EDT Office Visit [facility] Plastic Surgery [address] [place] [address] Amelia Heck PA-C [address] [place] [address] [email or web address] Health Maintenance Due Date Last Done Comments [...] FOBT 12/21/2016 SIGMOIDOSCOPY 12/21/2016 VIRTUAL COLONOSCOPY 12/21/2016 RSV VACCINE (1 - Risk 50-74 years 1-dose series) 12/21/2021 INFLUENZA VACCINE (#1) 2025 , 09/02/2019, 07/25/2018 COVID-19 VACCINE ( - 2024-2 6 season) 2025 09/01/2021, 11/24/2020, 10/27/2020 BLOOD [...] this topic Medical Devices Not on file Insurance [facility] [place] [id number] [facility] [place] [address] [facility] [place] [place] [address] [facility] [place] [address] [facility] HMO Advance Directives For more information, please contact: [phone] (9AM - 5PM [facility], Saturday-Saturday) * Full Code (Latest Code Status on File) Date Activated Date Inactivated Comments 04/27/2025 6:26 AM Question Answer Comments Code Status Confirmed With: Other (specify below ) Code Discussion Comments: periop Care Teams Transfer Specialist Relationship Specialty Start Date End Date Ijeoma Lim MD [address] [place] [address] PCP - General Internal Medicine 10/02/23 Additional Source Comments The information contained in this document represents components of the legal health record. It is not the complete legal health record.[facility]
--- OUTSIDE RECORDS SUMMARY | 2025-08-16 19:13 | XMS_ITS | Encounter Summary ---
Author Organization [facility] Address [address] [place] [address] Phone Care Team Providers Care Booster Assembler Name Role Phone Ijeoma Lim MD Primary Care Provider [phone] Encounter Details Date Type Department Care Team (Late st Contact Info) Description 04/27/2025 Procedure Pass OR Admitting Dept - Virtual Department [address] [place] [address] Social History Tobacco Use Types Packs/Day Years [...] Description 08/17/2025 10:00 AM EDT Office Visit [facility] Plastic Surgery [address] [place] [address] Amelia Heck PA-C [address] [address] [email or web address] documented as of this encounter Visit Diagnoses Not on filedocumented in this encounter Care Teams Booster Assembler Relationship Specialty Start Date End Date Ijeoma Lim MD [address] [place] [address] PCP - General Internal Medicine 10/02/23 documented as of this encounter Additional Source Comments The information contained in this document represents components of the legal health record. It is not the complete legal health record.[facility]
--- OUTSIDE RECORDS SUMMARY | 2025-08-16 19:13 | XMS_ITS | Clinical Summary ---
Author Organization [facility] Address [address] [place] [address] Care Team Providers Care Client Support Professional Name Role Phone Ijeoma Lim MD Primary Care Provider [phone] Surgical History Surgery Date Site/Laterality Comments CARPAL TUNNEL RELEASE PROCEDURE: HISTORICAL CARPAL TUNNEL REL OTHER SURGICAL HISTORY PROCEDURE: HISTORICAL SUBTOTAL THYROIDECTOMY HYSTERECTOMY PROCEDURE: HISTORICAL HYSTERECTOMY OTHER SURGICAL HISTORY PROCEDURE: ADDED FINGER RECONSTRUCTION SURGERY Medical History Medical History Date Comments Hypertension DX:Hypertension Mood disorder (CMS/HCC V24) DX:M ood disorder ([facility]) Class 1 obesity DX:Class 1 obesi ty [...] Last Done Comments Breast Cancer Screening 1971 Colorectal Cancer Screening: Colonoscopy 1971 DTaP,Tdap,and Td Vaccines (1 - Tdap) 12/21/1990 Hepatitis B Vaccines (1 of 3 - 19+ 3-dose series) 12/21/1990 Cervical Cancer Screening: P ap Smear 12/21/1992 Pneumococcal Vaccine: 50+ Ye ars (1 of 1 - PCV) 12/21/2021 Zoster Vaccines (1 of 2) 12/21/2021 HIV Screening 09/23/2022 Hepatitis C Screening 09/23/2022 Social Influencers of Health Screening 09/23/2022 Depression Screening 10/21/2024 COVID-19 Vaccine (1 - 2023-2 5 season) 2025 Influenza Vaccine (#1) 2025 RSV Immunization Adult Patie nts (1 - 1-dose 75+ series) 12/21/2046 HIB Vaccines Aged Out No longer eligi [...] age to complete this topic Care Teams Client Support Professional Relationship Specialty Start Date End Date Ijeoma Lim MD [address] [place] [phone] PCP - General Internal Medicine 06/12/21
--- OUTSIDE RECORDS SUMMARY | 2025-08-16 19:13 | XMS_ITS | Data Portability ---
Author Organization [facility] See [facility], [address] Address [address] [place] [address] Care Team Providers Care Composition Weatherboard Installer Name Role Phone [facility] Primary Care Provider Assessment No assessment recorded. Plan of Treatment Reminders Order Date Submit Date Provider Last Modified By Organization Details Last Modified Time Details Appointments None recorded. Lab SARS CoV 2 (COVID-19) Ag, QL, IA, upper respiratory specimen [email or web address], [address] [place] [address], [address], 3 16:36:15 rapid flu (A+B) 2022 023 [email or web address] 5 [facility], [address] [place] [address], [address], 3 16:36:14 Referral emergency medicine referral 2022 023 [email or web address] [facility] [address] [place], [address], 3 16:59:39 Procedures None recorded. Surgeries None recorded. Imaging electrocard iogram 2022 023 [facility], [address] [place] [address], [address], 3 16:59:38 Medication Orders Ciloxan 0.3 % eye drops 2023 024 [facility] #[id number], [address] [place], [address], 13:06:28 Patient TargetsNo targets recorded. Patient Instructions Encounter Date Encounter Id Patient Instructions Last Modified By Organization Details Last Modified Time 04/30/2023 [id number] You have been advised to go to the Emergency Department for further evaluation. [facility] has been advised of your impending arrival. EMS transport has been arrange. Not available 04/30/2023 16:55:29 12/31/2023 [id number] glenne: care instructions [email or web address] Not available 12/31/2023 13:06:26 Patient was evaluated by the Physician Custom Ski Maker using AV technology. This type of exam does not replace a need for an in-person evaluation if symptoms worsen or do not improve after 24-48 hours. [email or web address] Not available 12/31/2023 13:01:04 Reason for Referral Emergency Medicine Referral for Chest pain chest pain last night. Abnormal ekg. Referring Physician: Princess Nelson, Urgent Care, Encounter Date: 04/30/2023 Results Created Date Observation Date Name Description Value Unit Range Abnormal Flag Note LastModifiedBy Organization Detail LastModifiedTime 04/30/2004/30/2023 rapid flu (A+B) Unknown Analyte Normal = Negati ve Not Available [facility] [address] [place] [address] [place], [address], 04/30/2023 14:56:33 04/30/20 23 04/30/2023 rapid flu (A+B) Unknown Analyte Normal = Negati ve Not Available [facility] [address] [place] [address] [place], [address], 04/30/2023 14:56:33 04/30/20 23 04/30/2023 rapid flu (A+B) Unknown Analyte negati ve Not Available [facility] [address] [place] [address] [place], [address], 04/30/2023 14:56:33 04/30/20 23 04/30/2023 rapid flu (A+B) Unknown Analyte negati ve Not Available [facility] [address], [place], [address], 04/30/2023 14:56:33 04/30/20 23 04/30/2023 SARS CoV 2 (COVI D-19) Ag, QL, IA, upper respi rator y speci men Unknown Analyte Normal = Negati ve Not Available [address] [place] [address], [place], [address], 04/30/2023 14:56:27 04/30/20 23 04/30/2023 SARS CoV 2 (COVI D-19) Ag, QL, IA, upper respi rator y speci men Unknown Analyte negati ve Not Available [address] [place] [address], [place], [address], 04/30/2023 14:56:27 04/30/20 23 04/30/2023 elect franko philip am No observ ation record ed. BIN[facility] [address], [place], [address], 04/30/2023 16:37:31 Result Notes None recorded. Problems Name Problem SNOMED Code Status Onset Date Resolution Date Notes Provider Name and Address Organization Details Recorded Time Thyroidecto my Active Amelia mcnair, [place] - [facility] 3 14:50:35 Hypertensiv e disorder 00693631 Active Aemlia mcnair, [place] - [facility] 3 14:50:44 Bilateral conjunctivi tis 0367713536862 9103 Active 2023 PREETI WILL [address] , [place], [address] , [place] - [facility] 4 13:04:12 Problem Notes None recorded. Procedures Surgical History Date Name Laterality Status Provider Name and Address Organization Details Recorded Time 12/31/19 24 Virtual Visit [place], [address], [place] - [facility] 12/31/2023 13:00:55 thyroidectomy completed Amelialeonard Jeter PA - [facility] 04/30/2023 14:53:28 hysterectomy completed Amelia Ruszala PA - [facility] 04/30/2023 14:53:39 excision of cyst of breast completed Amelia Ruszala PA - [facility] 04/30/2023 14:54:15 Imaging Results None recorded. Procedure Notes None recorded. Medical Equipment None Reported. Allergies Allergen ID Allergen Name Allergen Category Reaction Reaction Severity Criticality Documentation Date Start Date Code Code System Note Provider Name and Address Organization Details Recorded Time 378238 Product containin g penicilli n (product) medicatio n Not available Not available Not available 04/30/2023 27695 8001 SNOMED Amelialeonrad Jeter null, PA - [facility] 3 14:50:08 918390 latex environme nt,medica tion Not available Not available Not available 04/30/2023 99221 91 RxNorm Amelialeonard Campbellla null, PA - [facility] 3 14:50:13 Medications Name Sig Start Date Stop [...] Updated DateTime 12/31/2023 152.4 cm 32.8 kg/m2 20827.52 g Ashley Huongjorge Sonoc[facility] 12/31/2023 12:52:56 Date Recorded Body height Body mass index (BMI) Body weight Pain severity - 0-10 verbal numeric rating [Score] - Reported Oxygen saturation Oxygen saturation in Arterial blood by Pulse oximetry Heart rate Respiratory rate Body temperature Systolic And Diastolic Provider Name and Address Organization Details Last Updated DateTime 152.4 cm 32.8 kg/m2 46629.5 2 g 8 98 % 98 % 63 /min 16 /min 98.5 [degF] 128/83 mm[Hg] Amelia Jeter [facility] 14:59:40 Social History Question Answer Notes LastModified by Stick and Play Details LastModified Time Tobacco Smoking Status Never Smoker Amelia mcnair [facility] 04/30/2023 14:55:52 Have You Had Direct Contact, Or Contact During Intimacy, With Monkeypox Rash, Scabs, Or Body Fluids From A Person With Monkeypox? No Information not available 04/30/2023 What Was The Date Of Your Most Recent Tobacco Screening? 12/31/2023 [email or web address] Information not available 12/31/2023 Have You Recently Traveled Abroad? No Information not available 04/30/2023 Sex: Unknown Functional Status Question Answer Note LastModified by Stick and Play Details LastModified Time Do you use any illicit or recreational drugs? No Information not available 04/30/2023 What is your level of alcohol consumption? None Information not available 04/30/2023 Mental Status None recorded. Family History Relationship [...] split virus, quadrivalent, preservative 8 completed Ashley mcnair, PA - [facility] 12/31/2023 12:49:50 Influenza, split virus, quadrivalent, preservative 9 completed Ashley [place] null, PA - [facility] 12/31/2023 12:49:50 COVID-19, mRNA, LNP-S, PF, 100 mcg/0.5mL dose or 50 mcg/0.25mL dose 1 completed Ashley mcnair, PA - [facility] 12/31/2023 12:49:50 COVID-19, mRNA, LNP-S, PF, 100 mcg/0.5mL dose or 50 mcg/0.25mL dose 1 completed Ashley [place] null, PA - [facility] 12/31/2023 12:49:50 COVID-19, mRNA, LNP-S, PF, 100 mcg/0.5mL dose or 50 mcg/0.25mL dose 1 completed Ashley [place] null, PA - [facility] 12/31/2023 12:49:50 Past Encounters Encounter ID Performer Location Encounter Start Date Encounter Closed Date Diagnosis/Indication Diagnosis SNOMED-CT Code Diagnosis ICD10 Code Diagnosis IMO Codes Diagnosis Note [id number] [address] [facility] [place] [address] 08/07/2022 09:22:28 08/07/2022 10:09:49 [id number] [address] [address] [place] [address] 02/14/2022 16:47:54 02/14/2022 19:03:12 [id number] [address] [address] [facility] [place] [address] 07/25/2022 12:13:48 07/25/2022 16:21:49 [id number] [address] [address] [facility] [place] [address] 10/29/2021 08:03:28 10/29/2021 08:52:19 [id number] Princess Nelson MD [address] [address] [facility] [place] [address] 04/30/2023 14:31:40 04/30/2023 16:59:38 Chest pain 22100261 R07.9 [id number] [facility]ETI WILL [address] [facility] [address] [place] [address] 12/31/2023 12:44:20 12/31/2023 13:33:30 Bilateral conjunctivitis [id number] 7461440 H10.9 Based on your presentati on and exam I could see on the AV, you are going diagnosed with Conjunctiv itis. I am going to cover you for a bacterial infection in the eye with antibiotic eye drops. Sometimes these symptoms can be caused by a virus or allergies. Viral infections with spontaneou sly resolve after 7-10 days and do not require treatment. If it is an allergy cause sometime oral allergy medication s will help with these symptoms or a allergy eye drop that can be purchased OTC. The following are my recommenda tions to help with your symptoms and this diagnosis: 1. Do not rub your eyes this can cause it to spread or damage the cornea of your eye.2. Wash surfaces such as cell phones, remotes, door knob frequently , because this is how it is transmitte d to others.3. Do not wear contacts for at least 1 week if you have contacts.4 . No makeup5. You can take Ibuprofen or Tylenol for discomfort if you are not allergic to them.6. If you get lubricatin g eye drops and put them in the refrigerat or - this can help with itching and discomfort . You should be seen again if you develop any of the following symptoms1. Eye pain or pressure behind the eye.2. Redness or significan t swelling of the eyelid or around the eye3. Headache4. Fever > 100.55. No improvemen t in current symptoms in the next 1 week. Thank you for using [facility] today, please feel free to contact us with any questions or concerns. Health Concerns Section Related Observation LastModified by Organization Detai ls LastModified Time None Recorded Concern Status LastModified by Organization Details LastModified Time None Recorded Advance Directives Directive None Recorded Payers Insurance Date Sequence Insurance Name Policy Number Policy Mahoney Covered Member ID Mahoney Member ID Guarantor Name 12/31/2023 PROMPT PAY Daisy Sanchez 12/31/2023 1 [place] [id number] Leila Sanchez 12/31/2023 1 [facility] (MEDICAID HMO) [id number] Leila Sanchez [id number] Leila Sanchez Notes Date Note Type Note Provider Name and Address Organization Details Recorded Time 04/30/20 23 text/htm l FatigueReported by PatientHPIFor source of patient information, patient reportsinformation obtained from patientandpatient arrived at urgent care ambulatory. For quality, patient reportscontinuous. For severity, patient reportsmoderate. For duration, patient reportsconstant. For timing, (constant since awakening this morning.). For context, (episode of chest pain last night for one hour.). For associated symptoms, (profound weakness since awakening this morning with body aches.).52 year old femal with hx HLD, HTN, [...] pain was different. Princess Nelson MD [address] [place], [address], [place] - [facility] 04/30/2023 21:40:54 03/12/20 24 text/htm l Eye problemsReported by PatientHPIFor eye symptoms, patient reportsrednessanditchingbut reportsno sensitivity to light. For source of patient information, patient reportsinformation obtained from patientandpatient arrived at urgent care ambulatory. For location, patient reportsright. For severity, patient reportsmild. For onset/timing, patient [id number]. For context, patient reportscontact lens wearerandothers with similar symptoms (-denies). For modifying factors, (has had cornea scratch before and this doesn't feel like that at all.).The patient does not have any pain or [...] a valid medical license. PREETI WILL [address] [place], [address], [place] - [facility] 12/31/2023 13:20:01 OBGyn Episode No OBEpisode recorded.
[2025-08-16 19:54] VITALS: BP 181/81; PULSE 61; RESP 18; TEMP 36.6; O2SAT 100
[2025-08-16 20:00] VITALS: BP 181/81; PULSE 61; RESP 18; TEMP 36.6; O2SAT 100
== END 2025-08-16 20:05 | disposition home or self-care (01) ==
PROVIDERS: Physician Assistant Medical; Emergency Provider Student in an Organized Health Care Education/Training Program; PCP Internal Medicine
DX: R10.22 Pelvic and perineal pain left side (principal); R11.0 Nausea; R10.9 Unspecified abdominal pain; R10.A1 Flank pain, right side; R42 Dizziness and giddiness
CPT/HCPCS: 36415; 74177; 80053; 81003; 83735; 84702; 85025; 96361; 96374; 99284; 99285; J2405; Q9967

== ENCOUNTER → 2025-08-16 16:45 | Outpatient (BNV) | payer OTHER, SELFPAY | PROVIDERS: Emergency Provider Student in an Organized Health Care Education/Training Program; PCP Internal Medicine; Visit Provider Radiology Diagnostic Radiology | DX: N20.0 Calculus of kidney (principal) | CPT/HCPCS: 74177 ==

== ENCOUNTER 2025-08-19 07:38 | Emergency (ER) | payer OTHER, SELFPAY ==
--- OUTSIDE RECORDS SUMMARY | 2025-02-05 05:15 | XMS_ITS ---
Author Organization [facility] Address [address] [place] [address] Care Team Providers Care Coal Grader Name Role Phone Ijeoma Lim MD Primary Care Provider Sofia Montero [phone] Encounters Encounter Location Date Provider Diagnosis [address] [address] 02/05/2025 Sofia Whitt Plan Of Treatment Next Appt Details Provider Name:Sofia pelayo, 10/12/2025 02:30:00 PM, [address] [place] [address], [id number], Progress Notes * Leila SANCHEZ IDOB:1970 (54 yo F)Acc No.[id number]:02/05/2025 Progress Note Patient: Mignon KELLEY Leila Swain Provider: Staci Whitt DPM :1970 A ge:54 Y S ex:Female Date:02/05/2025 Address:[address] [place], [place] [address]antolin Eddy [facility] Pcp:Ijeoma Lim MD Subjective: * Chief Complaints: * * Medical History: Objective: * Vitals: Assessment: Plan: * Treatment: * Images: * The named appointment provid er may or may not be the originator of this progress note, and it is not deemed complete until electronically signed by the appointment provider. Sign off status: Pending * Provider: Staci Whitt, GUILLERMO Date: 0 02/05/2025 Generated for Emi bazan/Xiao/Juan Francisco on: 1 08:31 AM EDT
--- OUTSIDE RECORDS SUMMARY | 2025-04-07 09:00 | XMS_ITS ---
Author Organization [facility] Address [address] [place] [address] Care Team Providers Care Lithostripper Name Role Phone Ijeoma Lim MD Primary Care Provider Sofia Montero [phone] Encounters Encounter Location Date Provider Diagnosis [address] [address] 04/07/2025 Sofia Whitt Plan Of Treatment Next Appt Details Provider Name:Sofia pelayo, 10/12/2025 02:30:00 PM, [address] [place] [address], [phone], Progress Notes * Leila SANCHEZ IDOB:1970 (54 yo F)Acc No.[id number]:04/07/2025 Progress Note Patient: Mignon KELLEY Leila Swain Provider: Staci Whitt DPM :1970 A ge:54 Y S ex:Female Date:04/07/2025 Address:[address] [place], [place] [address]antolin Eddy [facility] Pcp:Ijeoma Lim MD Subjective: * Chief Complaints: * * Medical History: Objective: * Vitals: Assessment: Plan: * Treatment: * Images: * The named appointment provid er may or may not be the originator of this progress note, and it is not deemed complete until electronically signed by the appointment provider. Sign off status: Pending * Provider: Staci Whitt DPM Date: 0 04/07/2025 Generated for Emi bazan/Xiao/Juan Francisco on: 1 08:30 AM EDT
--- OUTSIDE RECORDS SUMMARY | 2025-05-12 11:00 | XMS_ITS ---
Author Organization [facility] Address [address] [place] [address] Care Team Providers Care Towel Stretcher Name Role Phone Ijeoma Lim MD Primary Care Provider Sofia Montero Unavailable [phone] Allergies Allergen (clinical drug ingredient) Drug/Non Drug Allergy documented on EMR Reaction Allergy Type Onset Date Status Adhesive rash Allergy Active Latex Latex rash Allergy Active Penicillin rash Drug Allergy Active Medications Medication SIG (Take, Route, Frequency, Duration) Notes Start Date End Date Status Levothyroxine Sodium 137 MCG 1 tablet in the morning on an empty stomach Orally Once a day Active Ciclopirox Olamine 0.77 % 1 application Externally Twice a day; Duration: 30 days Active PriLOSEC Active Potassimin Active Chlorthalidone 25 MG 1 tablet in the mor leif with food Orally Active Vitamin D Active Aspirin 81 MG 1 tablet Orally Once a day Active Losartan Potassium 100 MG 1 tablet Orall y Once a day Active Rosuvastatin Calcium 20 MG 1 tablet Oral ly Once a day Active Estradiol 1 MG 1 tablet Orally Once a day Active Encounters Encounter Location Date Provider [facility] [address] [place] [address] 05/12/2025 Sofia Whitt Plan Of Treatment Next Appt Details Provider Name:Sofia pelayo, 10/12/2025 02:30:00 PM, [address] [place], [address], Progress Notes * Leila SANCHEZ IDOB:1970 (54 yo F)Acc No.[id number]:05/12/2025 Progress Note Patient: Leila VILLAVICENCIO I Provider: Staci Whitt DPM :1970 A ge:54 Y S ex:Female Date:05/12/2025 Address:[address] [place] [address], [facility] Pcp:Ijeoma Lim MD Subjective: * Chief Complaints: * * Medical History: A nemia, Anxiety, Asthma, Cancer, Covid-19, Depression, Headaches/Migraines, Hiatal hernia, High blood pressure, Reflux ( GERD), Sinusitis, Thyroid, Chicken pox. * Medications: T aking Chlorthalidone 25 MG Tablet 1 tablet in the morning with food Orally , Taking PriLOSEC , Taking Potassimin , Taking Vitamin D , Taking Aspirin 81 MG Tablet Chewable 1 tablet Orally Once a day , Taking Losartan Potassium 100 MG Tablet 1 tablet Orally Once a day , Taking Rosuvastatin Calcium 20 MG Tablet 1 tablet Orally Once a day , Taking Estradiol 1 MG Tablet 1 tablet Orally Once a day , Taking Levothyroxine Sodium 137 MCG Tablet 1 tablet in the morning on an empty stomach Orally Once a day , Taking Ciclopirox Olamine 0.77 % Cream 1 application Externally Twice a day * Allergies: P enicillin: rash - Allergy, Adhesive: rash - Allergy, Latex: rash - Allergy. Objective: * Vitals: Assessment: Plan: * Treatment: * Images: * The named appointment provid er may or may not be the originator of this progress note, and it is not deemed complete until electronically signed by the appointment provider. Sign off status: Pending * Provider: Staci Whitt DPM Date: 0 05/12/2025 Generated for Emi bazan/Xiao/Juan Francisco on: 08:29 AM EDT
--- OUTSIDE RECORDS SUMMARY | 2025-07-27 11:30 | XMS_ITS ---
Author Organization [facility] Address [address] [place] [address] Care Team Providers Care Honey Blender Name Role Phone Ijeoma Lim MD Primary Care Provider Sofia Montero [phone] Encounters Encounter Location Date Provider Diagnosis [address] [id number] 07/27/2025 Sofia Whitt Plan Of Treatment Next Appt Details Provider Name:Sofia pelayo, 10/12/2025 02:30:00 PM, [address] [place] [address], [phone], Progress Notes * Leila SANCHEZ IDOB:1970 (54 yo F)Acc No.[id number]:07/27/2025 Progress Note Patient: Mignon KELLEY Leila Swain Provider: Staci Whitt DPM :1970 A ge:54 Y S ex:Female Date:07/27/2025 Address:[address] [place], [place] [address] Pcp:Ijeoma Lim MD Subjective: * Chief Complaints: * * Medical History: Objective: * Vitals: Assessment: Plan: * Treatment: * Images: * The named appointment provid er may or may not be the originator of this progress note, and it is not deemed complete until electronically signed by the appointment provider. Sign off status: Pending * Provider: Staci Whitt DPM Date: 1 Generated for Emi bazan/Xiao/Juan Francisco on: 08:31 AM EDT
--- OUTSIDE RECORDS SUMMARY | 2025-08-18 00:51 | XMS_ITS | Continuity of Care Document ---
Author Organization [facility] ter Address [address] [place] [address]- Care Team Providers Care Vamp Liner Name Role Phone Ijeoma Lim MD Primary Care Physician [phone] Encounter [facility] Date(s): 08/17/25 - 08/18/[address] [address]- Discharge Disposition: A-D/C Walkout Attending Physician: Not on Staff, Attending MD Admitting Physician: Not on Staff, Admitting MD Referring Physician: Not on Staff, Referring MD Encounter Type: Disch ES Allergies, Adverse Reactions, Alerts Substance Criticality Severity [...] Given tetanus/diphtheria/pertussis, acel(Tdap) 12/27/17 Given 1Result Comment: [facility] [id number] 2Result Comment: Done at [facility] 3Result Comment: Done at work Medications albuterol 0.042% inhalation solution 3 mL = 1.25 mg, Neb, 4 times a day, PRN Wheezing/Shortness of Breath, # 50 each, 0 Refills, Maintenance, 10/05/24 2:32:00 PM EST, Solution, [facility]/pharmacy #[id number], Partial fill upon patient request [...] 3 Refills, Maintenance, 05/29/24 11:40:00 AM EDT, [facility]/pharmacy #[id number], Partial fill upon patient request [...] 10/26/24 10:32:00 AMEST, Route to Pharmacy Electronically, [facility]/pharmacy #[id number], 153, cm, 10/26/24 9:53:00 EST, Height, [...] 3 Refills, Maintenance, 10/26/24 10:32:00 AM EST, [id number], 153, cm, 10/26/24 9:53:00 EST, Height, [...] Refills, Maintenance, 07/14/24 10:16:00 AM EDT, Tablet, [facility]/pharmacy #[id number], Partial fill upon patient request [...] 3 Refills, Maintenance, 10/05/24 2:32:00 PM EST, [facility]/pharmacy #[id number], 153, cm, 07/14/24 9:26:00 EDT, Height, [...] 1 Refills,Maintenance, 07/21/25 9:21:00 AM EDT, Solution, [facility]/pharmacy #[id number], Partial fill upon patient request [...] Refills, Maintenance, 04/29/24 2:55:00 PM EDT, Capsule, [id number], 152, cm, 03/11/24 11:02:00 EDT, Height, 77.5, kg, 03/11/24 10:59:00 EDT, Dry Weight Start Date: 04/29/24 Stop Date: 04/24/25 Status: Ordered Medication Dispense Status: Completed Quantity: 90.0 Unit: capsule Total Allowed Fills: 4 Fills Dispensed: 0 Zepbound Pen 2.5 mg/0.5 mL subcutaneous solution = 2.5 mg, Subcutaneous Infusion, Every 7 days, # 2 mL, 3 Refills, Maintenance, 04/13/25 11:44:00 AM EDT, [facility], Partial fill upon patient request [...] oldest [Reference Range]: 1 2 3 Height 153 cm (08/17/25 7:41 PM) 153 cm (08/17/25 7:37 PM) Weight 63.4 kg (08/17/25 7:41 PM) 63.4 kg (08/17/25 7:37 PM) Oxygen Saturation [94-100 %] 100 % (08/17/25 11:33 PM) 100 % (08/17/25 9:58 PM) 99 % (08/17/25 7:37 PM) Pulse Rate [55-90 bpm] 60 bpm (08/17/25 11:33 PM) 63 bpm (08/17/25 9:58 PM) 70 bpm (08/17/25 7:37 PM) Body Mass Index [18.5-24.99 kg/m2] 27.08 kg/m2 *H* (08/17/25 7:37 PM) Blood Pressure [90-138/55-84 mm Hg] 150/75mm Hg *H* (08/17/25 11:33 PM) 155/82mm Hg *H* (08/17/25 9:58 PM) 181/78mm Hg *H* (08/17/25 7:37 PM) Respiratory Rate [16-30 br/min] 20 br/min (08/17/25 11:33 PM) 20 br/min (08/17/25 9:58 PM) 20 br/min (08/17/25 7:37 PM) Temperature [96.8-100.4 DegF] 98.2 DegF (08/17/25 11:33 PM) 98.8 DegF (08/17/25 9:58 PM) 99.6 DegF (08/17/25 7:37 PM) Mode of Delivery (Oxygen) Room air (08/17/25 11:33 PM) Room air (08/17/25 9:58 PM) Room air (08/17/25 7:37 PM) Blood pressure sites Arm, left (08/17/25 11:33 PM) Arm, left (08/17/25 9:58 PM) Arm, right (08/17/25 7:37 PM) Temperature Route Oral (08/17/25 11:33 PM) Oral (08/17/25 9:58 PM) Oral (08/17/25 7:37 PM) Dry Weight 63.4 kg (08/17/25 7:41 PM) 63.4 kg (08/17/25 7:37 PM) Weight Obtained Via Patient/family state d (08/17/25 7:37 PM) Dry Weight Obtained Via Patient/family s tated (08/17/25 7:37 PM) Social History Social History Type Response Smoking Status Never smoker; Tobacc o user in household: No entered on: 10/01/17 Sexual Orientation Self described orien tation: ; Straight or heterosexual Sex Sex Representation Female (finding) Status Unknown EKG study * Event Display: EKG Authored Date: * Event Display: ECG 12-Lead Authored Date: Please click on pdf link to open report * Event Display: ECG 12-Lead Authored Date: Ventricular Rate: 66 BPM Atrial Rate: 66 BPM P-R Interval: 146 ms QRS Duration: 92 ms Q-T Interval: 416 ms QTC Calculation(Bazett): 436 ms P [place]: 55 degrees R [place]: -25 degrees T [place]: 6 degrees Normal sinus rhythm Incomplete right bundle branch block Moderate voltage criteria for LVH, may be normal variant ( R in aVL , Humza product ) Poor R-wave progression ; consider anterior infarct, lead placement, or normal variant Abnormal ECG When compared with ECG of 14-Apr-2025 12:36, Incomplete right bundle branch block is now Present Confirmed by ADRIEL SOTO MD ([id number]) on 08/18/2025 9:57:06 AM [place]: ADRIEL SOTO MD Patient Care team information Care Team Personnel Name: Michelle LIN, Bailee Position: S RN Member Role: Primary Care Nurse Name: Ijeoma Lim MD Position: [facility] Physician - Primary Care Member Role: PCP Address: [address] [place] [address] Adult & Pediatric [address] Telecom: Care Team Related Persons Name: TAZ BATES Insurance Providers Guarantor name: ANTONI DRUMMOND Health Plan Information #: 1 Payer: [employer] Payer Identifier: TAWNY Member Number: [id number] Group Number: [id number] Subscriber Identifier: [id number] Relationship to Subscriber: self Coverage Type: Self-pay (Includes applicants for insurance and Medicaid applicants) Coverage Verification Date: TAWNY Telecom: TAWNY Address: NA
--- NOTE | ~2025-08-19 | US_ITS ---
EXAMINATION: US RETROPERITONEAL LIMITED, RIGHT (RENAL ONLY) CLINICAL INFORMATION: Right flank pain. COMPARISON: Previous CT of the abdomen and pelvis most recently August 16, 2025 TECHNIQUE: Real-time imaging of the right kidney. FINDINGS: RIGHT KIDNEY: 10.8 x 4.5 x 4.6 cm (SAG x AP x TRV). The kidney is normal in size, contour, and echogenicity. Renal cortical thickness is normal. 2 x 2 x 4 mm echogenic density in the upper pole with twinkle artifact suggestive of a small stone. No focal parenchymal lesions. No hydronephrosis. US/US renal RT IMPRESSION: Small right upper pole renal stone. No hydronephrosis.. Electronically signed by: oDmenica Nath MD 08/19/2025 09:37 AM EDT
[2025-08-19 07:46] VITALS: BP 190/95; PULSE 65; RESP 16; TEMP 36.6; O2SAT 99; BMI 27.3
--- NOTE | 2025-08-19 08:12 | ED_ITS ---
HPI - Back Pain/Injury General Chief Complaint: Back Pain/Injury Stated Complaint: low back pain Time Seen by Provider: 08/19/25 08:12 Source: patient Mode of arrival: ambulatory Limitations: no limitations History of Present Illness ED Provider: MARLYN RODRIGUEZ PA-C HPI Narrative: 54 year old female with pmhx significant for neprholithiasis >13 years ago, HTN presents to the ED today for evaluation of abdominal pain x4 days. Reports intermittent right lower quadrant pain radiating to her right groin and right lower back. She was evaluated at our facility 4 days ago for same, diagnosed with nonobstructing renal stones, and discharged home with flexeril/lido patches/zofran. taking these as prescribed without relief. Pain has now become constant. Denies urinary sx. Surgical history includes complete hysterectomy. Denies hx of spinal sx, IVDU. Denies injury/trauma/falls. Related Data Previous Rx's ?Medication ?Instructions ?Recorded potassium chloride 20 mEq oral 20 meq PO DAILY 7 days #7 ea 04/30/23 packet furosemide 20 mg tablet (Lasix) 20 mg PO DAILY #3 tabs 02/28/24 potassium chloride 20 mEq oral 20 meq PO DAILY 5 days #30 ea 02/28/24 packet ondansetron 4 mg disintegrating 4 mg PO Q6-8H PRN naus ea and 10/23/24 tablet vomiting #7 tabs potassium chloride 20 mEq 20 meq PO DAILY #30 tabs 01/12 tablet,extended release cyclobenzaprine 5 mg tablet 5 mg PO TID PRN muscle spa sm 4 08/16/25 days #14 tabs lidocaine 5 % topical patch 1 patch topical DAILY #15 ea 08/16/25 ondansetron 4 mg disintegrating 4 mg PO Q8H PRN nausea and 08/16/25 tablet vomiting #14 tabs ketorolac 10 mg tablet 10 mg PO Q8H PRN pain (scale score 08/19/25 4-6) 5 days #15 tabs Allergies Allergy/AdvReac Type Severity Reaction Status Date / Time latex Allergy Rash Verified 08/19/25 07:48 Penicillins Allergy Palpitation Verified 08/19/25 07:48 s Review of Systems 2 Review of Systems: Yes all other systems are reviewed and are negative PMFSH Past Medical History Attestation statement: The following information was validated with the patient. Source: old records reviewed and nursing notes reviewed Medical History PVC (premature ventricular contraction) HTN (hypertension) GERD (gastroesophageal reflux disease) Hyperlipidemia Social History Social History Alcohol intake: never Patient Tobacco Use Status: Never used Tobacco Smoked in Last 30 Days: No Use of substances other than those prescribed or required for medical reasons: No Advance Directives: Yes Advance Directives Information Provided: No Advance Directives on File: No Patient : No Physical Exam 2 Vital Signs: Vital Signs: Last Vital Signs Temp 97.8 F 08/19/25 08:29 Pulse 60 08/19/25 08:29 Resp 20 08/19/25 08:29 BP 175/99 H 08/19/25 08:29 Pulse Ox 99 08/19/25 08:29 O2 Del Method Room Air 08/19/25 08:29 BMI result Body Mass Index 27.3 hypertensive, vitals are otherwise wnl General: Well appearing, in no acute distress. Skin: Warm, dry, intact. No rashes or lesions. Head: Normocephalic, atraumatic. EENT: Hearing is intact b/l. Conjunctiva clear. Sclera is anicteric. PERRLA. EOM intact. Moist mucous membranes.? Cardiac: Chest wall symmetric. RRR Lungs: Normal respiratory effort without accessory muscle use. CTA bilaterally. Abdomen: Soft, non-tender, non-distended. No rebound tenderness or guarding. Positive BS x4. mild CVAT to R. Back: No midline spinous or paraspinal tenderness. No step off deformity. Ext: Upper and lower extremities atraumatic, without tenderness, deformity, swelling or erythema Neuro: AOx3. Normal speech. Course Course Course Narrative: CBC without leukocytosis or left shift. No anemia. H&H stable. Chemistry showing hypokalemia to 3.1, magnesium 2.2. No CARLA. Urine without infection or blood. > I have reviewed CT abdomen/pelvis obtained 3 days ago showing normal appendix. There are tiny nonobstructive calculi within bilateral kidneys, no obstructive uropathy. > patient is s/p hysterectomy inluding ovaries - I have no concern for ovarian torsion. her presentation is less consistent with acute appendicitis and imaging 3 days ago did not show any concerning signs of infection. > renal US today shows small right upper pole renal stone, no evidence of hydro. > patient has received IV fluids, IV potassium and Toradol for pain control Patient may be passing small renal stones. on re-eval, her pain has completely resolved after receiving Toradol. She is sitting comfortably on the exam bed, playing on her phone. i feel she is stable for discharge at this time with urology follow up. Medications Administered Generic Name Dose Route Start Last Admin Trade Name Freq PRN Reason Stop Dose Admin Potassium Chloride 10 meq in 100 mls @ 100 mls/hr 08/19/25 09:45 08/19/25 10:05 Potassium Chloride/H20 IV 08/19/25 11:44 100 mls/hr Q1H CRYSTAL Administration Discontinued Medications Generic Name Dose Route Start Last Admin Trade Name Freq PRN Reason Stop Dose Admin Sodium Chloride 1,000 mls @ 999 mls/hr 08/19/25 08:30 08/19/25 08:46 Ns IV 08/19/25 09:30 999 mls/hr .Q1H1M CRYSTAL Administration Ketorolac Tromethamine 30 mg 08/19/25 08:28 08/19/25 08:49 Ketorolac Tromethamine 30 Mg/Ml Vial IVPUSH 08/19/25 08:29 30 mg ONCE ONE Administration Ondansetron HCl 4 mg 08/19/25 07:49 08/19/25 07:51 Ondansetron Odt 4 Mg Tab.Rapdis TRANSLINGU 08/19/25 07:50 4 mg ONCE ONE Administration Medical Decision Making Medical Decision Making MDM Narrative: 54 year old female with pmhx significant for neprholithiasis >13 years ago, HTN presents to the ED today for evaluation of abdominal pain x4 days. Differential diagnoses: renal colic, neprholithiasis, obstructing ureteral stone, UTI Abdominal exam without peritoneal signs. No evidence of acute abdomen at this time. Well appearing. Low suspicion for acute hepatobiliary disease (including acute cholecystitis), acute infectious processes (pneumonia, hepatitis, pyelonephritis, PID, TOA), appendicitis, vascular catastrophe, bowel obstruction or viscus perforation, ovarian cyst/ rupture/ torsion, ectopic - given hx of complete hysterectomy. Presentation not consistent with other acute, emergent causes of abdominal pain at this time. Plan: labs, renal US, review of CT scan done 3 days ago, pain control, IVF, and re-evaluation. Differential Diagnosis Differential Diagnoses: The differential diagnosis associated with the presentation includes as above. Admission/Observation not indicated. Lab Data MDM Lab Attestation statement: I reviewed the patient's lab results. as above. 08/19/25 08:28 08/19/25 08:28 Labs: Lab Results 08/19/25 08/19/25 Range/Units 08:28 09:52 WBC 6.4 (4.8-10.8) X10*3/uL RBC 4.76 (4.20-5.50) X10*6/uL Hgb 13.6 (12.0-16.0) g/dl Hct 41.3 (37.0-47.0) % MCV 86.8 (80.0-98.0) fL MCH 28.6 (27.0-33.0) pg MCHC 32.9 (31.0-35.0) g/dl RDW 14.3 (11.0-16.0) % Plt Count 357 (160-400) X10*3/uL MPV 10.5 (9.4-12.3) fL Immature Gran % (Auto) 0.2 (0.0-0.4) % Neut % (Auto) 53.8 (45-73) % Lymph % (Auto) 36.3 (20-40) % [place] % (Auto) 8.8 (2-11) % Eos % (Auto) 0.3 (0-4) % Baso % (Auto) 0.6 (0-2) % Lymph # (Auto) 2.3 (1.2-4.9) X10*3/uL [place] # (Auto) 0.6 (0.1-1.2) X10*3/uL Eos # (Auto) 0.0 (0.0-0.4) X10*3/uL Baso # (Auto) 0.0 (0.0-0.2) X10*3/uL Abs Immat Gran (auto) 0.01 (0.00-0.03) X10*3/uL Absolute Neuts (auto) 3.4 (2.0-8.3) x10*3/uL Absolute Nucleated RBC 0.000 (0.0-0.012) X10*3/uL Nucleated RBC % (auto) 0.0 (0.0-0.2) /100WBC Sodium 141 (135-145) mmol/L Potassium 3.1 L (3.3-5.1) mmol/L Chloride 105 (96-108) mmol/L Carbon Dioxide 29 (22-29) mmol/L Anion Gap 10 L (12-20) BUN 13 (9-16) mg/dL Creatinine 0.84 (0.5-1.4) mg/dL Estim Creat Clear Calc 64.4 Estimated GFR > 60 Random Glucose 83 (60-115) mg/dL Calcium 8.6 (8.4-10.2) mg/dL Magnesium 2.2 (1.6-2.6) mg/dL Urine Color Yellow Urine Appearance Clear Urine pH 7.0 (5.0-9.0) Ur Specific [place]cl[place] 1.015 (1.005-1.025) Urine Protein Negative (Neg-Trace) mg/dL Urine Glucose (UA) Negative (Negative) mg/dL Urine Ketones Negative (Negative) mg/dL Urine Blood Negative (Negative) Urine Nitrite Negative (Negative) Ur Leukocyte Esterase Negative (Negative) Independent Interpretation I performed an independent interpretation of an: Ultrasound and CT Scan Interpretation: renal us without evidence of hydronephrosis ct a/p on 08/16/25 showing multiple renal stones Radiology Impression Discussion of test interpretation with radiology: I have reviewed the radiologist's reading. Radiologist Impression: Procedure(s): US renal RT Accession Number(s): [id number] cc: IJEOMA CAMPOS MD; Marlyn Rodriguez~ Reason for Exam: right flank/RLQ pain ?stones, hydro EXAMINATION: US RETROPERITONEAL LIMITED, RIGHT (RENAL ONLY) CLINICAL INFORMATION: Right flank pain. COMPARISON: Previous CT of the abdomen and pelvis most recently August 16, 2025 TECHNIQUE: Real-time imaging of the right kidney. FINDINGS: RIGHT KIDNEY: 10.8 x 4.5 x 4.6 cm (SAG x AP x TRV). The kidney is normal in size, contour, and echogenicity. Renal cortical thickness is normal. 2 x 2 x 4 mm echogenic density in the upper pole with twinkle artifact suggestive of a small stone. No focal parenchymal lesions. No hydronephrosis. US/US renal RT IMPRESSION: Small right upper pole renal stone. No hydronephrosis.. Electronically signed by: Domenica Nath MD 08/19/2025 09:37 AM EDT RP Procedure(s): CT abdomen pelvis w IV con Accession Number(s): [id number] cc: Anna Beal DO; IJEOMA CAMPOS MD~ Report Number: [id number]: Total DLP = 0.00 mGy-cm Reason for Exam: RLQ pain, appy rule out CLINICAL HISTORY: RLQ pain, appy rule out CT abdomen and pelvis with contrast Comparison: CT/SR - CT ABDOMEN PELVIS W IV CON - 10/23/24 01:34 EST Findings: No consolidation or effusion. 3 mm nonobstructive calculus within the upper pole of the right kidney. Two tiny nonobstructive calculi within the left kidney, the larger measuring 3 mm in size. No ureteral calculus or hydronephrosis. Small kidney cysts are incidentally noted. Remaining abdominal organs are unremarkable. There are no calcified gallstones. No bowel obstruction, pneumoperitoneum, or pneumatosis. Prior partial hysterectomy. Poorly distended urinary bladder. Normal appendix. The bones are intact. IMPRESSION: 1. The appendix is normal. There is no evidence of appendicitis. 2. There are tiny nonobstructive calculi within the bilateral kidneys. This document has been electronically signed by: Chichi Collazo MD on 08/16/2025 19:05:40 External Record Review External record reviewed: Inpatient record Prescription Management I considered prescription management with: Pain Medication Chronic Conditions Patient?s care impacted by: Hypertension Social Determinants Patient?s care significantly limited by Social Determinants of Health including: Other Social Determinant of Health Critical Care Time Critical Care Time Critical Care Time: Yes Total Critical Care Time: 31 Attestation: Critical care time in the amount of 31 minutes has been provided to the patient in terms of direct patient care, frequent reevaluation, review and interpretation of medical data and results, and management of potentially life- threatening conditions. This is all outside of any medical procedures. Discharge Plan Discharge Clinical Impression: Renal colic, Hypokalemia Patient Disposition: Home, Self-Care Instructions: Renal Colic (ED) Additional Instructions: You were evaluated in the ED today for abdominal/back pain. Your blood work shows low potassium levels - you were given repletion today. I advised you follow up with your PCP for repeat blood work to ensure these levels normalize. Your labs are otherwise reassuring. Your urine is negative for infection. The ultrasound of your right kidney does not demonstrate urine back up making an obstructing renal stone less likely. You are likely passing small kidney stones. Your pain is well controlled with toradol. I am sending this to your pharmacy for you to take as needed for pain. Do not take this with other NSAIDs such as Motrin/ibuprofen, Aleve as this can cause increased risk of GI bleeding. You may also take Tylenol. I am also giving him a referral to a urologist. Call them to establish care. They will not call you. Return with any new or worsening symptoms. In the case of an emergency call 911. Prescriptions: New ketorolac 10 mg tablet 10 mg PO Q8H PRN (Reason: pain (scale score 4-6)) 5 Days Qty: 15 0RF Rx Instructions: maximum total duration of 5 days from all oral, intranasal, or parenteral formulations No Action potassium chloride 20 mEq packet 20 meq PO DAILY 7 Days Qty: 7 0RF furosemide [Lasix] 20 mg tablet 20 mg PO DAILY Qty: 3 0RF potassium chloride 20 mEq packet 20 meq PO DAILY 5 Days Qty: 30 0RF potassium chloride 20 mEq tablet extended release 20 meq PO DAILY Qty: 30 0RF ondansetron 4 mg tablet,disintegrating 4 mg PO Q6-8H PRN (Reason: nausea and vomiting) Qty: 7 0RF cyclobenzaprine 5 mg tablet 5 mg PO TID PRN (Reason: muscle spasm) 4 Days Qty: 14 0RF lidocaine 5 % adhesive patch,medicated 1 patch topical DAILY Qty: 15 0RF Rx Instructions: leave on most painful area for up to 12 hrs ondansetron 4 mg tablet,disintegrating 4 mg PO Q8H PRN (Reason: nausea and vomiting) Qty: 14 0RF Referrals: [facility] [Provider Group, Urology] Ijeoma Campos MD [Primary Care Provider, Internal Medicine] Stand Alone Forms: Work/School Release Print Language: Solomon Islander
[2025-08-19 08:29] VITALS: BP 175/99; PULSE 60; RESP 20; TEMP 36.6; O2SAT 99
--- OUTSIDE RECORDS SUMMARY | 2025-08-19 08:29 | XMS_ITS | Clinical Summary ---
Author Organization [facility] Address [address] [place] [address] Phone Care Team Providers Care Culinary Internship Name Role Phone Ijeoma Lim MD Primary Care Provider [phone]- [phone] Allergies Active Allergy Reactions Criticality Noted Date [...] Description 06/01/2025 1:00 PM EDT Office Visit [facility] [address] [place] [address] Amelia Heck PA-C Aftercare following surgery of the skin or subcutaneous tissue (Primary Dx) 05/28/2025 Telephone [facility] [address] [place] [address] Wen Obando, MATERIAL PREPARATION WORKER Post-op from Last 3 Months Family History [...] 04/27/2025 6:26 AM EDT Plan of Treatment Health Maintenance Due [...] topic Medical Devices Not on file Insurance [facility] [place] [id number] [facility] [place] [id number] [facility] [place] [address] [facility] Member Subscriber Plan / Payer (Ef fective 2024-) Name:Leila Sanchez Relation to Subscriber:Self Name:Leila Sanchez Payer ID:Not on file Type:HMO Address: [place] [id number] Advance Directives For more information, please contact: [phone] (9AM - 5PM [facility], Saturday-Saturday) * Full Code (Latest Code Status on File) Date Activated Date Inactivated Comments 04/27/2025 6:26 AM Question Answer Comments Code Status Confirmed With: Other (specify below ) Code Discussion Comments: periop Care Teams Culinary Internship Relationship Specialty Start Date End Date Ijeoma Lim MD [address] [place] [address] PCP - General Internal Medicine 10/02/23 Additional Source Comments The information contained in this document represents components of the legal health record. It is not the complete legal health record.[facility]
--- OUTSIDE RECORDS SUMMARY | 2025-08-19 08:29 | XMS_ITS | Encounter Summary ---
Author Organization [facility] Address [address] [place] [address] Phone Care Team Providers Care Mixing And Dispensing Supervisor Name Role Phone Ijeoma Lim MD Primary Care Provider [phone]- [phone] Encounter Details Date Type Department Care Team (Late st Contact Info) Description 04/27/2025 Procedure Pass OR Admitting Dept - Virtual Department [address] [place] [address] Social History Tobacco Use Types Packs/Day Years [...] as of this encounter Plan of Treatment Not on file documented as of this encounter Visit Diagnoses Not on filedocumented in this encounter Care Teams Mixing And Dispensing Supervisor Relationship Specialty Start Date End Date Ijeoma Lim MD [address] [address] PCP - General Internal Medicine 10/02/23 documented as of this encounter Additional Source Comments The information contained in this document represents components of the legal health record. It is not the complete legal health record.[facility]
--- OUTSIDE RECORDS SUMMARY | 2025-08-19 08:30 | XMS_ITS | Patient Health Record ---
Author Organization [facility] Address [address] [place] [address] Care Team Providers Care Service Learning Coordinator Name Role Phone Ijeoma Lim MD Primary Care Provider Sofia Montero Unavailable [phone] Allergies Allergen (clinical drug ingredient) Drug/Non Drug Allergy documented on EMR Reaction Allergy Type Onset Date Status Adhesive rash Allergy Active Latex Latex rash Allergy Active Penicillin rash Drug Allergy Active Reason For Referral No Information Medications Medication SIG (Take, Route, Frequency, Duration) Notes Start Date End Date Status Vitamin D Active Aspirin 81 MG 1 tablet Orally Once a day Active Losartan Potassium 100 MG 1 tablet Orall y Once a day Active Levothyroxine Sodium 137 MCG 1 tablet in the morning on an empty stomach Orally Once a day Active Ciclopirox Olamine 0.77 % 1 application Externally Twice a day; Duration: 30 days Active Rosuvastatin Calcium 20 MG 1 tablet Oral ly Once a day Active Estradiol 1 MG 1 tablet Orally Once a day Active PriLOSEC Active Potassimin Active Chlorthalidone 25 MG 1 tablet in the mor leif with food Orally Active Social History Tobacco Use: Social History Observation Description Date Details (start date - stop date) Never Smoker NA - NA Tobacco Use/Smoking Question Answer Notes Are you a: nonsmoker Additional Findings: Tobacco Non-User Current no n-smoker Alcohol Screen Question Answer Notes Did you have a drink containing alcohol in the p ast year? No Points 0 Interpretation Negative Tobacco use other than smoking: Question Answer Notes Are you an other tobacco user? No Encounters Encounter Location Date Provider Diagnosis [facility] [address] [place] [address] 01/27/2025 [facility] [address] [place] [address] 04/06/2025 Sofia Whitt [facility] [address] [place] [address] 05/11/2025 Sofia Whitt Plan Of Treatment Next Appt Details Provider Name:Sofia pelayo, 10/12/2025 02:30:00 PM, [address] [place], [address], Insurance Providers Payer Name Payer Address Payer Phone Subscriber Number Group Number Insured Name Patient Relationship to Insured Coverage Start Date Coverage End Date [facility] [address] [place] [address] [phone] [id number] Leila Nielsen Self - patient is the insured Medical (General) History Medical History History ICD Code Anemia Anxiety asthma Cancer covid-19 Depression Headaches/Migraines Hiatal hernia High blood pressure Reflux ( GERD) sinusitis thyroid Chicken pox Surgical History Surgery Date(Month/Year) hysterectomy 2020 carpal tunnel surgery thymectomy 2019
--- OUTSIDE RECORDS SUMMARY | 2025-08-19 08:30 | XMS_ITS | Patient Health Record ---
Author Organization Ofelia Feliz [facility] Address [address] [place] [address] Care Team Providers Care Country Director Name Role Phone SUSSY CAMPOS Primary Care Provider UnavailBAYLEE Alaniz Unavailable [phone] Allergies Allergen (clinical drug ingredient) Drug/Non Drug Allergy documented on EMR Reaction Allergy Type Onset Date Status Latex Latex rash Allergy Active Penicillin Arrhythmia Drug Allergy Activ e Reason For Referral No Information Medications Medication SIG (Take, Route, Frequency, Duration) Notes Start Date End Date Status Levothyroxine Sodium 100 MCG TAKE 1 TABL ET BY MOUTH DAILY FOR 60 DAYS Oral; Duration: 90 days Active Mesalamine 1000 MG UNWRAP AND INSERT 1 SUPPOSITORY RECTALLY AT BEDTIME Rectal; Duration: 90 Days Active Chlorthalidone 25 MG Oral; Duration: 90 Days Active Estradiol 1 MG 1 tablet Orally Once a day; Duration: 90 days Active Sertraline HCl 25 MG 1 tablet Orally Onc e a day Active Potassium Chloride 20 MEQ Oral; Duration: 5 Days PRN Active Omeprazole 40 MG Oral; Duration: 90 Days Active D3-1000 25 MCG (1000 UT) TAKE 1 CAPSULE BY MOUTH EVERY DAY Oral; Duration: 90 Days Active Ciclopirox Olamine 0.77 % External; Dura tion: 30 Days Active Rosuvastatin Calcium 20 MG Oral; Duration: 90 Days Active Social History Tobacco Use: Social History Observation Description Date Details (start date - stop date) Never Smoker NA - NA AUDIT-C (Standard) Question Answer Notes Did you have a drink containing alcohol in the p ast year? No Points 0 Interpretation Negative Tobacco Control (Standard) Question Answer Notes Tobacco use: Nonsmoker Problems Problem Type SNOMED Code ICD Code Onset Dates Problem Status W/U Status Risk Notes Problem Menopause (699670528) Menopausal and female climacteric states (N95.1) Active confirmed Problem Essential hypertension (98887350) Essential (primary) hypertension (I10) Active confirmed Problem Hypothyroidism (38794862) Hypothyroidism, unspecified (E03.9) Active confirmed Problem Hyperlipidemia (73610675) Hyperlipidemia, unspecified (E78.5) Active confirmed Problem Mild recurrent major depression (47268451) Major depressive disorder, recurrent, mild (F33.0) Active confirmed Problem Anxiety disorder (537856637) Anxiety disorder, unspecified (F41.9) Active confirmed Problem Gastro-esophageal reflux disease without esophagitis (007668009) Gastro-esophagea l reflux disease without esophagitis (K21.9) Active confirmed Problem 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) Active confirmed Problem COVID-19 (738660370) COVID-19 (U07.1) Active confirmed Vital Signs Temperature 97.8 degrees Fahrenheit 06/11/2025 Blood pressure diastolic 74 mm Hg 06/11/2025 Height 60 in 06/11/2025 Blood pressure systolic 140 mm Hg 06/11/2025 Weight 146 lbs 06/11/2025 BMI 28.51 kg/m2 06/11/2025 Encounters Encounter Location Date Provider Diagnosis [address] [place] [address] 06/11/2025 BAYLEE GILL Encounter for gynecological examination (general) (routine) without abnormal findings Z01.419 ; Encounter for screening mammogram for malignant neoplasm of breast Z12.31 and Menopausal and female climacteric states N95.1 Assessments Encounter Date Diagnosis (ICD Code) Assessment Notes Treatment Notes Treatment Clinical Notes Section Notes 06/11/2025 Encounter for gynecological examination (general) (routine) without abnormal findings (ICD-10 - Z01.419) During the visit, the following areas of concern were addressed: Discussed cervical cancer screening with either cytology alone every 3 years or high risk HPV co-testing every 5 years as per ASCCP guidelines. Advised continued annual pelvic exams. Patient encouraged to increase her level of exercise. SBE technique encouraged/tau ght. Patient reminded when annual mammogram is due. Patient encouraged to keep colon screening up to date. 06/11/2025 Encounter for screening mammogram for malignant neoplasm of breast (ICD-10 - Z12.31) 06/11/2025 Menopausal and female climacteric states (ICD-10 - N95.1) Plan Of Treatment Pending Test Test Name Order Date MM Digital Screening Mammogram 3D 2023 MM Digital Screening Mammogram 3D 2024 Next Appt Details Provider Name:BAYLEE HAMPTON Janey, 07/18/2026 08:20:00 AM, [address], [address], [place], [address], Insurance Providers Payer Name Payer Address Payer Phone Subscriber Number Group Number Insured Name Patient Relationship to Insured Coverage Start Date Coverage End Date [facility] [address] [facility] [place] [address] [id number] ANTONI BROOKS Self - patient is the insured 4 Medical (General) History Medical History History ICD Code Essential (primary) hypertension I10 Gastro-esophageal reflux disease without esophagitis K21.9 Hypothyroidism, unspecified E03.9 COVID-19 U07.1 Hyperlipidemia, unspecified E78.5 Indeterminate colitis K52.3 Anxiety disorder, unspecified F41.9 Major depressive disorder, recurrent, mi ld F33.0 Surgical History Surgery Date(Month/Year) Section Thyroidectomy 2019 Supracervical Hyst With BSO 2020 Carpal Tunnel Right Breast Bx (cyst aspiration) 2022 Reduction mammoplasty 04/2025 Hospitalization History Reason Date(Month/Year) See Surgical Hx. Childbirth
--- OUTSIDE RECORDS SUMMARY | 2025-08-19 08:30 | XMS_ITS | Patient Health Record ---
Author Organization [facility] Address [address] [place] [address] Reason For Referral No Information Plan Of Treatment No Information
--- OUTSIDE RECORDS SUMMARY | 2025-08-19 08:31 | XMS_ITS | Clinical Summary ---
Author Organization [facility] Address [address] [place] [address] Care Team Providers Care Ems Instructor Name Role Phone Ijeoma Lim MD Primary Care Provider [phone] Surgical History Surgery Date Site/Laterality Comments CARPAL TUNNEL RELEASE PROCEDURE: HISTORICAL CARPAL TUNNEL REL OTHER SURGICAL HISTORY PROCEDURE: HISTORICAL SUBTOTAL THYROIDECTOMY HYSTERECTOMY PROCEDURE: HISTORICAL HYSTERECTOMY OTHER SURGICAL HISTORY PROCEDURE: ADDED FINGER RECONSTRUCTION SURGERY Medical History Medical History Date Comments Hypertension DX:Hypertension Mood disorder (CMS/HCC V24) DX:M ood disorder ([facility]) Class 1 obesity DX:Class 1 obesi ty [...] age to complete this topic Care Teams Ems Instructor Relationship Specialty Start Date End Date Ijeoma Lim MD [address] [place] [address] PCP - General Internal Medicine 06/12/21
--- OUTSIDE RECORDS SUMMARY | 2025-08-19 08:32 | XMS_ITS | Data Portability ---
Author Organization [facility], [facility] Address [address] [place] [address] Care Team Providers Care Computer Forensics Technician Name Role Phone [facility] Primary Care Provider Assessment No assessment recorded. Plan of Treatment Reminders Order Date Submit Date Provider Last Modified By Organization Details Last Modified Time Details Appointments None recorded. Lab SARS CoV 2 (COVID-19) Ag, QL, [place], upper respiratory specimen 2022 [email or web address], [address] [place] [address], [address], 3 16:36:15 rapid flu (A+B) 2022 023 [email or web address] 5 _[facility], [address] [place] [address], [address], 3 16:36:14 Referral emergency medicine referral 2022 023 [email or web address] [facility] [address] [place], [address], 3 16:59:39 Procedures None recorded. Surgeries None recorded. Imaging electrocard iogram 2022 023 [email or web address] _[facility], [address] [place] [address], [address], 3 16:59:38 Medication Orders Ciloxan 0.3 % eye drops 2023 024 [id number], [address] [place], [address], 13:06:28 Patient TargetsNo targets recorded. Patient Instructions Encounter Date Encounter Id Patient Instructions Last Modified By Organization Details Last Modified Time 04/30/2023 [id number] You have been advised to go to the Emergency Department for further evaluation. [facility] has been advised of your impending arrival. EMS transport has been arrange. [email or web address] Not available 04/30/2023 16:55:29 12/31/2023 [id number] glenne: care instructions [email or web address] Not available 12/31/2023 13:06:26 Patient was evaluated by the Physician Sheet Metal Roofer using AV technology. This type of exam does not replace a need for an in-person evaluation if symptoms worsen or do not improve after 24-48 hours. [email or web address] Not available 12/31/2023 13:01:04 Reason for Referral Emergency Medicine Referral for Chest pain chest pain last night. Abnormal ekg. Referring Physician: Princess Nelson, Urgent Care, Encounter Date: 04/30/2023 Results Created Date Observation Date Name Description Value Unit Range Abnormal Flag Note LastModifiedBy Organization Detail LastModifiedTime 04/30/2004/30/2023 rapid flu (A+B) Unknown Analyte Normal = Negati ve Not Available [facility] [address] [place] [address] [place], [address], 04/30/2023 14:56:33 04/30/20 23 04/30/2023 rapid flu (A+B) Unknown Analyte Normal = Negati ve Not Available [facility] [address] [place] [address] [place], [address], 04/30/2023 14:56:33 04/30/20 23 04/30/2023 rapid flu (A+B) Unknown Analyte negati ve Not Available [facility] [address] [place] [address] [place], [address], 04/30/2023 14:56:33 04/30/20 23 04/30/2023 rapid flu (A+B) Unknown Analyte negati ve Not Available [facility] [address], [place], [address], 04/30/2023 14:56:33 04/30/20 23 04/30/2023 SARS CoV 2 (COVI D-19) Ag, QL, [place], upper respi rator y speci men Unknown Analyte Normal = Negati ve Not Available [address] [place] [address], [place], [address], 04/30/2023 14:56:27 04/30/20 23 04/30/2023 SARS CoV 2 (COVI D-19) Ag, QL, [place], upper respi rator y speci men Unknown Analyte negati ve Not Available [address] [place] [address], [place], [address], 04/30/2023 14:56:27 04/30/20 23 04/30/2023 elect franko philip am No observ ation record ed. BIN[facility] [address], [place], [address], 04/30/2023 16:37:31 Result Notes None recorded. Problems Name Problem SNOMED Code Status Onset Date Resolution Date Notes Provider Name and Address Organization Details Recorded Time Thyroidecto my Active Amelia mcnair, [place] - [facility] 3 14:50:35 Hypertensiv e disorder 71346144 Active Amelia mcnair, [place] - [facility] 3 14:50:44 Bilateral conjunctivi tis 0383533717035 9103 Active 2023 PREETI WILL [address] , [place], [address] , [place] - [facility] 4 13:04:12 Problem Notes None recorded. Procedures Surgical History Date Name Laterality Status Provider Name and Address Organization Details Recorded Time 12/31/19 24 Virtual Visit [place], [address], [place] - [facility] 12/31/2023 13:00:55 thyroidectomy [...] Name and Address Organization Details Recorded Time 846564 Product containin g penicilli n (product) medicatio n Not available Not available Not available 04/30/2023 61340 8001 SNOMED Amelialeonard Jeter null, [place] - [facility] 3 14:50:08 151704 latex environme nt,medica tion Not available Not available Not available 04/30/2023 80534 91 RxNorm Amelialeonard Campbellla null, [place] - [...] Updated DateTime 12/31/2023 152.4 cm 32.8 kg/m2 65770.52 g Ashley Huongjorge Responsible City 12/31/2023 12:52:56 Date Recorded Body height Body mass index (BMI) Body weight Pain severity - 0-10 verbal numeric rating [Score] - Reported Oxygen saturation Oxygen saturation in Arterial blood by Pulse oximetry Heart rate Respiratory rate Body temperature Systolic And Diastolic Provider Name and Address Organization Details Last Updated DateTime 152.4 cm 32.8 kg/m2 35672.5 2 g 8 98 % 98 % 63 /min 16 /min 98.5 [degF] 128/83 mm[Hg] Amelia Jeter [facility] 14:59:40 Social History Question Answer Notes LastModified by [employer]! Details LastModified Time Tobacco Smoking Status Never Smoker Amelia mcnair [facility] 04/30/2023 14:55:52 Have You Had Direct [...] Functional Status Question Answer Note LastModified by [employer]! Details LastModified Time Do you use any [...] ICD10 Code Diagnosis IMO Codes Diagnosis Note [id number] [address] [address] [address] [facility] [address] [place] [address] 08/07/2022 09:22:28 08/07/2022 10:09:49 [id number] [address] [facility] [address] [place] [address] 02/14/2022 16:47:54 02/14/2022 19:03:12 [id number] [address] [facility] [address] [facility] [place] [address] 07/25/2022 12:13:48 07/25/2022 16:21:49 [id number] [facility] [address] [address] [place] [address] 10/29/2021 08:03:28 10/29/2021 08:52:19 [id number] Princess Nelson MD [address] [address] [facility] [place] [address] 04/30/2023 14:31:40 04/30/2023 16:59:38 Chest pain 76904297 R07.9 [id number] [facility] WILL [address] [address] [place] [address] 12/31/2023 12:44:20 12/31/2023 13:33:30 Bilateral conjunctivitis [id number] 6640420 H10.9 Based on your presentati on and [...] 12/31/2023 PROMPT PAY Daisy Sanchez 12/31/2023 1 [place] [facility] Leila Sanchez [id number] Leila Sanchez 12/31/2023 1 [facility] (MEDICAID HMO) [id number] Leila Sanchez [id number] Leila Sanchez Notes Date Note Type Note [...] Princess Nelson MD [address] [place], [address], [place] - [facility] 04/30/2023 21:40:54 03/12/20 24 text/htm l Eye problemsReported by PatientHPIFor eye symptoms, patient reportsrednessanditchingbut reportsno sensitivity to light. For source of patient information, patient reportsinformation obtained from patientandpatient arrived at urgent care ambulatory. For location, patient reportsright. For severity, patient reportsmild. For onset/timing, patient [id number]. For context, patient reportscontact lens wearerandothers with [...] PREETI WILL [address] [place], [address], [place] - [facility] 12/31/2023 13:20:01 OBGyn Episode No OBEpisode recorded.
[2025-08-19 08:35] LABS: MANUAL DIFF FLAG NO
[2025-08-19 08:44] LABS: Hematocrit 41.3 % (37.0-47.0); Hemoglobin 13.6 g/dl (12.0-16.0); Imm Gran Abs Auto 0.01 X10*3/uL (0.00-0.03); Imm Gran Pct Auto 0.2 % (0.0-0.4); Lymphocytes Absolute Auto 2.3 X10*3/uL (1.2-4.9); Mean Corpuscular HGB Conc 32.9 g/dl (31.0-35.0); Mean Corpuscular Hemoglobin 28.6 pg (27.0-33.0); Mean Corpuscular Volume 86.8 fL (80.0-98.0); NRBC Abs Auto 0.000 X10*3/uL (0.0-0.012); NRBC Pct Auto 0.0 /100WBC (0.0-0.2); Platelet Count 357 X10*3/uL (160-400); Red Blood Count 4.76 X10*6/uL (4.20-5.50); White Blood Count 6.4 X10*3/uL (4.8-10.8)
[2025-08-19 08:50] LABS: Anion Gap 10 (12-20); Blood Urea Nitrogen 13 mg/dL (9-16); Calcium 8.6 mg/dL (8.4-10.2); Carbon Dioxide 29 mmol/L (22-29); Chloride 105 mmol/L (96-108); Creatinine Clr Calc Pharmacy 64.4; Estimated Glomerular Filt Rate > 60; Potassium 3.1 mmol/L (3.3-5.1); Sodium 141 mmol/L (135-145)
[2025-08-19 09:28] LABS: Magnesium 2.2 mg/dL (1.6-2.6)
[2025-08-19 10:05] LABS: Appearance Urine Clear; Glucose Urine UA Negative (Negative); PH 7.0 (5.0-9.0); Specific Gravity - Urine 1.015 (1.005-1.025)
[2025-08-19] MEDS: Potassium Chloride/H20 10 MEQ/100 ML PIGGYBACK 100 MEQ IV ×2 (10:05→11:24)
[2025-08-19 12:41] VITALS: BP 158/92; PULSE 63; RESP 20; TEMP 36.6; O2SAT 98
== END 2025-08-19 12:41 | disposition home or self-care (01) ==
PROVIDERS: Physician Assistant Medical; Emergency Provider Emergency Medicine; PCP Internal Medicine
DX: N23 Unspecified renal colic (principal); E87.6 Hypokalemia; Z87.442 Personal history of urinary calculi; Z87.19 Personal history of other diseases of the digestive system; Z79.899 Other long term (current) drug therapy
CPT/HCPCS: 36415; 76775; 80048; 81003; 83735; 85025; 96361; 96365; 96366; 96375; 99284; J1885; J3480

== ENCOUNTER → 2025-08-19 08:26 | Outpatient (BNV) | payer OTHER, SELFPAY | PROVIDERS: Emergency Provider Emergency Medicine; PCP Internal Medicine; Visit Provider Radiology Diagnostic Radiology | DX: N20.0 Calculus of kidney (principal) | CPT/HCPCS: 76775 ==

== ENCOUNTER 2025-10-11 13:26 | Outpatient (AMB) | payer OTHER, SELFPAY ==
--- NOTE | 2025-10-11 13:30 | MHC.OFFVIS ---
Intake Visit Reasons: Kidney stone (set)UA) Intake Note: Patient is present for KIDNEY STONES Urology Medication: Antibiotic Allergy:PENICILLINS Blood Thinner:NONE TODAY'S 0ML'S Echocardiologist Required: No Allergies latex Allergy (Verified 10/11/25 13:32) Rash Penicillins Allergy (Verified 10/11/25 13:32) Palpitations Medication List - Last Reconciled 10/11/25 by Miranda Chen MD estradiol 1 mg PO DAILY levothyroxine 137 mcg PO DAILY losartan 100 mg PO DAILY mecobalamin (vitamin B12) 1,000 mcg sublingual DAILY omeprazole 40 mg PO DAILY ondansetron 4 mg PO Q6-8H PRN ondansetron 4 mg PO Q8H PRN potassium chloride 20 mEq PO DAILY 5 days potassium chloride 20 mEq PO DAILY 7 days potassium chloride ER 20 mEq PO DAILY rosuvastatin 20 mg PO DAILY HPI Comments Details: 10/11/25--Leila is here as a new patient evaluation for kidney stones. History of Present Illness The patient is a 54 year old female presenting for a new patient evaluation for kidney stones. She reports a recent episode of severe pain lasting for almost a month, which led to multiple hospital visits. The pain was described as horrible, even with Toradol, and has since resolved. An ultrasound and CT scan in July showed a right kidney stone and possible tiny stones on the left. She states she has a history of passing approximately eight stones, with the last episode occurring 13 years ago during a difficult that also involved stones in both kidneys, the gallbladder, and high blood pressure. Her last urology consultation was over 20 years ago in [place]. Regarding her diet, she admits to low water intake, using Crystal Light for flavor, and recently consuming large amounts of high-sodium snacks like pretzels and popcorn after starting Zepbound for weight loss, which she has since stopped. Results - Imaging: An ultrasound and CAT scan from July revealed a right kidney stone, possibly some tiny ones on the left, and small, incidental cysts in the left kidney. - Labs: Urinalysis performed today was normal, showing no blood or signs of infection. Plan 1. Nephrolithiasis - The patient's stones are small. - The recent severe pain has resolved, suggesting the stone may have passed. - The plan is to obtain a Litholink 24-hour urine collection to assess for dietary and metabolic causes of stone formation. - Dietary counseling was provided, with pamplet; encouraging increased fluid intake of 48 to 64 ounces daily and a low-sodium diet. - Repeat imaging will be scheduled in a few months to assess the status of the kidney stones. 2. Left Renal Cyst - meets criteria of benign simple cyst - Reassurance was provided that these cysts are very common, incidental findings. [facility] Medical History PVC (premature ventricular contraction) HTN (hypertension) GERD (gastroesophageal reflux disease) Hyperlipidemia Social History Alcohol intake: never Patient Tobacco Use Status: Never used Tobacco Physical Exam Const General: cooperative, healthy appearing and no acute distress Orientation/consciousness: patient oriented x3 HEENT Head: Yes normal to inspection, Yes normocephalic and Yes atraumatic Eyes Conjunctivae: conjunctivae normal Neck Neck: Yes normal visual inspection and Yes trachea midline Chest Chest palpation & inspection: normal inspection of the chest Resp Effort & Inspection: normal respiratory effort Cardio Rate: regular rate GI Inspection: Yes normal to inspection Neuro General: patient oriented x3 Psych Appearance: grossly normal Office Procedures Post Void Residual Post Residual Void Post Void Residual (PVR): 0 20378-Pryc Void Residual by ultrasound Results Reviewed Results Reviewed: Date of Service: 08/19/25 EXAMINATION: US RETROPERITONEAL LIMITED, RIGHT (RENAL ONLY) CLINICAL INFORMATION: Right flank pain. COMPARISON: Previous CT of the abdomen and pelvis most recently August 16, 2025 TECHNIQUE: Real-time imaging of the right kidney. FINDINGS: RIGHT KIDNEY: 10.8 x 4.5 x 4.6 cm (SAG x AP x TRV). The kidney is normal in size, contour, and echogenicity. Renal cortical thickness is normal. 2 x 2 x 4 mm echogenic density in the upper pole with twinkle artifact suggestive of a small stone. No focal parenchymal lesions. No hydronephrosis. IMPRESSION: Small right upper pole renal stone. No hydronephrosis.. Date of Service: 08/16/25 CT abdomen and pelvis with contrast Comparison: CT/SR - CT ABDOMEN PELVIS W IV CON - 10/23/24 01:34 EST Findings: No consolidation or effusion. 3 mm nonobstructive calculus within the upper pole of the right kidney. Two tiny nonobstructive calculi within the left kidney, the larger measuring 3 mm in size. No ureteral calculus or hydronephrosis. Small kidney cysts are incidentally noted. Remaining abdominal organs are unremarkable. There are no calcified gallstones. No bowel obstruction, pneumoperitoneum, or pneumatosis. Prior partial hysterectomy. Poorly distended urinary bladder. Normal appendix. The bones are intact. IMPRESSION: 1. The appendix is normal. There is no evidence of appendicitis. 2. There are tiny nonobstructive calculi within the bilateral kidneys. Assessment & Plan Assessment & Plan (1) Bilateral kidney stones: Code(s): N20.0 - Calculus of kidney Category: Medical (2) Renal cyst, left: Code(s): N28.1 - Cyst of kidney, acquired Category: Medical (3) Flank pain: Code(s): R10.A0 - Flank pain, unspecified side Category: Medical Plan Plan 1. Nephrolithiasis - The patient's stones are small. - The recent severe pain has resolved, suggesting the stone may have passed. - The plan is to obtain a Litholink 24-hour urine collection to assess for dietary and metabolic causes of stone formation. - Dietary counseling was provided, with pamplet; encouraging increased fluid intake of 48 to 64 ounces daily and a low-sodium diet. - Repeat imaging will be scheduled in a few months to assess the status of the kidney stones. 2. Left Renal Cyst - meets criteria of benign simple cyst - Reassurance was provided that these cysts are very common, incidental findings. Orders: Orders CT kidney stone 1 Month N20.0 - Calculus of kidney, R10.A0 - Flank pain, unspecified side Patient Instructions: The patient had an opportunity to ask questions regarding treatment plan. The patient expressed understanding and agreement with the above treatment plan. The patient is aware they should contact our office by phone for worsening of their current condition or the appearance of new symptoms. Compliance is encouraged with any medications and followup testing that is ordered. It is a privilege to be allowed the opportunity to participate in the urologic care of your patient. If you have any questions or concerns regarding treatment for the above conditions please do not hesitate to contact me. The office telephone contact is [phone]. This note is constructed in part using voice recognition software. While every effort has been made to ensure accuracy mechanical detailer errors may have been included. Yours sincerely, Miranda Chen MD Scribe Plan - Not visible on output: Patient was informed and verbally consented to the use of an ambient scribe for clinic note documentation during this visit. Coding Level of Care Code New Pt Level 4 (46551) Diagnoses Bilateral kidney stones N20.0 Renal cyst, left N28.1 Flank pain R10.A0 CPT Codes Post Residual Void - PVR CPT Code: 95342-Rvhm Void Residual by ultrasound ([id number])
--- OUTSIDE RECORDS SUMMARY | 2025-10-11 16:51 | XMS_ITS | Clinical Summary ---
Author Organization [facility] Address [address] [place] [address] Care Team Providers Care Nodulizer Name Role Phone Ijeoma Lim MD Primary Care Provider [phone] Surgical History Surgery Date Site/Laterality Comments CARPAL TUNNEL RELEASE PROCEDURE: HISTORICAL CARPAL TUNNEL REL OTHER SURGICAL HISTORY PROCEDURE: HISTORICAL SUBTOTAL THYROIDECTOMY HYSTERECTOMY PROCEDURE: HISTORICAL HYSTERECTOMY OTHER SURGICAL HISTORY PROCEDURE: ADDED FINGER RECONSTRUCTION SURGERY Medical History Medical History Date Comments Hypertension DX:Hypertension Mood disorder (CMS/HCC V24) DX:M ood disorder ([facility]) Class 1 obesity DX:Class 1 obesi [...] Depression Screening 10/21/2024 COVID-19 Vaccine (1 - 2024-2 6 season) 2025 Influenza Vaccine (#1) 2025 RSV [...] age to complete this topic Care Teams Nodulizer Relationship Specialty Start Date End Date Ijeoma Lim MD [address] [place] [address] PCP - General Internal Medicine 06/12/21
--- OUTSIDE RECORDS SUMMARY | 2025-10-11 16:51 | XMS_ITS | Clinical Summary ---
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 No [...] (#1) 2025 , 09/02/2019, 07/25/2018 COVID-19 VACCINE (4 - 2024-2 6 season) 2025 09/01/2021, 11/24/2020, [...] topic Medical Devices Not on file Insurance [facility] [place] [address] [facility] [address] [facility] [place] [address] [facility] Advance Directives For more information, please contact: [phone] (9AM - 5PM N[facility], Saturday-Saturday) * Full Code (Latest Code Status on File) Date Activated Date Inactivated Comments 04/27/2025 6:26 AM Question Answer Comments Code Status Confirmed With: Other (specify below ) Code Discussion Comments: periop Care Teams Pull Through Hooker Relationship Specialty Start Date End Date Ijeoma Lim MD [id number] [place] [address] PCP - General Internal Medicine 10/02/23 Additional Source Comments The information contained in this document represents components of the legal health record. It is not the complete legal health record.[facility]
--- OUTSIDE RECORDS SUMMARY | 2025-10-11 16:51 | XMS_ITS | Encounter Summary ---
Author Organization [facility] Address [address] [place] [id number] Phone Care Team Providers Care Diesel Dinkey Engineer Name Role Phone Ijeoma Lim MD Primary Care Provider [phone]- [phone] Encounter Details Date Type Department Care Team (Late st Contact Info) Description 04/27/2025 Procedure Pass OR Admitting Dept - Virtual Department [address] [place] [address] Social History Tobacco Use Types Packs/Day Years [...] on filedocumented in this encounter Care Teams Diesel Dinkey Engineer Relationship Specialty Start Date End Date Ijeoma Lim MD [address], [place] [address] PCP - General Internal Medicine 10/02/23 documented as of this encounter Additional Source Comments The information contained in this document represents components of the legal health record. It is not the complete legal health record.[facility]
== END 2025-10-11 14:18 | disposition home or self-care (01) ==
LOC: HO.HUSH 13:27
PROVIDERS: PCP Internal Medicine; Visit Provider Urology
DX: N20.0 Calculus of kidney (principal); N28.1 Cyst of kidney, acquired; R10.A0 Flank pain, unspecified side; Z13.9 Encounter for screening, unspecified
CPT/HCPCS: 99204

== ENCOUNTER → 2025-10-11 13:26 | Outpatient (BNVA) | payer OTHER, SELFPAY | PROVIDERS: PCP Internal Medicine; Visit Provider Urology | DX: N20.0 Calculus of kidney (principal); N28.1 Cyst of kidney, acquired; R10.A0 Flank pain, unspecified side | CPT/HCPCS: 51798; 81003 ==